=== PATIENT | female | born 1940 | race Caucasian/White ===

== ENCOUNTER → 2017-03-22 | Outpatient (CLI) | payer MEDICARE, OTHER ==
--- NOTE | 2017-03-22 12:49 | Diagnostic Imaging Report ---
PROCEDURE: MRI right joint lower extremity without contrast. TECHNIQUE: Multiplanar, multisequence non contrast-enhanced MRI of the right lower extremity was accomplished. INDICATION: Right ankle pain. FINDINGS: There is mild to moderate amount of fluid in the tendon sheath of the peroneus longus and peroneus brevis suggestive of tenosynovitis. The tendon itself demonstrates no evidence of tear. The flexor hallucis longus tendon sheaths demonstrates small amount of fluid which is only seen at the level of the ankle joint with an adjacent ankle effusion probably secondary to communication with the joint rather than tenosynovitis. There is an os navicularis seen with edema seen around the posterior tibial tendon within the tendon sheath just proximal to the location of the os navicularis. The os navicularis itself demonstrates mild marrow edema. There is also marrow edema in the distal aspect of the lateral malleolus and prominent marrow edema along the anterior subtalar joint with subchondral cyst formation. There is also similar subchondral edema along the posterior aspect of the ankle and the talar head and posterior aspect of the tibial plafond. There is near complete loss of articular cartilage seen at the mid subtalar joint level with fluid signal filling the space seen. There is also areas of subchondral cyst formation within the intertarsal joints likely degenerative. The extensor tendons demonstrate no definite abnormality. The posterior talofibular ligament appears thickened probably secondary to old injury. The anterior talofibular ligament is intact. The medial ligaments demonstrate mild thickening probably related to old injury. There is also bone fragment at the undersurface of the medial malleolus measuring 5 mm without significant marrow abnormality likely related to old fracture. The Achilles tendon is normal. The plantar fascia demonstrate no significant thickening or evidence of focal inflammatory process around it. There is diffuse mild areas of subcutaneous edema however around the ankle and hindfoot region. IMPRESSION: 1. There is evidence of tenosynovitis involving the peroneal tendons and the posterior tibial tendon proximal to os navicularis. 2. 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 The degenerative changes are worst at the mid subtalar joints, where there is near-complete loss of the articular cartilage seen. Dictated by: Dictated on workstation # [id number]
== END ==
LOC: RAD 07:59
PROVIDERS: ATTEND Podiatrist Foot & Ankle Surgery
DX: M76.71 Peroneal tendinitis, right leg (principal); M19.071 Primary osteoarthritis, right ankle and foot
CPT/HCPCS: 73721

== ENCOUNTER 2017-08-30 20:57 | Outpatient (CLI) | payer MEDICARE, OTHER | END 2017-08-31 05:20 | disposition home or self-care (01) | LOC: SLEEP 20:57 | PROVIDERS: ATTEND Nurse Practitioner | DX: G47.33 Obstructive sleep apnea (adult) (pediatric) (principal) | CPT/HCPCS: 95810 ==

== ENCOUNTER 2017-11-03 10:00 | Outpatient (CLI) | payer MEDICARE, OTHER | END 2017-11-03 10:38 | disposition home or self-care (01) | LOC: SLEEP 10:00 | PROVIDERS: ATTEND Nurse Practitioner | DX: G47.33 Obstructive sleep apnea (adult) (pediatric) (principal); G47.10 Hypersomnia, unspecified; R06.83 Snoring ==

== ENCOUNTER → 2019-02-22 | Outpatient (CLI) | payer MEDICARE, OTHER | LOC: CARD 09:18 | PROVIDERS: ATTEND Family Medicine | DX: R60.0 Localized edema (principal) | CPT/HCPCS: 93306 ==

== ENCOUNTER 2019-05-27 11:13 | Inpatient (IN) | payer MEDICARE, OTHER ==
[~2019-05-27] VITALS: Ht 157.5 cm; Wt 133.5 kg
[2019-05-27] MEDS ORDERED: LACTATED RINGERS 1,000 ML IV ONE ×2 (11:31→12:29)
[2019-05-27 11:35] LABS: BASOPHILS % (AUTO) 0 % (0-10); EOSINOPHILS % (AUTO) 0 % (0-10); HEMATOCRIT 36 % (35-52); HEMOGLOBIN 11.7 G/DL (11.5-16.0); LYMPHOCYTES # (AUTO) 2.4 X 10^3 (1.0-4.0); LYMPHOCYTES % (AUTO) 10 % (12-44); MEAN CORPUSCULAR HGB CONC 33 G/DL (32-36); MEAN CORPUSCULAR VOLUME 94 FL (80-99); MEAN PLATELET VOLUME 10.8 FL (7.4-10.4); MONOCYTES # (AUTO) 0.9 X 10^3 (0.0-1.0); MONOCYTES % (AUTO) 4 % (0-12); NEUTROPHILS # (AUTO) 19.3 X 10^3 (1.8-7.8); NEUTROPHILS % (AUTO) 85 % (42-75); PLATELET COUNT 298 10^3/uL (130-400); RED CELL DISTRIBUTION WIDTH 13.8 % (10.0-14.5); WHITE BLOOD COUNT 22.7 10^3/uL (4.3-11.0)
[2019-05-27 11:36] LABS: MEAN CORPUSCULAR HEMOGLOBIN 30 PG (25-34)
[2019-05-27] MEDS ORDERED: ONDANSETRON 4 MG/2 ML (SDV) Z0FRAN IVP ONE (11:45)
[2019-05-27 11:49] LABS: BAND NEUTROPHILS 0 %; EOSINOPHILS % (MANUAL) 0 %; LYMPHOCYTES % (MANUAL) 12 %; MONOCYTES % (MANUAL) 3 %; NEUTROPHILS % (MANUAL) 85 %
[2019-05-27 11:50] LABS: BASOPHILS % (MANUAL) 0 %; RBC MORPH NORMAL
[2019-05-27 11:52] LABS: INR 1.3 (0.8-1.4); PROTHROMBIN TIME PATIENT 16.3 SEC (12.2-14.7)
[2019-05-27 12:05] LABS: ALBUMIN 3.8 GM/DL (3.2-4.5); BILIRUBIN,TOTAL 0.9 MG/DL (0.1-1.0); CALCIUM 9.4 MG/DL (8.5-10.1); CREATININE SERUM 1.44 MG/DL (0.60-1.30); POTASSIUM 3.6 MMOL/L (3.6-5.0); TOTAL PROTEIN 7.2 GM/DL (6.4-8.2)
[2019-05-27] MEDS ORDERED: ONDA4TAB10 PO (12:10)
[2019-05-27] MEDS ORDERED: GABA-486 PO (12:10)
[2019-05-27] MEDS ORDERED: SIMV40TA4 PO (12:10)
[2019-05-27] MEDS ORDERED: HYDR-3812 PO (12:10)
[2019-05-27] MEDS ORDERED: PRD20T (12:10)
[2019-05-27] MEDS ORDERED: AMIT10TA6 PO (12:10)
[2019-05-27] MEDS ORDERED: FURO40TA4 PO (12:10)
[2019-05-27] MEDS ORDERED: OXYC10TA7 PO (12:10)
[2019-05-27] MEDS ORDERED: LEVO50TA PO (12:10)
[2019-05-27] MEDS ORDERED: LISI10TA2 PO (12:10)
[2019-05-27] MEDS ORDERED: POTA20TA8 PO (12:10)
[2019-05-27] MEDS ORDERED: fentaNYL INJECTION 100 MCG/2 ML AMP IVP ONE (12:30)
[2019-05-27] MEDS ORDERED: metroNIDAZOLE 500MG/100ML IVPB 100 ML IV ONE (12:45)
[2019-05-27] MEDS ORDERED: cefTRIAXone FOR IV USE 1,000 MG in WATER (STERILE) FOR INJECTION 10 ML IV ONE (12:45)
--- NOTE | 2019-05-27 12:47 | Diagnostic Imaging Report ---
PROCEDURE: CT abdomen and pelvis without contrast. TECHNIQUE: Multiple contiguous axial images were obtained through the abdomen and pelvis without the use of intravenous contrast. Auto Exposure Controls were utilized during the CT exam to meet ALARA standards for radiation dose reduction. INDICATION: Abdominal pain. COMPARISON: There are no prior studies available for comparison. FINDINGS: The images through the low pelvis do show generalized thickening of the wall of the sigmoid colon. There are several diverticula in this area and there may be slight distortion of the pericolic fat in this region as well. The combination of these findings does suggest that there is an element of mild acute diverticulitis present. There is also suggestion of mild generalized thickening of the wall of the ascending colon and cecum and there may be slight distortion of the pericolonic fat in this area as well. The possibility that there is an element of mild colitis involving these segments of the colon should be considered as well. Furthermore there are few fluid filled segments of small bowel present. This finding could be related to a mild ileus perhaps secondary to enteritis. There is no pelvic mass or free fluid collection noted. There do appear to be surgical sutures in the right lower quadrant. These are of uncertain etiology. Correlation with patient's history would be recommended. The appendix was not well visualized. The gallbladder is surgically absent as well. The uterus was not visualized, it most likely too is surgically absent. Correlation with the patient's surgical history would be recommended. The urinary bladder is difficult to assess due to streak artifact related to the total hip prosthesis on the right. The liver, spleen, pancreas, kidneys, adrenals, aorta and inferior vena cava show no sign of an acute abnormality. The stomach is not well distended and consequently difficult to assess. There is a 2.5 x 3.5 cm hiatal hernia. The lung bases are generally clear. The bone windows show no sign of an acute fracture or of a destructive lesion. There is a grade I spondylolisthesis of L4 with respect to L5 and there is narrowing of the disc space at this level. There is also trefoil stenosis at the L4-L5 level and at L3-L4. IMPRESSION: 1. The findings do suggest mild acute/subacute sigmoid diverticulitis. There also appears to be mild colitis involving the ascending colon and cecum. Enteritis is suspected as well. 2. There is no acute abnormality of the abdomen and pelvis noted otherwise. 3. There are surgical sutures in the right lower quadrant. Correlation with the patient's surgical history would be recommended. The gallbladder and uterus are also surgically absent and there has been a total hip prosthesis procedure on the right. 4. 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 5. These results were discussed with Madhuri Hollis APRN at the time of this dictation. Dictated by: Dictated on workstation # [id number]
[2019-05-27 13:13] LABS: BILIRUBIN,URINE NEGATIVE (NEGATIVE); CLARITY,URINE CLEAR; COLOR,URINE YELLOW; GLUCOSE, URINE (UA) NEGATIVE (NEGATIVE); KETONES,URINE 1+ (NEGATIVE); LEUKOCYTE ESTERASE ,URINE 1+ (NEGATIVE); NITRITE,URINE POSITIVE (NEGATIVE); PH,URINE 5 (5-9); PROTEIN,URINE 3+ (NEGATIVE); UROBILINOGEN,URINE 1 MG/DL (NORMAL)
[2019-05-27 13:21] LABS: BACTERIA,URINE LARGE /HPF
--- NOTE | 2019-05-27 13:45 | ED Abdominal Pain ---
General Chief Complaint: Abdominal/GI Problems Stated Complaint: ABD PAIN Nursing Triage Note: Pt to ED via EMS for severe abdominal pain. Pt reports this has been an ongoing problem since having hip surgery in March. Pt reports feeling constipated, but reports solid BM this morning. Pt reports taking hydrocodone and oxycodone. Pt also reports no food intake since Mon. Pt c/o nausea. Pt visibly distended in the abdomen and no bowel sounds heard. Sepsis Screen: No Definite Risk History of Present Illness Date Seen by Provider: May 27, 2019 Time Seen by Provider: 11:15 Initial Comments 78 year old female arrives via EMS for generalized abdominal pain since 05/23/19. She reports constipation, nausea and vomiting with the abdominal pain. No history of diverticulitis, Crohn's, ulcerative colitis or other chronic abdominal problems. History of appendectomy when she had her hysterectomy and cholecystectomy. She had a total hip replacement on April 09, [address] Gaytan at [place]. Since then she's intermittently been taking hydrocodone and oxycodone. Was not started on a stool softener. She took Dulcolax yesterday and had a BM this morning. She is weaning off her walker and doing PT for her hip. She is having problems with Sciatica for her back and right leg. She started Prednisone last week. She reports a normal Colonoscopy about [address] Arellano. Timing/Duration: 4-5 Days Severity/Quality: Moderate Location: Generalized Abdomen Radiation: No Radiation Associated Symptoms: Nausea/Vomiting Allergies and Home Medications Allergies Uncoded Allergies: SULFA (Allergy, Unknown, 05/27/19) Home Medications Amitriptyline HCl 10 Mg Tablet, 10 MG PO HS, (Reported) Aspirin 81 Mg Tablet., 81 MG PO BID, (Reported) Docusate Sodium 100 Mg Capsule, 100 MG PO DAILY PRN for CONSTIPATION-1ST LINE, (Reported) Furosemide 40 Mg Tablet, 40 MG PO DAILY, (Reported) Gabapentin 100 Mg Capsule, 100 MG PO TID, (Reported) Hydrocodone/Acetaminophen 1 Each Tablet, 1 TAB PO Q4H PRN for PAIN-MODERATE, (Reported) Levothyroxine Sodium 50 Mcg Tablet, 50 MCG PO DAILY, (Reported) Lisinopril 10 Mg Tablet, 10 MG PO DAILY, (Reported) Ondansetron HCl 4 Mg Tablet, 4 MG PO TID PRN for NAUSEA/VOMITING-1ST LINE, (Reported) Oxycodone HCl 10 Mg Tablet, 10 MG PO Q12H PRN for PAIN-SEVERE, (Reported) Potassium Chloride 20 Meq Tab.er.prt, 20 MEQ PO DAILY, (Reported) Simvastatin 40 Mg Tablet, 40 MG PO HS, (Reported) Patient Home Medication List Home Medication List Reviewed: Yes Review of Systems Review of Systems Constitutional: no symptoms reported, see HPI Gastrointestinal: See HPI, Abdominal Pain, Constipated, Nausea, Poor Appetite; Denies Rectal Bleeding; Vomiting All Other Systems Reviewed Negative Unless Noted: Yes Past [place]-Ngasxu-Bmcsha Hx Past Med/Social Hx: Reviewed Nursing Past Med/Soc Hx Patient Social History Alcohol Use: Denies Use Recreational Drug Use: No 2nd Hand Smoke Exposure: No Recent Foreign Travel: No Contact w/Someone Who Travel: No Recent Infectious Disease Expo: No Recent Hopitalizations: Yes (hip sx 04/15) Physical Abuse: No Sexual Abuse: No Past Medical History Surgeries: Yes Appendectomy, Hysterectomy, Orthopedic Respiratory: No Cardiac: Yes Hypertension Neurological: No Genitourinary: No Gastrointestinal: No Musculoskeletal: No Endocrine: No Cancer: No Psychosocial: No Integumentary: No Blood Disorders: No Physical Exam Vital Signs Vital Signs - First Documented 05/27/19 11:13 Temp 37.5 Pulse 75 Resp 15 B/P (MAP) 151/65 (93) Pulse Ox 92 O2 Delivery Room Air Capillary Refill : Less Than 3 Seconds Height/Weight/BMI Height: 5'2.00" Weight: 200lbs. 0.0oz. [id number]; 38.00 BMI Method: General Appearance: WD/WN, no apparent distress HEENT: PERRL/EOMI, normal ENT inspection, TMs normal, pharynx normal, other (oral mucosa pink and dry) Neck: non-tender, full range of motion, supple, normal inspection Respiratory: chest non-tender, lungs clear, normal breath sounds Cardiovascular: normal peripheral pulses, regular rate, rhythm, no murmur Gastrointestinal: distended; No guarding, No rebound; tenderness (generalized), other (no bowel sounds present in the RLQ or RUQ, hypoactive in LUQ and LLQ) Extremities: normal range of motion, non-tender, normal inspection, normal capi llary refill, pedal edema (1+), other (well-healed right total hip incision, no erythema, tenderness or warmth.) Neurologic/Psychiatric: no motor/sensory deficits, alert, normal mood/affect, oriented x 3 Skin: normal color, warm/dry Focused Exam Lactate Level 05/27/19 12:55: Lactic Acid Level 1.46 Lactic Acid Level Laboratory Tests Test 05/27/19 12:55 Lactic Acid Level 1.46 MMOL/L (0.50-2.00) Progress/Results/Core Measures Results/Orders Lab Results Laboratory Tests Test 05/27/19 11:30 05/27/19 12:50 05/27/19 12:55 Range/Units White Blood Count 22.7 H 4.3-11.0 10^3/uL Red Blood Count 3.84 L 4.35-5.85 10^6/uL Hemoglobin 11.7 11.5-16.0 G/DL Hematocrit 36 35-52 % Mean Corpuscular Volume 94 80-99 FL Mean Corpuscular Hemoglobin 30 25-34 PG Mean Corpuscular Hemoglobin Concent 33 32-36 G/DL Red Cell Distribution Width 13.8 10.0-14.5 % Platelet Count 298 130-400 10^3/uL Mean Platelet Volume 10.8 H 7.4-10.4 FL Neutrophils (%) (Auto) 85 H 42-75 % Lymphocytes (%) (Auto) 10 L 12-44 % Monocytes (%) (Auto) 4 0-12 % Eosinophils (%) (Auto) 0 0-10 % Basophils (%) (Auto) 0 0-10 % Neutrophils # (Auto) 19.3 H 1.8-7.8 X 10^3 Lymphocytes # (Auto) 2.4 1.0-4.0 X 10^3 Monocytes # (Auto) 0.9 0.0-1.0 X 10^3 Eosinophils # (Auto) 0.0 0.0-0.3 10^3/uL Basophils # (Auto) 0.0 0.0-0.1 10^3/uL Neutrophils % (Manual) 85 % Lymphocytes % (Manual) 12 % Monocytes % (Manual) 3 % Eosinophils % (Manual) 0 % Basophils % (Manual) 0 % Band Neutrophils 0 % Blood Morphology Comment NORMAL Erythrocyte Sedimentation Rate 32 H 0-30 MM/HR Prothrombin Time 16.3 H 12.2-14.7 SEC INR Comment 1.3 0.8-1.4 Activated Partial Thromboplast Time 27 24-35 SEC Sodium Level 138 135-145 MMOL/L Potassium Level 3.6 3.6-5.0 MMOL/L Chloride Level 103 98-107 MMOL/L Carbon Dioxide Level 23 21-32 MMOL/L Anion Gap 12 5-14 MMOL/L Blood Urea Nitrogen 32 H 7-18 MG/DL Creatinine 1.44 H 0.60-1.30 MG/DL Estimat Glomerular Filtration Rate 35 BUN/Creatinine Ratio 22 Glucose Level 153 H 70-105 MG/DL Calcium Level 9.4 8.5-10.1 MG/DL Corrected Calcium 9.6 8.5-10.1 MG/DL Total Bilirubin 0.9 0.1-1.0 MG/DL Aspartate Amino Transf (AST/SGOT) 13 5-34 U/L Alanine Aminotransferase (ALT/SGPT) 16 0-55 U/L Alkaline Phosphatase 131 40-136 U/L C-Reactive Protein High Sensitivity 11.76 H 0.00-0.50 MG/DL Total Protein 7.2 6.4-8.2 GM/DL Albumin 3.8 3.2-4.5 GM/DL Amylase Level 15 L 25-125 U/L Lipase 7 L 8-78 U/L Urine Color YELLOW Urine Clarity CLEAR Urine pH 5 5-9 Urine Specific [place] 1.020 1.016-1.022 Urine Protein 3+ H NEGATIVE Urine Glucose (UA) NEGATIVE NEGATIVE Urine Ketones 1+ H NEGATIVE Urine Nitrite POSITIVE H NEGATIVE Urine Bilirubin NEGATIVE NEGATIVE Urine Urobilinogen 1 NORMAL MG/DL Urine Leukocyte Esterase 1+ H NEGATIVE Urine RBC (Auto) NEGATIVE NEGATIVE Urine RBC NONE /HPF Urine WBC 2-5 /HPF Urine Squamous Epithelial Cells NONE /HPF Urine Crystals NONE /LPF Urine Bacteria LARGE H /HPF Urine Casts NONE /LPF Urine Mucus NEGATIVE /LPF Urine Culture Indicated YES Lactic Acid Level 1.46 0.50-2.00 MMOL/L My Orders Orders - FAN CEVALLOS Ct Abdomen/Pelvis Wo (05/27/19 11:29) Amylase (05/27/19 11:29) Cbc With Automated Diff (05/27/19 11:29) Comprehensive Metabolic Panel (05/27/19 11:29) Lipase (05/27/19 11:29) Protime With Inr (05/27/19 11:29) Partial Thromboplastin Time (05/27/19 11:29) Ua Culture If Indicated (05/27/19 11:29) Ed Iv/Invasive Line Start (05/27/19 11:31) Lactated Ringers (Lr 1000 Ml Iv Solution (05/27/19 11:31) Ondansetron Injection (Zofran Injectio (05/27/19 11:45) Manual Differential (05/27/19 11:30) Hs C Reactive Protein (05/27/19 11:48) Erythrocyte Sedimentation Rate (05/27/19 11:48) Catheter(Urinary) Insert & Ass 03,15 (05/27/19 12:28) Fentanyl Injection (Sublimaze Injection (05/27/19 12:30) Ed Iv/Invasive Line Start (05/27/19 12:29) Lactated Ringers (Lr 1000 Ml Iv Solution (05/27/19 12:29) Blood Culture (05/27/19 12:44) Lactic Acid Analyzer (05/27/19 12:44) Ceftriaxone For Iv Use (Rocephin For I (05/27/19 12:45) Metronidazole 500mg/100ml Ivpb (Flagyl 5 (05/27/19 12:45) Urine Culture (05/27/19 12:50) Medications Given in ED Current Medications Medications Dose Ordered Sig/Bk Route Start Time Stop Time Status Last Admin Dose Admin Ceftriaxone Sodium 1000 mg/ Sterile Water 10 ml @ 200 mls/hr ONCE ONCE IV 05/27/19 12:45 05/27/19 12:47 DC 05/27/19 13:42 200 MLS/HR Fentanyl Citrate 50 mcg ONCE ONCE IVP 05/27/19 12:30 05/27/19 12:31 DC 05/27/19 12:36 50 MCG Lactated Ringer's 1,000 ml @ 0 mls/hr Q0M ONCE IV 05/27/19 11:31 05/27/19 11:32 DC 05/27/19 11:38 1,000 MLS/HR Lactated Ringer's 1,000 ml @ 0 mls/hr Q0M ONCE IV 05/27/19 12:29 05/27/19 12:30 DC 05/27/19 12:35 200 MLS/HR Metronidazole 100 ml @ 100 mls/hr ONCE ONCE IV 05/27/19 12:45 05/27/19 13:44 DC 05/27/19 14:09 100 MLS/HR Ondansetron HCl 8 mg ONCE ONCE IVP 05/27/19 11:45 05/27/19 11:46 DC 05/27/19 11:38 8 MG Vital Signs/I&O 05/27/19 11:13 Temp 37.5 Pulse 75 Resp 15 B/P (MAP) 151/65 (93) Pulse Ox 92 O2 Delivery Room Air Blood Pressure Mean: 93 Progress Progress Note : Time: 11:15 Progress Note Patient seen and evaluated, will obtain labs, IV fluids, Zofran 8 mg IV for nausea, and maintain NPO. 1134 . Fentanyl 50 g IV for pain. 1210 CT results reviewed with radiologist. Results discussed with the patient and her daughter. Patient reports her pain has improved since the fentanyl, no further nausea and vomiting. 1230 will obtain blood cultures and lactic acid. Then start Flagyl 500 mg IV and ceftriaxone 1 g IV[address] Herman, agreed with recommendation for admission. [address] Santos, will consult patient. No further order, keep NPO. No NG at this time. 1400 Patient continuing to have no complaints. Awaiting bed placement. Diagnostic Imaging Diagonstic Imaging: CT Plain Films/CT/US/NM/MRI: abdomen, pelvis Comments NAME: ODALIS WATTS [employer] REC#: [id number] PT STATUS: REG ER : 1940 PHYSICIAN: FAN CEVALLOS ADMIT DATE: 05/27/19/ER Draft Date of Exam:05/27/19 CT ABDOMEN/PELVIS WO PROCEDURE: CT abdomen and pelvis without contrast. TECHNIQUE: Multiple contiguous axial images were obtained through the abdomen and pelvis without the use of intravenous contrast. Auto Exposure Controls were utilized during the CT exam to meet ALARA standards for radiation dose reduction. INDICATION: Abdominal pain. COMPARISON: There are no prior studies available for comparison. FINDINGS: The images through the low pelvis do show generalized thickening of the wall of the sigmoid colon. There are several diverticula in this area and there may be slight distortion of the pericolic fat in this region as well. The combination of these findings does suggest that there is an element of mild acute diverticulitis present. There is also suggestion of mild generalized thickening of the wall of the ascending colon and cecum and there may be slight distortion of the pericolonic fat in this area as well. The possibility that there is an element of mild colitis involving these segments of the colon should be considered as well. Furthermore there are few fluid filled segments of small bowel present. This finding could be related to a mild ileus perhaps secondary to enteritis. There is no pelvic mass or free fluid collection noted. There do appear to be surgical sutures in the right lower quadrant. These are of uncertain etiology. Correlation with patient's history would be recommended. The appendix was not well visualized. The gallbladder is surgically absent as well. The uterus was not visualized, it most likely too is surgically absent. Correlation with the patient's surgical history would be recommended. The urinary bladder is difficult to assess due to streak artifact related to the total hip prosthesis on the right. The liver, spleen, pancreas, kidneys, adrenals, aorta and inferior vena cava show no sign of an acute abnormality. The stomach is not well distended and consequently difficult to assess. There is a 2.5 x 3.5 cm hiatal hernia. The lung bases are generally clear. The bone windows show no sign of an acute fracture or of a destructive lesion. There is a grade I spondylolisthesis of L4 with respect to L5 and there is narrowing of the disc space at this level. There is also trefoil stenosis at the L4-L5 level and at L3-L4. IMPRESSION: 1. The findings do suggest mild acute/subacute sigmoid diverticulitis. There also appears to be mild colitis involving the ascending colon and cecum. Enteritis is suspected as well. 2. There is no acute abnormality of the abdomen and pelvis noted otherwise. 3. There are surgical sutures in the right lower quadrant. Correlation with the patient's surgical history would be recommended. The gallbladder and uterus are also surgically absent and there has been a total hip prosthesis procedure on the right. 4. 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 Dictated on workstation # [id number] Dict: 05/27/19 1221 Trans: 05/27/19 1247 [facility] [id number] Interpreted by: ANALI ENCARNACION MD Electronically signed by: Reviewed: Reviewed by Me, Discussed w/Radiologist Departure Impression Primary Impression: Constipation Qualified Codes: K59.09 - Other constipation Additional Impressions: Abdominal pain Qualified Codes: R10.84 - Generalized abdominal pain Diverticulitis of intestine Qualified Codes: K57.20 - Diverticulitis of large intestine with perforation and abscess without bleeding Urinary tract infection Qualified Codes: N30.01 - Acute cystitis with hematuria Vomiting Qualified Codes: R11.14 - Bilious vomiting Disposition: 09 ADMITTED INPATIENT Condition: Stable Admissions Decision to Admit Reason: Admit from ER (General) Decision to Admit/Date: May 27, 2019 Time/Decision to Admit Time: 13:15 Departure-Patient Inst. Referrals: MADYSON HERMAN MD (PCP/Family) Primary Care Physician Copy Copies To 1: MADYSON HERMAN MD, AMY ARNP May 27, 2019 13:45
--- NOTE | 2019-05-27 14:18 | NUR ---
Pt's temperature 101.2 at this time. Blankets removed from pt at this time. Madhuri Hollis notified.
[2019-05-27] MEDS ORDERED: ACETAMINOPHEN 325 MG TABLET PO ONE (14:30)
--- NOTE | 2019-05-27 14:55 | NUR ---
Chen removed per Dr. Gómez's instruction.
[2019-05-27 15:10] VITALS: BP 137/63
--- NOTE | 2019-05-27 15:10 | NUR ---
ODALIS WATTS admitted to room 406-1, with an admitting diagnosis of UTI, DIVERTICULITIS, N/V, ABDOMINAL PAIN, ILLEUS, on 05/27/19 from ED via [facility], accompanied by STAFF AND FAMILY.ODALIS WATTS introduced to surroundings, call light, bed controls, phone, TV, temperature control, lights, meal times, smoking policy, visitor policy, side rail policy, bathrooms and showers. Patient Rights given to patient in the handbook. ODALIS WATTS verbalizes understanding that [facility] is not responsible for the loss or damage to any personal effects or valuables that are kept in the patients posession during their hospitalization. ODALIS WATTS verbalizes understanding of Interdisciplinary Patient Education. Patient and/or family were informed about the Rapid Response Team and its purpose.
[2019-05-27] MEDS ORDERED: CATHETER FLUSH 10 ML SYR IV PRN (15:30)
[2019-05-27] MEDS: fentaNYL INJECTION 100 MCG/2 ML AMP IV PRN (15:40)
--- NOTE | 2019-05-27 15:44 | Physical Therapy Progress Note ---
Therapy Progress Note Patient adamantly declined PT on this date do to abdominal pain and fatigue. Family present. PT to attempt in a.m. 1 ref ([id number]) RYLAND APONTE PT May 27, 2019 15:44
[2019-05-27] MEDS: NS IV 1000 ML 1,000 ML IV SCH (15:46)
[2019-05-27] MEDS ORDERED: DOCU-143 PO (16:12)
[2019-05-27] MEDS ORDERED: ASPI-983 PO (16:12)
[2019-05-27] MEDS ORDERED: FLU QUADRIvalent (5+ YOA) 2019-2020 (AFLURIA) 0.5 ML IM ONE (18:45)
--- NOTE | 2019-05-27 18:45 | Consultation - Surgery ---
[facility]LLAN[facility] 05/27/19 1845: History of Present Illness History of Present Illness Patient Consulted On(fuad/time) 05/27/19 18:36 Date Seen by Provider: May 27, 2019 Time Seen by Provider: 17:20 History of Present Illness Consult requested by Dr. Gómez for diverticulitis. Patient is an 78 year old female that presented to ED with a 5 day history of generalized abdominal pain, constipation, and n/v. Pain is non-radiating, rated 10/10 at its worse, and not aggravated or alleviated by anything. CT scan of abdomen/pelvis showed diverticulitis and mild colitis of the ascending colon and cecum. Allergies and Home Medications Allergies Uncoded Allergies: SULFA (Allergy, Unknown, 05/27/19) Home Medications Amitriptyline HCl 10 Mg Tablet, 10 MG PO HS, (Reported) Aspirin 81 Mg Tablet.dr, 81 MG PO BID, (Reported) Docusate Sodium 100 Mg Capsule, 100 MG PO DAILY PRN for CONSTIPATION-1ST LINE, (Reported) Furosemide 40 Mg Tablet, 40 MG PO DAILY, (Reported) Gabapentin 100 Mg Capsule, 100 MG PO TID, (Reported) Hydrocodone/Acetaminophen 1 Each Tablet, 1 TAB PO Q4H PRN for PAIN-MODERATE, (Reported) Levothyroxine Sodium 50 Mcg Tablet, 50 MCG PO DAILY, (Reported) Lisinopril 10 Mg Tablet, 10 MG PO DAILY, (Reported) Ondansetron HCl 4 Mg Tablet, 4 MG PO TID PRN for NAUSEA/VOMITING-1ST LINE, (Reported) Oxycodone HCl 10 Mg Tablet, 10 MG PO Q12H PRN for PAIN-SEVERE, (Reported) Potassium Chloride 20 Meq Tab.er.prt, 20 MEQ PO DAILY, (Reported) Simvastatin 40 Mg Tablet, 40 MG PO HS, (Reported) Patient Home Medication List Home Medication List Reviewed: Yes Past Hlkplev-Mkvgtf-Lvdlmj Hx Patient Social History Alcohol Use: Denies Use Recreational Drug Use: No 2nd Hand Smoke Exposure: No Recent Foreign Travel: No Contact w/Someone Who Travel: No Recent Infectious Disease Expo: No Recent Hopitalizations: Yes (hip sx 04/15) Immunizations Up To Date Date of Pneumonia Vaccine: Aug 28, 2013 Surgeries History of Surgeries: Yes Surgeries: Appendectomy, Hysterectomy, Orthopedic Respiratory History of Respiratory Disorde: No Cardiovascular History of Cardiac Disorders: Yes Cardiac Disorders: Hypertension Neurological History of Neurological Disord: No Genitourinary History of Genitourinary Disor: No Gastrointestinal History of Gastrointestinal Di: No Musculoskeletal History of Musculoskeletal Dis: No Endocrine History of Endocrine Disorders: No Cancer History of Cancer: No Psychosocial History of Psychiatric Problem: No Integumentary History of Skin or Integumenta: No Blood Transfusions History of Blood Disorders: No Review of Systems-General Constitutional: no symptoms reported EENTM: no symptoms reported Respiratory: no symptoms reported Cardiovascular: no symptoms reported Gastrointestinal: see HPI, abdominal pain (Generalized, diffuse), constipation; No diarrhea, No hematemesis, No jaundice, No melena; nausea, vomiting Genitourinary: no symptoms reported Musculoskeletal: no symptoms reported Skin: no symptoms reported Psychiatric/Neurological: No Symptoms Reported Physical Exam-General Problems Physical Exam Vital Signs Vital Signs - First Documented 05/27/19 11:13 Temp 37.5 Pulse 75 Resp 15 B/P (MAP) 151/65 (93) Pulse Ox 92 O2 Delivery Room Air Capillary Refill : Less Than 3 Seconds General Appearance: no apparent distress HEENT: PERRL/EOMI, pharynx normal Neck: full range of motion, normal inspection Respiratory: no respiratory distress, no accessory muscle use Cardiovascular: No regular rate, rhythm; other (irregular heartbeat, skipped beats. ) Gastrointestinal: distended, tenderness (diffuse) Rectal: deferred Back: no CVA tenderness Extremities: normal inspection Neurologic/Psychiatric: no motor/sensory deficits, alert, normal mood/affect, oriented x 3 Skin: normal color, warm/dry Lymphatic: no adenopathy Data Review Labs Laboratory Tests 05/27/19 11:30: White Blood Count 22.7H, Red Blood Count 3.84L, Hemoglobin 11.7, Hematocrit 36, Mean Corpuscular Volume 94, Mean Corpuscular Hemoglobin 30, Mean Corpuscular Hemoglobin Concent 33, Red Cell Distribution Width 13.8, Platelet Count 298, Mean Platelet Volume 10.8H, Neutrophils (%) (Auto) 85H, Lymphocytes (%) (Auto) 10L, Monocytes (%) (Auto) 4, Eosinophils (%) (Auto) 0, Basophils (%) (Auto) 0, Neutrophils # (Auto) 19.3H, Lymphocytes # (Auto) 2.4, Monocytes # (Auto) 0.9, Eosinophils # (Auto) 0.0, Basophils # (Auto) 0.0, Neutrophils % (Manual) 85, Lymphocytes % (Manual) 12, Monocytes % (Manual) 3, Eosinophils % (Manual) 0, Basophils % (Manual) 0, Band Neutrophils 0, Blood Morphology Comment NORMAL, Erythrocyte Sedimentation Rate 32H, Prothrombin Time 16.3H, INR Comment 1.3, Activated Partial Thromboplast Time 27, Sodium Level 138, Potassium Level 3.6, Chloride Level 103, Carbon Dioxide Level 23, Anion Gap 12, Blood Urea Nitrogen 32H, Creatinine 1.44H, Estimat Glomerular Filtration Rate 35, BUN/Creatinine Ratio 22, Glucose Level 153H, Calcium Level 9.4, Corrected Calcium 9.6, Total Bilirubin 0.9, Aspartate Amino Transf (AST/SGOT) 13, Alanine Aminotransferase (ALT/SGPT) 16, Alkaline Phosphatase 131, C-Reactive Protein High Sensitivity 11.76H, Total Protein 7.2, Albumin 3.8, Amylase Level 15L, Lipase 7L 05/27/19 12:50: Urine Color YELLOW, Urine Clarity CLEAR, Urine pH 5, Urine Specific [place] 1.020, Urine Protein 3+H, Urine Glucose (UA) NEGATIVE, Urine Ketones 1+H, Urine Nitrite POSITIVEH, Urine Bilirubin NEGATIVE, Urine Urobilinogen 1, Urine Leukocyte Esterase 1+H, Urine RBC (Auto) NEGATIVE, Urine RBC NONE, Urine WBC 2- 5, Urine Squamous Epithelial Cells NONE, Urine Crystals NONE, Urine Bacteria LARGEH, Urine Casts NONE, Urine Mucus NEGATIVE, Urine Culture Indicated YES 05/27/19 12:55: Lactic Acid Level 1.46 Assessment/Plan Assessment/Plan Assessment/Plan Diverticulitis, sigmoid Colitis of ascending colon and cecum Generalized abdominal pain Constipation 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 She recently had right hip replaced by Dr. Gaytan and began to have worsening abdominal pain. Pain is diffuse. Nothing really makes it better, nothing really makes it worse. The pain does not radiate. She rates it moderate to severe. She was having constipation but did have a bm yesterday that did not have any blood. She has had some nausea/vomiting. She may have had some fever. She had ct scan re reviewed demonstrating colitis of the right colon and diverticulitis mild left side. Allergies and Home Medications Allergies Uncoded Allergies: SULFA (Allergy, Unknown, 05/27/19) Home Medications Amitriptyline HCl 10 Mg Tablet, 10 MG PO HS, (Reported) Aspirin 81 Mg Tablet.dr, 81 MG PO BID, (Reported) Docusate Sodium 100 Mg Capsule, 100 MG PO DAILY PRN for CONSTIPATION-1ST LINE, (Reported) Furosemide 40 Mg Tablet, 40 MG PO DAILY, (Reported) Gabapentin 100 Mg Capsule, 100 MG PO TID, (Reported) Hydrocodone/Acetaminophen 1 Each Tablet, 1 TAB PO Q4H PRN for PAIN-MODERATE, (Reported) Levothyroxine Sodium 50 Mcg Tablet, 50 MCG PO DAILY, (Reported) Lisinopril 10 Mg Tablet, 10 MG PO DAILY, (Reported) Ondansetron HCl 4 Mg Tablet, 4 MG PO TID PRN for NAUSEA/VOMITING-1ST LINE, (Reported) Oxycodone HCl 10 Mg Tablet, 10 MG PO Q12H PRN for PAIN-SEVERE, (Reported) Potassium Chloride 20 Meq Tab.er.prt, 20 MEQ PO DAILY, (Reported) Simvastatin 40 Mg Tablet, 40 MG PO HS, (Reported) Patient Home Medication List Home Medication List Reviewed: Yes Past Agekzpb-Elwnbe-Xdeuza Hx Patient Social History Alcohol Use: Denies Use Smoking Status: Never a Smoker Surgeries Surgeries: Appendectomy, Hysterectomy, Orthopedic Cardiovascular Cardiac Disorders: Hypertension Family Medical History Significant Family History: No Pertinent Family Hx Review of Systems-General Constitutional: see HPI, fever EENTM: no symptoms reported Respiratory: no symptoms reported Cardiovascular: no symptoms reported Gastrointestinal: see HPI, abdominal pain (Generalized, diffuse), constipation; No diarrhea, No hematemesis, No melena; nausea, vomiting Genitourinary: no symptoms reported Skin: no symptoms reported Psychiatric/Neurological: No Symptoms Reported Physical Exam-General Problems Physical Exam General Appearance: no apparent distress (laying in bed) HEENT: PERRL/EOMI Neck: full range of motion, normal inspection Respiratory: chest non-tender, no respiratory distress, no accessory muscle use Gastrointestinal: tenderness (diffuse, but more on b/l lower quadrants) Rectal: deferred Back: no CVA tenderness Extremities: normal inspection Neurologic/Psychiatric: no motor/sensory deficits, alert, normal mood/affect, oriented x 3 Skin: normal color, warm/dry Lymphatic: no adenopathy Assessment/Plan Assessment/Plan Assessment/Plan Diverticulitis, sigmoid Colitis of ascending colon and cecum Generalized abdominal pain Constipation s/p right hip replacement umbilical hernia UTI leukocytosis Patient with abdominal pain and ct findings suggestive of colitis and diverticulitis. Placed on antibiotics and currently NPO. Will try conservative measures. No surgical intervention at this time. Repeat labs in am along with physical exam. Will follow. Supervisory-Addendum Brief Verification & Attestation Participated in pt care: history, MDM, physical Personally performed: exam, history, MDM, supervision of care Care discussed with: Medical Student Procedures: n/a Results interpretation: Verified all documentation Verification and Attestation of Medical Student E/M Service A medical student performed and documented this service in my presence. I reviewed and verified all information documented by the medical student and made modifications to such information, when appropriate. I personally performed the physical exam and medical decision making. Najma Malcolm, May 27, 2019,19:35 [facility] May 27, 2019 18:45 NAJMA MALCOLM DO May 28, 2019 14:30
[2019-05-27 19:02] VITALS: BP 134/63
--- NOTE | 2019-05-27 19:52 | History & Physical ---
History of Present Illness History of Present Illness Reason for visit/HPI Patient is an 78-year-old female admitted for intractable abdominal pain. A CT was performed in the ER which showed diverticulitis and colitis. She was started on IV fluids and metronidazole. Rocephin was also started as a urinalysis also demonstrated a urinary tract infection. She was given fentanyl IV which also helped with the abdominal pain. Patient recently had a right hip replacement which she has been struggling with the pain with this as well. She has been taking hydrocodone for this pain. It has been prescribed by myself which likely contributed to her ileus. Last time she ate food was 05/22/19- last bowel movement 05/27/19- prior to this she had not had a bowel movement for 5 days. She become nauseous and vomiting bilious fluid after being admitted to [address] Santos was consulted and will follow along with the case. She'll be nothing by mouth and repeating labs in the morning. Date of Admission May 27, 2019 at 15:22 Date Seen by a Provider: May 27, 2019 Time Seen by a Provider: 19:52 I consulted on this patient on 05/27/19 19:46 Attending Physician Cody Herman MD Admitting Physician Cody Herman MD Consult Dr. Santos Allergies and Home Medications Allergies Uncoded Allergies: SULFA (Allergy, Unknown, 05/27/19) Home Medications Amitriptyline HCl 10 Mg Tablet, 10 MG PO HS, (Reported) Aspirin 81 Mg Tablet.dr, 81 MG PO BID, (Reported) Docusate Sodium 100 Mg Capsule, 100 MG PO DAILY PRN for CONSTIPATION-1ST LINE, (Reported) Furosemide 40 Mg Tablet, 40 MG PO DAILY, (Reported) Gabapentin 100 Mg Capsule, 100 MG PO TID, (Reported) Hydrocodone/Acetaminophen 1 Each Tablet, 1 TAB PO Q4H PRN for PAIN-MODERATE, (Reported) Levothyroxine Sodium 50 Mcg Tablet, 50 MCG PO DAILY, (Reported) Lisinopril 10 Mg Tablet, 10 MG PO DAILY, (Reported) Ondansetron HCl 4 Mg Tablet, 4 MG PO TID PRN for NAUSEA/VOMITING-1ST LINE, (Reported) Oxycodone HCl 10 Mg Tablet, 10 MG PO Q12H PRN for PAIN-SEVERE, (Reported) Potassium Chloride 20 Meq Tab.er.prt, 20 MEQ PO DAILY, (Reported) Simvastatin 40 Mg Tablet, 40 MG PO HS, (Reported) Patient Home Medication List Home Medication List Reviewed: Yes Past Uuymzqa-Wprhrj-Kxqhhx Hx Patient Social History Alcohol Use: Denies Use Recreational Drug Use: No 2nd Hand Smoke Exposure: No Recent Foreign Travel: No Contact w/other who traveled: No Recent Hopitalizations: Yes (hip sx 04/15) Recent Infectious Disease Expo: No Immunizations Up To Date Date of Pneumonia Vaccine: Aug 28, 2013 Surgeries Yes Appendectomy, Hysterectomy, Orthopedic Respiratory No Cardiovascular Yes Hypertension Neurological No Genitourinary No Gastrointestinal No Musculoskeletal No Endocrine History of Endocrine Disorders: No Cancer No Psychosocial History of Psychiatric Problem: No Integumentary History of Skin or Integumenta: No Blood Transfusions History of Blood Disorders: No Review of Systems All Other Systems Reviewed All Other Systems Reviewed: Yes Physical Exam Vital Signs Vital Signs - First Documented 05/27/19 11:13 Temp 37.5 Pulse 75 Resp 15 B/P (MAP) 151/65 (93) Pulse Ox 92 O2 Delivery Room Air Capillary Refill : Less Than 3 Seconds Height, Weight, BMI Height: 5'2.00" Weight: 200lbs. 0.0oz. [id number]; 38.69 BMI Method: General Appearance: Mild Distress, Obese HEENT: PERRL/EOMI Neck: Normal Inspection, Non Tender, Supple Respiratory: Chest Non Tender, Lungs Clear, Normal Breath Sounds, No Accessory Muscle Use Cardiovascular: Regular Rate, Rhythm Gastrointestinal: Soft, Distended, Guarding, Tenderness (lower abdomen) Rectal: Deferred Extremity: Non Tender, Pedal Edema Neurologic/Psychiatric: Alert, Oriented x3, Normal Mood/Affect Skin: Normal Color, Warm/Dry Lymphatic: No Adenopathy Assessment/Plan Assessment/Plan Admission Dx intractable abdominal pain diverticulitis urinary tract infection Admission Status: Inpatient Order (span 2 midnights) Reason for Inpatient Admission: 78 yo f admitted for diverticulitis and intractable abdominal pain- expect her stay to be over 2 midnights as she likely has ileus from opioid use in attempt to treat her right hip pain s/p replacement. She also has acute kidney injury and a urinary tract infection. With multiple comorbidities and medical issues she could decompensate fast and require aggressive care. Assessment and Plan 05/27/19 IVF, NPO- monitor respiratory status with the IVF. Rechecking labs in the AM continue metronidazole and rocephin- checking blood cultures and urine cultures. Dr. Santos consulted. Goal would be to avoid surgery and let her bowels recover with above supportive/interventional methods. DVT ppx: renal dose lovenox, scds Problems: (1) Acute on chronic kidney failure Qualifiers: (2) Right lower quadrant abdominal pain (3) UTI (urinary tract infection) Qualifiers: Qualified Codes: N30.00 - Acute cystitis without hematuria (4) Diverticulitis of intestine Qualifiers: Qualified Codes: K57.20 - Diverticulitis of large intestine with perforation and abscess without bleeding (5) Vomiting Qualifiers: Qualified Codes: R11.14 - Bilious vomiting (6) Hypothyroid (7) Hypertension Clinical Quality Measures DVT/VTE Risk/Contraindication: Risk Factor Score Per Nursin RFS Level Per Nursing on Admit: 3=High CODY HERMAN MD May 27, 2019 19:52
[2019-05-27] MEDS: ONDANSETRON 4 MG/2 ML (SDV) Z0FRAN IV PRN (20:14)
[2019-05-27] MEDS ORDERED: DOCUSATE SODIUM 100 MG (COLACE) CAP PO PRN (20:30)
[2019-05-27] MEDS: GABAPENTIN 100 MG (NEURONTIN) CAP PO SCH (21:00)
[2019-05-27] MEDS: ASPIRIN E.C. 81 MG (ECOTRIN) TAB PO SCH (21:00)
[2019-05-27] MEDS: SIMvastatin 40 MG (ZOCOR) TAB PO SCH (21:00)
[2019-05-27] MEDS: AMITRIPTYLINE 10 MG (ELAVIL) TAB PO SCH (21:00)
[2019-05-28] VITALS: BP 108/71
[2019-05-28] MEDS: ONDANSETRON 4 MG/2 ML (SDV) Z0FRAN IV PRN ×5 (00:41→21:08)
[2019-05-28] MEDS: metroNIDAZOLE 500MG/100ML IVPB 100 ML IV SCH ×4 (00:45→21:08)
[2019-05-28] MEDS ORDERED: meTOprolol 5 MG/5 ML (LOPRESSOR) VIAL ONE (00:52)
[2019-05-28] MEDS ORDERED: meTOprolol 5 MG/5 ML (LOPRESSOR) VIAL IV ONE (01:00)
[2019-05-28] MEDS: fentaNYL INJECTION 100 MCG/2 ML AMP IV PRN ×2 (01:22→11:29)
[2019-05-28] MEDS: ENOXAPARIN 40 MG/0.4 ML (LOVENOX) SYR SQ SCH ×2 (01:34→21:20)
--- NOTE | 2019-05-28 01:52 | NUR ---
0000 THIS NURSE LEATHER DRIER NOTIFIED THAT PT'S PULSE WAS 184 DURING ROUTINE VITAL SIGNS. RN PALPATED RADIAL PULSE WHICH WAS IRREGULAR AND RAPID. PT WAS ALSO HAVING INCREASED RR AT 24, BP WAS 103/74. FISH HEADER, CALEB, NOTIFIED. ALONG W/ DR HERMAN WHO ORDERED ICE TO JUGULAR VEINS, TELEMETRY AND EKG. EKG PREFORMED BY NURSING STAFF SHOWED SUPRAVENTRICULAR TACHYCARDIA. PULSE SLOWLY CAME DOWN TO AND WAS BETWEEN 104-112 AND PT C/O NAUSEA. TELEMETRY REPORTED FROM [facility] IN ICU WAS SINUS TACH. DR HERMAN NOTIFIED AND ORDERED 5 MG METOPROLOL IV ONE TIME AT 0050. THIS NURSE LEATHER DRIER RAN 5 MG/5ML THRU HER IV PIGGYBACK OVER 15 MINUTES. BY 0120 ICU GLASS LINED TANK REPAIRER REPORTED THAT PT WAS IN SINUS RHYTHM AND HAD CONVERTED, WITH OCCASIONAL IRREGULARITY. PT C/O BACK PAIN AND NECK PAIN WHERE THE ICE HAD BEEN PLACED. HOUSE SUP NOTIFIED AND SAID THAT HER PRN IV FENTANYNL WOULD HELP. THIS WAS ADMIN BY THIS NURSE LEATHER DRIER AT 0115. PT REPORTED SOON AFTER THAT HER PAIN WAS MUCH BETTER AND NO LONGER HAD NAUSEA. SHE REMAINS ON TELEMETRY AND HOOKED UP TO EKG IN ROOM. HER PULSE HAS BEEN IN THE 70'S. AT 0100 HER DAUGHTER WAS NOTIFIED OF CONDITION AT PT'S REQUEST. PT IS NOW ASLEEP, WILL CONTINUE TO MONITOR CLOSELY.
[2019-05-28] MEDS: NS IV 1000 ML 1,000 ML IV SCH ×4 (02:44→23:32)
[2019-05-28 04:00] VITALS: BP 143/79
[2019-05-28 06:17] LABS: BASOPHILS % (AUTO) 0 % (0-10); EOSINOPHILS % (AUTO) 0 % (0-10); HEMATOCRIT 33 % (35-52); HEMOGLOBIN 10.5 G/DL (11.5-16.0); LYMPHOCYTES # (AUTO) 1.3 X 10^3 (1.0-4.0); LYMPHOCYTES % (AUTO) 5 % (12-44); MEAN CORPUSCULAR HEMOGLOBIN 30 PG (25-34); MEAN CORPUSCULAR HGB CONC 32 G/DL (32-36); MEAN CORPUSCULAR VOLUME 95 FL (80-99); MEAN PLATELET VOLUME 11.6 FL (7.4-10.4); MONOCYTES # (AUTO) 1.8 X 10^3 (0.0-1.0); MONOCYTES % (AUTO) 6 % (0-12); NEUTROPHILS # (AUTO) 25.8 X 10^3 (1.8-7.8); NEUTROPHILS % (AUTO) 89 % (42-75); PLATELET COUNT 232 10^3/uL (130-400); RED CELL DISTRIBUTION WIDTH 13.8 % (10.0-14.5); WHITE BLOOD COUNT 28.9 10^3/uL (4.3-11.0)
[2019-05-28 06:42] LABS: BILIRUBIN,TOTAL 0.8 MG/DL (0.1-1.0); CALCIUM 8.2 MG/DL (8.5-10.1); CREATININE SERUM 1.4 MG/DL (0.60-1.30); POTASSIUM 4.4 MMOL/L (3.6-5.0); TOTAL PROTEIN 5.2 GM/DL (6.4-8.2)
[2019-05-28 08:00] VITALS: BP 174/72
--- NOTE | 2019-05-28 08:24 | Progress Note ---
Subjective Subjective Date Seen by Provider: May 28, 2019 Time Seen by Provider: 08:19 78 yo F admitted for diverticulitis- Pain improved from admission. Around midnight though she did have a run of SVT which was abated by cold/ice wash cloth to the neck and bearing down. Tele was started and she was in sinus tachycardia. Pulse return to her normal 80s and she was also given 5mg metoprolol IV as her blood pressure had been elevated. She has not taken her po medications for about 1 week and she declined them last night. Review of Systems General: No Chills, No Night Sweats HEENT: No Head Aches, No Visual Changes Pulmonary: Dyspnea; No Cough Cardiovascular: No: Chest Pain, Palpitations Gastrointestinal: Nausea, Vomiting, Abdominal Pain Genitourinary: No Dysuria Neurological: Weakness All Other Systems Reviewed All Other Systems Reviewed: Yes Objective Exam Vital Signs Vital Signs Date Time Temp Pulse Resp B/P (MAP) Pulse Ox O2 Delivery O2 Flow Rate FiO2 05/28/19 07:00 85 05/28/19 04:00 37.3 82 22 143/79 (100) 93 Room Air 05/28/19 01:00 105 05/28/19 00:47 101 05/28/19 00:00 37.4 183 28 108/71 (83) 97 Room Air 05/27/19 20:00 Room Air 05/27/19 19:02 37.0 79 18 134/63 (86) 95 Room Air 05/27/19 15:10 37.2 90 20 137/63 96 Room Air 05/27/19 15:10 Room Air 05/27/19 15:00 38.4 86 15 163/72 (93) 93 Room Air 05/27/19 11:13 37.5 75 15 151/65 (93) 92 Room Air I & O 05/28/19 07:00 Intake Total 2110 ml Output Total 300 ml Balance 1810 ml General Appearance: Mild Distress, Obese HEENT: PERRL/EOMI Neck: Normal Inspection, Non Tender, Supple Respiratory: Chest Non Tender, Lungs Clear, Normal Breath Sounds, No Accessory Muscle Use Cardiovascular: Regular Rate, Rhythm Gastrointestinal: Soft, Distended, Guarding, Tenderness (lower abdomen) Rectal: Deferred Extremity: Non Tender, Pedal Edema Neurologic/Psychiatric: Alert, Oriented x3, Normal Mood/Affect Skin: Normal Color, Warm/Dry Lymphatic: No Adenopathy Results Lab Laboratory Tests 05/27/19 11:30: White Blood Count 22.7H, Red Blood Count 3.84L, Hemoglobin 11.7, Hematocrit 36, Mean Corpuscular Volume 94, Mean Corpuscular Hemoglobin 30, Mean Corpuscular Hemoglobin Concent 33, Red Cell Distribution Width 13.8, Platelet Count 298, Mean Platelet Volume 10.8H, Neutrophils (%) (Auto) 85H, Lymphocytes (%) (Auto) 10L, Monocytes (%) (Auto) 4, Eosinophils (%) (Auto) 0, Basophils (%) (Auto) 0, Neutrophils # (Auto) 19.3H, Lymphocytes # (Auto) 2.4, Monocytes # (Auto) 0.9, Eosinophils # (Auto) 0.0, Basophils # (Auto) 0.0, Neutrophils % (Manual) 85, Lymphocytes % (Manual) 12, Monocytes % (Manual) 3, Eosinophils % (Manual) 0, Basophils % (Manual) 0, Band Neutrophils 0, Blood Morphology Comment NORMAL, Erythrocyte Sedimentation Rate 32H, Prothrombin Time 16.3H, INR Comment 1.3, Activated Partial Thromboplast Time 27, Sodium Level 138, Potassium Level 3.6, Chloride Level 103, Carbon Dioxide Level 23, Anion Gap 12, Blood Urea Nitrogen 32H, Creatinine 1.44H, Estimat Glomerular Filtration Rate 35, BUN/Creatinine Ratio 22, Glucose Level 153H, Calcium Level 9.4, Corrected Calcium 9.6, Total Bilirubin 0.9, Aspartate Amino Transf (AST/SGOT) 13, Alanine Aminotransferase (ALT/SGPT) 16, Alkaline Phosphatase 131, C-Reactive Protein High Sensitivity 11.76H, Total Protein 7.2, Albumin 3.8, Amylase Level 15L, Lipase 7L 05/27/19 12:50: Urine Color YELLOW, Urine Clarity CLEAR, Urine pH 5, Urine Specific [place] 1.020, Urine Protein 3+H, Urine Glucose (UA) NEGATIVE, Urine Ketones 1+H, Urine Nitrite POSITIVEH, Urine Bilirubin NEGATIVE, Urine Urobilinogen 1, Urine Leukocyte Esterase 1+H, Urine RBC (Auto) NEGATIVE, Urine RBC NONE, Urine WBC 2- 5, Urine Squamous Epithelial Cells NONE, Urine Crystals NONE, Urine Bacteria LARGEH, Urine Casts NONE, Urine Mucus NEGATIVE, Urine Culture Indicated YES 05/27/19 12:55: Lactic Acid Level 1.46 05/28/19 05:38: White Blood Count 28.9H, Red Blood Count 3.45L, Hemoglobin 10.5L, Hematocrit 33L , Mean Corpuscular Volume 95, Mean Corpuscular Hemoglobin 30, Mean Corpuscular Hemoglobin Concent 32, Red Cell Distribution Width 13.8, Platelet Count 232, Mean Platelet Volume 11.6H, Neutrophils (%) (Auto) 89H, Lymphocytes (%) (Auto) 5L, Monocytes (%) (Auto) 6, Eosinophils (%) (Auto) 0, Basophils (%) (Auto) 0, Neutrophils # (Auto) 25.8H, Lymphocytes # (Auto) 1.3, Monocytes # (Auto) 1.8H, Eosinophils # (Auto) 0.0, Basophils # (Auto) 0.0, Sodium Level 138, Potassium Level 4.4, Chloride Level 109H, Carbon Dioxide Level 19L, Anion Gap 10, Blood Urea Nitrogen 29H, Creatinine 1.40H, Estimat Glomerular Filtration Rate 36, BUN/Creatinine Ratio 21, Glucose Level 122H, Calcium Level 8.2L, Corrected Calcium 9.0, Total Bilirubin 0.8, Aspartate Amino Transf (AST/SGOT) 13, Alanine Aminotransferase (ALT/SGPT) 11, Alkaline Phosphatase 132, Total Protein 5.2L, Albumin 3.0L Microbiology 05/27/19 Urine Culture - Preliminary, Resulted Gram Negative Josh Assessment/Plan Assessment/Plan Admission Dx intractable abdominal pain diverticulitis urinary tract infection Assessment and Plan 05/27/19 IVF, NPO- monitor respiratory status with the IVF. Rechecking labs in the AM continue metronidazole and rocephin- checking blood cultures and urine cultures. 05/28/19- SVT overnight- resolved with noninvasive interventions. WBC still elevated. No fevers since yesterday. Cr still 1.4. Abdominal pain improved compared to admission. DVT ppx: renal dose lovenox, scds Problems: (1) Acute on chronic kidney failure Qualifiers: Assessment & Plan: fluids Avoid nephrotoxic agents. (2) Right lower quadrant abdominal pain Assessment & Plan: due to colitis, diverticulitis. (3) UTI (urinary tract infection) Qualifiers: Qualified Codes: N30.00 - Acute cystitis without hematuria (4) Diverticulitis of intestine Qualifiers: Qualified Codes: K57.20 - Diverticulitis of large intestine with perforation and abscess without bleeding (5) Vomiting Qualifiers: Qualified Codes: R11.14 - Bilious vomiting (6) Hypothyroid (7) Hypertension Admission Dx intractable abdominal pain diverticulitis urinary tract infection Clinical Quality Measures Admission Status Admission Dx intractable abdominal pain diverticulitis urinary tract infection DVT/VTE Risk/Contraindication: Risk Factor Score Per Nursin RFS Level Per Nursing on Admit: 3=High MADYSON HERMAN MD May 28, 2019 08:24
--- NOTE | 2019-05-28 08:38 | Consultation - Surgery ---
History of Present Illness History of Present Illness Patient Consulted On(fuad/time) 05/28/19 08:32 Date Seen by Provider: May 28, 2019 Time Seen by Provider: 07:15 Reason for Visit: Abdominal pain History of Present Illness Patient is doing better. Only experiences abdominal pain with palpation. Abdominal pain is now localized more on the right side of the abdomen abd is rated as an 8/10. Is able to ambulate to the bathroom. Appetite is okay. Last bowel movement was 05/27. Does complain of N/V. Denies chest pain this morning when she became tachycardic. Allergies and Home Medications Allergies Coded Allergies: Sulfa (Sulfonamide Antibiotics) (Unverified Allergy, Unknown, 05/31/19) Home Medications Amitriptyline HCl 10 Mg Tablet, 10 MG PO HS, (Reported) Aspirin 81 Mg Tablet.dr, 81 MG PO BID, (Reported) Docusate Sodium 100 Mg Capsule, 100 MG PO DAILY PRN for CONSTIPATION-1ST LINE, (Reported) Furosemide 40 Mg Tablet, 40 MG PO DAILY, (Reported) Gabapentin 100 Mg Capsule, 100 MG PO TID, (Reported) Hydrocodone/Acetaminophen 1 Each Tablet, 1 TAB PO Q4H PRN for PAIN-MODERATE, (Reported) Levothyroxine Sodium 50 Mcg Tablet, 50 MCG PO DAILY, (Reported) Lisinopril 10 Mg Tablet, 10 MG PO DAILY, (Reported) Ondansetron HCl 4 Mg Tablet, 4 MG PO TID PRN for NAUSEA/VOMITING-1ST LINE, (Reported) Oxycodone HCl 10 Mg Tablet, 10 MG PO Q12H PRN for PAIN-SEVERE, (Reported) Potassium Chloride 20 Meq Tab.er.prt, 20 MEQ PO DAILY, (Reported) Simvastatin 40 Mg Tablet, 40 MG PO HS, (Reported) Past Pwqwcvr-Krqksa-Hmwqwh Hx Patient Social History Alcohol Use: Denies Use Recreational Drug Use: No 2nd Hand Smoke Exposure: No Recent Foreign Travel: No Contact w/Someone Who Travel: No Recent Infectious Disease Expo: No Recent Hopitalizations: Yes (hip sx 04/15) Immunizations Up To Date Date of Pneumonia Vaccine: Aug 28, 2013 Surgeries History of Surgeries: Yes Surgeries: Appendectomy, Hysterectomy, Orthopedic Respiratory History of Respiratory Disorde: No Cardiovascular History of Cardiac Disorders: Yes Cardiac Disorders: Hypertension Neurological History of Neurological Disord: No Genitourinary History of Genitourinary Disor: No Gastrointestinal History of Gastrointestinal Di: No Musculoskeletal History of Musculoskeletal Dis: No Endocrine History of Endocrine Disorders: No Cancer History of Cancer: No Psychosocial History of Psychiatric Problem: No Integumentary History of Skin or Integumenta: No Blood Transfusions History of Blood Disorders: No Review of Systems-General Constitutional: No chills, No fever Respiratory: No cough, No short of breath Cardiovascular: No chest pain, No palpitations, No syncope Gastrointestinal: abdominal pain (RLQ, RUQ with palpation), nausea, vomiting Genitourinary: no symptoms reported Musculoskeletal: no symptoms reported Psychiatric/Neurological: No Symptoms Reported Physical Exam-General Problems Physical Exam Vital Signs Vital Signs - First Documented 05/27/19 11:13 Temp 37.5 Pulse 75 Resp 15 B/P (MAP) 151/65 (93) Pulse Ox 92 O2 Delivery Room Air Capillary Refill : Less Than 3 Seconds General Appearance: WD/WN, mild distress Respiratory: chest non-tender, lungs clear, normal breath sounds, no respiratory distress, no accessory muscle use Cardiovascular: regular rate, rhythm, no edema, no gallop, no JVD, no murmur Gastrointestinal: normal bowel sounds, no organomegaly, no pulsatile mass, distended, tenderness (RUQ, RLQ) Extremities: normal range of motion, normal inspection Skin: normal color, warm/dry Data Review Labs Laboratory Tests 05/27/19 11:30: White Blood Count 22.7H, Red Blood Count 3.84L, Hemoglobin 11.7, Hematocrit 36, Mean Corpuscular Volume 94, Mean Corpuscular Hemoglobin 30, Mean Corpuscular He moglobin Concent 33, Red Cell Distribution Width 13.8, Platelet Count 298, Mean Platelet Volume 10.8H, Neutrophils (%) (Auto) 85H, Lymphocytes (%) (Auto) 10L, Monocytes (%) (Auto) 4, Eosinophils (%) (Auto) 0, Basophils (%) (Auto) 0, Neutrophils # (Auto) 19.3H, Lymphocytes # (Auto) 2.4, Monocytes # (Auto) 0.9, Eosinophils # (Auto) 0.0, Basophils # (Auto) 0.0, Neutrophils % (Manual) 85, Lymphocytes % (Manual) 12, Monocytes % (Manual) 3, Eosinophils % (Manual) 0, Basophils % (Manual) 0, Band Neutrophils 0, Blood Morphology Comment NORMAL, Rajesh throcyte Sedimentation Rate 32H, Prothrombin Time 16.3H, INR Comment 1.3, Activated Partial Thromboplast Time 27, Sodium Level 138, Potassium Level 3.6, Chloride Level 103, Carbon Dioxide Level 23, Anion Gap 12, Blood Urea Nitrogen 32H, Creatinine 1.44H, Estimat Glomerular Filtration Rate 35, BUN/Creatinine Ra eddie 22, Glucose Level 153H, Calcium Level 9.4, Corrected Calcium 9.6, Total Bilirubin 0.9, Aspartate Amino Transf (AST/SGOT) 13, Alanine Aminotransferase (ALT/SGPT) 16, Alkaline Phosphatase 131, C-Reactive Protein High Sensitivity 11.76H, Total Protein 7.2, Albumin 3.8, Amylase Level 15L, Lipase 7L 05/27/19 12:50: Urine Color YELLOW, Urine Clarity CLEAR, Urine pH 5, Urine Specific [place] 1.020, Urine Protein 3+H, Urine Glucose (UA) NEGATIVE, Urine Ketones 1+H, Urine Nitrite POSITIVEH, Urine Bilirubin NEGATIVE, Urine Urobilinogen 1, Urine Leukocyte Esterase 1+H, Urine RBC (Auto) NEGATIVE, Urine RBC NONE, Urine WBC 2- 5, Urine Squamous Epithelial Cells NONE, Urine Crystals NONE, Urine Bacteria LARGEH, Urine Casts NONE, Urine Mucus NEGATIVE, Urine Culture Indicated YES 05/27/19 12:55: Lactic Acid Level 1.46 05/28/19 05:38: White Blood Count 28.9H, Red Blood Count 3.45L, Hemoglobin 10.5L, Hematocrit 33L , Mean Corpuscular Volume 95, Mean Corpuscular Hemoglobin 30, Mean Corpuscular Hemoglobin Concent 32, Red Cell Distribution Width 13.8, Platelet Count 232, Mean Platelet Volume 11.6H, Neutrophils (%) (Auto) 89H, Lymphocytes (%) (Auto) 5L, Monocytes (%) (Auto) 6, Eosinophils (%) (Auto) 0, Basophils (%) (Auto) 0, Neutrophils # (Auto) 25.8H, Lymphocytes # (Auto) 1.3, Monocytes # (Auto) 1.8H, Eosinophils # (Auto) 0.0, Basophils # (Auto) 0.0, Sodium Level 138, Potassium Level 4.4, Chloride Level 109H, Carbon Dioxide Level 19L, Anion Gap 10, Blood Urea Nitrogen 29H, Creatinine 1.40H, Estimat Glomerular Filtration Rate 36, BUN/Creatinine Ratio 21, Glucose Level 122H, Calcium Level 8.2L, Corrected Calcium 9.0, Total Bilirubin 0.8, Aspartate Amino Transf (AST/SGOT) 13, Alanine Aminotransferase (ALT/SGPT) 11, Alkaline Phosphatase 132, Total Protein 5.2L, Albumin 3.0L Microbiology 05/27/19 Urine Culture - Preliminary, Resulted Gram Negative Josh Assessment/Plan Assessment/Plan Assessment/Plan 05/27/19 IVF, NPO- monitor respiratory status with the IVF. Rechecking labs in the AM continue metronidazole and rocephin- checking blood cultures and urine cultures. 05/28/19- SVT overnight- resolved. WBC still elevated. No fevers since yesterday. Cr still 1.4. DVT ppx: renal dose lovenox, scds Clinical Quality Measures DVT/VTE Risk/Contraindication: Risk Factor Score Per Nursin RFS Level Per Nursing on Admit: 3=High MORENITA HERNANDEZ MED STUDEN May 28, 2019 08:38
[2019-05-28] MEDS: KCL 20 MEQ TAB (K-DUR) PO SCH (09:42)
[2019-05-28] MEDS: lisINopril 10 MG (PRINIVIL) TABLET PO SCH (09:42)
[2019-05-28] MEDS: ASPIRIN E.C. 81 MG (ECOTRIN) TAB PO SCH ×2 (09:43→20:04)
[2019-05-28] MEDS: GABAPENTIN 100 MG (NEURONTIN) CAP PO SCH ×3 (09:43→20:04)
[2019-05-28] MEDS: LEVOTHYROXINE 50 MCG (LEVOTHROID) TAB PO SCH (09:44)
--- NOTE | 2019-05-28 10:06 | Physical Therapy Evaluation ---
PT Evaluation-General Medical Diagnosis Admission Date May 27, 2019 at 15:22 Medical Diagnosis: diverticulitis/N/V/abdominal pain Onset Date: May 27, 2019 Therapy Diagnosis Therapy Diagnosis: debility/weakness Height/Weight Height (Feet): 5 Height (Inches): 2.00 Weight (Pounds): 200 Weight (Ounces): 0.0 Precautions Precautions/Isolations: Fall Prevention, Standard Precautions Weight Bear Status Right Lower Extremity: Right Full Weight Bearing Left Lower Extremity: Left Full Weight Bearing Referral Physician: Rico Reason for Referral: Evaluation/Treatment Medical History Pertinent Medical History: HTN Additional Medical History right THR 04/09/19 Current History EMS secondary to abdominal pain Reviewed History: Yes Social History Home: Single Level Current Living Status: Children Entry Into Home: Level Entry Prior/Core FIM Prior Level of Function Therapy Code Descriptions/Definitions Functional [place] Measure: 0=Not Assessed/NA 4=Minimal Assistance 1=Total Assistance 5=Supervision or Setup 2=Maximal Assistance 6=Modified [place] 3=Moderate Assistance 7=Complete [place] Therapy Quality Codes: 6 Independent with activity with or without an assistive device 5 Patient requires set up or clean up by helper. Patient completes activity by themselves 4 Supervision or touching assist (CGA). [place] provide cues , steadying assist 3 The helper provides less than half the effort to complete the activity 2 The helper provides more than half the effort to complete the activity 1 Dependent. The helper does all the effort to complete an activity 7 Patient refused to complete or attempt activity 9 The patient did not perform the activity before the current illness or injury 88 Not attempted due to Medical conditions or safety concerns Functional Abilities and Goals: Independent: Patient completed the activities by him/herself, with or without an assistive device, with no assistance from a helper. Needed Some Help: Patient needed partial assistance from another person to complete activities. Dependent: A helper completed the activities for the patient. Unknown: Not Applicable: Bed Mobility: 6 Transfers (B,C,W/C) (FIM): 6 Gait: 6 Indoor Mobility (Ambulation): Independent Prior Devices Use: Walker per daughter, patient is inactive at home PLOF PT Evaluation-Current Subjective Patient agrees to PT. Continues to c/o nausea Pain Numeric Pain Scale: 0-No Pain Location: No Pain Reported Objective Patient Orientation: Normal For Age Problem Solving: Fair Attachments: IV ROM/Strength ROM Lower Extremities bilateral LE WFL (right THR) Strength Lower Extremities 4/5 grossly bilateral LE Integumentary/Posture Integumentary refer to nursing notes Bowel Incontinence: No Bladder Incontinence: No Posture trunk flexed posture in stand with FWW use Neuromuscular (Tone, Coordination, Reflexes) grossly intact Sensory Vision: Functional Hearing: Functional Sensation Right Lower Extremit: Intact Sensation Left Lower Extremity: Intact Transfers Therapy Code Descriptions/Definitions Functional [place] Measure: 0=Not Assessed/NA 4=Minimal Assistance 1=Total Assistance 5=Supervision or Setup 2=Maximal Assistance 6=Modified [place] 3=Moderate Assistance 7=Complete [place] Transfers (B, C, W/C) (FIM): 5 Scootin Supine to/from Sit: 5 Sit to/from Stand: 5 Gait Mode of Locomotion: Walk Anticipated Mode of Locomotion: Walk Gait (FIM): 5 Distance (FIM): 3=150 ft Distance: 200' Gait Level of Assist: 5 Gait Assistive Device: FWW Comments/Gait Description patient initially leans forearms on FWW to ambulate, however, after education on importance of posture with ambulation, patient corrected Balance Sitting Static: Normal Sitting Dynamic: Normal Standing Static: Normal Standing Dynamic: Normal Assessment/Needs 78 y.o. female, will be seen short term by skilled PT to address functional strength and mobility to return to home with family and home health at maximum LOF. Per family, patient is inactive PLOF, however, able to perform gross motor skills modified independently. Rehab Potential: Fair PT Fpc Goals Refrigeration Technician Goals PT Fpc Goals Time Frame: Jun 08, 2019 Transfers (B,C,W/C) (FIM): 6 Gait (FIM): 6 Gait distance (FIM): 3=150 ft Distance: 250' Gait Level of Assist: 6 Gait Assistive Device: FWW Stairs (FIM): 2 # of Steps: 4 Stairs Level Of Assist: 5 PT Plan Problem List Problem List: Activity Tolerance, Functional Strength Treatment/Plan Treatment Plan: Continue Plan of Care Treatment Plan: Bed Mobility, Education, Functional Activity [place], Functional Strength, Gait, Safety, Therapeutic Exercise, Transfers Treatment Duration: Jun 08, 2019 Estimated Hrs Per Day: .25 hour per day Patient and/or Family Agrees t: Yes Time/GCodes Time In: 840 Time Out: 900 Total Billed Treatment Time: 20 Total Billed Treatment 1 visit EVMod 20 min RYLAND APONTE PT May 28, 2019 10:06
[2019-05-28 12:00] VITALS: BP 150/74
[2019-05-28] MEDS: cefTRIAXone 1,000 MG/SWFI 10 ML IV PUSH IV SCH ×2 (13:19)
--- NOTE | 2019-05-28 15:51 | Progress Note - Surgery ---
Subjective Date Seen by a Provider: May 28, 2019 Time Seen by a Provider: 15:48 Subjective/Events-last exam Patient abdomen feeling better today. Pain not at intense. Had a bm, no blood. NPO Had svt last night, which resolved. On Ceftriaxone/flagyl. Wbc increased. Focused Exam Lactate Level 05/27/19 12:55: Lactic Acid Level 1.46 Objective Exam Vital Signs Date Time Temp Pulse Resp B/P (MAP) Pulse Ox O2 Delivery O2 Flow Rate FiO2 05/28/19 12:13 85 05/28/19 12:00 36.9 74 24 150/74 (99) 96 Room Air 05/28/19 08:00 37.4 85 20 174/72 (106) 93 Room Air 05/28/19 08:00 Room Air 05/28/19 07:00 85 05/28/19 04:00 37.3 82 22 143/79 (100) 93 Room Air 05/28/19 01:00 105 05/28/19 00:47 101 05/28/19 00:00 37.4 183 28 108/71 (83) 97 Room Air 05/27/19 20:00 Room Air 05/27/19 19:02 37.0 79 18 134/63 (86) 95 Room Air I & O 05/28/19 07:00 Intake Total 2110 ml Output Total 300 ml Balance 1810 ml Capillary Refill : Less Than 3 Seconds General Appearance: No Apparent Distress HEENT: PERRL/EOMI Neck: Normal Inspection, Non Tender, Supple Respiratory: Chest Non Tender, Normal Breath Sounds, No Accessory Muscle Use Cardiovascular: Regular Rate, Rhythm Gastrointestinal: tenderness ( b/l lower quadrants, less tender today) Extremity: Non Tender, Pedal Edema Neurologic/Psychiatric: Alert, Oriented x3, Normal Mood/Affect Skin: Normal Color, Warm/Dry Lymphatic: No Adenopathy Results Lab Laboratory Tests 05/28/19 05:38: White Blood Count 28.9H, Red Blood Count 3.45L, Hemoglobin 10.5L, Hematocrit 33L , Mean Corpuscular Volume 95, Mean Corpuscular Hemoglobin 30, Mean Corpuscular Hemoglobin Concent 32, Red Cell Distribution Width 13.8, Platelet Count 232, Mean Platelet Volume 11.6H, Neutrophils (%) (Auto) 89H, Lymphocytes (%) (Auto) 5L, Monocytes (%) (Auto) 6, Eosinophils (%) (Auto) 0, Basophils (%) (Auto) 0, Neutrophils # (Auto) 25.8H, Lymphocytes # (Auto) 1.3, Monocytes # (Auto) 1.8H, Eosinophils # (Auto) 0.0, Basophils # (Auto) 0.0, Sodium Level 138, Potassium Level 4.4, Chloride Level 109H, Carbon Dioxide Level 19L, Anion Gap 10, Blood Urea Nitrogen 29H, Creatinine 1.40H, Estimat Glomerular Filtration Rate 36, BUN/Creatinine Ratio 21, Glucose Level 122H, Calcium Level 8.2L, Corrected Calcium 9.0, Total Bilirubin 0.8, Aspartate Amino Transf (AST/SGOT) 13, Alanine Aminotransferase (ALT/SGPT) 11, Alkaline Phosphatase 132, Total Protein 5.2L, Albumin 3.0L Microbiology 05/27/19 Blood Culture - Preliminary, Resulted No growth 05/27/19 Urine Culture - Preliminary, Resulted Gram Negative Josh Assessment/Plan Assessment/Plan Assessment/Plan Diverticulitis, sigmoid Colitis of ascending colon and cecum Generalized abdominal pain Constipation s/p right hip replacement umbilical hernia UTI leukocytosis Patient with abdominal pain and ct findings suggestive of colitis and diverticulitis. Placed on antibiotics and currently NPO. Will try conservative measures. WBC did increase but by physical exam less tender. Continue conservatively. No surgical intervention at this time. Will follow. Clinical Quality Measures DVT/VTE Risk/Contraindication: Risk Factor Score Per Nursin RFS Level Per Nursing on Admit: 3=High NAJMA MALCOLM DO May 28, 2019 15:51
[2019-05-28 16:14] VITALS: BP 150/72
[2019-05-28 19:50] VITALS: BP 169/76
[2019-05-28] MEDS: SIMvastatin 40 MG (ZOCOR) TAB PO SCH (20:04)
[2019-05-28] MEDS: AMITRIPTYLINE 10 MG (ELAVIL) TAB PO SCH (20:04)
--- NOTE | 2019-05-28 20:05 | NUR ---
this rn contacted dr. mari bahena r/t oral medications being ordered & pt being npo-this rn was informed to not give oral medications-dr. bahena will re-evaluate in the AM.
[2019-05-29 00:49] VITALS: BP 158/87
[2019-05-29 04:00] VITALS: BP 169/82
[2019-05-29] MEDS: ONDANSETRON 4 MG/2 ML (SDV) Z0FRAN IV PRN (06:13)
[2019-05-29] MEDS: metroNIDAZOLE 500MG/100ML IVPB 100 ML IV SCH ×3 (06:13→21:18)
[2019-05-29 08:00] VITALS: BP 172/85
[2019-05-29 08:15] LABS: BASOPHILS % (AUTO) 0 % (0-10); EOSINOPHILS % (AUTO) 0 % (0-10); HEMATOCRIT 30 % (35-52); HEMOGLOBIN 9.8 G/DL (11.5-16.0); LYMPHOCYTES # (AUTO) 1.1 X 10^3 (1.0-4.0); LYMPHOCYTES % (AUTO) 5 % (12-44); MEAN CORPUSCULAR HEMOGLOBIN 31 PG (25-34); MEAN CORPUSCULAR HGB CONC 33 G/DL (32-36); MEAN CORPUSCULAR VOLUME 94 FL (80-99); MEAN PLATELET VOLUME 11.4 FL (7.4-10.4); MONOCYTES # (AUTO) 1.4 X 10^3 (0.0-1.0); MONOCYTES % (AUTO) 6 % (0-12); NEUTROPHILS # (AUTO) 21.1 X 10^3 (1.8-7.8); NEUTROPHILS % (AUTO) 90 % (42-75); PLATELET COUNT 247 10^3/uL (130-400); RED CELL DISTRIBUTION WIDTH 14.1 % (10.0-14.5); WHITE BLOOD COUNT 23.6 10^3/uL (4.3-11.0)
[2019-05-29 08:33] LABS: ALBUMIN 2.9 GM/DL (3.2-4.5); CALCIUM 8.5 MG/DL (8.5-10.1); CREATININE SERUM 1.27 MG/DL (0.60-1.30); PHOSPHORUS 2.7 MG/DL (2.3-4.7); POTASSIUM 3.6 MMOL/L (3.6-5.0)
[2019-05-29] MEDS ORDERED: PROMETHAZINE INJ 25 MG/ML (PHENERGAN) AMP IVP PRN (08:45)
[2019-05-29] MEDS: NS IV 1000 ML 1,000 ML IV SCH ×2 (08:57→21:18)
[2019-05-29 09:28] LABS: BAND NEUTROPHILS 4 %; BASOPHILS % (MANUAL) 0 %; EOSINOPHILS % (MANUAL) 0 %; LYMPHOCYTES % (MANUAL) 4 %; MONOCYTES % (MANUAL) 2 %; NEUTROPHILS % (MANUAL) 90 %; RBC MORPH NORMAL; TOXIC GRANULATION/VACUOLAZATIO 1+
--- NOTE | 2019-05-29 10:23 | Physical Therapy Progress Note ---
Therapy Progress Note Patient clearly refuses therapy this morning, she says she has been vomiting this morning and would like for PT to try back this afternoon. NORIS CARUSO PT May 29, 2019 10:23
[2019-05-29] MEDS: fentaNYL INJECTION 100 MCG/2 ML AMP IV PRN (11:13)
--- NOTE | 2019-05-29 11:51 | NUR ---
RD ASSESSMENT PMHx: HTN PT INTERACTION: Pt was awake and pleasant during nutrition assessment. Pt states current appetite is very poor and has been for the past week. Pt states episodes of nausea and vomiting over this time frame as well. Pt states issues with constipation, stating last BM was "last Monday" (05/24). Note no BM has been recorded since admit. Pt states no recent wt changes. Note unable to determine recent wt hx, per chart review. ABNORMAL NUTRITION-RELATED LAB VALUES: Cl 109 (H); BUN 29 (H); cr 1.54 (H); glu 122 (H); Ca 8.2 (L); Hgb 10.5 (L); Hct 33 (L); alb 3.0 (L); Pro 5.2 (L) Est. kcal needs: 2663-6971 kcal (15-20 kcal/kg) Est. Pro needs: 77-96 g Pro (0.8-1.0 g Pro/kg) PES STATEMENT: Inadequate oral intake related to nausea | vomiting as evidenced by pt interview INTERVENTION: Advance diet to clear liquids, when medically able. Monitor diet tolerance. Pt may benefit from nutrition supplementation if poor po intake continues. MONITOR/EVALUATE: Diet Advancement Diet Tolerance PO Intake Weight Status Hydration Status Lab Values Phyllis Johnson, MS, RD [phone]
[2019-05-29 12:00] VITALS: BP 172/85
--- NOTE | 2019-05-29 13:08 | Progress Note ---
Subjective Subjective Date Seen by Provider: May 29, 2019 Time Seen by Provider: 13:05 78 yo F no overnight events. she did have nausea and vomiting this AM (dark green) and 8mg zofran did not help- Compazine helped her but also made her sleepy which she appreciated. Abdominal pain still present- not much better today. She would like a sleeping pill tonight. Review of Systems General: No Chills, No Night Sweats HEENT: No Head Aches, No Visual Changes Pulmonary: No Dyspnea, No Cough Cardiovascular: No: Chest Pain, Palpitations Gastrointestinal: Nausea, Vomiting, Abdominal Pain Genitourinary: No Dysuria Neurological: Weakness All Other Systems Reviewed All Other Systems Reviewed: Yes Objective Exam Vital Signs Vital Signs Date Time Temp Pulse Resp B/P (MAP) Pulse Ox O2 Delivery O2 Flow Rate FiO2 05/29/19 12:00 36.5 80 24 172/85 (114) 97 Room Air 05/29/19 08:00 97 Room Air 05/29/19 08:00 36.5 80 24 172/85 (114) 97 Room Air 05/29/19 07:00 83 05/29/19 04:00 36.8 84 18 169/82 (111) 98 Room Air 05/29/19 01:00 91 05/29/19 00:49 37.0 87 20 158/87 (110) 98 Room Air 05/28/19 21:00 37.0 05/28/19 20:00 Room Air 05/28/19 19:50 37.9 64 20 169/76 (107) 96 Room Air 05/28/19 19:00 90 05/28/19 16:14 37.4 96 22 150/72 (98) 95 Room Air I & O 05/29/19 07:00 Intake Total 1100 ml Output Total 850 ml Balance 250 ml General Appearance: No Apparent Distress HEENT: PERRL/EOMI Neck: Normal Inspection, Non Tender, Supple Respiratory: Chest Non Tender, Normal Breath Sounds, No Accessory Muscle Use Cardiovascular: Regular Rate, Rhythm Gastrointestinal: Soft, Distended, Guarding, Tenderness (lower abdomen) Rectal: Deferred Extremity: Non Tender, Pedal Edema Neurologic/Psychiatric: Alert, Oriented x3, Normal Mood/Affect Skin: Normal Color, Warm/Dry Lymphatic: No Adenopathy Results Lab Laboratory Tests 05/29/19 08:02: White Blood Count 23.6H, Red Blood Count 3.20L, Hemoglobin 9.8L, Hematocrit 30L, Mean Corpuscular Volume 94, Mean Corpuscular Hemoglobin 31, Mean Corpuscular Hemoglobin Concent 33, Red Cell Distribution Width 14.1, Platelet Count 247, Mean Platelet Volume 11.4H, Neutrophils (%) (Auto) 90H, Lymphocytes (%) (Auto) 5L, Monocytes (%) (Auto) 6, Eosinophils (%) (Auto) 0, Basophils (%) (Auto) 0, Neutrophils # (Auto) 21.1H, Lymphocytes # (Auto) 1.1, Monocytes # (Auto) 1.4H, Eosinophils # (Auto) 0.0, Basophils # (Auto) 0.0, Neutrophils % (Manual) 90, Lymphocytes % (Manual) 4, Monocytes % (Manual) 2, Eosinophils % (Manual) 0, Basophils % (Manual) 0, Band Neutrophils 4, Toxic Granulation 1+, Blood Morphology Comment NORMAL, Sodium Level 142, Potassium Level 3.6, Chloride Level 111H, Carbon Dioxide Level 18L, Anion Gap 13, Blood Urea Nitrogen 33H, Creatinine 1.27, Estimat Glomerular Filtration Rate 40, BUN/Creatinine Ratio 26, Glucose Level 117H, Calcium Level 8.5, Phosphorus Level 2.7, Albumin 2.9L Microbiology 05/27/19 Blood Culture - Preliminary, Resulted No growth 05/27/19 Urine Culture - Preliminary, Resulted Gram Negative Josh Assessment/Plan Assessment/Plan Admission Dx intractable abdominal pain diverticulitis urinary tract infection Assessment and Plan 05/27/19 IVF, NPO- monitor respiratory status with the IVF. Rechecking labs in the AM continue metronidazole and rocephin- checking blood cultures and urine cultures. 05/28/19- SVT overnight- resolved. WBC still elevated. No fevers since yesterday. Cr still 1.4. Abdominal pain improved compared to admission. 05/29/19- Cr improved to 1.27, WBC back down to 23K- will continue to trend. Temp yesterday evening was 37.9C- Still on metronidazole and ceftriaxone. Urine culture growing gram negative- awaiting antibiotic coverage. Blood cultures negative to date. -will try 5mg ambien to help her sleep tonight. -will add on metoclopramide daily to see if it will help with nausea and stimulate her GI tract to get back to functioning. DVT ppx: renal dose lovenox, scds Problems: (1) Acute on chronic kidney failure Qualifiers: Assessment & Plan: fluids Avoid nephrotoxic agents. (2) Right lower quadrant abdominal pain Assessment & Plan: due to colitis, diverticulitis. (3) UTI (urinary tract infection) Qualifiers: Qualified Codes: N30.00 - Acute cystitis without hematuria (4) Diverticulitis of intestine Qualifiers: Qualified Codes: K57.20 - Diverticulitis of large intestine with perforation and abscess without bleeding (5) Vomiting Qualifiers: Qualified Codes: R11.14 - Bilious vomiting (6) Hypothyroid (7) Hypertension Qualifiers: Qualified Codes: I10 - Essential (primary) hypertension Admission Dx intractable abdominal pain diverticulitis urinary tract infection Clinical Quality Measures Admission Status Admission Dx intractable abdominal pain diverticulitis urinary tract infection DVT/VTE Risk/Contraindication: Risk Factor Score Per Nursin RFS Level Per Nursing on Admit: 3=High MAYDSON HERMAN MD May 29, 2019 13:08
[2019-05-29] MEDS ORDERED: METOCLOPRAMIDE 5 MG (REGLAN) TAB PO SCH (13:30)
[2019-05-29] MEDS ORDERED: ZOLPIDEM 5 MG (AMBIEN) TAB PO PRN (13:30)
[2019-05-29] MEDS: cefTRIAXone 1,000 MG/SWFI 10 ML IV PUSH IV SCH ×2 (13:49)
--- NOTE | 2019-05-29 14:49 | Physical Therapy Daily Note ---
PT Daily Note-Current Subjective Patient in bed pre tx, agrees to PT with encouragement, states she has very little pain. Needs to use the restroom and does so without assist. Appearance Patient in bed post tx with nurse call, phone, tray, all needs met. Mental Status Patient Orientation: Person, Place, Situation Attachments: IV Transfers Therapy Quality Codes: 6 Independent with activity with or without an assistive device 5 Patient requires set up or clean up by helper. Patient completes activity by themselves 4 Supervision or touching assist (CGA). [place] provide cues , steadying assist 3 The helper provides less than half the effort to complete the activity 2 The helper provides more than half the effort to complete the activity 1 Dependent. The helper does all the effort to complete an activity 7 Patient refused to complete or attempt activity 9 The patient did not perform the activity before the current illness or injury 88 Not attempted due to Medical conditions or safety concerns Roll Left to Right (QC): 4 Sit to Lying (QC): 2 Sit to Stand (QC): 2 Chair/Wbu-bg-Dyere Xfer(QC): 4 Patient performs bed mobility with SBA but supine to sit and sit to supine with mod assist with both legs, CGA for transfers Weight Bearing Right Lower Extremity: Right Full Weight Bearing Left Lower Extremity: Left Full Weight Bearing Gait Training Distance: 60' Walk 10 feet (QC): 4 Walk 50 ft with 2 Turns(QC): 4 Gait Persons Needed: 1 Gait Assistive Device: FWW very slow ambulation, some SOB Treatments bed mobility and transfers, ambulation, toileting Assessment Current Status: Poor Progress some SOB, fatigue PT Retirement Goals Retirement Goals 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 Time Frame: Jun 08, 2019 Distance: 250' Gait Level of Assist: 6 Gait Assistive Device: FWW # of Steps: 4 Stairs Level Of Assist: 5 PT Plan Problem List Problem List: Activity Tolerance, Functional Strength, Safety, Balance, Gait, Transfer, Bed Mobility, ROM Treatment/Plan Treatment Plan: Continue Plan of Care Treatment Plan: Bed Mobility, Education, Functional Activity [place], Functional Strength, Gait, Safety, Therapeutic Exercise, Transfers Treatment Duration: Jun 08, 2019 Estimated Hrs Per Day: .25 hour per day Patient and/or Family Agrees t: Yes Safety Risks/Education Patient Education: Gait Training, Transfer Techniques, Correct Positioning, Safety Issues Teaching Recipient: Patient Teaching Methods: Demonstration, Discussion Response to Teaching: Reinforcement Needed Time/GCodes Time In: 1429 Time Out: 1443 Total Billed Treatment Time: 14 Total Billed Treatment 1 visit GT 14' NORIS CARUSO PT May 29, 2019 14:49
[2019-05-29] MEDS ORDERED: DIATRIZOATE MEGLUM/SODIUM 37% 120 ML (GASTROGRAFIN) PO ONE (15:30)
--- NOTE | 2019-05-29 15:40 | NUR ---
Pt is Faith. provided blessing.
[2019-05-29 16:00] VITALS: BP 151/83
--- NOTE | 2019-05-29 16:12 | Diagnostic Imaging Report ---
PROCEDURE: CT abdomen and pelvis without contrast. TECHNIQUE: Multiple contiguous axial images were obtained through the abdomen and pelvis without the use of intravenous contrast. Auto Exposure Controls were utilized during the CT exam to meet ALARA standards for radiation dose reduction. INDICATION: Abdominal pain. FINDINGS: In the interval since the previous exam of 05/27/2019 several dilated gas-filled segments of small bowel have developed in the mid abdomen. The axial images show swirling of the mesentery and vessels in the mid abdomen into the right lower quadrant. I do suspect that there is a partial bowel obstruction due to an internal hernia in the right lower quadrant. There is no mass or abscess identified. There is no new abnormality of the abdomen or pelvis noted otherwise. The lung bases are clear. IMPRESSION: In the interval since the prior exam a partial small bowel obstruction has developed due to an internal hernia in the right lower quadrant. There is no mass or abscess visualized however. These results were discussed with Dr. Tommy Santos at the time of this dictation.. CRITICAL FINDING Dictated by: Dictated on workstation # [id number]
--- NOTE | 2019-05-29 17:20 | Progress Note - Surgery ---
[facility] 05/29/19 1720: Subjective Date Seen by a Provider: May 29, 2019 Time Seen by a Provider: 07:05 Subjective/Events-last exam Patients pain slightly better but still there. Now having nausea and vomiting. White count down from 28 to 23. Has been trying to keep liquids down but they keep coming back up. Afebrile. Patient denies fevers, sweats, chills, shortness of breath, and chest pain. Review of Systems General: No Chills, No Fatigue Pulmonary: No Cough Cardiovascular: No: Chest Pain Gastrointestinal: Nausea, Vomiting, Abdominal Pain Focused Exam Lactate Level 05/27/19 12:55: Lactic Acid Level 1.46 Respiratory: Chest Non Tender, Lungs Clear, Normal Breath Sounds, No Accessory Muscle Use, No Respiratory Distress Cardiovascular: Regular Rate, Rhythm, No Edema, No Gallop, No JVD, No Murmur, Normal Peripheral Pulses Skin: normal color, warm/dry Objective Exam Vital Signs Date Time Temp Pulse Resp B/P (MAP) Pulse Ox O2 Delivery O2 Flow Rate FiO2 05/29/19 16:00 37.1 77 18 151/83 (105) 96 Room Air 05/29/19 13:00 80 05/29/19 12:00 36.5 80 24 172/85 (114) 97 Room Air 05/29/19 08:00 97 Room Air 05/29/19 08:00 36.5 80 24 172/85 (114) 97 Room Air 05/29/19 07:00 83 05/29/19 04:00 36.8 84 18 169/82 (111) 98 Room Air 05/29/19 01:00 91 05/29/19 00:49 37.0 87 20 158/87 (110) 98 Room Air 05/28/19 21:00 37.0 05/28/19 20:00 Room Air 05/28/19 19:50 37.9 64 20 169/76 (107) 96 Room Air 05/28/19 19:00 90 I & O 05/29/19 07:00 Intake Total 1100 ml Output Total 850 ml Balance 250 ml Capillary Refill : Less Than 3 SecondsLess Than 3 Seconds General Appearance: No Apparent Distress HEENT: PERRL/EOMI Neck: Normal Inspection, Non Tender, Supple Respiratory: Chest Non Tender, Normal Breath Sounds, No Accessory Muscle Use Cardiovascular: Regular Rate, Rhythm, No Edema, No Gallop, No JVD, No Murmur Gastrointestinal: soft, no organomegaly, no pulsatile mass, tenderness ( b/l lower quadrants, less tender today) Extremity: Non Tender, Pedal Edema Neurologic/Psychiatric: Alert, Oriented x3, Normal Mood/Affect Skin: Normal Color, Warm/Dry Lymphatic: No Adenopathy Results Lab Laboratory Tests 05/29/19 08:02: White Blood Count 23.6H, Red Blood Count 3.20L, Hemoglobin 9.8L, Hematocrit 30L, Mean Corpuscular Volume 94, Mean Corpuscular Hemoglobin 31, Mean Corpuscular Hemoglobin Concent 33, Red Cell Distribution Width 14.1, Platelet Count 247, Mean Platelet Volume 11.4H, Neutrophils (%) (Auto) 90H, Lymphocytes (%) (Auto) 5L, Monocytes (%) (Auto) 6, Eosinophils (%) (Auto) 0, Basophils (%) (Auto) 0, Neutrophils # (Auto) 21.1H, Lymphocytes # (Auto) 1.1, Monocytes # (Auto) 1.4H, Eosinophils # (Auto) 0.0, Basophils # (Auto) 0.0, Neutrophils % (Manual) 90, Lymphocytes % (Manual) 4, Monocytes % (Manual) 2, Eosinophils % (Manual) 0, Basophils % (Manual) 0, Band Neutrophils 4, Toxic Granulation 1+, Blood Morphology Comment NORMAL, Sodium Level 142, Potassium Level 3.6, Chloride Level 111H, Carbon Dioxide Level 18L, Anion Gap 13, Blood Urea Nitrogen 33H, Creatinine 1.27, Estimat Glomerular Filtration Rate 40, BUN/Creatinine Ratio 26, Glucose Level 117H, Calcium Level 8.5, Phosphorus Level 2.7, Albumin 2.9L Microbiology 05/27/19 Blood Culture - Preliminary, Resulted No growth 05/27/19 Urine Culture - Preliminary, Resulted Klebsiella pneumoniae Assessment/Plan Assessment/Plan Assessment/Plan 05/27/19 IVF, NPO- monitor respiratory status with the IVF. Rechecking labs in the AM continue metronidazole and rocephin- checking blood cultures and urine cultures. 05/28/19- SVT overnight- resolved. WBC still elevated. No fevers since yesterday. Cr still 1.4. Abdominal pain improved compared to admission. 05/29/19- Cr improved to 1.27, WBC back down to 23K- will continue to trend. Temp yesterday evening was 37.9C- Still on metronidazole and ceftriaxone. Urine culture growing gram negative- awaiting antibiotic coverage. Blood cultures negative to date. -will try 5mg ambien to help her sleep tonight. -will add on metoclopramide daily to see if it will help with nausea and stimulate her GI tract to get back to functioning. Get a CT scan of abdomen and pelvis with oral contrast. DVT ppx: renal dose lovenox, scds Clinical Quality Measures DVT/VTE Risk/Contraindication: Risk Factor Score Per Nursin RFS Level Per Nursing on Admit: 3=High YUNNAJMA Berkley DO 05/29/192052: Subjective Subjective/Events-last exam Nausea and some emesis. Abdominal pain lower abdomen, slightly better but still there. WBC down to 23 from 28. No flatus or bm. Ct scan abdomen/pelvis with oral contrast performed with possible internal hernia, do not agree with free air. Objective Exam General Appearance: No Apparent Distress (laying in bed) HEENT: PERRL/EOMI Neck: Normal Inspection, Non Tender Respiratory: Chest Non Tender, No Accessory Muscle Use, No Respiratory Distress Cardiovascular: Regular Rate, Rhythm Gastrointestinal: soft, tenderness ( b/l lower quadrants, but improved some from last couple days) Extremity: Non Tender Neurologic/Psychiatric: Alert, Oriented x3 Skin: Normal Color, Warm/Dry Lymphatic: No Adenopathy Assessment/Plan Assessment/Plan Assessment/Plan Diverticulitis, sigmoid Colitis of ascending colon and cecum Generalized abdominal pain now mainly lower abdomen b/l Constipation s/p right hip replacement umbilical hernia UTI leukocytosis repeated ct scan with oral contrast. ct suspicious for small bowel obstruction secondary to internal hernia she is less tender but still with out significant tenderness. ct scan also questions small amount of free air, which I reviewed with Dr. Corona and we don't feel that there is free air. Patient and daughter discussed that I don't feel that this is going to resolve on its own and will need surgical intervention. We discussed risks and benefits of diagnostic laparoscopy possible open all other indicated procedures. Patient NPO and If emesis will place NG tube and plan on surgery tomorrow which patient and daughter agree. Medically optimize. Supervisory-Addendum Brief Verification & Attestation Participated in pt care: history, MDM, physical Personally performed: exam, history, MDM, supervision of care Care discussed with: Medical Student Procedures: n/a Results interpretation: Verified all documentation Verification and Attestation of Medical Student E/M Service A medical student performed and documented this service in my presence. I reviewed and verified all information documented by the medical student and made modifications to such information, when appropriate. I personally performed the physical exam and medical decision making. Najma Santos, May 29, 2019,20:54 Verification and Attestation of Medical Student E/M Service A medical student performed and documented this service in my presence. I reviewed and verified all information documented by the medical student and made modifications to such information, when appropriate. I personally performed the physical exam and medical decision making. Najma Santos, May 29, 2019,20:53 MORENITA HERNANDEZ May 29, 2019 17:20 NAJMA SANTOS DO May 29, 2019 20:53
--- NOTE | 2019-05-29 17:41 | NUR ---
PT TO REMAIN NPO FOR SURGERY WITH DR. MALCOLM TOMORROW.
[2019-05-29 20:00] VITALS: BP 164/69
[2019-05-29] MEDS: ASPIRIN E.C. 81 MG (ECOTRIN) TAB PO SCH (20:43)
[2019-05-29] MEDS: AMITRIPTYLINE 10 MG (ELAVIL) TAB PO SCH (20:43)
[2019-05-29] MEDS: SIMvastatin 40 MG (ZOCOR) TAB PO SCH (20:44)
[2019-05-29] MEDS: GABAPENTIN 100 MG (NEURONTIN) CAP PO SCH (22:36)
[2019-05-30] VITALS (18 sets, daily range): BP systolic 70–195; BP diastolic 42–94
[2019-05-30] MEDS: NS IV 1000 ML 1,000 ML IV SCH ×3 (03:57→20:18)
[2019-05-30] MEDS: metroNIDAZOLE 500MG/100ML IVPB 100 ML IV SCH ×3 (06:28→22:59)
[2019-05-30 06:30] LABS: BASOPHILS % (AUTO) 0 % (0-10); EOSINOPHILS # (AUTO) 0.1 10^3/uL (0.0-0.3); EOSINOPHILS % (AUTO) 0 % (0-10); HEMATOCRIT 31 % (35-52); HEMOGLOBIN 9.8 G/DL (11.5-16.0); LYMPHOCYTES # (AUTO) 1.1 X 10^3 (1.0-4.0); LYMPHOCYTES % (AUTO) 5 % (12-44); MEAN CORPUSCULAR HEMOGLOBIN 30 PG (25-34); MEAN CORPUSCULAR HGB CONC 32 G/DL (32-36); MEAN CORPUSCULAR VOLUME 94 FL (80-99); MEAN PLATELET VOLUME 11.3 FL (7.4-10.4); MONOCYTES # (AUTO) 1.5 X 10^3 (0.0-1.0); MONOCYTES % (AUTO) 7 % (0-12); NEUTROPHILS # (AUTO) 18.1 X 10^3 (1.8-7.8); NEUTROPHILS % (AUTO) 87 % (42-75); PLATELET COUNT 260 10^3/uL (130-400); RED CELL DISTRIBUTION WIDTH 14.1 % (10.0-14.5); WHITE BLOOD COUNT 20.7 10^3/uL (4.3-11.0)
[2019-05-30 06:40] LABS: INR 1.3 (0.8-1.4); PROTHROMBIN TIME PATIENT 16.4 SEC (12.2-14.7)
[2019-05-30 06:46] LABS: CALCIUM 8.3 MG/DL (8.5-10.1); CREATININE SERUM 1.07 MG/DL (0.60-1.30); POTASSIUM 3.2 MMOL/L (3.6-5.0)
[2019-05-30] MEDS: lisINopril 10 MG (PRINIVIL) TABLET PO SCH (08:00)
--- NOTE | 2019-05-30 08:59 | Progress Note ---
Subjective Subjective Date Seen by Provider: May 30, 2019 Time Seen by Provider: 22:11 78 yo F patient reporting chest pain this AM- she feels like it is GERD. EKG shows sinus tachycardia. Checking troponin. Repeat CT from yesterday showed concern for partial small bowel obstruction due to internal hernia in RLQ- Dr. Santos planning on taking a look today. Review of Systems General: No Chills, No Fatigue HEENT: No Head Aches, No Visual Changes Pulmonary: No Cough Cardiovascular: No: Chest Pain Gastrointestinal: Nausea, Vomiting, Abdominal Pain Genitourinary: No Dysuria Neurological: Weakness All Other Systems Reviewed All Other Systems Reviewed: Yes Objective Exam Vital Signs Vital Signs Date Time Temp Pulse Resp B/P (MAP) Pulse Ox O2 Delivery O2 Flow Rate FiO2 05/30/19 08:00 37.1 88 24 195/82 (119) 96 Room Air 05/30/19 07:00 79 05/30/19 04:15 36.8 71 20 177/75 (109) 97 Room Air 05/30/19 01:44 73 05/30/19 00:02 37.6 56 20 164/72 (102) 98 Room Air 05/29/19 20:00 36.9 57 20 164/69 (100) 98 Room Air 05/29/19 20:00 97 Room Air 05/29/19 19:00 80 05/29/19 16:00 37.1 77 18 151/83 (105) 96 Room Air 05/29/19 13:00 80 05/29/19 12:00 36.5 80 24 172/85 (114) 97 Room Air I & O 05/30/19 07:00 Intake Total 200 ml Output Total 1050 ml Balance -850 ml General Appearance: No No Apparent Distress; Mild Distress (intubated) Neck: Normal Inspection Respiratory: Chest Non Tender, Normal Breath Sounds Cardiovascular: Irregularly Irregular, Tachycardia Gastrointestinal: Soft Rectal: Deferred Extremity: Non Tender Neurologic/Psychiatric: Other (intubated) Skin: Normal Color, Warm/Dry Lymphatic: No Adenopathy Results Lab Laboratory Tests 05/30/19 05:40: White Blood Count 20.7H, Red Blood Count 3.23L, Hemoglobin 9.8L, Hematocrit 31L, Mean Corpuscular Volume 94, Mean Corpuscular Hemoglobin 30, Mean Corpuscular Hemoglobin Concent 32, Red Cell Distribution Width 14.1, Platelet Count 260, Mean Platelet Volume 11.3H, Neutrophils (%) (Auto) 87H, Lymphocytes (%) (Auto) 5L, Monocytes (%) (Auto) 7, Eosinophils (%) (Auto) 0, Basophils (%) (Auto) 0, Neutrophils # (Auto) 18.1H, Lymphocytes # (Auto) 1.1, Monocytes # (Auto) 1.5H, Eosinophils # (Auto) 0.1, Basophils # (Auto) 0.0, Prothrombin Time 16.4H, INR Comment 1.3, Sodium Level 144, Potassium Level 3.2L, Chloride Level 116H, Carbon Dioxide Level 18L, Anion Gap 10, Blood Urea Nitrogen 33H, Creatinine 1.07, Estimat Glomerular Filtration Rate 49, BUN/Creatinine Ratio 31, Glucose Level 109H, Calcium Level 8.3L 05/30/19 08:50: Microbiology 05/27/19 Blood Culture - Preliminary, Resulted No growth 05/27/19 Urine Culture - Preliminary, Resulted Klebsiella pneumoniae Assessment/Plan Assessment/Plan Admission Dx intractable abdominal pain diverticulitis urinary tract infection Assessment and Plan 05/27/19 IVF, NPO- monitor respiratory status with the IVF. Rechecking labs in the AM continue metronidazole and rocephin- checking blood cultures and urine cultures. 05/28/19- SVT overnight- resolved. WBC still elevated. No fevers since yesterday. Cr still 1.4. Abdominal pain improved compared to admission. 05/29/19- Cr improved to 1.27, WBC back down to 23K- will continue to trend. Temp yesterday evening was 37.9C- Still on metronidazole and ceftriaxone. Urine culture growing gram negative- awaiting antibiotic coverage. Blood cultures negative to date. -will try 5mg ambien to help her sleep tonight. -will add on metoclopramide daily to see if it will help with nausea and stimulate her GI tract to get back to functioning. 05/30/19- ST with [facility]. Dr. Hills consulted- troponin initially elevated; normal on repeat- ex lap converted to open- appendix removed and colostomy placed for bowel resection due to diverticulitis perforation. DVT ppx: scds Problems: (1) Partial small bowel obstruction Assessment & Plan: RLQ with what looks to be an internal hernia on CT (2) Acute on chronic kidney failure Qualifiers: Assessment & Plan: fluids Avoid nephrotoxic agents. (3) Right lower quadrant abdominal pain Assessment & Plan: due to colitis, diverticulitis. (4) Diverticulitis of intestine Qualifiers: Qualified Codes: K57.20 - Diverticulitis of large intestine with perforation and abscess without bleeding (5) Vomiting Qualifiers: Qualified Codes: R11.14 - Bilious vomiting (6) Hypothyroid (7) Hypertension Qualifiers: Qualified Codes: I10 - Essential (primary) hypertension (8) UTI due to Klebsiella species Assessment & [facility] Dx intractable abdominal pain diverticulitis urinary tract infection Clinical Quality Measures Admission Status Admission Dx intractable abdominal pain diverticulitis urinary tract infection DVT/VTE Risk/Contraindication: Risk Factor Score Per Nursin RFS Level Per Nursing on Admit: 3=High MADYSON HERMAN MD May 30, 2019 08:59
[2019-05-30] MEDS ORDERED: NITROGLYCERIN 0.4 MG SL TABS BTL 25'S SL NR (09:00)
--- NOTE | 2019-05-30 10:00 | NUR ---
0800 BP elevated 195/82, order received from Dr. Santos at this time to give morning BP pill with small sip of water due to preop diet status (NPO with no ice chips) Lisinopril 10mg PO given at this time. 0815 Patient starts c/o of heavy, squeezing pain to mid chest and is diaphoretic, stat ekg ordered at this time results called to Dr. Gómez. Orders received from Dr. Gómez for a cardiology consult and stat troponin. Dr. Hills notified at 0844, saw patient shortly after, order for one time dose of nitroglycerin SL. Pain relieved by Nitroglycerin, Dr. Hills notified of this along with troponin results, order received to recheck troponin in 6 hours and to delay scheduled surgery until cardiac issues were resolved. Dr. Luis and Dr. Santos notified at this time.
--- NOTE | 2019-05-30 10:10 | NUR ---
ORDER RECEIVED FROM DR. MALCOLM CONCERNING AM POTASSIUM LEVEL TO ADMINISTER POTASSIUM PER PROTOCOL R/T MORNING LABS TO REPLACE BEFORE AFTERNOON SURGERY. SEE EMAR.
--- NOTE | 2019-05-30 10:11 | Physical Therapy Progress Note ---
Therapy Progress Note Patient adamantly declined PT all day. Per RN, patient has had CP and is to have procedure on this date. PT will attempt in a.m. 1 ref ([id number]) RYLAND APONTE PT May 30, 2019 10:11
--- NOTE | 2019-05-30 11:01 | NUR ---
Anointed to day by Fr Paul Barraza.
[2019-05-30] MEDS: POTASSIUM CL 10MEQ/50ML IVPB 50 ML IV SCH ×3 (11:38→22:34)
--- NOTE | 2019-05-30 12:03 | Consultation-Cardiology ---
HPI-Cardiology Cardiology Consultation Date of Consultation 05/30/19 Date of Admission Time Seen by Provider: 07:05 Indication: chest pain HPI 78 years old lady with history of hypertension, admitted with abdominal pain, nausea and vomiting, was scheduled for exploratory surgery today, has been having nausea and heartburn and started to have chest pain described it as dull achiness across the lower part of her chest in addition to upper abdominal cramps and pain. Had an EKG done which showed sinus rhythm with occasional PVCs and nonspecific T wave abnormality Home Medications & Allergies Allergies: Uncoded Allergies: SULFA (Allergy, Unknown, 05/27/19) Home Medication List Reviewed: Yes [id number] Hx Patient Social History Alcohol Use: Denies Use Recreational Drug Use: No Smoking Status: Never a Smoker 2nd Hand Smoke Exposure: No Recent Foreign Travel: No Recent Infectious Disease Expo: No Recent Hopitalizations: Yes (hip sx 04/15) Immunizations Up To Date Date of Pneumonia Vaccine: Aug 28, 2013 Past Medical History Discussed below Family Medical History Significant Family History: No Pertinent Family Hx Family Medical Hx Noncontributory Review of Systems-General Review of Systems Constitutional: see HPI, fever EENTM: no symptoms reported Respiratory: see HPI Cardiovascular: see HPI, chest pain Gastrointestinal: see HPI, abdominal pain (Generalized, diffuse), constipation; No diarrhea, No hematemesis, No melena; nausea, vomiting Genitourinary: no symptoms reported Musculoskeletal: no symptoms reported Skin: no symptoms reported Psychiatric/Neurological: No Symptoms Reported All Other Systems Reviewed Negative Unless Noted: Yes Reviewed Test Results Reviewed Test Results Lab Laboratory Tests Test 05/30/19 05:40 05/30/19 08:50 Range/Units White Blood Count 20.7 H 4.3-11.0 10^3/uL Red Blood Count 3.23 L 4.35-5.85 10^6/uL Hemoglobin 9.8 L 11.5-16.0 G/DL Hematocrit 31 L 35-52 % Mean Corpuscular Volume 94 80-99 FL Mean Corpuscular Hemoglobin 30 25-34 PG Mean Corpuscular Hemoglobin Concent 32 32-36 G/DL Red Cell Distribution Width 14.1 10.0-14.5 % Platelet Count 260 130-400 10^3/uL Mean Platelet Volume 11.3 H 7.4-10.4 FL Neutrophils (%) (Auto) 87 H 42-75 % Lymphocytes (%) (Auto) 5 L 12-44 % Monocytes (%) (Auto) 7 0-12 % Eosinophils (%) (Auto) 0 0-10 % Basophils (%) (Auto) 0 0-10 % Neutrophils # (Auto) 18.1 H 1.8-7.8 X 10^3 Lymphocytes # (Auto) 1.1 1.0-4.0 X 10^3 Monocytes # (Auto) 1.5 H 0.0-1.0 X 10^3 Eosinophils # (Auto) 0.1 0.0-0.3 10^3/uL Basophils # (Auto) 0.0 0.0-0.1 10^3/uL Prothrombin Time 16.4 H 12.2-14.7 SEC INR Comment 1.3 0.8-1.4 Sodium Level 144 135-145 MMOL/L Potassium Level 3.2 L 3.6-5.0 MMOL/L Chloride Level 116 H 98-107 MMOL/L Carbon Dioxide Level 18 L 21-32 MMOL/L Anion Gap 10 5-14 MMOL/L Blood Urea Nitrogen 33 H 7-18 MG/DL Creatinine 1.07 0.60-1.30 MG/DL Estimat Glomerular Filtration Rate 49 BUN/Creatinine Ratio 31 Glucose Level 109 H 70-105 MG/DL Calcium Level 8.3 L 8.5-10.1 MG/DL Troponin I 0.029 H <0.028 NG/ML Physical Exam Physical Exam Vital Signs Vital Signs - First Documented 05/27/19 11:13 Temp 37.5 Pulse 75 Resp 15 B/P (MAP) 151/65 (93) Pulse Ox 92 O2 Delivery Room Air Capillary Refill : Less Than 3 SecondsLess Than 3 Seconds Height, Weight, BMI Height: 5'2.00" Weight: 200lbs. 0.0oz. [id number]; 38.69 BMI Method: General Appearance: No Apparent Distress HEENT: PERRL/EOMI Neck: Normal Inspection, Non Tender Respiratory: Chest Non Tender, No Accessory Muscle Use, No Respiratory Distress Cardiovascular: Regular Rate, Rhythm Gastrointestinal: Soft, Distended, Guarding, Tenderness (lower abdomen) Rectal: Deferred Extremity: Non Tender Neurologic/Psychiatric: Alert, Oriented x3 Skin: Normal Color, Warm/Dry Lymphatic: No Adenopathy A/P-Cardiology Admission Diagnosis Chest pain Abdominal pain Diverticulitis Hypertension Assessment/Plan Chest pain nonspecific etiology, atypical in presentation, slight elevation in troponin, responded to nitroglycerin. Currently no active chest pain. We'll continue monitoring Abdominal pain, diverticulitis, having leukocytosis, managed by Dr. Santos Nausea and vomiting secondary to above Hypertension, continue to monitor blood pressure Preoperative cardiac evaluation for exploratory surgery. Patient is considered at high risk for perioperative cardiac vascular complication due to the active pain and slight elevation in troponin. Continue to monitor troponin. Clinical Quality Measures DVT/VTE Risk/Contraindication: Risk Factor Score Per Nursin RFS Level Per Nursing on Admit: 3=High HAL DOUGLAS MD May 30, 2019 12:03
--- NOTE | 2019-05-30 13:00 | NUR ---
THIS RN INFORMED BY DR. MALCOLM THAT HE SPOKE WITH DR. DOUGLAS CONCERNING DELAYING SURGERY, IT WAS DECIDED TO GO FORWARD WITH SURGERY AFTER THE REPEAT TROPONIN RESULTS WERE RESULTED IF NO CONCERN.
[2019-05-30] MEDS: cefTRIAXone 1,000 MG/SWFI 10 ML IV PUSH IV SCH ×2 (14:00)
[2019-05-30] MEDS: KCL 20 MEQ TAB (K-DUR) PO SCH ×2 (14:09→14:18)
[2019-05-30] MEDS: ASPIRIN E.C. 81 MG (ECOTRIN) TAB PO SCH ×2 (14:10→22:29)
[2019-05-30] MEDS: LEVOTHYROXINE 50 MCG (LEVOTHROID) TAB PO SCH ×2 (14:10→14:19)
[2019-05-30] MEDS: GABAPENTIN 100 MG (NEURONTIN) CAP PO SCH ×3 (14:11→22:29)
--- NOTE | 2019-05-30 15:20 | NUR ---
DR. MALCOLM NOTIFIED OF NORMAL TROPONIN RESULTS.
[2019-05-30] MEDS ORDERED: LIDOCAINE PF 2% 5 ML (XYLOCAINE) VIAL ONE (15:35)
[2019-05-30] MEDS ORDERED: DEXAMETHASONE 10 MG/ML (DECADRON) 1 ML VIAL ONE (15:35)
[2019-05-30] MEDS ORDERED: ETOMIDATE IV SOLN 20 MG/10 ML VIAL ONE (15:35)
[2019-05-30] MEDS ORDERED: fentaNYL INJECTION 100 MCG/2 ML AMP ONE ×2 (15:35→17:13)
[2019-05-30] MEDS ORDERED: ONDANSETRON 4 MG/2 ML (SDV) Z0FRAN ONE (15:35)
[2019-05-30] MEDS ORDERED: SEVOFLURANE (ULTANE) 15 ML INHAL SOLN ONE ×8 (15:35→19:04)
[2019-05-30] MEDS ORDERED: ROCURONIUM 10 MG/ML 5 ML SYRINGE IV ONE (15:35)
[2019-05-30] MEDS ORDERED: BUP/EPI 0.25% 1:200,000 (MARCAINE) 10 ML VIAL IJ ONE (15:50)
--- NOTE | 2019-05-30 15:58 | Progress Note - Surgery ---
Subjective Date Seen by a Provider: May 30, 2019 Time Seen by a Provider: 15:50 Subjective/Events-last exam Patient with worsening abdominal pain. Was having chest pain and had increase in troponin and consulted with cardiology. Repeated troponin level was normal. Her chest pain has resolved she states. Overall just does not feel well. Nausea no emesis. Objective Exam Vital Signs Date Time Temp Pulse Resp B/P (MAP) Pulse Ox O2 Delivery O2 Flow Rate FiO2 05/30/19 14:20 36.6 88 18 182/82 (115) 96 05/30/19 13:00 77 05/30/19 12:00 36.1 77 18 180/79 (112) 97 Room Air 05/30/19 09:30 37.2 86 18 168/88 (114) 97 Room Air 05/30/19 08:00 37.1 88 24 195/82 (119) 96 Room Air 05/30/19 07:00 79 05/30/19 04:15 36.8 71 20 177/75 (109) 97 Room Air 05/30/19 01:44 73 05/30/19 00:02 37.6 56 20 164/72 (102) 98 Room Air 05/29/19 20:00 36.9 57 20 164/69 (100) 98 Room Air 05/29/19 20:00 97 Room Air 05/29/19 19:00 80 05/29/19 16:00 37.1 77 18 151/83 (105) 96 Room Air I & O 05/30/19 07:00 Intake Total 200 ml Output Total 1050 ml Balance -850 ml Capillary Refill : Less Than 3 SecondsLess Than 3 Seconds General Appearance: No Apparent Distress HEENT: PERRL/EOMI Neck: Normal Inspection, Non Tender Respiratory: Chest Non Tender, No Accessory Muscle Use, No Respiratory Distress Cardiovascular: Regular Rate, Rhythm Gastrointestinal: soft, tenderness (more severe right lower quadrant with some guarding) Extremity: Non Tender Neurologic/Psychiatric: Alert, Oriented x3 Skin: Normal Color, Warm/Dry Lymphatic: No Adenopathy Results Lab Laboratory Tests 05/30/19 05:40: White Blood Count 20.7H, Red Blood Count 3.23L, Hemoglobin 9.8L, Hematocrit 31L, Mean Corpuscular Volume 94, Mean Corpuscular Hemoglobin 30, Mean Corpuscular Hemoglobin Concent 32, Red Cell Distribution Width 14.1, Platelet Count 260, Mean Platelet Volume 11.3H, Neutrophils (%) (Auto) 87H, Lymphocytes (%) (Auto) 5L, Monocytes (%) (Auto) 7, Eosinophils (%) (Auto) 0, Basophils (%) (Auto) 0, Neutrophils # (Auto) 18.1H, Lymphocytes # (Auto) 1.1, Monocytes # (Auto) 1.5H, Eosinophils # (Auto) 0.1, Basophils # (Auto) 0.0, Prothrombin Time 16.4H, INR Comment 1.3, Sodium Level 144, Potassium Level 3.2L, Chloride Level 116H, Carbon Dioxide Level 18L, Anion Gap 10, Blood Urea Nitrogen 33H, Creatinine 1.07, Estimat Glomerular Filtration Rate 49, BUN/Creatinine Ratio 31, Glucose Level 109H, Calcium Level 8.3L 05/30/19 08:50: Troponin I 0.029H 05/30/19 14:50: Troponin I < 0.028 Microbiology 05/27/19 Blood Culture - Preliminary, Resulted No growth 05/27/19 Urine Culture - Final, Complete Klebsiella pneumoniae Klebsiella pneumoniae#2 Assessment/Plan Assessment/Plan Assessment/Plan Diverticulitis, sigmoid Colitis of ascending colon and cecum Generalized abdominal pain now mainly lower abdomen b/l Constipation s/p right hip replacement umbilical hernia UTI leukocytosis sbo likely from internal hernia, with worsening pain, slight concern for ischemic bowel chest pain with elevated troponin, repeat normal discussed with Dr. Hills will plan to OR for diagnostic laparoscopy possible open all other indicated procedures. patient understands high risk for her and wishes to proceed To OR. Clinical Quality Measures DVT/VTE Risk/Contraindication: Risk Factor Score Per Nursin RFS Level Per Nursing on Admit: 3=High NAJMA MALCOLM DO May 30, 2019 15:57
--- NOTE | 2019-05-30 16:00 | NUR ---
NON-ADMINISTERED DOSE OF FLAGYL SENT WITH OR NURSES AT THIS TIME. UNABLE TO GIVE DUE TO ADMINISTRATION OF POTASSIUM REPLACEMENT. ROCEPHIN WAS ADMINISTERED.
[2019-05-30] MEDS: LACTATED RINGERS 1,000 ML IV PRN ×3 (16:18→18:36)
[2019-05-30] MEDS ORDERED: HEParin (CENTRAL IV FLUSH) 500 UNIT/5 ML SYR ONE (16:30)
[2019-05-30] MEDS ORDERED: HYDROmorphone 2 MG/ML VIAL (DILAUDID) ONE ×2 (17:05→18:30)
[2019-05-30] MEDS ORDERED: PROPOFOL DRIP (ICU) 100 ML IV ONE (18:24)
[2019-05-30] MEDS ORDERED: ONDANSETRON 4 MG/2 ML (SDV) Z0FRAN IVP PRN (19:30)
[2019-05-30] MEDS ORDERED: HYDROmorphone 2 MG/ML VIAL (DILAUDID) IV ONE (19:30)
[2019-05-30] MEDS: PROPOFOL DRIP (ICU) 100 ML IV SCH (19:45)
--- NOTE | 2019-05-30 19:51 | Progress Note-Post Operative ---
Post-Operative Progess Note Surgeon (s)/Automatic Driller And Reamer (s) Surgeon NAJMA MALCOLM DO Automatic Driller And Reamer: Dr. Luis Pre-Operative Diagnosis small bowel obstruction secondary to internal herniapossible ischemic bowel Post-Operative Diagnosis small bowel obstruction, perforated sigmoid diverticulitis, appendicitis Procedure & Operative Findings Date of Procedure 05/30/19 Procedure Performed/Findings right IJ u/s guided central line placement, diagnostic laparoscopy converted to open, manual decompression of small bowel, sigmoid resection with end colostomy, appendectomy. Anesthesia Type gen Estimated Blood Loss Estimated blood loss (mL): 200mL Specimens/Packing Specimens Removed sigmoid colon, appendix NAJMA MALCOLM DO May 30, 2019 19:51
[2019-05-30 20:33] LABS: ABG BASE EXCESS -11.7 MMOL/L (-2.5-2.5); ABG OXYGEN SATURATION 93 % (94-100); ABG PCO2 44 MMHG (35-45); ABG PO2 78 MMHG (79-93); ABG TCO2 16.9 MMOL/L (21.0-31.0)
[2019-05-30 20:36] LABS: ABG PH 7.16 (7.37-7.43); ALLENS TEST YES-POS
[2019-05-30 20:37] LABS: INSPIRED O2 50%; VENTILATOR YES
--- NOTE | 2019-05-30 20:45 | Diagnostic Imaging Report ---
EXAM: CHEST 1 VIEW, AP/PA ONLY INDICATION: Line placement. COMPARISON: None. FINDINGS: Normal heart size and central pulmonary vascularity. No focal pulmonary opacity, pleural effusion or pneumothorax. ETT tip approximately 1 cm from the melinda. Right IJ CVC tip mid SVC. NG tube tip and side-port in stomach. IMPRESSION: 1. No acute cardiopulmonary findings. 2. Right IJ CVC tip mid SVC. 3. ETT tip approximately 1 cm from the melinda. NG tube tip in the expected position. Dictated by: Dictated on workstation # [id number]
[2019-05-30] MEDS ORDERED: SODIUM BICARB 8.4% 50 MEQ/50 ML VIAL ONE ×2 (21:28→23:24)
[2019-05-30] MEDS ORDERED: ALBUMIN 5% 12.5 GM/250 ML 500 ML IV ONE ×2 (21:29→22:15)
[2019-05-30] MEDS ORDERED: NS (IVPB) 0 ML ONE (21:34)
[2019-05-30] MEDS ORDERED: AMIODARONE (OMNICELL DRIP KIT) 150 MG/3 ML IV ONE (21:34)
[2019-05-30] MEDS ORDERED: D5W 100 ML IVPB 100 ML IV ONE (21:35)
[2019-05-30] MEDS ORDERED: NORMAL SALINE 250 ML ONE (21:40)
[2019-05-30] MEDS ORDERED: AMIODARONE 450 MG/9 ML (CORDARONE) VIAL IV ONE (21:40)
[2019-05-30] MEDS ORDERED: D5W IV SOLUTION (EXCEL) 250 ML IV ONE (21:41)
[2019-05-30] MEDS ORDERED: MAGNESIUM 1 GM/100 ML IVPB 100 ML IV ONE (21:47)
[2019-05-30] MEDS: MAGNESIUM 1 GM/100 ML IVPB IV SCH ×3 (22:00→23:15)
[2019-05-30] MEDS: POTASSIUM CL 10 MEQ/50 ML IVPB (PRE-MIX) IV SCH ×5 (22:00→23:17)
[2019-05-30] MEDS ORDERED: NS (IVPB) 250 ML ONE (22:11)
[2019-05-30] MEDS ORDERED: NOREPINEPHRINE 4 MG/4 ML (LEVOPHED) AMP IV ONE (22:11)
[2019-05-30] MEDS ORDERED: SODIUM BICARB 8.4% 50 MEQ/50 ML (ABBOTT) SYR IV ONE ×2 (22:15→23:30)
[2019-05-30] MEDS: NOREPINEPHRINE 4 MG in NS (IVPB) 250 ML IV SCH (22:25)
[2019-05-30 22:26] LABS: ABG BASE EXCESS -9.5 MMOL/L (-2.5-2.5); ABG OXYGEN SATURATION 99 % (94-100); ABG PCO2 31 MMHG (35-45); ABG PO2 105 MMHG (79-93); ABG TCO2 16.5 MMOL/L (21.0-31.0)
[2019-05-30 22:28] LABS: ABG PH 7.32 (7.37-7.43)
[2019-05-30 22:29] LABS: ALLENS TEST ART LINE; INSPIRED O2 60%; PATIENT TEMP 36.2; VENTILATOR YES
[2019-05-30] MEDS: AMITRIPTYLINE 10 MG (ELAVIL) TAB PO SCH (22:29)
[2019-05-30] MEDS: SIMvastatin 40 MG (ZOCOR) TAB PO SCH (22:30)
[2019-05-30] MEDS ORDERED: MAGNESIUM 1 GM/100 ML IVPB 100 ML IV SCH (22:45)
[2019-05-30] MEDS ORDERED: AMIODARONE FOR BOLUS 150 MG in D5W 100 ML IVPB 100 ML IV ONE (22:45)
[2019-05-30] MEDS ORDERED: AMIODARONE 150 MG/D5W 100 ML BOLUS IV ONE ×2 (22:45)
[2019-05-30] MEDS ORDERED: POTASSIUM CL 10MEQ/50ML IVPB 50 ML IV SCH (22:45)
[2019-05-30 22:56] LABS: ALBUMIN 2.6 GM/DL (3.2-4.5); CALCIUM 7.4 MG/DL (8.5-10.1); CREATININE SERUM 1.13 MG/DL (0.60-1.30); POTASSIUM 4.5 MMOL/L (3.6-5.0)
[2019-05-30] MEDS: AMIODARONE 450 MG/250 ML D5W EXCEL IV SCH ×2 (23:45)
[2019-05-31] VITALS (30 sets, daily range): BP systolic 78–138; BP diastolic 43–70
[2019-05-31] MEDS: fentaNYL INJECTION 100 MCG/2 ML AMP IV PRN (00:08)
[2019-05-31] MEDS: POTASSIUM CL 10MEQ/50ML IVPB 50 ML IV SCH ×5 (00:36→09:29)
[2019-05-31] MEDS: KCL 20 MEQ TAB (K-DUR) PO SCH (00:37)
[2019-05-31] MEDS: MAGNESIUM 1 GM/100 ML IVPB 100 ML IV SCH (00:37)
[2019-05-31] MEDS: inSUlin ASPART (NovoLOG) 1 UNIT/0.01 ML (CHARGE PER UNIT) SC SCH ×4 (01:07→18:17)
--- NOTE | 2019-05-31 01:40 | OPERATIVE REPORT ---
DATE OF SERVICE: 05/30/2019 PREOPERATIVE DIAGNOSIS: Small-bowel obstruction secondary to internal hernia, possible ischemic bowel. POSTOPERATIVE DIAGNOSES: Small-bowel obstruction, perforated sigmoid diverticulitis, appendicitis. PROCEDURE: Right internal jugular ultrasound-guided central line placement. Diagnostic laparoscopy converted to open. Manual decompression of small bowel. Sigmoid resection with end-colostomy. Appendectomy. SURGEON: Najma Santos DO SERVER CASHIER: Dr. Luis, assisted in retraction, dissection and closure. ANESTHESIA: General. ESTIMATED BLOOD LOSS: 200 mL. COMPLICATIONS: None. INDICATIONS: The patient is an 78-year-old female who presented with abdominal pain and was found to have some thickening of the cecum and ascending colon along with some sigmoid diverticulitis. The patient was placed on antibiotics. She has slight rise in her white blood cell count, which then the following day began coming down. The patient was feeling better, but she began having change of worsening abdominal exam. She had a repeat CT scan, which showed questionable internal hernia. The patient this morning began having chest pain and has slight elevated troponin, so was awaiting cardiac evaluation. Her repeat troponin was normal. I discussed with Dr. Hills, who feel still pertinent for her to go to the operating room and the patient was discussed that she has higher risk and she does understand this. Consent was signed on the chart. DESCRIPTION OF PROCEDURE: The patient was taken to the operating suite. The right internal jugular vein was prepped and draped in sterile fashion. Ultrasound was used to isolate the right internal jugular vein. The local anesthetic was infiltrated and the right internal jugular vein was accessed under ultrasound guidance. Dark nonpulsatile blood was withdrawn. The guidewire was inserted through the needle and the needle was removed. A #11 blade scalpel was used to make a small skin incision. Dilator was then advanced over the guidewire and removed. The triple lumen catheter was then inserted over the guidewire and the wire was removed. The catheter was secured and all ports were accessed and flushed without difficulty. The area was washed and dried and sterile bandage was applied. The patient was reprepped and draped for abdomen. A 12-mm incision was made just above the umbilicus. Cautery was used to dissect down to the fascia, which was then scored and the abdomen was then entered. Balloon trocar was inserted and the scope was inserted. Multiple adhesions present down in the pelvis, making it difficult to visualize any pathology. The small bowel was extremely dilated as well. Therefore, it was decided to go ahead and convert to open procedure. A midline incision was made. The adhesions were taken down and the small bowel was began to be ran. Multiple adhesions were down the pelvis, which had to be mobilized, which the small bowel was then released where there were adhesions down to the pelvis that was causing obstruction. This was freed, the small bowel was then manually decompressed for suction the gastric contents and an NG tube was already placed. The small bowel was then ran again, no other pathology was noted. The cecum was brought up, large extremely dilated appendix. The base of the appendix had normal appearance. This was dissected around. An Endo-NARESH 2.5 stapler was then fired across the base of the appendix and LigaSure was used to dissect the mesoappendix away from the appendix. The distal portion had been sealed down to the sigmoid colon, which diverticulum was present and demonstrating perforation where small amount of stool and abscess was present. The sigmoid colon was thickened on towards the distal portion. Distal to this area of the perforation, the sigmoid colon was then dissected around and a contour stapler was fired across the colon. The cautery was used to mobilize the sigmoid colon along the white line of Toldt and the LigaSure was used to divide the mesentery. Proximal to the perforation and the thickening of the sigmoid colon, the colon was then dissected around and a contour stapler was then fired. The colon was then continued to be mobilized for end-colostomy. Copious amounts of irrigation was used to irrigate the abdomen. Hemostasis was achieved. At this point, an incision was made lateral to the umbilicus for colostomy formation. The skin was removed and some of the subcutaneous tissue was removed and the fascia was scored. The muscles were divided and end of the colon was brought up through this. Again, the abdomen was then irrigated with copious amounts of irrigation. The fascia was then closed using 4-0 PDS. The wound was then irrigated with copious amounts of irrigation and the skin was then closed with vijay. The colostomy was matured using 3-0 Vicryl. The abdomen was then washed and dried and sterile bandages were applied. Colostomy appliance was applied. The patient tolerated the procedure well. She was left on the ventilator and taken to the intensive care unit. Chest x-ray, pending. Job ID: [id number] DocumentID: [id number] Dictated Date: 05/30/2019 20:16:36 Developmental Services Worker Date: 05/31/2019 01:38:53 Dictated By: NAJMA SANTOS DO
[2019-05-31 01:47] LABS: ABG BASE EXCESS -9.1 MMOL/L (-2.5-2.5); ABG OXYGEN SATURATION 100 % (94-100); ABG PCO2 26 MMHG (35-45); ABG PH 7.39 (7.37-7.43); ABG PO2 233 MMHG (79-93); ABG TCO2 16.2 MMOL/L (21.0-31.0)
[2019-05-31] MEDS: NS IV 1000 ML 1,000 ML IV SCH ×2 (01:50→05:02)
[2019-05-31 01:53] LABS: ALLENS TEST ART LINE; INSPIRED O2 60%; VENTILATOR YES
[2019-05-31] MEDS ORDERED: ALBUMIN 5% 12.5 GM/250 ML 500 ML IV ONE ×2 (03:24→04:45)
[2019-05-31 03:52] LABS: BASOPHILS % (AUTO) 0 % (0-10); EOSINOPHILS % (AUTO) 0 % (0-10); HEMATOCRIT 29 % (35-52); HEMOGLOBIN 9.2 G/DL (11.5-16.0); LYMPHOCYTES # (AUTO) 0.7 X 10^3 (1.0-4.0); LYMPHOCYTES % (AUTO) 2 % (12-44); MEAN CORPUSCULAR HEMOGLOBIN 30 PG (25-34); MEAN CORPUSCULAR HGB CONC 32 G/DL (32-36); MEAN CORPUSCULAR VOLUME 94 FL (80-99); MEAN PLATELET VOLUME 10.5 FL (7.4-10.4); MONOCYTES # (AUTO) 2.2 X 10^3 (0.0-1.0); MONOCYTES % (AUTO) 8 % (0-12); NEUTROPHILS # (AUTO) 25.2 X 10^3 (1.8-7.8); NEUTROPHILS % (AUTO) 90 % (42-75); PLATELET COUNT 274 10^3/uL (130-400); RED CELL DISTRIBUTION WIDTH 14.4 % (10.0-14.5); WHITE BLOOD COUNT 28.1 10^3/uL (4.3-11.0)
[2019-05-31 03:56] LABS: ABG BASE EXCESS -9.5 MMOL/L (-2.5-2.5); ABG OXYGEN SATURATION 96 % (94-100); ABG PCO2 26 MMHG (35-45); ABG PH 7.37 (7.37-7.43); ABG PO2 74 MMHG (79-93); ABG TCO2 15.7 MMOL/L (21.0-31.0)
[2019-05-31 03:58] LABS: ALLENS TEST YES-POS
[2019-05-31 03:59] LABS: INSPIRED O2 30%; VENTILATOR YES
[2019-05-31] MEDS: PROPOFOL DRIP (ICU) 100 ML IV SCH ×5 (04:02→21:58)
[2019-05-31 04:07] LABS: INR 1.3 (0.8-1.4); PROTHROMBIN TIME PATIENT 16.5 SEC (12.2-14.7)
[2019-05-31 04:21] LABS: CALCIUM 7.7 MG/DL (8.5-10.1); CREATININE SERUM 1.42 MG/DL (0.60-1.30); MAGNESIUM 2.6 MG/DL (1.6-2.4); PHOSPHORUS 2.6 MG/DL (2.3-4.7); POTASSIUM 3.8 MMOL/L (3.6-5.0)
[2019-05-31] MEDS ORDERED: NS (IVPB) 250 ML ONE (04:59)
[2019-05-31] MEDS ORDERED: NOREPINEPHRINE 4 MG/4 ML (LEVOPHED) AMP IV ONE (04:59)
[2019-05-31] MEDS: NOREPINEPHRINE 4 MG in NS (IVPB) 250 ML IV SCH (05:03)
[2019-05-31] MEDS ORDERED: ANIDULAFUNGIN INJECTION 200 MG in NS (IVPB) 250 ML IV ONE (05:30)
[2019-05-31] MEDS ORDERED: POTASSIUM CL 10MEQ/50ML IVPB 50 ML IV SCH (05:30)
[2019-05-31] MEDS ORDERED: SODIUM BICARBONATE 8.4% VIAL 150 MEQ in WATER FOR INJECTION, STERILE 1,000 ML IV SCH (05:45)
[2019-05-31] MEDS ORDERED: LACTATED RINGERS 1,000 ML IV SCH (05:45)
[2019-05-31] MEDS ORDERED: D5W 1000 ML IV SOLUTION 1,000 ML ONE (05:46)
[2019-05-31] MEDS ORDERED: SODIUM BICARB 8.4% 50 MEQ/50 ML VIAL ONE ×2 (05:46→05:51)
[2019-05-31] MEDS: metroNIDAZOLE 500MG/100ML IVPB 100 ML IV SCH ×3 (06:06→23:18)
[2019-05-31] MEDS ORDERED: D5W 1000 ML IV SOLUTION 1,000 ML IV SCH (06:15)
--- NOTE | 2019-05-31 06:48 | Pulmonary Consultation ---
History of Present Illness History of Present Illness Date of Consultation 05/31/19 06:42 Time Seen by Provider: 06:42 Date of Admission Reason for Visit: chest pain History of Present Illness 78yo female presented to ED on 05/27 secondary to severe abdominal pain, nausea, vominting, and constipation. Abdominal pain onset was 05/23. No history of diverticulitis, Crohn's, ulcerative colitis or other chronic abdominal problems. Abdominal CT upon admission showed acute diverticulitis and colitis. Pt was started on Rocephin and Flagyl and admitted to 4th floor. Surgery was also consulted at that time. On admission pt had leukocytosis of 22 however LA has been normal. Repeat CT of abd/pelvis on 05/29 shows PSBO with hernia. Pt was also found to have elevated troponin and cardiology was consulted. Secondary to worsening abdominal pain and SBO pt was taken to surgery yesterday. She was found to have a sigmoid colon perforation. After surgery patient was left on v entilator and transferred to ICU. PT is currently intubated and sedated on vent. I am consulted for ICU management. Allergies and Home Medications Allergies Coded Allergies: Sulfa (Sulfonamide Antibiotics) (Unverified Allergy, Unknown, 05/31/19) Home Medications Amitriptyline HCl 10 Mg Tablet, 10 MG PO HS, (Reported) Aspirin 81 Mg Tablet.dr, 81 MG PO BID, (Reported) Docusate Sodium 100 Mg Capsule, 100 MG PO DAILY PRN for CONSTIPATION-1ST LINE, (Reported) Furosemide 40 Mg Tablet, 40 MG PO DAILY, (Reported) Gabapentin 100 Mg Capsule, 100 MG PO TID, (Reported) Hydrocodone/Acetaminophen 1 Each Tablet, 1 TAB PO Q4H PRN for PAIN-MODERATE, (Re ported) Levothyroxine Sodium 50 Mcg Tablet, 50 MCG PO DAILY, (Reported) Lisinopril 10 Mg Tablet, 10 MG PO DAILY, (Reported) Ondansetron HCl 4 Mg Tablet, 4 MG PO TID PRN for NAUSEA/VOMITING-1ST LINE, (Repo rted) Oxycodone HCl 10 Mg Tablet, 10 MG PO Q12H PRN for PAIN-SEVERE, (Reported) Potassium Chloride 20 Meq Tab.er.prt, 20 MEQ PO DAILY, (Reported) Simvastatin 40 Mg Tablet, 40 MG PO HS, (Reported) Past Jpojbmq-Amzoyc-Yjeokv Hx Past Med/Social Hx: Reviewed Nursing Past Med/Soc Hx Patient Social History Alcohol Use: Denies Use Recreational Drug Use: No Smoking Status: Never a Smoker 2nd Hand Smoke Exposure: No Recent Foreign Travel: No Contact w/Someone Who Travel: No Recent Infectious Disease Expo: No Recent Hopitalizations: Yes (hip sx 04/15) Physical Abuse: No Sexual Abuse: No Immunizations Up To Date Date of Pneumonia Vaccine: Aug 28, 2013 Past Medical History Surgeries: Yes Appendectomy, Hysterectomy, Orthopedic Respiratory: No Cardiac: Yes Hypertension Neurological: No Genitourinary: No Gastrointestinal: No Musculoskeletal: No Endocrine: No Cancer: No Psychosocial: No Integumentary: No Blood Disorders: No Family Medical History No Pertinent Family Hx Review of Systems Time Seen by Provider: 07:09 Sepsis Event Evaluation Height, Weight, BMI Height: 5'2.00" Weight: 200lbs. 0.0oz. 90.770467wf; 38.69 BMI Method: Exam Exam Vital Signs Date Time Temp Pulse Resp B/P (MAP) Pulse Ox O2 Delivery O2 Flow Rate FiO2 05/31/19 06:17 61 21 98 30 05/31/19 06:00 62 20 117/52 (73) 98 Mechanical Ventilator 30.00 05/31/19 05:00 64 20 104/49 (67) 98 Mechanical Ventilator 30.00 05/31/19 04:02 36.91551 68 19 110/49 98 Mechanical Ventilator 50.00 05/31/19 04:00 67 20 103/47 (65) 97 Mechanical Ventilator 30.00 05/31/19 03:23 Mechanical Ventilator 30.00 05/31/19 03:00 68 19 110/49 (69) 98 Mechanical Ventilator 35.00 05/31/19 02:22 Mechanical Ventilator 35.00 05/31/19 02:00 67 19 116/53 (74) 100 Mechanical Ventilator 60.00 05/31/19 01:59 66 20 99 45 05/31/19 01:00 64 20 105/50 (68) 100 Mechanical Ventilator 60.00 05/31/19 01:00 64 05/31/19 00:13 67 05/31/19 00:00 140 16 116/64 (81) 100 Mechanical Ventilator 60.00 05/30/19 23:00 118 19 122/72 (89) 100 Mechanical Ventilator 60.00 05/30/19 22:09 Mechanical Ventilator 60.00 05/30/19 22:00 135 20 70/46 (54) 94 Mechanical Ventilator 60.00 05/30/19 21:42 Mechanical Ventilator 60.00 05/30/19 21:42 135 24 92 50 05/30/19 21:29 165 05/30/19 21:27 85 05/30/19 21:00 105/54 (71) Mechanical Ventilator 50.00 05/30/19 20:09 36.3 92 18 93/42 (59) 92 Mechanical Ventilator 50.00 05/30/19 20:00 90/49 (63) Mechanical Ventilator 50.00 05/30/19 20:00 Mechanical Ventilator 50 05/30/19 19:45 36.5 10 100/49 (66) 92 Mechanical Ventilator 50 05/30/19 19:45 Mechanical Ventilator 05/30/19 19:45 36.56070 92 18 93/42 92 Mechanical Ventilator 50.00 05/30/19 19:40 10 100/49 (66) 94 Mechanical Ventilator 50 05/30/19 19:30 102/44 (63) Mechanical Ventilator 50.00 05/30/19 19:30 Mechanical Ventilator 05/30/19 19:30 10 104/50 (68) 94 Mechanical Ventilator 50 05/30/19 19:20 10 102/44 (63) 96 Mechanical Ventilator 50 05/30/19 19:18 92 10 93 50 05/30/19 19:17 36.3 10 115/56 (75) 98 Mechanical Ventilator 50 05/30/19 19:17 Mechanical Ventilator 05/30/19 16:00 36.8 05/30/19 14:20 36.6 88 18 182/82 (115) 96 05/30/19 13:00 77 05/30/19 12:00 36.1 77 18 180/79 (112) 97 Room Air 05/30/19 09:30 37.2 86 18 168/88 (114) 97 Room Air 05/30/19 08:00 37.1 88 24 195/82 (119) 96 Room Air 05/30/19 07:00 79 I & O 05/31/19 07:00 Intake Total 4260 ml Output Total 735 ml Balance 3525 ml Height & Weight Height: 5'2.00" Weight: 200lbs. 0.0oz. 90.919001ow; 38.69 BMI Method: General Appearance: No No Apparent Distress; Mild Distress (intubated), Other (pt is sedated on vent) HEENT: PERRL/EOMI Neck: Normal Inspection Respiratory: Normal Breath Sounds, Decreased Breath Sounds Cardiovascular: No Murmur, Normal Peripheral Pulses, Bradycardia Capillary Refill: Less Than 3 Seconds Gastrointestinal: soft Extremity: Non Tender Neurologic/Psychiatric: Other (intubated) Skin: Normal Color, Warm/Dry Lymphatic: No Adenopathy Results Lab Laboratory Tests 05/29/19 08:02 05/30/19 05:40 05/30/19 22:00 05/30/19 22:21 05/31/19 03:35 Assessment/Plan Assessment/Plan Acute respiratory failure -Continue ventilator care -Decrease VT from 500 to 450 and repeat ABG in 1hr -Not ready for extubation yet. New onset Afib RVR - now converted -Started on Amio last night Acute sigmoid perforation s/p surgical repair -Continue Rocephin and flagyl -Add Eraxis Hypotension with intravascular dehydration -Aggressive IVF -Currently on Levophed -Bolus 1 liter and titrate Levophed -Check Echocardiogram -Repeat munoz cultures Acute renal failure -Aggressive IVF Anion gapped metabolic acidosis probably from ketosis -Repeat UA -IVF - give liter bolus of LR -Continue Bicarb gtt and await repeat labs NSTEMI -Cardiology following Hypothyroid -Change Synthroid to IV with daily dosing for now. Anemia -Monitor Diverticulitis/colitis UTI with klebsiella TANJA MACHADO DO May 31, 2019 06:48
[2019-05-31 06:56] LABS: CLARITY,URINE CLEAR; COLOR,URINE YELLOW; GLUCOSE, URINE (UA) NEGATIVE (NEGATIVE); KETONES,URINE 2+ (NEGATIVE); LEUKOCYTE ESTERASE ,URINE 3+ (NEGATIVE); NITRITE,URINE POSITIVE (NEGATIVE); PH,URINE 5 (5-9); PROTEIN,URINE 3+ (NEGATIVE); UROBILINOGEN,URINE 1 MG/DL (NORMAL)
[2019-05-31 07:13] LABS: BACTERIA,URINE FEW /HPF; BILIRUBIN,URINE 1+ (NEGATIVE)
[2019-05-31] MEDS ORDERED: fentaNYL INJECTION 1,250 MCG in NS (IVPB) 250 ML IV SCH (07:30)
--- NOTE | 2019-05-31 07:30 | NUR ---
TIMELINE NOTE: 05/30/2019 1945: REPORT RECEIVED FROM RECOVERY NURSE AT THIS TIME. TEMP: 36.3, HR: 93 (SINUS RHYTHM), B/P: 84/44 PER LEFT RADIAL ARTERIAL LINE, RR 10, O2 SATURATION 93%. PT IS MECHANICALLY VENTILATED AT THIS TIME: A/C MODE, SIZE 7 TUBE, 24 CM AT THE LIP. LUNG SOUNDS DIMINISHED ON LEFT SIDE. RETAIL ASSISTANT STATED THAT TUBE PLACEMENT WAS 22 AT THE LIP DURING SURGERY. ETT PULLED BACK 2 CM PER R/T. LUNGS SOUNDS NOW AUSCULTATED EQUAL BILATERAL. STAT CHEST X-RAY OBTAINED AT THIS TIME. RESTRAINTS APPLIED. PROPOFOL STARTED ORDERED. SEE INTERVENTIONS FOR PHYSICAL ASSESSMENT. 2057: ORDER RECEIVED FROM E-ICU: ETT POSITION CONFIRMED. INCREASE VENT RATE TO 20. SODIUM BICARBONATE 100 MEQ IV ONCE NOW. ALBUMIN 5% 0.5 LITER RAPID IV BOLUS. AND TO REPEAT LABS AT 11 PM - ABG, LACTATE/;BMP/ALBUMIN/MAGNESIUM. 2129: PT'S HR 160'S-170'S, B/P 60/30, O2 SATURATION 78%. 100% BUTTON PRESSED ON VENTILATOR, R/T NOTIFIED AND E-ICU BUTTON PRESSED. E-ICU ON CAMERA AT THIS TIME TO ASSESS PT. 2133:ORDER RECEIVED FROM -E-ICU: AMIODARONE 150 MG IV ONCE, NOW. 2146: ORDER RECEIVED FROM E-ICU: MAGNESIUM SULFATE 4 GRAMS IV (FIRST 2 GRAMS OVER 30 MINUTES, THEN REMAINING 2 GRAMS OVER 2 HOURS, AND POTASSIUM CHLORIDE 60 MEQ IV OVER THREE HOURS VIA CENTRAL LINE. 2149: ORDER RECEIVED FROM E-ICU: HEMOGLOBIN ONCE, NOW. 2199: E-ICU NOTIFIED OF LOW URINE OUTPUT: 20 ML FOR SHIFT AND CONTINUED LOW B/P: 70'S-80'S SYSTOLIC. EKG OBTAINED: A-FIB NOTED; EKG FAXED TO E-ICU. PT'S TEMP IS 35 DEGREES CELSIUS; WARM BLANKETS AND HEATING BLANKET APPLIED AT THIS TIME. 2: ORDER RECEIVED FOR NOREPINEPHRINE INFUSION, CVP MONITORING, BMP AND TROPONIN ADD TO 11 AM LABS. 2307: ORDERS RECEIVED TO REPEAT SODIUM BICARBONATE 100 MEQ IV ONCE NOW. START AMIODARONE INFUSION, 1 MG/MON FOR SIX HOURS, THEN 0.5 MG/MIN. REPEAT ABG AND LACTATE AT 0130 AM. 2312: ORDERS RECEIVED TO STOP/DISCONTINUE REMAINING OF BOTH POTASSIUM CHLORIDE AND MAGNESIUM SULFATE INFUSION THAT ARE IN PROGRESS. 05/31/2019 0015: PT CONVERTED FROM A-FIB TO SR AT THIS TIME. HR 60'S. 0317: ORDER RECEIVED FROM E-ICU FOR ALBUMIN 5% 0.5 LITER BOLUS. 0511: ORDER RECEIVED TO DISCONTINUE CURRENT IV FLUIDS AND REPLACE WITH; SODIUM BICARBONATE 150 MEQ/LITER, DILUTED IN STERIL WATER AT 200 ML/HR, AND AFTER ONE HOUR DECREASE VENT RATE TO 18, REPEAT LABS AT 8 AM AND NOON- ABD, LACTATE AND POTASSIUM. 0600: DR. MACHADO UPDATED AT THIS TIME ON PT'S CURRENT CONDITION AND CONTINUED LOW URINE OUTPUT (45 ML FOR THE LAST 12 HOURS); SEE ORDER HISTORY FOR NEW ORDERS. FLUIDS CHANGED TO D5W WITH 150 MEQ OF SODIUM BICARB TO RUN AT 200 ML/HR AT THIS TIME. 0630: PT'S DAUGHTER NOTIFIED AT THIS TIME OF PT'S CURRENT STATUS AND LAST NIGHTS EVENTS. PT'S DAUGHTER TO COME IN AT THIS TIME.
[2019-05-31 07:32] LABS: ABG BASE EXCESS -6.5 MMOL/L (-2.5-2.5); ABG OXYGEN SATURATION 99 % (94-100); ABG PCO2 28 MMHG (35-45); ABG PH 7.41 (7.37-7.43); ABG PO2 102 MMHG (79-93); ABG TCO2 18.3 MMOL/L (21.0-31.0)
[2019-05-31 07:34] LABS: INSPIRED O2 30%; PATIENT TEMP 36.2; VENTILATOR YES
--- NOTE | 2019-05-31 07:39 | Cardiology Progress Note ---
Subjective Date Seen by Provider: May 31, 2019 Time Seen by Provider: 07:34 Subjective/Events-last exam Patient is sedated and intubated, had complex stay overnight transient hypotension and hypoxemia and atrial fibrillation with rapid ventricular response. She is stabilizing better now with heart rate back to sinus rhythm, blood pressure is better on pressors Review of Systems General: Other (Sedated and intubated) Focused Exam Lactate Level 05/30/19 22:21: Lactic Acid Level 1.30 05/31/19 01:30: Lactic Acid Level 1.37 Objective-Cardiology Exam Last Set of Vital Signs Vital Signs 05/31/19 05/31/19 05/31/19 04:02 06:00 06:17 Temp 36.64729 Pulse 61 Resp 21 B/P (MAP) 117/52 (73) Pulse Ox 98 O2 Delivery Mechanical Ventilator O2 Flow Rate 30.00 FiO2 30 Capillary Refill : Less Than 3 SecondsLess Than 3 Seconds I&O Intake and Output 05/31/19 00:00 Intake Total 4060 ml Output Total 1140 ml Balance 2920 ml Intake Oral 0 ml IV Total 4060 ml Output Urine Total 940 ml Estimated Blood Loss 200 ml General: Severe Distress, Other (Sedated and intubated) HEENT: Atraumatic, PERRLA Neck: Supple, No JVD Lungs: Normal Air Movement, Other (Bilateral rhonchi) Heart: Regular Rate, Normal S1, Normal S2 Abdomen: Other (Absent bowel sounds) Extremities: No Clubbing, No Cyanosis Skin: No Rashes, No Breakdown Neuro: Other (Sedated and intubated) Psych/Mental Status: Other (Sedated and intubated) Results Lab Laboratory Tests 05/30/19 22:00 05/30/19 22:21 05/31/19 03:35 A/P-Cardiology Admission Diagnosis Septic shock Type II IL Diverticulitis Hypertension Assessment/Plan Chest pain nonspecific etiology, atypical in presentation, improved, and initial repeat troponin was normal. Had elevation in troponin probably type II IL Type II myocardial infarction secondary to hypoxemia, hypotension and tachycardia Acute respiratory failure, hypoxemia, ventilatory dependent, managed by Dr. Moran Transient atrial fibrillation occurred on May 30, 2019, converted to sinus rhythm and maintained on amiodarone drip Diverticulitis, small bowel obstruction and appendicitis, had surgical appendectomy and decompression. Septic shock, receiving antibiotic, maintained on pressors, managed by Dr. Moran History of hypertension, continue to monitor blood pressure History of hyperlipidemia maintained on simvastatin Hypothyroidism contained on levothyroxin Elevated BNP and troponin, I will evaluate 12-lead EKG, evaluate echocardiogram. Clinical Quality Measures DVT/VTE Risk/Contraindication: Risk Factor Score Per Nursin RFS Level Per Nursing on Admit: 3=High HAL DOUGLAS MD May 31, 2019 07:39
[2019-05-31 07:52] LABS: BILIRUBIN,TOTAL 0.4 MG/DL (0.1-1.0); CALCIUM 7.7 MG/DL (8.5-10.1); CREATININE SERUM 1.56 MG/DL (0.60-1.30); POTASSIUM 3.9 MMOL/L (3.6-5.0); TOTAL PROTEIN 4.7 GM/DL (6.4-8.2)
[2019-05-31] MEDS: LEVOTHYROXINE 100 MCG INJ (SYNTHROID) VIAL IV SCH (08:01)
--- NOTE | 2019-05-31 08:11 | Physical Therapy Progress Note ---
Therapy Progress Note Patient is s/p bowel surgery secondary to perforation. Patient is currently sedated and on mechanical ventilator. PT will require new orders when patient is medically stable and able to actively participate with skilled therapy. RYLAND APONTE PT May 31, 2019 08:10
[2019-05-31] MEDS: AMIODARONE 450 MG/250 ML D5W EXCEL IV SCH ×2 (08:15)
--- NOTE | 2019-05-31 08:32 | Diagnostic Imaging Report ---
EXAMINATION: Portable semierect AP chest at 353h. INDICATION: Respiratory distress There is shallow inspiration when compared to the prior exam of 05/30/2019. Allowing for this technical factor the overall appearance of the chest has not changed significantly. The heart is stable in size. The lungs are generally clear. There is still no evidence for failure, pneumonia or for a significant pleural effusion. The mediastinum is not widened. The osseous structures are intact. The prior exam did note that the ET tube tip is approximately 1 cm from the melinda. On this study the tip of the ET tube lies approximately 2 cm above the melinda. It could be retracted another 1 cm. The NG line and the central venous catheter on the right are similar in appearance. IMPRESSION: 1. Allowing for the shallow degree of inspiration there has been no significant change since the prior exam. 2. The tip of the ET tube could be retracted 1 cm. Dictated by: Dictated on workstation # [id number]
[2019-05-31] MEDS ORDERED: NS IV 1000 ML 1,000 ML IV ONE (08:45)
--- NOTE | 2019-05-31 08:57 | Anesthesia-General Post-Op ---
General Patient Condition Mental Status/LOC: Unreactive (sedated on ventilator) Cardiovascular: Unsatisfactory (existing cardiac issues/changes. Pressors for BP support.) Nausea/Vomiting: Absent (SREE) Respiratory: Unsatisfactory (ventilator dependant) Pain: Controlled Complications: Absent Post Op Complications Complications None Follow Up Care/Instructions Patient Instructions None needed. Anesthesia/Patient Condition Patient Condition No apparent adverse anesthesia problems. LAVELLE LUZ CRNA May 31, 2019 08:57
[2019-05-31 09:05] LABS: ABG BASE EXCESS -4.8 MMOL/L (-2.5-2.5); ABG OXYGEN SATURATION 97 % (94-100); ABG PCO2 30 MMHG (35-45); ABG PH 7.42 (7.37-7.43); ABG PO2 74 MMHG (79-93)
[2019-05-31 09:06] LABS: ALLENS TEST POSITIVE
[2019-05-31 09:07] LABS: INSPIRED O2 20; PATIENT TEMP 36.2; VENTILATOR YES
[2019-05-31] MEDS ORDERED: DOPamine DRIP 250 ML IV ONE (10:30)
[2019-05-31] MEDS: DOPamine DRIP 250 ML IV SCH (10:57)
[2019-05-31] MEDS: SODIUM BICARBONATE 8.4% VIAL 150 MEQ in D5W 1000 ML IV SOLUTION 1,000 ML IV SCH ×2 (12:09→16:24)
--- NOTE | 2019-05-31 13:19 | NUR ---
Pt remains intubated at this time. Due to present condition, pt is not a candidate for enteral nutrition. If pt remains intubated and condition does not improve, pt may require TPN. RD will continue to follow plan of care and assess TF recommendations are needed. Phyllis Johnson MS, RD, LD [phone]
[2019-05-31] MEDS ORDERED: cefTRIAXone 1,000 MG/SWFI 10 ML IV PUSH IV SCH ×2 (14:00)
[2019-05-31 14:13] LABS: ABG BASE EXCESS -1.3 MMOL/L (-2.5-2.5); ABG OXYGEN SATURATION 87 % (94-100); ABG PCO2 38 MMHG (35-45); ABG PO2 48 MMHG (79-93); ABG TCO2 24.5 MMOL/L (21.0-31.0)
[2019-05-31 14:15] LABS: INSPIRED O2 50%; PATIENT TEMP 35.2; VENTILATOR YES
--- NOTE | 2019-05-31 17:31 | Progress Note ---
Subjective Subjective Date Seen by Provider: May 31, 2019 Time Seen by Provider: 08:45 78 yo F Intubated, sedated in ICU after having bowel resection due to perforated bowel. Overnight events- atrial fibrillation with RVR- converted with amiodarone. Levothyroxine switched to IV antifungal coveraged added to metronidazole, rocephin. Review of Systems ROS Unable to Obtain: intubated, sedated General: Other (Sedated and intubated) HEENT: No Head Aches, No Visual Changes Pulmonary: No Cough Cardiovascular: No: Chest Pain Gastrointestinal: No: Nausea, Vomiting, Abdominal Pain Genitourinary: No Dysuria Neurological: Weakness All Other Systems Reviewed All Other Systems Reviewed: Yes Objective Exam Vital Signs Vital Signs Date Time Temp Pulse Resp B/P (MAP) Pulse Ox O2 Delivery O2 Flow Rate FiO2 05/31/19 16:42 35.8 05/31/19 16:23 67 05/31/19 16:04 63 24 96 50 05/31/19 16:00 63 18 94/47 (63) 95 Mechanical Ventilator 30.00 05/31/19 15:00 62 23 99/47 (64) 91 Mechanical Ventilator 30.00 05/31/19 14:00 72 21 122/66 (84) 86 Mechanical Ventilator 30.00 05/31/19 13:00 70 27 116/51 (72) 92 Mechanical Ventilator 30.00 05/31/19 13:00 71 05/31/19 12:10 75 05/31/19 12:00 35.4 74 17 130/65 (86) Mechanical Ventilator 30.00 05/31/19 11:00 85 15 138/54 (82) 93 Mechanical Ventilator 30.00 05/31/19 10:57 86 05/31/19 10:14 52 28 94 30 05/31/19 10:00 54 24 96/50 (65) 91 Mechanical Ventilator 30.00 05/31/19 09:00 56 22 78/55 (63) 95 Mechanical Ventilator 30.00 05/31/19 08:00 Mechanical Ventilator 45 05/31/19 08:00 60 05/31/19 08:00 35.6 87 122/65 (84) Mechanical Ventilator 30.00 05/31/19 07:00 60 20 120/53 (75) 97 Mechanical Ventilator 30.00 05/31/19 07:00 60 05/31/19 06:17 61 21 98 30 05/31/19 06:00 62 20 117/52 (73) 98 Mechanical Ventilator 30.00 05/31/19 05:00 64 20 104/49 (67) 98 Mechanical Ventilator 30.00 05/31/19 04:02 [id number] 68 19 110/49 98 Mechanical Ventilator 50.00 05/31/19 04:00 67 20 103/47 (65) 97 Mechanical Ventilator 30.00 05/31/19 03:23 Mechanical Ventilator 30.00 05/31/19 03:00 68 19 110/49 (69) 98 Mechanical Ventilator 35.00 05/31/19 02:22 Mechanical Ventilator 35.00 05/31/19 02:00 67 19 116/53 (74) 100 Mechanical Ventilator 60.00 05/31/19 01:59 66 20 99 45 05/31/19 01:00 64 20 105/50 (68) 100 Mechanical Ventilator 60.00 05/31/19 01:00 64 05/31/19 00:13 67 05/31/19 00:00 140 16 116/64 (81) 100 Mechanical Ventilator 60.00 05/30/19 23:00 118 19 122/72 (89) 100 Mechanical Ventilator 60.00 05/30/19 22:09 Mechanical Ventilator 60.00 05/30/19 22:00 135 20 70/46 (54) 94 Mechanical Ventilator 60.00 05/30/19 21:42 Mechanical Ventilator 60.00 05/30/19 21:42 135 24 92 50 05/30/19 21:29 165 05/30/19 21:27 85 05/30/19 21:00 105/54 (71) Mechanical Ventilator 50.00 05/30/19 20:09 36.3 92 18 93/42 (59) 92 Mechanical Ventilator 50.00 05/30/19 20:00 90/49 (63) Mechanical Ventilator 50.00 05/30/19 20:00 Mechanical Ventilator 50 05/30/19 19:45 36.5 10 100/49 (66) 92 Mechanical Ventilator 50 05/30/19 19:45 Mechanical Ventilator 05/30/19 19:45 [id number] 92 18 93/42 92 Mechanical Ventilator 50.00 05/30/19 19:40 10 100/49 (66) 94 Mechanical Ventilator 50 05/30/19 19:30 102/44 (63) Mechanical Ventilator 50.00 05/30/19 19:30 Mechanical Ventilator 05/30/19 19:30 10 104/50 (68) 94 Mechanical Ventilator 50 05/30/19 19:20 10 102/44 (63) 96 Mechanical Ventilator 50 05/30/19 19:18 92 10 93 50 05/30/19 19:17 36.3 10 115/56 (75) 98 Mechanical Ventilator 50 05/30/19 19:17 Mechanical Ventilator I & O 05/31/19 07:00 Intake Total 4260 ml Output Total 535 ml Balance 3725 ml General Appearance: No No Apparent Distress; Mild Distress (intubated), Other (pt is sedated on vent) HEENT: No PERRL/EOMI Neck: Normal Inspection Respiratory: Normal Breath Sounds, Decreased Breath Sounds Cardiovascular: Regular Rate, Rhythm, No Murmur, Normal Peripheral Pulses Gastrointestinal: Soft Rectal: Deferred Extremity: Non Tender Neurologic/Psychiatric: Other (intubated) Skin: Normal Color, Warm/Dry Lymphatic: No Adenopathy Results Lab Laboratory Tests 05/30/19 20:30: Blood Gas Puncture Site LT ART, Blood Gas Patient Temperature 36.0, Arterial Blood pH 7.16*L, Arterial Blood Partial Pressure CO2 44, Arterial Blood Partial Pressure O2 78L, Arterial Blood HCO3 16*L, Arterial Blood Total CO2 16.9L, Arterial Blood Oxygen Saturation 93L, Arterial Blood Base Excess -11.7L, David Test YES-POS, Blood Gas Ventilator Setting YES, Blood Gas Inspired Oxygen 50% 05/30/19 22:00: Hemoglobin 9.2L 05/30/19 22:18: Blood Gas Puncture Site ART LINE, Blood Gas Patient Temperature 36.2, Arterial Blood pH 7.32*L, Arterial Blood Partial Pressure CO2 31L, Arterial Blood Partial Pressure O2 105H, Arterial Blood HCO3 16*L, Arterial Blood Total CO2 16.5L, Arterial Blood Oxygen Saturation 99, Arterial Blood Base Excess -9.5L, David Test ART LINE, Blood Gas Ventilator Setting YES, Blood Gas Inspired Oxygen 60% 05/30/19 22:21: Sodium Level 143, Potassium Level 4.5, Chloride Level 115H, Carbon Dioxide Level 14L, Anion Gap 14, Blood Urea Nitrogen 30H, Creatinine 1.13, Estimat Glomerular Filtration Rate 46, BUN/Creatinine Ratio 27, Glucose Level 219H, Lactic Acid Level 1.30, Calcium Level 7.4L, Magnesium Level 3.0H, Troponin I 1.437*H, B-Type Natriuretic Peptide 775.8H, Albumin 2.6L 05/31/19 01:03: Glucometer 213H 05/31/19 01:30: Blood Gas Puncture Site ART LINE, Blood Gas Patient Temperature 35.0, Arterial Blood pH 7.39, Arterial Blood Partial Pressure CO2 26L, Arterial Blood Partial Pressure O2 233H, Arterial Blood HCO3 15*L, Arterial Blood Total CO2 16.2L, Arterial Blood Oxygen Saturation 100, Arterial Blood Base Excess -9.1L, David Test ART LINE, Blood Gas Ventilator Setting YES, Blood Gas Inspired Oxygen 60%, Lactic Acid Level 1.37 05/31/19 03:35: White Blood Count 28.1H, Red Blood Count 3.06L, Hemoglobin 9.2L, Hematocrit 29L, Mean Corpuscular Volume 94, Mean Corpuscular Hemoglobin 30, Mean Corpuscular Hemoglobin Concent 32, Red Cell Distribution Width 14.4, Platelet Count 274, Mean Platelet Volume 10.5H, Neutrophils (%) (Auto) 90H, Lymphocytes (%) (Auto) 2L, Monocytes (%) (Auto) 8, Eosinophils (%) (Auto) 0, Basophils (%) (Auto) 0, Neutrophils # (Auto) 25.2H, Lymphocytes # (Auto) 0.7L, Monocytes # (Auto) 2.2H, Eosinophils # (Auto) 0.0, Basophils # (Auto) 0.0, Prothrombin Time 16.5H, INR Comment 1.3, Sodium Level 144, Potassium Level 3.8, Chloride Level 114H, Carbon Dioxide Level 14L, Anion Gap 16H, Blood Urea Nitrogen 32H, Creatinine 1.42H, Estimat Glomerular Filtration Rate 36, BUN/Creatinine Ratio 23, Glucose Level 192H, Calcium Level 7.7L, Phosphorus Level 2.6, Magnesium Level 2.6H 05/31/19 03:45: Blood Gas Puncture Site LTRADIAL, Blood Gas Patient Temperature 36.0, Arterial Blood pH 7.37, Arterial Blood Partial Pressure CO2 26L, Arterial Blood Partial Pressure O2 74L, Arterial Blood HCO3 15*L, Arterial Blood Total CO2 15.7L, Arterial Blood Oxygen Saturation 96, Arterial Blood Base Excess -9.5L, David Test YES-POS, Blood Gas Ventilator Setting YES, Blood Gas Inspired Oxygen 30% 05/31/19 06:45: Urine Color YELLOW, Urine Clarity CLEAR, Urine pH 5, Urine Specific [place] 1.020, Urine Protein 3+H, Urine Glucose (UA) NEGATIVE, Urine Ketones 2+H, Urine Nitrite POSITIVEH, Urine Bilirubin 1+H, Urine Urobilinogen 1, Urine Leukocyte Esterase 3+H, Urine RBC (Auto) 2+H, Urine RBC NONE, Urine WBC 10-25H, Urine Squamous Epithelial Cells 5-10, Urine Crystals NONE, Urine Bacteria FEWH, Urine Casts PRESENT, Urine Granular Casts 5-10H, Urine Mucus NEGATIVE, Urine Culture Indicated YES 05/31/19 07:15: Sodium Level 144, Potassium Level 3.9, Chloride Level 113H, Carbon Dioxide Level 17L, Anion Gap 14, Blood Urea Nitrogen 32H, Creatinine 1.56H, Estimat Glomerular Filtration Rate 32, BUN/Creatinine Ratio 21, Glucose Level 197H, Calcium Level 7.7L, Corrected Calcium 8.5, Total Bilirubin 0.4, Aspartate Amino Transf (AST/SGOT) 18, Alanine Aminotransferase (ALT/SGPT) 12, Alkaline Phosphatase 74, Troponin I 2.518*H, Total Protein 4.7L, Albumin 3.0L 05/31/19 07:20: Blood Gas Puncture Site L ART LINE, Blood Gas Patient Temperature 36.2, Arterial Blood pH 7.41, Arterial Blood Partial Pressure CO2 28L, Arterial Blood Partial Pressure O2 102H, Arterial Blood HCO3 17*L, Arterial Blood Total CO2 18.3L, Arterial Blood Oxygen Saturation 99, Arterial Blood Base Excess -6.5L, David Test N/A, Blood Gas Ventilator Setting YES, Blood Gas Inspired Oxygen 30% 05/31/19 08:50: Blood Gas Puncture Site LEFT RADIAL, Blood Gas Patient Temperature 36.2, Arterial Blood pH 7.42, Arterial Blood Partial Pressure CO2 30L, Arterial Blood Partial Pressure O2 74L, Arterial Blood HCO3 19L, Arterial Blood Total CO2 20.0L , Arterial Blood Oxygen Saturation 97, Arterial Blood Base Excess -4.8L, David Test POSITIVE, Blood Gas Ventilator Setting YES, Blood Gas Inspired Oxygen 20 05/31/19 08:53: Potassium Level 4.5, Lactic Acid Level 1.95 05/31/19 12:17: Potassium Level 4.0, Lactic Acid Level 1.10 05/31/19 12:20: Glucometer 272H 05/31/19 14:04: Blood Gas Puncture Site UNK, Blood Gas Patient Temperature 35.2, Arterial Blood pH 7.40, Arterial Blood Partial Pressure CO2 38, Arterial Blood Partial Pressure O2 48L, Arterial Blood HCO3 23, Arterial Blood Total CO2 24.5, Arterial Blood Oxygen Saturation 87L, Arterial Blood Base Excess -1.3, David Test UNK, Blood Gas Ventilator Setting YES, Blood Gas Inspired Oxygen 50% Microbiology 05/27/19 Blood Culture - Preliminary, Resulted No growth 05/30/19 Gram Stain, Resulted Pending 05/30/19 Sputum Culture - Preliminary, Resulted Usual upper respiratory pau 05/27/19 Urine Culture - Final, Complete Klebsiella pneumoniae Klebsiella pneumoniae#2 Assessment/Plan Assessment/Plan Admission Dx intractable abdominal pain diverticulitis urinary tract infection Assessment and Plan 05/27/19 IVF, NPO- monitor respiratory status with the IVF. Rechecking labs in the AM continue metronidazole and rocephin- checking blood cultures and urine cultures. 05/28/19- SVT overnight- resolved. WBC still elevated. No fevers since yesterday. Cr still 1.4. Abdominal pain improved compared to admission. 05/29/19- Cr improved to 1.27, WBC back down to 23K- will continue to trend. Temp yesterday evening was 37.9C- Still on metronidazole and ceftriaxone. Urine culture growing gram negative- awaiting antibiotic coverage. Blood cu ltures negative to date. -will try 5mg ambien to help her sleep tonight. -will add on metoclopramide daily to see if it will help with nausea and stimulate her GI tract to get back to functioning. 05/30/19- ST with PVC. Dr. Hills consulted- troponin initially elevated; normal on repeat- ex lap converted to open- appendix removed and colostomy placed for bowel resection due to diverticulitis perforation. 05/31/19- Dr Moran consulted for ICU/vent management- not improved enough to wean/extubate- Pulm to re-evaluate in AM. DVT ppx: scds Prognosis: guarded/poor Problems: (1) Partial small bowel obstruction (2) Acute on chronic kidney failure Qualifiers: Assessment & Plan: fluids Avoid nephrotoxic agents. (3) Right lower quadrant abdominal pain Assessment & Plan: due to colitis, diverticulitis. (4) Diverticulitis of intestine Qualifiers: Qualified Codes: K57.20 - Diverticulitis of large intestine with perforation and abscess without bleeding (5) Vomiting Qualifiers: Qualified Codes: R11.14 - Bilious vomiting (6) Hypothyroid (7) Hypertension Qualifiers: Qualified Codes: I10 - Essential (primary) hypertension (8) UTI due to Klebsiella species [facility] Dx intractable abdominal pain diverticulitis urinary tract infection Clinical Quality Measures Admission Status Admission Dx intractable abdominal pain diverticulitis urinary tract infection DVT/VTE Risk/Contraindication: Risk Factor Score Per Nursin RFS Level Per Nursing on Admit: 3=High MADYSON HERMAN MD May 31, 2019 17:31
--- NOTE | 2019-05-31 19:59 | Progress Note - Surgery ---
Subjective Date Seen by a Provider: May 31, 2019 Time Seen by a Provider: 09:00 Subjective/Events-last exam Patient remains on vent. Poor urine output. Sedated. Afib with RVR converted. Requiring pressors. No family at bedside at this time. Focused Exam Lactate Level 05/31/19 01:30: Lactic Acid Level 1.37 05/31/19 08:53: Lactic Acid Level 1.95 05/31/19 12:17: Lactic Acid Level 1.10 Objective Exam Vital Signs Date Time Temp Pulse Resp B/P (MAP) Pulse Ox O2 Delivery O2 Flow Rate FiO2 05/31/19 18:00 71 20 97/49 (65) 97 Mechanical Ventilator 30.00 05/31/19 17:00 76 20 109/55 (73) 96 Mechanical Ventilator 30.00 05/31/19 16:42 35.8 05/31/19 16:23 67 05/31/19 16:04 63 24 96 50 05/31/19 16:00 63 18 94/47 (63) 95 Mechanical Ventilator 30.00 05/31/19 15:00 62 23 99/47 (64) 91 Mechanical Ventilator 30.00 05/31/19 14:00 72 21 122/66 (84) 86 Mechanical Ventilator 30.00 05/31/19 13:00 70 27 116/51 (72) 92 Mechanical Ventilator 30.00 05/31/19 13:00 71 05/31/19 12:10 75 05/31/19 12:00 35.4 74 17 130/65 (86) Mechanical Ventilator 30.00 05/31/19 11:00 85 15 138/54 (82) 93 Mechanical Ventilator 30.00 05/31/19 10:57 86 05/31/19 10:14 52 28 94 30 05/31/19 10:00 54 24 96/50 (65) 91 Mechanical Ventilator 30.00 05/31/19 09:00 56 22 78/55 (63) 95 Mechanical Ventilator 30.00 05/31/19 08:00 Mechanical Ventilator 45 05/31/19 08:00 60 05/31/19 08:00 35.6 87 122/65 (84) Mechanical Ventilator 30.00 05/31/19 07:00 60 20 120/53 (75) 97 Mechanical Ventilator 30.00 05/31/19 07:00 60 05/31/19 06:17 61 21 98 30 10/4/19 06:00 62 20 117/52 (73) 98 Mechanical Ventilator 30.00 05/31/19 05:00 64 20 104/49 (67) 98 Mechanical Ventilator 30.00 05/31/19 04:02 36.07194 68 19 110/49 98 Mechanical Ventilator 50.00 05/31/19 04:00 67 20 103/47 (65) 97 Mechanical Ventilator 30.00 05/31/19 03:23 Mechanical Ventilator 30.00 05/31/19 03:00 68 19 110/49 (69) 98 Mechanical Ventilator 35.00 05/31/19 02:22 Mechanical Ventilator 35.00 05/31/19 02:00 67 19 116/53 (74) 100 Mechanical Ventilator 60.00 05/31/19 01:59 66 20 99 45 05/31/19 01:00 64 20 105/50 (68) 100 Mechanical Ventilator 60.00 05/31/19 01:00 64 05/31/19 00:13 67 05/31/19 00:00 140 16 116/64 (81) 100 Mechanical Ventilator 60.00 05/30/19 23:00 118 19 122/72 (89) 100 Mechanical Ventilator 60.00 05/30/19 22:09 Mechanical Ventilator 60.00 05/30/19 22:00 135 20 70/46 (54) 94 Mechanical Ventilator 60.00 05/30/19 21:42 Mechanical Ventilator 60.00 05/30/19 21:42 135 24 92 50 05/30/19 21:29 165 05/30/19 21:27 85 05/30/19 21:00 105/54 (71) Mechanical Ventilator 50.00 05/30/19 20:09 36.3 92 18 93/42 (59) 92 Mechanical Ventilator 50.00 05/30/19 20:00 90/49 (63) Mechanical Ventilator 50.00 05/30/19 20:00 Mechanical Ventilator 50 I & O 05/31/19 07:00 Intake Total 4260 ml Output Total 535 ml Balance 3725 ml Capillary Refill : Less Than 3 SecondsLess Than 3 Seconds General Appearance: No No Apparent Distress; Other (pt is sedated on vent) HEENT: No PERRL/EOMI Neck: Normal Inspection, Supple Respiratory: Normal Breath Sounds, Decreased Breath Sounds Cardiovascular: Regular Rate, Rhythm, Normal Peripheral Pulses Gastrointestinal: soft (incision c/d/i, colostomy slightly edematous, small amount of stool) Extremity: Non Tender Neurologic/Psychiatric: No Alert, No Oriented x3; Other (intubated) Skin: Normal Color, Warm/Dry Lymphatic: No Adenopathy Results Lab Laboratory Tests 05/30/19 20:30: Blood Gas Puncture Site LT ART, Blood Gas Patient Temperature 36.0, Arterial Blood pH 7.16*L, Arterial Blood Partial Pressure CO2 44, Arterial Blood Partial Pressure O2 78L, Arterial Blood HCO3 16*L, Arterial Blood Total CO2 16.9L, Arterial Blood Oxygen Saturation 93L, Arterial Blood Base Excess -11.7L, David Test YES-POS, Blood Gas Ventilator Setting YES, Blood Gas Inspired Oxygen 50% 05/30/19 22:00: Hemoglobin 9.2L 05/30/19 22:18: Blood Gas Puncture Site ART LINE, Blood Gas Patient Temperature 36.2, Arterial Blood pH 7.32*L, Arterial Blood Partial Pressure CO2 31L, Arterial Blood Partial Pressure O2 105H, Arterial Blood HCO3 16*L, Arterial Blood Total CO2 16.5L, Arterial Blood Oxygen Saturation 99, Arterial Blood Base Excess -9.5L, David Test ART LINE, Blood Gas Ventilator Setting YES, Blood Gas Inspired Oxygen 60% 05/30/19 22:21: Sodium Level 143, Potassium Level 4.5, Chloride Level 115H, Carbon Dioxide Level 14L, Anion Gap 14, Blood Urea Nitrogen 30H, Creatinine 1.13, Estimat Glomerular Filtration Rate 46, BUN/Creatinine Ratio 27, Glucose Level 219H, Lactic Acid Level 1.30, Calcium Level 7.4L, Magnesium Level 3.0H, Troponin I 1.437*H, B-Type Natriuretic Peptide 775.8H, Albumin 2.6L 05/31/19 01:03: Glucometer 213H 05/31/19 01:30: Blood Gas Puncture Site ART LINE, Blood Gas Patient Temperature 35.0, Arterial Blood pH 7.39, Arterial Blood Partial Pressure CO2 26L, Arterial Blood Partial Pressure O2 233H, Arterial Blood HCO3 15*L, Arterial Blood Total CO2 16.2L, Ar terial Blood Oxygen Saturation 100, Arterial Blood Base Excess -9.1L, David Test ART LINE, Blood Gas Ventilator Setting YES, Blood Gas Inspired Oxygen 60%, Lactic Acid Level 1.37 05/31/19 03:35: White Blood Count 28.1H, Red Blood Count 3.06L, Hemoglobin 9.2L, Hematocrit 29L, Mean Corpuscular Volume 94, Mean Corpuscular Hemoglobin 30, Mean Corpuscular Hemoglobin Concent 32, Red Cell Distribution Width 14.4, Platelet Count 274, Mean Platelet Volume 10.5H, Neutrophils (%) (Auto) 90H, Lymphocytes (%) (Auto) 2L, Monocytes (%) (Auto) 8, Eosinophils (%) (Auto) 0, Basophils (%) (Auto) 0, Ne utrophils # (Auto) 25.2H, Lymphocytes # (Auto) 0.7L, Monocytes # (Auto) 2.2H, Eosinophils # (Auto) 0.0, Basophils # (Auto) 0.0, Prothrombin Time 16.5H, INR Comment 1.3, Sodium Level 144, Potassium Level 3.8, Chloride Level 114H, Carbon Dioxide Level 14L, Anion Gap 16H, Blood Urea Nitrogen 32H, Creatinine 1.42H, Estimat Glomerular Filtration Rate 36, BUN/Creatinine Ratio 23, Glucose Level 192H, Calcium Level 7.7L, Phosphorus Level 2.6, Magnesium Level 2.6H 05/31/19 03:45: Blood Gas Puncture Site LTRADIAL, Blood Gas Patient Temperature 36.0, Arterial Blood pH 7.37, Arterial Blood Partial Pressure CO2 26L, Arterial Blood Partial Pressure O2 74L, Arterial Blood HCO3 15*L, Arterial Blood Total CO2 15.7L, Arterial Blood Oxygen Saturation 96, Arterial Blood Base Excess -9.5L, David Test YES-POS, Blood Gas Ventilator Setting YES, Blood Gas Inspired Oxygen 30% 05/31/19 06:45: Urine Color YELLOW, Urine Clarity CLEAR, Urine pH 5, Urine Specific [place] 1.020, Urine Protein 3+H, Urine Glucose (UA) NEGATIVE, Urine Ketones 2+H, Urine Nitrite POSITIVEH, Urine Bilirubin 1+H, Urine Urobilinogen 1, Urine Leukocyte Esterase 3+H, Urine RBC (Auto) 2+H, Urine RBC NONE, Urine WBC 10-25H, Urine Squamous Epithelial Cells 5-10, Urine Crystals NONE, Urine Bacteria FEWH, Urine Casts PRESENT, Urine Granular Casts 5-10H, Urine Mucus NEGATIVE, Urine Culture Indicated YES 05/31/19 07:15: Sodium Level 144, Potassium Level 3.9, Chloride Level 113H, Carbon Dioxide Level 17L, Anion Gap 14, Blood Urea Nitrogen 32H, Creatinine 1.56H, Estimat Glomerular Filtration Rate 32, BUN/Creatinine Ratio 21, Glucose Level 197H, Calcium Level 7.7L, Corrected Calcium 8.5, Total Bilirubin 0.4, Aspartate Amino Transf (AST/SGOT) 18, Alanine Aminotransferase (ALT/SGPT) 12, Alkaline Phosphatase 74, Troponin I 2.518*H, Total Protein 4.7L, Albumin 3.0L 05/31/19 07:20: Blood Gas Puncture Site L ART LINE, Blood Gas Patient Temperature 36.2, Arterial Blood pH 7.41, Arterial Blood Partial Pressure CO2 28L, Arterial Blood Partial Pressure O2 102H, Arterial Blood HCO3 17*L, Arterial Blood Total CO2 18.3L, Arterial Blood Oxygen Saturation 99, Arterial Blood Base Excess -6.5L, David Test N/A, Blood Gas Ventilator Setting YES, Blood Gas Inspired Oxygen 30% 05/31/19 08:50: Blood Gas Puncture Site LEFT RADIAL, Blood Gas Patient Temperature 36.2, Arterial Blood pH 7.42, Arterial Blood Partial Pressure CO2 30L, Arterial Blood Partial Pressure O2 74L, Arterial Blood HCO3 19L, Arterial Blood Total CO2 20.0L , Arterial Blood Oxygen Saturation 97, Arterial Blood Base Excess -4.8L, David Test POSITIVE, Blood Gas Ventilator Setting YES, Blood Gas Inspired Oxygen 20 05/31/19 08:53: Potassium Level 4.5, Lactic Acid Level 1.95 05/31/19 12:17: Potassium Level 4.0, Lactic Acid Level 1.10 05/31/19 12:20: Glucometer 272H 05/31/19 14:04: Blood Gas Puncture Site UNK, Blood Gas Patient Temperature 35.2, Arterial Blood pH 7.40, Arterial Blood Partial Pressure CO2 38, Arterial Blood Partial Pressure O2 48L, Arterial Blood HCO3 23, Arterial Blood Total CO2 24.5, Arterial Blood Oxygen Saturation 87L, Arterial Blood Base Excess -1.3, David Test UNK, Blood Gas Ventilator Setting YES, Blood Gas Inspired Oxygen 50% 05/31/19 18:12: Glucometer 240H Microbiology 05/27/19 Blood Culture - Preliminary, Resulted No growth 05/30/19 Gram Stain, Resulted Pending 05/30/19 Sputum Culture - Preliminary, Resulted Usual upper respiratory pau 05/27/19 Urine Culture - Final, Complete Klebsiella pneumoniae Klebsiella pneumoniae#2 Assessment/Plan Assessment/Plan Assessment/Plan s/p sigmoid resection end colostomy, appendectomy, manual decompression small bowel, central line placement perforated sigmoid colon, appendicitis, small bowel obstruction Nstemi Acute renal failure Acute respiratory failure UTI On vent Aggressive fluid resuscitation Chen for accurate I/O Continue ABX Echo ordered Guarded condition Clinical Quality Measures DVT/VTE Risk/Contraindication: Risk Factor Score Per Nursin RFS Level Per Nursing on Admit: 3=High NAJMA MALCOLM DO May 31, 2019 19:59
[2019-06-01] VITALS (31 sets, daily range): BP systolic 83–132; BP diastolic 46–80
[2019-06-01] MEDS: SODIUM BICARBONATE 8.4% VIAL 150 MEQ in D5W 1000 ML IV SOLUTION 1,000 ML IV SCH ×2 (00:34→06:17)
[2019-06-01] MEDS ORDERED: NS (IVPB) 100 ML ONE (01:28)
[2019-06-01] MEDS ORDERED: fentaNYL (OMNICELL DRIP KIT ONLY) 250 MCG/5 ML AMP ONE (01:28)
[2019-06-01] MEDS: inSUlin ASPART (NovoLOG) 1 UNIT/0.01 ML (CHARGE PER UNIT) SC SCH ×4 (01:40→18:25)
[2019-06-01] MEDS ORDERED: fentaNYL INJECTION 500 MCG in NS (IVPB) 90 ML IV SCH (03:00)
[2019-06-01] MEDS ORDERED: fentaNYL INJECTION 500 MCG in NS (IVPB) 100 ML IV SCH (03:15)
[2019-06-01] MEDS ORDERED: FENTANYL INJ SCH (03:15)
[2019-06-01] MEDS ORDERED: NORMAL SALINE INJ SCH (03:15)
[2019-06-01] MEDS: DOPamine DRIP 250 ML IV SCH (04:02)
[2019-06-01] MEDS: PROPOFOL DRIP (ICU) 100 ML IV SCH (04:02)
[2019-06-01 04:12] LABS: BASOPHILS % (AUTO) 0 % (0-10); EOSINOPHILS % (AUTO) 0 % (0-10); HEMATOCRIT 25 % (35-52); HEMOGLOBIN 7.9 G/DL (11.5-16.0); LYMPHOCYTES # (AUTO) 1.4 X 10^3 (1.0-4.0); LYMPHOCYTES % (AUTO) 7 % (12-44); MEAN CORPUSCULAR HEMOGLOBIN 30 PG (25-34); MEAN CORPUSCULAR HGB CONC 32 G/DL (32-36); MEAN CORPUSCULAR VOLUME 95 FL (80-99); MEAN PLATELET VOLUME 10.9 FL (7.4-10.4); MONOCYTES # (AUTO) 1.8 X 10^3 (0.0-1.0); MONOCYTES % (AUTO) 9 % (0-12); NEUTROPHILS # (AUTO) 16.2 X 10^3 (1.8-7.8); NEUTROPHILS % (AUTO) 84 % (42-75); PLATELET COUNT 159 10^3/uL (130-400); RED CELL DISTRIBUTION WIDTH 14.4 % (10.0-14.5); WHITE BLOOD COUNT 19.3 10^3/uL (4.3-11.0)
[2019-06-01 04:17] LABS: ABG BASE EXCESS 4.9 MMOL/L (-2.5-2.5); ABG OXYGEN SATURATION 98 % (94-100); ABG PCO2 38 MMHG (35-45); ABG PH 7.49 (7.37-7.43); ABG PO2 86 MMHG (79-93); ABG TCO2 29.7 MMOL/L (21.0-31.0); ALLENS TEST YES-POS; INSPIRED O2 35%; VENTILATOR YES
[2019-06-01 04:25] LABS: CALCIUM 7.1 MG/DL (8.5-10.1); CREATININE SERUM 1.79 MG/DL (0.60-1.30); MAGNESIUM 2.3 MG/DL (1.6-2.4); PHOSPHORUS 2.2 MG/DL (2.3-4.7); POTASSIUM 3.7 MMOL/L (3.6-5.0)
[2019-06-01] MEDS ORDERED: NS IV 1000 ML 1,000 ML ONE (04:56)
[2019-06-01] MEDS ORDERED: NS IV 1000 ML 1,000 ML IV ONE (05:15)
[2019-06-01] MEDS: MAGNESIUM 1 GM/100 ML IVPB 100 ML IV SCH (06:17)
[2019-06-01] MEDS: POTASSIUM CL 10MEQ/50ML IVPB 50 ML IV SCH (06:17)
[2019-06-01] MEDS: KCL 20 MEQ TAB (K-DUR) PO SCH (06:17)
--- NOTE | 2019-06-01 06:29 | Pulmonary Progress Note ---
Subjective Time Seen by a Provider: 07:27 Subjective/Events-last exam Pt is sedated on vent Sepsis Event Evaluation Height, Weight, BMI Height: 5'2.00" Weight: 200lbs. 0.0oz. 90.842602na; 38.69 BMI Method: Focused Exam Lactate Level 05/31/19 01:30: Lactic Acid Level 1.37 05/31/19 08:53: Lactic Acid Level 1.95 05/31/19 12:17: Lactic Acid Level 1.10 Exam Exam Vital Signs Date Time Temp Pulse Resp B/P (MAP) Pulse Ox O2 Delivery O2 Flow Rate FiO2 06/01/19 06:19 Mechanical Ventilator 30.00 06/01/19 06:16 53 20 100 35 06/01/19 06:00 56 20 106/57 (73) 100 Mechanical Ventilator 35.00 06/01/19 05:00 57 98/51 (67) 98 Mechanical Ventilator 35.00 06/01/19 04:02 36.25353 60 19 104/60 98 Mechanical Ventilator 50.00 06/01/19 04:02 36.26786 60 19 104/60 98 Mechanical Ventilator 50.00 06/01/19 04:00 64 114/66 (82) 97 Mechanical Ventilator 35.00 06/01/19 04:00 36.0 06/01/19 03:00 60 19 104/60 (75) 98 Mechanical Ventilator 35.00 06/01/19 02:50 61 20 98 35 06/01/19 02:00 64 19 108/62 (77) 98 Mechanical Ventilator 40.00 06/01/19 01:00 74 06/01/19 01:00 73 19 120/70 (87) 97 Mechanical Ventilator 40.00 06/01/19 00:00 75 19 113/59 (77) 97 Mechanical Ventilator 40.00 06/01/19 00:00 36.5 05/31/19 23:00 78 16 104/58 (73) 95 Mechanical Ventilator 40.00 05/31/19 22:20 Mechanical Ventilator 40.00 05/31/19 22:15 73 22 97 40 05/31/19 22:00 74 18 103/53 (70) 97 Mechanical Ventilator 45.00 05/31/19 21:58 36.56797 76 18 104/54 97 Mechanical Ventilator 50.00 05/31/19 21:00 76 18 104/54 (71) 97 Mechanical Ventilator 45.00 05/31/19 20:00 Mechanical Ventilator 45 05/31/19 19:56 36.8 69 22 97/50 (66) 97 Mechanical Ventilator 45.00 05/31/19 19:31 Mechanical Ventilator 45.00 05/31/19 19:25 68 24 98 45 05/31/19 19:00 68 20 95/49 (64) 98 Mechanical Ventilator 30.00 05/31/19 19:00 69 05/31/19 18:00 71 20 97/49 (65) 97 Mechanical Ventilator 30.00 05/31/19 17:00 76 20 109/55 (73) 96 Mechanical Ventilator 30.00 05/31/19 16:42 35.8 05/31/19 16:23 67 05/31/19 16:04 63 24 96 50 05/31/19 16:00 63 18 94/47 (63) 95 Mechanical Ventilator 30.00 05/31/19 15:00 62 23 99/47 (64) 91 Mechanical Ventilator 30.00 05/31/19 14:00 72 21 122/66 (84) 86 Mechanical Ventilator 30.00 05/31/19 13:00 70 27 116/51 (72) 92 Mechanical Ventilator 30.00 05/31/19 13:00 71 05/31/19 12:10 75 05/31/19 12:00 35.4 74 17 130/65 (86) Mechanical Ventilator 30.00 05/31/19 11:00 85 15 138/54 (82) 93 Mechanical Ventilator 30.00 05/31/19 10:57 86 05/31/19 10:14 52 28 94 30 05/31/19 10:00 54 24 96/50 (65) 91 Mechanical Ventilator 30.00 05/31/19 09:00 56 22 78/55 (63) 95 Mechanical Ventilator 30.00 05/31/19 08:00 Mechanical Ventilator 45 05/31/19 08:00 60 05/31/19 08:00 35.6 87 122/65 (84) Mechanical Ventilator 30.00 05/31/19 07:00 60 20 120/53 (75) 97 Mechanical Ventilator 30.00 05/31/19 07:00 60 I & O 06/01/19 07:00 Intake Total 6550 ml Output Total 470 ml Balance 6080 ml Height & Weight Height: 5'2.00" Weight: 200lbs. 0.0oz. 90.895535xn; 38.69 BMI Method: General Appearance: No No Apparent Distress; Other (pt is sedated on vent) HEENT: No PERRL/EOMI Neck: Normal Inspection, Supple Respiratory: Normal Breath Sounds, Decreased Breath Sounds Cardiovascular: Regular Rate, Rhythm, Normal Peripheral Pulses Capillary Refill: Less Than 3 Seconds Gastrointestinal: soft (incision c/d/i, colostomy slightly edematous, small amount of stool) Extremity: Non Tender Neurologic/Psychiatric: No Alert, No Oriented x3; Other (intubated) Skin: Normal Color, Warm/Dry Lymphatic: No Adenopathy Results Lab Laboratory Tests 05/30/19 22:00 05/30/19 22:21 05/31/19 03:35 05/31/19 07:15 05/31/19 08:53 05/31/19 12:17 06/01/19 03:30 Assessment/Plan Assessment/Plan Acute respiratory failure -Continue ventilator care -Wean Sedation and once pt is awake will start weaning vent New onset Afib RVR - now converted -Amio Cardiomyopathy EF 25% with hypotension -Currently on Dopamine Anemia with hypotension, Cardiomyopathy, and renal failure -Will give 1 unit of PRBC Acute sigmoid perforation s/p surgical repair -Continue Rocephin and flagyl - Eraxis Hypotension with intravascular dehydration -Aggressive IVF -Currently Dopamine -Repeat munoz cultures Acute renal failure -Aggressive IVF Anion gapped metabolic acidosis probably from ketosis -D/C bicarb gtt and change IVF to LR at 125 NSTEMI -Cardiology following Hypothyroid -Change Synthroid to IV with daily dosing for now. Anemia -Monitor Diverticulitis/colitis UTI with klebsiella TANJA MACHADO DO Jun 01, 2019 06:29
[2019-06-01] MEDS: metroNIDAZOLE 500MG/100ML IVPB 100 ML IV SCH ×2 (06:51→14:15)
--- NOTE | 2019-06-01 07:16 | Diagnostic Imaging Report ---
INDICATION: Dyspnea. COMPARISON: 05/31/2019. DISCUSSION: Single portable upright view of the chest was obtained. Endotracheal tube, enteric tube, and right IJ central venous catheter are stable. Mild cardiomegaly is stable. Infiltrate within the left lung base is new, atelectasis versus pneumonia. No pleural fluid or pneumothorax. No osseous abnormality. IMPRESSION: 1. Stable support lines. 2. New infiltrate within the left lung base. Dictated by: Dictated on workstation # [id number]
--- NOTE | 2019-06-01 08:02 | Cardiology Progress Note ---
Subjective Date Seen by Provider: Jun 01, 2019 Time Seen by Provider: 07:58 Subjective/Events-last exam Patient is sedated and intubated, borderline hypotensive Review of Systems General: Other (Unable to provide review of systems) Focused Exam Lactate Level 05/31/19 01:30: Lactic Acid Level 1.37 05/31/19 08:53: Lactic Acid Level 1.95 05/31/19 12:17: Lactic Acid Level 1.10 Objective-Cardiology Exam Last Set of Vital Signs Vital Signs 06/01/19 06/01/19 06:16 07:46 Temp 36.0 Pulse 62 Resp 18 B/P (MAP) 110/58 (75) Pulse Ox 90 O2 Delivery Mechanical Ventilator O2 Flow Rate 30.00 FiO2 35 Capillary Refill : Less Than 3 SecondsLess Than 3 Seconds I&O Intake and Output 06/01/19 00:00 Intake Total 5050 ml Output Total 395 ml Balance 4655 ml Intake Oral 0 ml IV Total 5050 ml Output Urine Total 395 ml General: Severe Distress, Other (Sedated and intubated) HEENT: Atraumatic, PERRLA Neck: Supple, No JVD Lungs: Normal Air Movement, Other (Bilateral rhonchi) Heart: Regular Rate, Normal S1, Normal S2 Abdomen: Other (Absent bowel sounds) Extremities: No Clubbing, No Cyanosis Skin: No Rashes, No Breakdown Neuro: Other (Sedated and intubated) Psych/Mental Status: Other (Sedated and intubated) Results Lab Laboratory Tests 05/31/19 08:53 05/31/19 12:17 06/01/19 03:30 A/P-Cardiology Admission Diagnosis Septic shock Type II DE Diverticulitis Hypertension Assessment/Plan Type II myocardial infarction probably secondary to hypoxemia, hypotension and tachycardia, continue to monitor Acute respiratory failure, hypoxemia, ventilatory dependent, managed by Dr. Moran Transient atrial fibrillation occurred on May 30, 2019, converted to sinus rhythm and maintained on amiodarone drip Diverticulitis, small bowel obstruction, perforation and appendicitis, had surgical appendectomy with colon resection and decompression. Hypotensive shock combination between septic and cardiogenic shock, on pressors and improving slowly. Severe cardiomyopathy with severe left ventricular systolic dysfunction, probably ischemic in nature, cannot tolerate beta blockers, DAVID inhibitor and/or ARB to the hypotension, echo showed ejection fraction 25-30 percent, moderate tricuspid regurgitation, PA 45 mmHg Acute renal failure, receiving IV fluid, continue to monitor renal function History of hypertension, continue to monitor blood pressure History of hyperlipidemia, has been on simvastatin as an outpatient Hypothyroidism contained on levothyroxin Clinical Quality Measures DVT/VTE Risk/Contraindication: Risk Factor Score Per Nursin RFS Level Per Nursing on Admit: 3=High HAL DOUGLAS MD Jun 01, 2019 08:02
--- NOTE | 2019-06-01 08:08 | Physical Therapy Progress Note ---
Therapy Progress Note Patient still on vent, will continue to monitor. NORIS CARUSO PT Jun 01, 2019 08:08
[2019-06-01] MEDS: ANIDULAFUNGIN INJECTION 100 MG in NS (IVPB) 100 ML IV SCH (08:23)
[2019-06-01] MEDS: D5 LR IV SOLUTION 1,000 ML IV SCH ×3 (08:24→17:00)
[2019-06-01] MEDS: LEVOTHYROXINE 100 MCG INJ (SYNTHROID) VIAL IV SCH (08:24)
[2019-06-01] MEDS ORDERED: SODIUM PHOSPHATE INJ 15 MM in D5W 100 ML IVPB 100 ML IV ONE (09:30)
--- NOTE | 2019-06-01 09:30 | NUR ---
PT SEDATION TURNED OFF AT 0830. PT FOLLOWING COMMANDS PRIOR TO. PT CONTINUES TO FOLLOW COMMANDS. VENT CHANGES MADE PER DR. MACHADO. ABG OBTAINED.
--- NOTE | 2019-06-01 10:05 | NUR ---
THIS RN INFORMED DR. MALCOLM AND DR. MAYORGA OF PATIENTS DECREASED OUTPUT. PT OUTPUT CONTINUES AT 75ML FOR 4 HOURS. NO NEW ORDERS AT THIS TIME.
[2019-06-01 10:08] LABS: ABG BASE EXCESS 5.4 MMOL/L (-2.5-2.5); ABG OXYGEN SATURATION 84 % (94-100); ABG PCO2 40 MMHG (35-45); ABG PH 7.48 (7.37-7.43); ABG PO2 52 MMHG (79-93); ABG TCO2 30.4 MMOL/L (21.0-31.0); ALLENS TEST YES-POS; INSPIRED O2 30%; VENTILATOR YES
[2019-06-01 10:09] LABS: PATIENT TEMP 36.6
--- NOTE | 2019-06-01 10:40 | NUR ---
PT EXTUBED. CONTINUES WITH NG TUBE PER DR. MALCOLM. PT TOLERATING VAPOTHERM. SPOKE WITH DAUGHTER, GEOVANNY BARAJAS REGARDING PT CONDITION. FAMILY WISHES TO MAKE PT DNR. CONTACTED DR. MACHADO TO INFORM.
[2019-06-01] MEDS ORDERED: fentaNYL PCA 1,000 MCG/NS 80 ML (TOTAL VOLUME 100 ML) INJ SCH ×2 (11:45)
[2019-06-01] MEDS ORDERED: fentaNYL INJECTION 1,250 MCG in NS (IVPB) 250 ML IV SCH (12:00)
[2019-06-01] MEDS ORDERED: NS (IVPB) 50 ML ONE (13:25)
[2019-06-01] MEDS ORDERED: NS 50 ML (IVPB) BAG IV ONE (13:30)
--- NOTE | 2019-06-01 14:06 | Progress Note - Surgery ---
MORENITA HERNANDEZ [facility] 06/01/19 1406: Subjective Date Seen by a Provider: Jun 01, 2019 Time Seen by a Provider: 09:15 Subjective/Events-last exam Patient is following simple commands. Still on vent. Urine output seems to be improving. Family was not at bedside at the time. WBC has improved to 19.3. EF was shown to be 25%. Focused Exam Lactate Level 05/31/19 01:30: Lactic Acid Level 1.37 05/31/19 08:53: Lactic Acid Level 1.95 05/31/19 12:17: Lactic Acid Level 1.10 Objective Exam Vital Signs Date Time Temp Pulse Resp B/P (MAP) Pulse Ox O2 Delivery O2 Flow Rate FiO2 06/01/19 13:50 36.4 71 15 130/68 95 Vapotherm 40 06/01/19 13:38 36.2 71 16 126/69 94 Vapotherm 40 06/01/19 13:00 70 15 119/59 (79) 96 Vapotherm 20.00 40.00 06/01/19 13:00 36.4 06/01/19 12:32 78 06/01/19 12:00 Vapotherm 40 06/01/19 12:00 73 15 101/60 (74) 96 Vapotherm 20.00 40.00 06/01/19 11:45 36.2 06/01/19 11:36 Vapotherm 20.00 40.00 06/01/19 11:00 80 12 95/56 (69) 96 Vapotherm 30.00 50.00 06/01/19 10:52 Vapotherm 30.00 50.00 06/01/19 10:00 82 36 111/67 (82) 97 Mechanical Ventilator 30.00 06/01/19 09:00 63 17 116/61 (79) 94 Mechanical Ventilator 30.00 06/01/19 08:00 64 12 106/60 (75) 94 Mechanical Ventilator 30.00 06/01/19 08:00 Mechanical Ventilator 45 06/01/19 07:46 36.0 62 18 110/58 (75) 90 Mechanical Ventilator 30.00 06/01/19 07:00 61 06/01/19 06:19 Mechanical Ventilator 30.00 06/01/19 06:16 53 20 100 35 06/01/19 06:00 56 20 106/57 (73) 100 Mechanical Ventilator 35.00 06/01/19 05:00 57 98/51 (67) 98 Mechanical Ventilator 35.00 06/01/19 04:02 36.02718 60 19 104/60 98 Mechanical Ventilator 50.00 06/01/19 04:02 36.51341 60 19 104/60 98 Mechanical Ventilator 50.00 06/01/19 04:00 64 114/66 (82) 97 Mechanical Ventilator 35.00 06/01/19 04:00 36.0 06/01/19 03:00 60 19 104/60 (75) 98 Mechanical Ventilator 35.00 06/01/19 02:50 61 20 98 35 06/01/19 02:00 64 19 108/62 (77) 98 Mechanical Ventilator 40.00 06/01/19 01:00 74 06/01/19 01:00 73 19 120/70 (87) 97 Mechanical Ventilator 40.00 06/01/19 00:00 75 19 113/59 (77) 97 Mechanical Ventilator 40.00 06/01/19 00:00 36.5 05/31/19 23:00 78 16 104/58 (73) 95 Mechanical Ventilator 40.00 05/31/19 22:20 Mechanical Ventilator 40.00 05/31/19 22:15 73 22 97 40 05/31/19 22:00 74 18 103/53 (70) 97 Mechanical Ventilator 45.00 05/31/19 21:58 36.78052 76 18 104/54 97 Mechanical Ventilator 50.00 05/31/19 21:00 76 18 104/54 (71) 97 Mechanical Ventilator 45.00 05/31/19 20:00 Mechanical Ventilator 45 05/31/19 19:56 36.8 69 22 97/50 (66) 97 Mechanical Ventilator 45.00 05/31/19 19:31 Mechanical Ventilator 45.00 05/31/19 19:25 68 24 98 45 05/31/19 19:00 68 20 95/49 (64) 98 Mechanical Ventilator 30.00 05/31/19 19:00 69 05/31/19 18:00 71 20 97/49 (65) 97 Mechanical Ventilator 30.00 05/31/19 17:00 76 20 109/55 (73) 96 Mechanical Ventilator 30.00 05/31/19 16:42 35.8 05/31/19 16:23 67 05/31/19 16:04 63 24 96 50 05/31/19 16:00 63 18 94/47 (63) 95 Mechanical Ventilator 30.00 05/31/19 15:00 62 23 99/47 (64) 91 Mechanical Ventilator 30.00 I & O 06/01/19 07:00 Intake Total 7300 ml Output Total 500 ml Balance 6800 ml Capillary Refill : Less Than 3 SecondsLess Than 3 Seconds General Appearance: Mild Distress (intubated), Other (pt is sedated on vent) HEENT: PERRL/EOMI Neck: Normal Inspection Respiratory: Decreased Breath Sounds Cardiovascular: No Murmur, Normal Peripheral Pulses, Bradycardia Gastrointestinal: soft Extremity: Non Tender Neurologic/Psychiatric: Other (intubated) Skin: Normal Color, Warm/Dry Lymphatic: No Adenopathy Results Lab Laboratory Tests 05/31/19 14:04: Blood Gas Puncture Site UNK, Blood Gas Patient Temperature 35.2, Arterial Blood pH 7.40, Arterial Blood Partial Pressure CO2 38, Arterial Blood Partial Pressure O2 48L, Arterial Blood HCO3 23, Arterial Blood Total CO2 24.5, Arterial Blood Oxygen Saturation 87L, Arterial Blood Base Excess -1.3, David Test UNK, Blood Gas Ventilator Setting YES, Blood Gas Inspired Oxygen 50% 05/31/19 18:12: Glucometer 240H 06/01/19 00:05: Glucometer 181H 06/01/19 03:30: White Blood Count 19.3H, Red Blood Count 2.60L, Hemoglobin 7.9L, Hematocrit 25L, Mean Corpuscular Volume 95, Mean Corpuscular Hemoglobin 30, Mean Corpuscular Hemoglobin Concent 32, Red Cell Distribution Width 14.4, Platelet Count 159, Mean Platelet Volume 10.9H, Neutrophils (%) (Auto) 84H, Lymphocytes (%) (Auto) 7L, Monocytes (%) (Auto) 9, Eosinophils (%) (Auto) 0, Basophils (%) (Auto) 0, Neutrophils # (Auto) 16.2H, Lymphocytes # (Auto) 1.4, Monocytes # (Auto) 1.8H, Eosinophils # (Auto) 0.0, Basophils # (Auto) 0.0, Sodium Level 144, Potassium Level 3.7, Chloride Level 106, Carbon Dioxide Level 28, Anion Gap 10, Blood Urea Nitrogen 31H, Creatinine 1.79H, Estimat Glomerular Filtration Rate 27, BUN/Creatinine Ratio 17, Glucose Level 196H, Calcium Level 7.1L, Phosphorus Level 2.2L, Magnesium Level 2.3 06/01/19 04:02: Blood Gas Puncture Site RIGHT RADIAL, Blood Gas Patient Temperature 36.0, Arterial Blood pH 7.49H, Arterial Blood Partial Pressure CO2 38, Arterial Blood Partial Pressure O2 86, Arterial Blood HCO3 29H, Arterial Blood Total CO2 29.7, Arterial Blood Oxygen Saturation 98, Arterial Blood Base Excess 4.9H, David Test YES-POS, Blood Gas Ventilator Setting YES, Blood Gas Inspired Oxygen 35% 06/01/19 05:34: Glucometer 197H 06/01/19 10:00: Blood Gas Puncture Site RT RAD, Blood Gas Patient Temperature 36.6, Arterial Blood pH 7.48H, Arterial Blood Partial Pressure CO2 40, Arterial Blood Partial Pressure O2 52L, Arterial Blood HCO3 29H, Arterial Blood Total CO2 30.4, Arter ial Blood Oxygen Saturation 84L, Arterial Blood Base Excess 5.4H, David Test YES-POS, Blood Gas Ventilator Setting YES, Blood Gas Inspired Oxygen 30% Microbiology 05/27/19 Blood Culture - Preliminary, Resulted No growth 05/30/19 Gram Stain - Final, Complete 05/30/19 Sputum Culture - Final, Complete Usual upper respiratory pau 05/31/19 Urine Culture - Final, Complete NO GROWTH Assessment/Plan Assessment/Plan Assessment/Plan s/p sigmoid resection end colostomy, appendectomy, manual decompression small bowel, central line placement perforated sigmoid colon, appendicitis, small bowel obstruction Nstemi Acute renal failure Acute respiratory failure UTI systolic Heart failure On vent Aggressive fluid resuscitation Chen for accurate I/O Continue ABX Echo ordered Guarded condition Clinical Quality Measures DVT/VTE Risk/Contraindication: Risk Factor Score Per Nursin RFS Level Per Nursing on Admit: 3=High NAJMA SANTOS DO 06/01/19 1419: Subjective Subjective/Events-last exam Patient remains on vent. Decreasing sedation to try and wean vent. Patient with low urine output. Still requiring pressors. WBC slightly decreased. No family at bedside. Objective Exam General Appearance: Other (pt on vent) HEENT: PERRL/EOMI Neck: Normal Inspection Respiratory: Other (intubated) Cardiovascular: Bradycardia Gastrointestinal: soft, other (colostomy edematous and some liquid output. incision c/d/i) Extremity: Non Tender Neurologic/Psychiatric: Other (intubated follow some simple commands) Skin: Normal Color, Warm/Dry Lymphatic: No Adenopathy Assessment/Plan Assessment/Plan Assessment/Plan s/p sigmoid resection end colostomy, appendectomy, manual decompression small bowel, central line placement perforated sigmoid colon, appendicitis, small bowel obstruction Nstemi Cardiomyopathy with EF of 25% Acute renal failure Acute respiratory failure UTI decreasing sedation and going to attempt to wean continue abx continue medical management Leave NG tube at this time still guarded prognosis Supervisory-Addendum Brief Verification & Attestation Participated in pt care: history, MDM, physical Personally performed: exam, history, MDM, supervision of care Care discussed with: Medical Student Procedures: n/a Results interpretation: Verified all documentation Verification and Attestation of Medical Student E/M Service A medical student performed and documented this service in my presence. I reviewed and verified all information documented by the medical student and made modifications to such information, when appropriate. I personally performed the physical exam and medical decision making. Najma Santos, Jun 01, 2019,14:19 MORENITA HERNANDEZ [facility] Jun 01, 2019 14:06 NAJMA SANTOS DO Jun 01, 2019 14:19
--- NOTE | 2019-06-01 14:07 | NUR ---
THIS RN INFORMED DR. MACHADO OF PATIENTS OUTPUT. PT OUTPUT CONTINUES TO BE LOW AT 18ML/HR. NO NEW ORDERS AT THIS TIME.
--- NOTE | 2019-06-01 16:30 | Progress Note - Hospitalist ---
Subjective HPI/CC On Admission Date Seen by Provider: Jun 01, 2019 Time Seen by Provider: 09:00 abdominal pain Subjective/Events-last exam She remains intubated. She is awake and following commands. She denies pain. Focused Exam Lactate Level 05/31/19 01:30: Lactic Acid Level 1.37 05/31/19 08:53: Lactic Acid Level 1.95 05/31/19 12:17: Lactic Acid Level 1.10 Objective Exam Vital Signs Vital Signs Date Time Temp Pulse Resp B/P (MAP) Pulse Ox O2 Delivery O2 Flow Rate FiO2 06/01/19 16:00 70 15 122/70 (87) 95 Vapotherm 20.00 40.00 06/01/19 15:40 36.3 40 Capillary Refill : Less Than 3 SecondsLess Than 3 Seconds General Appearance: Mild Distress, Other (uncomfortable) HEENT: Other (ET tube in place) Respiratory: Lungs Clear, Normal Breath Sounds, No Respiratory Distress Cardiovascular: Regular Rate, Rhythm, No Edema, No Murmur Gastrointestinal: Normal Bowel Sounds, Soft; No Distended, No Guarding Extremity: Normal Inspection, Non Tender Neurologic/Psychiatric: Alert Skin: Normal Color, Warm/Dry Results/Procedures Lab Laboratory Tests 06/01/19 03:30 Patient resulted labs reviewed. Assessment/Plan Assessment and Plan Assess & Plan/Chief Complaint Diverticulitis with perforation Multifactorial shock, septic and cardiogenic -Surgery following, appreciate assistance -Continue ceftriaxone, flagyl, and eraxis -Remains on Dopamine gtt AHRF -Remains intubated and sedated -Weaning sedation today -Working toward extubation AFib with RVR NSTEMI Acute on chronic HFrEF -Cardiology following -Likely type 2 NSTEMI -Continue Dopamine gtt MARIA ANTONIA -Cr slowly trending upward -Urine output decreased -Continue IV fluids -Continue to monitor -Avoid nephrotoxins Klebsiella UTI -Continue ceftriaxone Electrolyte disorders -Continue to monitor and replace as needed DVT Prophylaxis: SCDs Diagnosis/Problems Diagnosis/Problems (1) Diverticulitis of intestine with perforation Status: Acute (2) Shock Status: Acute (3) NSTEMI (non-ST elevation myocardial infarction) Status: Acute (4) HFrEF (heart failure with reduced ejection fraction) (5) Hypophosphatemia Status: Acute (6) Atrial fibrillation with RVR Status: Acute (7) Acute respiratory failure with hypoxia Status: Acute (8) UTI due to Klebsiella species Status: Acute (9) Acute on chronic kidney failure Status: Acute Qualifiers: Chronic kidney disease stage: stage 3 (moderate) Clinical Quality Measures DVT/VTE Risk/Contraindication: Risk Factor Score Per Nursin RFS Level Per Nursing on Admit: 3=High MARILUZ MAYORGA MD Jun 01, 2019 16:30
[2019-06-02] VITALS (24 sets, daily range): BP systolic 131–168; BP diastolic 72–113
[2019-06-02] MEDS: inSUlin ASPART (NovoLOG) 1 UNIT/0.01 ML (CHARGE PER UNIT) SC SCH ×4 (00:16→18:38)
[2019-06-02] MEDS: D5 LR IV SOLUTION 1,000 ML IV SCH ×2 (02:28→09:10)
[2019-06-02 03:44] LABS: BASOPHILS % (AUTO) 0 % (0-10); EOSINOPHILS # (AUTO) 0.1 10^3/uL (0.0-0.3); EOSINOPHILS % (AUTO) 0 % (0-10); HEMATOCRIT 28 % (35-52); LYMPHOCYTES # (AUTO) 1.8 X 10^3 (1.0-4.0); LYMPHOCYTES % (AUTO) 9 % (12-44); MEAN CORPUSCULAR HEMOGLOBIN 30 PG (25-34); MEAN CORPUSCULAR HGB CONC 32 G/DL (32-36); MEAN CORPUSCULAR VOLUME 93 FL (80-99); MEAN PLATELET VOLUME 10.5 FL (7.4-10.4); MONOCYTES # (AUTO) 1.3 X 10^3 (0.0-1.0); MONOCYTES % (AUTO) 6 % (0-12); NEUTROPHILS # (AUTO) 17.7 X 10^3 (1.8-7.8); NEUTROPHILS % (AUTO) 85 % (42-75); PLATELET COUNT 145 10^3/uL (130-400); WHITE BLOOD COUNT 20.9 10^3/uL (4.3-11.0)
[2019-06-02 04:01] LABS: CALCIUM 7.3 MG/DL (8.5-10.1); CREATININE SERUM 1.62 MG/DL (0.60-1.30); PHOSPHORUS 2.5 MG/DL (2.3-4.7); POTASSIUM 3.1 MMOL/L (3.6-5.0)
[2019-06-02] MEDS ORDERED: PIPERACILLIN/TAZOBACTAM (BULK) 4.5 GM in NS (IVPB) 100 ML IV SCH (05:00)
--- NOTE | 2019-06-02 05:15 | Pulmonary Progress Note ---
Subjective Time Seen by a Provider: 06:55 Subjective/Events-last exam Pt is doing better. Sepsis Event Evaluation Height, Weight, BMI Height: 5'2.00" Weight: 200lbs. 0.0oz. 90.489954pw; 38.69 BMI Method: Focused Exam Lactate Level 05/31/19 01:30: Lactic Acid Level 1.37 05/31/19 08:53: Lactic Acid Level 1.95 05/31/19 12:17: Lactic Acid Level 1.10 Exam Exam Vital Signs Date Time Temp Pulse Resp B/P (MAP) Pulse Ox O2 Delivery O2 Flow Rate FiO2 06/02/19 05:00 85 20 155/87 (109) 93 Nasal Cannula 2.00 06/02/19 04:00 80 23 142/73 (96) 93 Nasal Cannula 2.00 06/02/19 03:00 81 20 139/86 (103) 97 Nasal Cannula 2.00 06/02/19 02:00 86 17 135/89 (104) 97 Nasal Cannula 4.00 06/02/19 01:15 Nasal Cannula 4.00 06/02/19 01:12 96 Nasal Cannula 4.00 06/02/19 01:07 93 Vapotherm 15.00 35 06/02/19 01:00 83 06/02/19 01:00 83 18 137/72 (93) 93 Vapotherm 19.00 35.00 06/02/19 00:00 Vapotherm 19.00 40 06/02/19 00:00 86 17 135/81 (99) 93 Vapotherm 19.00 35.00 06/01/19 23:00 84 17 122/80 (94) 95 Vapotherm 19.00 35.00 06/01/19 22:00 77 16 112/66 (81) 92 Vapotherm 19.00 35.00 06/01/19 21:00 80 16 120/61 (80) 93 Vapotherm 19.00 35.00 06/01/19 20:57 94 Vapotherm 19.00 40 06/01/19 20:00 Vapotherm 19.00 40 06/01/19 20:00 81 16 101/65 (77) 94 Vapotherm 19.00 40.00 06/01/19 19:38 36.3 80 20 125/70 (88) 93 Vapotherm 19.00 40.00 06/01/19 19:00 78 16 130/65 (86) 94 Vapotherm 20.00 40.00 06/01/19 19:00 78 06/01/19 18:59 93 Vapotherm 20.00 40 06/01/19 18:00 72 16 131/65 (87) 93 Vapotherm 20.00 40.00 06/01/19 17:00 73 15 132/75 (94) 94 Vapotherm 20.00 40.00 06/01/19 16:00 70 15 122/70 (87) 95 Vapotherm 20.00 40.00 06/01/19 15:40 36.3 70 16 123/76 95 Vapotherm 40 06/01/19 15:00 73 16 120/67 (84) 95 Vapotherm 20.00 40.00 06/01/19 14:00 71 17 113/61 (78) 95 Vapotherm 20.00 40.00 06/01/19 14:00 36.3 73 18 113/61 96 Vapotherm 40 06/01/19 13:50 36.4 71 15 130/68 95 Vapotherm 40 06/01/19 13:38 36.2 71 16 126/69 94 Vapotherm 40 06/01/19 13:00 70 15 119/59 (79) 96 Vapotherm 20.00 40.00 06/01/19 13:00 36.4 06/01/19 12:32 78 06/01/19 12:00 Vapotherm 40 06/01/19 12:00 73 15 101/60 (74) 96 Vapotherm 20.00 40.00 06/01/19 11:45 36.2 06/01/19 11:36 Vapotherm 20.00 40.00 06/01/19 11:00 80 12 95/56 (69) 96 Vapotherm 30.00 50.00 06/01/19 10:52 Vapotherm 30.00 50.00 06/01/19 10:00 82 36 111/67 (82) 97 Mechanical Ventilator 30.00 06/01/19 09:00 63 17 116/61 (79) 94 Mechanical Ventilator 30.00 06/01/19 08:00 64 12 106/60 (75) 94 Mechanical Ventilator 30.00 06/01/19 08:00 Mechanical Ventilator 45 06/01/19 07:46 36.0 62 18 110/58 (75) 90 Mechanical Ventilator 30.00 06/01/19 07:00 61 06/01/19 06:19 Mechanical Ventilator 30.00 06/01/19 06:16 53 20 100 35 06/01/19 06:00 56 20 106/57 (73) 100 Mechanical Ventilator 35.00 I & O 06/02/19 07:00 Intake Total 1745 ml Output Total 400 ml Balance 1345 ml Height & Weight Height: 5'2.00" Weight: 200lbs. 0.0oz. 90.774461in; 38.69 BMI Method: General Appearance: Mild Distress, Other (uncomfortable) HEENT: Other (ET tube in place) Neck: Normal Inspection Respiratory: Lungs Clear, Normal Breath Sounds, No Respiratory Distress Cardiovascular: Regular Rate, Rhythm, No Edema, No Murmur Capillary Refill: Less Than 3 Seconds Gastrointestinal: soft, other (colostomy edematous and some liquid output. incision c/d/i) Extremity: Normal Inspection, Non Tender Neurologic/Psychiatric: Alert Skin: Normal Color, Warm/Dry Lymphatic: No Adenopathy Results Lab Laboratory Tests 05/31/19 07:15 05/31/19 08:53 05/31/19 12:17 06/01/19 03:30 06/02/19 03:40 Assessment/Plan Assessment/Plan Acute respiratory failure -s/p vent PNA LLL -Rocephin and Flagyl auto d/c'd and WBC is up to 20 -Will start Zosyn x 7days for pneumonia -Repan culture New onset Afib RVR - now converted -Amio Cardiomyopathy EF 25% with hypotension -Currently on Dopamine Anemia with hypotension, Cardiomyopathy, and renal failure Acute sigmoid perforation s/p surgical repair - Eraxis Hypotension with intravascular dehydration -Aggressive IVF -Currently Dopamine -Repeat munoz cultures Acute renal failure -Aggressive IVF NSTEMI -Cardiology following Hypothyroid -Change Synthroid to IV with daily dosing for now. Anemia -Monitor Diverticulitis/colitis UTI with klebsiella TANJA MACHADO DO Jun 02, 2019 05:15
[2019-06-02] MEDS: MAGNESIUM 1 GM/100 ML IVPB 100 ML IV SCH (05:43)
[2019-06-02] MEDS: POTASSIUM CL 10MEQ/50ML IVPB 50 ML IV SCH ×5 (05:43→10:51)
[2019-06-02] MEDS: KCL 20 MEQ TAB (K-DUR) PO SCH (05:44)
--- NOTE | 2019-06-02 07:34 | Cardiology Progress Note ---
Subjective Date Seen by Provider: Jun 02, 2019 Time Seen by Provider: 07:31 Subjective/Events-last exam Patient is laying down in bed, lethargic. Complaining of generalized fatigue and loss of energy. Extubated Review of Systems General: No Chills, No Night Sweats; Fatigue, Malaise; No Appetite, No Other HEENT: No Head Aches, No Visual Changes, No Eye Pain, No Ear Pain, No Dysphasia, No Sinus Congestion, No Post Nasal Drip, No Sore Throat, No Other Pulmonary: Dyspnea; No Cough, No Pleuritic Chest Pain, No Other Cardiovascular: Edema; No: Chest Pain, Palpitations, Orthopnea, Paroxysmal Noc. Dyspnea, Lt Headedness, Other Focused Exam Lactate Level 05/31/19 08:53: Lactic Acid Level 1.95 05/31/19 12:17: Lactic Acid Level 1.10 06/02/19 06:45: Lactic Acid Level 2.22*H Lactic Acid Level Laboratory Tests Test 06/02/19 06:45 Lactic Acid Level 2.22 MMOL/L (0.50-2.00) *H Objective-Cardiology Exam Last Set of Vital Signs Vital Signs 06/01/19 06/02/19 06/02/19 06/02/19 19:38 01:07 06:00 06:26 Temp 36.3 Pulse 87 Resp 22 B/P (MAP) 145/98 (114) Pulse Ox 92 O2 Delivery Nasal Cannula O2 Flow Rate 2.00 FiO2 35 Capillary Refill : Less Than 3 SecondsLess Than 3 Seconds I&O Intake and Output 06/01/19 23:59 Intake Total 4195 ml Output Total 700 ml Balance 3495 ml Intake Oral 0 ml IV Total 4195 ml Output Urine Total 550 ml Gastric Drainage Total 150 ml General: Alert, Cooperative, Moderate Distress HEENT: Atraumatic, PERRLA Neck: Supple, No JVD Lungs: Normal Air Movement, Other (Bilateral rhonchi) Heart: Regular Rate, Normal S1, Normal S2 Abdomen: Other (Diminished bowel sounds) Extremities: No Clubbing, No Cyanosis Skin: No Rashes, No Breakdown Neuro: Normal Speech, Sensation Intact Results Lab Laboratory Tests 06/02/19 03:40 A/P-Cardiology Admission Diagnosis Septic shock Type II SC Diverticulitis Hypertension Assessment/Plan Type II myocardial infarction probably secondary to hypoxemia, hypotension and tachycardia, continue to monitor at this time, no changes Status post acute respiratory failure, extubated on June 01, 2019, recovering slowly Pneumonia, started on Zosyn today, increased leukocytosis. Managed by primary care team Transient atrial fibrillation occurred on May 30, 2019, converted to sinus rhythm on amiodarone drip. Still have NG tube. Diverticulitis, small bowel obstruction, perforation and appendicitis, had surgical appendectomy with colon resection and decompression. Hypotensive shock combination between septic and cardiogenic shock, better at this time, borderline hypertensive. Continue to monitor Severe cardiomyopathy with severe left ventricular systolic dysfunction, probably ischemic in nature, cannot tolerate beta blockers, DAVID inhibitor and/or ARB to the hypotension, echo showed ejection fraction 25-30 percent, moderate tricuspid regurgitation, PA 45 mmHg Acute renal failure, receiving IV fluid, continue to monitor renal function History of hypertension, I will start low-dose beta blockers and evaluate tolerance and response History of hyperlipidemia, has been on simvastatin as an outpatient Hypothyroidism contained on levothyroxin Clinical Quality Measures DVT/VTE Risk/Contraindication: Risk Factor Score Per Nursin RFS Level Per Nursing on Admit: 3=High HAL DOUGLAS MD Jun 02, 2019 07:34
[2019-06-02 07:39] LABS: BILIRUBIN,URINE NEGATIVE (NEGATIVE); CLARITY,URINE CLEAR; COLOR,URINE YELLOW; GLUCOSE, URINE (UA) NEGATIVE (NEGATIVE); KETONES,URINE NEGATIVE (NEGATIVE); LEUKOCYTE ESTERASE ,URINE 2+ (NEGATIVE); NITRITE,URINE NEGATIVE (NEGATIVE); PH,URINE 5 (5-9); PROTEIN,URINE 3+ (NEGATIVE); UROBILINOGEN,URINE NORMAL (NORMAL)
[2019-06-02] MEDS ORDERED: PIPERACILLIN/TAZO 4.5 GM/NS 100 ML IV NR ×2 (07:40)
[2019-06-02 07:51] LABS: BACTERIA,URINE MODERATE /HPF
[2019-06-02] MEDS: ANIDULAFUNGIN INJECTION 100 MG in NS (IVPB) 100 ML IV SCH (08:06)
[2019-06-02] MEDS: LEVOTHYROXINE 100 MCG INJ (SYNTHROID) VIAL IV SCH (08:17)
[2019-06-02] MEDS ORDERED: NS IV 1000 ML 1,000 ML IV ONE (08:30)
[2019-06-02] MEDS: PANTOPRAZOLE 40 MG (PROTONIX) VIAL IV SCH (09:01)
[2019-06-02] MEDS: DOPamine DRIP 250 ML IV SCH (09:10)
--- NOTE | 2019-06-02 10:57 | Diagnostic Imaging Report ---
EXAMINATION: Portable semierect AP chest at 4:05 AM INDICATION: Dyspnea The cardiomegaly noted on the prior exam of 06/01/2019 is again evident and no different. There is still atelectasis/infiltrate in both lung bases although the density in the left infrahilar region seen on the prior study has diminished. The upper lungs remain clear. The mediastinum is not widened. The osseous structures are intact. In the interval since the previous exam, the patient has been extubated. The central venous catheter on the right and the NG line are still present. IMPRESSION: 1. The appearance of the chest has improved somewhat as the left infrahilar region is better aerated. There is still atelectasis/infiltrate involving both lung bases. 2. The patient has been extubated. Dictated by: Dictated on workstation # [id number]
[2019-06-02] MEDS ORDERED: fentaNYL INJECTION 1,000 MCG in NS (IVPB) 80 ML IV SCH (11:00)
--- NOTE | 2019-06-02 11:17 | Progress Note - Surgery ---
Subjective Date Seen by a Provider: Jun 02, 2019 Time Seen by a Provider: 11:12 Subjective/Events-last exam Patient extubated. No significant colostomy output. 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 Urine output low, but improving slightly. Lactic slightly increased. LLL pneumonia. WBC slightly up. Focused Exam Lactate Level 05/31/19 12:17: Lactic Acid Level 1.10 06/02/19 06:45: Lactic Acid Level 2.22*H 06/02/19 09:25: Lactic Acid Level 2.29*H Lactic Acid Level Laboratory Tests Test 06/02/19 09:25 Lactic Acid Level 2.29 MMOL/L (0.50-2.00) *H Objective Exam Vital Signs Date Time Temp Pulse Resp B/P (MAP) Pulse Ox O2 Delivery O2 Flow Rate FiO2 06/02/19 11:00 89 38 149/89 (109) 93 Nasal Cannula 2.00 06/02/19 10:00 81 147/100 (116) 95 Nasal Cannula 2.00 06/02/19 09:00 86 25 158/84 (108) 93 Nasal Cannula 2.00 06/02/19 08:00 91 29 93 Nasal Cannula 2.00 06/02/19 07:00 85 06/02/19 07:00 83 156/89 (111) 92 Nasal Cannula 2.00 06/02/19 06:26 92 Nasal Cannula 2.00 06/02/19 06:00 87 22 145/98 (114) 93 Nasal Cannula 2.00 06/02/19 05:00 85 20 155/87 (109) 93 Nasal Cannula 2.00 06/02/19 04:00 80 23 142/73 (96) 93 Nasal Cannula 2.00 06/02/19 03:00 81 20 139/86 (103) 97 Nasal Cannula 2.00 06/02/19 02:00 86 17 135/89 (104) 97 Nasal Cannula 4.00 06/02/19 01:15 Nasal Cannula 4.00 06/02/19 01:12 96 Nasal Cannula 4.00 06/02/19 01:07 93 Vapotherm 15.00 35 06/02/19 01:00 83 06/02/19 01:00 83 18 137/72 (93) 93 Vapotherm 19.00 35.00 06/02/19 00:00 Vapotherm 19.00 40 06/02/19 00:00 86 17 135/81 (99) 93 Vapotherm 19.00 35.00 06/01/19 23:00 84 17 122/80 (94) 95 Vapotherm 19.00 35.00 06/01/19 22:00 77 16 112/66 (81) 92 Vapotherm 19.00 35.00 06/01/19 21:00 80 16 120/61 (80) 93 Vapotherm 19.00 35.00 06/01/19 20:57 94 Vapotherm 19.00 40 06/01/19 20:00 Vapotherm 19.00 40 06/01/19 20:00 81 16 101/65 (77) 94 Vapotherm 19.00 40.00 06/01/19 19:38 36.3 80 20 125/70 (88) 93 Vapotherm 19.00 40.00 06/01/19 19:00 78 16 130/65 (86) 94 Vapotherm 20.00 40.00 06/01/19 19:00 78 06/01/19 18:59 93 Vapotherm 20.00 40 06/01/19 18:00 72 16 131/65 (87) 93 Vapotherm 20.00 40.00 06/01/19 17:00 73 15 132/75 (94) 94 Vapotherm 20.00 40.00 06/01/19 16:00 70 15 122/70 (87) 95 Vapotherm 20.00 40.00 06/01/19 15:40 36.3 70 16 123/76 95 Vapotherm 40 06/01/19 15:00 73 16 120/67 (84) 95 Vapotherm 20.00 40.00 06/01/19 14:00 71 17 113/61 (78) 95 Vapotherm 20.00 40.00 06/01/19 14:00 36.3 73 18 113/61 96 Vapotherm 40 06/01/19 13:50 36.4 71 15 130/68 95 Vapotherm 40 06/01/19 13:38 36.2 71 16 126/69 94 Vapotherm 40 06/01/19 13:00 70 15 119/59 (79) 96 Vapotherm 20.00 40.00 06/01/19 13:00 36.4 06/01/19 12:32 78 06/01/19 12:00 Vapotherm 40 06/01/19 12:00 73 15 101/60 (74) 96 Vapotherm 20.00 40.00 06/01/19 11:45 36.2 06/01/19 11:36 Vapotherm 20.00 40.00 I & O 06/02/19 07:00 Intake Total 2745 ml Output Total 700 ml Balance 2045 ml Capillary Refill : Less Than 3 SecondsLess Than 3 Seconds General Appearance: No Apparent Distress, Other (uncomfortable) HEENT: PERRL/EOMI, Other (ET tube in place) Neck: Normal Inspection Respiratory: Chest Non Tender, No Accessory Muscle Use, No Respiratory Distress Cardiovascular: Regular Rate, Rhythm, No Edema, No Murmur Gastrointestinal: soft, other (colostomy edematous and some liquid output. incision c/d/i, incsional tenderness) Extremity: Normal Inspection, Non Tender, Swelling Neurologic/Psychiatric: Alert; No Oriented x3 Skin: Normal Color, Warm/Dry Lymphatic: No Adenopathy Results Lab Laboratory Tests 06/01/19 18:20: Triglycerides Level 104 06/02/19 03:40: White Blood Count 20.9H, Red Blood Count 3.03L, Hemoglobin 9.0L, Hematocrit 28L, Mean Corpuscular Volume 93, Mean Corpuscular Hemoglobin 30, Mean Corpuscular Hemoglobin Concent 32, Red Cell Distribution Width 16.0H, Platelet Count 145, Mean Platelet Volume 10.5H, Neutrophils (%) (Auto) 85H, Lymphocytes (%) (Auto) 9L, Monocytes (%) (Auto) 6, Eosinophils (%) (Auto) 0, Basophils (%) (Auto) 0, Neutrophils # (Auto) 17.7H, Lymphocytes # (Auto) 1.8, Monocytes # (Auto) 1.3H, Eosinophils # (Auto) 0.1, Basophils # (Auto) 0.0, Sodium Level 146H, Potassium Level 3.1L, Chloride Level 103, Carbon Dioxide Level 31, Anion Gap 12, Blood Urea Nitrogen 32H, Creatinine 1.62H, Estimat Glomerular Filtration Rate 31, BUN/Creatinine Ratio 20, Glucose Level 147H, Calcium Level 7.3L, Phosphorus Level 2.5, Magnesium Level 2.0, B-Type Natriuretic Peptide 1421.4H 06/02/19 06:45: Lactic Acid Level 2.22*H 06/02/19 07:25: Urine Color YELLOW, Urine Clarity CLEAR, Urine pH 5, Urine Specific [place] 1.020, Urine Protein 3+H, Urine Glucose (UA) NEGATIVE, Urine Ketones NEGATIVE, Urine Nitrite NEGATIVE, Urine Bilirubin NEGATIVE, Urine Urobilinogen NORMAL, Urine Leukocyte Esterase 2+H, Urine RBC (Auto) 3+H, Urine RBC NONE, Urine WBC 10-25H, Urine Squamous Epithelial Cells NONE, Urine Crystals NONE, Urine Bacteria MODERATEH, Urine Casts NONE, Urine Mucus SMALLH, Urine Culture Indicated YES 06/02/19 09:25: Lactic Acid Level 2.29*H Microbiology 05/31/19 Blood Culture - Preliminary, Resulted No growth 05/30/19 Gram Stain - Final, Complete 05/30/19 Sputum Culture - Final, Complete Usual upper respiratory pau 05/31/19 Urine Culture - Final, Complete NO GROWTH Assessment/Plan Assessment/Plan Assessment/Plan s/p sigmoid resection end colostomy, appendectomy, manual decompression small bowel, central line placement perforated sigmoid colon, appendicitis, small bowel obstruction Nstemi Cardiomyopathy with EF of 25% Acute renal failure Acute respiratory failure UTI LLL pneumonia extubated continue abx continue medical management Leave NG tube at this time still guarded prognosis villalba for accurate i/0- slightly improving today elevated lactic -fluid Clinical Quality Measures DVT/VTE Risk/Contraindication: Risk Factor Score Per Nursin RFS Level Per Nursing on Admit: 3=High NAJMA MALCOLM DO Jun 02, 2019 11:17
[2019-06-02] MEDS: meTOprolol 5 MG/5 ML (LOPRESSOR) VIAL IV SCH ×2 (11:26→18:00)
[2019-06-02] MEDS: ONDANSETRON 4 MG/2 ML (SDV) Z0FRAN IV PRN (11:29)
--- NOTE | 2019-06-02 12:03 | Progress Note - Surgery ---
Subjective Date Seen by a Provider: Jun 02, 2019 Time Seen by a Provider: 11:12 Subjective/Events-last exam Patient was extubated, Laying in bed WBC increased from 19.3 to 20.9. Lactic acid 2.22. Focused Exam Lactate Level 05/31/19 12:17: Lactic Acid Level 1.10 06/02/19 06:45: Lactic Acid Level 2.22*H 06/02/19 09:25: Lactic Acid Level 2.29*H Lactic Acid Level Laboratory Tests Test 06/02/19 09:25 Lactic Acid Level 2.29 MMOL/L (0.50-2.00) *H Objective Exam Vital Signs Date Time Temp Pulse Resp B/P (MAP) Pulse Ox O2 Delivery O2 Flow Rate FiO2 06/02/19 11:27 36.4 89 28 158/89 (112) 93 06/02/19 11:00 89 38 149/89 (109) 93 Nasal Cannula 2.00 06/02/19 10:00 81 147/100 (116) 95 Nasal Cannula 2.00 06/02/19 09:00 86 25 158/84 (108) 93 Nasal Cannula 2.00 06/02/19 08:00 91 29 93 Nasal Cannula 2.00 06/02/19 07:00 85 06/02/19 07:00 83 156/89 (111) 92 Nasal Cannula 2.00 06/02/19 06:26 92 Nasal Cannula 2.00 06/02/19 06:00 87 22 145/98 (114) 93 Nasal Cannula 2.00 06/02/19 05:00 85 20 155/87 (109) 93 Nasal Cannula 2.00 06/02/19 04:00 80 23 142/73 (96) 93 Nasal Cannula 2.00 06/02/19 03:00 81 20 139/86 (103) 97 Nasal Cannula 2.00 06/02/19 02:00 86 17 135/89 (104) 97 Nasal Cannula 4.00 06/02/19 01:15 Nasal Cannula 4.00 06/02/19 01:12 96 Nasal Cannula 4.00 06/02/19 01:07 93 Vapotherm 15.00 35 06/02/19 01:00 83 06/02/19 01:00 83 18 137/72 (93) 93 Vapotherm 19.00 35.00 06/02/19 00:00 Vapotherm 19.00 40 06/02/19 00:00 86 17 135/81 (99) 93 Vapotherm 19.00 35.00 06/01/19 23:00 84 17 122/80 (94) 95 Vapotherm 19.00 35.00 06/01/19 22:00 77 16 112/66 (81) 92 Vapotherm 19.00 35.00 06/01/19 21:00 80 16 120/61 (80) 93 Vapotherm 19.00 35.00 06/01/19 20:57 94 Vapotherm 19.00 40 06/01/19 20:00 Vapotherm 19.00 40 06/01/19 20:00 81 16 101/65 (77) 94 Vapotherm 19.00 40.00 06/01/19 19:38 36.3 80 20 125/70 (88) 93 Vapotherm 19.00 40.00 06/01/19 19:00 78 16 130/65 (86) 94 Vapotherm 20.00 40.00 06/01/19 19:00 78 06/01/19 18:59 93 Vapotherm 20.00 40 06/01/19 18:00 72 16 131/65 (87) 93 Vapotherm 20.00 40.00 06/01/19 17:00 73 15 132/75 (94) 94 Vapotherm 20.00 40.00 06/01/19 16:00 70 15 122/70 (87) 95 Vapotherm 20.00 40.00 06/01/19 15:40 36.3 70 16 123/76 95 Vapotherm 40 06/01/19 15:00 73 16 120/67 (84) 95 Vapotherm 20.00 40.00 06/01/19 14:00 71 17 113/61 (78) 95 Vapotherm 20.00 40.00 06/01/19 14:00 36.3 73 18 113/61 96 Vapotherm 40 06/01/19 13:50 36.4 71 15 130/68 95 Vapotherm 40 06/01/19 13:38 36.2 71 16 126/69 94 Vapotherm 40 06/01/19 13:00 70 15 119/59 (79) 96 Vapotherm 20.00 40.00 06/01/19 13:00 36.4 06/01/19 12:32 78 06/01/19 12:00 Vapotherm 40 06/01/19 12:00 73 15 101/60 (74) 96 Vapotherm 20.00 40.00 I & O 06/02/19 07:00 Intake Total 2745 ml Output Total 700 ml Balance 2045 ml Capillary Refill : Less Than 3 SecondsLess Than 3 Seconds General Appearance: No Apparent Distress, Other (uncomfortable) HEENT: PERRL/EOMI, Other (ET tube in place) Neck: Normal Inspection Respiratory: Chest Non Tender, No Accessory Muscle Use, No Respiratory Distress Cardiovascular: Regular Rate, Rhythm, No Edema, No Murmur Gastrointestinal: soft, other (colostomy edematous and some liquid output. incision c/d/i, incsional tenderness) Extremity: Normal Inspection, Non Tender, Swelling Neurologic/Psychiatric: Alert; No Oriented x3 Skin: Normal Color, Warm/Dry Lymphatic: No Adenopathy Results Lab Laboratory Tests 06/01/19 18:20: Triglycerides Level 104 06/02/19 03:40: White Blood Count 20.9H, Red Blood Count 3.03L, Hemoglobin 9.0L, Hematocrit 28L, Mean Corpuscular Volume 93, Mean Corpuscular Hemoglobin 30, Mean Corpuscular Hemoglobin Concent 32, Red Cell Distribution Width 16.0H, Platelet Count 145, Mean Platelet Volume 10.5H, Neutrophils (%) (Auto) 85H, Lymphocytes (%) (Auto) 9L, Monocytes (%) (Auto) 6, Eosinophils (%) (Auto) 0, Basophils (%) (Auto) 0, Neutrophils # (Auto) 17.7H, Lymphocytes # (Auto) 1.8, Monocytes # (Auto) 1.3H, Eosinophils # (Auto) 0.1, Basophils # (Auto) 0.0, Sodium Level 146H, Potassium Level 3.1L, Chloride Level 103, Carbon Dioxide Level 31, Anion Gap 12, Blood Urea Nitrogen 32H, Creatinine 1.62H, Estimat Glomerular Filtration Rate 31, BUN/Creatinine Ratio 20, Glucose Level 147H, Calcium Level 7.3L, Phosphorus Level 2.5, Magnesium Level 2.0, B-Type Natriuretic Peptide 1421.4H 06/02/19 06:45: Lactic Acid Level 2.22*H 06/02/19 07:25: Urine Color YELLOW, Urine Clarity CLEAR, Urine pH 5, Urine Specific [place] 1.020, Urine Protein 3+H, Urine Glucose (UA) NEGATIVE, Urine Ketones NEGATIVE, Urine Nitrite NEGATIVE, Urine Bilirubin NEGATIVE, Urine Urobilinogen NORMAL, Urine Leukocyte Esterase 2+H, Urine RBC (Auto) 3+H, Urine RBC NONE, Urine WBC 10-25H, Urine Squamous Epithelial Cells NONE, Urine Crystals NONE, Urine Bacteria MODERATEH, Urine Casts NONE, Urine Mucus SMALLH, Urine Culture Indicated YES 06/02/19 09:25: Lactic Acid Level 2.29*H 06/02/19 11:37: Glucometer 173H Microbiology 05/31/19 Blood Culture - Preliminary, Resulted No growth 05/30/19 Gram Stain - Final, Complete 05/30/19 Sputum Culture - Final, Complete Usual upper respiratory pau 05/31/19 Urine Culture - Final, Complete NO GROWTH Assessment/Plan Assessment/Plan Assessment/Plan s/p sigmoid resection end colostomy, appendectomy, manual decompression small bowel, central line placement perforated sigmoid colon, appendicitis, small bowel obstruction Nstemi Cardiomyopathy with EF of 25% Acute renal failure Acute respiratory failure UTI LLL pneumonia extubated continue abx continue medical management Leave NG tube at this time still guarded prognosis villalba for accurate i/0- slightly improving today elevated lactic -fluid Clinical Quality Measures DVT/VTE Risk/Contraindication: Risk Factor Score Per Nursin RFS Level Per Nursing on Admit: 3=High MORENITA HERNANDEZ MED STUDEN Jun 02, 2019 12:03
--- NOTE | 2019-06-02 12:08 | Progress Note - Hospitalist ---
Subjective HPI/CC On Admission Date Seen by Provider: Jun 02, 2019 Time Seen by Provider: 09:10 abdominal pain Subjective/Events-last exam She reports being in generalized pain. She denies chest pain and dyspnea. She reports nausea, but no vomiting. She has no other complaints or concerns at this time. Family is present and all questions were answered. Focused Exam Lactate Level 05/31/19 12:17: Lactic Acid Level 1.10 06/02/19 06:45: Lactic Acid Level 2.22*H 06/02/19 09:25: Lactic Acid Level 2.29*H Lactic Acid Level Laboratory Tests Test 06/02/19 09:25 Lactic Acid Level 2.29 MMOL/L (0.50-2.00) *H Objective Exam Vital Signs Vital Signs Date Time Temp Pulse Resp B/P (MAP) Pulse Ox O2 Delivery O2 Flow Rate FiO2 06/02/19 11:27 36.4 89 28 158/89 (112) 93 06/02/19 11:00 Nasal Cannula 2.00 06/02/19 01:07 35 Capillary Refill : Less Than 3 SecondsLess Than 3 Seconds General Appearance: Mild Distress, Obese HEENT: PERRL/EOMI, Pharynx Normal Neck: Normal Inspection, Supple Respiratory: Lungs Clear, Normal Breath Sounds, No Respiratory Distress Cardiovascular: Regular Rate, Rhythm, Systolic Murmur Gastrointestinal: Normal Bowel Sounds, Soft; No Distended, No Guarding; Tenderness Extremity: Normal Inspection, Non Tender, Pedal Edema Neurologic/Psychiatric: Alert; No Disoriented Skin: Normal Color, Warm/Dry Results/Procedures Lab Laboratory Tests 06/02/19 03:40 Patient resulted labs reviewed. Assessment/Plan Assessment and Plan Assess & Plan/Chief Complaint Diverticulitis with perforation Multifactorial shock, resolved -Surgery following, appreciate assistance -Off pressors -Transition from Ceftriaxone and Flagyl to Zosyn for antipseudomonal coverage -Continue Eraxis for antifungal coverage AHRF -Extubated yesterday -Saturating well on nasal cannula AFib with RVR NSTEMI Acute on chronic HFrEF -Cardiology following -Likely type 2 NSTEMI -Continue amiodarone MARIA ANTONIA ATN Lactic acidosis -Cr stable today -Urine output remains low -Continue IV fluids -Continue to monitor -Avoid nephrotoxins Hypernatremia -Transition to 1/2 NS Hypokalemia -Monitor and replace as needed Klebsiella UTI, resolved DVT Prophylaxis: SCDs Diagnosis/Problems Diagnosis/Problems (1) Diverticulitis of intestine with perforation Status: Acute (2) Shock Status: Resolved Resolution Date/Time: 06/02/19 @ 12:08 (3) NSTEMI (non-ST elevation myocardial infarction) Status: Acute (4) HFrEF (heart failure with reduced ejection fraction) (5) Hypophosphatemia Status: Resolved Resolution Date/Time: 06/02/19 @ 12:09 (6) Atrial fibrillation with RVR Status: Acute (7) Acute respiratory failure with hypoxia Status: Acute (8) UTI due to Klebsiella species Status: Resolved Resolution Date/Time: 06/02/19 @ 12:09 (9) Acute on chronic kidney failure Status: Acute Qualifiers: Chronic kidney disease stage: stage 3 (moderate) (10) Hypokalemia Status: Acute (11) Hypernatremia Status: Acute (12) Lactic acidosis Status: Acute (13) ATN (acute tubular necrosis) Clinical Quality Measures DVT/VTE Risk/Contraindication: Risk Factor Score Per Nursin RFS Level Per Nursing on Admit: 3=High MARILUZ MAYORGA MD Jun 02, 2019 12:08
--- NOTE | 2019-06-02 12:13 | NUR ---
PT FENTANYL DRIP D/C'D. THIS RN WASTED 175CC OF FENTANYL WITH IVAN JONES.
[2019-06-02] MEDS: PIPERACILLIN/TAZOBACTAM (BULK) 4.5 GM in NS (IVPB) 100 ML IV SCH ×2 (14:11→21:01)
[2019-06-02] MEDS ORDERED: NS IV 1000 ML 1,000 ML IV SCH (14:15)
[2019-06-02 15:27] LABS: CALCIUM 6.9 MG/DL (8.5-10.1); CREATININE SERUM 1.45 MG/DL (0.60-1.30); MAGNESIUM 1.9 MG/DL (1.6-2.4); PHOSPHORUS 2.3 MG/DL (2.3-4.7); POTASSIUM 3.8 MMOL/L (3.6-5.0)
[2019-06-02] MEDS ORDERED: 1/2 NS IV SOLUTION 1,000 ML IV SCH (16:45)
--- NOTE | 2019-06-02 18:54 | NUR ---
THIS RN CONTACTED DR. MALCOLM REGARDING PT PAIN. PT EDEMA IN HANDS HAVE INCREASED AND IS NOT ABLE TO PUSH THE ASSISTANT MEDIA PLANNER BUTTON. DR. MALCOLM GAVE ORDER FOR DILAUDID 0.5-1MG IV Q4HR PRN FOR PAIN AND TO D/C ASSISTANT MEDIA PLANNER PUMP. EMAR UPDATED. DR. MALCOLM STATED TO CONSULT DR. MACHADO ON GIVING LASIX DUE TO THE INCREASED SWELLING AND WEEPING. DR. MACHADO STATED TO STOP FLUIDS, FLUSH HOLT AND CHECK BLADDER SCAN AND UPDATE HIM WITH RESULTS.
[2019-06-02] MEDS: HYDROmorphone 2 MG/ML VIAL (DILAUDID) IV PRN (19:25)
[2019-06-03] VITALS (25 sets, daily range): BP systolic 116–165; BP diastolic 78–105
[2019-06-03] MEDS: inSUlin ASPART (NovoLOG) 1 UNIT/0.01 ML (CHARGE PER UNIT) SC SCH ×5 (00:14→23:40)
[2019-06-03] MEDS: meTOprolol 5 MG/5 ML (LOPRESSOR) VIAL IV SCH ×5 (00:16→23:41)
[2019-06-03] MEDS: HYDROmorphone 2 MG/ML VIAL (DILAUDID) IV PRN ×4 (00:17→19:30)
[2019-06-03 03:51] LABS: BASOPHILS % (AUTO) 0 % (0-10); EOSINOPHILS % (AUTO) 0 % (0-10); HEMATOCRIT 29 % (35-52); HEMOGLOBIN 9.1 G/DL (11.5-16.0); LYMPHOCYTES % (AUTO) 10 % (12-44); MEAN CORPUSCULAR HEMOGLOBIN 30 PG (25-34); MEAN CORPUSCULAR HGB CONC 32 G/DL (32-36); MEAN CORPUSCULAR VOLUME 95 FL (80-99); MEAN PLATELET VOLUME 11.4 FL (7.4-10.4); MONOCYTES # (AUTO) 1.1 X 10^3 (0.0-1.0); MONOCYTES % (AUTO) 6 % (0-12); NEUTROPHILS # (AUTO) 15.7 X 10^3 (1.8-7.8); NEUTROPHILS % (AUTO) 84 % (42-75); PLATELET COUNT 142 10^3/uL (130-400); RED CELL DISTRIBUTION WIDTH 16.1 % (10.0-14.5); WHITE BLOOD COUNT 18.8 10^3/uL (4.3-11.0)
[2019-06-03 04:12] LABS: CALCIUM 7.4 MG/DL (8.5-10.1); CREATININE SERUM 1.59 MG/DL (0.60-1.30); MAGNESIUM 2.1 MG/DL (1.6-2.4); PHOSPHORUS 3.3 MG/DL (2.3-4.7)
[2019-06-03] MEDS: MAGNESIUM 1 GM/100 ML IVPB 100 ML IV SCH (04:15)
[2019-06-03] MEDS: POTASSIUM CL 10MEQ/50ML IVPB 50 ML IV SCH (04:15)
[2019-06-03] MEDS: KCL 20 MEQ TAB (K-DUR) PO SCH (04:15)
[2019-06-03] MEDS ORDERED: hydrALAZINE (APESOLINE) 20 MG/ML VIAL IV PRN (05:00)
[2019-06-03] MEDS ORDERED: LACTATED RINGERS 1,000 ML IV SCH ×2 (05:00→19:30)
[2019-06-03] MEDS: PIPERACILLIN/TAZOBACTAM (BULK) 4.5 GM in NS (IVPB) 100 ML IV SCH ×3 (05:19→21:38)
[2019-06-03] MEDS: D5 1/2 NS 1000 ML IV SOLUTION 1,000 ML IV SCH ×3 (05:19→21:38)
--- NOTE | 2019-06-03 07:03 | Pulmonary Progress Note ---
Subjective Time Seen by a Provider: 07:05 Subjective/Events-last exam Pt has had decreased UO. Only requiring 2 liters of oxygen. BP has improved. Sepsis Event Evaluation Height, Weight, BMI Height: 5'2.00" Weight: 200lbs. 0.0oz. [id number]; 38.69 BMI Method: Focused Exam Lactate Level 05/31/19 12:17: Lactic Acid Level 1.10 06/02/19 06:45: Lactic Acid Level 2.22*H 06/02/19 09:25: Lactic Acid Level 2.29*H Exam Exam Vital Signs Date Time Temp Pulse Resp B/P (MAP) Pulse Ox O2 Delivery O2 Flow Rate FiO2 06/03/19 06:00 66 15 121/87 (98) 94 Nasal Cannula 2.00 06/03/19 05:00 75 20 127/85 (99) 94 Nasal Cannula 2.00 06/03/19 04:11 36.8 Nasal Cannula 2.00 06/03/19 04:00 72 18 133/90 (104) 93 Nasal Cannula 2.00 06/03/19 04:00 94 Nasal Cannula 2.00 06/03/19 03:00 77 20 124/81 (95) 93 Nasal Cannula 2.00 06/03/19 02:00 71 16 122/79 (93) 92 Nasal Cannula 2.00 06/03/19 01:02 73 06/03/19 01:00 71 21 138/85 (102) 93 Nasal Cannula 2.00 06/03/19 00:25 93 Nasal Cannula 2.00 06/03/19 00:10 36.2 Nasal Cannula 2.00 06/03/19 00:00 84 25 151/101 (118) 91 Nasal Cannula 2.00 06/02/19 23:00 80 23 144/92 (109) 94 Nasal Cannula 2.00 06/02/19 22:00 81 23 151/90 (110) 93 Nasal Cannula 2.00 06/02/19 21:00 79 25 140/103 (115) 93 Nasal Cannula 2.00 06/02/19 20:00 81 27 131/78 (95) 92 Nasal Cannula 2.00 06/02/19 19:46 36.0 06/02/19 19:45 92 Nasal Cannula 2.00 06/02/19 19:40 Nasal Cannula 2.00 06/02/19 19:01 84 06/02/19 19:00 84 10 152/92 (112) 92 Nasal Cannula 2.00 06/02/19 18:00 89 30 156/88 (110) 92 Nasal Cannula 2.00 06/02/19 17:00 89 29 168/113 (131) 92 Nasal Cannula 2.00 06/02/19 16:00 92 35 157/89 (111) 92 Nasal Cannula 2.00 06/02/19 15:44 35.9 06/02/19 15:00 85 29 156/93 (114) 91 Nasal Cannula 2.00 06/02/19 14:00 84 152/94 (113) 93 Nasal Cannula 2.00 06/02/19 13:00 86 29 166/91 (116) 93 Nasal Cannula 2.00 06/02/19 12:25 78 06/02/19 12:00 96 Room Air 2.00 06/02/19 12:00 77 31 156/79 (104) 93 Nasal Cannula 2.00 06/02/19 11:27 36.4 89 28 158/89 (112) 93 06/02/19 11:00 89 38 149/89 (109) 93 Nasal Cannula 2.00 06/02/19 10:00 81 147/100 (116) 95 Nasal Cannula 2.00 06/02/19 09:00 86 25 158/84 (108) 93 Nasal Cannula 2.00 06/02/19 08:00 91 29 93 Nasal Cannula 2.00 06/02/19 08:00 96 Room Air 2.00 06/02/19 07:00 85 06/02/19 07:00 83 156/89 (111) 92 Nasal Cannula 2.00 I & O 06/03/19 07:00 Intake Total 5850 ml Output Total 759 ml Balance 5091 ml Height & Weight Height: 5'2.00" Weight: 200lbs. 0.0oz. [id number]; 38.69 BMI Method: General Appearance: Mild Distress, Other (uncomfortable) HEENT: Other (ET tube in place) Neck: Normal Inspection Respiratory: Lungs Clear, Normal Breath Sounds, No Respiratory Distress Cardiovascular: Regular Rate, Rhythm, No Edema, No Murmur Capillary Refill: Less Than 3 Seconds Gastrointestinal: soft, other (colostomy edematous and some liquid output. incision c/d/i) Extremity: Normal Inspection, Non Tender Neurologic/Psychiatric: Alert Skin: Normal Color, Warm/Dry Lymphatic: No Adenopathy Results Lab Laboratory Tests 06/02/19 03:40 06/02/19 14:55 06/03/19 03:23 Assessment/Plan Assessment/Plan Acute respiratory failure -s/p vent PNA LLL -Rocephin and Flagyl auto d/c'd and WBC is up to 20 -Continue Zosyn x 7days started 04/02 for pneumonia -Repan culture pending New onset Afib RVR - now converted -Amio Cardiomyopathy EF 25% with hypotension - Dopamine is now off -PT is doing well pulmonary hill. Acute renal failure with decreased UO -Continue IVF and monitor UO -Hold off on lasix for now. PT is only requiring 2 liters of oxygen -Avoid nephrotoxic meds Hypoalbuminemia secondary to protein shelli malnutrition -Diet per surgery Acute sigmoid perforation s/p surgical repair - Eraxis NSTEMI -Cardiology following Hypothyroid -Change Synthroid to IV with daily dosing for now. Anemia -Monitor Diverticulitis/colitis UTI with klebsiella TANJA MACHADO DO Jun 03, 2019 07:03
--- NOTE | 2019-06-03 07:36 | Diagnostic Imaging Report ---
INDICATION: Dyspnea. COMPARISON: 06/02/2019 FINDINGS: Single frontal radiographic view of the chest was obtained and demonstrates stable cardiac silhouette and pulmonary vasculature. Gastric tube and right internal jugular central venous catheter again identified and appear to be in stable position. Lungs continue to show probable small bibasilar effusions with associated bibasilar patchy airspace disease. Overall, aeration is also stable. No pneumothorax is seen on either side. IMPRESSION: 1. Stable exam of the chest showing mild cardiomegaly with probable small bibasilar effusions and associated bibasilar atelectasis. 2. Lines and tubes as above. Dictated by: Dictated on workstation # [id number]
--- NOTE | 2019-06-03 08:01 | Cardiology Progress Note ---
Subjective Date Seen by Provider: Jun 03, 2019 Time Seen by Provider: 07:59 Subjective/Events-last exam Patient is laying down in bed, on oxygen mask, short of breath, lethargic. Had poor urine output overnight, given 1 L of fluid Review of Systems General: No Chills, No Night Sweats; Fatigue, Malaise; No Appetite, No Other HEENT: No Head Aches, No Visual Changes, No Eye Pain, No Ear Pain, No Dysphasia, No Sinus Congestion, No Post Nasal Drip, No Sore Throat, No Other Pulmonary: Dyspnea; No Cough, No Pleuritic Chest Pain, No Other Cardiovascular: Edema; No: Chest Pain, Palpitations, Orthopnea, Paroxysmal Noc. Dyspnea, Lt Headedness, Other Focused Exam Lactate Level 05/31/19 12:17: Lactic Acid Level 1.10 06/02/19 06:45: Lactic Acid Level 2.22*H 06/02/19 09:25: Lactic Acid Level 2.29*H Objective-Cardiology Exam Last Set of Vital Signs Vital Signs 06/02/19 06/03/19 06/03/19 01:07 04:11 06:00 Temp 36.8 Pulse 66 Resp 15 B/P (MAP) 121/87 (98) Pulse Ox 94 O2 Delivery Nasal Cannula O2 Flow Rate 2.00 FiO2 35 Capillary Refill : Less Than 3 SecondsLess Than 3 Seconds I&O Intake and Output 06/03/19 00:00 Intake Total 5670 ml Output Total 725 ml Balance 4945 ml Intake Oral 0 ml IV Total 5670 ml Output Urine Total 475 ml Gastric Drainage Total 250 ml General: Alert, Cooperative, Moderate Distress HEENT: Atraumatic, PERRLA Neck: Supple, No JVD Lungs: Normal Air Movement, Other (Bilateral rhonchi) Heart: Regular Rate, Normal S1, Normal S2 Abdomen: Other (Diminished bowel sounds) Extremities: No Clubbing, No Cyanosis Skin: No Rashes, No Breakdown Neuro: Normal Speech, Sensation Intact Results Lab Laboratory Tests 06/02/19 14:55 06/03/19 03:23 A/P-Cardiology Admission Diagnosis Septic shock Type II DC Diverticulitis Hypertension Assessment/Plan Type II myocardial infarction probably secondary to hypoxemia, hypotension and tachycardia, conservative management. Continue to monitor Oliguria, acute renal failure on chronic renal insufficiency, received a liter of fluid challenge. Still low urine output, had peripheral edema. Continue to monitor Status post acute respiratory failure, extubated on June 01, 2019, currently on a mask, still having shortness of breath Pneumonia, receiving antibiotic and managed by primary care team Transient atrial fibrillation occurred on May 30, 2019, converted to sinus rhythm on amiodarone drip. Still have NG tube. Diverticulitis, small bowel obstruction, perforation and appendicitis, had surgical appendectomy with colon resection and decompression. Hypotensive shock combination between septic and cardiogenic shock, better at this time, borderline hypertensive. Continue to monitor Severe cardiomyopathy with severe left ventricular systolic dysfunction, probably ischemic in nature, cannot tolerate beta blockers, DAVID inhibitor and/or ARB to the hypotension, echo showed ejection fraction 25-30 percent, moderate tricuspid regurgitation, PA 45 mmHg History of hypertension, continue to monitor blood pressure. History of hyperlipidemia, has been on simvastatin as an outpatient Hypothyroidism contained on levothyroxin Clinical Quality Measures DVT/VTE Risk/Contraindication: Risk Factor Score Per Nursin RFS Level Per Nursing on Admit: 3=High HAL DOUGLAS MD Jun 03, 2019 08:01
--- NOTE | 2019-06-03 08:25 | Physical Therapy Progress Note ---
Therapy Progress Note Due to transfer to ICU, PT will require new orders to continue with therapy. RN notified. RYLAND APONTE PT Jun 03, 2019 08:25
--- NOTE | 2019-06-03 08:37 | Progress Note ---
Subjective Subjective Date Seen by Provider: Jun 03, 2019 Time Seen by Provider: 08:35 78 yo F over the weekend- she was extubated, received 1 unit pRBC. Urine output has not been good. Creatinine has worsened a little bit. Pt is conversing- Understandably, She reports she is not feeling very well but currently not having as much nausea. NG tube still in place. Review of Systems ROS Unable to Obtain: intubated, sedated General: No Chills, No Night Sweats; Fatigue, Malaise; No Appetite, No Other HEENT: No Head Aches, No Visual Changes, No Eye Pain, No Ear Pain, No Dysphasia, No Sinus Congestion, No Post Nasal Drip, No Sore Throat, No Other Pulmonary: Dyspnea; No Cough, No Pleuritic Chest Pain, No Other Cardiovascular: Edema; No: Chest Pain, Palpitations, Orthopnea, Paroxysmal Noc. Dyspnea, Lt Headedness, Other Gastrointestinal: No: Nausea, Vomiting, Abdominal Pain Genitourinary: No Dysuria Neurological: Weakness All Other Systems Reviewed All Other Systems Reviewed: Yes Objective Exam Vital Signs Vital Signs Date Time Temp Pulse Resp B/P (MAP) Pulse Ox O2 Delivery O2 Flow Rate FiO2 06/03/19 07:00 70 06/03/19 06:00 66 15 121/87 (98) 94 Nasal Cannula 2.00 06/03/19 05:00 75 20 127/85 (99) 94 Nasal Cannula 2.00 06/03/19 04:11 36.8 Nasal Cannula 2.00 06/03/19 04:00 72 18 133/90 (104) 93 Nasal Cannula 2.00 06/03/19 04:00 94 Nasal Cannula 2.00 06/03/19 03:00 77 20 124/81 (95) 93 Nasal Cannula 2.00 06/03/19 02:00 71 16 122/79 (93) 92 Nasal Cannula 2.00 06/03/19 01:02 73 06/03/19 01:00 71 21 138/85 (102) 93 Nasal Cannula 2.00 06/03/19 00:25 93 Nasal Cannula 2.00 06/03/19 00:10 36.2 Nasal Cannula 2.00 06/03/19 00:00 84 25 151/101 (118) 91 Nasal Cannula 2.00 06/02/19 23:00 80 23 144/92 (109) 94 Nasal Cannula 2.00 06/02/19 22:00 81 23 151/90 (110) 93 Nasal Cannula 2.00 06/02/19 21:00 79 25 140/103 (115) 93 Nasal Cannula 2.00 06/02/19 20:00 81 27 131/78 (95) 92 Nasal Cannula 2.00 06/02/19 19:46 36.0 06/02/19 19:45 92 Nasal Cannula 2.00 06/02/19 19:40 Nasal Cannula 2.00 06/02/19 19:01 84 06/02/19 19:00 84 10 152/92 (112) 92 Nasal Cannula 2.00 06/02/19 18:00 89 30 156/88 (110) 92 Nasal Cannula 2.00 06/02/19 17:00 89 29 168/113 (131) 92 Nasal Cannula 2.00 06/02/19 16:00 92 35 157/89 (111) 92 Nasal Cannula 2.00 06/02/19 15:44 35.9 06/02/19 15:00 85 29 156/93 (114) 91 Nasal Cannula 2.00 06/02/19 14:00 84 152/94 (113) 93 Nasal Cannula 2.00 06/02/19 13:00 86 29 166/91 (116) 93 Nasal Cannula 2.00 06/02/19 12:25 78 06/02/19 12:00 96 Room Air 2.00 06/02/19 12:00 77 31 156/79 (104) 93 Nasal Cannula 2.00 06/02/19 11:27 36.4 89 28 158/89 (112) 93 06/02/19 11:00 89 38 149/89 (109) 93 Nasal Cannula 2.00 06/02/19 10:00 81 147/100 (116) 95 Nasal Cannula 2.00 06/02/19 09:00 86 25 158/84 (108) 93 Nasal Cannula 2.00 I & O 06/03/19 07:00 Intake Total 6850 ml Output Total 759 ml Balance 6091 ml General Appearance: Mild Distress, Other (uncomfortable) HEENT: PERRL/EOMI, Other (ET tube in place) Neck: Normal Inspection Respiratory: Lungs Clear, Normal Breath Sounds, No Respiratory Distress Cardiovascular: Regular Rate, Rhythm, No Murmur Gastrointestinal: Normal Bowel Sounds, Soft; No Distended, No Guarding; Tenderness Rectal: Deferred Extremity: Normal Inspection, Non Tender Neurologic/Psychiatric: Alert Skin: Normal Color, Warm/Dry Lymphatic: No Adenopathy Results Lab Laboratory Tests 06/02/19 09:25: Lactic Acid Level 2.29*H 06/02/19 11:37: Glucometer 173H 06/02/19 14:55: Sodium Level 149H, Potassium Level 3.8, Chloride Level 108H, Carbon Dioxide Level 27, Anion Gap 14, Blood Urea Nitrogen 30H, Creatinine 1.45H, Estimat Glomerular Filtration Rate 35, BUN/Creatinine Ratio 21, Glucose Level 143H, Calcium Level 6.9L, Phosphorus Level 2.3, Magnesium Level 1.9 06/03/19 00:13: Glucometer 140H 06/03/19 03:23: White Blood Count 18.8H, Red Blood Count 3.03L, Hemoglobin 9.1L, Hematocrit 29L, Mean Corpuscular Volume 95, Mean Corpuscular Hemoglobin 30, Mean Corpuscular Hemoglobin Concent 32, Red Cell Distribution Width 16.1H, Platelet Count 142, Mean Platelet Volume 11.4H, Neutrophils (%) (Auto) 84H, Lymphocytes (%) (Auto) 10L, Monocytes (%) (Auto) 6, Eosinophils (%) (Auto) 0, Basophils (%) (Auto) 0, Neutrophils # (Auto) 15.7H, Lymphocytes # (Auto) 2.0, Monocytes # (Auto) 1.1H, Eosinophils # (Auto) 0.0, Basophils # (Auto) 0.0, Sodium Level 146H, Potassium Level 4.0, Chloride Level 107, Carbon Dioxide Level 29, Anion Gap 10, Blood Urea Nitrogen 34H, Creatinine 1.59H, Estimat Glomerular Filtration Rate 31, BUN/Creatinine Ratio 21, Glucose Level 137H, Calcium Level 7.4L, Phosphorus Level 3.3, Magnesium Level 2.1 Microbiology 05/31/19 Blood Culture - Preliminary, Resulted No growth 05/30/19 Gram Stain - Final, Complete 05/30/19 Sputum Culture - Final, Complete Usual upper respiratory pau 05/31/19 Urine Culture - Final, Complete NO GROWTH Assessment/Plan Assessment/Plan Admission Dx intractable abdominal pain diverticulitis urinary tract infection Assessment and Plan 05/27/19 IVF, NPO- monitor respiratory status with the IVF. Rechecking labs in the AM continue metronidazole and rocephin- checking blood cultures and urine cultures. 05/28/19- SVT overnight- resolved. WBC still elevated. No fevers since yesterday. Cr still 1.4. Abdominal pain improved compared to admission. 05/29/19- Cr improved to 1.27, WBC back down to 23K- will continue to trend. Temp yesterday evening was 37.9C- Still on metronidazole and ceftriaxone. Urine culture growing gram negative- awaiting antibiotic coverage. Blood cultures negative to date. -will try 5mg ambien to help her sleep tonight. -will add on metoclopramide daily to see if it will help with nausea and stimulate her GI tract to get back to functioning. 05/30/19- ST with PVC. Dr. Hills consulted- troponin initially elevated; normal on repeat- ex lap converted to open- appendix removed and colostomy placed for bowel resection due to diverticulitis perforation and small bowel obstruction. 05/31/19- Dr Moran consulted for ICU/vent management- not improved enough to wean/extubate- Pulm to re-evaluate in AM. 06/01-02/13- extubated, antibiotic coverage changed to zosyn. Doing well on radha al canula oxygen. transfused 1 unit pRBC 06/03/19- improvement over the weekend. Continue zosyn. Continue ivf. Monitoring labs. Recheck labs in AM. Continue respiratory support as needed- levothyroxine being replaced IV. DVT ppx: scds Prognosis: guarded Problems: (1) Diverticulitis of intestine with perforation (2) Shock (3) NSTEMI (non-ST elevation myocardial infarction) (4) HFrEF (heart failure with reduced ejection fraction) (5) Hypophosphatemia (6) Atrial fibrillation with RVR (7) Acute respiratory failure with hypoxia (8) UTI due to Klebsiella species (9) Acute on chronic kidney failure Qualifiers: Qualified Codes: N17.0 - Acute kidney failure with tubular necrosis; N18.3 - Chronic kidney disease, stage 3 (moderate) (10) Hypokalemia (11) Hypernatremia (12) Lactic acidosis (13) ATN (acute tubular necrosis) (14) Hypothyroid Admission Dx intractable abdominal pain diverticulitis urinary tract infection Clinical Quality Measures Admission Status Admission Dx intractable abdominal pain diverticulitis urinary tract infection DVT/VTE Risk/Contraindication: Risk Factor Score Per Nursin RFS Level Per Nursing on Admit: 3=High MADYSON HERMAN MD Jun 03, 2019 08:37
[2019-06-03] MEDS: ANIDULAFUNGIN INJECTION 100 MG in NS (IVPB) 100 ML IV SCH (09:06)
[2019-06-03] MEDS: LEVOTHYROXINE 100 MCG INJ (SYNTHROID) VIAL IV SCH (09:06)
[2019-06-03] MEDS: PANTOPRAZOLE 40 MG (PROTONIX) VIAL IV SCH (09:06)
--- NOTE | 2019-06-03 10:35 | NUR ---
ATTEMPTED TO MOVE PATIENT FROM BED TO CHAIR WITH RN X2 AND RT. PT DID NOT TOLERATE WELL. WAS UNABLE TO ASSIST STAFF IN ANY WAY TO STAND OR MOVE. PT HAD DESATURATIONS DOWN TO 85% WITH OXYGEN APPLIED. MIDLINE ABD INCISION WEEPING LARGE AMOUNTS OF SEROSANGUINEOUS FLUID DURING ATTEMPTED TRANSFER. ABD X2 APPLIED WITH TAPE AND CHUX PAD APPLIED UNDER ABDOMINAL FOLD. PT WAS ABLE TO BE REPOSITIONED IN BED. OXYMASK APPLIED AT 8 LPM AND SATS RETURNED QUICKLY TO 93%. PT IS RESTING WITH EYES CLOSED AT THIS TIME.
--- NOTE | 2019-06-03 10:40 | Physical Therapy Evaluation ---
PT Evaluation-General Medical Diagnosis Admission Date May 27, 2019 at 15:22 Medical Diagnosis: bowel perforation Onset Date: May 30, 2019 Therapy Diagnosis Therapy Diagnosis: generalized weakness/debility Height/Weight Height (Feet): 5 Height (Inches): 2.00 Weight (Pounds): 200 Weight (Ounces): 0.0 Precautions Precautions/Isolations: Fall Prevention, Standard Precautions Weight Bear Status Right Lower Extremity: Right Full Weight Bearing Left Lower Extremity: Left Full Weight Bearing Referral Physician: Tom Reason for Referral: Evaluation/Treatment Medical History Pertinent Medical History: HTN Current History s/p bowel perforation with repair Reviewed History: Yes Social History Home: Single Level Current Living Status: Children Entry Into Home: Level Entry Prior Prior Level of Function Therapy Quality Codes: 6 Independent with activity with or without an assistive device 5 Patient requires set up or clean up by helper. Patient completes activity by themselves 4 Supervision or touching assist (CGA). [place] provide cues , steadying assist 3 The helper provides less than half the effort to complete the activity 2 The helper provides more than half the effort to complete the activity 1 Dependent. The helper does all the effort to complete an activity 7 Patient refused to complete or attempt activity 9 The patient did not perform the activity before the current illness or injury 88 Not attempted due to Medical conditions or safety concerns Bed Mobility: 6 Transfers (B,C,W/C): 6 Gait: 6 Indoor Mobility (Ambulation): Independent Prior Devices Use: Walker PT Evaluation-Current Subjective Patient agrees to PT. Objective Patient Orientation: Normal For Age Problem Solving: Poor Attachments: NG Tube, Oxygen, Chen Catheter, IV ROM/Strength ROM Lower Extremities bilateral LE limited due to edema Strength Lower Extremities 2-/5 grossly bilateral LE Integumentary/Posture Integumentary refer to nursing notes Bowel Incontinence: No Bladder Incontinence: Chen Cath Posture WFL Neuromuscular (Tone, Coordination, Reflexes) severely diminished with all Sensory Vision: Functional Hearing: Functional Sensation Right Lower Extremit: Intact Sensation Left Lower Extremity: Intact Transfers Roll Left to Right (QC): 1 Sit to Lying (QC): 1 Lying to Sitting/Side of Bed(Q: 1 Sit to Stand (QC): 1 Chair/Paw-xr-Xydla Xfer(QC): 1 dependent assist x 3 with all mobility with patient unable to assist with any mobility. Patient unable to tolerate up in chair on this date. Gait Does the Patient Walk?: Yes Anticipated Mode of Locomotion: Walk Balance Sitting Static: Poor Sitting Dynamic: Poor Standing Static: Poor Standing Dynamic: Poor Assessment/Needs 78 y.o. female will benefit from skilled PT to address functional strength and mobility to improve current LOF. Patient is severely weakness and unable to tolerate extensive therapy and will require time to recovery with gross motor skills. Rehab Potential: Guarded PT Shelter Goals Concert Pianist Goals PT Shelter Goals Time Frame: Jun 22, 2019 Sit to Lying (QC): 4 Lying-Sitting on Side/Bed(QC): 4 Sit to Stand (QC): 4 Roll Left to Right (QC): 4 Chair/[id number]-Gvfhf Xfer(QC): 4 Does the Patient Walk: Yes Distance: 150' Walk 10 feet (QC): 4 Walk 10ft-Uneven Surface(QC): 4 Walk 50ft with 2 Turns (QC): 4 Walk 150 ft (QC): 4 Gait Assistive Device: FWW # of Steps: 4 Stairs Level Of Assist: 5 PT Plan Problem List Problem List: Activity Tolerance, Functional Strength, Safety, Balance, Gait, Transfer, Bed Mobility, ROM Treatment/Plan Treatment Plan: Continue Plan of Care Treatment Plan: Bed Mobility, Education, Functional Activity [place], Functional Strength, Gait, Safety, Therapeutic Exercise, Transfers Treatment Duration: Jun 22, 2019 Frequency: 6 times per week Estimated Hrs Per Day: .25 hour per day Patient and/or Family Agrees t: Yes Discharge Recommendations Therapy Discharge Recommendati: Other, See Comments (jail facility) Time/GCodes Time In: 948 Time Out: 1003 Total Billed Treatment Time: 11 Total Billed Treatment 1 visit [facility] 11 min RYLAND APONTE PT Jun 03, 2019 10:40
[2019-06-03] MEDS ORDERED: LACTATED RINGERS 1,000 ML IV ONE (12:45)
[2019-06-03] MEDS ORDERED: NS IV 1000 ML 1,000 ML ONE (13:45)
--- NOTE | 2019-06-03 13:51 | Diagnostic Imaging Report ---
PROCEDURE: US Renal Bilateral. TECHNIQUE: Multiple real-time grayscale images were obtained over the kidneys in various projections bilaterally. INDICATION: Acute renal failure. FINDINGS: Right kidney measures 8.1 x 4.7 x 5.3 cm and the left kidney measures 8.6 x 5.7 x 5.2 cm. Cortical thickness and echogenicity appears normal. No definite calculi are seen. There is no hydronephrosis. The bladder appears to be decompressed by Chen catheter. IMPRESSION: Unremarkable renal ultrasound. Dictated by: Dictated on workstation # [id number]
--- NOTE | 2019-06-03 15:35 | NUR ---
1 L NS pulled for pressure bag for IAP monitoring.
--- NOTE | 2019-06-03 20:56 | Progress Note - Surgery ---
MORENITA HERNANDEZ [facility] 06/03/192055: Subjective Date Seen by a Provider: Jun 03, 2019 Time Seen by a Provider: 07:50 Subjective/Events-last exam Patient greeted me as I walked through the door but was confused with a "Dr. [place]". Patient complained of headache. Earlier had told nurses she had abdomen pain and was being treated for abdominal pain. Colostomy showed sedimentation, blood, and possible output. Complains of Nausea..WBC at 18.8. Hgb at 9.1 Review of Systems HEENT: Head Aches Cardiovascular: No: Chest Pain Gastrointestinal: Nausea; No: Vomiting, Abdominal Pain Neurological: Confusion Focused Exam Lactate Level 06/02/19 06:45: Lactic Acid Level 2.22*H 06/02/19 09:25: Lactic Acid Level 2.29*H Objective Exam Vital Signs Date Time Temp Pulse Resp B/P (MAP) Pulse Ox O2 Delivery O2 Flow Rate FiO2 06/03/19 19:50 95 Nasal Cannula 2.00 06/03/19 19:35 36.5 Nasal Cannula 2.00 06/03/19 18:00 64 15 128/78 (95) 96 OxyMask 3.00 06/03/19 17:00 77 30 165/95 (118) 93 OxyMask 3.00 06/03/19 16:00 77 15 128/93 (105) 94 OxyMask 3.00 06/03/19 16:00 95 Nasal Cannula 3.00 06/03/19 15:00 66 17 154/90 (111) 93 OxyMask 3.00 06/03/19 14:00 68 18 140/95 (110) 95 OxyMask 3.00 06/03/19 13:00 64 16 119/79 (92) 94 OxyMask 3.00 06/03/19 13:00 64 06/03/19 12:17 92 Nasal Cannula 3.00 06/03/19 12:12 Nasal Cannula 3.00 06/03/19 12:00 74 17 145/88 (107) 94 OxyMask 3.00 06/03/19 11:38 OxyMask 3.00 06/03/19 11:00 75 16 116/89 (98) 93 OxyMask 4.00 06/03/19 10:30 OxyMask 4.00 06/03/19 10:00 87 151/93 (112) 92 Nasal Cannula 2.00 06/03/19 09:00 75 16 123/79 (94) 94 Nasal Cannula 2.00 06/03/19 08:00 73 16 151/105 (120) 94 Nasal Cannula 2.00 06/03/19 07:45 96 OxyMask 3.00 06/03/19 07:45 71 116/89 (98) 06/03/19 07:00 36.6 06/03/19 07:00 70 06/03/19 07:00 68 33 128/90 (103) 95 Nasal Cannula 2.00 06/03/19 06:00 66 15 121/87 (98) 94 Nasal Cannula 2.00 06/03/19 05:00 75 20 127/85 (99) 94 Nasal Cannula 2.00 06/03/19 04:11 36.8 Nasal Cannula 2.00 06/03/19 04:00 72 18 133/90 (104) 93 Nasal Cannula 2.00 06/03/19 04:00 94 Nasal Cannula 2.00 06/03/19 03:00 77 20 124/81 (95) 93 Nasal Cannula 2.00 06/03/19 02:00 71 16 122/79 (93) 92 Nasal Cannula 2.00 06/03/19 01:02 73 06/03/19 01:00 71 21 138/85 (102) 93 Nasal Cannula 2.00 06/03/19 00:25 93 Nasal Cannula 2.00 06/03/19 00:10 36.2 Nasal Cannula 2.00 06/03/19 00:00 84 25 151/101 (118) 91 Nasal Cannula 2.00 06/02/19 23:00 80 23 144/92 (109) 94 Nasal Cannula 2.00 06/02/19 22:00 81 23 151/90 (110) 93 Nasal Cannula 2.00 06/02/19 21:00 79 25 140/103 (115) 93 Nasal Cannula 2.00 I & O 06/03/19 07:00 Intake Total 6850 ml Output Total 759 ml Balance 6091 ml Capillary Refill : Less Than 3 SecondsLess Than 3 Seconds General Appearance: Mild Distress, Other (uncomfortable) HEENT: PERRL/EOMI, Other (ET tube in place) Neck: Normal Inspection Respiratory: Lungs Clear, Normal Breath Sounds, No Respiratory Distress Cardiovascular: Regular Rate, Rhythm, No Murmur Gastrointestinal: soft, other (colostomy edematous, sedimentation, blood and possible output. ) Extremity: Normal Inspection, Non Tender, Swelling Neurologic/Psychiatric: Alert, Other (Confusion) Skin: Normal Color, Warm/Dry Lymphatic: No Adenopathy Results Lab Laboratory Tests 06/03/19 00:13: Glucometer 140H 06/03/19 03:23: White Blood Count 18.8H, Red Blood Count 3.03L, Hemoglobin 9.1L, Hematocrit 29L, Mean Corpuscular Volume 95, Mean Corpuscular Hemoglobin 30, Mean Corpuscular Hemoglobin Concent 32, Red Cell Distribution Width 16.1H, Platelet Count 142, Mean Platelet Volume 11.4H, Neutrophils (%) (Auto) 84H, Lymphocytes (%) (Auto) 10L, Monocytes (%) (Auto) 6, Eosinophils (%) (Auto) 0, Basophils (%) (Auto) 0, Neutrophils # (Auto) 15.7H, Lymphocytes # (Auto) 2.0, Monocytes # (Auto) 1.1H, Eosinophils # (Auto) 0.0, Basophils # (Auto) 0.0, Sodium Level 146H, Potassium Level 4.0, Chloride Level 107, Carbon Dioxide Level 29, Anion Gap 10, Blood Urea Nitrogen 34H, Creatinine 1.59H, Estimat Glomerular Filtration Rate 31, BUN/Creatinine Ratio 21, Glucose Level 137H, Calcium Level 7.4L, Phosphorus Level 3.3, Magnesium Level 2.1 06/03/19 11:43: Lab Scanned Report Transfusion Reaction Form 06/03/19 19:05: Glucometer 153H Microbiology 06/02/19 Blood Culture - Preliminary, Resulted No growth 05/30/19 Gram Stain - Final, Complete 05/30/19 Sputum Culture - Final, Complete Usual upper respiratory pau 06/02/19 Urine Culture - Final, Complete NO GROWTH Assessment/Plan Assessment/Plan Assessment/Plan 05/27/19 IVF, NPO- monitor respiratory status with the IVF. Rechecking labs in the AM continue metronidazole and rocephin- checking blood cultures and urine cultures. 05/28/19- SVT overnight- resolved. WBC still elevated. No fevers since yesterday. Cr still 1.4. Abdominal pain improved compared to admission. 05/29/19- Cr improved to 1.27, WBC back down to 23K- will continue to trend. Temp yesterday evening was 37.9C- Still on metronidazole and ceftriaxone. Urine culture growing gram negative- awaiting antibiotic coverage. Blood cultures negative to date. -will try 5mg ambien to help her sleep tonight. -will add on metoclopramide daily to see if it will help with nausea and stimulate her GI tract to get back to functioning. 05/30/19- ST with PVC. Dr. Hills consulted- troponin initially elevated; normal on repeat- ex lap converted to open- appendix removed and colostomy placed for bowel resection due to diverticulitis perforation and small bowel obstruction. 05/31/19- Dr Moran consulted for ICU/vent management- not improved enough to wean/extubate- Pulm to re-evaluate in AM. 06/01-02/13- extubated, antibiotic coverage changed to zosyn. Doing well on nasal canula oxygen. transfused 1 unit pRBC 06/03/19- improvement over the weekend. Continue zosyn. Continue ivf. Monitoring labs. Recheck labs in AM. Continue respiratory support as needed- levothyroxine being replaced IV. DVT ppx: scds Prognosis: guarded Clinical Quality Measures DVT/VTE Risk/Contraindication: Risk Factor Score Per Nursin RFS Level Per Nursing on Admit: 3=High NAJMA MALCOLM DO 06/03/192117: Subjective Subjective/Events-last exam Patient alert laying in bed. States she is hurting, but feeling better a little. Urine output still low. Renal u/s unremarkable. No family at bedside. NG tube in place . Objective Exam General Appearance: Other (uncomfortable) HEENT: PERRL/EOMI Neck: Normal Inspection Respiratory: Chest Non Tender, No Accessory Muscle Use, No Respiratory Distress Cardiovascular: Regular Rate, Rhythm Gastrointestinal: soft (incisional tenderness, c/d/i), other (colostomy edematous very small amount stool at opening of ostomy and serous output) Extremity: Swelling Neurologic/Psychiatric: Alert Skin: Normal Color, Warm/Dry Lymphatic: No Adenopathy Assessment/Plan Assessment/Plan Assessment/Plan s/p exploratory lap, sigmoid resection and end colostomy appendectomy low urine output resp failure-extubated renal failure- renal u/s unremarkable villalba for accurate i/o lll pneumonia continue on abx guarded prognosis will consider removing ng tube in am Supervisory-Addendum Brief Verification & Attestation Participated in pt care: history, MDM, physical Personally performed: exam, history, MDM, supervision of care Care discussed with: Medical Student Procedures: n/a Results interpretation: Verified all documentation Verification and Attestation of Medical Student E/M Service A medical student performed and documented this service in my presence. I reviewed and verified all information documented by the medical student and made modifications to such information, when appropriate. I personally performed the physical exam and medical decision making. Najma Malcolm, Jun 03, 2019,21:18 [facility] Jun 03, 2019 20:56 NAJMA MALCOLM DO Jun 03, 2019 21:18
[2019-06-03] MEDS: fentaNYL INJECTION 100 MCG/2 ML AMP IV PRN (23:03)
[2019-06-04] VITALS (24 sets, daily range): BP systolic 117–159; BP diastolic 72–97
[2019-06-04 03:35] LABS: BASOPHILS % (AUTO) 0 % (0-10); EOSINOPHILS # (AUTO) 0.1 10^3/uL (0.0-0.3); EOSINOPHILS % (AUTO) 1 % (0-10); HEMATOCRIT 28 % (35-52); HEMOGLOBIN 8.6 G/DL (11.5-16.0); LYMPHOCYTES % (AUTO) 11 % (12-44); MEAN CORPUSCULAR HEMOGLOBIN 30 PG (25-34); MEAN CORPUSCULAR HGB CONC 31 G/DL (32-36); MEAN CORPUSCULAR VOLUME 97 FL (80-99); MEAN PLATELET VOLUME 11.1 FL (7.4-10.4); MONOCYTES # (AUTO) 1.5 X 10^3 (0.0-1.0); MONOCYTES % (AUTO) 8 % (0-12); NEUTROPHILS % (AUTO) 80 % (42-75); PLATELET COUNT 140 10^3/uL (130-400); RED CELL DISTRIBUTION WIDTH 15.9 % (10.0-14.5); WHITE BLOOD COUNT 17.6 10^3/uL (4.3-11.0)
[2019-06-04 04:02] LABS: CALCIUM 7.5 MG/DL (8.5-10.1); CREATININE SERUM 1.61 MG/DL (0.60-1.30); MAGNESIUM 1.9 MG/DL (1.6-2.4); PHOSPHORUS 3.1 MG/DL (2.3-4.7); POTASSIUM 3.6 MMOL/L (3.6-5.0)
[2019-06-04] MEDS: POTASSIUM CL 10MEQ/50ML IVPB 50 ML IV SCH ×7 (04:37→09:49)
[2019-06-04] MEDS: MAGNESIUM 1 GM/100 ML IVPB 100 ML IV SCH (04:38)
[2019-06-04] MEDS: KCL 20 MEQ TAB (K-DUR) PO SCH (04:38)
[2019-06-04] MEDS: inSUlin ASPART (NovoLOG) 1 UNIT/0.01 ML (CHARGE PER UNIT) SC SCH ×3 (04:39→17:44)
[2019-06-04] MEDS: PIPERACILLIN/TAZOBACTAM (BULK) 4.5 GM in NS (IVPB) 100 ML IV SCH ×3 (05:03→21:16)
[2019-06-04] MEDS: D5 1/2 NS 1000 ML IV SOLUTION 1,000 ML IV SCH (05:03)
[2019-06-04] MEDS: meTOprolol 5 MG/5 ML (LOPRESSOR) VIAL IV SCH ×3 (05:03→17:49)
--- NOTE | 2019-06-04 05:19 | Pulmonary Progress Note ---
Subjective Time Seen by a Provider: 06:53 Subjective/Events-last exam UO has improved. She appears very weak. Sepsis Event Evaluation Height, Weight, BMI Height: 5'2.00" Weight: 200lbs. 0.0oz. [id number]; 38.69 BMI Method: Focused Exam Lactate Level 06/02/19 06:45: Lactic Acid Level 2.22*H 06/02/19 09:25: Lactic Acid Level 2.29*H Exam Exam Vital Signs Date Time Temp Pulse Resp B/P (MAP) Pulse Ox O2 Delivery O2 Flow Rate FiO2 06/04/19 04:00 36.9 Nasal Cannula 3.00 06/04/19 04:00 94 Nasal Cannula 3.00 06/04/19 04:00 65 13 117/80 (92) 91 Nasal Cannula 3.00 06/04/19 03:00 68 13 146/90 (108) 94 Nasal Cannula 3.00 06/04/19 02:00 64 14 134/89 (104) 90 Nasal Cannula 3.00 06/04/19 01:03 68 06/04/19 01:00 66 13 147/88 (107) 93 Nasal Cannula 3.00 06/04/19 00:00 65 10 123/72 (89) 92 Nasal Cannula 3.00 06/03/19 23:35 93 Nasal Cannula 3.00 06/03/19 23:04 Nasal Cannula 3.00 06/03/19 23:00 70 25 157/87 (110) 90 Nasal Cannula 2.00 06/03/19 22:00 67 15 138/84 (102) 91 Nasal Cannula 2.00 06/03/19 21:00 67 15 137/82 (100) 93 Nasal Cannula 2.00 06/03/19 20:00 70 27 123/80 (94) 93 Nasal Cannula 2.00 06/03/19 19:50 95 Nasal Cannula 2.00 06/03/19 19:41 75 06/03/19 19:35 36.5 Nasal Cannula 2.00 06/03/19 19:00 68 28 142/86 (104) 92 OxyMask 3.00 06/03/19 18:00 64 15 128/78 (95) 96 OxyMask 3.00 06/03/19 17:00 77 30 165/95 (118) 93 OxyMask 3.00 06/03/19 16:00 77 15 128/93 (105) 94 OxyMask 3.00 06/03/19 16:00 95 Nasal Cannula 3.00 06/03/19 15:00 66 17 154/90 (111) 93 OxyMask 3.00 06/03/19 14:00 68 18 140/95 (110) 95 OxyMask 3.00 06/03/19 13:00 64 16 119/79 (92) 94 OxyMask 3.00 06/03/19 13:00 64 06/03/19 12:17 92 Nasal Cannula 3.00 06/03/19 12:12 Nasal Cannula 3.00 06/03/19 12:00 74 17 145/88 (107) 94 OxyMask 3.00 06/03/19 11:38 OxyMask 3.00 06/03/19 11:00 Nasal Cannula 2.00 06/03/19 11:00 75 16 116/89 (98) 93 OxyMask 4.00 06/03/19 10:30 OxyMask 4.00 06/03/19 10:00 87 151/93 (112) 92 Nasal Cannula 2.00 06/03/19 09:00 75 16 123/79 (94) 94 Nasal Cannula 2.00 06/03/19 08:00 73 16 151/105 (120) 94 Nasal Cannula 2.00 06/03/19 07:45 96 OxyMask 3.00 06/03/19 07:45 71 116/89 (98) 06/03/19 07:00 36.6 06/03/19 07:00 70 06/03/19 07:00 68 33 128/90 (103) 95 Nasal Cannula 2.00 06/03/19 06:00 66 15 121/87 (98) 94 Nasal Cannula 2.00 I & O 06/04/19 07:00 Intake Total 4550 ml Output Total 408 ml Balance 4142 ml Height & Weight Height: 5'2.00" Weight: 200lbs. 0.0oz. 90.062479yj; 38.69 BMI Method: General Appearance: Mild Distress, Other (uncomfortable) HEENT: PERRL/EOMI Neck: Normal Inspection Respiratory: Chest Non Tender, No Accessory Muscle Use, No Respiratory Distress Cardiovascular: Regular Rate, Rhythm Capillary Refill: Less Than 3 Seconds Gastrointestinal: soft (incisional tenderness, c/d/i), other (colostomy edematous very small amount stool at opening of ostomy and serous output) Extremity: Swelling Neurologic/Psychiatric: Alert Skin: Normal Color, Warm/Dry Lymphatic: No Adenopathy Results Lab Laboratory Tests 06/02/19 14:55 06/03/19 03:23 06/04/19 03:10 Assessment/Plan Assessment/Plan PNA LLL -Rocephin and Flagyl auto d/c'd and WBC is up to 20 -Continue Zosyn x 7days started 04/02 for pneumonia -Repan culture pending New onset Afib RVR - now converted -Amio Cardiomyopathy EF 25% with hypotension - Dopamine is now off -PT is doing well pulmonary hill. Acute renal failure with decreased UO - monitor closely -Check bladder pressure -Decrease IVF and monitor UO -Will give 2mg of Bumex x 1 and albumin secondary to anasarca, worsening CXR, and decreased UO. -Avoid nephrotoxic meds -Since hypernatremia resolved will change IVF to D5LR at 100cc/hr Hypoalbuminemia secondary to protein shelli malnutrition -Diet per surgery -Consider TPN if NPO status is going to continue. Acute sigmoid perforation s/p surgical repair - Eraxis NSTEMI -Cardiology following Hypothyroid - Synthroid IV while pt is NPO Anemia -Monitor Diverticulitis/colitis UTI with klebsiella TANJA MACHADO DO Jun 04, 2019 05:19
[2019-06-04] MEDS ORDERED: ALBUMIN 25% 25 GM/100 ML 100 ML IV ONE ×2 (05:30→05:34)
[2019-06-04] MEDS ORDERED: BUMETANIDE 1 MG/4 ML (BUMEX) VIAL IV ONE (05:30)
[2019-06-04] MEDS ORDERED: BUMETANIDE 1 MG/4 ML (BUMEX) VIAL ONE (05:34)
[2019-06-04] MEDS ORDERED: D5 LR IV SOLUTION 1,000 ML IV ONE (05:34)
[2019-06-04] MEDS: D5 LR IV SOLUTION 1,000 ML IV SCH ×2 (05:37→15:41)
--- NOTE | 2019-06-04 07:02 | Cardiology Progress Note ---
Subjective Date Seen by Provider: Jun 04, 2019 Time Seen by Provider: 07:00 Subjective/Events-last exam Patient is laying down in bed, feeling better, no new complaint, tired and has NG tube Review of Systems General: No Chills, No Night Sweats, No Fatigue, No Malaise, No Appetite, No Other HEENT: No Head Aches, No Visual Changes, No Eye Pain, No Ear Pain, No Dysphas ia, No Sinus Congestion, No Post Nasal Drip, No Sore Throat, No Other Pulmonary: Dyspnea; No Cough, No Pleuritic Chest Pain, No Other Cardiovascular: No: Chest Pain, Palpitations, Orthopnea, Paroxysmal Noc. Dyspnea, Edema, Lt Headedness, Other Focused Exam Lactate Level 06/02/19 06:45: Lactic Acid Level 2.22*H 06/02/19 09:25: Lactic Acid Level 2.29*H Objective-Cardiology Exam Last Set of Vital Signs Vital Signs 06/02/19 06/04/19 06/04/19 01:07 05:00 06:00 Pulse 68 Resp 13 B/P (MAP) 137/82 (100) Pulse Ox 95 O2 Delivery Nasal Cannula O2 Flow Rate 3.00 FiO2 35 Capillary Refill : Less Than 3 SecondsLess Than 3 Seconds I&O Intake and Output 06/04/19 00:00 Intake Total 5580 ml Output Total 506 ml Balance 5074 ml Intake Oral 0 ml IV Total 5490 ml Other 90 ml Output Urine Total 506 ml General: Alert, Cooperative, Moderate Distress HEENT: Atraumatic, PERRLA Neck: Supple, No JVD Lungs: Normal Air Movement, Other (Bilateral rhonchi) Heart: Regular Rate, Normal S1, Normal S2 Abdomen: Other (Diminished bowel sounds) Extremities: No Clubbing, No Cyanosis Skin: No Rashes, No Breakdown Neuro: Normal Speech, Sensation Intact Results Lab Laboratory Tests 06/04/19 03:10 A/P-Cardiology Admission Diagnosis Septic shock Type II OH Diverticulitis Hypertension Assessment/Plan Type II myocardial infarction probably secondary to hypoxemia, hypotension and tachycardia, conservative management. Continue to monitor Pneumonia, receiving antibiotics, managed by primary care team Oliguria, acute renal failure on chronic renal insufficiency, received IV fluid. Tinea to monitor renal function Status post acute respiratory failure, extubated on June 01, 2019, currently on a mask, still having shortness of breath Transient atrial fibrillation occurred on May 30, 2019, converted to sinus rhythm on amiodarone drip. Still have NG tube. Diverticulitis, small bowel obstruction, perforation and appendicitis, had surgical appendectomy with colon resection and decompression. Hypotensive shock combination between septic and cardiogenic shock, better at this time, borderline hypertensive. Continue to monitor Severe cardiomyopathy with severe left ventricular systolic dysfunction, probably ischemic in nature, cannot tolerate beta blockers, DAVID inhibitor and/or ARB to the hypotension, echo showed ejection fraction 25-30 percent, moderate t ricuspid regurgitation, PA 45 mmHg, will need cardiac catheterization once clinically stable History of hypertension, continue to monitor blood pressure. History of hyperlipidemia, has been on simvastatin as an outpatient Hypothyroidism contained on levothyroxin Clinical Quality Measures DVT/VTE Risk/Contraindication: Risk Factor Score Per Nursin RFS Level Per Nursing on Admit: 3=High HAL DOUGLAS MD Jun 04, 2019 07:02
--- NOTE | 2019-06-04 09:13 | Diagnostic Imaging Report ---
Portable erect AP chest at 3:43. Indication: Respiratory distress When compared with the prior exam of 06/03/2019 there does not appear to have been any significant change. The cardiomegaly and bibasilar atelectasis/infiltrate and effusions seen previously are again evident. The density in the left lung base may be slightly greater. The upper lungs remain clear. The mediastinum is not widened. The osseous structures are intact. The supportive tubes and lines seem unchanged in position. Impression: The density in the left lung base may be slightly greater than on the prior study but overall there has been no significant change. A followup examination would be recommended for continued evaluation. Dictated by: Dictated on workstation # [id number]
[2019-06-04] MEDS: PANTOPRAZOLE 40 MG (PROTONIX) VIAL IV SCH (09:15)
[2019-06-04] MEDS: ANIDULAFUNGIN INJECTION 100 MG in NS (IVPB) 100 ML IV SCH (09:15)
[2019-06-04] MEDS: LEVOTHYROXINE 100 MCG INJ (SYNTHROID) VIAL IV SCH (09:15)
[2019-06-04] MEDS: HYDROmorphone 2 MG/ML VIAL (DILAUDID) IV PRN ×3 (09:16→22:45)
--- NOTE | 2019-06-04 10:36 | Physical Therapy Progress Note ---
Therapy Progress Note Patient has declined PT x 2 attempts and states she wants to be left alone today. RN notified. PT will attempt in a.m. 2 ref ([phone]) RYLAND APONTE PT Jun 04, 2019 10:36
[2019-06-04] MEDS: fentaNYL INJECTION 100 MCG/2 ML AMP IV PRN ×2 (11:33→21:16)
--- NOTE | 2019-06-04 12:27 | NUR ---
Message left with Dr. Gómez's office for consideration of referral for LTAC vs. SWB if/when patient becomes appropriate for those services. Will follow up with him tomorrow.
--- NOTE | 2019-06-04 13:05 | Progress Note ---
Subjective Subjective Date Seen by Provider: Jun 04, 2019 Time Seen by Provider: 13:03 78 yo F wbc improving. Renal ultrasound normal. Creatinine about the same from yesterday. Review of Systems ROS Unable to Obtain: intubated, sedated General: No Chills, No Night Sweats, No Fatigue, No Malaise, No Appetite, No Other HEENT: No Head Aches, No Visual Changes, No Eye Pain, No Ear Pain, No Dysphasia, No Sinus Congestion, No Post Nasal Drip, No Sore Throat, No Other Pulmonary: Dyspnea; No Cough, No Pleuritic Chest Pain, No Other Cardiovascular: No: Chest Pain, Palpitations, Orthopnea, Paroxysmal Noc. Dyspnea, Edema, Lt Headedness, Other Gastrointestinal: Nausea; No: Vomiting, Abdominal Pain Genitourinary: No Dysuria Neurological: Confusion All Other Systems Reviewed All Other Systems Reviewed: Yes Objective Exam Vital Signs Vital Signs Date Time Temp Pulse Resp B/P (MAP) Pulse Ox O2 Delivery O2 Flow Rate FiO2 06/04/19 12:00 94 Nasal Cannula 3.00 06/04/19 11:30 36.3 06/04/19 11:00 74 19 146/82 (103) 94 Nasal Cannula 3.00 06/04/19 10:00 70 14 146/83 (104) 96 Nasal Cannula 3.00 06/04/19 09:00 65 14 157/86 (109) 95 Nasal Cannula 3.00 06/04/19 08:00 94 Nasal Cannula 3.00 06/04/19 08:00 69 10 152/90 (110) 96 Nasal Cannula 3.00 06/04/19 08:00 36.0 06/04/19 07:00 71 06/04/19 07:00 71 17 142/89 (106) 96 Nasal Cannula 3.00 06/04/19 06:00 13 137/82 (100) 95 Nasal Cannula 3.00 06/04/19 05:00 68 15 126/87 (100) 94 Nasal Cannula 3.00 06/04/19 04:00 36.9 Nasal Cannula 3.00 06/04/19 04:00 94 Nasal Cannula 3.00 06/04/19 04:00 65 13 117/80 (92) 91 Nasal Cannula 3.00 06/04/19 03:00 68 13 146/90 (108) 94 Nasal Cannula 3.00 06/04/19 02:00 64 14 134/89 (104) 90 Nasal Cannula 3.00 06/04/19 01:03 68 06/04/19 01:00 66 13 147/88 (107) 93 Nasal Cannula 3.00 06/04/19 00:00 65 10 123/72 (89) 92 Nasal Cannula 3.00 06/03/19 23:35 93 Nasal Cannula 3.00 06/03/19 23:04 Nasal Cannula 3.00 06/03/19 23:00 70 25 157/87 (110) 90 Nasal Cannula 2.00 06/03/19 22:00 67 15 138/84 (102) 91 Nasal Cannula 2.00 06/03/19 21:00 67 15 137/82 (100) 93 Nasal Cannula 2.00 06/03/19 20:00 70 27 123/80 (94) 93 Nasal Cannula 2.00 06/03/19 19:50 95 Nasal Cannula 2.00 06/03/19 19:41 75 06/03/19 19:35 36.5 Nasal Cannula 2.00 06/03/19 19:00 68 28 142/86 (104) 92 OxyMask 3.00 06/03/19 18:00 64 15 128/78 (95) 96 OxyMask 3.00 06/03/19 17:00 77 30 165/95 (118) 93 OxyMask 3.00 06/03/19 16:00 77 15 128/93 (105) 94 OxyMask 3.00 06/03/19 16:00 95 Nasal Cannula 3.00 06/03/19 15:00 66 17 154/90 (111) 93 OxyMask 3.00 06/03/19 14:00 68 18 140/95 (110) 95 OxyMask 3.00 I & O 06/04/19 07:00 Intake Total 4730 ml Output Total 613 ml Balance 4117 ml General Appearance: Mild Distress, Other (uncomfortable) HEENT: Other (ET tube in place) Neck: Normal Inspection Respiratory: Lungs Clear, Normal Breath Sounds, No Respiratory Distress Cardiovascular: Regular Rate, Rhythm, No Edema, No Murmur Gastrointestinal: Normal Bowel Sounds, Soft; No Distended, No Guarding; Tenderness Rectal: Deferred Extremity: Normal Inspection, Non Tender Neurologic/Psychiatric: Alert Skin: Normal Color, Warm/Dry Lymphatic: No Adenopathy Results Lab Laboratory Tests 06/03/19 19:05: Glucometer 153H 06/04/19 03:10: White Blood Count 17.6H, Red Blood Count 2.85L, Hemoglobin 8.6L, Hematocrit 28L, Mean Corpuscular Volume 97, Mean Corpuscular Hemoglobin 30, Mean Corpuscular Hemoglobin Concent 31L, Red Cell Distribution Width 15.9H, Platelet Count 140, Mean Platelet Volume 11.1H, Neutrophils (%) (Auto) 80H, Lymphocytes (%) (Auto) 11L, Monocytes (%) (Auto) 8, Eosinophils (%) (Auto) 1, Basophils (%) (Auto) 0, Neutrophils # (Auto) 14.0H, Lymphocytes # (Auto) 2.0, Monocytes # (Auto) 1.5H, Eosinophils # (Auto) 0.1, Basophils # (Auto) 0.0, Sodium Level 143, Potassium Level 3.6, Chloride Level 106, Carbon Dioxide Level 27, Anion Gap 10, Blood Urea Nitrogen 34H, Creatinine 1.61H, Estimat Glomerular Filtration Rate 31, BUN/Creatinine Ratio 21, Glucose Level 164H, Calcium Level 7.5L, Phosphorus Level 3.1, Magnesium Level 1.9 06/04/19 11:15: Glucometer 154H Microbiology 06/02/19 Blood Culture - Preliminary, Resulted No growth 05/30/19 Gram Stain - Final, Complete 05/30/19 Sputum Culture - Final, Complete Usual upper respiratory pau 06/02/19 Urine Culture - Final, Complete NO GROWTH Assessment/Plan Assessment/Plan Admission Dx intractable abdominal pain diverticulitis urinary tract infection Assessment and Plan 05/27/19 IVF, NPO- monitor respiratory status with the IVF. Rechecking labs in the AM continue metronidazole and rocephin- checking blood cultures and urine cultures. 05/28/19- SVT overnight- resolved. WBC still elevated. No fevers since yesterday. Cr still 1.4. Abdominal pain improved compared to admission. 05/29/19- Cr improved to 1.27, WBC back down to 23K- will continue to trend. Temp yesterday evening was 37.9C- Still on metronidazole and ceftriaxone. Urine culture growing gram negative- awaiting antibiotic coverage. Blood cultures negative to date. -will try 5mg ambien to help her sleep tonight. -will add on metoclopramide daily to see if it will help with nausea and stim ulate her GI tract to get back to functioning. 05/30/19- ST with PVC. Dr. Hills consulted- troponin initially elevated; roger l on repeat- ex lap converted to open- appendix removed and colostomy placed for bowel resection due to diverticulitis perforation and small bowel obstruction. 05/31/19- Dr Moran consulted for ICU/vent management- not improved enough to wean/extubate- Pulm to re-evaluate in AM. 06/01-02/13- extubated, antibiotic coverage changed to zosyn. Doing well on nasal canula oxygen. transfused 1 unit pRBC 06/03/19- improvement over the weekend. Continue zosyn. Continue ivf. Monitoring labs. Recheck labs in AM. Continue respiratory support as needed- levothyroxine being replaced IV. 06/04/19- pt is reporting she is hungry- kidney function improving with improved UOP. WBC continue to trend down. DVT ppx: scds Prognosis: improved. Problems: (1) Diverticulitis of intestine with perforation (2) Shock (3) NSTEMI (non-ST elevation myocardial infarction) (4) HFrEF (heart failure with reduced ejection fraction) (5) Hypophosphatemia (6) Atrial fibrillation with RVR (7) Acute respiratory failure with hypoxia (8) UTI due to Klebsiella species (9) Acute on chronic kidney failure Qualifiers: Qualified Codes: N17.0 - Acute kidney failure with tubular necrosis; N18.3 - Chronic kidney disease, stage 3 (moderate) (10) Hypokalemia (11) Hypernatremia (12) Lactic acidosis (13) ATN (acute tubular necrosis) (14) Hypothyroid Admission Dx intractable abdominal pain diverticulitis urinary tract infection Clinical Quality Measures Admission Status Admission Dx intractable abdominal pain diverticulitis urinary tract infection DVT/VTE Risk/Contraindication: Risk Factor Score Per Nursin RFS Level Per Nursing on Admit: 3=High MADYSON HERMAN MD Jun 04, 2019 13:05
--- NOTE | 2019-06-04 19:54 | Progress Note - Surgery ---
[facility] HERNANDE[facility] [birth year]: Subjective Date Seen by a Provider: Jun 04, 2019 Time Seen by a Provider: 07:30 Subjective/Events-last exam Patient appears uncomfortable but has increase in energy. Patient does not feel well, Reports of pain in the belly. Rates it as an 8/10. Colostomy has stool output. Incision has no erythema. Urine output has improved to 0.37 ml/kg/hr. WBC is 17.6. Review of Systems General: No Chills, No Other (Fever) Pulmonary: No Dyspnea; Cough Cardiovascular: No: Chest Pain, Palpitations Gastrointestinal: Abdominal Pain; No: Nausea, Vomiting Focused Exam Lactate Level 06/02/19 06:45: Lactic Acid Level 2.22*H 06/02/19 09:25: Lactic Acid Level 2.29*H Objective Exam Vital Signs Date Time Temp Pulse Resp B/P (MAP) Pulse Ox O2 Delivery O2 Flow Rate FiO2 06/04/19 19:29 36.3 68 18 158/94 (115) 95 Nasal Cannula 3.00 06/04/19 18:00 61 17 140/83 (102) 95 Nasal Cannula 3.00 06/04/19 17:00 65 13 143/88 (106) 93 Nasal Cannula 3.00 06/04/19 16:00 94 Nasal Cannula 3.00 06/04/19 16:00 71 15 145/82 (103) 92 Nasal Cannula 3.00 06/04/19 15:40 37.0 06/04/19 15:00 69 16 146/82 (103) 96 Nasal Cannula 3.00 06/04/19 14:00 69 19 141/78 (99) 100 Nasal Cannula 3.00 06/04/19 13:00 62 22 120/75 (90) 90 Nasal Cannula 3.00 06/04/19 13:00 62 06/04/19 12:00 94 Nasal Cannula 3.00 06/04/19 12:00 59 12 130/77 (94) 92 Nasal Cannula 3.00 06/04/19 11:30 36.3 06/04/19 11:00 74 19 146/82 (103) 94 Nasal Cannula 3.00 06/04/19 10:00 70 14 146/83 (104) 96 Nasal Cannula 3.00 06/04/19 09:00 65 14 157/86 (109) 95 Nasal Cannula 3.00 06/04/19 08:00 94 Nasal Cannula 3.00 06/04/19 08:00 69 10 152/90 (110) 96 Nasal Cannula 3.00 06/04/19 08:00 36.0 06/04/19 07:00 71 06/04/19 07:00 71 17 142/89 (106) 96 Nasal Cannula 3.00 06/04/19 06:00 13 137/82 (100) 95 Nasal Cannula 3.00 06/04/19 05:00 68 15 126/87 (100) 94 Nasal Cannula 3.00 06/04/19 04:00 36.9 Nasal Cannula 3.00 06/04/19 04:00 94 Nasal Cannula 3.00 06/04/19 04:00 65 13 117/80 (92) 91 Nasal Cannula 3.00 06/04/19 03:00 68 13 146/90 (108) 94 Nasal Cannula 3.00 06/04/19 02:00 64 14 134/89 (104) 90 Nasal Cannula 3.00 06/04/19 01:03 68 06/04/19 01:00 66 13 147/88 (107) 93 Nasal Cannula 3.00 06/04/19 00:00 65 10 123/72 (89) 92 Nasal Cannula 3.00 06/03/19 23:35 93 Nasal Cannula 3.00 06/03/19 23:04 Nasal Cannula 3.00 06/03/19 23:00 70 25 157/87 (110) 90 Nasal Cannula 2.00 06/03/19 22:00 67 15 138/84 (102) 91 Nasal Cannula 2.00 06/03/19 21:00 67 15 137/82 (100) 93 Nasal Cannula 2.00 06/03/19 20:00 70 27 123/80 (94) 93 Nasal Cannula 2.00 06/03/19 19:50 95 Nasal Cannula 2.00 I & O 06/04/19 07:00 Intake Total 4730 ml Output Total 613 ml Balance 4117 ml Capillary Refill : Less Than 3 SecondsLess Than 3 Seconds General Appearance: Mild Distress, Other (uncomfortable) HEENT: Other (ET tube in place) Respiratory: Chest Non Tender, Lungs Clear, Normal Breath Sounds, No Respiratory Distress, Other (Requires Oxygen) Cardiovascular: Regular Rate, Rhythm, No Murmur, Other (Edema) Gastrointestinal: soft, other (Colostomy has some output. Incision line has serosanguinous liquid. ) Extremity: Normal Inspection, Non Tender Neurologic/Psychiatric: Alert, Other (Decrease in energy. Noticeable fatigue/weakness. ) Lymphatic: No Adenopathy Results Lab Laboratory Tests 06/04/19 03:10: White Blood Count 17.6H, Red Blood Count 2.85L, Hemoglobin 8.6L, Hematocrit 28L, Mean Corpuscular Volume 97, Mean Corpuscular Hemoglobin 30, Mean Corpuscular Hemoglobin Concent 31L, Red Cell Distribution Width 15.9H, Platelet Count 140, Mean Platelet Volume 11.1H, Neutrophils (%) (Auto) 80H, Lymphocytes (%) (Auto) 11L, Monocytes (%) (Auto) 8, Eosinophils (%) (Auto) 1, Basophils (%) (Auto) 0, Neutrophils # (Auto) 14.0H, Lymphocytes # (Auto) 2.0, Monocytes # (Auto) 1.5H, Eosinophils # (Auto) 0.1, Basophils # (Auto) 0.0, Sodium Level 143, Potassium Level 3.6, Chloride Level 106, Carbon Dioxide Level 27, Anion Gap 10, Blood Urea Nitrogen 34H, Creatinine 1.61H, Estimat Glomerular Filtration Rate 31, BUN/Creatinine Ratio 21, Glucose Level 164H, Calcium Level 7.5L, Phosphorus Level 3.1, Magnesium Level 1.9 06/04/19 11:15: Glucometer 154H 06/04/19 17:41: Glucometer 168H Microbiology 06/02/19 Blood Culture - Preliminary, Resulted No growth 05/30/19 Gram Stain - Final, Complete 05/30/19 Sputum Culture - Final, Complete Usual upper respiratory pau 06/02/19 Urine Culture - Final, Complete NO GROWTH Assessment/Plan Assessment/Plan Assessment/Plan s/p exploratory lap, sigmoid resection and end colostomy appendectomy Improved urine output resp failure-extubated villalba for accurate i/o possible pneumonia continue on abx guarded prognosis Clinical Quality Measures DVT/VTE Risk/Contraindication: Risk Factor Score Per Nursin RFS Level Per Nursing on Admit: 3=High NAJMA SANTOS DO 06/04/19 2205: Subjective Subjective/Events-last exam Patient with slight colostomy output. Urine output improving. WBC slightly down. Patient with pain about 8/10. Very edematous. No family at bedside. Objective Exam General Appearance: No Apparent Distress, Other HEENT: PERRL/EOMI Neck: Non Tender Respiratory: Chest Non Tender, No Accessory Muscle Use, No Respiratory Distress Cardiovascular: Regular Rate, Rhythm, Other (Edematous) Gastrointestinal: tenderness (incisinoal, minimal serous fluid from incision), other (Colostomy has some output. ) Extremity: Normal Inspection (except edema) Neurologic/Psychiatric: Alert Skin: Warm/Dry Lymphatic: No Adenopathy Assessment/Plan Assessment/Plan Assessment/Plan s/p ex lap sigmoid resection and end colostomy appendectomy acute renal failure- urine improving resp failure exstubated lll pneumonia on zosyn anemia- follow since stool output will dc ng tube and start on clears villalba for accurate i/o wbc imrproving slowly continue to monitor Supervisory-Addendum Brief Verification & Attestation Participated in pt care: history, MDM, physical Personally performed: exam, history, MDM, supervision of care Care discussed with: Medical Student Procedures: n/a Results interpretation: Verified all documentation Verification and Attestation of Medical Student E/M Service A medical student performed and documented this service in my presence. I reviewed and verified all information documented by the medical student and made modifications to such information, when appropriate. I personally performed the physical exam and medical decision making. Najma Santos, Jun 04, 2019,22:09 [facility] Jun 04, 2019 19:54 NAJMA SANTOS DO Jun 04, 2019 22:05
[2019-06-05] VITALS (24 sets, daily range): BP systolic 95–164; BP diastolic 72–119
[2019-06-05] MEDS: inSUlin ASPART (NovoLOG) 1 UNIT/0.01 ML (CHARGE PER UNIT) SC SCH ×5 (00:15→21:10)
[2019-06-05] MEDS: meTOprolol 5 MG/5 ML (LOPRESSOR) VIAL IV SCH ×5 (00:40→23:25)
[2019-06-05] MEDS: fentaNYL INJECTION 100 MCG/2 ML AMP IV PRN ×5 (01:07→20:11)
[2019-06-05] MEDS: D5 LR IV SOLUTION 1,000 ML IV SCH ×2 (01:39→13:40)
[2019-06-05] MEDS: MAGNESIUM 1 GM/100 ML IVPB 100 ML IV SCH (02:08)
[2019-06-05] MEDS: POTASSIUM CL 10MEQ/50ML IVPB 50 ML IV SCH (02:08)
[2019-06-05] MEDS: KCL 20 MEQ TAB (K-DUR) PO SCH (02:08)
[2019-06-05 03:12] LABS: BASOPHILS % (AUTO) 0 % (0-10); EOSINOPHILS # (AUTO) 0.1 10^3/uL (0.0-0.3); EOSINOPHILS % (AUTO) 1 % (0-10); HEMATOCRIT 27 % (35-52); HEMOGLOBIN 8.4 G/DL (11.5-16.0); LYMPHOCYTES # (AUTO) 1.9 X 10^3 (1.0-4.0); LYMPHOCYTES % (AUTO) 12 % (12-44); MEAN CORPUSCULAR HEMOGLOBIN 30 PG (25-34); MEAN CORPUSCULAR HGB CONC 31 G/DL (32-36); MEAN CORPUSCULAR VOLUME 98 FL (80-99); MONOCYTES # (AUTO) 1.3 X 10^3 (0.0-1.0); MONOCYTES % (AUTO) 8 % (0-12); NEUTROPHILS # (AUTO) 12.8 X 10^3 (1.8-7.8); NEUTROPHILS % (AUTO) 80 % (42-75); PLATELET COUNT 111 10^3/uL (130-400); RED CELL DISTRIBUTION WIDTH 15.3 % (10.0-14.5); WHITE BLOOD COUNT 16.1 10^3/uL (4.3-11.0)
[2019-06-05 03:31] LABS: CALCIUM 7.4 MG/DL (8.5-10.1); CREATININE SERUM 1.53 MG/DL (0.60-1.30); MAGNESIUM 1.9 MG/DL (1.6-2.4); PHOSPHORUS 2.8 MG/DL (2.3-4.7); POTASSIUM 3.8 MMOL/L (3.6-5.0)
[2019-06-05] MEDS: HYDROmorphone 2 MG/ML VIAL (DILAUDID) IV PRN ×2 (04:27→11:18)
--- NOTE | 2019-06-05 05:02 | Pulmonary Progress Note ---
Subjective Time Seen by a Provider: 06:28 Subjective/Events-last exam Pt appears slightly better. Sepsis Event Evaluation Height, Weight, BMI Height: 5'2.00" Weight: 200lbs. 0.0oz. 90.983107by; 38.69 BMI Method: Focused Exam Lactate Level 06/02/19 06:45: Lactic Acid Level 2.22*H 06/02/19 09:25: Lactic Acid Level 2.29*H Exam Exam Vital Signs Date Time Temp Pulse Resp B/P (MAP) Pulse Ox O2 Delivery O2 Flow Rate FiO2 06/05/19 04:00 59 16 161/93 (115) 100 Nasal Cannula 3.00 06/05/19 04:00 94 Nasal Cannula 3.00 06/05/19 03:00 64 12 156/87 (110) 98 Nasal Cannula 3.00 06/05/19 02:00 60 13 135/79 (97) 91 Nasal Cannula 3.00 06/05/19 01:00 60 06/05/19 01:00 60 16 135/83 (100) 99 Nasal Cannula 3.00 06/05/19 00:00 64 16 149/89 (109) 96 Nasal Cannula 3.00 06/05/19 00:00 93 Nasal Cannula 3.00 06/04/19 23:54 Nasal Cannula 2.00 06/04/19 23:00 61 13 146/91 (109) 96 Nasal Cannula 3.00 06/04/19 22:00 67 20 159/91 (113) 94 Nasal Cannula 3.00 06/04/19 21:00 64 17 156/97 (116) 96 Nasal Cannula 3.00 06/04/19 20:00 67 14 137/75 (95) 96 Nasal Cannula 3.00 06/04/19 20:00 93 Nasal Cannula 3.00 06/04/19 19:52 37.0 06/04/19 19:29 36.3 68 18 158/94 (115) 95 Nasal Cannula 3.00 06/04/19 19:00 67 06/04/19 18:00 61 17 140/83 (102) 95 Nasal Cannula 3.00 06/04/19 17:00 65 13 143/88 (106) 93 Nasal Cannula 3.00 06/04/19 16:00 94 Nasal Cannula 3.00 06/04/19 16:00 71 15 145/82 (103) 92 Nasal Cannula 3.00 06/04/19 15:40 37.0 06/04/19 15:00 69 16 146/82 (103) 96 Nasal Cannula 3.00 06/04/19 14:00 69 19 141/78 (99) 100 Nasal Cannula 3.00 06/04/19 13:00 62 22 120/75 (90) 90 Nasal Cannula 3.00 06/04/19 13:00 62 06/04/19 12:00 94 Nasal Cannula 3.00 06/04/19 12:00 59 12 130/77 (94) 92 Nasal Cannula 3.00 06/04/19 11:30 36.3 06/04/19 11:00 74 19 146/82 (103) 94 Nasal Cannula 3.00 06/04/19 10:00 70 14 146/83 (104) 96 Nasal Cannula 3.00 06/04/19 09:00 65 14 157/86 (109) 95 Nasal Cannula 3.00 06/04/19 08:00 94 Nasal Cannula 3.00 06/04/19 08:00 69 10 152/90 (110) 96 Nasal Cannula 3.00 06/04/19 08:00 36.0 06/04/19 07:00 71 06/04/19 07:00 71 17 142/89 (106) 96 Nasal Cannula 3.00 06/04/19 06:00 13 137/82 (100) 95 Nasal Cannula 3.00 06/04/19 05:00 68 15 126/87 (100) 94 Nasal Cannula 3.00 I & O 06/05/19 07:00 Intake Total 2650 ml Output Total 1075 ml Balance 1575 ml Height & Weight Height: 5'2.00" Weight: 200lbs. 0.0oz. 90.196360mx; 38.69 BMI Method: General Appearance: Mild Distress, Other HEENT: PERRL/EOMI Neck: Non Tender Respiratory: Chest Non Tender, No Accessory Muscle Use, No Respiratory Distress Cardiovascular: Regular Rate, Rhythm, Other (Edematous) Capillary Refill: Less Than 3 Seconds Gastrointestinal: tenderness (incisinoal, minimal serous fluid from incision), other (Colostomy has some output. ) Extremity: Normal Inspection (except edema), Pedal Edema Neurologic/Psychiatric: Alert Skin: Warm/Dry Lymphatic: No Adenopathy Results Lab Laboratory Tests 06/04/19 03:10 10/9/19 03:09 Assessment/Plan Assessment/Plan PNA LLL -Rocephin and Flagyl auto d/c'd and WBC is up to 20 -Continue Zosyn x 7days started 04/02 for pneumonia -Repan culture pending New onset Afib RVR - now converted -Amio Cardiomyopathy EF 25% with hypotension -PT is doing well pulmonary hill. Acute renal failure with decreased UO - monitor closely -Decrease IVF and monitor UO -Will give 0.5mg of Bumex BID Hypoalbuminemia secondary to protein shelli malnutrition -Diet per surgery -Consider TPN if NPO status is going to continue. Acute sigmoid perforation s/p surgical repair - Eraxis NSTEMI -Cardiology following Hypothyroid - Synthroid IV while pt is NPO Anemia -Monitor Diverticulitis/colitis UTI with klebsiella TANJA MACHADO DO Jun 05, 2019 05:02
[2019-06-05 05:17] LABS: ALBUMIN 2.5 GM/DL (3.2-4.5); BILIRUBIN,TOTAL 0.9 MG/DL (0.1-1.0); TOTAL PROTEIN 4.4 GM/DL (6.4-8.2)
[2019-06-05] MEDS: PIPERACILLIN/TAZOBACTAM (BULK) 4.5 GM in NS (IVPB) 100 ML IV SCH ×3 (05:45→21:11)
[2019-06-05] MEDS: BUMETANIDE 1 MG/4 ML (BUMEX) VIAL IV SCH ×2 (08:13→20:11)
[2019-06-05] MEDS ORDERED: TPN IV SCH (08:15)
[2019-06-05] MEDS: LEVOTHYROXINE 100 MCG INJ (SYNTHROID) VIAL IV SCH (08:15)
--- NOTE | 2019-06-05 08:35 | ST Dysphagia Evaluation ---
Speech Evaluation-General Medical Diagnosis bowel perforation Onset Date: May 30, 2019 Therapy Diagnosis Therapy Diagnosis: Oropharyngeal Dysphagia Precautions Precautions: Aspiration Precautions/Isolations: Aspiration, Standard Precautions Referral Referring Physician: Dr. Moran Reason for Referral: Evaluation/Treatment Medical History Pertinent Medical History: HTN HTN Current History Bowel perforation Reviewed History: Yes Social History Home: Single Level Current Living Status: Children Speech PLF/Current-Dysphagia Prior Level of Function Patient lived with her children where her needs were met with assistance as needed. Subjective Patient had just received her pain meds, however she was able to participate fully with the Bedside Dysphagia Evaluation. Cognitive Status Patient Orientation: Person, Place, Situation Oral Motor Skills Dentition: Natural Ability to Follow Directions: Good Patient was on clear liquids pending the Bedside Dysphagia Evaluation Oral Expression Ability: No Impairment Voice Voice Phonatory-Based Quality: Breathy Voice Pitch: Normal Voice Loudness: Mildly Soft/Quiet Face Facial Symmetry: Symmetrical Oral-Facial Assessment Oral-Facial Dentition: Normal Smile: Normal Puff Cheeks: Reduced Strength Lingual Protrusion: Normal Lingual ROM: Normal Lingual Strength: Normal Pharynx Velopharyngeal Move.: Normal Can Clear Throat Volitionally: Yes Dysphagia Evaluation Consistencies Presented: Regular, Thin Liquid, Mechanical Soft, Pureed Oral phase is within normal range of function. Pharyngeal phase is within normal range of function. Dietary Recommendations: Regular Liquid Recommendations: Thin Swallowing Precautions: Alternate Liquids/Solids, Decreased Rate of Oral Intake, Liquids from Straw, Small Bites and Sips, Sitting Upright 90 Degrees, Sitting 90 Degrees 30 Post Intake Dysphagia Evaluation Summary Patient was admitted to the ICU s/p bowel obstruction. Patient was extubated yesterday and allowed clear liquids pending the BDE. BDE was completed this morning with 1/2 tsp of thin liquids x2 without difficulty. Patient was presented small sips via straw, given verbal cues, without difficulty. Patient was given 1/2 tsp bites of puree, mechanical soft and regular without difficulty. Patient exhibits good oral clearing with each swallow. Patient will be on regular with thin liquids. This was written on the white board in patient's room as well as nursing notification. Barriers to Learning Patient has had a complex medical status with intubation. Speech-Plan Patient/Family Goals Patient/Family Goals: Patient plans on returning to her children's home upon discharge. Treatment Plan Speech Therapy Treatment Plan: Discontinue ST Patient does not require continued services of ST at this time. Treatment Duration: Jun 05, 2019 Frequency: 1 time per week Estimated Hrs Per Day: .25 hour per day Rehab Potential: Guarded Barriers to Learning: Patient has had a complex medical status with intubation. Pt/Family Agrees to Plan: Yes Safety Risks/Education Teaching Recipient: Patient Teaching Methods: Demonstration, Discussion Response to Teaching: Verbalize Understanding, Return Demonstration Education Topics Provided: Safety of oral intake and diet level Time Speech Therapy Time In: 08:00 Speech Therapy Time Out: 08:15 Total Billed Time: 15 Billed Treatment Time GinnyLEONIE BETHANIA ST Jun 05, 2019 08:35
[2019-06-05] MEDS: PANTOPRAZOLE 40 MG (PROTONIX) VIAL IV SCH (08:57)
--- NOTE | 2019-06-05 09:09 | Diagnostic Imaging Report ---
PROCEDURE: CT abdomen and pelvis without contrast. TECHNIQUE: Multiple contiguous axial images were obtained through the abdomen and pelvis without the use of intravenous contrast. Auto Exposure Controls were utilized during the CT exam to meet ALARA standards for radiation dose reduction. INDICATION: Abdominal pain with nausea and vomiting and diverticulitis. Correlation is made with prior CT from 05/29/2019. Imaging through the lung bases demonstrates development of small bilateral pleural effusions with some associated bibasilar infiltrates or atelectasis. The liver is unremarkable. The gallbladder is surgically absent. No biliary duct dilatation is seen. Pancreas and spleen are unremarkable. No adrenal mass is detected. Kidneys are without evidence of calculi or hydronephrosis. Aorta is non-aneurysmal. Postsurgical changes of the abdomen are noted. There is now an ostomy in the left lower quadrant. Visualized abdominal bowel loops are decompressed. There is no evidence of obstruction. No free fluid or loculated fluid collection is identified apart from minimal free fluid in the pelvis with mild presacral soft tissue thickening. The bladder is decompressed. There is a small amount of free air in the midline lower pelvis likely from recent surgery. Large amount of artifact in the pelvis is noted from patient's right hip prosthesis. Diffuse edema in the subcutaneous tissues noted consistent with anasarca. IMPRESSION: 1. Postsurgical changes to the abdomen, as described. There is no evidence of bowel obstruction or abscess formation. 2. Development of small bilateral pleural effusions with bibasilar infiltrates or atelectasis. 3. Anasarca. Dictated by: Dictated on workstation # [id number]
--- NOTE | 2019-06-05 09:17 | Cardiology Progress Note ---
Subjective Date Seen by Provider: Jun 05, 2019 Time Seen by Provider: 09:16 Subjective/Events-last exam patient is laying down in bed, still having generalized weakness, abdominal pain, feeling slightly better. Review of Systems General: No Chills, No Night Sweats; Fatigue, Malaise; No Appetite, No Other HEENT: No Head Aches, No Visual Changes, No Eye Pain, No Ear Pain, No Dysphasia, No Sinus Congestion, No Post Nasal Drip, No Sore Throat, No Other Pulmonary: No Dyspnea, No Cough, No Pleuritic Chest Pain, No Other Cardiovascular: No: Chest Pain, Palpitations, Orthopnea, Paroxysmal Noc. Dyspnea, Edema, Lt Headedness, Other Focused Exam Lactate Level 06/02/19 09:25: Lactic Acid Level 2.29*H Objective-Cardiology Exam Last Set of Vital Signs Vital Signs 06/02/19 06/04/19 06/05/19 01:07 19:52 06:00 Temp 37.0 Pulse 56 Resp 17 B/P (MAP) 129/72 (91) Pulse Ox 96 O2 Delivery Nasal Cannula O2 Flow Rate 3.00 FiO2 35 Capillary Refill : Less Than 3 SecondsLess Than 3 Seconds I&O Intake and Output 06/05/19 00:00 Intake Total 3030 ml Output Total 1466 ml Balance 1564 ml Intake Oral 270 ml IV Total 2700 ml Other 60 ml Output Urine Total 1376 ml Stool Total 90 ml General: Alert, Oriented X3, Cooperative, Mild Distress HEENT: Atraumatic, PERRLA Neck: Supple, No JVD Lungs: Normal Air Movement, Other (Bilateral rhonchi) Heart: Regular Rate, Normal S1, Normal S2 Abdomen: Other (Diminished bowel sounds) Extremities: No Clubbing, No Cyanosis Skin: No Rashes, No Breakdown Neuro: Normal Speech, Sensation Intact Results Lab Laboratory Tests 06/05/19 03:09 A/P-Cardiology Admission Diagnosis Septic shock Type II ME Diverticulitis Hypertension Assessment/Plan Type II myocardial infarction probably secondary to hypoxemia, hypotension and tachycardia, conservative management. Continue to monitor Pneumonia, receiving antibiotics, managed by primary care team Status post acute respiratory failure, extubated on June 01, 2019, breathing better at this time, improving. Managed by primary care team Transient atrial fibrillation occurred on May 30, 2019, converted to sinus rhythm on amiodarone drip. Still have NG tube. Diverticulitis, small bowel obstruction, perforation and appendicitis, had surgical appendectomy with colon resection and decompression. Hypotensive shock combination between septic and cardiogenic shock, better at this time, borderline hypertensive. Continue to monitor Severe cardiomyopathy with severe left ventricular systolic dysfunction, probably ischemic in nature, cannot tolerate beta blockers, DAVID inhibitor and/or ARB to the hypotension, echo showed ejection fraction 25-30 percent, moderate tricuspid regurgitation, PA 45 mmHg, will need cardiac catheterization once clinically stable History of hypertension, continue to monitor blood pressure. History of hyperlipidemia, has been on simvastatin as an outpatient Hypothyroidism contained on levothyroxin Clinical Quality Measures DVT/VTE Risk/Contraindication: Risk Factor Score Per Nursin RFS Level Per Nursing on Admit: 3=High HAL DOUGLAS MD Jun 05, 2019 09:17
--- NOTE | 2019-06-05 09:20 | Diagnostic Imaging Report ---
INDICATION: Dyspnea. TIME OF EXAM: 4:13 AM Correlation is made with prior chest from one day earlier. FINDINGS: Right-sided line has tip overlying the SVC. The heart size is stable. Left basilar infiltrate or atelectasis persists and is similar to perhaps minimally improved when compared with yesterday. Upper lung stokes are clear. No effusion or pneumothorax is seen. IMPRESSION: Stable chest since exam one day earlier. Dictated by: Dictated on workstation # [id number]
--- NOTE | 2019-06-05 11:01 | NUR ---
Dr. Gómez ordered LTAC referral. F/U with Dr. Santos and Dr. Moran who are in agreement. All voice that patient is making improvements but that her recovery will be a slow process. She will need Physical therapy, Occupational therapy, wound care from recent abdominal surgery, monitoring of small to moderate plural effusions, wound is also leaking large amounts of serosanguineous from confirmed anasarca, Nutritional monitoring as well. She is currently on a clear liquid diet. Talked with Loretta about the referral et she is in agreement. Have left a message with her daughter Josefina Pickett to also discuss this referral. Jack Bryan notified et has referral packet. Anticipate discharge to LTAC tomorrow 06/06 if accepted.
--- NOTE | 2019-06-05 13:12 | Progress Note ---
Subjective Subjective Date Seen by Provider: Jun 05, 2019 Time Seen by Provider: 13:12 78 yo F reports she is doing better- glad to get to drink fluids again. Pain in her abdomen has increased a little bit since she has drank some fluids. Review of Systems General: Fatigue, Malaise HEENT: No Head Aches, No Visual Changes, No Dysphasia Pulmonary: Dyspnea Cardiovascular: Edema; No: Chest Pain, Palpitations Gastrointestinal: Nausea (improved), Abdominal Pain; No: Vomiting Genitourinary: No Dysuria Neurological: Weakness; No: Change in speech, Confusion All Other Systems Reviewed All Other Systems Reviewed: Yes Objective Exam Vital Signs Vital Signs Date Time Temp Pulse Resp B/P (MAP) Pulse Ox O2 Delivery O2 Flow Rate FiO2 06/05/19 12:00 133 18 112/93 (99) 95 Vapotherm 35.00 40.00 06/05/19 12:00 36.0 06/05/19 11:00 133 39 139/112 (121) 90 Nasal Cannula 3.00 06/05/19 10:00 179 24 108/80 (89) 97 Nasal Cannula 3.00 06/05/19 09:00 186 21 95/79 (84) 96 Nasal Cannula 3.00 06/05/19 08:15 94 Nasal Cannula 3.00 06/05/19 08:00 121 17 108/75 (86) 99 Nasal Cannula 3.00 06/05/19 08:00 36.4 06/05/19 07:00 118 15 104/85 (91) 100 Nasal Cannula 3.00 06/05/19 06:00 56 17 129/72 (91) 96 Nasal Cannula 3.00 06/05/19 05:00 62 20 137/102 (114) 94 Nasal Cannula 3.00 06/05/19 04:00 59 16 161/93 (115) 100 Nasal Cannula 3.00 06/05/19 04:00 94 Nasal Cannula 3.00 06/05/19 03:00 64 12 156/87 (110) 98 Nasal Cannula 3.00 06/05/19 02:00 60 13 135/79 (97) 91 Nasal Cannula 3.00 06/05/19 01:00 60 06/05/19 01:00 60 16 135/83 (100) 99 Nasal Cannula 3.00 06/05/19 00:00 64 16 149/89 (109) 96 Nasal Cannula 3.00 06/05/19 00:00 93 Nasal Cannula 3.00 06/04/19 23:54 Nasal Cannula 2.00 06/04/19 23:00 61 13 146/91 (109) 96 Nasal Cannula 3.00 06/04/19 22:00 67 20 159/91 (113) 94 Nasal Cannula 3.00 06/04/19 21:00 64 17 156/97 (116) 96 Nasal Cannula 3.00 06/04/19 20:00 67 14 137/75 (95) 96 Nasal Cannula 3.00 06/04/19 20:00 93 Nasal Cannula 3.00 06/04/19 19:52 37.0 06/04/19 19:29 36.3 68 18 158/94 (115) 95 Nasal Cannula 3.00 06/04/19 19:00 67 06/04/19 18:00 61 17 140/83 (102) 95 Nasal Cannula 3.00 06/04/19 17:00 65 13 143/88 (106) 93 Nasal Cannula 3.00 06/04/19 16:00 94 Nasal Cannula 3.00 06/04/19 16:00 71 15 145/82 (103) 92 Nasal Cannula 3.00 06/04/19 15:40 37.0 06/04/19 15:00 69 16 146/82 (103) 96 Nasal Cannula 3.00 06/04/19 14:00 69 19 141/78 (99) 100 Nasal Cannula 3.00 I & O 06/05/19 07:00 Intake Total 2750 ml Output Total 1345 ml Balance 1405 ml General Appearance: Mild Distress, Other (tired) HEENT: PERRL/EOMI, Other (ET tube in place) Neck: Normal Inspection Respiratory: Lungs Clear, Normal Breath Sounds, No Respiratory Distress Cardiovascular: Regular Rate, Rhythm, No Murmur Gastrointestinal: Normal Bowel Sounds, Soft; No Distended, No Guarding; Tenderness Rectal: Deferred Extremity: Normal Inspection, Non Tender, Pedal Edema Neurologic/Psychiatric: Alert Skin: Normal Color, Warm/Dry Lymphatic: No Adenopathy Results Lab Laboratory Tests 06/04/19 17:41: Glucometer 168H 06/05/19 03:09: White Blood Count 16.1H, Red Blood Count 2.77L, Hemoglobin 8.4L, Hematocrit 27L, Mean Corpuscular Volume 98, Mean Corpuscular Hemoglobin 30, Mean Corpuscular Hemoglobin Concent 31L, Red Cell Distribution Width 15.3H, Platelet Count 111L, Mean Platelet Volume 12.0H, Neutrophils (%) (Auto) 80H, Lymphocytes (%) (Auto) 12, Monocytes (%) (Auto) 8, Eosinophils (%) (Auto) 1, Basophils (%) (Auto) 0, Neutrophils # (Auto) 12.8H, Lymphocytes # (Auto) 1.9, Monocytes # (Auto) 1.3H, Eosinophils # (Auto) 0.1, Basophils # (Auto) 0.0, Sodium Level 142, Potassium Level 3.8, Chloride Level 106, Carbon Dioxide Level 27, Anion Gap 9, Blood Urea Nitrogen 32H, Creatinine 1.53H, Estimat Glomerular Filtration Rate 33, BUN/Creatinine Ratio 21, Glucose Level 146H, Calcium Level 7.4L, Corrected Calcium 8.6, Phosphorus Level 2.8, Magnesium Level 1.9, Total Bilirubin 0.9, As partate Amino Transf (AST/SGOT) 23, Alanine Aminotransferase (ALT/SGPT) 23, Alkaline Phosphatase 245H, Total Protein 4.4L, Albumin 2.5L 06/05/19 03:15: Thyroid Stimulating Hormone (TSH) 5.63H 06/05/19 04:51: Triglycerides Level 166H 06/05/19 06:20: 06/05/19 11:12: Glucometer 142H Microbiology 06/02/19 Blood Culture - Preliminary, Resulted No growth 05/30/19 Gram Stain - Final, Complete 05/30/19 Sputum Culture - Final, Complete Usual upper respiratory pau 06/02/19 Urine Culture - Final, Complete NO GROWTH Assessment/Plan Assessment/Plan Admission Dx intractable abdominal pain diverticulitis urinary tract infection Assessment and Plan 05/27/19 IVF, NPO- monitor respiratory status with the IVF. Rechecking labs in the AM continue metronidazole and rocephin- checking blood cultures and urine cultures. 05/28/19- SVT overnight- resolved. WBC still elevated. No fevers since yesterday. Cr still 1.4. Abdominal pain improved compared to admission. 05/29/19- Cr improved to 1.27, WBC back down to 23K- will continue to trend. Temp yesterday evening was 37.9C- Still on metronidazole and ceftriaxone. Urine culture growing gram negative- awaiting antibiotic coverage. Blood cult ures negative to date. -will try 5mg ambien to help her sleep tonight. -will add on metoclopramide daily to see if it will help with nausea and stimulate her GI tract to get back to functioning. 05/30/19- ST with PVC. Dr. Hills consulted- troponin initially elevated; normal on repeat- ex lap converted to open- appendix removed and colostomy placed for bowel resection due to diverticulitis perforation and small bowel obstruction. 05/31/19- Dr Moran consulted for ICU/vent management- not improved enough to wean/extubate- Pulm to re-evaluate in AM. 06/01-02/13- extubated, antibiotic coverage changed to zosyn. Doing well on nasal canula oxygen. transfused 1 unit pRBC 06/03/19- improvement over the weekend. Continue zosyn. Continue ivf. Monit oring labs. Recheck labs in AM. Continue respiratory support as needed- levothyroxine being replaced IV. 06/04/19- pt is reporting she is hungry- kidney function improving with improved UOP. WBC continue to trend down. 06/05/19- working on LTAC placement- pt passed speech/swallow test- she will be on regular diet. DVT ppx: scds Prognosis: improved. Problems: (1) Diverticulitis of intestine with perforation (2) Shock (3) NSTEMI (non-ST elevation myocardial infarction) (4) HFrEF (heart failure with reduced ejection fraction) (5) Atrial fibrillation with RVR (6) Acute respiratory failure with hypoxia (7) UTI due to Klebsiella species (8) Acute on chronic kidney failure Qualifiers: Qualified Codes: N17.0 - Acute kidney failure with tubular necrosis; N18.3 - Chronic kidney disease, stage 3 (moderate) (9) Hypokalemia (10) Hypernatremia (11) Lactic acidosis (12) ATN (acute tubular necrosis) (13) Hypothyroid Admission Dx intractable abdominal pain diverticulitis urinary tract infection Clinical Quality Measures Admission Status Admission Dx intractable abdominal pain diverticulitis urinary tract infection DVT/VTE Risk/Contraindication: Risk Factor Score Per Nursin RFS Level Per Nursing on Admit: 3=High MADYSON HERMAN MD Jun 05, 2019 13:12
--- NOTE | 2019-06-05 14:20 | NUR ---
DR MALCOLM CALLED NEW ORDERS RECEIVED. SEE ORDER HX.
[2019-06-05] MEDS: HYDROcodone/APAP 5 MG/325 MG (LORTAB) TAB PO PRN ×2 (14:28→23:23)
--- NOTE | 2019-06-05 14:41 | Occupational Therapy Eval ---
OT Evaluation-General/PLF Medical Diagnosis Admission Date May 27, 2019 at 15:22 Medical Diagnosis: bowel perforation Onset Date: May 30, 2019 Therapy Diagnosis Therapy Diagnosis: impaired ADLs and mobility Height/Weight Height (Feet): 5 Height (Inches): 2.00 Weight (Pounds): 200 Weight (Ounces): 0.0 Precautions Precautions/Isolations: Aspiration, Standard Precautions Safety Interventions: None Referral Physician: Tom Referral Reason: Activity Tolerance, Self Care, Evaluation/Treatment Medical History Pertinent Medical History: HTN Current History Per H&P: "Patient is an 78-year-old female admitted for intractable abdominal pain. A CT was performed in the ER which showed diverticulitis and colitis. She was started on IV fluids and metronidazole. Rocephin was also started as a urinalysis also demonstrated a urinary tract infection. She was given fentanyl IV which also helped with the abdominal pain. Patient recently had a right hip replacement which she has been struggling with the pain with this as well. She has been taking hydrocodone for this pain. It has been prescribed by myself which likely contributed to her ileus. Last time she ate food was 05/22/19- last bowel movement 05/27/19- prior to this she had not had a bowel movement for 5 days. She become nauseous and vomiting bilious fluid after being admitted to [address] Santos was consulted and will follow along with the case. She'll be nothing by mouth and repeating labs in the morning." Reviewed History: Yes Social History Home: Single Level Current Living Status: Children Entry Into Home: Level Entry ADL-Prior Level of Function SCALE: Activities may be completed with or without assistive devices. 5-Nlsbyyhide-bbzdqtg completes the activity by him/herself with no assistance from a helper. 5-Set-up or Clean-up Assistance-helper sets up or cleans up; patient completes activity. [place] assists only prior to or following the activity. 4-Supervision or Touching Assistance-helper provides verbal cues and/or t ouching/steadying and/or contact guard assistance as patient completes activity. Assistance may be provided throughout the activity or intermittently. 3-Partial/Moderate Assistance-helper does LESS THAN HALF the effort. Rutledge lifts, holds or supports trunk or limbs, but provides less than half the effort. 2-Substantial/Maximal Assistance-helper does MORE THAN HALF the effort. [place]ledge lifts or holds trunk or limbs and provides more than half the effort. 4-Aojkzmwke-zrrckx does ALL the effort. Patient does none of the effort to complete the activity. Or, the assistance of 2 or more helpers is required for the patient to complete the activity. If activity was not attempted, code reason: 7-Patient Refused. 9-Not Applicable-not attempted and the patient did not perform the activity before the current illness, exacerbation or injury. 10-Not Attempted due to Environmental Limitations-(lack of equipment, weather restraints, etc.). 88-Not Attempted due to Medical Conditions or Safety Concerns. ADL PLOF Comments Pt reported she lives at home with her daughter, used a walker for functional mobility. Pt reports she was able to complete bathing, dressing, and cooking without assistance from others. Pt has a sock aid to help marbella socks, a shower bench to sit on while showering and a paperhanger contractor to pick objects off of the floor. Self Care: Independent Functional Cognition: Independent DME/Equipment: Bath Bench Drive Self: Yes OT Current Status Subjective Nursing stated pt was able to be seen for OT eval. pt laying in bed at start of session, agreeable to OT eval on this date. Mental Status/Objective Patient Orientation: Person, Place, Time, Situation Current Glasses/Contacts: Yes Hearing Aids: No Dentures/Partials: No Upper Extremity ROM Pt unable to bring right hand to mouth to brush teeth, she was able to reach left UE up enough to get toothbrush into mouth and complete oral hygiene, noted decreased functional endurance and fatigue. Upper Extremity Coordination BUE within functional limits Upper Extremity Sensation Pt did not report any changes in sensation this session, noted edema present BUE. Upper Extremity Strength 2/5 BUE Edema: edema present BUE ADL-Treatment Oral Hygiene (QC): 2 (OT placed tooth paste on toothbrush for pt and placed in pt's hand, pt able to bring left hand to mouth to complete task but did not perform thoroughly.) Shower/Bathe Self (QC): 1 (OT placed washcloth in pt's hand, pt unable to lift washcloth to wash body.) Other Treatments Pt laying in bed at start of session, provided information for OT eval. Pt completed oral hygiene at bed level and attempted to complete showering using warm washcloth. SOB noted with task and decreased functional endurance. OT encouraged pt to trial sitting EOB, pt pleasantly declined stating she did not think she would be able to. Post OT session, pt laying in bed, call light in reach and all needs met. Education OT Patient Education: Correct positioning, Energy conservation, Modified ADL techniques, Progress toward Goal/Update tx plan, Purpose of tx/functional activities Teaching Recipient: Patient Teaching Methods: Discussion Response to Teaching: Verbalize Understanding OT Short Term Goals Short Term Goals Time Frame: Jun 19, 2019 Bathing(FIM): 2 Upper Body Dressing(FIM): 3 Lower Body Dressing(FIM): 2 Transfers (B,C,W/C) (FIM): 2 1=Demonstrate adherence to instructed precautions during ADL tasks. 2=Patient will verbalize/demonstrate understanding of assistive devices/modifications for ADL. 3=Patient will improve strength/tolerance for activity to enable patient to perform ADL's. OT Mcfp Goals Bundle Clerk Goals Time Frame: Jul 03, 2019 Oral Hygiene (QC): 6 Shower/Bathe Self (QC): 4 Upper Body Dressing (QC): 5 Lower Body Dressing (QC): 5 On/Off Footwear (QC): 5 Toileting Hygiene (QC): 6 Toilet/Commode Transfer (QC): 4 Additional Goals: 1-Demonstrate ADL Tasks, 2-Verbalize Understanding, 3- ImproveStrength/[place] 1=Demonstrate adherence to instructed precautions during ADL tasks. 2=Patient will verbalize/demonstrate understanding of assistive devices/modifications for ADL. 3=Patient will improve strength/tolerance for activity to enable patient to perform ADL's. OT Education/Plan Problem List/Assessment Assessment: Decreased Activ Tolerance, Decreased UE Strength, Dependent Tr ansfers, Impaired Bed Mobility, Impaired Funct Balance, Impaired I ADL's, Impaired Self-Care Skills, Restricted Funct UE ROM Pt would benefit from skilled OT services in order to increase independence in ADLs and functional mobility. Discharge Recommendations Plan/Recommendations: Continue POC Therapy Discharge Recommendati: Post Acute OT Treatment Plan/Plan of Care Treatment,Training & Education: Yes Patient would benefit from OT for education, treatment and training to promote independence in ADL's, mobility, safety and/or upper extremity function for ADL's. Plan of Care: ADL Retraining, Caregiver Training, Functional Mobility, UE Funct Exercise/Act Treatment Duration: Jul 03, 2019 Frequency: 5 times per week Estimated Hrs Per Day: .25 hour per day Agreement: Yes Rehab Potential: Guarded Time/GCodes Start Time: 14:10 Stop Time: 14:18 Total Time Billed (hr/min): 8 Billed Treatment Time 1, EVM x8min KENISHA RAYMUNDO OT Jun 05, 2019 14:41
--- NOTE | 2019-06-05 14:51 | Progress Note - Surgery ---
MORENITA HERNANDEZ [facility] 06/05/19 1451: Subjective Date Seen by a Provider: Jun 05, 2019 Time Seen by a Provider: 07:20 Subjective/Events-last exam Patient is doing better. Continues to have increase in energy. Still has pain in abdomen. Rates it as an 8/10. Incision has no erythema and is healing appropriately. Colostomy has some stool output. Patient denies shortness of breath, chest pain, n/v, fevers or chills. WBC is 16.1. Hgb at 8.4. Urine output yesterday had increased to 0.40 ml/kg/hr. Review of Systems General: No Chills, No Other (fevers) Pulmonary: No Dyspnea, No Cough Cardiovascular: No: Chest Pain Gastrointestinal: Abdominal Pain; No: Nausea, Vomiting Objective Exam Vital Signs Date Time Temp Pulse Resp B/P (MAP) Pulse Ox O2 Delivery O2 Flow Rate FiO2 06/05/19 12:35 94 Nasal Cannula 3.00 06/05/19 12:00 133 18 112/93 (99) 95 Vapotherm 35.00 40.00 06/05/19 12:00 36.0 06/05/19 11:00 133 39 139/112 (121) 90 Nasal Cannula 3.00 06/05/19 10:00 179 24 108/80 (89) 97 Nasal Cannula 3.00 06/05/19 09:00 186 21 95/79 (84) 96 Nasal Cannula 3.00 06/05/19 08:15 94 Nasal Cannula 3.00 06/05/19 08:00 121 17 108/75 (86) 99 Nasal Cannula 3.00 06/05/19 08:00 36.4 06/05/19 07:00 118 15 104/85 (91) 100 Nasal Cannula 3.00 06/05/19 06:53 69 06/05/19 06:00 56 17 129/72 (91) 96 Nasal Cannula 3.00 06/05/19 05:00 62 20 137/102 (114) 94 Nasal Cannula 3.00 06/05/19 04:00 59 16 161/93 (115) 100 Nasal Cannula 3.00 06/05/19 04:00 94 Nasal Cannula 3.00 06/05/19 03:00 64 12 156/87 (110) 98 Nasal Cannula 3.00 06/05/19 02:00 60 13 135/79 (97) 91 Nasal Cannula 3.00 06/05/19 01:00 60 06/05/19 01:00 60 16 135/83 (100) 99 Nasal Cannula 3.00 06/05/19 00:00 64 16 149/89 (109) 96 Nasal Cannula 3.00 06/05/19 00:00 93 Nasal Cannula 3.00 06/04/19 23:54 Nasal Cannula 2.00 06/04/19 23:00 61 13 146/91 (109) 96 Nasal Cannula 3.00 06/04/19 22:00 67 20 159/91 (113) 94 Nasal Cannula 3.00 06/04/19 21:00 64 17 156/97 (116) 96 Nasal Cannula 3.00 06/04/19 20:00 67 14 137/75 (95) 96 Nasal Cannula 3.00 06/04/19 20:00 93 Nasal Cannula 3.00 06/04/19 19:52 37.0 06/04/19 19:29 36.3 68 18 158/94 (115) 95 Nasal Cannula 3.00 06/04/19 19:00 67 06/04/19 18:00 61 17 140/83 (102) 95 Nasal Cannula 3.00 06/04/19 17:00 65 13 143/88 (106) 93 Nasal Cannula 3.00 06/04/19 16:00 94 Nasal Cannula 3.00 06/04/19 16:00 71 15 145/82 (103) 92 Nasal Cannula 3.00 06/04/19 15:40 37.0 06/04/19 15:00 69 16 146/82 (103) 96 Nasal Cannula 3.00 I & O 06/05/19 07:00 Intake Total 2750 ml Output Total 1345 ml Balance 1405 ml Capillary Refill : Less Than 3 SecondsLess Than 3 Seconds General Appearance: Mild Distress, Other (uncomfortable) HEENT: Other (ET tube in place) Neck: Normal Inspection Respiratory: Lungs Clear, Normal Breath Sounds, No Respiratory Distress Cardiovascular: Regular Rate, Rhythm, No Murmur, Other (Generalized Edema) Gastrointestinal: tenderness (incisinoal, serous fluid from incision), other (Colostomy has some output. ) Extremity: Normal Inspection, Non Tender Neurologic/Psychiatric: Alert Skin: Normal Color, Warm/Dry Lymphatic: No Adenopathy Results Lab Laboratory Tests 06/04/19 17:41: Glucometer 168H 06/05/19 03:09: White Blood Count 16.1H, Red Blood Count 2.77L, Hemoglobin 8.4L, Hematocrit 27L, Mean Corpuscular Volume 98, Mean Corpuscular Hemoglobin 30, Mean Corpuscular Hemoglobin Concent 31L, Red Cell Distribution Width 15.3H, Platelet Count 111L, Mean Platelet Volume 12.0H, Neutrophils (%) (Auto) 80H, Lymphocytes (%) (Auto) 12, Monocytes (%) (Auto) 8, Eosinophils (%) (Auto) 1, Basophils (%) (Auto) 0, Neutrophils # (Auto) 12.8H, Lymphocytes # (Auto) 1.9, Monocytes # (Auto) 1.3H, Eosinophils # (Auto) 0.1, Basophils # (Auto) 0.0, Sodium Level 142, Potassium Level 3.8, Chloride Level 106, Carbon Dioxide Level 27, Anion Gap 9, Blood Urea Nitrogen 32H, Creatinine 1.53H, Estimat Glomerular Filtration Rate 33, BUN/Creatinine Ratio 21, Glucose Level 146H, Calcium Level 7.4L, Corrected Calcium 8.6, Phosphorus Level 2.8, Magnesium Level 1.9, Total Bilirubin 0.9, Asp artate Amino Transf (AST/SGOT) 23, Alanine Aminotransferase (ALT/SGPT) 23, Alkaline Phosphatase 245H, Total Protein 4.4L, Albumin 2.5L 06/05/19 03:15: Thyroid Stimulating Hormone (TSH) 5.63H 06/05/19 04:51: Triglycerides Level 166H 06/05/19 06:20: 06/05/19 11:12: Glucometer 142H Microbiology 06/02/19 Blood Culture - Preliminary, Resulted No growth 05/30/19 Gram Stain - Final, Complete 05/30/19 Sputum Culture - Final, Complete Usual upper respiratory pau 06/02/19 Urine Culture - Final, Complete NO GROWTH Assessment/Plan Assessment/Plan Assessment/Plan Acute Renal failure Heart Failure Colostomy Monitor I&Os pain Control Avoid Nephrotoxic Insults Clinical Quality Measures DVT/VTE Risk/Contraindication: Risk Factor Score Per Nursin RFS Level Per Nursing on Admit: 3=High NAJMA SANTOS DO 06/05/19 2912: Subjective Subjective/Events-last exam Feeling a little better. Having pain in the abdomen. Small amount of stool output. wanting food. Some serous fluid from incision and her whole body swollen she says. No other complaints at this time. Objective Exam General Appearance: No Apparent Distress; No Mild Distress; Other (uncomfortable) HEENT: PERRL/EOMI, Normal ENT Inspection Neck: Normal Inspection Respiratory: Chest Non Tender, No Accessory Muscle Use, No Respiratory Distress Cardiovascular: Regular Rate, Rhythm, Other Gastrointestinal: soft, tenderness (incisinoal, serous fluid from incision, colostomy with small amount of stool) Extremity: Pedal Edema, Swelling Neurologic/Psychiatric: Alert Skin: Normal Color, Warm/Dry Lymphatic: No Adenopathy Assessment/Plan Assessment/Plan Assessment/Plan s/p sigmoid resection end colostomy appendectomy- peroforated sigmoid diverticulum and inflamed appendix acute renal failure NSTEMI/cardiomyopathy ef 25%a LLL pneumonia pleural effusionns patient to have swollow done today if okay start clears and if tolerates can advance to dysphagia 2 diet still with pain and serous fluid and elevated wbc will get ct abd/pelvis to evaluate for any acute pathology consider LTAC to due to deconditioning and overall status, may be very beneficial for patient continue abx Supervisory-Addendum Brief Verification & Attestation Participated in pt care: history, MDM, physical Personally performed: exam, history, MDM, supervision of care Care discussed with: Medical Student Procedures: n/a Results interpretation: Verified all documentation Verification and Attestation of Medical Student E/M Service A medical student performed and documented this service in my presence. I reviewed and verified all information documented by the medical student and made modifications to such information, when appropriate. I personally performed the physical exam and medical decision making. Najma Santos, Jun 05, 2019,22:43 MORENITA HERNANDEZ STUDEN Jun 05, 2019 14:51 NAJMA SANTOS DO Jun 05, 2019 22:43
--- NOTE | 2019-06-05 14:53 | Physical Therapy Daily Note ---
PT Daily Note-Current Subjective Pt laying Supine in bed upon arrival. Pt's daughter is present. Pt is just finishing OT eval. upon arrival but agrees to PT. Pain Numeric Pain Scale: 10-Worst Possible Pain Location: Right Location Body Site: Arm Pain Description: Ache, Tightness Comment: Pt is having increased fluid rention. Mental Status Patient Orientation: Person, Place, Time, Situation Attachments: Oxygen Transfers SCALE: Activities may be completed with or without assistive devices. 4-Xhrjgottbm-smrdhjf completes the activity by him/herself with no assistance from a helper. 5-Set-up or Clean-up Assistance-helper sets up or cleans up; patient completes activity. Troy assists only prior to or following the activity. 4-Supervision or Touching Assistance-helper provides verbal cues and/or touching/steadying and/or contact guard assistance as patient completes activity. Assistance may be provided throughout the activity or intermittently. 3-Partial/Moderate Assistance-helper does LESS THAN HALF the effort. Troy lifts, holds or supports trunk or limbs, but provides less than half the effort. 2-Substantial/Maximal Assistance-helper does MORE THAN HALF the effort. Troy lifts or holds trunk or limbs and provides more than half the effort. 3-Fonjfmcfe-vzmkaw does ALL the effort. Patient does none of the effort to complete the activity. Or, the assistance of 2 or more helpers is required for the patient to complete the activity. If activity was not attempted, code reason: 7-Patient Refused. 9-Not Applicable-not attempted and the patient did not perform the activity before the current illness, exacerbation or injury. 10-Not Attempted due to Environmental Limitations-(lack of equipment, weather restraints, etc.). 88-Not Attempted due to Medical Conditions or Safety Concerns. Weight Bearing Right Lower Extremity: Right Full Weight Bearing Left Lower Extremity: Left Full Weight Bearing Treatments Pt reports uncomfortable with raising HOB. Pt reports increased discomfort with sitting up so completes Supine EX in bed. Several RB as needed. Pt resting at end of tx with all needs [employer] arriving, call light in hand. Assessment Current Status: Poor Progress Pt fatigues easily and demonstrates difficulty with movement. Pt may D/C to LTAC tomorrow (06/06), pending eval. PT Surg Physician Asst Goals Surg Physician Asst Goals PT Surg Physician Asst Goals Time Frame: Jun 22, 2019 Sit to Lying (QC): 4 Lying-Sitting on Side/Bed(QC): 4 Sit to Stand (QC): 4 Roll Left to Right (QC): 4 Chair/Pbi-hg-Gwmuo Xfer(QC): 4 Does the Patient Walk: Yes Distance: 150' Walk 10 feet (QC): 4 Walk 10ft-Uneven Surface(QC): 4 Walk 50ft with 2 Turns (QC): 4 Walk 150 ft (QC): 4 Gait Assistive Device: FWW # of Steps: 4 Stairs Level Of Assist: 5 PT Plan Problem List Problem List: Activity Tolerance, Functional Strength, Safety, Balance, Gait, Transfer Treatment/Plan Treatment Plan: Continue Plan of Care Treatment Plan: Bed Mobility, Education, Functional Activity Chuyita, Functional Strength, Gait, Safety, Therapeutic Exercise, Transfers Treatment Duration: Jun 22, 2019 Frequency: 6 times per week Estimated Hrs Per Day: .25 hour per day Patient and/or Family Agrees t: Yes Safety Risks/Education Patient Education: Correct Positioning, Safety Issues Teaching Recipient: Patient Teaching Methods: Discussion Response to Teaching: Verbalize Understanding Time/GCodes Time In: 1418 Time Out: 1426 Total Billed Treatment Time: 8 Total Billed Treatment 1, TISH (8m) CHANDANA VILLALTA ADULT PROTECTIVE CASEWORKER Jun 05, 2019 14:53
[2019-06-05] MEDS ORDERED: SODIUM ACETATE IV SCH ×11 (17:00)
[2019-06-05] MEDS ORDERED: [UNRECOGNIZED DRUG - OTHER] IV SCH ×11 (17:00)
[2019-06-05] MEDS ORDERED: SODIUM CHLORIDE IV SCH ×11 (17:00)
[2019-06-05] MEDS ORDERED: D5 LR IV SOLUTION 1,000 ML IV SCH (17:00)
[2019-06-06] VITALS (11 sets, daily range): BP systolic 133–174; BP diastolic 76–129
[2019-06-06] MEDS: fentaNYL INJECTION 100 MCG/2 ML AMP IV PRN (02:52)
[2019-06-06 03:17] LABS: BASOPHILS % (AUTO) 0 % (0-10); EOSINOPHILS # (AUTO) 0.2 10^3/uL (0.0-0.3); EOSINOPHILS % (AUTO) 1 % (0-10); HEMATOCRIT 29 % (35-52); HEMOGLOBIN 9.2 G/DL (11.5-16.0); LYMPHOCYTES # (AUTO) 2.4 X 10^3 (1.0-4.0); LYMPHOCYTES % (AUTO) 10 % (12-44); MEAN CORPUSCULAR HEMOGLOBIN 30 PG (25-34); MEAN CORPUSCULAR HGB CONC 31 G/DL (32-36); MEAN CORPUSCULAR VOLUME 95 FL (80-99); MEAN PLATELET VOLUME 12.3 FL (7.4-10.4); MONOCYTES # (AUTO) 2.1 X 10^3 (0.0-1.0); MONOCYTES % (AUTO) 9 % (0-12); NEUTROPHILS # (AUTO) 19.6 X 10^3 (1.8-7.8); NEUTROPHILS % (AUTO) 81 % (42-75); PLATELET COUNT 149 10^3/uL (130-400); RED CELL DISTRIBUTION WIDTH 15.3 % (10.0-14.5); WHITE BLOOD COUNT 24.2 10^3/uL (4.3-11.0)
[2019-06-06 03:42] LABS: ANISOCYTOSIS SLIGHT; BAND NEUTROPHILS 3 %; BASOPHILS % (MANUAL) 0 %; EOSINOPHILS % (MANUAL) 0 %; LYMPHOCYTES % (MANUAL) 7 %; MONOCYTES % (MANUAL) 6 %; NEUTROPHILS % (MANUAL) 84 %; NUCLEATED RED BLOOD CELLS 3; POIKILOCYTOSIS SLIGHT; POLYCHROMASIA SLIGHT; TOXIC GRANULATION/VACUOLAZATIO 1+
[2019-06-06 04:02] LABS: CALCIUM 7.6 MG/DL (8.5-10.1); CREATININE SERUM 1.51 MG/DL (0.60-1.30); MAGNESIUM 1.8 MG/DL (1.6-2.4); PHOSPHORUS 2.7 MG/DL (2.3-4.7); POTASSIUM 3.8 MMOL/L (3.6-5.0)
[2019-06-06] MEDS: HYDROmorphone 2 MG/ML VIAL (DILAUDID) IV PRN (04:07)
[2019-06-06] MEDS: ONDANSETRON 4 MG/2 ML (SDV) Z0FRAN IV PRN (04:07)
[2019-06-06] MEDS: MAGNESIUM 1 GM/100 ML IVPB 100 ML IV SCH (04:14)
[2019-06-06] MEDS: POTASSIUM CL 10MEQ/50ML IVPB 50 ML IV SCH ×3 (04:14→09:15)
[2019-06-06] MEDS: inSUlin ASPART (NovoLOG) 1 UNIT/0.01 ML (CHARGE PER UNIT) SC SCH (04:15)
[2019-06-06] MEDS: KCL 20 MEQ TAB (K-DUR) PO SCH (04:15)
[2019-06-06] MEDS: PIPERACILLIN/TAZOBACTAM (BULK) 4.5 GM in NS (IVPB) 100 ML IV SCH (05:14)
[2019-06-06] MEDS: meTOprolol 5 MG/5 ML (LOPRESSOR) VIAL IV SCH (05:14)
[2019-06-06] MEDS: HYDROcodone/APAP 5 MG/325 MG (LORTAB) TAB PO PRN ×2 (05:14→09:54)
--- NOTE | 2019-06-06 06:22 | Pulmonary Progress Note ---
Subjective Time Seen by a Provider: 06:22 Subjective/Events-last exam Pt is going to transfer to [facility] today. Sepsis Event Evaluation Height, Weight, BMI Height: 5'2.00" Weight: 200lbs. 0.0oz. 90.425212zc; 38.69 BMI Method: Exam Exam Vital Signs Date Time Temp Pulse Resp B/P (MAP) Pulse Ox O2 Delivery O2 Flow Rate FiO2 06/06/19 06:00 67 21 133/82 (99) 95 Nasal Cannula 2.00 06/06/19 05:00 77 21 174/93 (120) 95 Nasal Cannula 2.00 06/06/19 04:00 36.5 Nasal Cannula 2.00 06/06/19 04:00 81 27 169/129 (142) 95 Nasal Cannula 2.00 06/06/19 03:30 95 Nasal Cannula 2.00 06/06/19 03:00 82 26 155/78 (103) 93 Nasal Cannula 2.00 06/06/19 02:00 80 26 146/76 (99) 95 Nasal Cannula 2.00 06/06/19 01:00 64 06/06/19 01:00 64 18 171/95 (120) 94 Nasal Cannula 2.00 06/06/19 00:00 64 22 169/91 (117) 94 Nasal Cannula 2.00 06/05/19 23:25 94 Nasal Cannula 2.00 06/05/19 23:25 37.2 Nasal Cannula 2.00 06/05/19 23:22 68 21 96 Nasal Cannula 2.00 06/05/19 23:00 69 15 155/119 (131) 97 Nasal Cannula 2.00 06/05/19 22:05 70 32 96 Nasal Cannula 2.00 06/05/19 22:00 79 27 164/85 (111) 94 Nasal Cannula 2.00 06/05/19 21:00 70 25 146/81 (102) 97 Nasal Cannula 2.00 06/05/19 20:00 36.5 06/05/19 20:00 98 Nasal Cannula 2.00 06/05/19 20:00 68 23 147/80 (102) 98 Nasal Cannula 2.00 06/05/19 19:45 Nasal Cannula 2.00 06/05/19 19:00 61 06/05/19 19:00 61 21 136/79 (98) 99 Nasal Cannula 2.00 06/05/19 18:00 71 21 138/114 (122) 98 Vapotherm 35.00 40.00 06/05/19 17:00 72 16 137/95 (109) 98 Vapotherm 35.00 40.00 06/05/19 16:35 94 Nasal Cannula 3.00 06/05/19 16:00 67 40 144/81 (102) 95 Vapotherm 35.00 40.00 06/05/19 15:00 70 18 141/76 (97) 86 Vapotherm 35.00 40.00 06/05/19 14:00 71 18 143/74 (97) 99 Vapotherm 35.00 40.00 06/05/19 13:00 65 22 154/85 (108) 98 Vapotherm 35.00 40.00 06/05/19 12:59 66 06/05/19 12:35 94 Nasal Cannula 3.00 06/05/19 12:00 133 18 112/93 (99) 95 Vapotherm 35.00 40.00 06/05/19 12:00 36.0 06/05/19 11:00 133 39 139/112 (121) 90 Nasal Cannula 3.00 06/05/19 10:00 179 24 108/80 (89) 97 Nasal Cannula 3.00 06/05/19 09:00 186 21 95/79 (84) 96 Nasal Cannula 3.00 06/05/19 08:15 94 Nasal Cannula 3.00 06/05/19 08:00 121 17 108/75 (86) 99 Nasal Cannula 3.00 06/05/19 08:00 36.4 06/05/19 07:00 118 15 104/85 (91) 100 Nasal Cannula 3.00 06/05/19 06:53 69 I & O0 06/06/19 07:00 Intake Total 735 ml Output Total 1780 ml Balance -1045 ml Height & Weight Height: 5'2.00" Weight: 200lbs. 0.0oz. 90.536748yl; 38.69 BMI Method: General Appearance: No Apparent Distress; No Mild Distress; Other (unc omfortable) HEENT: PERRL/EOMI, Normal ENT Inspection Neck: Normal Inspection Respiratory: Chest Non Tender, No Accessory Muscle Use, No Respiratory Distress Cardiovascular: Regular Rate, Rhythm, Other Capillary Refill: Less Than 3 Seconds Gastrointestinal: soft, tenderness (incisinoal, serous fluid from incision, colostomy with small amount of stool) Extremity: Pedal Edema, Swelling Neurologic/Psychiatric: Alert Skin: Normal Color, Warm/Dry Lymphatic: No Adenopathy Results Lab Laboratory Tests 06/05/19 03:09 06/06/19 03:00 Assessment/Plan Assessment/Plan PNA LLL -Rocephin and Flagyl auto d/c'd and WBC is up to 20 -Continue Zosyn x 7days -Repan culture pending -Pt is on 2 liter NC New onset Afib RVR - now converted -Amio Cardiomyopathy EF 25% with hypotension -PT is doing well pulmonary hill. Acute renal failure - monitor closely -0.5mg of Bumex BID Hypoalbuminemia secondary to protein shelli malnutrition -Cotinue TPN -Prealbumin is 9.7 Acute sigmoid perforation s/p surgical repair - Eraxis NSTEMI -Cardiology following Hypothyroid - Synthroid IV while pt is NPO Anemia -Monitor Diverticulitis/colitis UTI with klebsiella Probable discharge to [facility]. TANJA MACHADO DO Jun 06, 2019 06:22
--- NOTE | 2019-06-06 07:11 | Cardiology Progress Note ---
Subjective Date Seen by Provider: Jun 06, 2019 Time Seen by Provider: 07:10 Subjective/Events-last exam Patient is laying down in bed, having shortness of breath and anasarca Review of Systems General: No Chills, No Night Sweats, No Fatigue, No Malaise, No Appetite, No Other HEENT: No Head Aches, No Visual Changes, No Eye Pain, No Ear Pain, No Dysphasia, No Sinus Congestion, No Post Nasal Drip, No Sore Throat, No Other Pulmonary: Dyspnea; No Cough, No Pleuritic Chest Pain, No Other Cardiovascular: Edema; No: Chest Pain, Palpitations, Orthopnea, Paroxysmal Noc. Dyspnea, Lt Headedness, Other Objective-Cardiology Exam Last Set of Vital Signs Vital Signs 06/02/19 06/06/19 01:07 06:00 Pulse 67 Resp 21 B/P (MAP) 133/82 (99) Pulse Ox 95 O2 Delivery Nasal Cannula O2 Flow Rate 2.00 FiO2 35 Capillary Refill : Less Than 3 SecondsLess Than 3 Seconds I&O Intake and Output 06/06/19 00:00 Intake Total 1540 ml Output Total 1460 ml Balance 80 ml Intake Oral 540 ml IV Total 1000 ml Output Urine Total 1320 ml Stool Total 140 ml General: Alert, Oriented X3, Cooperative, Mild Distress HEENT: Atraumatic, PERRLA Neck: Supple, No JVD Lungs: Normal Air Movement, Other (Bilateral rhonchi) Heart: Regular Rate, Normal S1, Normal S2 Abdomen: Other (Diminished bowel sounds) Extremities: No Clubbing, No Cyanosis, Other (Upper and lower extremities edema) Skin: No Rashes, No Breakdown Neuro: Normal Speech, Sensation Intact Results Lab Laboratory Tests 06/06/19 03:00 A/P-Cardiology Admission Diagnosis Septic shock Type II PR Diverticulitis Hypertension Assessment/Plan Type II myocardial infarction probably secondary to hypoxemia, hypotension and tachycardia, conservative management. Continue to monitor Pneumonia, receiving antibiotics, managed by primary care team Status post acute respiratory failure, extubated on June 01, 2019, breathing better at this time, improving. Managed by primary care team Transient atrial fibrillation occurred on May 30, 2019, converted to sinus rhythm on amiodarone drip. Still have NG tube. Anasarca, received large amount of fluid. Started on low-dose diuretics, continue to monitor Diverticulitis, small bowel obstruction, perforation and appendicitis, had surgical appendectomy with colon resection and decompression. Hypotensive shock combination between septic and cardiogenic shock, better at this time, borderline hypertensive. Continue to monitor Severe cardiomyopathy with severe left ventricular systolic dysfunction, probably ischemic in nature, cannot tolerate beta blockers, DAVID inhibitor and/or ARB to the hypotension, echo showed ejection fraction 25-30 percent, moderate tricuspid regurgitation, PA 45 mmHg, will need cardiac catheterization once clinically stable History of hypertension, continue to monitor blood pressure. History of hyperlipidemia, has been on simvastatin as an outpatient Hypothyroidism contained on levothyroxin Clinical Quality Measures DVT/VTE Risk/Contraindication: Risk Factor Score Per Nursin RFS Level Per Nursing on Admit: 3=High HAL DOUGLAS MD Jun 06, 2019 07:11
--- NOTE | 2019-06-06 08:20 | Diagnostic Imaging Report ---
INDICATION: Dyspnea. Comparison is made with prior examination from 06/05/2019. FINDINGS: There is cardiomegaly. Lungs clear. There is no pleural effusion or pneumothorax. Mediastinum is unremarkable. Right internal jugular central venous catheter has its tip in the superior vena cava. IMPRESSION: No acute cardiopulmonary abnormality. Cardiomegaly Dictated by: Dictated on workstation # [id number]
[2019-06-06] MEDS: PANTOPRAZOLE 40 MG (PROTONIX) VIAL IV SCH (08:39)
[2019-06-06] MEDS: BUMETANIDE 1 MG/4 ML (BUMEX) VIAL IV SCH (08:40)
[2019-06-06] MEDS: LEVOTHYROXINE 100 MCG INJ (SYNTHROID) VIAL IV SCH (08:42)
[2019-06-06] MEDS ORDERED: BUMETANIDE 2.5 MG/10 ML (BUMEX) VIAL IV SCH (09:00)
--- NOTE | 2019-06-06 09:30 | Discharge Summary ---
Discharge Summary Hospital Course Was the Problem List Reviewed?: Yes Problems/Dx: (1) Diverticulitis of intestine with perforation Status: Acute (2) Shock Status: Resolved (3) NSTEMI (non-ST elevation myocardial infarction) Status: Acute (4) HFrEF (heart failure with reduced ejection fraction) Status: Acute Qualifiers: Qualified Codes: I50.23 - Acute on chronic systolic (congestive) heart failure (5) Atrial fibrillation with RVR Status: Acute (6) Acute respiratory failure with hypoxia Status: Acute Assessment & Plan: on 2L nasal canula (7) UTI due to Klebsiella species Status: Resolved (8) Acute on chronic kidney failure Status: Acute Qualifiers: Qualified Codes: N17.0 - Acute kidney failure with tubular necrosis; N18.3 - Chronic kidney disease, stage 3 (moderate) (9) Hypokalemia Status: Acute (10) Hypernatremia Status: Acute (11) Lactic acidosis Status: Acute (12) ATN (acute tubular necrosis) Status: Acute (13) Hypothyroid Status: Chronic Hospital Course Date of Admission: May 27, 2019 at 15:22 Admission Diagnosis : Family Physician/Provider: Cody Herman MD Date of Discharge: 06/06/19 Discharge Diagnosis: [ ] Hospital Course: HPI : Patient is an 78-year-old female admitted for intractable abdominal pain. A CT was performed in the ER which showed diverticulitis and colitis. She was started on IV fluids and metronidazole. Rocephin was also started as a urinalysis also demonstrated a urinary tract infection. She was given fentanyl IV which also helped with the abdominal pain. Patient recently had a right hip replacement which she has been struggling with the pain with this as well. She has been taking hydrocodone for this pain. It has been prescribed by myself which likely contributed to her ileus. Last time she ate food was 05/22/19- last bowel movement 05/27/19- prior to this she had not had a bowel movement for 5 days. She become nauseous and vomiting bilious fluid after being admitted to [address] Santos was consulted and will follow along with the case. She'll be nothing by mouth and repeating labs in the morning. 05/27/19 IVF, NPO- monitor respiratory status with the IVF. Rechecking labs in the AM continue metronidazole and rocephin- checking blood cultures and urine cultures. 05/28/19- SVT overnight- resolved. WBC still elevated. No fevers since yesterday. Cr still 1.4. Abdominal pain improved compared to admission. 05/29/19- Cr improved to 1.27, WBC back down to 23K- will continue to trend. Temp yesterday evening was 37.9C- Still on metronidazole and ceftriaxone. Urine culture growing gram negative- awaiting antibiotic coverage. Blood cultures negative to date. -will try 5mg ambien to help her sleep tonight. -will add on metoclopramide daily to see if it will help with nausea and stimulate her GI tract to get back to functioning. 05/30/19- ST with PVC. Dr. Hills consulted- troponin initially elevated; normal on repeat- ex lap converted to open- appendix removed and colostomy placed for bowel resection due to diverticulitis perforation and small bowel obstruction. 05/31/19- Dr Moran consulted for ICU/vent management- not improved enough to w giuseppe/extubate- Pulm to re-evaluate in AM. 06/01-02/13- extubated, antibiotic coverage changed to zosyn. Doing well on nasal canula oxygen. transfused 1 unit pRBC 06/03/19- improvement over the weekend. Continue zosyn. Continue ivf. Monitoring labs. Recheck labs in AM. Continue respiratory support as needed- levothyroxine being replaced IV. 06/04/19- pt is reporting she is hungry- kidney function improving with improved UOP. WBC continue to trend down. 06/05/19- working on LTAC placement- pt passed speech/swallow test- she will be on regular diet. 06/06/19- WBC up today to 26K- manual diff 86%neutrophils- afebrile. She reports she feeling her best and has continued to improve. She will discharged to [facility] today. Repeat CBC, BMP in AM. Labs and Pending Lab Test: Laboratory Tests 06/05/19 11:12: Glucometer 142H 06/05/19 17:27: Glucometer 171H 06/05/19 21:10: Glucometer 171H 06/06/19 03:00: White Blood Count 24.2H, Red Blood Count 3.07L, Hemoglobin 9.2L, Hematocrit 29L, Mean Corpuscular Volume 95, Mean Corpuscular Hemoglobin 30, Mean Corpuscular Hemoglobin Concent 31L, Red Cell Distribution Width 15.3H, Platelet Count 149, Mean Platelet Volume 12.3H, Neutrophils (%) (Auto) 81H, Lymphocytes (%) (Auto) 10L, Monocytes (%) (Auto) 9, Eosinophils (%) (Auto) 1, Basophils (%) (Auto) 0, Neutrophils # (Auto) 19.6H, Lymphocytes # (Auto) 2.4, Monocytes # (Auto) 2.1H, Eosinophils # (Auto) 0.2, Basophils # (Auto) 0.0, Neutrophils % (Manual) 84, Lymphocytes % (Manual) 7, Monocytes % (Manual) 6, Eosinophils % (Manual) 0, Basophils % (Manual) 0, Band Neutrophils 3, Nucleated Red Blood Cells 3, Toxic Granulation 1+, Polychromasia SLIGHT, Poikilocytosis SLIGHT, Anisocytosis SLIGHT, Macrocytosis SLIGHT, Sodium Level 142, Potassium Level 3.8, Chloride Level 105, Carbon Dioxide Level 26, Anion Gap 11, Blood Urea Nitrogen 32H, Creatinine 1.51H, Estimat Glomerular Filtration Rate 33, BUN/Creatinine Ratio 21, Glucose Level 148H, Calcium Level 7.6L, Phosphorus Level 2.7, Magnesium Level 1.8 Microbiology 06/02/19 Blood Culture - Preliminary, Resulted No growth 05/30/19 Gram Stain - Final, Complete 05/30/19 Sputum Culture - Final, Complete Usual upper respiratory pau 06/02/19 Urine Culture - Final, Complete NO GROWTH Home Meds Active Reported Colace (Docusate Sodium) 100 Mg Capsule 100 Mg PO DAILY PRN Aspirin EC (Aspirin) 81 Mg Tablet.dr 81 Mg PO BID Simvastatin 40 Mg Tablet 40 Mg PO HS Klor-Con M20 (Potassium Chloride) 20 Meq Tab.er.prt 20 Meq PO DAILY Furosemide 40 Mg Tablet 40 Mg PO DAILY Synthroid (Levothyroxine Sodium) 50 Mcg Tablet 50 Mcg PO DAILY Lisinopril 10 Mg Tablet 10 Mg PO DAILY Ondansetron HCl 4 Mg Tablet 4 Mg PO TID PRN Amitriptyline HCl 10 Mg Tablet 10 Mg PO HS Gabapentin 100 Mg Capsule 100 Mg PO TID Hydrocodone-Acetamin 5-325 mg (Hydrocodone/Acetaminophen) 1 Each Tablet 1 Tab PO Q4H PRN Oxycodone HCl 10 Mg Tablet 10 Mg PO Q12H PRN Assessment/Pt Instructions Transferring to [facility] She will need: Physical Therapy Occupational Therapy wound care for recent abdominal surgery- monitor serosanguineous drainage. monitoring respiratory status- requiring but doing well on 2L oxgyen nasal cannula. - pleural effusions nutritional monitoring- currently has TPN but diet is being advanced so she should be able to get off the TPN in near future. -check CBC and BMP 06/07/19 -she will complete one more day of zosyn (stop date 06/07/19) Discharge Planning: >30 minutes discharge planning Discharge Instructions Discharge Diet: Cardiac Diet Activity as Tolerated: Yes Orders & Referrals Physical Therapy Occupational Therapy wound care for recent abdominal surgery- monitor serosanguineous drainage. monitoring respiratory status- requiring but doing well on 2L oxgyen nasal cannula. - pleural effusions nutritional monitoring Discharge Physical Examination Vital Signs Vital Signs Date Time Temp Pulse Resp B/P (MAP) Pulse Ox O2 Delivery O2 Flow Rate FiO2 06/06/19 08:00 69 20 159/104 (122) 96 Nasal Cannula 2.00 06/06/19 04:00 36.5 06/02/19 01:07 35 General Appearance: No Apparent Distress HEENT: PERRL/EOMI Respiratory: Chest Non Tender, Lungs Clear, Normal Breath Sounds, Decreased Breath Sounds (bases) Cardiovascular: Regular Rate, Rhythm Gastrointestinal: Normal Bowel Sounds, Soft, Tenderness, Other (colostomy) Skin: Other (edema) Neurologic/Psychiatric: Alert, Oriented x3, Normal Mood/Affect Allergies: Coded Allergies: Sulfa (Sulfonamide Antibiotics) (Unverified Allergy, Unknown, 05/31/19) Discharge Summary Date of Admission May 27, 2019 at 15:22 Date of Discharge June 06, 2019 Consults/Procedures Consulations Dr. Moran Puldidi Santos Surgery Dr. Hills Card Discharge Diagnosis see below (1) Diverticulitis of intestine with perforation Status: Acute (2) Shock Status: Resolved (3) NSTEMI (non-ST elevation myocardial infarction) Status: Acute (4) HFrEF (heart failure with reduced ejection fraction) Status: Acute Qualifiers: Qualified Codes: I50.23 - Acute on chronic systolic (congestive) heart failure (5) Atrial fibrillation with RVR Status: Acute (6) Acute respiratory failure with hypoxia Status: Acute (7) UTI due to Klebsiella species Status: Resolved (8) Acute on chronic kidney failure Status: Acute Qualifiers: Qualified Codes: N17.0 - Acute kidney failure with tubular necrosis; N18.3 - Chronic kidney disease, stage 3 (moderate) (9) Hypokalemia Status: Acute (10) Hypernatremia Status: Acute (11) Lactic acidosis Status: Acute (12) ATN (acute tubular necrosis) Status: Acute (13) Hypothyroid Status: Chronic Clinical Quality Measures DVT/VTE Risk/Contraindication: Risk Factor Score Per Nursin RFS Level Per Nursing on Admit: 3=High CODY HERMAN MD Jun 06, 2019 09:13
[2019-06-06] MEDS ORDERED: HYDR20VI7 IV (09:45)
[2019-06-06] MEDS ORDERED: ACHD5005 PO (09:45)
[2019-06-06] MEDS ORDERED: tpn IV (09:45)
[2019-06-06] MEDS ORDERED: BMT.25V4 IV (09:45)
[2019-06-06] MEDS ORDERED: PIPE4.5V IV (09:45)
[2019-06-06] MEDS ORDERED: FNT.05A2 IV (09:45)
[2019-06-06] MEDS ORDERED: INSU100V16 SC (09:45)
[2019-06-06] MEDS ORDERED: HYDR2AMP3 IV (09:45)
--- NOTE | 2019-06-06 10:35 | NUR ---
CM DISCHARGE PLANNING: Patient is discharging to [facility] today. Partnered with [facility] Pharmacist, Dangelo RN, et [facility] staff to obtain needed finalized discharge orders. These were faxed to [facility]. Ambulance transport form filled out and given to the transport team. Loretta is alert et orientated et is aware that she is discharging this morning. Message left for her daughter Josefina Pickett to notify her of transport time. Son was at bedside but has left. All voice readiness to get to LTAC. No further needs noted at this time.
--- NOTE | 2019-06-07 04:54 | Progress Note - Surgery ---
Subjective Date Seen by a Provider: Jun 06, 2019 Time Seen by a Provider: 07:15 Subjective/Events-last exam Patient states that she is feeling much better. She has no pain. But does complain of swelling, fatigue, and weakness. Does not have shortness of breath, chest pain, n/v. She does understand that she will be transferred to [facility] in [place]. Colostomy is functioning. WBC at 24.2, Urine output at 0.43 ml/kg/hr. Creatinine at 1.51 Review of Systems General: No Chills; Fatigue; No Other (fever) Pulmonary: No Dyspnea, No Cough Cardiovascular: Edema; No: Chest Pain Gastrointestinal: No: Nausea, Vomiting, Abdominal Pain Objective Exam Vital Signs Date Time Temp Pulse Resp B/P (MAP) Pulse Ox O2 Delivery O2 Flow Rate FiO2 06/06/19 10:46 36.6 73 18 169/86 96 Nasal Cannula 2.00 06/06/19 09:00 73 18 169/86 (113) 96 Nasal Cannula 2.00 06/06/19 08:15 95 Nasal Cannula 2.00 06/06/19 08:00 69 20 159/104 (122) 96 Nasal Cannula 2.00 06/06/19 08:00 36.6 06/06/19 07:00 73 06/06/19 07:00 71 30 145/88 (107) 96 Nasal Cannula 2.00 06/06/19 06:00 67 21 133/82 (99) 95 Nasal Cannula 2.00 06/06/19 05:00 77 21 174/93 (120) 95 Nasal Cannula 2.00 I & O 06/07/19 07:00 Intake Total 120 ml Output Total 390 ml Balance -270 ml Capillary Refill : Less Than 3 SecondsLess Than 3 Seconds General Appearance: No Apparent Distress HEENT: PERRL/EOMI Neck: Normal Inspection Respiratory: Chest Non Tender, Lungs Clear, Normal Breath Sounds Cardiovascular: Regular Rate, Rhythm, No Murmur Gastrointestinal: soft, tenderness (incisinoal, serous fluid from incision, colostomy with small amount of stool) Extremity: Normal Inspection, Non Tender, Swelling (OF all extremities) Neurologic/Psychiatric: Alert, Oriented x3, Normal Mood/Affect Lymphatic: No Adenopathy Results Lab Microbiology 06/02/19 Blood Culture - Preliminary, Resulted No growth 05/30/19 Gram Stain - Final, Complete 05/30/19 Sputum Culture - Final, Complete Usual upper respiratory pau 06/02/19 Urine Culture - Final, Complete NO GROWTH Assessment/Plan Assessment/Plan Assessment/Plan Will be transferred to [facility] in [place] s/p sigmoid resection end colostomy appendectomy- peroforated sigmoid diverticulum and inflamed appendix acute renal failure NSTEMI/cardiomyopathy ef 25%a LLL pneumonia pleural effusionns patient to have swollow done today if okay start clears and if tolerates can advance to dysphagia 2 diet still with pain and serous fluid and elevated wbc will get ct abd/pelvis to evaluate for any acute pathology consider LTAC to due to deconditioning and overall status, may be very beneficial for patient continue abx Clinical Quality Measures DVT/VTE Risk/Contraindication: Risk Factor Score Per Nursin RFS Level Per Nursing on Admit: 3=High MORENITA HERNANDEZ MED STUDEN Jun 07, 2019 04:54
== END 2019-06-06 10:37 | DRG 329 ==
LOC: EDUNIT# 11:13 → ER 11:14 → 4TH 14:10 → UNDOADMIN 14:10 → 4TH 15:22 → ICU 05-30 18:24 → UNDODISIN 06-06 10:37
PROVIDERS: ADMIT Family Medicine; ATTEND Family Medicine
PROC: 0DBN0ZZ Excision of Sigmoid Colon, Open Approach (ICD-10-PCS; 2019-05-30)
PROC: 0D1N0Z4 Bypass Sigmoid Colon to Cutaneous, Open Approach (ICD-10-PCS; 2019-05-30)
PROC: 0DTJ0ZZ Resection of Appendix, Open Approach (ICD-10-PCS; 2019-05-30)
PROC: 5A1945Z Respiratory Ventilation, 24-96 Consecutive Hours (ICD-10-PCS; 2019-05-30)
PROC: 0DN80ZZ Release Small Intestine, Open Approach (ICD-10-PCS; principal; 2019-05-30 16:17)
DX: K57.20 Diverticulitis of large intestine with perforation and abscess without bleeding (principal); K56.50 Intestinal adhesions [bands], unspecified as to partial versus complete obstruction; K37 Unspecified appendicitis; A41.9 Sepsis, unspecified organism; R65.21 Severe sepsis with septic shock; R57.0 Cardiogenic shock; I21.A1 Myocardial infarction type 2; J96.01 Acute respiratory failure with hypoxia; Z66 Do not resuscitate; J18.1 Lobar pneumonia, unspecified organism; K56.7 Ileus, unspecified; T40.2X5A Adverse effect of other opioids, initial encounter; N30.01 Acute cystitis with hematuria; N17.0 Acute kidney failure with tubular necrosis; I50.23 Acute on chronic systolic (congestive) heart failure; E87.2 Acidosis; I13.0 Hypertensive heart and chronic kidney disease with heart failure and stage 1 through stage 4 chronic kidney disease, or unspecified chronic kidney disease; E46 Unspecified protein-calorie malnutrition; I25.5 Ischemic cardiomyopathy; N18.3 Chronic kidney disease, stage 3 (moderate); K52.9 Noninfective gastroenteritis and colitis, unspecified; K59.09 Other constipation; K42.9 Umbilical hernia without obstruction or gangrene; E03.9 Hypothyroidism, unspecified; M79.604 Pain in right leg; I48.91 Unspecified atrial fibrillation; E86.0 Dehydration; D64.9 Anemia, unspecified; B96.1 Klebsiella pneumoniae [K. pneumoniae] as the cause of diseases classified elsewhere; Z23 Encounter for immunization
CPT/HCPCS: 36415; 51702; 71045; 74176; 76770; 80048; 80053; 80069; 81000; 82040; 82150; 82805; 82962; 83605; 83690; 83735; 83880; 84100; 84132; 84134; 84443; 84478; 84484; 85007; 85018; 85025; 85027; 85610; 85652; 85730; 86141; 86850; 86900; 86901; 86920; 87040; 87070; 87077; 87081; 87088; 87186; 87205; 93005; 93306; 94002; 94003; 94799; 96361; 96365; 96367; 96375

== ENCOUNTER 2019-06-27 09:15 | Inpatient (IN) | payer MEDICARE, OTHER ==
[~2019-06-27] VITALS: Ht 157.5 cm; Wt 96.4 kg
[~2019-06-27 09:15] MED LIST: ACHD5005 PO; AMIT10TA6 PO; ASPI-983 PO; BMT.25V4 IV; DOCU-143 PO; FNT.05A2 IV; FURO40TA4 PO; GABA-486 PO; HYDR-3812 PO; HYDR20VI7 IV; HYDR2AMP3 IV; INSU100V16 SC; LEVO50TA PO; LISI10TA2 PO; ONDA4TAB10 PO; OXYC10TA7 PO; PIPE4.5V IV; POTA20TA8 PO; PRD20T; SIMV40TA4 PO; tpn IV
--- NOTE | 2019-06-27 12:45 | NUR ---
Pt admitted to room 231, with an admitting diagnosis of Disuse Myopathy from [facility], via w/c, accompanied by transportation department supervisor. ODALIS WATTS introduced to surroundings, call light, bed controls, phone, TV, temperature control, lights, meal times, smoking policy, visitor policy, side rail policy, bathrooms and showers. Patient Rights given to patient in the handbook. ODALIS WATTS verbalizes understanding that [facility] is not responsible for the loss or damage to any personal effects or valuables that are kept in the patients posession during their hospitalization. The following Patient Care Plans were discussed with the pt Impaired Mobility, Self Care Deficit, Potential for fall/injury, Discharge Planning. ODALIS WATTS verbalizes understanding of Interdisciplinary Patient Education. Patient and/or family were informed about the Rapid Response Team and its purpose. Patient received Patient Rights Booklet, which includes Privacy Act Statement and Data Collection Information Summary.
[2019-06-27 13:10] VITALS: BP 148/80
--- NOTE | 2019-06-27 13:31 | Consultation - Surgery ---
ALEX RUSH,MED STUDENT 06/27/19 1331: History of Present Illness History of Present Illness Patient Consulted On(fuad/time) 06/27/19 13:22 Date Seen by Provider: Jun 27, 2019 Time Seen by Provider: 13:00 History of Present Illness This patient is a 78yo female in inpatient rehabilitation after exploratory laparotomy on 05/30/19. During the procedure a bowel perforation of diverticula and appendicitis were discovered. After stabilizing the patient, she was transferred to [facility] in [place], [place] due to insurance. She is now back in [facility] and reports an abscess at inferior margin of suture line. Colostomy bag is functioning properly and it contains fecal contents at the time of this visit. Allergies and Home Medications Allergies Coded Allergies: Sulfa (Sulfonamide Antibiotics) (Unverified Allergy, Unknown, 05/31/19) Home Medications Amitriptyline HCl 10 Mg Tablet, 10 MG PO HS, (Reported) Aspirin 81 Mg Tablet.dr, 81 MG PO BID, (Reported) Docusate Sodium 100 Mg Capsule, 100 MG PO DAILY PRN for CONSTIPATION-1ST LINE, (Reported) Furosemide 40 Mg Tablet, 40 MG PO DAILY, (Reported) Gabapentin 100 Mg Capsule, 100 MG PO TID, (Reported) Hydrocodone/Acetaminophen 1 Each Tablet, 1 TAB PO Q4H PRN for PAIN-MODERATE, (Reported) Levothyroxine Sodium 50 Mcg Tablet, 50 MCG PO DAILY, (Reported) Lisinopril 10 Mg Tablet, 10 MG PO DAILY, (Reported) Ondansetron HCl 4 Mg Tab, 4 MG PO TID PRN for NAUSEA/VOMITING-1ST LINE, (Reported) Oxycodone HCl 10 Mg Tablet, 10 MG PO Q12H PRN for PAIN-SEVERE, (Reported) Potassium Chloride 20 Meq Tab.er.prt, 20 MEQ PO DAILY, (Reported) Simvastatin 40 Mg Tablet, 40 MG PO HS, (Reported) Past Hfnrcgm-Oubrwe-Avoudz Hx Patient Social History Alcohol Use: Denies Use 2nd Hand Smoke Exposure: No Recent Hopitalizations: Yes (hip sx 04/15) Immunizations Up To Date Date of Pneumonia Vaccine: Aug 28, 2013 Surgeries History of Surgeries: Yes Surgeries: Appendectomy, Hysterectomy, Orthopedic Respiratory History of Respiratory Disorde: No Cardiovascular History of Cardiac Disorders: Yes Cardiac Disorders: Hypertension Neurological History of Neurological Disord: No Genitourinary History of Genitourinary Disor: No Gastrointestinal History of Gastrointestinal Di: No Musculoskeletal History of Musculoskeletal Dis: No Endocrine History of Endocrine Disorders: No Cancer History of Cancer: No Psychosocial History of Psychiatric Problem: No Integumentary History of Skin or Integumenta: No Blood Transfusions History of Blood Disorders: No Family Medical History Significant Family History: No Pertinent Family Hx, Cancer (Breast), Diabetes, Hypertension Review of Systems-General Constitutional: No chills, No dizziness, No fever EENTM: No hearing loss, No vision loss Respiratory: No short of breath, No wheezing Cardiovascular: No chest pain; edema; No palpitations, No syncope Gastrointestinal: No abdominal pain Genitourinary: No decreased output, No hesitancy Physical Exam-General Problems Physical Exam Vital Signs Capillary Refill : General Appearance: WD/WN, no apparent distress HEENT: No scleral icterus (R), No scleral icterus (L) Respiratory: no respiratory distress, no accessory muscle use Cardiovascular: regular rate, rhythm Peripheral Pulses: 2+ Dorsalis Pedis (R), 2+ Left Dors-Pedis (L), 2+ Radial Pulses (R), 2+ Radial Pulses (L) Gastrointestinal: non tender, soft; No distended, No guarding, No tenderness Extremities: pedal edema Neurologic/Psychiatric: alert, normal mood/affect, oriented x 3 Skin: warm/dry Assessment/Plan Assessment/Plan Assessment/Plan Colostomy bag Abscess in suture line Monitor ostomy bag for normal output. Abscess appears to be draining on its own, continue to monitor and change dressing. No surgical intervention is indicated at this time. NAJMA MALCOLM DO 07/01/19 2017: History of Present Illness History of Present Illness History of Present Illness Patient returns from [facility] for rehab. Patient has midline opening lower part of incision. She states she is doing well. Pain controlled. Colostomy functioning. Continues to improve she states. Denies n/v fever sweats chills shortness of breath or chest pain. Allergies and Home Medications Allergies Coded Allergies: Sulfa (Sulfonamide Antibiotics) (Unverified Allergy, Unknown, 05/31/19) Home Medications Amitriptyline HCl 10 Mg Tablet, 10 MG PO HS, (Reported) Aspirin 81 Mg Tablet.dr, 81 MG PO BID, (Reported) Docusate Sodium 100 Mg Capsule, 100 MG PO DAILY PRN for CONSTIPATION-1ST LINE, (Reported) Furosemide 40 Mg Tablet, 40 MG PO DAILY, (Reported) Gabapentin 100 Mg Capsule, 100 MG PO TID, (Reported) Hydrocodone/Acetaminophen 1 Each Tablet, 1 TAB PO Q4H PRN for PAIN-MODERATE, (Reported) Levothyroxine Sodium 50 Mcg Tablet, 50 MCG PO DAILY, (Reported) Lisinopril 10 Mg Tablet, 10 MG PO DAILY, (Reported) Ondansetron HCl 4 Mg Tab, 4 MG PO TID PRN for NAUSEA/VOMITING-1ST LINE, (Reported) Oxycodone HCl 10 Mg Tablet, 10 MG PO Q12H PRN for PAIN-SEVERE, (Reported) Potassium Chloride 20 Meq Tab.er.prt, 20 MEQ PO DAILY, (Reported) Simvastatin 40 Mg Tablet, 40 MG PO HS, (Reported) Patient Home Medication List Home Medication List Reviewed: Yes Past Lfkygmn-Rjmihf-Pdqakl Hx Patient Social History Alcohol Use: Denies Use Surgeries Surgeries: Appendectomy, Bowel Surgery, Hysterectomy, Orthopedic Cardiovascular Cardiac Disorders: Hypertension Family Medical History Significant Family History: Cancer (Breast), Diabetes, Hypertension Review of Systems-General Constitutional: no symptoms reported EENTM: no symptoms reported Respiratory: no symptoms reported Cardiovascular: edema Gastrointestinal: see HPI Musculoskeletal: no symptoms reported Skin: no symptoms reported Psychiatric/Neurological: No Symptoms Reported Physical Exam-General Problems Physical Exam General Appearance: WD/WN, no apparent distress HEENT: PERRL/EOMI Neck: non-tender, supple Respiratory: chest non-tender, no respiratory distress, no accessory muscle use Cardiovascular: regular rate, rhythm Gastrointestinal: non tender, soft, other (small opening lower midline incsision, colostomy functioning) Back: no CVA tenderness Extremities: non-tender, pedal edema Neurologic/Psychiatric: alert, normal mood/affect, oriented x 3 Skin: warm/dry Lymphatic: no adenopathy Assessment/Plan Assessment/Plan Assessment/Plan s/p appendectomy solano procedure continue rehab wound care to midline irrigate and pack daily and prn medical/rehab management will follow prn Supervisory-Addendum Brief Verification & Attestation Participated in pt care: history, MDM, physical Personally performed: exam, history, MDM, supervision of care Care discussed with: Medical Student Procedures: n/a Results interpretation: Verified all documentation Verification and Attestation of Medical Student E/M Service A medical student performed and documented this service in my presence. I reviewed and verified all information documented by the medical student and made modifications to such information, when appropriate. I personally performed the physical exam and medical decision making. Najma Malcolm, Jun 27, 2019,20:18 ALEX RUSH,MED STUDENT Jun 27, 2019 13:31 NAJMA CHAPARRO DO Jul 01, 2019 20:17 POS
[2019-06-27] MEDS: HYDROcodone/APAP 5 MG/325 MG (LORTAB) TAB PO PRN ×2 (14:00→22:35)
[2019-06-27] MEDS ORDERED: ACET325T38 PO (14:03)
[2019-06-27] MEDS ORDERED: MELA3TAB PO (14:03)
[2019-06-27] MEDS ORDERED: ENOX40DI13 SQ (14:03)
[2019-06-27] MEDS ORDERED: GABA-488 PO (14:03)
[2019-06-27] MEDS ORDERED: PANT40TA2 PO (14:03)
--- NOTE | 2019-06-27 14:04 | NUR ---
UPDATED MED REC WITH MEDICATION LIST FROM [facility]. I WILL UPDATE THE MED REC BACK TO THE LIST THE PATIENT REPORTED UPON ADMISSION HERE EARLIER THIS MONTH AT A LATER DATE FOR PROPER DISCHARGE TO HOME ORDERS. Addendum: 06/27/19 at 1628 by BIBI STEELE [facility] UPDATED MED REC AT THIS TIME TO THE LIST OF MEDICATIONS REPORTED UPON ADMISSION ON 05-27-19 PRIOR TO PATIENT BEING TRANSFERRED TO [facility].
--- NOTE | 2019-06-27 14:35 | Occupational Therapy Eval ---
OT Evaluation-General/PLF Medical Diagnosis Admission Date Jun 27, 2019 at 12:45 Medical Diagnosis: diverticulitis secondary to appendicitis; deconditioning Onset Date: Jun 27, 2019 Therapy Diagnosis Therapy Diagnosis: decreased functional mobility and ADL function Height/Weight Height (Feet): 5 Height (Inches): 2.00 Weight (Pounds): 200 Weight (Ounces): 0.0 Precautions Precautions/Isolations: Standard Precautions Safety Interventions: None Weight Bear Status Weight Bearing Restriction: Weight Bearing/Tolerated Referral Physician: Sally Bello DO Referral Reason: Activity Tolerance, Self Care, Evaluation/Treatment, Strengthening/ROM Medical History Pertinent Medical History: Diverticulitis, HTN Additional Medical History R hip replacement, L TKA, obesity, HTN, diverticulitis, appendicitis Current History Diverticulitis; small bowel obstruction secondary to appendicitis; anasarca Reviewed History: Yes Social History Home: Single Level Current Living Status: mother in law house next to daughter's home Entry Into Home: Level Entry Steps Into Home: 0 Steps Inside Home: 3 (3 steps down into kitchen ) ADL-Prior Level of Function SCALE: Activities may be completed with or without assistive devices. 7-Lrhsjrvibs-hnqpjbq completes the activity by him/herself with no assistance from a helper. 5-Set-up or Clean-up Assistance-helper sets up or cleans up; patient completes activity. [place] assists only prior to or following the activity. 4-Supervision or Touching Assistance-helper provides verbal cues and/or touching/steadying and/or contact guard assistance as patient completes activity. Assistance may be provided throughout the activity or intermittently. 3-Partial/Moderate Assistance-helper does LESS THAN HALF the effort. [place] lifts, holds or supports trunk or limbs, but provides less than half the effort. 2-Substantial/Maximal Assistance-helper does MORE THAN HALF the effort. [place] lifts or holds trunk or limbs and provides more than half the effort. 5-Wxadfnhtb-kxeikg does ALL the effort. Patient does none of the effort to complete the activity. Or, the assistance of 2 or more helpers is required for the patient to complete the activity. If activity was not attempted, code reason: 7-Patient Refused. 9-Not Applicable-not attempted and the patient did not perform the activity before the current illness, exacerbation or injury. 10-Not Attempted due to Environmental Limitations-(lack of equipment, weather restraints, etc.). 88-Not Attempted due to Medical Conditions or Safety Concerns. ADL PLOF Comments Pt states IND with use of FWW with I/ADLs. 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 Pt states 5/10 pain "everywhere" due to movement, pt seen rubbing bilateral knees. Pt agreeable to OT/ PT cotreatment, pt states she is very weak. Mental Status/Objective Patient Orientation: Person, Place, Situation, Normal For Age Attachments: Colostomy/Ileostomy Current Glasses/Contacts: Yes Hearing Aids: No Dentures/Partials: No Hand Dominance: Right Upper Extremity ROM PROM WFL AROM ~90* Upper Extremity Coordination WFL BUE Upper Extremity Sensation No c/o paresthesia Upper Extremity Strength Impaired 3+/5 BUE Edema: bilateral LE ADL-Treatment Eating (QC): 6 (Pt drinks from cup/ straw) Oral Hygiene (QC): 5 (s/u for oral hygiene in chair) Shower/Bathe Self (QC): 2 (Pt completes sponge bath EOB, pt demonstrates fair dynamic sitting balance. Pt requires assist with below knee, chelsie/ bottom, and back. Pt requires cues for thoroughness under arms; pt states weakness in arms, able to reach underneath ) Upper Body Dressing (QC): 3 (Min A EOB) Lower Body Dressing (QC): 1 (TD with LB dressing, pt sit to stand with max-mod A (bed raised for ease), breif placed under pt's bottom. Nursing present during bottom hygiene for skin check- pt has wounds on R bottom and one ~1 in. in between legs on L medial thigh) On/Off Footwear (QC): 1 (TD, unable to reach top of socks) Toileting Hygiene (QC): 1 (Unable to reach bottom during stance.) Toilet Transfer (QC): 2 (Max-mod A with multiple trials ) Other Treatments OT evaluation from [id number] (10 min): Pt requires max Ax2 to sit to stand from w/c. Requires max cueing for safety and transfer technique. Pt able to side step with cues to transfer w/c to EOB, bed mob with max A. OT/ PT cotreat from 4910-1837 (80 min) due to pt's debility, weakness, and s afety. OT focused on functional mobility, UE strength and ROM, and ADL abilities; PT focused on LB strength, transfer techniques and gait/ balance: Pt educated on ARU expectations and OT role. Pt completes sit to stand from EOB with max Ax2 to begin. Takes multiple steps, requiring rest break after 1 min. Pt transferred to gym by w/c due to decreased UE strength and ability to propel w/c with cues for positioning. Pt completes LB/ UB exercises in gym, focusing on strength and ROM. Pt unable to sit to stand upon multiple trials, transferred to room, EOB with mod A and FWW. Pt completes sponge bath EOB, PT focusing on sitting balance and LB movement as OT completes energy conservation techniques and bathing. Pt sit to stand 2x during shower, both with mod A with bed raised. Pt transfers to bedside commode, sit to stand from commode with multiple cues for hand placement, safety, and foot placement. Pt sit to stand with mod A. Pt takes ~10 steps to situate in front of recliner chair, requires max A for positioning hips in supportive position in back of chair. Pt left with call light in reach, all needs met, all questions addressed. Education OT Patient Education: Correct positioning, Energy conservation, Exercise program, Modified ADL techniques, Progress toward Goal/Update tx plan, Purpose of tx/functional activities, Rehab process, Safety issues, Transfer techniques, W/C management Teaching Recipient: Patient Teaching Methods: Demonstration, Discussion Response to Teaching: Verbalize Understanding, Return Demonstration, Reinforcement Needed OT Short Term Goals Short Term Goals Upper Body Dressing(FIM): 4 Lower Body Dressing(FIM): 3 Toileting(FIM): 2 Transfers (B,C,W/C) (FIM): 3 Additional Short Term Goals: 1-Demonstrate ADL Tasks, 2-Verbalize Understanding, 3-ImproveStrength/[place] 1=Demonstrate adherence to instructed precautions during ADL tasks. 2=Patient will verbalize/demonstrate understanding of assistive devices/modifications for ADL. 3=Patient will improve strength/tolerance for activity to enable patient to perform ADL's. OT Improvement Lead Goals Fpc Goals Time Frame: Jul 11, 2019 Eating (QC): 6 Oral Hygiene (QC): 6 Shower/Bathe Self (QC): 5 Upper Body Dressing (QC): 6 Lower Body Dressing (QC): 4 On/Off Footwear (QC): 6 Toileting Hygiene (QC): 4 Toilet/Commode Transfer (QC): 6 Additional Goals: 1-Demonstrate ADL Tasks, 2-Verbalize Understanding, 3- ImproveStrength/[place] 1=Demonstrate adherence to instructed precautions during ADL tasks. 2=Patient will verbalize/demonstrate understanding of assistive devices/modifications for ADL. 3=Patient will improve strength/tolerance for activity to enable patient to perform ADL's. OT Education/Plan Problem List/Assessment Assessment: Decreased Activ Tolerance, Decreased UE Strength, Dependent Transfers, Edema, Impaired Bed Mobility, Impaired Funct Balance, Impaired I ADL's, Impaired Self-Care Skills, Restricted Funct UE ROM Discharge Recommendations Plan/Recommendations: Continue POC Therapy Discharge Recommendati: Scheduled Assistance, Post Acute OT Patient/Family Goals - Walk with FWW - Increase strength - Become more IND Treatment Plan/Plan of Care Treatment,Training & Education: Yes Patient would benefit from OT for education, treatment and training to promote independence in ADL's, mobility, safety and/or upper extremity function for ADL's. Plan of Care: ADL Retraining, Caregiver Training, Concurrent Therapy, Functional Mobility, Group Exercise/Act as Ind, UE Funct Exercise/Act, W/C Management Training Treatment Duration: Jul 11, 2019 Frequency: At least 5 of 7 days/Wk (IRF) Estimated Hrs Per Day: 1.5 hours per day Agreement: Yes Rehab Potential: Fair Time/GCodes Start Time: 12:55 (2nd start time 1315) Stop Time: 14:35 Total Time Billed (hr/min): 90 Billed Treatment Time OT evaluation [id number]; OT/ PT co treat [id number] 1, EVM (10), EX (20), ADL4 (60)= 90 CHRYSTAL HOPE OTR Jun 27, 2019 14:35 POS
--- NOTE | 2019-06-27 14:38 | Physical Therapy Evaluation ---
PT Evaluation-General Medical Diagnosis Admission Date Jun 27, 2019 at 12:45 Medical Diagnosis: SBO Onset Date: Jun 27, 2019 Therapy Diagnosis Therapy Diagnosis: generalized weakness, abn gait, decreased activity hamida Height/Weight Height (Feet): 5 Height (Inches): 2.00 Weight (Pounds): 200 Weight (Ounces): 0.0 Precautions Precautions/Isolations: Fall Prevention, Standard Precautions Weight Bear Status Right Lower Extremity: Right Full Weight Bearing Left Lower Extremity: Left Full Weight Bearing Referral Physician: Ace Reason for Referral: Evaluation/Treatment Medical History Pertinent Medical History: HTN Additional Medical History right THR and left TKR Current History Transfer from [facility] Reviewed History: Yes Social History Home: Single Level (Pt lives in xxzuxf-[id number] appartment with daughter.) Current Living Status: Children Entry Into Home: Ramp PT Steps Into Home: 0 PT Steps Inside Home: 3 Prior Prior Level of Function SCALE: Activities may be completed with or without assistive devices. 8-Dtuhusxsos-fywvord completes the activity by him/herself with no assistance from a helper. 5-Set-up or Clean-up Assistance-helper sets up or cleans up; patient completes activity. [place] assists only prior to or following the activity. 4-Supervision or Touching Assistance-helper provides verbal cues and/or touching/steadying and/or contact guard assistance as patient completes activity. Assistance may be provided throughout the activity or intermittently. 3-Partial/Moderate Assistance-helper does LESS THAN HALF the effort. [place] lifts, holds or supports trunk or limbs, but provides less than half the effort. 2-Substantial/Maximal Assistance-helper does MORE THAN HALF the effort. [place] lifts or holds trunk or limbs and provides more than half the effort. 1-Gwxhifjfx-ttcwdz does ALL the effort. Patient does none of the effort to complete the activity. Or, the assistance of 2 or more helpers is required for the patient to complete the activity. If activity was not attempted, code reason: 7-Patient Refused. 9-Not Applicable-not attempted and the patient did not perform the activity before the current illness, exacerbation or injury. 10-Not Attempted due to Environmental Limitations-(lack of equipment, weather restraints, etc.). 88-Not Attempted due to Medical Conditions or Safety Concerns. Bed Mobility: 6 Transfers (B,C,W/C): 6 Gait: 6 Stairs: 6 (with FWW ) Indoor Mobility (Ambulation): Independent Stairs: Independent Prior Devices Use: Walker Pt reports she has used FWW since she had a R VERONICA on 04/09/19. PT Evaluation-Current Subjective Pt in bed with OT in the room pre-tx. Pt agrees to PT this afternoon. This will be a co-treatment with OT secondary to pt's decreased activity hamida, quick fatigue, poor dynamic balance, and mod-sev generalized weakness. Post-tx, pt in recliner with feet up with call light, room phone, and tray in reach with all needs met at this time. Dr Bello in room at this time. Pain Numeric Pain Scale: 5-Moderate Pain Comment: Pt won't describe pain states it hurts all over. RN notified blanquita stoner Pt/Family Goals to get home, and to get back to walking on her own with a walker again. Objective Patient Orientation: Person, Place, Eyes Open Attachments: Colostomy/Ileostomy, IV ROM/Strength Strength Lower Extremities R LE hip flexion <3/5, Knee flexion 4-/5, Knee extension 4-/5, dorsiflexion 4-/5 L LE hip flexion 3/5, Knee flexion/extension/DF all globally 4/5 Integumentary/Posture Integumentary see nursing note. Bowel Incontinence: Yes Bladder Incontinence: Yes Posture pt leans forward and stays flexed at the hips. Sensory Vision: Wears Glasses (reading glasses) Hearing: Functional Hand Dominance: Right Sensation Right Lower Extremit: Intact Sensation Left Lower Extremity: Intact Transfers Roll Left to Right (QC): 2 (maxA) Sit to Lying (QC): 1 (dep) Lying to Sitting/Side of Bed(Q: 2 (MaxA) Sit to Stand (QC): 1 (MaxAx2) Chair/Ywi-vz-Qgzrz Xfer(QC): 1 (depX2) Car Transfer (QC): 88 Pt had some sit to stands that she could complete with Mildred. Pt has difficulty with lower surfaces. Pt attempts all stands pulling up from walker and staying hunched over. requires max cueing to use hand ux visual designer and stand up tall. Pt was able to stand and take multiple steps to get from bed to commode to chair min-modA Gait Does the Patient Walk?: Yes Walk 10 feet (QC): 3 (Mildred) Walk 50 ft with 2 Turns(QC): 88 Walk 150 ft (QC): 88 Walking 10ft/uneven surface-QC: 88 Distance: 20' Gait Assistive Device: FWW Comments/Gait Description Pt used short shuffled steps with a step through gait pattern with a shorter swing through on the R LE. Pt relies heavily on the B/L UE's for gait. pt ambulates with the R LE turned out with no heel first contact. Wheelchair Training Does the Pt Use a Wheelchair?: Yes Distance: 50' Wheel 50 ft with 2 turns (QC): 3 (modA) Wheel 150 ft (QC): 9 Type of Wheelchair: Manual pt is very slow propelling the WC assist was given as pt was not able to move enough distance to progress with self propel. Stairs 1 Step (curb) (QC): 88 4 Steps (QC): 88 12 Steps (QC): 88 Balance Sitting Static: Fair Sitting Dynamic: Poor Standing Static: Fair Standing Dynamic: Poor Picking up an Object (QC): 88 Treatment pt will be co-tx due to pt's decreased activity hamida, quick fatigue, poor dynamic balance, and mod-sev generalized weakness, and need for x2 assist for some transfers and mobility. PT addressed functional LE strengthening (1set of 10 reps seated HS's, LAQ's, marching, 8 sit<->stands), Transfer training, bed mobility training, balance training in sitting and standing, skilled ambulation training, toileting, and education this date. OT addressed UE functioning and ADL activity with PT assessing the patients balance and LE involvement at these times. Assessment/Needs Pt LE fatigue very fast which limit pt's ambulation and transfer participation. Pt has leaned over on her FWW to walk since March and does not want to change how she walks at this time. Pt has mod-sev weakness in the R LE that impairs her ability to position the R foot ideally for standing. Rehab Potential: Fair PT Electric Blanket Packer Goals Nursing Home Goals PT Electric Blanket Packer Goals Time Frame: Jul 19, 2019 Sit to Lying (QC): 5 Lying-Sitting on Side/Bed(QC): 5 Sit to Stand (QC): 5 Roll Left to Right (QC): 5 Chair/Mur-oo-Ovkws Xfer(QC): 5 Car Transfer (QC): 5 Does the Patient Walk: Yes Distance: 150' Walk 10 feet (QC): 4 (CGA) Walk 10ft-Uneven Surface(QC): 4 (CGA) Walk 50ft with 2 Turns (QC): 4 (CGA) Gait Assistive Device: FWW Does the Pt use WC or Scooter?: No 1 Step (curb) (QC): 3 (Mildred) PT Plan Problem List Problem List: Activity Tolerance, Functional Strength, Safety, Balance, Gait, Transfer, Bed Mobility Treatment/Plan Treatment Plan: Continue Plan of Care Treatment Plan: Bed Mobility, Education, Functional Activity Chuyita, Functional Strength, Group Therapy, Gait, Safety, Therapeutic Exercise, Transfers Treatment Duration: Jul 19, 2019 Frequency: At least 5 of 7 days/Wk (IRF) Estimated Hrs Per Day: 1.5 hours per day Patient and/or Family Agrees t: Yes Safety Risks/Education Patient Education: Gait Training, Transfer Techniques, Correct Positioning, Safety Issues Teaching Recipient: Patient Teaching Methods: Demonstration, Discussion Response to Teaching: Return Demonstration, Reinforcement Needed Time/GCodes Time In: 1305 Time Out: 1435 Total Billed Treatment Time: 90 Total Billed Treatment 1 visit EVM 10' ([id number]) Co-tx [id number] FA x 3 45' GT 15' EX 20' RYLAND APONTE PT Jun 27, 2019 14:38 POS
--- NOTE | 2019-06-27 14:47 | ST Cognitive Linguistic Eval ---
Speech Evaluation-General Medical Diagnosis Diverticulitis secondary to appendicitis, Deconditioning Onset Date: Jun 27, 2019 Therapy Diagnosis Therapy Diagnosis: Cognitive-communication Precautions Precautions/Isolations: Fall Prevention, Standard Precautions Referral Referring Physician: Dr. Bello Reason for Referral: Evaluation/Treatment Medical History Pertinent Medical History: HTN Reviewed History: Yes Social History Current Living Status: Mother in law house next to daughter Speech PLF-Current Status Prior Level of Function Patient lived home alone next to her daughter. She was independent for most of her daily needs. Subjective Patient was pleasant and compliant with cognitive assessment. Language Eval: Auditory Comprehends Simple Yes/No Ques: Functional Indent/Objects Multiple Chaney: Functional Ident/Pics in Multiple Chaney: Functional Follows 1-Step Commands: Functional Follows Complex Directions: Functional Follows General Conversations: Functional Language Eval: Verbal Language Completes Spontaneous Greeting: Functional Produces Auto, Serial Info: Functional Imitates Simple Words/Phrases: Functional Word Finding: Functional Requests Basic Needs: Functional States Basic Personal Info: Functional Expresses Complex Ideas: Functional Objective Cognitive Domain Attention: WNL Memory: WNL Problem Solving: Functional Executive Functions: WNL Visuospatial Skills: WNL Composite Severity Rating: WNL Clock Drawing Severity Rating: WNL Objective Formal/Standardized Tests [facility] Status ([facility]) Results 29/30, within normal range of function Oral Motor/Speech Production Within Functional Limits Impression Patient is a pleasant 78 year old woman who was admitted to the ARU for strengthening prior to returning home. Patient was administered the SLUMS with a score of 29/30. Patient's score is within the normal range of function and does not require further services for cognition. Speech Patient Assess Expression of Ideas/Wants: Expression (4) Understanding Verbal Content: Understands (4) Brief Interview-Mental Status: Yes Repetition of Three Words: Three (3) Temporal Orientation: Year: Correct (3) Temporal Orientation: Month: Accurate within 5 days(2) Temporal Orientation: Day: Correct (1) Recall : Wear to say "Sock": Yes, no cue required (2) Recall : Color: Yes, no cue required (2) Recall : Bed: Yes, no cue required (2) Memory/Recall Ability: Current season, That he or she is in a hsp/hsp unit Speech-Plan Patient/Family Goals Patient/Family Goals: Patient plans on returning to her home post rehab. Treatment Plan Speech Therapy Treatment Plan: Discontinue ST Patient does not require skilled ST at this time. Treatment Duration: Jun 27, 2019 Frequency: 1 time per week Estimated Hrs Per Day: .25 hour per day Rehab Potential: Good Barriers to Learning: None identified Pt/Family Agrees to Plan: Yes Safety Risks/Education Teaching Recipient: Patient Teaching Methods: Discussion Response to Teaching: Verbalize Understanding Education Topics Provided: Safety within her room Time Speech Therapy Time In: 14:30 Speech Therapy Time Out: 14:45 Total Billed Time: 15 Billed Treatment Time 1, MARILYN Jj Jun 27, 2019 14:47 POS
--- NOTE | 2019-06-27 15:09 | PM&R Post Admission Assessment ---
PM&R HP Date of Visit: Jun 27, 2019 Time of Visit: 14:15 History of Present Illness Chief complaint: Debility following critical illness. HPI: This is an 78[address] Cody Padilla who underwent a colon resection due to a bowel obstruction at [facility] by Dr. Santos, was treated for sepsis maintained on Clinimix and Zosyn with NPO status and sent to [facility] due to severe anasarca. She did diurese off 40lbs of weight of water weight and she was eating well, needed a lot more therapy to strengthen, but she was motivated to get better to go back home with her daughter. Her prior level of functioning was with the use of a walker and just overall weakness requiring intensive therapies after discharge from [facility] in order to be able to go home after the stay in inpatient rehab. She does have a decubitis ulcer of the left upper thigh area, that will be addressed and Dr. Santos will evaulute. Past Onyvbzx-Flxwcb-Yrmbwi Hx Past Med/Social Hx: Reviewed Nursing Past Med/Soc Hx, Reviewed and Corrections made Patient Social History Marrital Status: single Employed/Student: retired Alcohol Use: Denies Use Smoking Status: Never a Smoker 2nd Hand Smoke Exposure: No Recent Hopitalizations: Yes (hip sx 04/15) Immunizations Up To Date Date of Pneumonia Vaccine: Aug 28, 2013 Past Medical History Surgeries: Appendectomy, Hysterectomy, Orthopedic Colon resection with colostomy due to obstruction Dr Santos Cardiac: High Cholesterol, Hypertension Neurological: Neuropathy Gastrointestinal: Gastroesophageal Reflux, Diverticulosis Musculoskeletal: Chronic Back Pain Endocrine: Hypothyroidsim History of Blood Disorders: No Family History No Pertinent Family Hx, Cancer (Breast), Diabetes, Hypertension Self Care: Independent Functional Cognition: Independent 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 Pt requires assist with below knee, chelsie/ bottom, and back. Pt requires cues for thoroughness under arms; pt states weakness in arms, able to reach underneath ) Upper Body Dressin (Min A EOB) Lower Body Dressin (TD with LB dressing, pt sit to stand with max-mod A (bed raised for ease), breif placed under pt's bottom. Nursing present during bottom hygiene for skin check- pt has wounds on R bottom and one ~1 in. in between legs on L medial thigh) On/Off Footwear: 1 (TD, unable to reach top of socks) Toileting Hygiene: 1 (Unable to reach bottom during stance.) Toilet Transfer: 2 (Max-mod A with multiple trials ) PM&R Allergy/Meds/Data Review Allergies Coded Allergies: Sulfa (Sulfonamide Antibiotics) (Unverified Allergy, Unknown, 05/31/19) Home Medications Reported Medications Oxycodone HCl (Oxycodone HCl) 10 Mg Tablet, 10 MG PO Q12H PRN for PAIN-SEVERE, TAB 06/27/19 Furosemide (Furosemide) 40 Mg Tablet, 40 MG PO DAILY, TAB 06/27/19 Aspirin (Aspirin EC) 81 Mg Tablet.dr, 81 MG PO BID, TAB 06/27/19 Amitriptyline HCl (Amitriptyline HCl) 10 Mg Tablet, 10 MG PO HS, TAB 06/27/19 Ondansetron HCl (Zofran) 4 Mg Tab, 4 MG PO TID PRN for NAUSEA/VOMITING-1ST LINE, TAB 06/27/19 Gabapentin (Gabapentin) 100 Mg Capsule, 100 MG PO TID, CAP 06/27/19 Docusate Sodium (Colace) 100 Mg Capsule, 100 MG PO DAILY PRN for CONSTIPATION- 1ST LINE, CAP 05/27/19 Simvastatin (Simvastatin) 40 Mg Tablet, 40 MG PO HS, TAB 05/27/19 Potassium Chloride (Klor-Con M20) 20 Meq Tab.er.prt, 20 MEQ PO DAILY, TAB 05/27/19 Levothyroxine Sodium (Synthroid) 50 Mcg Tablet, 50 MCG PO DAILY, TAB 05/27/19 Lisinopril (Lisinopril) 10 Mg Tablet, 10 MG PO DAILY, TAB 05/27/19 Hydrocodone/Acetaminophen (Hydrocodone-Acetamin 5-325 mg) 1 Each Tablet, 1 TAB PO Q4H PRN for PAIN-MODERATE, TAB 05/27/19 Discontinued Reported Medications Ondansetron HCl (Ondansetron HCl) 4 Mg Tablet, 4 MG PO TID PRN for NAUSEA/VOMITING-1ST LINE, TAB 05/27/19 Gabapentin (Gabapentin) 100 Mg Capsule, 100 MG PO TID, CAP 05/27/19 Discontinued Scripts [tpn] 1 EA No Conflict Check, 1 EA IV DAILY for 30 Days Prov:CODY HERMAN MD 06/06/19 Piperacillin Sodium/Tazobactam (Zosyn 4.5 Gram Vial) 4.5 Gm Vial, 4.5 GM IV Q8H for 2 Days, VIAL Prov:CODY HERMAN MD 06/06/19 Insulin Aspart (Novolog) 100 Unit/1 Ml Susp, 0 UNIT SC ACHS for 30 Days, ML Prov:CODY HERMAN MD 06/06/19 Bumetanide (Bumetanide) 1 Mg/4 Ml Inj, 0.5 MG IV BID for 30 Days, VIAL Prov:CODY HERMAN MD 06/06/19 Hydromorphone HCl/Pf (Hydromorphone HCl 2 mg/ml Amp) 2 Mg/1 Ml Ampul, 0.5-1 MG IV Q4HR PRN for PAIN-SEVERE for 30 Days, ML Prov:CODY HERMAN MD 06/06/19 Hydrocodone Bit/Acetaminophen (Hydrocodone/Acetaminophen 5/325mg Tablet) 1 Tab Tab, 1 TAB PO Q4H PRN for PAIN-MODERATE for 30 Days, TAB Prov:CODY HERMAN MD 06/06/19 Fentanyl Citrate (Fentanyl 0.05 mg/ml Ampul) 100 Mcg/2 Ml Soln, 50 MCG IV Q4H PRN for PAIN-SEVERE for 30 Days, EA Prov:CODY HERMAN MD 06/06/19 Hydralazine HCl (Hydralazine HCl) 20 Mg/1 Ml Vial, 10 MG IV Q6HR PRN for bp for 30 Days, VIAL Prov:CODY HERMAN MD 06/06/19 Current Medications Current Medications Reviewed Physical Exam AFVSS, pleasant, O x 3, sitting in chair, cooperative, frail, weak, pale RRR, no murmur CTAB no rales noted No abdominal pain on palpation 2+ edema lower legs No neuro deficits, weakened all extremities PM&R Medical Assessment & Plan REHAB/MEDICAL ASSESSMENT AND PLAN: REHAB IMPAIRMENT GROUP: 1 person assist 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 The comorbidities that impact the patients function and/or functional outcome by: new colostomy, new decubitus ulcer, anasarca REHAB PLAN: The patient is being admitted to our comprehensive inpatient rehabilitation facility and can tolerate the intensity of service consisting of at least: 180 minutes of therapy a day, 5 out of 7 days a week Rehab treatment will consist of: PT will focus to improve ambulation and OT will focus on improving ADL independence The patient/family has a good understanding of our discharge process and will benefit from an interdisciplinary inpatient rehabilitation program. The patient has potential to make improvement and is in need of at least two of the following multidisciplinary therapies including but not limited to physical, occupational, speech, and prosthetics and orthotics. Additionally the patient will need services from respiratory, nutritional services, wound care, psychology, etc. (Customize this to each patient). Given the patients complex condition and risk of further medical complications, rehabilitation services cannot be safely or effectively provided at a lower level of care such as a longterm facility. BARRIERS TO DISCHARGE: Able to ambulate independently and complete ADL's along with transfers and self care for colostomy ESTIMATED LOS: 14 days DISPOSITION: Home with daughter RELEVANT CHANGES SINCE PREADMISSION SCREENING: I have compared the patients medical and functional status at the time of the preadmission screening and there are: no changes PROGNOSIS: Good REHABILITATION GOALS: 1. Ambulate without falls 2. Complete ADL's independently All the above goals were reviewed with the patient and he/she is in agreement. By signing this document, I acknowledge that I have personally performed a full physical examination on this patient within 24 hours of admission to this inpatient rehabilitation facility and have determined the patient to be able to tolerate the above course of treatment at an intensive level for a reasonable period of time. I will be completing a detailed individualized Plan of Care for this patient by day #4 of the patients stay based upon the Preadmission Screen, the Post-Admission Evaluation, and the therapy evaluations. Admission Dx/Comorbidities: (1) Myopathy ICD Codes: G72.9 - Myopathy, unspecified (2) HFrEF (heart failure with reduced ejection fraction) Status: Acute ICD Codes: I50.20 - Unspecified systolic (congestive) heart failure (3) Hypothyroid Status: Chronic ICD Codes: E03.9 - Hypothyroidism, unspecified (4) Acute on chronic kidney failure Status: Acute ICD Codes: N17.9 - Acute kidney failure, unspecified; N18.9 - Chronic kidney disease, unspecified (5) Diverticulitis of intestine with perforation Status: Acute ICD Codes: K57.80 - Diverticulitis of intestine, part unspecified, with perf oration and abscess without bleeding (6) Acute respiratory failure with hypoxia Status: Acute ICD Codes: J96.01 - Acute respiratory failure with hypoxia (7) Atrial fibrillation with RVR Status: Acute ICD Codes: I48.91 - Unspecified atrial fibrillation (8) Partial small bowel obstruction ICD Codes: K56.600 - Partial intestinal obstruction, unspecified as to cause (9) Hypertension ICD Codes: I10 - Essential (primary) hypertension MATT NEWELL DO Jun 27, 2019 15:09 POS
[2019-06-27] MEDS ORDERED: MELATONIN 3 MG TABLET PO PRN (16:00)
[2019-06-27] MEDS ORDERED: ACETAMINOPHEN 325 MG TABLET PO PRN (16:00)
[2019-06-27] MEDS ORDERED: NON-FORMULARY MEDICATION 1 EA EA (Hydrocodone/Acetaminophen (Hydrocodone-Acetamin 5-325 mg PO PRN (16:00)
[2019-06-27] MEDS ORDERED: DOCUSATE SODIUM 100 MG (COLACE) CAP PO PRN (16:00)
[2019-06-27] MEDS ORDERED: diphenhydrAMINE 25 MG TAB (BENADRYL) PO PRN (16:00)
[2019-06-27] MEDS ORDERED: FURO40TA4 PO (16:25)
[2019-06-27] MEDS ORDERED: GABA-486 PO (16:25)
[2019-06-27] MEDS ORDERED: ASPI-983 PO (16:25)
[2019-06-27] MEDS ORDERED: OXYC10TA7 PO (16:25)
[2019-06-27] MEDS ORDERED: AMIT10TA6 PO (16:25)
[2019-06-27] MEDS ORDERED: ONDN4T PO (16:25)
[2019-06-27] MEDS: ONDANSETRON 4 MG (ZOFRAN) ORAL DISSOLVE TAB PO PRN (16:58)
[2019-06-27] MEDS: ENOXAPARIN 40 MG/0.4 ML (LOVENOX) SYR SC SCH (16:59)
[2019-06-27] MEDS ORDERED: NON-FORMULARY MEDICATION 1 EA EA (Enoxaparin Sodium (Lovenox) 40 MG) SQ SCH (17:00)
[2019-06-27 18:02] VITALS: BP 135/71
[2019-06-27] MEDS: SENNA W/DOCUSATE (SENOKOT S) TABLET PO SCH (20:10)
[2019-06-27] MEDS: MELATONIN 3 MG TABLET PO SCH (20:11)
[2019-06-27] MEDS: SIMvastatin 40 MG (ZOCOR) TAB PO SCH (20:11)
[2019-06-27] MEDS: GABAPENTIN 300 MG (NEURONTIN) CAP PO SCH (20:11)
--- NOTE | 2019-06-27 20:36 | NUR ---
Pt states that she does not want CPR done, requests to be a DNR. Notifed Dr. Bello & rec'd order.
[2019-06-27] MEDS ORDERED: NON-FORMULARY MEDICATION 1 EA EA (Melatonin 6 MG) PO SCH (21:00)
[2019-06-28 05:08] VITALS: BP 150/72
[2019-06-28 05:52] LABS: HEMOGLOBIN 7.3 G/DL (11.5-16.0); MEAN PLATELET VOLUME 10.4 FL (7.4-10.4); RED CELL DISTRIBUTION WIDTH 14.9 % (10.0-14.5); WHITE BLOOD COUNT 10.9 10^3/uL (4.3-11.0)
[2019-06-28] MEDS: LEVOTHYROXINE 50 MCG (LEVOTHROID) TAB PO SCH (06:06)
[2019-06-28] MEDS: PANTOPRAZOLE 40 MG (PROTONIX) TAB PO SCH (06:06)
[2019-06-28 06:14] LABS: ALBUMIN 3.1 GM/DL (3.2-4.5); BILIRUBIN,TOTAL 0.4 MG/DL (0.1-1.0); CALCIUM 8.9 MG/DL (8.5-10.1); CREATININE SERUM 1.46 MG/DL (0.60-1.30); POTASSIUM 4.5 MMOL/L (3.6-5.0); TOTAL PROTEIN 5.6 GM/DL (6.4-8.2)
[2019-06-28] MEDS: GABAPENTIN 300 MG (NEURONTIN) CAP PO SCH ×3 (07:48→20:05)
[2019-06-28] MEDS: SENNA W/DOCUSATE (SENOKOT S) TABLET PO SCH ×2 (07:48→20:05)
[2019-06-28] MEDS: DOCUSATE SODIUM 100 MG (COLACE) CAP PO SCH (07:48)
--- NOTE | 2019-06-28 08:13 | Physical Therapy Daily Note ---
PT Daily Note-Current Subjective Pt agreeable to PT session. Pain Numeric Pain Scale: 0-No Pain Appearance Pt in bed awake and alert upon arrival. Requesting and assisted to BSC. At end of session, pt sitting up in w/c, call light, phone and bedside table within reach and nurse present Mental Status Patient Orientation: Person, Place, Time, Eyes Open, Situation Attachments: Saline Lock, SCD's, Colostomy/Ileostomy Transfers SCALE: Activities may be completed with or without assistive devices. 9-Yrvqquogyz-pinuund completes the activity by him/herself with no assistance from a helper. 5-Set-up or Clean-up Assistance-helper sets up or cleans up; patient completes activity. [place] assists only prior to or following the activity. 4-Supervision or Touching Assistance-helper provides verbal cues and/or touching/steadying and/or contact guard assistance as patient completes activity. Assistance may be provided throughout the activity or intermittently. 3-Partial/Moderate Assistance-helper does LESS THAN HALF the effort. [place] lifts, holds or supports trunk or limbs, but provides less than half the effort. 2-Substantial/Maximal Assistance-helper does MORE THAN HALF the effort. [place] lifts or holds trunk or limbs and provides more than half the effort. 2-Xyhikkbae-qyaogx does ALL the effort. Patient does none of the effort to complete the activity. Or, the assistance of 2 or more helpers is required for the patient to complete the activity. If activity was not attempted, code reason: 7-Patient Refused. 9-Not Applicable-not attempted and the patient did not perform the activity before the current illness, exacerbation or injury. 10-Not Attempted due to Environmental Limitations-(lack of equipment, weather restraints, etc.). 88-Not Attempted due to Medical Conditions or Safety Concerns. Transfers (B, C, W/C): 3 Sit to Stand (QC): 3 Chair/Nnx-ts-Dwacu Xfer(QC): 4 min to mod A required with sit to stand transfers, skilled inst required for technique. CGA sit to stand with bed elevated. CGA provided with pivot chair to BSC and BSC to w/c transfers Weight Bearing Right Lower Extremity: Right Full Weight Bearing Left Lower Extremity: Left Full Weight Bearing Gait Training Does the Patient Walk?: Yes Distance: 18, 14, 30 Walk 10 feet (QC): 4 Gait Persons Needed: 1 Gait Assistive Device: FWW Gait with walker 18' and 14 ft CGA, Gait in // bars x30' CGA, very slow, cautious and guarded, slight fwd flexed posture with skilled inst for erect posture for balance and decreased reliance on walker. Pt report of dizziness during gait with walker. Exercises Seated Therapy Exercises: Ankle pumps (13), Long arc quads pt with increasing c/o nausea, dizziness and abdominal pain NuStep Minutes: 4 (stopped on NuStep due to increased c/o of nausea and dizziness) NuStep Workload: 3 (seat 10, arms 10) Treatments education, safety, transfers, dressing, toileting, gait, strength, balance, activity tolerance, functional mobility Assessment Current Status: Good Progress increased dizziness, abdominal pain 4/6 and nausea by end of tx session, nsg aware and present administering medication. Nurse states pt's Hbg is at 7.3 PT Short Term Goals Short Term Goals Wheelchair Distance: 50' PT [place] Polisher Goals [place] Polisher Goals PT [place] Polisher Goals Time Frame: Jul 19, 2019 Sit to Lying (QC): 5 Lying-Sitting on Side/Bed(QC): 5 Sit to Stand (QC): 5 Roll Left to Right (QC): 5 Chair/Mle-pp-Dojij Xfer(QC): 5 Car Transfer (QC): 5 Does the Patient Walk: Yes Distance: 150' Walk 10 feet (QC): 4 (CGA) Walk 10ft-Uneven Surface(QC): 4 (CGA) Walk 50ft with 2 Turns (QC): 4 (CGA) Gait Assistive Device: FWW Does the Pt use WC or Scooter?: No 1 Step (curb) (QC): 3 (Mildred) PT Plan Treatment/Plan Treatment Plan: Continue Plan of Care Treatment Plan: Bed Mobility, Education, Functional Activity Chuyita, Functional Strength, Group Therapy, Gait, Safety, Therapeutic Exercise, Transfers Treatment Duration: Jul 19, 2019 Frequency: At least 5 of 7 days/Wk (IRF) Estimated Hrs Per Day: 1.5 hours per day Patient and/or Family Agrees t: Yes Safety Risks/Education Patient Education: Gait Training, Transfer Techniques, Safety Issues Teaching Recipient: Patient Teaching Methods: Demonstration, Discussion Response to Teaching: Verbalize Understanding, Return Demonstration Time/GCodes Time In: 800 Time Out: 900 Total Billed Treatment Time: 60 Total Billed Treatment 1 visit, GT x20 min, FA x30 min, EX x10 min VERA PORTILLO PTA Jun 28, 2019 08:13 POS
[2019-06-28] MEDS: ONDANSETRON 4 MG (ZOFRAN) ORAL DISSOLVE TAB PO PRN (08:51)
--- NOTE | 2019-06-28 08:57 | NUR ---
DR NEWELL HER TO SEE PATIENT. NEW ORDERS. KAYLEN GIVEN FOR C/O NAUSEA. CONT TO MONITOR. Addendum: 06/28/19 at 1020 by CHANDANA ARANA RN Berkley/Clarice THOMASON, HGB 7.3, NEW ORDERS TO CONT KATELIN REGIMEN
[2019-06-28] MEDS ORDERED: FUROSEMIDE 40 MG (LASIX) TAB ONE (09:19)
[2019-06-28] MEDS: FUROSEMIDE 40 MG (LASIX) TAB PO SCH (09:23)
[2019-06-28] MEDS: KCL 20 MEQ TAB (K-DUR) PO SCH (09:23)
--- NOTE | 2019-06-28 09:30 | NUR ---
PATIENT DENIES NAUSEA. ZOFRAN EFFECTVIE. CONT TO MONIT.
[2019-06-28] MEDS: lisINopril 10 MG (PRINIVIL) TABLET PO SCH (10:20)
--- NOTE | 2019-06-28 10:49 | PM&R Progress Note ---
Subjective HPI/CC On Admission Date Seen by Provider: Jun 28, 2019 Time Seen by Provider: 08:45 Subjective/Events-last exam Had some nausea after therapy Set a slower pace of therapy 11/03 due to severely weakened state Hemoglobin 7.3 asymptomatic but will check iron level and may need IV iron infusions Lasix restarted Wide Vic wraps will be used to wrap legs to minimize the volume overload into the tissues Colostomy working adequately Appreciate general surgery for decubitus ulcer management and colostomy ev aluation 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 with odd bundle worker of Systems General: Fatigue Gastrointestinal: Nausea, Vomiting Objective Exam Vital Signs Vital Signs Date Time Temp Pulse Resp B/P (MAP) Pulse Ox O2 Delivery O2 Flow Rate FiO2 06/28/19 09:32 94 Room Air 06/28/19 05:08 36.4 70 18 150/72 (98) Capillary Refill : Less Than 3 Seconds General Appearance: No Apparent Distress, WD/WN, Chronically ill HEENT: PERRL/EOMI, Normal ENT Inspection, Pharynx Normal Neck: Full Range of Motion, Normal Inspection Respiratory: Lungs Clear, Normal Breath Sounds Cardiovascular: Regular Rate, Rhythm Extremity: Normal Capillary Refill, Normal Inspection, Normal Range of Motion (severely weakened), Non Tender, No Calf Tenderness, Pedal Edema Neurologic/Psychiatric: Alert, Oriented x3, No Motor/Sensory Deficits, Normal Mood/Affect, urologic nurse II-XII Norm as Tested Results/Procedures Lab Laboratory Tests 06/28/19 05:10 Patient resulted labs reviewed. FIM Transfers Therapy Code Descriptions/Definitions Functional Ax[place] Measure: 0=Not Assessed/NA 4=Minimal Assistance 1=Total Assistance 5=Supervision or Setup 2=Maximal Assistance 6=Modified Axis 3=Moderate Assistance 7=Complete IndependenceSCALE: Activities may be completed with or without assistive devices. 6-Yajqweeflh-mabmoga completes the activity by him/herself with no assistance from a helper. 5-Set-up or Clean-up Assistance-helper sets up or cleans up; patient completes activity. [place] assists only prior to or following the activity. 4-Supervision or Touching Assistance-helper provides verbal cues and/or touching/steadying and/or contact guard assistance as patient completes activity. Assistance may be provided throughout the activity or intermittently. 3-Partial/Moderate Assistance-helper does LESS THAN HALF the effort. [place] lifts, holds or supports trunk or limbs, but provides less than half the effort. 2-Substantial/Maximal Assistance-helper does MORE THAN HALF the effort. [place] lifts or holds trunk or limbs and provides more than half the effort. 7-Rsvswuggx-mhsbme does ALL the effort. Patient does none of the effort to complete the activity. Or, the assistance of 2 or more helpers is required for the patient to complete the activity. If activity was not attempted, code reason: 7-Patient Refused. 9-Not Applicable-not attempted and the patient did not perform the activity before the current illness, exacerbation or injury. 10-Not Attempted due to Environmental Limitations-(lack of equipment, weather restraints, etc.). 88-Not Attempted due to Medical Conditions or Safety Concerns. Roll Left to Right (QC): 2 (maxA) Sit to Lying (QC): 1 (dep) Sit to Stand (QC): 1 (MaxAx2) Chair/Cpz-yv-Fyhbp Xfer(QC): 1 (depX2) Car Transfer (QC): 88 Gait Training Does the Patient Walk?: Yes Walk 10 feet (QC): 3 (Mildred) Walk 50 ft with 2 Turns(QC): 88 Walk 150 ft (QC): 88 Walking 10ft/uneven surface-QC: 88 Gait Assistive Device: FWW Wheelchair Training Does the Pt Use a Wheelchair?: Yes Distance: 50' Wheel 50 ft with 2 turns (QC): 3 (modA) Wheel 150 ft (QC): 9 Type of Wheelchair: Manual Stair Training 1 Step (curb) (QC): 88 4 Steps (QC): 88 12 Steps (QC): 88 Balance Picking up an Object (QC): 88 ADL-Treatment Eating (QC): 6 (Pt drinks from cup/ straw) Oral Hygiene (QC): 5 (s/u for oral hygiene in chair) Shower/Bathe Self (QC): 2 (Pt completes sponge bath EOB, pt demonstrates fair dynamic sitting balance. Pt requires assist with below knee, chelsie/ bottom, and back. Pt requires cues for thoroughness under arms; pt states weakness in arms, able to reach underneath ) Upper Body Dressing (QC): 3 (Min A EOB) Lower Body Dressing (QC): 1 (TD with LB dressing, pt sit to stand with max-mod A (bed raised for ease), breif placed under pt's bottom. Nursing present during bottom hygiene for skin check- pt has wounds on R bottom and one ~1 in. in between legs on L medial thigh) On/Off Footwear (QC): 1 (TD, unable to reach top of socks) Toileting Hygiene (QC): 1 (Unable to reach bottom during stance.) Toilet Transfer (QC): 2 (Max-mod A with multiple trials ) Assessment/Plan Assessment and Plan Assess & Plan/Chief Complaint Assessment: Myopathy with debility Status post anasarca 40 pounds of diuresis at [place] New colostomy status Hypertension Volume overload with edema Severe anemia checking iron level may need iron infusions Plan: Checked meds and labs Inpatient rehabilitation protocol but is slower pace of 11/03 Monitor nausea Supportive care (1) Myopathy (2) HFrEF (heart failure with reduced ejection fraction) Status: Acute (3) Hypothyroid Status: Chronic (4) Acute on chronic kidney failure Status: Acute (5) Diverticulitis of intestine with perforation Status: Acute (6) Acute respiratory failure with hypoxia Status: Acute (7) Atrial fibrillation with RVR Status: Acute (8) Partial small bowel obstruction (9) Hypertension MATT NEWELL DO Jun 28, 2019 10:49 POS
--- NOTE | 2019-06-28 10:50 | Individualized Plan of Care ---
Individualized Plan of Care Rehab Nursing IPOC Order Admission Date Jun 27, 2019 at 12:45 Current Orders Orders Admission Order(Inpt,Obs,Sdc) (06/27/19 11:23) Vital Signs: Per Unit Policy ( 08,16,00 (06/27/19 11:23) Sterilizer Operator-Inpt Rehab Con (06/27/19 11:23) Rehab Nursing Orders-Ipoc (06/27/19 11:23) Physical Therapy Rehab Orders (06/27/19 11:23) Occupational Therapy Rehab Ord (06/27/19 11:23) Speech Therapy Rehab Orders (06/27/19 11:23) Precautions (Aru) (06/27/19 11:23) Weekly Weight WEEK (06/27/19 11:23) Rehab-Intensity Of Therapy (06/27/19 11:23) Initiate Admission Nursing Pro .admission (06/27/19 11:23) Initiate Admission Nursing Pro .admission (06/27/19 11:23) Consult General Surgery (06/27/19 12:41) Admission Arrival Bed Request (06/27/19 12:45) Hydrocodone/Apap 5/325 Tablet (Lortab 5 (06/27/19 13:45) General/Regular (06/27/19 Lunch) Consult Family Medicine (06/27/19 14:34) Cbc No Diff (06/28/19 06:00) Comprehensive Metabolic Panel (06/28/19 06:00) Prealbumin (06/28/19 06:00) Vic Bandage (06/27/19 14:37) Nursing Communication (Order) (06/27/19 14:37) Patient Visit (06/27/19 ) Speech Sound Lang Comp (06/27/19 ) Patient Visit (06/27/19 ) Pt Eval Moderate Complexity (06/27/19 ) Functional Activities, Ea 15 (06/27/19 ) Gait Training, Ea 15 Min (06/27/19 ) Exercise Therap, Ea 15 Min (06/27/19 ) Acetaminophen Tablet/Caplet (Tylenol T (06/27/19 16:00) Docusate Sodium Capsule (Colace Capsule) (06/28/19 09:00) Gabapentin Capsule/Tablet (Neurontin Cap (06/27/19 21:00) Levothyroxine Tablet (Synthroid Tablet) (06/28/19 06:30) Lisinopril Tablet (Zestril Tablet) (06/28/19 09:00) Pantoprazole Tablet (Protonix Tablet) (06/28/19 07:00) Potassium Chloride (Tablet) (K Dur Table (06/28/19 08:00) Simvastatin Tablet (Zocor Tablet) (06/27/19 21:00) (Nf) Enoxaparin Sodium (Lovenox) (06/27/19 17:00) (Nf) Hydrocodone/Acetaminophen (Hydrocod (06/27/19 16:00) (Nf) Melatonin (06/27/19 21:00) Melatonin Tablet (Melatonin Tablet) (06/27/19 21:00) Enoxaparin Injection (Lovenox Injection) (06/27/19 17:00) Calcium Carbonate Chew Tablet (Antacid C (06/27/19 16:00) Diphenhydramine Tablet (Benadryl Tablet) (06/27/19 16:00) Ondansetron Oral Dissolve Tab (Zofran (06/27/19 16:00) Melatonin Tablet (Melatonin Tablet) (06/27/19 16:00) Senna S Tablet (Senokot S Tablet) (06/27/19 21:00) Docusate Sodium Capsule (Colace Capsule) (06/27/19 16:00) Staple/Suture Removal (06/27/19 20:20) Code/Resuscitation (06/27/19 20:35) Ambulate 08,12,20 (06/27/19 20:48) Sequential Compression Device Q4H (06/27/19 20:48) Dvt/Vte Risk - Notifiy Physici Q4H (06/27/19 20:48) Iron Test (Fe) (06/28/19 08:20) Furosemide Tablet (Lasix Tablet) (06/28/19 09:00) Furosemide Tablet (Lasix Tablet) (06/28/19 09:19) Patient Visit (06/28/19 ) Gait Training, Ea 15 Min (06/28/19 ) Functional Activities, Ea 15 (06/28/19 ) Exercise Therap, Ea 15 Min (06/28/19 ) Rehab Nursing Orders: Ongoing Assess. of Cognitive Status, Ongoing Assess. of Function Status, Bladder Management, Bladder Scan, Bladder Training, Bowel Management, Bowel Training, Disease Management & Educaiton, DVT Prophylaxis, Fall Prevention, Fluid/Electrolyte/Nutrition Mgmt, Infection Prevention, Medication Management & Education, Management of Risks & Complications, Management of Skin Intergrity, Nutrition Management, Pain Management, Patient/Family Support, Safety Management Intensity of Therapy to be met Patient to be seen: 15 hrs over 7 cons. days PT IPOC Problem List: Activity Tolerance, Functional Strength, Safety, Balance, Gait, Transfer, Bed Mobility Treatment Plan: Continue Plan of Care Bed Mobility, Education, Functional Activity Chuyita, Functional Strength, Group Therapy, Gait, Safety, Therapeutic Exercise, Transfers Treatment Duration: Jul 19, 2019 Frequency: At least 5 of 7 days/Wk (IRF) Estimated Hrs Per Day: 1.5 hours per day OT IPOC Problems: Decreased Activ Tolerance, Decreased UE Strength, Dependent Transfers, Edema, Impaired Bed Mobility, Impaired Funct Balance, Impaired I ADL's, Impaired Self-Care Skills, Restricted Funct UE ROM OT Treatment, Training and Edu: Yes Plan of Care: ADL Retraining, Caregiver Training, Concurrent Therapy, Functional Mobility, Group Exercise/Act as Ind, UE Funct Exercise/Act, W/C Management Training Treatment Duration: Jul 11, 2019 Frequency: At least 5 of 7 days/Wk (IRF) Estimated Hrs Per Day: 1.[address] IPOC Speech Therapy Treatment Plan: Discontinue ST Treatment Duration: Jun 27, 2019 Frequency: 1 time per week Estimated Hrs Per Day: .25 hour per day Sterilizer Operator/Case Mgmt Sterilizer Operator/Case Managemen: Discharge Planning Dietitian/Mortgage Lender Dietitian/Mortgage Lender to monitor nutritional status and make changes and/or recommendations as needed and work with speech pathology on dietary upgrades as the occur. Physician IPOC Medical Issues being managed closely and that require the 24 hour availability of a physician: Recent critical illness with anasarca with continued hypervolemia with new colostomy status and new decubitus ulcer will require close monitoring due to advanced age Medical Issues: Bowel/Bladder Function, DVT Prophylaxis, Falls Precautions, Fluid/Electrolyte/Nutrition Balance, Pain Management Brief Synthesis of Preadmission Screen, Post-Admission Evaluation, and Therapy Evaluations: Physical therapy will work on ambulation and transfers due to severely weakened state Occupational therapy will help regain independent ADLs Medical Prognosis: Good Anticipated Length of Stay: 14 days MATT NEWELL DO Jun 28, 2019 10:49 POS
--- NOTE | 2019-06-28 12:07 | Occupational Ther Daily Note ---
OT Current Status-Daily Note Subjective Pt seen asleep in bed, awakes upon entry. Pt states no pain nor nausea. Pt agreeable to OT tx session. Mental Status/Objective Patient Orientation: Normal For Age ADL-Treatment Therapy Code Descriptions/Definitions Functional [place] Measure: 0=Not Assessed/NA 4=Minimal Assistance 1=Total Assistance 5=Supervision or Setup 2=Maximal Assistance 6=Modified [place] 3=Moderate Assistance 7=Complete IndependenceSCALE: Activities may be completed with or without assistive devices. 9-Qxwylazpzt-wcquqcq completes the activity by him/herself with no assistance from a helper. 5-Set-up or Clean-up Assistance-helper sets up or cleans up; patient completes activity. [place] assists only prior to or following the activity. 4-Supervision or Touching Assistance-helper provides verbal cues and/or touching/steadying and/or contact guard assistance as patient completes activity. Assistance may be provided throughout the activity or intermittently. 3-Partial/Moderate Assistance-helper does LESS THAN HALF the effort. [place] lifts, holds or supports trunk or limbs, but provides less than half the effort. 2-Substantial/Maximal Assistance-helper does MORE THAN HALF the effort. [place] lifts or holds trunk or limbs and provides more than half the effort. 4-Ushfribck-qwacsn does ALL the effort. Patient does none of the effort to complete the activity. Or, the assistance of 2 or more helpers is required for the patient to complete the activity. If activity was not attempted, code reason: 7-Patient Refused. 9-Not Applicable-not attempted and the patient did not perform the activity before the current illness, exacerbation or injury. 10-Not Attempted due to Environmental Limitations-(lack of equipment, weather restraints, etc.). 88-Not Attempted due to Medical Conditions or Safety Concerns. Eating (QC): 6 Oral Hygiene (QC): 6 (completes in w/c in front of sink) Toileting Hygiene (QC): 4 (CGA in stance) Toilet Transfer (QC): 4 (CGA from EOB to bedside commode, use of FWW) Other Treatment Pt completes bed mob with increased time and few cues for positioning. Pt expresses bathroom need, able to complete with CGA. Sit to stand CGA, commode replaced by w/c, sits. Pt able to propell w/c to bathroom to complete hygiene acts. Pt pushed in w/c to therapy gym, completes 10 minutes of arm bike exercise at min resistance (20 watt), no SOB noted. Pt attempts sit to stand to complete standing tolerance activities, not able to post-exercises due to fatigue in UE. Pt states she would like to work on UE strength. Pt educated on muscles that assist with sit to stand to aide in strengthening program. Pt complete UE exercises with 1# weight to include elbow flexion/ extension with gravity eliminated, back flies, wrist flexion/ extension, and bicep curls (each exercise 1 set of 20 reps). Pt completes TouchBistrody game, requires increased time for word finding. Pt sits in w/c, positioned in front of table in [facility] with other pts to increase socialization during lunch. Pt left with all needs met. Education OT Patient Education: Correct positioning, Energy conservation, Exercise program, Home exercise program, Modified ADL techniques, Purpose of tx/functional activities, Rehab process, Safety issues, Transfer techniques Teaching Recipient: Patient Teaching Methods: Demonstration, Discussion Response to Teaching: Verbalize Understanding, Return Demonstration, Reinforcement Needed OT Short Term Goals Short Term Goals Upper Body Dressing(FIM): 4 Lower Body Dressing(FIM): 3 Toileting(FIM): 2 (met) Transfers (B,C,W/C) (FIM): 3 (met) Additional Short Term Goals: 1-Demonstrate ADL Tasks, 2-Verbalize Understanding, 3-ImproveStrength/Chuyita 1=Demonstrate adherence to instructed precautions during ADL tasks. 2=Patient will verbalize/demonstrate understanding of assistive devices/modifications for ADL. 3=Patient will improve strength/tolerance for activity to enable patient to perf orm ADL's. OT Detention Goals Pantry Steward/Stewardess Goals Time Frame: Jul 11, 2019 Eating (QC): 6 Oral Hygiene (QC): 6 Shower/Bathe Self (QC): 5 Upper Body Dressing (QC): 6 Lower Body Dressing (QC): 4 On/Off Footwear (QC): 6 Toileting Hygiene (QC): 4 Toilet/Commode Transfer (QC): 6 Additional Goals: 1-Demonstrate ADL Tasks, 2-Verbalize Understanding, 3- ImproveStrength/[place] 1=Demonstrate adherence to instructed precautions during ADL tasks. 2=Patient will verbalize/demonstrate understanding of assistive devices/modifications for ADL. 3=Patient will improve strength/tolerance for activity to enable patient to perform ADL's. OT Education/Plan Problem List/Assessment Assessment: Decreased Activ Tolerance, Decreased UE Strength, Impaired Funct Balance, Impaired I ADL's, Impaired Self-Care Skills Discharge Recommendations Plan/Recommendations: Continue POC Treatment Plan/Plan of Care Treatment,Training & Education: Yes Patient would benefit from OT for education, treatment and training to promote independence in ADL's, mobility, safety and/or upper extremity function for ADL's. Plan of Care: ADL Retraining, Caregiver Training, Concurrent Therapy, Function al Mobility, Group Exercise/Act as Ind, UE Funct Exercise/Act, W/C Management Training Treatment Duration: Jul 11, 2019 Frequency: At least 5 of 7 days/Wk (IRF) Estimated Hrs Per Day: 1.5 hours per day Agreement: Yes Rehab Potential: Fair Time/GCodes Start Time: 11:00 Stop Time: 12:00 Total Time Billed (hr/min): 60 Billed Treatment Time 1, ADL x2 (30), EX x2 (30)= 60 CHRYSTAL HOPE OTR Jun 28, 2019 12:07 POS
--- NOTE | 2019-06-28 13:56 | NUR ---
Initial visit: Introduced self while pt was in therapy. She is Orthodox and shared the medical history that led her to need physical therapy. She said that Fr. Miller from [facility] anointed her prior to her stomach surgery. She welcomed torpedo man support and expressed that her personal mayur is a source of comfort and strength.
--- NOTE | 2019-06-28 15:10 | NUR ---
RD ASSESSMENT PMHx: HTN; hypothyroidism; duodenal perforation PT INTERACTION: Pt was awake and pleasant during nutrition assessment. Pt states current appetite is not good, and has been this way for the past month. Pt states following a regular diet at home, and currently has no issues with chewing/swallowing food at this time. Pt states no recent issues with n/v at this time. Pt states some recent issues with constipation. Note pt has colostomy. Pt states some recent wt changes, but did not elaborate as to amount or timeframe. Note unable to determine recent wt hx, per chart review. ABNORMAL NUTRITION-RELATED LAB VALUES: BUN 39 (H); cr 1.46 (H); Alkphos 147 (H); Pro 5.6 (L); alb 3.1 (L) Est. kcal needs: 5453-5803 kcal (15-20 kcal/kg) Est. Pro needs: 94-113 g Pro (1.0-1.2 g Pro/kg) PES STATEMENT: Inadequate oral intake (NI-2.1) related to loss of appetite as evidenced by pt interview INTERVENTION: Continue with current diet order of Regular diet. Encouraged pt to eat when able. Pt may benefit from nutrition supplementation if poor PO intake continues. MONITOR/EVALUATE: PO Intake; Plan of Care; Hydration Status; Weight Status; Lab Values Phyllis Johnson, MS, RD, LD Ext. 133
--- NOTE | 2019-06-28 15:11 | Therapy Group Daily Note ---
Therapy Daily Group Note Patient Education Topic Home Safety, Other List Below (handwashing) Exercises LE Seated Exercise, UE Exercise Session Ratio (pt:therapist): 7:2 Goal of Session: Home Safety Strategies, UE/LE Strengthing Goal Met for this Session: Yes Pt Benefit of Group: Contributions to Others, F/U Use of Strategies @Home, Increased Functional Safety, Increased Functional Strength, Improved Cognition, Recognition of Peers, Socialization Other/Notes Pt transported via w/c to [facility] for OT/PT group. Group consisted of introductions (name, place born, favorite fall food), socialization, UE/LE seated exercises, educational topics of hand washing and home safety. Pt able to introduce self appropriately and actively listened to peers. Pt was able to complete exercises and tolerated well. Pt acknowledge understanding of educational topics by giving own personal strategies and stories pertaining to topic. After therapy, pt lying in bed with call light/phone in reach. All needs met in room. Start Time: 13:00 Stop Time: 14:10 Total Billed Treatment Time: 70 Total Billed Treatment 1-GRP SPENCER PALUMBO Jun 28, 2019 15:11 POS
--- NOTE | 2019-06-28 15:54 | NUR ---
Met with patient to complete initial assessment. 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 Patient has had prolonged hospitalization, beginning on 05/27/19. Prior to hospitalization the patient resided in a gig[place]zj[place]rq[place]woi apartment inside her daughter's home. The patient reported she has 3 steps into the kitchen. Entry into the apartment is ramped. She reported she has been using her FWW for functional mobility since having right VERONICA in March 2019. Patient reported her bathroom is handicapped accessible with grab bars and shower bench. Patient reported primary contacts as her daughter, Josefina Caputo, and her son-in-law, Pasha Caputo; they can be reached at . Patient identified Dr. Cody Gómez as her PCP. She reported using and a mail order pharmacy out of [place] for prescriptions, but can use [place] if needed. Patient confirmed primary insurance as Medicare with as secondary insurance. The purpose of the weekly team conference was discussed with the patient and she verbalized understanding. Discharge goal is to return to her apartment.
[2019-06-28] MEDS: ENOXAPARIN 40 MG/0.4 ML (LOVENOX) SYR SC SCH (17:13)
[2019-06-28 18:53] VITALS: BP 112/50
[2019-06-28] MEDS: SIMvastatin 40 MG (ZOCOR) TAB PO SCH (20:05)
[2019-06-28] MEDS: MELATONIN 3 MG TABLET PO SCH (20:06)
[2019-06-28] MEDS: HYDROcodone/APAP 5 MG/325 MG (LORTAB) TAB PO PRN (20:10)
[2019-06-29 05:51] VITALS: BP 100/66
[2019-06-29] MEDS: PANTOPRAZOLE 40 MG (PROTONIX) TAB PO SCH (05:51)
[2019-06-29] MEDS: LEVOTHYROXINE 50 MCG (LEVOTHROID) TAB PO SCH (05:51)
[2019-06-29] MEDS: ONDANSETRON 4 MG (ZOFRAN) ORAL DISSOLVE TAB PO PRN (08:51)
--- NOTE | 2019-06-29 09:45 | NUR ---
AM meds held at this time per pt request r/t nausea. Zofran given and will cont to monitor. Up in w/c after using commode. Call light in reach. Watching tv. Requires 1 staff assist for transfers and chelsie-care. Drsg C/D/I. colostomy intact.
[2019-06-29] MEDS ORDERED: IRON SUCROSE 200 MG/10 ML (VENOFER) VIAL IV ONE (11:29)
[2019-06-29] MEDS: KCL 20 MEQ TAB (K-DUR) PO SCH (11:38)
[2019-06-29] MEDS: SENNA W/DOCUSATE (SENOKOT S) TABLET PO SCH ×2 (11:38→21:40)
[2019-06-29] MEDS: FUROSEMIDE 40 MG (LASIX) TAB PO SCH (11:38)
[2019-06-29] MEDS: GABAPENTIN 300 MG (NEURONTIN) CAP PO SCH ×3 (11:39→21:40)
[2019-06-29] MEDS: DOCUSATE SODIUM 100 MG (COLACE) CAP PO SCH (11:39)
[2019-06-29] MEDS: lisINopril 10 MG (PRINIVIL) TABLET PO SCH (11:39)
--- NOTE | 2019-06-29 11:50 | PM&R Progress Note ---
Subjective HPI/CC On Admission Date Seen by Provider: Jun 29, 2019 Time Seen by Provider: 11:45 Subjective/Events-last exam Had some nausea after therapy again today so we will start giving a little bit of a snack before pain pills given Set a slower pace of therapy yesterday at 15/7 due to severely weakened state Iron infusions will be started since iron level is very low and her hemoglobin is low at 7.3 Lasix restarted and that is helping her edema Wide Vic wraps will be used to wrap legs to minimize the volume overload into the tissues Colostomy working adequately Appreciate general surgery for decubitus ulcer management and colostomy evaluation 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 with welder fitter of Systems General: Fatigue Cardiovascular: Edema Objective Exam Vital Signs Vital Signs Date Time Temp Pulse Resp B/P (MAP) Pulse Ox O2 Delivery O2 Flow Rate FiO2 06/29/19 09:00 94 Room Air 06/29/19 05:51 37.0 66 16 100/66 (77) Capillary Refill : Less Than 3 Seconds General Appearance: No Apparent Distress, WD/WN, Chronically ill HEENT: PERRL/EOMI, Normal ENT Inspection, Pharynx Normal Neck: Full Range of Motion, Normal Inspection Respiratory: Lungs Clear, Normal Breath Sounds Cardiovascular: Regular Rate, Rhythm Extremity: Normal Capillary Refill, Normal Inspection, Normal Range of Motion (severely weakened), Non Tender, No Calf Tenderness, Pedal Edema Neurologic/Psychiatric: Alert, Oriented x3, No Motor/Sensory Deficits, Normal Mood/Affect, snath handle assembler II-XII Norm as Tested Results/Procedures Lab Patient resulted labs reviewed. FIM Transfers Therapy Code Descriptions/Definitions Functional [place] Measure: 0=Not Assessed/NA 4=Minimal Assistance 1=Total Assistance 5=Supervision or Setup 2=Maximal Assistance 6=Modified [place] 3=Moderate Assistance 7=Complete IndependenceSCALE: Activities may be completed with or without assistive devices. 8-Fjydozmlaa-srzazna completes the activity by him/herself with no assistance from a helper. 5-Set-up or Clean-up Assistance-helper sets up or cleans up; patient completes activity. [place] assists only prior to or following the activity. 4-Supervision or Touching Assistance-helper provides verbal cues and/or touching/steadying and/or contact guard assistance as patient completes activity. Assistance may be provided throughout the activity or intermittently. 3-Partial/Moderate Assistance-helper does LESS THAN HALF the effort. [place] lifts, holds or supports trunk or limbs, but provides less than half the effort. 2-Substantial/Maximal Assistance-helper does MORE THAN HALF the effort. [place] lifts or holds trunk or limbs and provides more than half the effort. 4-Zqhjdaeqq-ixvgls does ALL the effort. Patient does none of the effort to complete the activity. Or, the assistance of 2 or more helpers is required for the patient to complete the activity. If activity was not attempted, code reason: 7-Patient Refused. 9-Not Applicable-not attempted and the patient did not perform the activity before the current illness, exacerbation or injury. 10-Not Attempted due to Environmental Limitations-(lack of equipment, weather restraints, etc.). 88-Not Attempted due to Medical Conditions or Safety Concerns. Transfers (B, C, W/C) (FIM): 3 Roll Left to Right (QC): 2 (maxA) Sit to Lying (QC): 1 (dep) Sit to Stand (QC): 3 Chair/Qcm-sw-Rcufm Xfer(QC): 4 Car Transfer (QC): 88 Gait Training Does the Patient Walk?: Yes Distance: 18, 14, 30 Walk 10 feet (QC): 4 Walk 50 ft with 2 Turns(QC): 88 Walk 150 ft (QC): 88 Walking 10ft/uneven surface-QC: 88 Gait Persons Needed: 1 Gait Assistive Device: FWW Wheelchair Training Does the Pt Use a Wheelchair?: Yes Distance: 50' Wheel 50 ft with 2 turns (QC): 3 (modA) Wheel 150 ft (QC): 9 Type of Wheelchair: Manual Stair Training 1 Step (curb) (QC): 88 4 Steps (QC): 88 12 Steps (QC): 88 Balance Picking up an Object (QC): 88 ADL-Treatment Eating (QC): 6 Oral Hygiene (QC): 6 (completes in w/c in front of sink) Shower/Bathe Self (QC): 2 (Pt completes sponge bath EOB, pt demonstrates fair dynamic sitting balance. Pt requires assist with below knee, chelsie/ bottom, and back. Pt requires cues for thoroughness under arms; pt states weakness in arms, able to reach underneath ) Upper Body Dressing (QC): 3 (Min A EOB) Lower Body Dressing (QC): 1 (TD with LB dressing, pt sit to stand with max-mod A (bed raised for ease), breif placed under pt's bottom. Nursing present during bottom hygiene for skin check- pt has wounds on R bottom and one ~1 in. in between legs on L medial thigh) On/Off Footwear (QC): 1 (TD, unable to reach top of socks) Toileting Hygiene (QC): 4 (CGA in stance) Toilet Transfer (QC): 4 (CGA from EOB to bedside commode, use of FWW) Assessment/Plan Assessment and Plan Assess & Plan/Chief Complaint Assessment: Myopathy with debility Status post anasarca 40 pounds of diuresis at [place] New colostomy status Hypertension Volume overload with edema Severe anemia with iron deficiency ordered iron infusions Nausea with pain medication will start giving snack before meds given Plan: Checked meds and labs Inpatient rehabilitation protocol but is slower pace of 15/7 Monitor nausea Supportive care Food before pain pill IV iron infusions ordered (1) Myopathy (2) HFrEF (heart failure with reduced ejection fraction) Status: Acute (3) Hypothyroid Status: Chronic (4) Acute on chronic kidney failure Status: Acute (5) Diverticulitis of intestine with perforation Status: Acute (6) Acute respiratory failure with hypoxia Status: Acute (7) Atrial fibrillation with RVR Status: Acute (8) Partial small bowel obstruction (9) Hypertension MATT NEWELL DO Jun 29, 2019 11:50 POS
--- NOTE | 2019-06-29 12:39 | Physical Therapy Daily Note ---
PT Daily Note-Current Subjective Pt c/o "I am nauseated" upon my arrival. Pt agreeable to treatment. Pt denied pain. Mental Status Patient Orientation: Person, Place, Situation Transfers SCALE: Activities may be completed with or without assistive devices. 1-Xlceqmtnxm-hjylpwp completes the activity by him/herself with no assistance from a helper. 5-Set-up or Clean-up Assistance-helper sets up or cleans up; patient completes activity. [place] assists only prior to or following the activity. 4-Supervision or Touching Assistance-helper provides verbal cues and/or touching/steadying and/or contact guard assistance as patient completes activity. Assistance may be provided throughout the activity or intermittently. 3-Partial/Moderate Assistance-helper does LESS THAN HALF the effort. [place] lifts, holds or supports trunk or limbs, but provides less than half the effort. 2-Substantial/Maximal Assistance-helper does MORE THAN HALF the effort. [place] lifts or holds trunk or limbs and provides more than half the effort. 3-Vgjsoiqcv-pplahq does ALL the effort. Patient does none of the effort to complete the activity. Or, the assistance of 2 or more helpers is required for the patient to complete the activity. If activity was not attempted, code reason: 7-Patient Refused. 9-Not Applicable-not attempted and the patient did not perform the activity before the current illness, exacerbation or injury. 10-Not Attempted due to Environmental Limitations-(lack of equipment, weather restraints, etc.). 88-Not Attempted due to Medical Conditions or Safety Concerns. Weight Bearing Right Lower Extremity: Right Full Weight Bearing Left Lower Extremity: Left Full Weight Bearing Exercises Seated Therapy Exercises: Ankle pumps, Long arc quads, Hip abd/add Seated Reps: 20 Treatments Pt taken to gym to //bars for gait training. Sit-stand transfers required mod A of 2. Pt amb //bars CGA 2 x 30ft. Pt fatigued each bout. Pt back to room in w/c with call light and all needs met. Assessment Current Status: Good Progress Pt dependent with transfers. Pt does well with ambulation in //bars but fatigues easily. Pt would benefit from continued strengthening, endurance training and balance training. PT Short Term Goals Short Term Goals Time Frame: Jun 29, 2019 Wheelchair Distance: 50' PT Senior Care Goals Senior Care Goals PT Senior Care Goals Time Frame: Jul 19, 2019 Sit to Lying (QC): 5 Lying-Sitting on Side/Bed(QC): 5 Sit to Stand (QC): 5 Roll Left to Right (QC): 5 Chair/Tmb-yb-Kbwoc Xfer(QC): 5 Car Transfer (QC): 5 Does the Patient Walk: Yes Distance: 150' Walk 10 feet (QC): 4 (CGA) Walk 10ft-Uneven Surface(QC): 4 (CGA) Walk 50ft with 2 Turns (QC): 4 (CGA) Gait Assistive Device: FWW Does the Pt use WC or Scooter?: No 1 Step (curb) (QC): 3 ([place]) PT Plan Treatment/Plan Treatment Plan: Continue Plan of Care Treatment Plan: Bed Mobility, Education, Functional Activity [place], Functional Strength, Group Therapy, Gait, Safety, Therapeutic Exercise, Transfers Treatment Duration: Jul 19, 2019 Frequency: At least 5 of 7 days/Wk (IRF) Estimated Hrs Per Day: 1.5 hours per day Patient and/or Family Agrees t: Yes Time/GCodes Time In: 1025 Time Out: 1100 Total Billed Treatment Time: 35 Total Billed Treatment 1, ther ex 20', ther ex 15' PARADISE PIÑA CPTA Jun 29, 2019 12:39 POS
[2019-06-29 17:25] VITALS: BP 117/61
[2019-06-29] MEDS: ENOXAPARIN 40 MG/0.4 ML (LOVENOX) SYR SC SCH (17:36)
[2019-06-29] MEDS: HYDROcodone/APAP 5 MG/325 MG (LORTAB) TAB PO PRN (21:40)
[2019-06-29] MEDS: SIMvastatin 40 MG (ZOCOR) TAB PO SCH (21:40)
[2019-06-29] MEDS: MELATONIN 3 MG TABLET PO SCH (21:40)
--- NOTE | 2019-06-29 22:56 | NUR ---
INFORMED DR. NEWELL THAT PATIENT HAD LORTAB 5MG OVER AN HOUR AGO AND IS STILL COMPLAINING OF LOWER BACK AND LEG PAIN. RECEIVED ORDER TO GIVE AN ADDITIONAL LORTAB 5MG AT THIS TIME. WILL GIVE WITH CRACKERS.
[2019-06-29] MEDS ORDERED: HYDROcodone/APAP 5 MG/325 MG (LORTAB) TAB PO ONE (23:00)
[2019-06-30 05:12] VITALS: BP 146/73
[2019-06-30] MEDS: PANTOPRAZOLE 40 MG (PROTONIX) TAB PO SCH (06:20)
[2019-06-30] MEDS: LEVOTHYROXINE 50 MCG (LEVOTHROID) TAB PO SCH (06:20)
[2019-06-30] MEDS: HYDROcodone/APAP 5 MG/325 MG (LORTAB) TAB PO PRN ×2 (06:20→20:17)
[2019-06-30] MEDS: lisINopril 10 MG (PRINIVIL) TABLET PO SCH (09:33)
[2019-06-30] MEDS: FUROSEMIDE 40 MG (LASIX) TAB PO SCH (09:33)
[2019-06-30] MEDS: GABAPENTIN 300 MG (NEURONTIN) CAP PO SCH ×3 (09:33→20:17)
[2019-06-30] MEDS: SENNA W/DOCUSATE (SENOKOT S) TABLET PO SCH ×2 (09:34→20:17)
[2019-06-30] MEDS: DOCUSATE SODIUM 100 MG (COLACE) CAP PO SCH (09:34)
[2019-06-30] MEDS: KCL 20 MEQ TAB (K-DUR) PO SCH (09:37)
--- NOTE | 2019-06-30 14:04 | PM&R Progress Note ---
Subjective HPI/CC On Admission Date Seen by Provider: Jun 30, 2019 Time Seen by Provider: 13:30 Subjective/Events-last exam No nausea reported today Set a slower pace of therapy Monday at 15/7 due to severely weakened state Iron infusions tolerated since iron level is very low and her hemoglobin is low at 7.3 Lasix restarted and that is helping her edema Wide Vic wraps will be used to wrap legs to minimize the volume overload into the tissues Colostomy working adequately Right leg pain is chronic Appreciate general surgery for decubitus ulcer management and colostomy evaluation 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 with visual arts teacher of Systems General: Fatigue Musculoskeletal: leg pain Objective Exam Vital Signs Vital Signs Date Time Temp Pulse Resp B/P (MAP) Pulse Ox O2 Delivery O2 Flow Rate FiO2 06/30/19 09:00 95 Room Air 06/30/19 05:12 36.4 74 20 146/73 (97) Capillary Refill : Less Than 3 Seconds General Appearance: No Apparent Distress, WD/WN, Chronically ill HEENT: PERRL/EOMI, Normal ENT Inspection, Pharynx Normal Neck: Full Range of Motion, Normal Inspection Respiratory: Lungs Clear, Normal Breath Sounds Cardiovascular: Regular Rate, Rhythm Extremity: Normal Capillary Refill, Normal Inspection, Normal Range of Motion (severely weakened), Non Tender, No Calf Tenderness, Pedal Edema Neurologic/Psychiatric: Alert, Oriented x3, No Motor/Sensory Deficits, Normal Mood/Affect, infectious waste technician II-XII Norm as Tested Results/Procedures Lab Patient resulted labs reviewed. FIM Transfers Therapy Code Descriptions/Definitions Functional [place] Measure: 0=Not Assessed/NA 4=Minimal Assistance 1=Total Assistance 5=Supervision or Setup 2=Maximal Assistance 6=Modified [place] 3=Moderate Assistance 7=Complete IndependenceSCALE: Activities may be completed with or without assistive devices. 9-Mysoxdmvpi-puouynn completes the activity by him/herself with no assistance from a helper. 5-Set-up or Clean-up Assistance-helper sets up or cleans up; patient completes activity. [place] assists only prior to or following the activity. 4-Supervision or Touching Assistance-helper provides verbal cues and/or touching/steadying and/or contact guard assistance as patient completes activity. Assistance may be provided throughout the activity or intermittently. 3-Partial/Moderate Assistance-helper does LESS THAN HALF the effort. [place] lifts, holds or supports trunk or limbs, but provides less than half the effort. 2-Substantial/Maximal Assistance-helper does MORE THAN HALF the effort. [place] lifts or holds trunk or limbs and provides more than half the effort. 1-Xbgrddhfe-saaqin does ALL the effort. Patient does none of the effort to complete the activity. Or, the assistance of 2 or more helpers is required for the patient to complete the activity. If activity was not attempted, code reason: 7-Patient Refused. 9-Not Applicable-not attempted and the patient did not perform the activity before the current illness, exacerbation or injury. 10-Not Attempted due to Environmental Limitations-(lack of equipment, weather restraints, etc.). 88-Not Attempted due to Medical Conditions or Safety Concerns. Transfers (B, C, W/C) (FIM): 3 Roll Left to Right (QC): 2 (maxA) Sit to Lying (QC): 1 (dep) Sit to Stand (QC): 3 Chair/[place] Xfer(QC): 4 Car Transfer (QC): 88 Gait Training Does the Patient Walk?: Yes Distance: 18, 14, 30 Walk 10 feet (QC): 4 Walk 50 ft with 2 Turns(QC): 88 Walk 150 ft (QC): 88 Walking 10ft/uneven surface-QC: 88 Gait Persons Needed: 1 Gait Assistive Device: FWW Wheelchair Training Does the Pt Use a Wheelchair?: Yes Distance: 50' Wheel 50 ft with 2 turns (QC): 3 (modA) Wheel 150 ft (QC): 9 Type of Wheelchair: Manual Stair Training 1 Step (curb) (QC): 88 4 Steps (QC): 88 12 Steps (QC): 88 Balance Picking up an Object (QC): 88 ADL-Treatment Eating (QC): 6 Oral Hygiene (QC): 6 (completes in w/c in front of sink) Shower/Bathe Self (QC): 2 (Pt completes sponge bath EOB, pt demonstrates fair dynamic sitting balance. Pt requires assist with below knee, chelsie/ bottom, and back. Pt requires cues for thoroughness under arms; pt states weakness in arms, able to reach underneath ) Upper Body Dressing (QC): 3 (Min A EOB) Lower Body Dressing (QC): 1 (TD with LB dressing, pt sit to stand with max-mod A (bed raised for ease), breif placed under pt's bottom. Nursing present during bottom hygiene for skin check- pt has wounds on R bottom and one ~1 in. in between legs on L medial thigh) On/Off Footwear (QC): 1 (TD, unable to reach top of socks) Toileting Hygiene (QC): 4 (CGA in stance) Toilet Transfer (QC): 4 (CGA from EOB to bedside commode, use of FWW) Assessment/Plan Assessment and Plan Assess & Plan/Chief Complaint Assessment: Myopathy with debility Status post anasarca 40 pounds of diuresis at [place] New colostomy status Hypertension Volume overload with edema Severe anemia with iron deficiency ordered iron infusions Nausea with pain medication will start giving snack before meds given Plan: Checked meds and labs Inpatient rehabilitation protocol but is slower pace of 11/03 Monitor nausea Supportive care Food before pain pill IV iron infusions ordered (1) Myopathy (2) HFrEF (heart failure with reduced ejection fraction) Status: Acute (3) Hypothyroid Status: Chronic (4) Acute on chronic kidney failure Status: Acute (5) Diverticulitis of intestine with perforation Status: Acute (6) Acute respiratory failure with hypoxia Status: Acute (7) Atrial fibrillation with RVR Status: Acute (8) Partial small bowel obstruction (9) Hypertension MATT NEWELL DO Jun 30, 2019 14:04 POS
--- NOTE | 2019-06-30 15:02 | NUR ---
Colostomy and flange changed today. Pt tolerated well/skin near stoma is reddened. Skin prep done before flange before placement. Pt tolerated well. Incisional wound dressing changed. Insicional wound measured around 5.5 cm deep. Iodoform placed inside wound. Incision very wet with clear/non odorous/but moderate amount. Gauze placed over Iodiform/then [place] dressing placed and dated. Will need to speak with Dr Bello about possible referral for Wound care from Dr Stratton. Also need to speak to [facility] about need for stoma powder underneath of flange but above skin prep. Pt would benefit from frequent monitoring of wetness/drainage in abdominal fold below incision/stoma.
--- NOTE | 2019-06-30 15:29 | Progress Note - Surgery ---
Subjective Time Seen by a Provider: 14:02 Subjective/Events-last exam Pt seen and examined, state she is doing fine. Denies abdominal pain or trouble breathing, states ostomy is working fine. Review of Systems General: No Chills, No Night Sweats Pulmonary: No Dyspnea, No Cough Cardiovascular: No: Chest Pain, Palpitations Gastrointestinal: No: Nausea, Vomiting Objective Exam Vital Signs Date Time Temp Pulse Resp B/P (MAP) Pulse Ox O2 Delivery O2 Flow Rate FiO2 06/30/19 09:00 95 Room Air 06/30/19 05:12 36.4 74 20 146/73 (97) 96 Room Air 06/29/19 21:00 95 Room Air 06/29/19 17:25 37.2 78 18 117/61 (79) 99 Room Air I & O 06/30/19 07:00 Intake Total 840 ml Balance 840 ml Capillary Refill : Less Than 3 Seconds General Appearance: No Apparent Distress, WD/WN HEENT: PERRL/EOMI, Moist Mucous Membranes Respiratory: Lungs Clear, Normal Breath Sounds Cardiovascular: Regular Rate, Rhythm, No Murmur Peripheral Pulses: 2+ Dorsalis Pedis (R), 2+ Left Dors-Pedis (L), 2+ Radial Pulses (R), 2+ Radial Pulses (L) Gastrointestinal: non tender, soft; No distended, No guarding, No tenderness; other (ostomy is pink and functioning, she has small opening at base of previous incision with good granulation tissue) Extremity: Normal Range of Motion (severely weakened), No Calf Tenderness, Pedal Edema Neurologic/Psychiatric: Alert, Oriented x3, Normal Mood/Affect Assessment/Plan Assessment/Plan Assessment/Plan Colostomy Midline surgical wound Colostomy appears to have goo output; had actually gotten under device and was cleaned and replaced to avoid fecal contamination in midline wound. Midline wound has good granulation, continue to pack with iodophor dressing. Maximum medical care. Clinical Quality Measures DVT/VTE Risk/Contraindication: Risk Factor Score Per Nursin RFS Level Per Nursing on Admit: 4+=Very High FARIDA BECK DO Jun 30, 2019 15:29 POS
[2019-06-30] MEDS: ENOXAPARIN 40 MG/0.4 ML (LOVENOX) SYR SC SCH (16:46)
[2019-06-30 17:06] VITALS: BP 147/77
[2019-06-30] MEDS: SIMvastatin 40 MG (ZOCOR) TAB PO SCH (20:17)
[2019-06-30] MEDS: MELATONIN 3 MG TABLET PO SCH (20:17)
[2019-06-30 21:09] VITALS: BP 117/51
[2019-07-01] MEDS: HYDROcodone/APAP 5 MG/325 MG (LORTAB) TAB PO PRN ×4 (02:08→23:32)
--- NOTE | 2019-07-01 02:08 | NUR ---
PATIENT UP MIN ASSIST FROM BED TO STANDING. AMBULATED TO AND FROM BR W/FWW, GAIT BELT FOR SAFETY AND SBA. BSC PLACED OVER TOILET. PATIENT MANEUVERED GOWN AND PERFORMED HYGIENE INDEPENDENTLY. REQ STAFF MOD ASSISTANCE TO LIFT LEGS ONTO BED. PATIENT TOLERATED WELL. SCDS ON. POSITION CHANGE, ICE PACK AND LORTAB GIVEN FOR C/O 7/10 PAIN IN RIGHT HIP. PATIENT WEIGHT SHIFTED Q2 WHILE IN BED. DENIES ANY FURTHER NEEDS OR C/O AT THIS TIME. CONT TO MONITOR.
[2019-07-01 06:15] LABS: BASOPHILS # (AUTO) 0.1 10^3/uL (0.0-0.1); BASOPHILS % (AUTO) 1 % (0-10); EOSINOPHILS # (AUTO) 0.3 10^3/uL (0.0-0.3); EOSINOPHILS % (AUTO) 2 % (0-10); HEMATOCRIT 24 % (35-52); HEMOGLOBIN 7.6 G/DL (11.5-16.0); LYMPHOCYTES # (AUTO) 3.7 X 10^3 (1.0-4.0); LYMPHOCYTES % (AUTO) 33 % (12-44); MEAN CORPUSCULAR HEMOGLOBIN 29 PG (25-34); MEAN CORPUSCULAR HGB CONC 31 G/DL (32-36); MEAN CORPUSCULAR VOLUME 94 FL (80-99); MEAN PLATELET VOLUME 10.8 FL (7.4-10.4); MONOCYTES # (AUTO) 1.1 X 10^3 (0.0-1.0); MONOCYTES % (AUTO) 10 % (0-12); NEUTROPHILS # (AUTO) 6.2 X 10^3 (1.8-7.8); NEUTROPHILS % (AUTO) 55 % (42-75); PLATELET COUNT 336 10^3/uL (130-400); WHITE BLOOD COUNT 11.3 10^3/uL (4.3-11.0)
[2019-07-01 06:31] LABS: ALBUMIN 3.2 GM/DL (3.2-4.5); BILIRUBIN,TOTAL 0.3 MG/DL (0.1-1.0); CALCIUM 9.5 MG/DL (8.5-10.1); CREATININE SERUM 1.6 MG/DL (0.60-1.30); POTASSIUM 4.1 MMOL/L (3.6-5.0); TOTAL PROTEIN 5.7 GM/DL (6.4-8.2)
[2019-07-01] MEDS: PANTOPRAZOLE 40 MG (PROTONIX) TAB PO SCH (06:36)
[2019-07-01] MEDS: LEVOTHYROXINE 50 MCG (LEVOTHROID) TAB PO SCH (06:36)
[2019-07-01 06:45] VITALS: BP 128/80
[2019-07-01] MEDS: GABAPENTIN 300 MG (NEURONTIN) CAP PO SCH ×3 (08:12→20:28)
[2019-07-01] MEDS: IRON SUCROSE 200 MG/10 ML (VENOFER) VIAL IV SCH (08:12)
[2019-07-01] MEDS: DOCUSATE SODIUM 100 MG (COLACE) CAP PO SCH (08:12)
[2019-07-01] MEDS: SENNA W/DOCUSATE (SENOKOT S) TABLET PO SCH ×2 (08:12→20:28)
[2019-07-01] MEDS: KCL 20 MEQ TAB (K-DUR) PO SCH (08:12)
[2019-07-01] MEDS: FUROSEMIDE 40 MG (LASIX) TAB PO SCH (08:12)
[2019-07-01] MEDS: lisINopril 10 MG (PRINIVIL) TABLET PO SCH (08:12)
[2019-07-01] MEDS: ONDANSETRON 4 MG (ZOFRAN) ORAL DISSOLVE TAB PO PRN (08:30)
--- NOTE | 2019-07-01 09:02 | PM&R Progress Note ---
Subjective HPI/CC On Admission Date Seen by Provider: Jul 01, 2019 Time Seen by Provider: 08:30 Subjective/Events-last exam Pre-Albumin very poor at 13.5 Creatinine at 1.6 up from 1.4 Hgb 7.6 on IV iron infusion Dressing will be changed twice daily per Dr. Santos recommendation Right leg pain Dr. Gaytan had originally seen her so will reach out to Dr. Cody Gómez to evaluate what can be done there since he has her records Colostomy placement will be provided by the nursing with more education for the pt to have more confidence in taking care of that. 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 with furnace worker of Systems General: Fatigue Musculoskeletal: leg pain Objective Exam Vital Signs Vital Signs Date Time Temp Pulse Resp B/P (MAP) Pulse Ox O2 Delivery O2 Flow Rate FiO2 07/01/19 16:09 36.8 72 16 125/69 (87) 97 Room Air Capillary Refill : Less Than 3 Seconds General Appearance: No Apparent Distress, WD/WN, Chronically ill HEENT: PERRL/EOMI, Normal ENT Inspection, Pharynx Normal Neck: Full Range of Motion, Normal Inspection, Non Tender, Supple Respiratory: Lungs Clear, Normal Breath Sounds, No Accessory Muscle Use, No Respiratory Distress Cardiovascular: Regular Rate, Rhythm Gastrointestinal: Normal Bowel Sounds, No Organomegaly, No Pulsatile Mass, Non Tender, Soft Back: Normal Inspection, No CVA Tenderness, No Vertebral Tenderness Extremity: Normal Capillary Refill, Normal Inspection, Normal Range of Motion (severely weakened), Non Tender, No Calf Tenderness, Pedal Edema Neurologic/Psychiatric: Alert, Oriented x3, No Motor/Sensory Deficits, Normal Mood/Affect, instantizer operator II-XII Norm as Tested Results/Procedures Lab Laboratory Tests 07/01/19 05:38 Patient resulted labs reviewed. FIM Transfers Therapy Code Descriptions/Definitions Functional [place] Measure: 0=Not Assessed/NA 4=Minimal Assistance 1=Total Assistance 5=Supervision or Setup 2=Maximal Assistance 6=Modified [place] 3=Moderate Assistance 7=Complete IndependenceSCALE: Activities may be completed with or without assistive devices. 5-Rikkebvlvw-homhxcf completes the activity by him/herself with no assistance from a helper. 5-Set-up or Clean-up Assistance-helper sets up or cleans up; patient completes activity. [place] assists only prior to or following the activity. 4-Supervision or Touching Assistance-helper provides verbal cues and/or touching/steadying and/or contact guard assistance as patient completes activity. Assistance may be provided throughout the activity or intermittently. 3-Partial/Moderate Assistance-helper does LESS THAN HALF the effort. [place] lifts, holds or supports trunk or limbs, but provides less than half the effort. 2-Substantial/Maximal Assistance-helper does MORE THAN HALF the effort. [place] lifts or holds trunk or limbs and provides more than half the effort. 9-Tjdpeemxi-tkzsym does ALL the effort. Patient does none of the effort to complete the activity. Or, the assistance of 2 or more helpers is required for the patient to complete the activity. If activity was not attempted, code reason: 7-Patient Refused. 9-Not Applicable-not attempted and the patient did not perform the activity before the current illness, exacerbation or injury. 10-Not Attempted due to Environmental Limitations-(lack of equipment, weather restraints, etc.). 88-Not Attempted due to Medical Conditions or Safety Concerns. Transfers (B, C, W/C) (FIM): 3 Roll Left to Right (QC): 2 (maxA) Sit to Lying (QC): 1 (dep) Sit to Stand (QC): 3 Chair/Vpo-jf-Cvrfe Xfer(QC): 4 Car Transfer (QC): 88 Gait Training Does the Patient Walk?: Yes Distance: 18, 14, 30 Walk 10 feet (QC): 4 Walk 50 ft with 2 Turns(QC): 88 Walk 150 ft (QC): 88 Walking 10ft/uneven surface-QC: 88 Gait Persons Needed: 1 Gait Assistive Device: FWW Wheelchair Training Does the Pt Use a Wheelchair?: Yes Distance: 50' Wheel 50 ft with 2 turns (QC): 3 (modA) Wheel 150 ft (QC): 9 Type of Wheelchair: Manual Stair Training 1 Step (curb) (QC): 88 4 Steps (QC): 88 12 Steps (QC): 88 Balance Picking up an Object (QC): 88 ADL-Treatment Eating (QC): 6 Oral Hygiene (QC): 6 (completes in w/c in front of sink) Shower/Bathe Self (QC): 2 (Pt completes sponge bath EOB, pt demonstrates fair dynamic sitting balance. Pt requires assist with below knee, chelsie/ bottom, and back. Pt requires cues for thoroughness under arms; pt states weakness in arms, able to reach underneath ) Upper Body Dressing (QC): 3 (Min A EOB) Lower Body Dressing (QC): 1 (TD with LB dressing, pt sit to stand with max-mod A (bed raised for ease), breif placed under pt's bottom. Nursing present during bottom hygiene for skin check- pt has wounds on R bottom and one ~1 in. in between legs on L medial thigh) On/Off Footwear (QC): 1 (TD, unable to reach top of socks) Toileting Hygiene (QC): 4 (CGA in stance) Toilet Transfer (QC): 4 (CGA from EOB to bedside commode, use of FWW) Assessment/Plan Assessment and Plan Assess & Plan/Chief Complaint Assessment: Myopathy with debility Status post anasarca 40 pounds of diuresis at [place] New colostomy status Hypertension Volume overload with edema Severe anemia with iron deficiency ordered iron infusions Nausea with pain medication will start giving snack before meds given Sciatica right sided? Plan: Checked meds and labs Inpatient rehabilitation protocol but is slower pace of 11/03 Monitor nausea Supportive care Food before pain pill IV iron infusions ordered PCP to evaluate the right sided sciatica (1) Myopathy (2) HFrEF (heart failure with reduced ejection fraction) Status: Acute (3) Hypothyroid Status: Chronic (4) Acute on chronic kidney failure Status: Acute (5) Diverticulitis of intestine with perforation Status: Acute (6) Acute respiratory failure with hypoxia Status: Acute (7) Atrial fibrillation with RVR Status: Acute (8) Partial small bowel obstruction (9) Hypertension MATT NEWELL DO Jul 01, 2019 09:01 POS
--- NOTE | 2019-07-01 10:27 | Occupational Ther Daily Note ---
OT Current Status-Daily Note Subjective Pt seen in recliner chair, no c/o pain. Pt states she is weak. Pt agreeable to OT tx session. Mental Status/Objective Patient Orientation: Normal For Age ADL-Treatment Therapy Code Descriptions/Definitions Functional [place] Measure: 0=Not Assessed/NA 4=Minimal Assistance 1=Total Assistance 5=Supervision or Setup 2=Maximal Assistance 6=Modified [place] 3=Moderate Assistance 7=Complete IndependenceSCALE: Activities may be completed with or without assistive devices. 8-Rcjqxcajxf-plktjoo completes the activity by him/herself with no assistance from a helper. 5-Set-up or Clean-up Assistance-helper sets up or cleans up; patient completes activity. [place] assists only prior to or following the activity. 4-Supervision or Touching Assistance-helper provides verbal cues and/or touching/steadying and/or contact guard assistance as patient completes activity. Assistance may be provided throughout the activity or intermittently. 3-Partial/Moderate Assistance-helper does LESS THAN HALF the effort. [place] lifts, holds or supports trunk or limbs, but provides less than half the effort. 2-Substantial/Maximal Assistance-helper does MORE THAN HALF the effort. [place] lifts or holds trunk or limbs and provides more than half the effort. 9-Lgrehyjtn-dqmkjb does ALL the effort. Patient does none of the effort to complete the activity. Or, the assistance of 2 or more helpers is required for the patient to complete the activity. If activity was not attempted, code reason: 7-Patient Refused. 9-Not Applicable-not attempted and the patient did not perform the activity before the current illness, exacerbation or injury. 10-Not Attempted due to Environmental Limitations-(lack of equipment, weather restraints, etc.). 88-Not Attempted due to Medical Conditions or Safety Concerns. Eating (QC): 6 Shower/Bathe Self (QC): 3 (Pt CGA in stance. Pt completes all areas excluding below knees, back, and bottom. Pt requires assist x2 for stance post-washing.) Upper Body Dressing (QC): 5 (s/u) Lower Body Dressing (QC): 3 (Pt utilizes government contracts manager to thread pants over BLE with cues. Pt requires assist x2 for stance for pant pull-ups. Pt completes front LB pull up with one hand on FWW, assist with CGA x1 person.) Toileting Hygiene (QC): 3 (Pt able to complete chelsie hygiene; requires assist in stance. Pt stands with assist x2.) Toilet Transfer (QC): 1 (Assist x2 for sit to stand. Multiple cues for hand / foot placement. ) Other Treatment Pt completes ADLs in room, sponge bath in chair. Pt states weakness. Pt educated on exercises to complete in bed as pt states she barely left bed prior date. Pt educated of importance of continued movement and strengthening. Pt return-demo nstrates HEP with mod cues for placement. Pt competes 10 reps per 5 exercises. Pt left in recliner chair, call light in reach, all needs met. Education OT Patient Education: Correct positioning, Exercise program, Home exercise program, Modified ADL techniques, Safety issues, Use of adapted equipment Teaching Recipient: Patient Teaching Methods: Demonstration, Handout, Discussion Response to Teaching: Verbalize Understanding, Return Demonstration, Reinforcement Needed OT Short Term Goals Short Term Goals Upper Body Dressing(FIM): 4 (met) Lower Body Dressing(FIM): 3 (met) Toileting(FIM): 2 (met) Transfers (B,C,W/C) (FIM): 3 (met) Additional Short Term Goals: 1-Demonstrate ADL Tasks, 2-Verbalize Understanding, 3-ImproveStrength/[place] 1=Demonstrate adherence to instructed precautions during ADL tasks. 2=Patient will verbalize/demonstrate understanding of assistive devices/modifications for ADL. 3=Patient will improve strength/tolerance for activity to enable patient to perform ADL's. OT Mcfp Goals Cylinder Block Mechanic Goals Time Frame: Jul 11, 2019 Eating (QC): 6 Oral Hygiene (QC): 6 Shower/Bathe Self (QC): 5 Upper Body Dressing (QC): 6 Lower Body Dressing (QC): 4 On/Off Footwear (QC): 6 Toileting Hygiene (QC): 4 Toilet/Commode Transfer (QC): 6 Additional Goals: 1-Demonstrate ADL Tasks, 2-Verbalize Understanding, 3- ImproveStrength/[place] 1=Demonstrate adherence to instructed precautions during ADL tasks. 2=Patient will verbalize/demonstrate understanding of assistive devices/modifications for ADL. 3=Patient will improve strength/tolerance for activity to enable patient to perform ADL's. OT Education/Plan Problem List/Assessment Assessment: Decreased Activ Tolerance, Decreased UE Strength, Dependent Transfers, Edema, Impaired Funct Balance, Impaired I ADL's, Impaired Self-Care Skills Discharge Recommendations Plan/Recommendations: Continue POC Treatment Plan/Plan of Care Treatment,Training & Education: Yes Patient would benefit from OT for education, treatment and training to promote independence in ADL's, mobility, safety and/or upper extremity function for ADL's. Plan of Care: ADL Retraining, Caregiver Training, Concurrent Therapy, Functional Mobility, Group Exercise/Act as Ind, UE Funct Exercise/Act, W/C Management Training Treatment Duration: Jul 11, 2019 Frequency: At least 5 of 7 days/Wk (IRF) Estimated Hrs Per Day: 1.5 hours per day Agreement: Yes Rehab Potential: Fair Time/GCodes Start Time: 09:15 Stop Time: 10:15 Total Time Billed (hr/min): 60 Billed Treatment Time 1, ADL x3 (45), EX (15)= 60 CHRYSTAL HOPE OTR Jul 01, 2019 10:27 POS
--- NOTE | 2019-07-01 11:58 | Physical Therapy Daily Note ---
PT Daily Note-Current Subjective Pt. states she feels she has made progress but sit to stand and sit to supine is still a challenge. Pt. happy to discover that she can sit to stand with firm cushion under her, and states her family would like to get her a lift recline chair for home. Pain Numeric Pain Scale: 3 Location: Right Location Body Site: Thigh (and leg) Comment: pt. feels she has sciatica R affected Mental Status Patient Orientation: Normal For Age Transfers SCALE: Activities may be completed with or without assistive devices. 6-Vnfzxqwycx-bosionn completes the activity by him/herself with no assistance from a helper. 5-Set-up or Clean-up Assistance-helper sets up or cleans up; patient completes activity. [place] assists only prior to or following the activity. 4-Supervision or Touching Assistance-helper provides verbal cues and/or touching/steadying and/or contact guard assistance as patient completes activity. Assistance may be provided throughout the activity or intermittently. 3-Partial/Moderate Assistance-helper does LESS THAN HALF the effort. [place] lifts, holds or supports trunk or limbs, but provides less than half the effort. 2-Substantial/Maximal Assistance-helper does MORE THAN HALF the effort. [place] lifts or holds trunk or limbs and provides more than half the effort. 1-Xqflgqkme-emujbe does ALL the effort. Patient does none of the effort to complete the activity. Or, the assistance of 2 or more helpers is required for the patient to complete the activity. If activity was not attempted, code reason: 7-Patient Refused. 9-Not Applicable-not attempted and the patient did not perform the activity before the current illness, exacerbation or injury. 10-Not Attempted due to Environmental Limitations-(lack of equipment, weather restraints, etc.). 88-Not Attempted due to Medical Conditions or Safety Concerns. Transfers (B, C, W/C): 4 Sit to Stand (QC): 4 experimented with cushion and height of seat surface as well as technique and wt shift. Initially pt required min to mod assist sit to stand and after instruction and increased height increase pt. TRFd sit to stand x 5 SBA Weight Bearing Right Lower Extremity: Right Full Weight Bearing Left Lower Extremity: Left Full Weight Bearing Gait Training Does the Patient Walk?: Yes Gait: 4 Walk 10 feet (QC): 4 Walk 50 ft with 2 Turns(QC): 4 Gait Persons Needed: 1 Gait Assistive Device: FWW flexed posture, min assist, c/o fatigue with gait after about 70 ft Exercises Seated Therapy Exercises: Ankle pumps, Sit to stand, Long arc quads, Hip flexion, Hip abd/add Seated Reps: 15 Assessment Current Status: Good Progress PT Short Term Goals Short Term Goals Time Frame: Jun 29, 2019 Wheelchair Distance: 50' PT Press Helper Goals Press Helper Goals PT Senior Living Goals Time Frame: Jul 19, 2019 Sit to Lying (QC): 5 Lying-Sitting on Side/Bed(QC): 5 Sit to Stand (QC): 5 Roll Left to Right (QC): 5 Chair/Qie-zm-Vcxed Xfer(QC): 5 Car Transfer (QC): 5 Does the Patient Walk: Yes Distance: 150' Walk 10 feet (QC): 4 (CGA) Walk 10ft-Uneven Surface(QC): 4 (CGA) Walk 50ft with 2 Turns (QC): 4 (CGA) Gait Assistive Device: FWW Does the Pt use WC or Scooter?: No 1 Step (curb) (QC): 3 ([place]) PT Plan Treatment/Plan Treatment Plan: Continue Plan of Care Treatment Plan: Bed Mobility, Education, Functional Activity [place], Functional Strength, Group Therapy, Gait, Safety, Therapeutic Exercise, Transfers Treatment Duration: Jul 19, 2019 Frequency: At least 5 of 7 days/Wk (IRF) Estimated Hrs Per Day: 1.5 hours per day Patient and/or Family Agrees t: Yes Safety Risks/Education Patient Education: Gait Training, Transfer Techniques, Correct Positioning, Disease Process, Safety Issues Teaching Recipient: Patient Teaching Methods: Demonstration, Discussion Response to Teaching: Verbalize Understanding, Return Demonstration, Reinforcement Needed Time/GCodes Time In: 1115 Time Out: 1200 Total Billed Treatment Time: 45 Total Billed Treatment 1,GT15m,FA20m,EX10m DAR CHANEY PIPE BLANKS CUT OFF SAW OPERATOR Jul 01, 2019 11:58 POS
--- NOTE | 2019-07-01 14:51 | Therapy Group Daily Note ---
Therapy Daily Group Note Patient Education Topic Other List Below (pain magment strategies, TRF skills) Exercises LE Seated Exercise Session Ratio (pt:therapist): 4:1 Goal of Session: Home Safety Strategies, Safety with Transfers, Other (list) (understanding pain and the brain, TRF and bedmob skills) Goal Met for this Session: Yes Pt Benefit of Group: F/U Use of Strategies @Home, Increased Functional Safety, Other (bed mopb and TRF skills and educ regarding pain and the brain) Other/Notes Pt. participated in group PT OT session this date. Pt. came and went via ambulation with CGA . Pt. was pleasant and social, sharing her name and her favorite place she has traveled. Education focused on bed mobility , sup to side to sit TRFs, sit to stand TRFs, car TRFs and tub bench TRFs all demonstrated with equipment and explanation. Pts. participated, shared their experiences and asked pertinent questions. Pts participated in group exercises sharing the seated exercises they could recall and demonstrating them for others . Sit to stand was broken down and practiced by each participant. Pain management strategies were discussed as well as information derived from "explain pain" topics. Pt. to room after group, in bed with baker at hand, needs met Start Time: 13:00 Stop Time: 14:15 Total Billed Treatment Time: 75 Total Billed Treatment 1,GRP DAR CHANEY SOLUTION ENGINEER Jul 01, 2019 14:51 POS
--- NOTE | 2019-07-01 15:00 | NUR ---
Spoke with Dr. Gómez's office regarding history and treatment of right leg pain. Patient stated that she had been told that she may have sciatica in that leg. Dr. Gómez's office confirms that patient was diagnosed with Sciatica and that oral steroids had helped in the past.
[2019-07-01 16:09] VITALS: BP 125/69
--- NOTE | 2019-07-01 17:50 | Progress Note - Surgery ---
[facility] 07/01/19 1749: Subjective Date Seen by a Provider: Jul 01, 2019 Time Seen by a Provider: 08:30 Subjective/Events-last exam Pt was alert and oriented and in no acute distress Pt denied pain or abdominal tenderness Wound showed minimal discharge and packing was draining fluids. Pts Hgb has improved from 7.3 to 7.6 Review of Systems General: No Chills Pulmonary: No Dyspnea, No Pleuritic Chest Pain Cardiovascular: No: Chest Pain Gastrointestinal: No: Nausea, Vomiting, Abdominal Pain Objective Exam Vital Signs Date Time Temp Pulse Resp B/P (MAP) Pulse Ox O2 Delivery O2 Flow Rate FiO2 07/01/19 16:09 36.8 72 16 125/69 (87) 97 Room Air 07/01/19 09:00 95 Room Air 07/01/19 06:45 36.2 73 20 128/80 (96) 95 Room Air 06/30/19 21:09 37.4 85 20 117/51 (73) 95 Room Air 06/30/19 19:00 Room Air I & O 07/01/19 07:00 Intake Total 1280 ml Output Total 78 ml Balance 1202 ml Capillary Refill : Less Than 3 Seconds General Appearance: No Apparent Distress, WD/WN, Chronically ill HEENT: PERRL/EOMI, Normal ENT Inspection, Pharynx Normal Neck: Full Range of Motion, Normal Inspection Respiratory: Lungs Clear, Normal Breath Sounds Cardiovascular: Regular Rate, Rhythm Peripheral Pulses: 2+ Dorsalis Pedis (R), 2+ Left Dors-Pedis (L), 2+ Radial Pulses (R), 2+ Radial Pulses (L) Gastrointestinal: non tender, soft; No distended, No guarding, No tenderness; other (ostomy is pink and functioning, she has small opening at base of previous incision with good granulation tissue. Removed current wound packing and replacing with new dressing ) Extremity: Normal Capillary Refill, Normal Inspection, Normal Range of Motion (severely weakened), Non Tender, No Calf Tenderness, Pedal Edema Neurologic/Psychiatric: Alert, Oriented x3, No Motor/Sensory Deficits, Normal Mood/Affect, rn cardiac cath II-XII Norm as Tested Results Lab Laboratory Tests 07/01/19 05:38: White Blood Count 11.3H, Red Blood Count 2.60L, Hemoglobin 7.6L, Hematocrit 24L, Mean Corpuscular Volume 94, Mean Corpuscular Hemoglobin 29, Mean Corpuscular Hemoglobin Concent 31L, Red Cell Distribution Width 15.0H, Platelet Count 336, Mean Platelet Volume 10.8H, Neutrophils (%) (Auto) 55, Lymphocytes (%) (Auto) 33, Monocytes (%) (Auto) 10, Eosinophils (%) (Auto) 2, Basophils (%) (Auto) 1, Neutrophils # (Auto) 6.2, Lymphocytes # (Auto) 3.7, Monocytes # (Auto) 1.1H, Eosinophils # (Auto) 0.3, Basophils # (Auto) 0.1, Sodium Level 141, Potassium Level 4.1, Chloride Level 106, Carbon Dioxide Level 24, Anion Gap 11, Blood Urea Nitrogen 41H, Creatinine 1.60H, Estimat Glomerular Filtration Rate 31, BUN/Creatinine Ratio 26, Glucose Level 97, Calcium Level 9.5, Corrected Calcium 10.1, Total Bilirubin 0.3, Aspartate Amino Transf (AST/SGOT) 13, Alanine Aminotransferase (ALT/SGPT) 15, Alkaline Phosphatase 118, Total Protein 5.7L, Albumin 3.2 Assessment/Plan Assessment/Plan Assessment/Plan Colostomy Midline surgical wound - Colostomy is having good output continue to monitor - Continue to monitor HgB and continue Iron infusion - Continue PT regimen - Continue wound management with irrigation and dressing replacement Clinical Quality Measures DVT/VTE Risk/Contraindication: Risk Factor Score Per Nursin RFS Level Per Nursing on Admit: 4+=Very High MALCOLMTOMMY NUNES Berkley DO 07/01/192028: Subjective Subjective/Events-last exam Patient states she's doing well. No complaints. She states she's participating with rehab activities. Colostomy is functioning. No other complaints. Wound at midline she states is okay, and tolerating wound care. Objective Exam General Appearance: No Apparent Distress, WD/WN HEENT: PERRL/EOMI, Normal ENT Inspection Neck: Normal Inspection Respiratory: Chest Non Tender, No Accessory Muscle Use, No Respiratory Distress Cardiovascular: Regular Rate, Rhythm Gastrointestinal: non tender, soft, other (ostomy is pink and functioning, she has small opening at base of previous incision with good granulation tissue. R emoved current wound packing and replacing with new dressing ) Extremity: Pedal Edema Neurologic/Psychiatric: Alert, Oriented x3 Skin: Normal Color, Warm/Dry Lymphatic: No Adenopathy Assessment/Plan Assessment/Plan Assessment/Plan s/p appendectomy and zachery open wound lower incision continue wound care would change bid and prn colostomy functioning no other concerns will follow prn Supervisory-Addendum Brief Verification & Attestation Participated in pt care: history, MDM, physical Personally performed: exam, history, MDM, supervision of care Care discussed with: Medical Student Procedures: n/a Results interpretation: Verified all documentation Verification and Attestation of Medical Student E/M Service A medical student performed and documented this service in my presence. I reviewed and verified all information documented by the medical student and made modifications to such information, when appropriate. I personally performed the physical exam and medical decision making. Tommy Malcolm, Jul 01, 2019,20:30 [facility] Jul 01, 2019 17:49 TOMMY CHAPARRO DO Jul 01, 2019 20:29 POS
[2019-07-01] MEDS: ENOXAPARIN 40 MG/0.4 ML (LOVENOX) SYR SC SCH (18:08)
[2019-07-01] MEDS: SIMvastatin 40 MG (ZOCOR) TAB PO SCH (20:28)
[2019-07-01] MEDS: MELATONIN 3 MG TABLET PO SCH (20:29)
--- NOTE | 2019-07-01 21:47 | NUR ---
Pt c/o's of pain behind right knee. Area behind knee does not appear reddened or warm to touch. Homans sign is neg. Vic wraps removed from bilat lower legs per pt request. Warm blankets wrapped around leg and Kpad ordered. Dr. Bello notified but no new orders received. Cont to monitor.
[2019-07-02] MEDS: HYDROcodone/APAP 5 MG/325 MG (LORTAB) TAB PO PRN ×3 (04:26→21:30)
[2019-07-02 05:06] VITALS: BP 140/83
[2019-07-02] MEDS: PANTOPRAZOLE 40 MG (PROTONIX) TAB PO SCH (06:06)
[2019-07-02] MEDS: LEVOTHYROXINE 50 MCG (LEVOTHROID) TAB PO SCH (06:07)
--- NOTE | 2019-07-02 07:31 | Progress Note - Surgery ---
[facility] 07/02/19 0730: Subjective Date Seen by a Provider: Jul 02, 2019 Time Seen by a Provider: 07:10 Subjective/Events-last exam Patient was alert and oriented with no acute distress pt is eating and drinking without issue Ambulating and participating in PT Denies abdominal pain, but states she has right thigh pain that has been getting worse. She states when she rubs it, it goes away. Pt is on DVT prophylaxis and she also states that this pain is nothing new except for it progression in pain. 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 The nurse had no concerns with the wound and there was no abnormal discharge or smell coming from the wound. Objective Exam Vital Signs Date Time Temp Pulse Resp B/P (MAP) Pulse Ox O2 Delivery O2 Flow Rate FiO2 07/02/19 05:06 36.2 72 18 140/83 (102) 96 Room Air 07/01/19 20:40 Room Air 07/01/19 16:09 36.8 72 16 125/69 (87) 97 Room Air 07/01/19 09:00 95 Room Air l I & O 07/02/19 07:00 Intake Total 1060 ml Balance 1060 ml Capillary Refill : Less Than 3 Seconds General Appearance: No Apparent Distress, WD/WN, Chronically ill HEENT: PERRL/EOMI, Pharynx Normal Neck: Full Range of Motion, Normal Inspection, Non Tender, Supple Respiratory: Lungs Clear, Normal Breath Sounds, No Accessory Muscle Use, No Respiratory Distress Cardiovascular: Regular Rate, Rhythm Peripheral Pulses: 2+ Dorsalis Pedis (R), 2+ Left Dors-Pedis (L), 2+ Radial Pulses (R), 2+ Radial Pulses (L) Gastrointestinal: non tender, soft, other (Ostomy was pink and a new ostomy bag was placed recently. No discharge visable. Pt showed no abdominal pain and bowel sounds were present. ) Extremity: Normal Capillary Refill, Normal Inspection, Normal Range of Motion (severely weakened), Non Tender, No Calf Tenderness, Pedal Edema Neurologic/Psychiatric: Alert, Oriented x3, Normal Mood/Affect Skin: Normal Color, Warm/Dry Lymphatic: No Adenopathy Assessment/Plan Assessment/Plan Assessment/Plan s/p appendectomy and zachery open wound lower incision - Continue Ambulation and PT as tolerated - Continue ostomy moderating and bag changes as needed - Continue wound care with changes BID with saline rinse - Continue monitoring HgB - Continue to monitor right thigh pain and consider possible U/S. Clinical Quality Measures DVT/VTE Risk/Contraindication: Risk Factor Score Per Nursin RFS Level Per Nursing on Admit: 4+=Very High NAJMA SANTOS DO 07/02/192049: Subjective Subjective/Events-last exam Patient with no new complaints. Stooling through colostomy, but maybe a little thicker than normal. She is having some right sided hip/thigh pain. No other complaints. Continuing wound care and PT. Objective Exam General Appearance: No Apparent Distress HEENT: PERRL/EOMI Neck: Full Range of Motion, Normal Inspection Respiratory: Chest Non Tender, No Accessory Muscle Use, No Respiratory Distress Cardiovascular: Regular Rate, Rhythm Gastrointestinal: non tender, soft, other (Ostomy was pink and a new ostomy bag was placed recently. No discharge visable. Pt showed no abdominal pain and bowel sounds were present. ) Extremity: Non Tender, Pedal Edema Neurologic/Psychiatric: Alert, Oriented x3, Normal Mood/Affect Skin: Normal Color, Warm/Dry Lymphatic: No Adenopathy Assessment/Plan Assessment/Plan Assessment/Plan s/p appendectomy and harrman open wound lower incision stools slightly thicker and is concerned about that will add miralax continue with therapy continue wound care will follow prn Supervisory-Addendum Brief Verification & Attestation Participated in pt care: history, MDM, physical Personally performed: exam, history, MDM, supervision of care Care discussed with: Medical Student Procedures: n/a Results interpretation: Verified all documentation Verification and Attestation of Medical Student E/M Service A medical student performed and documented this service in my presence. I reviewed and verified all information documented by the medical student and made modifications to such information, when appropriate. I personally performed the physical exam and medical decision making. Najma Santos, Jul 02, 2019,20:50 [facility] Jul 02, 2019 07:30 NAJMA CHAPARRO DO Jul 02, 2019 20:50 POS
[2019-07-02] MEDS: GABAPENTIN 300 MG (NEURONTIN) CAP PO SCH ×3 (09:01→21:30)
[2019-07-02] MEDS: DOCUSATE SODIUM 100 MG (COLACE) CAP PO SCH (09:01)
[2019-07-02] MEDS: FUROSEMIDE 40 MG (LASIX) TAB PO SCH (09:01)
[2019-07-02] MEDS: KCL 20 MEQ TAB (K-DUR) PO SCH (09:01)
[2019-07-02] MEDS: SENNA W/DOCUSATE (SENOKOT S) TABLET PO SCH ×2 (09:01→21:30)
[2019-07-02] MEDS: lisINopril 10 MG (PRINIVIL) TABLET PO SCH (09:01)
--- NOTE | 2019-07-02 10:30 | NUR ---
Dr. Gómez's office notified that patient is continuing to experience pain from her Sciatica. No new orders received at this time.
--- NOTE | 2019-07-02 10:56 | Physical Therapy Daily Note ---
PT Daily Note-Current Subjective Pt laying Supine in bed upon arrival. Pt agrees to PT. Pain Numeric Pain Scale: 5-Moderate Pain Location Body Site: Hip Pain Description: Ache Comment: Pt reports Sciatic pain on R side. Mental Status Patient Orientation: Person, Place, Situation Transfers SCALE: Activities may be completed with or without assistive devices. 4-Iwwoootaib-tyhmsvz completes the activity by him/herself with no assistance from a helper. 5-Set-up or Clean-up Assistance-helper sets up or cleans up; patient completes activity. [place] assists only prior to or following the activity. 4-Supervision or Touching Assistance-helper provides verbal cues and/or touching/steadying and/or contact guard assistance as patient completes activity. Assistance may be provided throughout the activity or intermittently. 3-Partial/Moderate Assistance-helper does LESS THAN HALF the effort. [place] lifts, holds or supports trunk or limbs, but provides less than half the effort. 2-Substantial/Maximal Assistance-helper does MORE THAN HALF the effort. [place] lifts or holds trunk or limbs and provides more than half the effort. 5-Jgfqgrdrr-rktapa does ALL the effort. Patient does none of the effort to complete the activity. Or, the assistance of 2 or more helpers is required for the patient to complete the activity. If activity was not attempted, code reason: 7-Patient Refused. 9-Not Applicable-not attempted and the patient did not perform the activity before the current illness, exacerbation or injury. 10-Not Attempted due to Environmental Limitations-(lack of equipment, weather restraints, etc.). 88-Not Attempted due to Medical Conditions or Safety Concerns. Roll Left to Right (QC): 4 Sit to Lying (QC): 4 Sit to Stand (QC): 4 Weight Bearing Right Lower Extremity: Right Full Weight Bearing Left Lower Extremity: Left Full Weight Bearing Gait Training Does the Patient Walk?: Yes Gait: 4 Distance: 150' Walk 10 feet (QC): 4 Walk 50 ft with 2 Turns(QC): 4 Walk 150 ft (QC): 4 Gait Persons Needed: 1 Gait Assistive Device: FWW Exercises Supine Ex: Ankle pumps, Glut sets, Heel Slides, Straight leg raise, Hip abd/add Supine Reps: 15 Seated Therapy Exercises: Ankle pumps, Long arc quads, Hip flexion, Kicking activity, Hamstring Curls Seated Reps: 15 Treatments Pt transfers from bed to standing. Pt ambulates in hallway. Pt completes Supine & Seated Ex before ambulating back to room. Pt uses restroom then returns to recliner to rest. Pt has all needs met, call light in hand. Assessment Current Status: Fair Progress Pt fatigues easily and needs frequent RB. Pt needs encouragement to participate in PT, reports nausea & fatigue. PT Short Term Goals Short Term Goals Time Frame: Jun 29, 2019 Wheelchair Distance: 50' PT Jail Goals Supervisor Of Operations Goals PT Supervisor Of Operations Goals Time Frame: Jul 19, 2019 Sit to Lying (QC): 5 Lying-Sitting on Side/Bed(QC): 5 Sit to Stand (QC): 5 Roll Left to Right (QC): 5 Chair/Xnk-rg-Eiwsb Xfer(QC): 5 Car Transfer (QC): 5 Does the Patient Walk: Yes Distance: 150' Walk 10 feet (QC): 4 (CGA) Walk 10ft-Uneven Surface(QC): 4 (CGA) Walk 50ft with 2 Turns (QC): 4 (CGA) Gait Assistive Device: FWW Does the Pt use WC or Scooter?: No 1 Step (curb) (QC): 3 (Mildred) PT Plan Problem List Problem List: Activity Tolerance, Functional Strength, Safety, Balance, Gait, Transfer Treatment/Plan Treatment Plan: Continue Plan of Care Treatment Plan: Bed Mobility, Education, Functional Activity [place], Functional Strength, Group Therapy, Gait, Safety, Therapeutic Exercise, Transfers Treatment Duration: Jul 19, 2019 Frequency: At least 5 of 7 days/Wk (IRF) Estimated Hrs Per Day: 1.5 hours per day Patient and/or Family Agrees t: Yes Safety Risks/Education Patient Education: Gait Training, Transfer Techniques, Correct Positioning, Safety Issues Teaching Recipient: Patient Teaching Methods: Discussion Response to Teaching: Verbalize Understanding Time/GCodes Time In: 800 Time Out: 900 Total Billed Treatment Time: 60 Total Billed Treatment 1, GT (15m), FA (15m) & EX x2 (30m) CHANDANA VILLALTA ELECTRONIC CONSOLE DISPLAY OPERATOR Jul 02, 2019 10:56 POS
--- NOTE | 2019-07-02 11:12 | NUR ---
Met with patient to discuss discharge planning. Patient states she "is not ready to go home yet." Patient reports she is experiencing sciatica pain radiating to the RLE. Patient states she does not experience the pain during the day, but at night it is severe and is interfering with her sleep. Patient reports she has tried heat with no relief, and she reports she required 3 doses of pain medication last night. Patient reports Dr. Cody Gómez is supposed to come by and discuss the sciatica pain with her. Discussed Dr. Gómez consult with RN. RN has left a message at Dr. Gómez's office regarding consult. RN reports patient has tried heat therapy and various stretches with PT/OT to try to alleviate pain. Will continue to monitor. Continue with plan of care.
--- NOTE | 2019-07-02 11:34 | Occupational Ther Daily Note ---
OT Current Status-Daily Note Subjective Pt sitting in chair, agrees to therapy. ADL-Treatment Pt would like a sponge bath this morning. Doff shirt without assist. Pt doffed lower body clothing with assist using adaptive equipment. Upper body bathing completed with SBA. Pt able to wash bilateral upper legs and chelsie area. Assist for buttocks and bilateral lower legs/feet. Don pullover shirt with set up. Pt attempted to thread LE into Depends and pants using cardiothoracic surgeon, but required assist. Sit to stand with min assist. Pt able to pull Depends up over hips, but requires assist with pants. Don bilateral socks with set up and verbal cues using sock aid. Increased time for bathing and dressing tasks. Pt performed gait to restroom with FWW, slow pace. Stood at sink to brush teeth and comb hair with SBA. Fatigues with activity, requires occasional rest breaks throughout ADL tasks. Therapy Code Descriptions/Definitions Functional [place] Measure: 0=Not Assessed/NA 4=Minimal Assistance 1=Total Assistance 5=Supervision or Setup 2=Maximal Assistance 6=Modified [place] 3=Moderate Assistance 7=Complete IndependenceSCALE: Activities may be completed with or without assistive devices. 5-Zdlxlzmhac-kktbvzx completes the activity by him/herself with no assistance from a helper. 5-Set-up or Clean-up Assistance-helper sets up or cleans up; patient completes activity. [place] assists only prior to or following the activity. 4-Supervision or Touching Assistance-helper provides verbal cues and/or touching/steadying and/or contact guard assistance as patient completes activity. Assistance may be provided throughout the activity or intermittently. 3-Partial/Moderate Assistance-helper does LESS THAN HALF the effort. [place] lifts, holds or supports trunk or limbs, but provides less than half the effort. 2-Substantial/Maximal Assistance-helper does MORE THAN HALF the effort. [place] lifts or holds trunk or limbs and provides more than half the effort. 2-Pkoqdiuno-istgji does ALL the effort. Patient does none of the effort to complete the activity. Or, the assistance of 2 or more helpers is required for the patient to complete the activity. If activity was not attempted, code reason: 7-Patient Refused. 9-Not Applicable-not attempted and the patient did not perform the activity before the current illness, exacerbation or injury. 10-Not Attempted due to Environmental Limitations-(lack of equipment, weather restraints, etc.). 88-Not Attempted due to Medical Conditions or Safety Concerns. Oral Hygiene (QC): 4 Shower/Bathe Self (QC): 3 Upper Body Dressing (QC): 5 Lower Body Dressing (QC): 2 Other Treatment Pt to gym via w/c. Pt complete resistance peg activity with bilateral UE with 1# weights in place to increase strength, activity tolerance, and coordination/manipulation skills. Arm bike x7 minutes to increase overall strength and activity tolerance needed for functional task completion. Pt completed task with minimal resistance and slow pace. Occasional rest breaks taken during activity. Pt performed bilateral UE exercises to increase strength for ADLs and transfers. Pt completed four exercises x10 reps with mild resistance (yellow) theraband. Rest breaks taken between exercises. Cues for proper technique. Pt sitting in chair with needs met after session. Education OT Patient Education: Modified ADL techniques Teaching Recipient: Patient Teaching Methods: Discussion Response to Teaching: Verbalize Understanding OT Short Term Goals Short Term Goals Upper Body Dressing(FIM): 4 (met) Lower Body Dressing(FIM): 3 (met) Toileting(FIM): 2 (met) Transfers (B,C,W/C) (FIM): 3 (met) Additional Short Term Goals: 1-Demonstrate ADL Tasks, 2-Verbalize Understanding, 3-ImproveStrength/[place] 1=Demonstrate adherence to instructed precautions during ADL tasks. 2=Patient will verbalize/demonstrate understanding of assistive devices/modifications for ADL. 3=Patient will improve strength/tolerance for activity to enable patient to perform ADL's. OT Fpc Goals Fpc Goals Time Frame: Jul 11, 2019 Eating (QC): 6 Oral Hygiene (QC): 6 Shower/Bathe Self (QC): 5 Upper Body Dressing (QC): 6 Lower Body Dressing (QC): 4 On/Off Footwear (QC): 6 Toileting Hygiene (QC): 4 Toilet/Commode Transfer (QC): 6 Additional Goals: 1-Demonstrate ADL Tasks, 2-Verbalize Understanding, 3- ImproveStrength/[place] 1=Demonstrate adherence to instructed precautions during ADL tasks. 2=Patient will verbalize/demonstrate understanding of assistive devices/modifications for ADL. 3=Patient will improve strength/tolerance for activity to enable patient to perform ADL's. OT Education/Plan Discharge Recommendations Plan/Recommendations: Continue POC Treatment Plan/Plan of Care Patient would benefit from OT for education, treatment and training to promote independence in ADL's, mobility, safety and/or upper extremity function for ADL's. Plan of Care: ADL Retraining, Caregiver Training, Concurrent Therapy, Functional Mobility, Group Exercise/Act as Ind, UE Funct Exercise/Act, W/C Management Training Treatment Duration: Jul 11, 2019 Frequency: At least 5 of 7 days/Wk (IRF) Estimated Hrs Per Day: 1.5 hours per day Agreement: Yes Rehab Potential: Fair Time/GCodes Start Time: 09:15 Stop Time: 10:45 Total Time Billed (hr/min): 90 Billed Treatment Time 1 visit, ADLx3(50minutes), EXx3(40minutes) DEEPAK COLLINS OT Jul 02, 2019 11:34 POS
--- NOTE | 2019-07-02 12:00 | NUR ---
provided prayer and Communion.
--- NOTE | 2019-07-02 12:02 | PM&R Progress Note ---
Subjective HPI/CC On Admission Date Seen by Provider: Jul 02, 2019 Time Seen by Provider: 07:30 Subjective/Events-last exam Severe right-sided sciatic is an issue. Dr. Gómez will evaluate and see if we can help her in any way we can because that could affect her recovery. Dr. Santos will be addressing the thicker stool, that is causing some impaction in the colostomy bag. K-pad will be maintained for right sided-sciatica pain. Pt is on chronic pain medication regularly. 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 with fireproof door maker of Systems Musculoskeletal: leg pain Objective Exam Vital Signs Vital Signs Date Time Temp Pulse Resp B/P (MAP) Pulse Ox O2 Delivery O2 Flow Rate FiO2 07/02/19 18:20 37.2 78 20 132/79 (96) 99 Room Air Capillary Refill : Less Than 3 Seconds General Appearance: No Apparent Distress, WD/WN, Chronically ill HEENT: PERRL/EOMI, Pharynx Normal Neck: Full Range of Motion, Normal Inspection, Non Tender, Supple Respiratory: Lungs Clear, Normal Breath Sounds, No Accessory Muscle Use, No Respiratory Distress Cardiovascular: Regular Rate, Rhythm Gastrointestinal: Normal Bowel Sounds, No Organomegaly, No Pulsatile Mass, Non Tender, Soft Back: Normal Inspection, No CVA Tenderness, No Vertebral Tenderness Extremity: Normal Capillary Refill, Normal Inspection, Normal Range of Motion (severely weakened), Non Tender, No Calf Tenderness, Pedal Edema Neurologic/Psychiatric: Alert, Oriented x3, Normal Mood/Affect Skin: Normal Color, Warm/Dry Lymphatic: No Adenopathy Results/Procedures Lab Patient resulted labs reviewed. FIM Transfers Therapy Code Descriptions/Definitions Functional [place] Measure: 0=Not Assessed/NA 4=Minimal Assistance 1=Total Assistance 5=Supervision or Setup 2=Maximal Assistance 6=Modified [place] 3=Moderate Assistance 7=Complete IndependenceSCALE: Activities may be completed with or without assistive devices. 2-Yssjajuomb-lqqxarl completes the activity by him/herself with no assistance from a helper. 5-Set-up or Clean-up Assistance-helper sets up or cleans up; patient completes activity. [place] assists only prior to or following the activity. 4-Supervision or Touching Assistance-helper provides verbal cues and/or touching/steadying and/or contact guard assistance as patient completes activity. Assistance may be provided throughout the activity or intermittently. 3-Partial/Moderate Assistance-helper does LESS THAN HALF the effort. [place] lifts, holds or supports trunk or limbs, but provides less than half the effort. 2-Substantial/Maximal Assistance-helper does MORE THAN HALF the effort. [place] lifts or holds trunk or limbs and provides more than half the effort. 2-Vuowsohmk-ninskg does ALL the effort. Patient does none of the effort to complete the activity. Or, the assistance of 2 or more helpers is required for the patient to complete the activity. If activity was not attempted, code reason: 7-Patient Refused. 9-Not Applicable-not attempted and the patient did not perform the activity before the current illness, exacerbation or injury. 10-Not Attempted due to Environmental Limitations-(lack of equipment, weather restraints, etc.). 88-Not Attempted due to Medical Conditions or Safety Concerns. Transfers (B, C, W/C) (FIM): 4 Roll Left to Right (QC): 2 (maxA) Sit to Lying (QC): 1 (dep) Sit to Stand (QC): 4 Chair/Nnn-rp-Ajjpl Xfer(QC): 4 Car Transfer (QC): 88 Gait Training Does the Patient Walk?: Yes Gait (FIM): 4 Distance: 18, 14, 30 Walk 10 feet (QC): 4 Walk 50 ft with 2 Turns(QC): 4 Walk 150 ft (QC): 88 Walking 10ft/uneven surface-QC: 88 Gait Persons Needed: 1 Gait Assistive Device: FWW Wheelchair Training Does the Pt Use a Wheelchair?: Yes Distance: 50' Wheel 50 ft with 2 turns (QC): 3 (modA) Wheel 150 ft (QC): 9 Type of Wheelchair: Manual Stair Training 1 Step (curb) (QC): 88 4 Steps (QC): 88 12 Steps (QC): 88 Balance Picking up an Object (QC): 88 ADL-Treatment Eating (QC): 6 Oral Hygiene (QC): 4 Shower/Bathe Self (QC): 3 Upper Body Dressing (QC): 5 Lower Body Dressing (QC): 2 On/Off Footwear (QC): 1 (TD, unable to reach top of socks) Toileting Hygiene (QC): 3 (Pt able to complete chelsie hygiene; requires assist in stance. Pt stands with assist x2.) Toilet Transfer (QC): 1 (Assist x2 for sit to stand. Multiple cues for hand / f oot placement. ) Assessment/Plan Assessment and Plan Assess & Plan/Chief Complaint Assessment: Myopathy with debility Status post anasarca 40 pounds of diuresis at [place] New colostomy status Hypertension Volume overload with edema Severe anemia with iron deficiency ordered iron infusions Nausea with pain medication will start giving snack before meds given Sciatica right sided? Plan: Checked meds and labs Inpatient rehabilitation protocol but is slower pace of 11/03 Monitor nausea Supportive care Food before pain pill IV iron infusions ordered PCP to evaluate the right sided sciatica (1) Myopathy (2) HFrEF (heart failure with reduced ejection fraction) Status: Acute (3) Hypothyroid Status: Chronic (4) Acute on chronic kidney failure Status: Acute (5) Diverticulitis of intestine with perforation Status: Acute (6) Acute respiratory failure with hypoxia Status: Acute (7) Atrial fibrillation with RVR Status: Acute (8) Partial small bowel obstruction (9) Hypertension MATT NEWELL DO Jul 02, 2019 12:02 POS
[2019-07-02] MEDS: ONDANSETRON 4 MG (ZOFRAN) ORAL DISSOLVE TAB PO PRN (13:22)
--- NOTE | 2019-07-02 14:04 | Physical Therapy Daily Note ---
PT Daily Note-Current Subjective Pt sitting in recliner upon arrival. Pt agrees to PT but reports nausea and fatigue again this afternoon. Pain Numeric Pain Scale: 5-Moderate Pain Location: Right Location Body Site: Hip Pain Description: Ache Mental Status Patient Orientation: Person, Place, Situation Transfers SCALE: Activities may be completed with or without assistive devices. 4-Oggicmjamn-gcjfihv completes the activity by him/herself with no assistance from a helper. 5-Set-up or Clean-up Assistance-helper sets up or cleans up; patient completes activity. [place] assists only prior to or following the activity. 4-Supervision or Touching Assistance-helper provides verbal cues and/or touching/steadying and/or contact guard assistance as patient completes activity. Assistance may be provided throughout the activity or intermittently. 3-Partial/Moderate Assistance-helper does LESS THAN HALF the effort. [place] lifts, holds or supports trunk or limbs, but provides less than half the effort. 2-Substantial/Maximal Assistance-helper does MORE THAN HALF the effort. [place] lifts or holds trunk or limbs and provides more than half the effort. 1-Kchwqfqph-kdqyhx does ALL the effort. Patient does none of the effort to complete the activity. Or, the assistance of 2 or more helpers is required for the patient to complete the activity. If activity was not attempted, code reason: 7-Patient Refused. 9-Not Applicable-not attempted and the patient did not perform the activity before the current illness, exacerbation or injury. 10-Not Attempted due to Environmental Limitations-(lack of equipment, weather restraints, etc.). 88-Not Attempted due to Medical Conditions or Safety Concerns. Weight Bearing Right Lower Extremity: Right Full Weight Bearing Left Lower Extremity: Left Full Weight Bearing Exercises Supine Ex: Ankle pumps, Glut sets, Heel Slides, Straight leg raise, Hip abd/add Supine Reps: 15 Seated Therapy Exercises: Ankle pumps, Long arc quads, Hip flexion, Kicking activity Seated Reps: 15 Treatments Pt completes Supine & Seated Ex at recliner. Pt uses restroom then rests at end of Rx with all needs met, call light in hand. Assessment Current Status: Fair Progress Pt reports nausea & fatigue again in afternoon, Nurse gave medication. Pt needs encouragement to participate. PT Short Term Goals Short Term Goals Time Frame: Jun 29, 2019 Wheelchair Distance: 50' PT Sighter Goals Skilled Nursing Goals PT Skilled Nursing Goals Time Frame: Jul 19, 2019 Sit to Lying (QC): 5 Lying-Sitting on Side/Bed(QC): 5 Sit to Stand (QC): 5 Roll Left to Right (QC): 5 Chair/Kex-mc-Ezfyv Xfer(QC): 5 Car Transfer (QC): 5 Does the Patient Walk: Yes Distance: 150' Walk 10 feet (QC): 4 (CGA) Walk 10ft-Uneven Surface(QC): 4 (CGA) Walk 50ft with 2 Turns (QC): 4 (CGA) Gait Assistive Device: FWW Does the Pt use WC or Scooter?: No 1 Step (curb) (QC): 3 (Mildred) PT Plan Problem List Problem List: Activity Tolerance, Functional Strength, Safety, Balance, Gait, Transfer Treatment/Plan Treatment Plan: Continue Plan of Care Treatment Plan: Bed Mobility, Education, Functional Activity Chuyita, Functional Strength, Group Therapy, Gait, Safety, Therapeutic Exercise, Transfers Treatment Duration: Jul 19, 2019 Frequency: At least 5 of 7 days/Wk (IRF) Estimated Hrs Per Day: 1.5 hours per day Patient and/or Family Agrees t: Yes Safety Risks/Education Patient Education: Gait Training, Transfer Techniques, Issued Written HEP, Safety Issues Teaching Recipient: Patient Teaching Methods: Discussion Response to Teaching: Verbalize Understanding Time/GCodes Time In: 1300 Time Out: 1330 Total Billed Treatment 1, FA (10m) & EX (20m) CHANDANA VILLALTA WATCH GUARD GATE Jul 02, 2019 14:04 POS
--- NOTE | 2019-07-02 17:53 | NUR ---
Patient's colostomy seal broke twice today. Wound Care nurse was consulted and assisted in re-application both times. Will monitor closely.
[2019-07-02] MEDS: ENOXAPARIN 40 MG/0.4 ML (LOVENOX) SYR SC SCH (17:59)
[2019-07-02 18:20] VITALS: BP 132/79
[2019-07-02] MEDS ORDERED: POLYETHYLENE GLYCOL 17 GM (MIRALAX) PACK PO PRN (21:00)
[2019-07-02] MEDS: MELATONIN 3 MG TABLET PO SCH (21:30)
[2019-07-02] MEDS: SIMvastatin 40 MG (ZOCOR) TAB PO SCH (21:31)
[2019-07-03] MEDS: PANTOPRAZOLE 40 MG (PROTONIX) TAB PO SCH (05:24)
[2019-07-03] MEDS: LEVOTHYROXINE 50 MCG (LEVOTHROID) TAB PO SCH (05:24)
[2019-07-03 06:00] VITALS: BP 100/62
--- NOTE | 2019-07-03 07:41 | Progress Note - Surgery ---
[facility] 07/03/19 0741: Subjective Date Seen by a Provider: Jul 03, 2019 Time Seen by a Provider: 07:25 Subjective/Events-last exam Pt is alert and oriented and in no acute distress Pt has no pain today Pt has been urinating and having discharge through colostomy bag without issue Spoke to the nurse and she stated output from colostomy bag has been better and not as thick. Also stated abdominal wound packing has not been a concern with no abnormalities in discharge or smell. Wound dressing showed minor breakthrough discharge, skin is intact and no erythema to the surrounding areas. Patient does not have any concerns at this moments Objective Exam Vital Signs Date Time Temp Pulse Resp B/P (MAP) Pulse Ox O2 Delivery O2 Flow Rate FiO2 07/03/19 06:00 36.7 65 18 100/62 (75) 94 Room Air 07/02/19 20:30 Room Air 07/02/19 18:20 37.2 78 20 132/79 (96) 99 Room Air 07/02/19 09:45 95 Room Air I & O 07/03/19 07:00 Intake Total 700 ml Balance 700 ml Capillary Refill : Less Than 3 Seconds General Appearance: No Apparent Distress, WD/WN HEENT: PERRL/EOMI Neck: Full Range of Motion, Normal Inspection Respiratory: Chest Non Tender, Lungs Clear, No Accessory Muscle Use, No Respiratory Distress Cardiovascular: Regular Rate, Rhythm Peripheral Pulses: 2+ Dorsalis Pedis (R), 2+ Left Dors-Pedis (L), 2+ Radial Pulses (R), 2+ Radial Pulses (L) Gastrointestinal: non tender, soft, other (Ostomy was pink and a new ostomy bag was placed recently. No discharge visable. Pt had no abdominal tenderness. ) Extremity: Non Tender, Pedal Edema Neurologic/Psychiatric: Alert, Oriented x3, Normal Mood/Affect Skin: Normal Color, Warm/Dry Lymphatic: No Adenopathy Assessment/Plan Assessment/Plan Assessment/Plan s/p appendectomy and harrman open wound lower incision - stools have thinned out, will continue on miralax as needed. - continue with therapy - Monitor colostomy bag to make sure the bag is fully extended and not folded beneath tight clothing. - Continue with wound care Clinical Quality Measures DVT/VTE Risk/Contraindication: Risk Factor Score Per Nursin RFS Level Per Nursing on Admit: 4+=Very High NAJMA MALCOLM DO 07/03/19 8574: Subjective Subjective/Events-last exam stooling through colostomy improved. no new complaints. continuing wound care without any concerns. denies n/v fever sweats chills shortness of breath or chest pain at this time. Objective Exam General Appearance: No Apparent Distress, WD/WN HEENT: PERRL/EOMI Neck: Full Range of Motion, Normal Inspection Respiratory: Chest Non Tender, No Accessory Muscle Use, No Respiratory Distress Cardiovascular: Regular Rate, Rhythm Gastrointestinal: non tender, soft, other (colostomy was pink and a new ostomy bag was placed recently. Midline wound clean no purulent draiage no surroundning erythema. Pt had no abdominal tenderness. ) Extremity: Non Tender, Pedal Edema Neurologic/Psychiatric: Alert, Oriented x3, Normal Mood/Affect Skin: Normal Color, Warm/Dry Lymphatic: No Adenopathy Assessment/Plan Assessment/Plan Assessment/Plan s/p appendectomy and Barker procdure open wound lower incision doing well, no changes to current plan call if needed. will follow prn Supervisory-Addendum Brief Verification & Attestation Participated in pt care: history Personally performed: exam, history, MDM, supervision of care Care discussed with: Medical Student Procedures: n/a Results interpretation: Verified all documentation Verification and Attestation of Medical Student E/M Service A medical student performed and documented this service in my presence. I reviewed and verified all information documented by the medical student and made modifications to such information, when appropriate. I personally performed the physical exam and medical decision making. Najma Malcolm, Jul 03, 2019,21:54 [facility] Jul 03, 2019 07:41 NAJMA CHAPARRO DO Jul 03, 2019 21:54 POS
[2019-07-03] MEDS: ONDANSETRON 4 MG (ZOFRAN) ORAL DISSOLVE TAB PO PRN (08:18)
--- NOTE | 2019-07-03 08:52 | PM&R Progress Note ---
Subjective HPI/CC On Admission Date Seen by Provider: Jul 03, 2019 Time Seen by Provider: 08:45 Subjective/Events-last exam Dr. Santos will be consulted for nausea Dr. Gómez will be conferred with regarding the sciatica and steroid were started Colostomy education by ostomy nurse is going very slowly Very difficult to see whether she will be motivatedenough to change her colostomy bag and care for herself at home with family 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 with surgical scrub technologist of Systems General: Fatigue Pulmonary: Dyspnea Musculoskeletal: back pain, leg pain Objective Exam Vital Signs Vital Signs Date Time Temp Pulse Resp B/P (MAP) Pulse Ox O2 Delivery O2 Flow Rate FiO2 07/04/19 05:08 36.5 72 16 102/67 (79) 96 Room Air Capillary Refill : Less Than 3 Seconds General Appearance: No Apparent Distress, WD/WN, Chronically ill, Obese HEENT: PERRL/EOMI, Normal ENT Inspection, Pharynx Normal Neck: Full Range of Motion, Normal Inspection, Non Tender, Supple Respiratory: Chest Non Tender, Lungs Clear, No Accessory Muscle Use, No Respiratory Distress Cardiovascular: Regular Rate, Rhythm, No Gallop, No JVD, No Murmur, Normal Peripheral Pulses Gastrointestinal: Normal Bowel Sounds, No Organomegaly, No Pulsatile Mass, Non Tender, Soft Back: Normal Inspection, No CVA Tenderness, No Vertebral Tenderness Extremity: Normal Capillary Refill, Normal Inspection, Normal Range of Motion, Non Tender, No Calf Tenderness, Pedal Edema Neurologic/Psychiatric: Alert, Oriented x3, Normal Mood/Affect, Motor Weakness (generalized legs) Skin: Normal Color, Warm/Dry Lymphatic: No Adenopathy Results/Procedures Lab Patient resulted labs reviewed. FIM Transfers Therapy Code Descriptions/Definitions Functional [place] Measure: 0=Not Assessed/NA 4=Minimal Assistance 1=Total Assistance 5=Supervision or Setup 2=Maximal Assistance 6=Modified [place] 3=Moderate Assistance 7=Complete IndependenceSCALE: Activities may be completed with or without assistive devices. 7-Tnkxnbaayu-enaxbro completes the activity by him/herself with no assistance from a helper. 5-Set-up or Clean-up Assistance-helper sets up or cleans up; patient completes activity. [place] assists only prior to or following the activity. 4-Supervision or Touching Assistance-helper provides verbal cues and/or touc toña/steadying and/or contact guard assistance as patient completes activity. Assistance may be provided throughout the activity or intermittently. 3-Partial/Moderate Assistance-helper does LESS THAN HALF the effort. [place] lifts, holds or supports trunk or limbs, but provides less than half the effort. 2-Substantial/Maximal Assistance-helper does MORE THAN HALF the effort. [place] lifts or holds trunk or limbs and provides more than half the effort. 5-Felqfpdtk-adyewu does ALL the effort. Patient does none of the effort to complete the activity. Or, the assistance of 2 or more helpers is required for the patient to complete the activity. If activity was not attempted, code reason: 7-Patient Refused. 9-Not Applicable-not attempted and the patient did not perform the activity before the current illness, exacerbation or injury. 10-Not Attempted due to Environmental Limitations-(lack of equipment, weather restraints, etc.). 88-Not Attempted due to Medical Conditions or Safety Concerns. Transfers (B, C, W/C) (FIM): 4 Roll Left to Right (QC): 4 Sit to Lying (QC): 4 Sit to Stand (QC): 4 Chair/Rzc-pq-Jchrp Xfer(QC): 4 Car Transfer (QC): 88 Gait Training Does the Patient Walk?: Yes Gait (FIM): 4 Distance: 150' Walk 10 feet (QC): 4 Walk 50 ft with 2 Turns(QC): 4 Walk 150 ft (QC): 4 Walking 10ft/uneven surface-QC: 88 Gait Persons Needed: 1 Gait Assistive Device: FWW Wheelchair Training Does the Pt Use a Wheelchair?: Yes Distance: 50' Wheel 50 ft with 2 turns (QC): 3 (modA) Wheel 150 ft (QC): 9 Type of Wheelchair: Manual Stair Training 1 Step (curb) (QC): 88 4 Steps (QC): 88 12 Steps (QC): 88 Balance Picking up an Object (QC): 88 ADL-Treatment Eating (QC): 6 Oral Hygiene (QC): 4 Shower/Bathe Self (QC): 3 Upper Body Dressing (QC): 5 Lower Body Dressing (QC): 2 On/Off Footwear (QC): 1 (TD, unable to reach top of socks) Toileting Hygiene (QC): 3 (Pt able to complete chelsie hygiene; requires assist in stance. Pt stands with assist x2.) Toilet Transfer (QC): 1 (Assist x2 for sit to stand. Multiple cues for hand / foot placement. ) Assessment/Plan Assessment and Plan Assess & Plan/Chief Complaint Assessment: Myopathy with debility Status post anasarca 40 pounds of diuresis at [facility] New colostomy status Hypertension Volume overload with edema Severe anemia with iron deficiency ordered iron infusions Nausea with pain medication will start giving snack before meds given Sciatica right sided? today improved and placed on steroids per PCP Plan: Checked meds and labs Inpatient rehabilitation protocol but is slower pace of 11/03 Monitor nausea Supportive care Food before pain pill IV iron infusions ordered PCP to evaluate the right sided sciatica (1) Myopathy (2) HFrEF (heart failure with reduced ejection fraction) Status: Acute Qualifiers: Heart failure chronicity: chronic Qualified Codes: I50.22 - Chronic systolic (congestive) heart failure (3) Hypothyroid Status: Chronic (4) Acute on chronic kidney failure Status: Acute (5) Diverticulitis of intestine with perforation Status: Acute (6) Acute respiratory failure with hypoxia Status: Acute (7) Atrial fibrillation with RVR Status: Acute (8) Partial small bowel obstruction (9) Hypertension Qualifiers: Hypertension type: essential hypertension Qualified Codes: I10 - Essential (primary) hypertension MATT NEWELL DO Jul 03, 2019 08:51 POS
--- NOTE | 2019-07-03 08:57 | Physical Therapy Daily Note ---
PT Daily Note-Current Subjective Pt. agrees to Rx, states she is amazed at how much progress she has made but still has so far to go. C/o nausea this morning , nurse alerted and meds given. pt states within a few minutes that meds were very affective Pain Location: No Pain Reported Mental Status Patient Orientation: Normal For Age Transfers SCALE: Activities may be completed with or without assistive devices. 3-Nkvrrzrnpg-ldegyde completes the activity by him/herself with no assistance from a helper. 5-Set-up or Clean-up Assistance-helper sets up or cleans up; patient completes activity. [place] assists only prior to or following the activity. 4-Supervision or Touching Assistance-helper provides verbal cues and/or touching/steadying and/or contact guard assistance as patient completes activity. Assistance may be provided throughout the activity or intermittently. 3-Partial/Moderate Assistance-helper does LESS THAN HALF the effort. [place] lifts, holds or supports trunk or limbs, but provides less than half the effort. 2-Substantial/Maximal Assistance-helper does MORE THAN HALF the effort. [place] lifts or holds trunk or limbs and provides more than half the effort. 6-Hrsdjucuh-llkfec does ALL the effort. Patient does none of the effort to complete the activity. Or, the assistance of 2 or more helpers is required for the patient to complete the activity. If activity was not attempted, code reason: 7-Patient Refused. 9-Not Applicable-not attempted and the patient did not perform the activity before the current illness, exacerbation or injury. 10-Not Attempted due to Environmental Limitations-(lack of equipment, weather restraints, etc.). 88-Not Attempted due to Medical Conditions or Safety Concerns. Transfers (B, C, W/C): 3 Roll Left to Right (QC): 4 Sit to Lying (QC): 3 Sit to Stand (QC): 4 Chair/Mqm-uk-Mytkj Xfer(QC): 4 Weight Bearing Right Lower Extremity: Right Full Weight Bearing Left Lower Extremity: Left Full Weight Bearing Gait Training Does the Patient Walk?: Yes Gait: 4 Walk 10 feet (QC): 4 Walk 50 ft with 2 Turns(QC): 4 Walk 150 ft (QC): 4 Gait Persons Needed: 1 Gait Assistive Device: FWW flexed at trunk, slow, Exercises Supine Ex: Bridging, Ankle pumps, Quad Set, Rolling, Glut sets, Heel Slides, Short Arc Quads, Scooting, Hip abd/add Supine Reps: 15 (x3) Seated Therapy Exercises: Ankle pumps, Sit to stand, Long arc quads Seated Reps: 10 requires assist for right add and rolling as well as heels slides Assessment Current Status: Good Progress slow progress PT Short Term Goals Short Term Goals Time Frame: Jun 29, 2019 Wheelchair Distance: 50' PT [facility] Goals Technical Rep Goals PT Technical Rep Goals Time Frame: Jul 19, 2019 Sit to Lying (QC): 5 Lying-Sitting on Side/Bed(QC): 5 Sit to Stand (QC): 5 Roll Left to Right (QC): 5 Chair/Lcp-jn-Zhumw Xfer(QC): 5 Car Transfer (QC): 5 Does the Patient Walk: Yes Distance: 150' Walk 10 feet (QC): 4 (CGA) Walk 10ft-Uneven Surface(QC): 4 (CGA) Walk 50ft with 2 Turns (QC): 4 (CGA) Gait Assistive Device: FWW Does the Pt use WC or Scooter?: No 1 Step (curb) (QC): 3 (Mildred) PT Plan Treatment/Plan Treatment Plan: Continue Plan of Care Treatment Plan: Bed Mobility, Education, Functional Activity Chuyita, Functional Strength, Group Therapy, Gait, Safety, Therapeutic Exercise, Transfers Treatment Duration: Jul 19, 2019 Frequency: At least 5 of 7 days/Wk (IRF) Estimated Hrs Per Day: 1.5 hours per day Patient and/or Family Agrees t: Yes Safety Risks/Education Patient Education: Gait Training, Transfer Techniques, Correct Positioning, Disease Process, Safety Issues Teaching Recipient: Patient Teaching Methods: Demonstration, Discussion Response to Teaching: Verbalize Understanding, Return Demonstration, Reinforcement Needed Time/GCodes Time In: 800 Time Out: 900 Total Billed Treatment Time: 60 Total Billed Treatment 1,EX20m,GT15m,FA25m ADR CHANEY LATHING SUPERVISOR Jul 03, 2019 08:57 POS
[2019-07-03] MEDS: lisINopril 10 MG (PRINIVIL) TABLET PO SCH (08:58)
[2019-07-03] MEDS: SENNA W/DOCUSATE (SENOKOT S) TABLET PO SCH ×2 (08:58→20:21)
[2019-07-03] MEDS: DOCUSATE SODIUM 100 MG (COLACE) CAP PO SCH (08:58)
[2019-07-03] MEDS: KCL 20 MEQ TAB (K-DUR) PO SCH (08:58)
[2019-07-03] MEDS: GABAPENTIN 300 MG (NEURONTIN) CAP PO SCH ×3 (08:58→20:22)
[2019-07-03] MEDS: HYDROcodone/APAP 5 MG/325 MG (LORTAB) TAB PO PRN ×2 (08:59→19:04)
[2019-07-03] MEDS: FUROSEMIDE 40 MG (LASIX) TAB PO SCH (08:59)
[2019-07-03] MEDS: IRON SUCROSE 200 MG/10 ML (VENOFER) VIAL IV SCH (08:59)
--- NOTE | 2019-07-03 10:23 | Occupational Ther Daily Note ---
OT Current Status-Daily Note Subjective Pt sitting in chair, agrees to therapy. ADL-Treatment Pt declined bathing today, but agrees to dressing. Pt donned pullover shirt with set up. Used ranch hand livestock to thread bilateral LE into pants. Pt stood with min assist for pant hike. Assist to don slip on shoes. Gait to restroom with FWW. Pt brushed teeth, washed face, and combed hair with set up. Therapy Code Descriptions/Definitions Functional [place] Measure: 0=Not Assessed/NA 4=Minimal Assistance 1=Total Assistance 5=Supervision or Setup 2=Maximal Assistance 6=Modified [place] 3=Moderate Assistance 7=Complete IndependenceSCALE: Activities may be completed with or without assistive devices. 4-Jnwxwgpazu-pfnljdp completes the activity by him/herself with no assistance from a helper. 5-Set-up or Clean-up Assistance-helper sets up or cleans up; patient completes activity. [place] assists only prior to or following the activity. 4-Supervision or Touching Assistance-helper provides verbal cues and/or touching/steadying and/or contact guard assistance as patient completes activity. Assistance may be provided throughout the activity or intermittently. 3-Partial/Moderate Assistance-helper does LESS THAN HALF the effort. [place] lif ts, holds or supports trunk or limbs, but provides less than half the effort. 2-Substantial/Maximal Assistance-helper does MORE THAN HALF the effort. [place] lifts or holds trunk or limbs and provides more than half the effort. 8-Fuxtbuuyw-qzfjpm does ALL the effort. Patient does none of the effort to complete the activity. Or, the assistance of 2 or more helpers is required for the patient to complete the activity. If activity was not attempted, code reason: 7-Patient Refused. 9-Not Applicable-not attempted and the patient did not perform the activity before the current illness, exacerbation or injury. 10-Not Attempted due to Environmental Limitations-(lack of equipment, weather restraints, etc.). 88-Not Attempted due to Medical Conditions or Safety Concerns. Oral Hygiene (QC): 5 Upper Body Dressing (QC): 5 Lower Body Dressing (QC): 3 Other Treatment Pt performed gait to therapy gym. Arm bike x10 minutes to increase overall strength and activity tolerance needed for functional task completion. Pt performed task with minimal resistance and slow pace. One rest break taken during activity. Pt performed bilateral UE exercises x10 reps with minimal resistance theraband to increase strength for ADLs and transfers. Pt performed three exercises with rest breaks in between. Pt returned to room, sitting in chair with needs met after session. OT Short Term Goals Short Term Goals Upper Body Dressing(FIM): 4 (met) Lower Body Dressing(FIM): 3 (met) Toileting(FIM): 2 (met) Transfers (B,C,W/C) (FIM): 3 (met) Additional Short Term Goals: 1-Demonstrate ADL Tasks, 2-Verbalize Understanding, 3-ImproveStrength/Chuyita 1=Demonstrate adherence to instructed precautions during ADL tasks. 2=Patient will verbalize/demonstrate understanding of assistive devices/modifications for ADL. 3=Patient will improve strength/tolerance for activity to enable patient to perform ADL's. OT Longterm Goals Longterm Goals Time Frame: Jul 11, 2019 Eating (QC): 6 Oral Hygiene (QC): 6 Shower/Bathe Self (QC): 5 Upper Body Dressing (QC): 6 Lower Body Dressing (QC): 4 On/Off Footwear (QC): 6 Toileting Hygiene (QC): 4 Toilet/Commode Transfer (QC): 6 Additional Goals: 1-Demonstrate ADL Tasks, 2-Verbalize Understanding, 3-Improve Strength/Chuy[place] 1=Demonstrate adherence to instructed precautions during ADL tasks. 2=Patient will verbalize/demonstrate understanding of assistive devices/modifications for ADL. 3=Patient will improve strength/tolerance for activity to enable patient to pe rform ADL's. OT Education/Plan Discharge Recommendations Plan/Recommendations: Continue POC Treatment Plan/Plan of Care Patient would benefit from OT for education, treatment and training to promote independence in ADL's, mobility, safety and/or upper extremity function for ADL's. Plan of Care: ADL Retraining, Caregiver Training, Concurrent Therapy, Functional Mobility, Group Exercise/Act as Ind, UE Funct Exercise/Act, W/C Management Training Treatment Duration: Jul 11, 2019 Frequency: At least 5 of 7 days/Wk (IRF) Estimated Hrs Per Day: 1.5 hours per day Agreement: Yes Rehab Potential: Fair Time/GCodes Start Time: 09:00 Stop Time: 10:00 Total Time Billed (hr/min): 60 Billed Treatment Time 1 visit, ADLx2(30minutes), EXx2(30minutes) DEEPAK COLLINS OT Jul 03, 2019 10:23 POS
--- NOTE | 2019-07-03 11:12 | NUR ---
Spoke with pt in length about ostomy and how to get supplies. Gave pt paper work to request ostomy supplies via [employer] program. Assisted pt with filling out sample request. Reviewed with pt what ostomy is, how to care for it, what chelsie stoma skin should look like, different formulation, and how to request help. Spoke with pt about getting involved with dressing changes.
--- NOTE | 2019-07-03 11:46 | Progress Note ---
Subjective Subjective Date Seen by Provider: Jul 03, 2019 Time Seen by Provider: 11:41 78 year old female admitted to inpatient rehab 06/27/19 from [facility]. 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 She also had a right hip replaced previously but has not completed rehab for it secondary to the above and right sided sciatica pain. Pt reports her right side sciatica is better with the PT/OT but is worse when she initially gets up from sitting or standing for a period of time. -She also notes that the sciatica is not that bad during the day but it does wake her up at night and/or make it difficult to sleep. Review of Systems General: Fatigue Pulmonary: No Dyspnea, No Pleuritic Chest Pain Cardiovascular: No: Chest Pain Gastrointestinal: No: Nausea, Vomiting, Abdominal Pain Musculoskeletal: leg pain Neurological: Weakness Objective Exam Vital Signs Vital Signs Date Time Temp Pulse Resp B/P (MAP) Pulse Ox O2 Delivery O2 Flow Rate FiO2 07/03/19 06:00 36.7 65 18 100/62 (75) 94 Room Air 07/02/19 20:30 Room Air 07/02/19 18:20 37.2 78 20 132/79 (96) 99 Room Air I & O 07/03/19 07:00 Intake Total 700 ml Balance 700 ml General Appearance: No Apparent Distress, WD/WN HEENT: PERRL/EOMI Neck: Full Range of Motion, Normal Inspection Respiratory: Chest Non Tender, Lungs Clear, No Accessory Muscle Use, No Respiratory Distress Cardiovascular: Regular Rate, Rhythm Gastrointestinal: Normal Bowel Sounds, No Pulsatile Mass, Non Tender, Soft Back: Normal Inspection, No CVA Tenderness, No Vertebral Tenderness Extremity: Non Tender, Pedal Edema Neurologic/Psychiatric: Alert, Oriented x3, Normal Mood/Affect Skin: Normal Color, Warm/Dry Lymphatic: No Adenopathy Assessment/Plan Assessment/Plan Assessment and Plan 07/03/19 -acute on chronic kidney disease- holding lisinopril for 2 days- stopped furosemide. Starting bumex 1mg 05/04/19- (may change it to every other day). -Right sciatica- we will do prednisone 50mg x1, 40mg, 30, 20, 10, 5mg taper as a similar schedule gave her good relief for about a month. will follow along with her stay. Appreciate the consult. Problems: (1) Myopathy Assessment & Plan: inpatient rehab (2) HFrEF (heart failure with reduced ejection fraction) Qualifiers: Qualified Codes: I50.22 - Chronic systolic (congestive) heart failure (3) Hypothyroid Assessment & Plan: continue levothyroxine (4) Acute on chronic kidney failure (5) Diverticulitis of intestine with perforation Assessment & Plan: s/p surgery 05/30/19 (6) Hypertension Qualifiers: Qualified Codes: I10 - Essential (primary) hypertension (7) Anemia of chronic disease (8) Iron deficiency anemia Assessment & Plan: iron infusions (9) Right sided sciatica Clinical Quality Measures DVT/VTE Risk/Contraindication: Risk Factor Score Per Nursin RFS Level Per Nursing on Admit: 4+=Very High MADYSON HERMAN MD Jul 03, 2019 11:46 POS
--- NOTE | 2019-07-03 12:00 | NUR ---
provided prayer and Communion.
[2019-07-03] MEDS ORDERED: predniSONE 20 MG TAB PO NR (12:15)
--- NOTE | 2019-07-03 15:13 | Occupational Ther Daily Note ---
OT Current Status-Daily Note Subjective Pt sitting in chair, agrees to therapy ADL-Treatment Therapy Code Descriptions/Definitions Functional [place] Measure: 0=Not Assessed/NA 4=Minimal Assistance 1=Total Assistance 5=Supervision or Setup 2=Maximal Assistance 6=Modified [place] 3=Moderate Assistance 7=Complete IndependenceSCALE: Activities may be completed with or without assistive devices. 0-Wxjlvljznm-vmnjljg completes the activity by him/herself with no assistance from a helper. 5-Set-up or Clean-up Assistance-helper sets up or cleans up; patient completes activity. [place] assists only prior to or following the activity. 4-Supervision or Touching Assistance-helper provides verbal cues and/or touching/steadying and/or contact guard assistance as patient completes activity. Assistance may be provided throughout the activity or intermittently. 3-Partial/Moderate Assistance-helper does LESS THAN HALF the effort. [place] lifts, holds or supports trunk or limbs, but provides less than half the effort. 2-Substantial/Maximal Assistance-helper does MORE THAN HALF the effort. [place] lifts or holds trunk or limbs and provides more than half the effort. 6-Txhjuvrlr-ftazby does ALL the effort. Patient does none of the effort to co mplete the activity. Or, the assistance of 2 or more helpers is required for the patient to complete the activity. If activity was not attempted, code reason: 7-Patient Refused. 9-Not Applicable-not attempted and the patient did not perform the activity before the current illness, exacerbation or injury. 10-Not Attempted due to Environmental Limitations-(lack of equipment, weather restraints, etc.). 88-Not Attempted due to Medical Conditions or Safety Concerns. Other Treatment Pt sit to stand with minimal assistance. Gait to therapy gym with FWW, no LOB noted. Pt completed graded clothespins task with bilateral UE to increase pocket grinder operator/pinch strength for functional tasks. Pt has mild difficulty with highest resistance clothespins, but is able to complete activity without assist. Pt completed fine motor task with nuts and bolts using bilateral UE with 1# weights in place to increase strength, activity tolerance, and coordination/manipulation skills. Pt returned to room, sitting in chair with needs met after session. OT Short Term Goals Short Term Goals Upper Body Dressing(FIM): 4 (met) Lower Body Dressing(FIM): 3 (met) Toileting(FIM): 2 (met) Transfers (B,C,W/C) (FIM): 3 (met) Additional Short Term Goals: 1-Demonstrate ADL Tasks, 2-Verbalize Understanding, 3-ImproveStrength/[place] 1=Demonstrate adherence to instructed precautions during ADL tasks. 2=Patient will verbalize/demonstrate understanding of assistive devices/modifications for ADL. 3=Patient will improve strength/tolerance for activity to enable patient to perform ADL's. OT Hvac Service Manager Goals Alf Goals Time Frame: Jul 11, 2019 Eating (QC): 6 Oral Hygiene (QC): 6 Shower/Bathe Self (QC): 5 Upper Body Dressing (QC): 6 Lower Body Dressing (QC): 4 On/Off Footwear (QC): 6 Toileting Hygiene (QC): 4 Toilet/Commode Transfer (QC): 6 Additional Goals: 1-Demonstrate ADL Tasks, 2-Verbalize Understanding, 3-ImproveStrength/[place] 1=Demonstrate adherence to instructed precautions during ADL tasks. 2=Patient will verbalize/demonstrate understanding of assistive devices/modifications for ADL. 3=Patient will improve strength/tolerance for activity to enable patient to perform ADL's. OT Education/Plan Discharge Recommendations Plan/Recommendations: Continue POC Treatment Plan/Plan of Care Patient would benefit from OT for education, treatment and training to promote independence in ADL's, mobility, safety and/or upper extremity function for ADL's. Plan of Care: ADL Retraining, Caregiver Training, Concurrent Therapy, Functional Mobility, Group Exercise/Act as Ind, UE Funct Exercise/Act, W/C Manag ement Training Treatment Duration: Jul 11, 2019 Frequency: At least 5 of 7 days/Wk (IRF) Estimated Hrs Per Day: 1.5 hours per day Agreement: Yes Rehab Potential: Fair Time/GCodes Start Time: 14:15 Stop Time: 14:45 Total Time Billed (hr/min): 30 Billed Treatment Time 1 visit, EXx2(30minutes) DEEPAK COLLINS OT Jul 03, 2019 15:13 POS
--- NOTE | 2019-07-03 15:18 | Physical Therapy Daily Note ---
PT Daily Note-Current Subjective Patient agrees to PT at this time. Patient reports she is very tired but not having any pain. Pain Numeric Pain Scale: 0-No Pain Location: No Pain Reported Mental Status Patient Orientation: Normal For Age Transfers SCALE: Activities may be completed with or without assistive devices. 9-Xxmmbbnweg-enfyoxn completes the activity by him/herself with no assistance from a helper. 5-Set-up or Clean-up Assistance-helper sets up or cleans up; patient completes activity. [place] assists only prior to or following the activity. 4-Supervision or Touching Assistance-helper provides verbal cues and/or touching/steadying and/or contact guard assistance as patient completes activity. Assistance may be provided throughout the activity or intermittently. 3-Partial/Moderate Assistance-helper does LESS THAN HALF the effort. [place] lifts, holds or supports trunk or limbs, but provides less than half the effort. 2-Substantial/Maximal Assistance-helper does MORE THAN HALF the effort. [place] lifts or holds trunk or limbs and provides more than half the effort. 4-Cbxlaiqyv-uuujup does ALL the effort. Patient does none of the effort to complete the activity. Or, the assistance of 2 or more helpers is required for the patient to complete the activity. If activity was not attempted, code reason: 7-Patient Refused. 9-Not Applicable-not attempted and the patient did not perform the activity before the current illness, exacerbation or injury. 10-Not Attempted due to Environmental Limitations-(lack of equipment, weather restraints, etc.). 88-Not Attempted due to Medical Conditions or Safety Concerns. Sit to Stand (QC): 4 pt. utilizes use of lift recline chair, otherwise sit to stand requires min to mod assist or higher seated surface Weight Bearing Right Lower Extremity: Right Full Weight Bearing Left Lower Extremity: Left Full Weight Bearing Gait Training Does the Patient Walk?: Yes Gait: 4 Distance: 75' Walk 10 feet (QC): 4 Walk 50 ft with 2 Turns(QC): 4 Gait Assistive Device: FWW slow pace, bent over walker Exercises Seated Therapy Exercises: Ankle pumps, Sit to stand, Long arc quads, Hip flexion, Hip abd/add, Glut set Seated Reps: 10 Assessment Patient tolerated seated exercises well. Patient required assistance to perform hip flexion and hip abduction exercises d/t lack of strength. Patient stood from lift chair with minimal assistance and ambulated 75' with FWW and returned to recliner. Patient reminded to reach back for chair with hands before sitting. Patient practiced use of recliner chair to reposition self up in chair. Patient reclined in chair with legs elevated at conclusion of treatment. PT Short Term Goals Short Term Goals Time Frame: Jun 29, 2019 Wheelchair Distance: 50' PT Group Home Goals Group Home Goals PT Mold Capper Goals Time Frame: Jul 19, 2019 Sit to Lying (QC): 5 Lying-Sitting on Side/Bed(QC): 5 Sit to Stand (QC): 5 Roll Left to Right (QC): 5 Chair/Tae-ng-Pdseb Xfer(QC): 5 Car Transfer (QC): 5 Does the Patient Walk: Yes Distance: 150' Walk 10 feet (QC): 4 (CGA) Walk 10ft-Uneven Surface(QC): 4 (CGA) Walk 50ft with 2 Turns (QC): 4 (CGA) Gait Assistive Device: FWW Does the Pt use WC or Scooter?: No 1 Step (curb) (QC): 3 (Mildred) PT Plan Treatment/Plan Treatment Plan: Continue Plan of Care Treatment Plan: Bed Mobility, Education, Functional Activity [place], Functional Strength, Group Therapy, Gait, Safety, Therapeutic Exercise, Transfers Treatment Duration: Jul 19, 2019 Frequency: At least 5 of 7 days/Wk (IRF) Estimated Hrs Per Day: 1.5 hours per day Patient and/or Family Agrees t: Yes Safety Risks/Education Patient Education: Gait Training, Transfer Techniques, Correct Positioning Teaching Recipient: Patient Teaching Methods: Demonstration, Discussion Response to Teaching: Verbalize Understanding, Return Demonstration Time/GCodes Time In: 1450 Time Out: 1320 Total Billed Treatment Time: 30 Total Billed Treatment 1 visit EX 15min GT 15min DAR CHANEY OCCUPATIONAL PHYSICIAN Jul 03, 2019 15:18 POS
--- NOTE | 2019-07-03 15:56 | NUR ---
Weekly Team Conference Discussed weekly team conference with patient. Recommendation is to reevaluate patient next Monday. Patient is agreeable to this plan. Patient reports she is not able to get into or out of bed, and needs to continue to work on getting stronger. Discharge goal continues to be to return home with her daughter. Continue to monitor progress.
[2019-07-03 17:34] VITALS: BP 146/75
[2019-07-03] MEDS: ENOXAPARIN 40 MG/0.4 ML (LOVENOX) SYR SC SCH (17:57)
[2019-07-03] MEDS: SIMvastatin 40 MG (ZOCOR) TAB PO SCH (20:21)
[2019-07-03] MEDS: MELATONIN 3 MG TABLET PO SCH (20:22)
[2019-07-04 05:08] VITALS: BP 102/67
[2019-07-04] MEDS: PANTOPRAZOLE 40 MG (PROTONIX) TAB PO SCH (05:56)
[2019-07-04] MEDS: LEVOTHYROXINE 50 MCG (LEVOTHROID) TAB PO SCH (05:56)
--- NOTE | 2019-07-04 07:02 | Progress Note - Surgery ---
Subjective Date Seen by a Provider: Jul 04, 2019 Time Seen by a Provider: 06:45 Subjective/Events-last exam Pt is alert and oriented and in a pleasant mood with no acute distress. Pt denies pain Eating and drinking without issue Colostomy has great output with good consistency and urinating without issue Wound dressing is clean with no breakthrough and no erythema of surrounding skin. Pt is sleeping through the night Denied the following N/V, F/C, SOB, Chest pain, and abdominal pain Review of Systems General: No Chills Pulmonary: No Dyspnea, No Cough, No Pleuritic Chest Pain Cardiovascular: No: Chest Pain, Palpitations Gastrointestinal: No: Nausea, Vomiting, Abdominal Pain Focused Exam Respiratory: Chest Non Tender, Lungs Clear, Normal Breath Sounds, No Accessory Muscle Use, No Respiratory Distress Cardiovascular: Regular Rate, Rhythm, Normal Peripheral Pulses Peripheral Pulses: 2+ Dorsalis Pedis (R), 2+ Left Dors-Pedis (L), 2+ Radial Pulses (R), 2+ Radial Pulses (L) Skin: normal color, warm/dry Objective Exam Vital Signs Date Time Temp Pulse Resp B/P (MAP) Pulse Ox O2 Delivery O2 Flow Rate FiO2 07/04/19 05:08 36.5 72 16 102/67 (79) 96 Room Air 07/03/19 20:30 Room Air 07/03/19 17:34 37.0 69 20 146/75 (98) 98 Room Air 07/03/19 08:20 Room Air I & O 07/04/19 07:00 Intake Total 1120 ml Balance 1120 ml Capillary Refill : Less Than 3 Seconds General Appearance: No Apparent Distress, WD/WN HEENT: PERRL/EOMI Neck: Full Range of Motion, Normal Inspection Respiratory: Chest Non Tender, No Accessory Muscle Use, No Respiratory Distress Cardiovascular: Regular Rate, Rhythm Peripheral Pulses: 2+ Dorsalis Pedis (R), 2+ Left Dors-Pedis (L), 2+ Radial Pulses (R), 2+ Radial Pulses (L) Gastrointestinal: normal bowel sounds, non tender, soft, no organomegaly; No distended, No guarding, No rebound; other (colostomy was pink and a new ostomy bag was placed recently. Midline wound clean no purulent draiage no surroundning erythema. Pt had no abdominal tenderness. ) Extremity: Non Tender, Pedal Edema Neurologic/Psychiatric: Alert, Oriented x3, Normal Mood/Affect Skin: Normal Color, Warm/Dry Lymphatic: No Adenopathy Assessment/Plan Assessment/Plan Assessment/Plan s/p appendectomy and Barker procdure open wound lower incision - doing well no changes will continue to follow PRN - Continue wound management Clinical Quality Measures DVT/VTE Risk/Contraindication: Risk Factor Score Per Nursin RFS Level Per Nursing on Admit: 4+=Very High FLOWER AGUILAR MED STUD Jul 04, 2019 07:02 POS
[2019-07-04] MEDS: DOCUSATE SODIUM 100 MG (COLACE) CAP PO SCH (08:52)
[2019-07-04] MEDS: SENNA W/DOCUSATE (SENOKOT S) TABLET PO SCH ×2 (08:52→20:13)
[2019-07-04] MEDS: GABAPENTIN 300 MG (NEURONTIN) CAP PO SCH ×3 (08:52→20:13)
[2019-07-04] MEDS: KCL 20 MEQ TAB (K-DUR) PO SCH (08:52)
[2019-07-04] MEDS: HYDROcodone/APAP 5 MG/325 MG (LORTAB) TAB PO PRN ×3 (08:53→20:15)
--- NOTE | 2019-07-04 08:58 | Physical Therapy Daily Note ---
PT Daily Note-Current Subjective pt in recliner pre-tx agrees to PT. Pt reports no pain at this time. Appearance pt in recliner post-tx with call light, room phone, tray table in reach with all needs met at this time. Mental Status Patient Orientation: Person, Place, Time, Situation Transfers SCALE: Activities may be completed with or without assistive devices. 3-Kufjmksssn-prxqtzn completes the activity by him/herself with no assistance from a helper. 5-Set-up or Clean-up Assistance-helper sets up or cleans up; patient completes activity. [place] assists only prior to or following the activity. 4-Supervision or Touching Assistance-helper provides verbal cues and/or touching/steadying and/or contact guard assistance as patient completes activity. Assistance may be provided throughout the activity or intermittently. 3-Partial/Moderate Assistance-helper does LESS THAN HALF the effort. [place] lifts, holds or supports trunk or limbs, but provides less than half the effort. 2-Substantial/Maximal Assistance-helper does MORE THAN HALF the effort. [place] lifts or holds trunk or limbs and provides more than half the effort. 4-Eqqtmzvmj-uhwvqo does ALL the effort. Patient does none of the effort to complete the activity. Or, the assistance of 2 or more helpers is required for the patient to complete the activity. If activity was not attempted, code reason: 7-Patient Refused. 9-Not Applicable-not attempted and the patient did not perform the activity before the current illness, exacerbation or injury. 10-Not Attempted due to Environmental Limitations-(lack of equipment, weather restraints, etc.). 88-Not Attempted due to Medical Conditions or Safety Concerns. Sit to Stand (QC): 3 (Mildred to CGA) pt has difficulty with low surfaces. Pt re-educated on proper positioning for sit to stand with improved reps following. Weight Bearing Right Lower Extremity: Right Full Weight Bearing Left Lower Extremity: Left Full Weight Bearing Gait Training Distance: 150'x2 Walk 10 feet (QC): 4 (SBA) Walk 50 ft with 2 Turns(QC): 4 (SBA) Walk 150 ft (QC): 4 (SBA) Gait Assistive Device: FWW pt demonstrates increased L lateral sway during ambulation. ambulates with normal step through pattern. Exercises Standing: Heel/toe raises, 3 way Ex=Flex, Abd, Ext, Mini squats (on Nustep) Standing Reps: 20 (2set 10 reps) NuStep Minutes: 12 NuStep Workload: 4 Treatments Pt performed functional LE strengthening/endurance training, transfer training, skilled ambulation training, and education this date. Assessment Current Status: Good Progress pt required 3 sit breaks during standing exercises this date. Pt reports Nustep fatigued R UE so she gave it intermittent rest breaks this session. Pt improving ambulation and sit to stand positioning. PT Short Term Goals Short Term Goals Time Frame: Jun 29, 2019 Wheelchair Distance: 50' PT Custodial Goals Account Executive Agribusiness Goals PT Custodial Goals Time Frame: Jul 19, 2019 Sit to Lying (QC): 5 Lying-Sitting on Side/Bed(QC): 5 Sit to Stand (QC): 5 Roll Left to Right (QC): 5 Chair/Dwp-ac-Bxusz Xfer(QC): 5 Car Transfer (QC): 5 Does the Patient Walk: Yes Distance: 150' Walk 10 feet (QC): 4 (CGA) Walk 10ft-Uneven Surface(QC): 4 (CGA) Walk 50ft with 2 Turns (QC): 4 (CGA) Gait Assistive Device: FWW Does the Pt use WC or Scooter?: No 1 Step (curb) (QC): 3 (Mildred) PT Plan Problem List Problem List: Activity Tolerance, Functional Strength, Safety, Balance, Gait, Transfer, Bed Mobility, ROM Treatment/Plan Treatment Plan: Continue Plan of Care Treatment Plan: Bed Mobility, Education, Functional Activity [place], Functional Strength, Group Therapy, Gait, Safety, Therapeutic Exercise, Transfers Treatment Duration: Jul 19, 2019 Frequency: At least 5 of 7 days/Wk (IRF) Estimated Hrs Per Day: 1.5 hours per day Patient and/or Family Agrees t: Yes Safety Risks/Education Patient Education: Gait Training, Transfer Techniques, Correct Positioning, Safety Issues Teaching Recipient: Patient Teaching Methods: Demonstration, Discussion Response to Teaching: Return Demonstration, Reinforcement Needed Time/GCodes Time In: 800 Time Out: 900 Total Billed Treatment Time: 60 Total Billed Treatment 1 visit EX 15' GT 15' FA 30' NORIS CARUSO PT Jul 04, 2019 08:58 POS
[2019-07-04] MEDS ORDERED: BUMETANIDE 1 MG (BUMEX) TAB PO SCH (09:00)
--- NOTE | 2019-07-04 10:07 | PM&R Progress Note ---
Subjective HPI/CC On Admission Date Seen by Provider: Jul 04, 2019 Time Seen by Provider: 08:30 Subjective/Events-last exam Steroids are really helping her sciatica. BM with colostomy functioning well. Colostomy bag is doing better at staying on and not becoming loose. Acute on-chronic pain is an issue. 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 with wire puller of Systems Musculoskeletal: back pain, leg pain Objective Exam Vital Signs Vital Signs Date Time Temp Pulse Resp B/P (MAP) Pulse Ox O2 Delivery O2 Flow Rate FiO2 07/04/19 16:31 36.0 84 16 96/46 (63) 100 Room Air Capillary Refill : Less Than 3 Seconds General Appearance: No Apparent Distress, WD/WN, Chronically ill, Obese HEENT: PERRL/EOMI, Normal ENT Inspection, Pharynx Normal Neck: Full Range of Motion, Normal Inspection, Non Tender, Supple Respiratory: Chest Non Tender, Lungs Clear, No Accessory Muscle Use, No Respiratory Distress Cardiovascular: Regular Rate, Rhythm, No Gallop, No JVD, No Murmur, Normal Peripheral Pulses Gastrointestinal: Normal Bowel Sounds, No Organomegaly, No Pulsatile Mass, Non Tender, Soft Back: Normal Inspection, No CVA Tenderness, No Vertebral Tenderness Extremity: Normal Capillary Refill, Normal Inspection, Normal Range of Motion, Non Tender, No Calf Tenderness, Pedal Edema Neurologic/Psychiatric: Alert, Oriented x3, Normal Mood/Affect, Motor Weakness (generalized legs) Skin: Normal Color, Warm/Dry Lymphatic: No Adenopathy Results/Procedures Lab Laboratory Tests 07/04/19 10:47 Patient resulted labs reviewed. FIM Transfers Therapy Code Descriptions/Definitions Functional [place] Measure: 0=Not Assessed/NA 4=Minimal Assistance 1=Total Assistance 5=Supervision or Setup 2=Maximal Assistance 6=Modified [place] 3=Moderate Assistance 7=Complete IndependenceSCALE: Activities may be completed with or without assistive devices. 4-Bjwvjqhfdo-ajlaqfl completes the activity by him/herself with no assistance from a helper. 5-Set-up or Clean-up Assistance-helper sets up or cleans up; patient completes activity. [place] assists only prior to or following the activity. 4-Supervision or Touching Assistance-helper provides verbal cues and/or touching/steadying and/or contact guard assistance as patient completes activity. Assistance may be provided throughout the activity or intermittently. 3-Partial/Moderate Assistance-helper does LESS THAN HALF the effort. [place] lifts, holds or supports trunk or limbs, but provides less than half the effort. 2-Substantial/Maximal Assistance-helper does MORE THAN HALF the effort. [place] lifts or holds trunk or limbs and provides more than half the effort. 8-Icypyfubz-hwtgez does ALL the effort. Patient does none of the effort to complete the activity. Or, the assistance of 2 or more helpers is required for the patient to complete the activity. If activity was not attempted, code reason: 7-Patient Refused. 9-Not Applicable-not attempted and the patient did not perform the activity before the current illness, exacerbation or injury. 10-Not Attempted due to Environmental Limitations-(lack of equipment, weather restraints, etc.). 88-Not Attempted due to Medical Conditions or Safety Concerns. Transfers (B, C, W/C) (FIM): 3 Roll Left to Right (QC): 4 Sit to Lying (QC): 3 Sit to Stand (QC): 3 (Mildred to CGA) Chair/Koa-em-Otyso Xfer(QC): 4 Car Transfer (QC): 88 Gait Training Does the Patient Walk?: Yes Gait (FIM): 4 Distance: 150'x2 Walk 10 feet (QC): 4 (SBA) Walk 50 ft with 2 Turns(QC): 4 (SBA) Walk 150 ft (QC): 4 (SBA) Walking 10ft/uneven surface-QC: 88 Gait Persons Needed: 1 Gait Assistive Device: FWW Wheelchair Training Does the Pt Use a Wheelchair?: Yes Distance: 50' Wheel 50 ft with 2 turns (QC): 3 (modA) Wheel 150 ft (QC): 9 Type of Wheelchair: Manual Stair Training 1 Step (curb) (QC): 88 4 Steps (QC): 88 12 Steps (QC): 88 Balance Picking up an Object (QC): 88 ADL-Treatment Eating (QC): 6 Oral Hygiene (QC): 5 Shower/Bathe Self (QC): 3 Upper Body Dressing (QC): 5 Lower Body Dressing (QC): 3 On/Off Footwear (QC): 1 (TD, unable to reach top of socks) Toileting Hygiene (QC): 3 (Pt able to complete chelsie hygiene; requires assist in stance. Pt stands with assist x2.) Toilet Transfer (QC): 1 (Assist x2 for sit to stand. Multiple cues for hand / foot placement. ) Assessment/Plan Assessment and Plan Assess & Plan/Chief Complaint Assessment: Myopathy with debility Status post anasarca 40 pounds of diuresis at [place] New colostomy status Hypertension Volume overload with edema Severe anemia with iron deficiency ordered iron infusions Nausea with pain medication will start giving snack before meds given Sciatica right sided? today improved and placed on steroids per PCP Plan: Checked meds and labs Inpatient rehabilitation protocol but is slower pace of 11/03 Monitor nausea Supportive care Food before pain pill IV iron infusions ordered PCP to manage the right sided sciatica (1) Myopathy Assessment & Plan: inpatient rehab (2) HFrEF (heart failure with reduced ejection fraction) Status: Acute Qualifiers: Heart failure chronicity: chronic Qualified Codes: I50.22 - Chronic systolic (congestive) heart failure (3) Hypothyroid Status: Chronic Assessment & Plan: continue levothyroxine (4) Acute on chronic kidney failure Status: Acute (5) Diverticulitis of intestine with perforation Status: Acute Assessment & Plan: s/p surgery 05/30/19 (6) Hypertension Qualifiers: Hypertension type: essential hypertension Qualified Codes: I10 - Essential (primary) hypertension (7) Anemia of chronic disease (8) Iron deficiency anemia Assessment & Plan: iron infusions (9) Right sided sciatica MATT NEWELL DO Jul 04, 2019 10:07 POS
[2019-07-04] MEDS: ONDANSETRON 4 MG (ZOFRAN) ORAL DISSOLVE TAB PO PRN ×2 (10:44→20:13)
[2019-07-04 11:10] LABS: ALBUMIN 3.7 GM/DL (3.2-4.5); CALCIUM 9.7 MG/DL (8.5-10.1); CREATININE SERUM 2.3 MG/DL (0.60-1.30); PHOSPHORUS 3.5 MG/DL (2.3-4.7); POTASSIUM 4.6 MMOL/L (3.6-5.0)
[2019-07-04] MEDS ORDERED: predniSONE 20 MG TAB PO NR (12:15)
[2019-07-04] MEDS ORDERED: LACTATED RINGERS 1,000 ML IV SCH (12:15)
--- NOTE | 2019-07-04 12:45 | Occupational Ther Daily Note ---
OT Current Status-Daily Note Subjective Pt seen in recliner chair, no pain stated. Pt agreeable to OT tx session. Mental Status/Objective Patient Orientation: Normal For Age ADL-Treatment Therapy Code Descriptions/Definitions Functional [place] Measure: 0=Not Assessed/NA 4=Minimal Assistance 1=Total Assistance 5=Supervision or Setup 2=Maximal Assistance 6=Modified [place] 3=Moderate Assistance 7=Complete IndependenceSCALE: Activities may be completed with or without assistive devices. 7-Klwcigigfy-szpfwib completes the activity by him/herself with no assistance from a helper. 5-Set-up or Clean-up Assistance-helper sets up or cleans up; patient completes activity. [place] assists only prior to or following the activity. 4-Supervision or Touching Assistance-helper provides verbal cues and/or touching/steadying and/or contact guard assistance as patient completes activity. Assistance may be provided throughout the activity or intermittently. 3-Partial/Moderate Assistance-helper does LESS THAN HALF the effort. [place] lifts, holds or supports trunk or limbs, but provides less than half the effort. 2-Substantial/Maximal Assistance-helper does MORE THAN HALF the effort. [place] lifts or holds trunk or limbs and provides more than half the effort. 4-Oltdvdwvy-rzqosz does ALL the effort. Patient does none of the effort to c omplete the activity. Or, the assistance of 2 or more helpers is required for the patient to complete the activity. If activity was not attempted, code reason: 7-Patient Refused. 9-Not Applicable-not attempted and the patient did not perform the activity before the current illness, exacerbation or injury. 10-Not Attempted due to Environmental Limitations-(lack of equipment, weather restraints, etc.). 88-Not Attempted due to Medical Conditions or Safety Concerns. Oral Hygiene (QC): 4 (completes with FWW, SBA) Shower/Bathe Self (QC): 4 (s/u for showering items. Pt required LHS for reac toña back and feet with success. SBA in stance.) Upper Body Dressing (QC): 6 Lower Body Dressing (QC): 4 (SBA in stance. Requires min cues for proper laboratory equipment installer use during LB dressing.) Toileting Hygiene (QC): 6 Toilet Transfer (QC): 4 (SBA to commode , use of FWW) QC on/ off footwear: 4 use of dressing stick to doff with cues; use of sock aide with cues. Other Treatment Pt sit to stand with use of electric recliner with CGA, walks to bathroom with SBA; pt completes ADLs in bathroom. Pt c/o itchy back and bottom. Pt given lotio n to utilize on bottom/ back, pt has indentions on posterior thighs where pt's legs were pressing into recliner chair. Pt educated on importance of repositioning throughout day and moving as much as possible, pt agrees. Pt returns to room, sits EOB to complete UE exercises (3 sets of 10 exercises with focus on back, biceps, and triceps). Pt states she would like to continue working on bed mobility and sit to stands and dressing tasks to decrease fatigue and increase success at home. Pt states she has 3 stairs in [place] apartment which she turns walker sideways to complete. Pt cooks own meals in microwave, has to transfer plate ~10 steps to dining room table. Pt states she was not utilizing walker for this task prior to hospitalization but utilizing BU E on plate. Pt states she has not had pain "Through this whole process," but takes pain meds to decrease muscle tension. Pt states she is now "worn out." Pt returns to recliner chair with CGA and cues for pushing up from EOB rather than utilizing FWW to pull up, positioned with legs elevated and call light in reach. All needs met. Education OT Patient Education: Correct positioning, Energy conservation, Exercise program, Home exercise program, Modified ADL techniques, Progress toward Goal/Update tx plan, Purpose of tx/functional activities, Safety issues Teaching Recipient: Patient Teaching Methods: Demonstration, Discussion Response to Teaching: Verbalize Understanding, Return Demonstration OT Short Term Goals Short Term Goals Upper Body Dressing(FIM): 4 (met) Lower Body Dressing(FIM): 3 (met) Toileting(FIM): 2 (met) Transfers (B,C,W/C) (FIM): 3 (met) Additional Short Term Goals: 1-Demonstrate ADL Tasks, 2-Verbalize Understanding, 3-ImproveStrength/[place] 1=Demonstrate adherence to instructed precautions during ADL tasks. 2=Patient will verbalize/demonstrate understanding of assistive devices/modifications for ADL. 3=Patient will improve strength/tolerance for activity to enable patient to perform ADL's. OT Falafel Cart Cook Goals Chcf Goals Time Frame: Jul 11, 2019 Eating (QC): 6 Oral Hygiene (QC): 6 Shower/Bathe Self (QC): 5 Upper Body Dressing (QC): 6 (met) Lower Body Dressing (QC): 4 (met) On/Off Footwear (QC): 6 Toileting Hygiene (QC): 4 (met) Toilet/Commode Transfer (QC): 6 Additional Goals: 1-Demonstrate ADL Tasks, 2-Verbalize Understanding, 3- ImproveStrength/[place] 1=Demonstrate adherence to instructed precautions during ADL tasks. 2=Patient will verbalize/demonstrate understanding of assistive devices/modifications for ADL. 3=Patient will improve strength/tolerance for activity to enable patient to perform ADL's. OT Education/Plan Problem List/Assessment Assessment: Decreased Activ Tolerance, Decreased Safety Aware, Decreased UE Strength, Impaired Bed Mobility, Impaired I ADL's, Impaired Self-Care Skills Discharge Recommendations Plan/Recommendations: Continue POC Equpiment Recommendations-D/C: Overage Shortage And Damage Clerk, Bedside Commode, Dressing Stick, Other, See Comments ([place] florian) Treatment Plan/Plan of Care Treatment,Training & Education: Yes Patient would benefit from OT for education, treatment and training to promote independence in ADL's, mobility, safety and/or upper extremity function for ADL's. Plan of Care: ADL Retraining, Caregiver Training, Concurrent Therapy, Functional Mobility, Group Exercise/Act as Ind, UE Funct Exercise/Act, W/C Management Training Treatment Duration: Jul 11, 2019 Frequency: At least 5 of 7 days/Wk (IRF) Estimated Hrs Per Day: 1.5 hours per day Agreement: Yes Rehab Potential: Fair Time/GCodes Start Time: 11:00 Stop Time: 12:00 Total Time Billed (hr/min): 60 Billed Treatment Time 1, ADL 3(45), EX (15)= 60 CHRYSTAL HOPE OTR Jul 04, 2019 12:45 POS
--- NOTE | 2019-07-04 13:31 | Occupational Ther Daily Note ---
OT Current Status-Daily Note Subjective Pt seen in recliner chair, agreeable to OT tx session, no pain noted. ADL-Treatment Therapy Code Descriptions/Definitions Functional [place] Measure: 0=Not Assessed/NA 4=Minimal Assistance 1=Total Assistance 5=Supervision or Setup 2=Maximal Assistance 6=Modified [place] 3=Moderate Assistance 7=Complete IndependenceSCALE: Activities may be completed with or without assistive devices. 7-Qqsnsqkoni-subzgjz completes the activity by him/herself with no assistance from a helper. 5-Set-up or Clean-up Assistance-helper sets up or cleans up; patient completes activity. [place] assists only prior to or following the activity. 4-Supervision or Touching Assistance-helper provides verbal cues and/or touching/steadying and/or contact guard assistance as patient completes activity. Assistance may be provided throughout the activity or intermittently. 3-Partial/Moderate Assistance-helper does LESS THAN HALF the effort. [place] lifts, holds or supports trunk or limbs, but provides less than half the effort. 2-Substantial/Maximal Assistance-helper does MORE THAN HALF the effort. [place] lifts or holds trunk or limbs and provides more than half the effort. 3-Zvpulsoyq-jpykdi does ALL the effort. Patient does none of the effort to complete the activity. Or, the assistance of 2 or more helpers is required for the patient to complete the activity. If activity was not attempted, code reason: 7-Patient Refused. 9-Not Applicable-not attempted and the patient did not perform the activity before the current illness, exacerbation or injury. 10-Not Attempted due to Environmental Limitations-(lack of equipment, weather restraints, etc.). 88-Not Attempted due to Medical Conditions or Safety Concerns. Eating (QC): 6 Other Treatment Pt completes shower cap in chair, sit to stand with SBA (unable to sit to stand without assist with chair in neutral, able to complete as chair is raised) and utilizes FWW to sink to complete hair brushing with SBA. Pt ambulates with FWW to therapy gym, completes UE/ core exercises EOM with fair+ balance and good fun ctional endurance. Pt educated on importance of UE exercises, completes 5 exercises, 10 reps of 3 sets. Pt requires rest break in between 3 continuous exercises. Pt returns to recliner chair with call light in reach, all needs met, nurse present. Education OT Patient Education: Exercise program, Home exercise program, Modified ADL techniques, Transfer techniques Teaching Recipient: Patient Teaching Methods: Demonstration, Discussion Response to Teaching: Verbalize Understanding, Return Demonstration OT Short Term Goals Short Term Goals Upper Body Dressing(FIM): 4 (met) Lower Body Dressing(FIM): 3 (met) Toileting(FIM): 2 (met) Transfers (B,C,W/C) (FIM): 3 (met) Additional Short Term Goals: 1-Demonstrate ADL Tasks, 2-Verbalize Understanding, 3-ImproveStrength/[place] 1=Demonstrate adherence to instructed precautions during ADL tasks. 2=Patient will verbalize/demonstrate understanding of assistive devices/leonard fications for ADL. 3=Patient will improve strength/tolerance for activity to enable patient to perform ADL's. OT Jail Goals Prior Authorization Technician Goals Time Frame: Jul 11, 2019 Eating (QC): 6 Oral Hygiene (QC): 6 Shower/Bathe Self (QC): 5 Upper Body Dressing (QC): 6 (met) Lower Body Dressing (QC): 4 (met) On/Off Footwear (QC): 6 Toileting Hygiene (QC): 4 (met) Toilet/Commode Transfer (QC): 6 Additional Goals: 1-Demonstrate ADL Tasks, 2-Verbalize Understanding, 3- ImproveStrength/[place] 1=Demonstrate adherence to instructed precautions during ADL tasks. 2=Patient will verbalize/demonstrate understanding of assistive devices/modifications for ADL. 3=Patient will improve strength/tolerance for activity to enable patient to perform ADL's. OT Education/Plan Problem List/Assessment Assessment: Decreased Activ Tolerance, Decreased UE Strength, Impaired I ADL's, Impaired Self-Care Skills Discharge Recommendations Plan/Recommendations: Continue POC Therapy Discharge Recommendati: Intermittent Supervision Treatment Plan/Plan of Care Treatment,Training & Education: Yes Patient would benefit from OT for education, treatment and training to promote independence in ADL's, mobility, safety and/or upper extremity function for ADL's. Plan of Care: ADL Retraining, Caregiver Training, Concurrent Therapy, Functional Mobility, Group Exercise/Act as Ind, UE Funct Exercise/Act, W/C Management Training Treatment Duration: Jul 11, 2019 Frequency: At least 5 of 7 days/Wk (IRF) Estimated Hrs Per Day: 1.5 hours per day Agreement: Yes Rehab Potential: Fair Time/GCodes Start Time: 12:55 Stop Time: 13:25 Total Time Billed (hr/min): 30 Billed Treatment Time 1, EX 2 (30) CHRYSTAL HOPE OTR Jul 04, 2019 13:31 POS
--- NOTE | 2019-07-04 15:01 | Physical Therapy Daily Note ---
PT Daily Note-Current Subjective pt in recliner pre-tx and agrees to PT this afternoon. Pt reports no real pain, just sore and tired. Appearance pt in recliner post-tx with feet elevated. Pt's granddaughter present post-tx. pt with call light, room phone, tray table in reach with all needs met at this time. Mental Status Patient Orientation: Person, Place, Time Attachments: IV Transfers SCALE: Activities may be completed with or without assistive devices. 9-Rlngyhhqrx-ewkoaab completes the activity by him/herself with no assistance from a helper. 5-Set-up or Clean-up Assistance-helper sets up or cleans up; patient completes activity. [place] assists only prior to or following the activity. 4-Supervision or Touching Assistance-helper provides verbal cues and/or touching/steadying and/or contact guard assistance as patient completes activity. Assistance may be provided throughout the activity or intermittently. 3-Partial/Moderate Assistance-helper does LESS THAN HALF the effort. [place] lifts, holds or supports trunk or limbs, but provides less than half the effort. 2-Substantial/Maximal Assistance-helper does MORE THAN HALF the effort. [place] lifts or holds trunk or limbs and provides more than half the effort. 1-Kqgpbrxjf-phceml does ALL the effort. Patient does none of the effort to complete the activity. Or, the assistance of 2 or more helpers is required for the patient to complete the activity. If activity was not attempted, code reason: 7-Patient Refused. 9-Not Applicable-not attempted and the patient did not perform the activity before the current illness, exacerbation or injury. 10-Not Attempted due to Environmental Limitations-(lack of equipment, weather restraints, etc.). 88-Not Attempted due to Medical Conditions or Safety Concerns. Sit to Stand (QC): 3 (Mildred to CGA) Weight Bearing Right Lower Extremity: Right Full Weight Bearing Left Lower Extremity: Left Full Weight Bearing Gait Training Does the Patient Walk?: Yes Distance: 100'X2 Walk 10 feet (QC): 4 (SBA) Walk 50 ft with 2 Turns(QC): 4 (SBA) Gait Assistive Device: FWW Pt walks upright with proper step through pattern. Exercises Standing: Sit to Stand Standing Reps: 20 (4 sets of 5reps) Treatments transfer training, skilled ambulation training, education. Assessment Current Status: Good Progress Pt has difficulty with sit to stand from recliner in her room requiring Mildred for the initial sit to stand and from initial sit to stand of the final set of 5. Pt was CGA with all sit to stands from mat table in PT gym and hamida decreased height in the table with each set down to the lowest height. Pt was able to complete sit to stands from her recliner for the final set with the chair raised 1/4 of its max height with a pillow in the seat. PT Short Term Goals Short Term Goals Time Frame: Jun 29, 2019 Wheelchair Distance: 50' PT Custodial Goals Mud Analysis Well Logging Operator Goals PT Mud Analysis Well Logging Operator Goals Time Frame: Jul 19, 2019 Sit to Lying (QC): 5 Lying-Sitting on Side/Bed(QC): 5 Sit to Stand (QC): 5 Roll Left to Right (QC): 5 Chair/Nlt-fj-Zfvus Xfer(QC): 5 Car Transfer (QC): 5 Does the Patient Walk: Yes Distance: 150' Walk 10 feet (QC): 4 (CGA) Walk 10ft-Uneven Surface(QC): 4 (CGA) Walk 50ft with 2 Turns (QC): 4 (CGA) Gait Assistive Device: FWW Does the Pt use WC or Scooter?: No 1 Step (curb) (QC): 3 (Mildred) PT Plan Problem List Problem List: Activity Tolerance, Functional Strength, Safety, Balance, Gait, Transfer, Bed Mobility, ROM Treatment/Plan Treatment Plan: Continue Plan of Care Treatment Plan: Bed Mobility, Education, Functional Activity [place], Functional Strength, Group Therapy, Gait, Safety, Therapeutic Exercise, Transfers Treatment Duration: Jul 19, 2019 Frequency: At least 5 of 7 days/Wk (IRF) Estimated Hrs Per Day: 1.5 hours per day Patient and/or Family Agrees t: Yes Safety Risks/Education Patient Education: Gait Training, Transfer Techniques, Correct Positioning, Safety Issues Teaching Recipient: Patient Teaching Methods: Demonstration, Discussion Response to Teaching: Return Demonstration, Reinforcement Needed Time/GCodes Time In: 1420 Time Out: 1450 Total Billed Treatment Time: 30 Total Billed Treatment 1 visit FA 30' STEPHANIENORIS RODRIGUEZ PT Jul 04, 2019 15:01 POS
[2019-07-04] MEDS: ENOXAPARIN 30 MG/0.3 ML (LOVENOX) SYR SC SCH (16:00)
[2019-07-04 16:31] VITALS: BP 96/46
[2019-07-04] MEDS: SIMvastatin 40 MG (ZOCOR) TAB PO SCH (20:13)
[2019-07-04] MEDS: MELATONIN 3 MG TABLET PO SCH (20:14)
[2019-07-05] MEDS: LEVOTHYROXINE 50 MCG (LEVOTHROID) TAB PO SCH (05:53)
[2019-07-05] MEDS: PANTOPRAZOLE 40 MG (PROTONIX) TAB PO SCH (05:54)
[2019-07-05 06:25] VITALS: BP 131/77
[2019-07-05 06:51] LABS: ALBUMIN 3.6 GM/DL (3.2-4.5); CALCIUM 9.4 MG/DL (8.5-10.1); CREATININE SERUM 1.99 MG/DL (0.60-1.30); PHOSPHORUS 4.5 MG/DL (2.3-4.7); POTASSIUM 5.1 MMOL/L (3.6-5.0)
[2019-07-05] MEDS: ONDANSETRON 4 MG (ZOFRAN) ORAL DISSOLVE TAB PO PRN (08:06)
--- NOTE | 2019-07-05 09:05 | PM&R Progress Note ---
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 with musical performer of Systems General: Fatigue Musculoskeletal: back pain Objective Exam Vital Signs Vital Signs Date Time Temp Pulse Resp B/P (MAP) Pulse Ox O2 Delivery O2 Flow Rate FiO2 07/05/19 08:05 Room Air 07/05/19 06:25 36.4 61 16 131/77 (95) 99 Capillary Refill : Less Than 3 Seconds General Appearance: No Apparent Distress, WD/WN, Chronically ill, Obese HEENT: PERRL/EOMI, Normal ENT Inspection, Pharynx Normal Neck: Full Range of Motion, Normal Inspection, Non Tender, Supple Respiratory: Chest Non Tender, Lungs Clear, No Accessory Muscle Use, No Respiratory Distress Cardiovascular: Regular Rate, Rhythm, No Gallop, No JVD, No Murmur, Normal Peripheral Pulses Gastrointestinal: Normal Bowel Sounds, No Organomegaly, No Pulsatile Mass, Non Tender, Soft Back: Normal Inspection, No CVA Tenderness, No Vertebral Tenderness Extremity: Normal Capillary Refill, Normal Inspection, Normal Range of Motion, Non Tender, No Calf Tenderness, Pedal Edema Neurologic/Psychiatric: Alert, Oriented x3, Normal Mood/Affect, Motor Weakness (generalized legs) Skin: Normal Color, Warm/Dry Lymphatic: No Adenopathy Results/Procedures Lab Laboratory Tests 07/05/19 06:08 Patient resulted labs reviewed. FIM Transfers Therapy Code Descriptions/Definitions Functional [place] Measure: 0=Not Assessed/NA 4=Minimal Assistance 1=Total Assistance 5=Supervision or Setup 2=Maximal Assistance 6=Modified [place] 3=Moderate Assistance 7=Complete IndependenceSCALE: Activities may be completed with or without assistive devices. 5-Qybchqzoxx-gtdqsfv completes the activity by him/herself with no assistance from a helper. 5-Set-up or Clean-up Assistance-helper sets up or cleans up; patient completes activity. [place] assists only prior to or following the activity. 4-Supervision or Touching Assistance-helper provides verbal cues and/or touching/steadying and/or contact guard assistance as patient completes activity. Assistance may be provided throughout the activity or intermittently. 3-Partial/Moderate Assistance-helper does LESS THAN HALF the effort. [place] l ifts, holds or supports trunk or limbs, but provides less than half the effort. 2-Substantial/Maximal Assistance-helper does MORE THAN HALF the effort. [place] lifts or holds trunk or limbs and provides more than half the effort. 0-Pwrawydhh-kwzqoo does ALL the effort. Patient does none of the effort to complete the activity. Or, the assistance of 2 or more helpers is required for the patient to complete the activity. If activity was not attempted, code reason: 7-Patient Refused. 9-Not Applicable-not attempted and the patient did not perform the activity before the current illness, exacerbation or injury. 10-Not Attempted due to Environmental Limitations-(lack of equipment, weather restraints, etc.). 88-Not Attempted due to Medical Conditions or Safety Concerns. Transfers (B, C, W/C) (FIM): 3 Roll Left to Right (QC): 4 Sit to Lying (QC): 3 Sit to Stand (QC): 3 (Mildred to CGA) Chair/Oov-xj-Vdcsw Xfer(QC): 4 Car Transfer (QC): 88 Gait Training Does the Patient Walk?: Yes Gait (FIM): 4 Distance: 100'X2 Walk 10 feet (QC): 4 (SBA) Walk 50 ft with 2 Turns(QC): 4 (SBA) Walk 150 ft (QC): 4 (SBA) Walking 10ft/uneven surface-QC: 88 Gait Persons Needed: 1 Gait Assistive Device: FWW Wheelchair Training Does the Pt Use a Wheelchair?: Yes Distance: 50' Wheel 50 ft with 2 turns (QC): 3 (modA) Wheel 150 ft (QC): 9 Type of Wheelchair: Manual Stair Training 1 Step (curb) (QC): 88 4 Steps (QC): 88 12 Steps (QC): 88 Balance Picking up an Object (QC): 88 ADL-Treatment Eating (QC): 6 Oral Hygiene (QC): 4 (completes with FWW, SBA) Shower/Bathe Self (QC): 4 (s/u for showering items. Pt required LHS for reaching back and feet with success. SBA in stance.) Upper Body Dressing (QC): 6 Lower Body Dressing (QC): 4 (SBA in stance. Requires min cues for proper ortho nurse use during LB dressing.) On/Off Footwear (QC): 1 (TD, unable to reach top of socks) Toileting Hygiene (QC): 6 Toilet Transfer (QC): 4 (SBA to commode , use of FWW) Assessment/Plan Assessment and Plan Assess & Plan/Chief Complaint Assessment: Myopathy with debility Status post anasarca 40 pounds of diuresis at [place] New colostomy status Hypertension Volume overload with edema Severe anemia with iron deficiency ordered iron infusions Nausea with pain medication will start giving snack before meds given Sciatica right sided? today improved and placed on steroids per PCP Plan: Checked meds and labs Inpatient rehabilitation protocol but is slower pace of 11/03 Monitor nausea Supportive care Food before pain pill IV iron infusions ordered PCP to manage the right sided sciatica (1) Myopathy Assessment & Plan: inpatient rehab (2) HFrEF (heart failure with reduced ejection fraction) Status: Acute Qualifiers: Heart failure chronicity: chronic Qualified Codes: I50.22 - Chronic systolic (congestive) heart failure (3) Hypothyroid Status: Chronic Assessment & Plan: continue levothyroxine (4) Acute on chronic kidney failure Status: Acute (5) Diverticulitis of intestine with perforation Status: Acute Assessment & Plan: s/p surgery 05/30/19 (6) Hypertension Qualifiers: Hypertension type: essential hypertension Qualified Codes: I10 - Essential (primary) hypertension (7) Anemia of chronic disease (8) Iron deficiency anemia Assessment & Plan: iron infusions (9) Right sided sciatica MATT NEWELL DO Jul 05, 2019 09:05 POS
[2019-07-05] MEDS: DOCUSATE SODIUM 100 MG (COLACE) CAP PO SCH (09:14)
[2019-07-05] MEDS: IRON SUCROSE 200 MG/10 ML (VENOFER) VIAL IV SCH (09:14)
[2019-07-05] MEDS: GABAPENTIN 300 MG (NEURONTIN) CAP PO SCH ×3 (09:14→20:32)
[2019-07-05] MEDS: SENNA W/DOCUSATE (SENOKOT S) TABLET PO SCH ×2 (09:14→20:32)
--- NOTE | 2019-07-05 10:10 | Occupational Ther Daily Note ---
OT Current Status-Daily Note Subjective Pt in bed, agrees to treatment. Pt reports nausea, RN present and provided medication. ADL-Treatment Pt declined bathing or changing clothes today. Supine to sit with min assist. Sit to stand with CGA with bed raised. Gait to restroom with FWW. Transfer to [facility] over toilet with SBA. Pt able to complete toileting hygiene and clothing management with supervision. Sit to stand from raised toilet with SBA using grab bar. Pt stood at sink to complete grooming tasks. Pt washed hands and face, combed hair, and completed oral care with SBA. Seated rest break taken after grooming. Increased time for ADLs. Therapy Code Descriptions/Definitions Functional [place] Measure: 0=Not Assessed/NA 4=Minimal Assistance 1=Total Assistance 5=Supervision or Setup 2=Maximal Assistance 6=Modified [place] 3=Moderate Assistance 7=Complete IndependenceSCALE: Activities may be completed with or without assistive devices. 2-Kdcjcsbzqo-oiefgld completes the activity by him/herself with no assistance from a helper. 5-Set-up or Clean-up Assistance-helper sets up or cleans up; patient completes activity. [place] assists only prior to or following the activity. 4-Supervision or Touching Assistance-helper provides verbal cues and/or touching/steadying and/or contact guard assistance as patient completes activity. Assistance may be provided throughout the activity or intermittently. 3-Partial/Moderate Assistance-helper does LESS THAN HALF the effort. [place] lif ts, holds or supports trunk or limbs, but provides less than half the effort. 2-Substantial/Maximal Assistance-helper does MORE THAN HALF the effort. [place] lifts or holds trunk or limbs and provides more than half the effort. 4-Agscszdse-enyzkn does ALL the effort. Patient does none of the effort to complete the activity. Or, the assistance of 2 or more helpers is required for the patient to complete the activity. If activity was not attempted, code reason: 7-Patient Refused. 9-Not Applicable-not attempted and the patient did not perform the activity before the current illness, exacerbation or injury. 10-Not Attempted due to Environmental Limitations-(lack of equipment, weather restraints, etc.). 88-Not Attempted due to Medical Conditions or Safety Concerns. Oral Hygiene (QC): 4 Toileting Hygiene (QC): 4 Toilet Transfer (QC): 4 Other Treatment Gait to therapy gym with FWW, slow pace. Rest break taken upon arrival to gym. Arm bike [id number] to increase overall strength and activity tolerance needed for functional task completion. Pt performed task with minimal resistance and slow pace. No rest breaks needed. Pt completed putty activity with bilateral hands to increase strength and coordination/manipulation skills. Pt able to remove small beads from medium resistance putty with increased time. Pt returned to room, sitting in chair with needs met after session. OT Short Term Goals Short Term Goals Upper Body Dressing(FIM): 4 (met) Lower Body Dressing(FIM): 3 (met) Toileting(FIM): 2 (met) Transfers (B,C,W/C) (FIM): 3 (met) Additional Short Term Goals: 1-Demonstrate ADL Tasks, 2-Verbalize Understanding, 3-ImproveStrength/[place] 1=Demonstrate adherence to instructed precautions during ADL tasks. 2=Patient will verbalize/demonstrate understanding of assistive devices/modifications for ADL. 3=Patient will improve strength/tolerance for activity to enable patient to perform ADL's. OT Alf Goals Alf Goals Time Frame: Jul 11, 2019 Eating (QC): 6 Oral Hygiene (QC): 6 Shower/Bathe Self (QC): 5 Upper Body Dressing (QC): 6 (met) Lower Body Dressing (QC): 4 (met) On/Off Footwear (QC): 6 Toileting Hygiene (QC): 4 (met) Toilet/Commode Transfer (QC): 6 Additional Goals: 1-Demonstrate ADL Tasks, 2-Verbalize Understanding, 3- ImproveStrength/[place] 1=Demonstrate adherence to instructed precautions during ADL tasks. 2=Patient will verbalize/demonstrate understanding of assistive devices/modifications for ADL. 3=Patient will improve strength/tolerance for activity to enable patient to perform ADL's. OT Education/Plan Discharge Recommendations Plan/Recommendations: Continue POC Treatment Plan/Plan of Care Patient would benefit from OT for education, treatment and training to promote independence in ADL's, mobility, safety and/or upper extremity function for ADL's. Plan of Care: ADL Retraining, Caregiver Training, Concurrent Therapy, Functional Mobility, Group Exercise/Act as Ind, UE Funct Exercise/Act, W/C Management Training Treatment Duration: Jul 11, 2019 Frequency: At least 5 of 7 days/Wk (IRF) Estimated Hrs Per Day: 1.5 hours per day Agreement: Yes Rehab Potential: Fair Time/GCodes Start Time: 08:00 Stop Time: 09:00 Total Time Billed (hr/min): 60 Billed Treatment Time 1 visit, ADLx2(30minutes), EXx2(30minutes) DEEPAK COLLINS OT Jul 05, 2019 10:10 POS
--- NOTE | 2019-07-05 10:52 | Physical Therapy Daily Note ---
PT Daily Note-Current Subjective pt in recliner pre-tx agrees to PT this morning. pt c/o being tired and sore but no pain at this time. Appearance pt in recliner post-tx with call light, room phone, tray table in reach and all needs met at this time. Mental Status Patient Orientation: Person, Place, Time, Situation Attachments: IV Transfers SCALE: Activities may be completed with or without assistive devices. 0-Owgrccxjgy-bzkchap completes the activity by him/herself with no assistance from a helper. 5-Set-up or Clean-up Assistance-helper sets up or cleans up; patient completes activity. [place] assists only prior to or following the activity. 4-Supervision or Touching Assistance-helper provides verbal cues and/or touching/steadying and/or contact guard assistance as patient completes activity. Assistance may be provided throughout the activity or intermittently. 3-Partial/Moderate Assistance-helper does LESS THAN HALF the effort. [place] lifts, holds or supports trunk or limbs, but provides less than half the effort. 2-Substantial/Maximal Assistance-helper does MORE THAN HALF the effort. [place] lifts or holds trunk or limbs and provides more than half the effort. 9-Yydbwhdro-cwbgng does ALL the effort. Patient does none of the effort to complete the activity. Or, the assistance of 2 or more helpers is required for the patient to complete the activity. If activity was not attempted, code reason: 7-Patient Refused. 9-Not Applicable-not attempted and the patient did not perform the activity before the current illness, exacerbation or injury. 10-Not Attempted due to Environmental Limitations-(lack of equipment, weather restraints, etc.). 88-Not Attempted due to Medical Conditions or Safety Concerns. Sit to Stand (QC): 4 (CGA) Weight Bearing Right Lower Extremity: Right Full Weight Bearing Left Lower Extremity: Left Full Weight Bearing Gait Training Distance: 200', 100' Walk 10 feet (QC): 4 (SBA) Walk 50 ft with 2 Turns(QC): 4 (SBA) Walk 150 ft (QC): 4 (SBA) Gait Assistive Device: FWW Pt ambulates with FWW out in front of her leaning and bearing increased weight through B/L UE, very slow ambulation Wheelchair Training Does the Pt Use a Wheelchair?: No Exercises Seated Therapy Exercises: Sit to stand Seated Reps: 20 (4sets 5 reps) NuStep Minutes: 15 NuStep Workload: 5 Treatments pt performed transfer training, skilled ambulation training, functional LE endurance training, and education this date. Assessment Current Status: Good Progress pt with improved sit to stands today. Pt had to rock 3 times to stand from chair for the first time but was able to stand CGA. Pt reports she is tired and worn out following structured therapy. PT Short Term Goals Short Term Goals Time Frame: Jun 29, 2019 Wheelchair Distance: 50' PT Family Service Worker Goals Long-Term Goals PT Long-Term Goals Time Frame: Jul 19, 2019 Sit to Lying (QC): 5 Lying-Sitting on Side/Bed(QC): 5 Sit to Stand (QC): 5 Roll Left to Right (QC): 5 Chair/Imd-ry-Bteid Xfer(QC): 5 Car Transfer (QC): 5 Does the Patient Walk: Yes Distance: 150' Walk 10 feet (QC): 4 (CGA) Walk 10ft-Uneven Surface(QC): 4 (CGA) Walk 50ft with 2 Turns (QC): 4 (CGA) Gait Assistive Device: FWW Does the Pt use WC or Scooter?: No 1 Step (curb) (QC): 3 (Mildred) PT Plan Problem List Problem List: Activity Tolerance, Functional Strength, Safety, Balance, Gait, Transfer, Bed Mobility Treatment/Plan Treatment Plan: Continue Plan of Care Treatment Plan: Bed Mobility, Education, Functional Activity [place], Functional Strength, Group Therapy, Gait, Safety, Therapeutic Exercise, Transfers Treatment Duration: Jul 19, 2019 Frequency: At least 5 of 7 days/Wk (IRF) Estimated Hrs Per Day: 1.5 hours per day Patient and/or Family Agrees t: Yes Safety Risks/Education Patient Education: Gait Training, Transfer Techniques, Correct Positioning, W/C Management, Safety Issues Teaching Recipient: Patient Teaching Methods: Demonstration, Discussion Response to Teaching: Verbalize Understanding, Return Demonstration, Reinforcement Needed Time/GCodes Time In: 1000 Time Out: 1100 Total Billed Treatment Time: 60 Total Billed Treatment 1 visit GT 20' FA 40' NORIS CARUSO PT Jul 05, 2019 10:52 POS
[2019-07-05] MEDS: HYDROcodone/APAP 5 MG/325 MG (LORTAB) TAB PO PRN ×2 (10:53→15:21)
[2019-07-05] MEDS ORDERED: predniSONE 20 MG TAB PO NR (12:15)
[2019-07-05] MEDS ORDERED: predniSONE 10 MG TAB PO SCH (12:15)
--- NOTE | 2019-07-05 13:17 | NUR ---
provided prayer and Communion.
--- NOTE | 2019-07-05 14:40 | Therapy Group Daily Note ---
Therapy Daily Group Note Patient Education Topic Home Safety (winter safety environment/health) Exercises LE Seated Exercise, UE Exercise Session Ratio (pt:therapist): 3:1 Goal of Session: Home Safety Strategies, UE/LE Strengthing Goal Met for this Session: Yes Pt Benefit of Group: Contributions to Others, F/U Use of Strategies @Home, Increased Functional Strength, Improved Cognition, Recognition of Peers, Socialization Other/Notes Pt ambulated using FWW to [facility] for OT/PT group. Group consisted of introductions (name, place, favorite chili ingredient), socialization, pt led UE/LE seated exercises, winter safety in environment and health. Pt introduced self appropriately and actively listened to peers. Pt demonstrated understanding of educational topics by giving personal stories and own strategies used. Pt then was able to lead one exercise and complete other exercises without difficulty. After therapy, pt sitting in recliner with call light/phone in reach. All needs met in room. Start Time: 13:00 Stop Time: 14:10 Total Billed Treatment Time: 70 Total Billed Treatment 1-GRP SPENCER PALUMBO Jul 05, 2019 14:40 POS
--- NOTE | 2019-07-05 14:48 | NUR ---
RD ASSESSMENT PMHx: HTN; hypercholesterolemia PT INTERACTION: Pt was awake and pleasant during nutrition follow-up. Pt states she is eating better since last assessment. Note avg PO intake 64% x3d. Pt states some issues with nausea: "I always feel nauseated after breakfast." Pt is unsure if this is caused by her meal or by medications. Pt states no problems with colostomy output since last assessment. ABNORMAL NUTRITION-RELATED LAB VALUES: K 5.1 (H); BUN 59 (H); cr 1.99 (H); glu 109 (H) Est. kcal needs: 9922-5181 kcal (15-20 kcal/kg) Est. Pro needs: 74-93 g Pro (0.8-1.0 g Pro/kg) PES STATEMENT: Inadequate oral intake (NI-2.1) related to loss of appetite as evidenced by 63% meals x4d | pt interview INTERVENTION: Continue with current diet order of [place] diet. Continue with current supplementation order of Ensure Plus with meals TID. Provides 350 kcal and 13 g Pro per serving. MONITOR/EVALUATE: PO Intake; Plan of Care; Hydration Status; Weight Status; Lab Values Phyllis Johnson, MS, RD, LD Ext. [phone]
[2019-07-05 16:00] VITALS: BP 118/71
[2019-07-05] MEDS: ENOXAPARIN 30 MG/0.3 ML (LOVENOX) SYR SC SCH (17:55)
[2019-07-05] MEDS: SIMvastatin 40 MG (ZOCOR) TAB PO SCH (20:32)
[2019-07-05] MEDS: MELATONIN 3 MG TABLET PO SCH (20:32)
[2019-07-06] MEDS: HYDROcodone/APAP 5 MG/325 MG (LORTAB) TAB PO PRN ×3 (00:50→20:31)
[2019-07-06 05:30] VITALS: BP 135/81
[2019-07-06] MEDS: LEVOTHYROXINE 50 MCG (LEVOTHROID) TAB PO SCH (05:59)
[2019-07-06] MEDS: PANTOPRAZOLE 40 MG (PROTONIX) TAB PO SCH (06:00)
[2019-07-06] MEDS: DOCUSATE SODIUM 100 MG (COLACE) CAP PO SCH (09:03)
[2019-07-06] MEDS: SENNA W/DOCUSATE (SENOKOT S) TABLET PO SCH ×2 (09:03→20:30)
[2019-07-06] MEDS: GABAPENTIN 300 MG (NEURONTIN) CAP PO SCH ×3 (09:03→20:31)
[2019-07-06] MEDS: lisINopril 10 MG (PRINIVIL) TABLET PO SCH (09:10)
--- NOTE | 2019-07-06 09:48 | PM&R Progress Note ---
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 of Systems General: Fatigue Musculoskeletal: back pain Objective Exam Vital Signs Vital Signs Date Time Temp Pulse Resp B/P (MAP) Pulse Ox O2 Delivery O2 Flow Rate FiO2 07/07/19 17:34 36.9 77 16 124/68 (86) 97 Room Air Capillary Refill : Less Than 3 Seconds General Appearance: No Apparent Distress, WD/WN, Chronically ill, Obese HEENT: PERRL/EOMI, Normal ENT Inspection, Pharynx Normal Neck: Full Range of Motion, Normal Inspection, Non Tender, Supple Respiratory: Chest Non Tender, Lungs Clear, No Accessory Muscle Use, No Respiratory Distress Cardiovascular: Regular Rate, Rhythm, No Gallop, No JVD, No Murmur, Normal Peripheral Pulses Gastrointestinal: Normal Bowel Sounds, No Organomegaly, No Pulsatile Mass, Non Tender, Soft Back: Normal Inspection, No CVA Tenderness, No Vertebral Tenderness Extremity: Normal Capillary Refill, Normal Inspection, Normal Range of Motion, Non Tender, No Calf Tenderness, Pedal Edema Neurologic/Psychiatric: Alert, Oriented x3, Normal Mood/Affect, Motor Weakness (generalized legs) Skin: Normal Color, Warm/Dry Lymphatic: No Adenopathy Results/Procedures Lab Patient resulted labs reviewed. FIM Transfers Therapy Code Descriptions/Definitions Functional [place] Measure: 0=Not Assessed/NA 4=Minimal Assistance 1=Total Assistance 5=Supervision or Setup 2=Maximal Assistance 6=Modified [place] 3=Moderate Assistance 7=Complete IndependenceSCALE: Activities may be completed with or without assistive devices. 3-Tidlmhgtxm-xyrqleq completes the activity by him/herself with no assistance from a helper. 5-Set-up or Clean-up Assistance-helper sets up or cleans up; patient completes activity. [place] assists only prior to or following the activity. 4-Supervision or Touching Assistance-helper provides verbal cues and/or touching/steadying and/or contact guard assistance as patient completes activity. Assistance may be provided throughout the activity or intermittently. 3-Partial/Moderate Assistance-helper does LESS THAN HALF the effort. [place] lifts, holds or supports trunk or limbs, but provides less than half the effort. 2-Substantial/Maximal Assistance-helper does MORE THAN HALF the effort. [place] lifts or holds trunk or limbs and provides more than half the effort. 4-Quvwodbct-nopzoj does ALL the effort. Patient does none of the effort to complete the activity. Or, the assistance of 2 or more helpers is required for the patient to complete the activity. If activity was not attempted, code reason: 7-Patient Refused. 9-Not Applicable-not attempted and the patient did not perform the activity before the current illness, exacerbation or injury. 10-Not Attempted due to Environmental Limitations-(lack of equipment, weather restraints, etc.). 88-Not Attempted due to Medical Conditions or Safety Concerns. Transfers (B, C, W/C) (FIM): 3 Roll Left to Right (QC): 4 Sit to Lying (QC): 3 Sit to Stand (QC): 4 (CGA) Chair/Gtx-ph-Bjajp Xfer(QC): 4 Car Transfer (QC): 88 Gait Training Does the Patient Walk?: Yes Gait (FIM): 4 Distance: 200', 100' Walk 10 feet (QC): 4 (SBA) Walk 50 ft with 2 Turns(QC): 4 (SBA) Walk 150 ft (QC): 4 (SBA) Walking 10ft/uneven surface-QC: 88 Gait Persons Needed: 1 Gait Assistive Device: FWW Wheelchair Training Does the Pt Use a Wheelchair?: No Distance: 50' Wheel 50 ft with 2 turns (QC): 3 (modA) Wheel 150 ft (QC): 9 Type of Wheelchair: Manual Stair Training 1 Step (curb) (QC): 88 4 Steps (QC): 88 12 Steps (QC): 88 Balance Picking up an Object (QC): 88 ADL-Treatment Eating (QC): 6 Oral Hygiene (QC): 4 Shower/Bathe Self (QC): 4 (s/u for showering items. Pt required LHS for reachin g back and feet with success. SBA in stance.) Upper Body Dressing (QC): 6 Lower Body Dressing (QC): 4 (SBA in stance. Requires min cues for proper newswriter use during LB dressing.) On/Off Footwear (QC): 1 (TD, unable to reach top of socks) Toileting Hygiene (QC): 4 Toilet Transfer (QC): 4 Assessment/Plan Assessment and Plan Assess & Plan/Chief Complaint Assessment: Myopathy with debility Status post anasarca 40 pounds of diuresis at [place] New colostomy status Hypertension Volume overload with edema Severe anemia with iron deficiency ordered iron infusions Nausea with pain medication will start giving snack before meds given Sciatica right sided? today improved and placed on steroids per PCP Plan: Checked meds and labs Inpatient rehabilitation protocol but is slower pace of 11/03 Monitor nausea Supportive care Food before pain pill IV iron infusions ordered PCP to manage the right sided sciatica Continue DAVID wraps of legs (1) Myopathy Assessment & Plan: inpatient rehab (2) HFrEF (heart failure with reduced ejection fraction) Status: Acute Qualifiers: Heart failure chronicity: chronic Qualified Codes: I50.22 - Chronic systolic (congestive) heart failure (3) Hypothyroid Status: Chronic Assessment & Plan: continue levothyroxine (4) Acute on chronic kidney failure Status: Acute (5) Diverticulitis of intestine with perforation Status: Acute Assessment & Plan: s/p surgery 05/30/19 (6) Hypertension Qualifiers: Hypertension type: essential hypertension Qualified Codes: I10 - Essential (primary) hypertension (7) Anemia of chronic disease (8) Iron deficiency anemia Assessment & Plan: iron infusions (9) Right sided sciatica MATT NEWELL DO Jul 06, 2019 09:48 POS
--- NOTE | 2019-07-06 09:59 | Physical Therapy Daily Note ---
PT Daily Note-Current Subjective Pt. agrees to Rx, likes to visit. Feels she has made improvement Pain Location: No Pain Reported Mental Status Patient Orientation: Normal For Age Transfers SCALE: Activities may be completed with or without assistive devices. 3-Eyqjkwtpbl-qdwcuqg completes the activity by him/herself with no assistance from a helper. 5-Set-up or Clean-up Assistance-helper sets up or cleans up; patient completes activity. [place] assists only prior to or following the activity. 4-Supervision or Touching Assistance-helper provides verbal cues and/or touching/steadying and/or contact guard assistance as patient completes activity. Assistance may be provided throughout the activity or intermittently. 3-Partial/Moderate Assistance-helper does LESS THAN HALF the effort. [place] lifts, holds or supports trunk or limbs, but provides less than half the effort. 2-Substantial/Maximal Assistance-helper does MORE THAN HALF the effort. [place] lifts or holds trunk or limbs and provides more than half the effort. 1-Zlpzyrkjd-yuttdz does ALL the effort. Patient does none of the effort to complete the activity. Or, the assistance of 2 or more helpers is required for the patient to complete the activity. If activity was not attempted, code reason: 7-Patient Refused. 9-Not Applicable-not attempted and the patient did not perform the activity before the current illness, exacerbation or injury. 10-Not Attempted due to Environmental Limitations-(lack of equipment, weather restraints, etc.). 88-Not Attempted due to Medical Conditions or Safety Concerns. Transfers (B, C, W/C): 4 Roll Left to Right (QC): 5 Sit to Lying (QC): 4 Sit to Stand (QC): 5 Weight Bearing Right Lower Extremity: Right Full Weight Bearing Left Lower Extremity: Left Full Weight Bearing Gait Training Does the Patient Walk?: Yes Gait: 5 Walk 10 feet (QC): 5 Walk 50 ft with 2 Turns(QC): 5 Walk 150 ft (QC): 5 Gait Persons Needed: 1 Gait Assistive Device: FWW Exercises Supine Ex: Ankle pumps, Quad Set, Glut sets, Heel Slides, Hip abd/add Supine Reps: 12 Assessment Current Status: Good Progress PT Short Term Goals Short Term Goals Time Frame: Jun 29, 2019 Wheelchair Distance: 50' PT Usp Goals Usp Goals PT Usp Goals Time Frame: Jul 19, 2019 Sit to Lying (QC): 5 Lying-Sitting on Side/Bed(QC): 5 Sit to Stand (QC): 5 Roll Left to Right (QC): 5 Chair/Kzg-xl-Qakle Xfer(QC): 5 Car Transfer (QC): 5 Does the Patient Walk: Yes Distance: 150' Walk 10 feet (QC): 4 (CGA) Walk 10ft-Uneven Surface(QC): 4 (CGA) Walk 50ft with 2 Turns (QC): 4 (CGA) Gait Assistive Device: FWW Does the Pt use WC or Scooter?: No 1 Step (curb) (QC): 3 (Mildred) PT Plan Treatment/Plan Treatment Plan: Continue Plan of Care Treatment Plan: Bed Mobility, Education, Functional Activity [place], Functional Strength, Group Therapy, Gait, Safety, Therapeutic Exercise, Transfers Treatment Duration: Jul 19, 2019 Frequency: At least 5 of 7 days/Wk (IRF) Estimated Hrs Per Day: 1.5 hours per day Patient and/or Family Agrees t: Yes Safety Risks/Education Patient Education: Gait Training, Transfer Techniques, Correct Positioning, Disease Process, Safety Issues Teaching Recipient: Patient Teaching Methods: Demonstration, Discussion Response to Teaching: Verbalize Understanding, Return Demonstration, Reinforcement Needed Time/GCodes Time In: 930 Time Out: 950 Total Billed Treatment Time: 20 Total Billed Treatment 1,FA20m DAR CHANEY RETAIL FIELD REPRESENTATIVE Jul 06, 2019 09:59 POS
[2019-07-06] MEDS ORDERED: predniSONE 20 MG TAB PO NR (12:15)
[2019-07-06] MEDS ORDERED: predniSONE 1 MG TAB PO ONE (12:15)
[2019-07-06] MEDS: ENOXAPARIN 30 MG/0.3 ML (LOVENOX) SYR SC SCH (16:28)
[2019-07-06 16:50] VITALS: BP 133/59
[2019-07-06] MEDS: MELATONIN 3 MG TABLET PO SCH (20:31)
[2019-07-06] MEDS: SIMvastatin 40 MG (ZOCOR) TAB PO SCH (20:31)
[2019-07-07] MEDS: HYDROcodone/APAP 5 MG/325 MG (LORTAB) TAB PO PRN ×3 (03:08→22:31)
[2019-07-07 05:09] VITALS: BP 155/82
[2019-07-07] MEDS: LEVOTHYROXINE 50 MCG (LEVOTHROID) TAB PO SCH (06:07)
[2019-07-07] MEDS: PANTOPRAZOLE 40 MG (PROTONIX) TAB PO SCH (06:07)
[2019-07-07] MEDS: DOCUSATE SODIUM 100 MG (COLACE) CAP PO SCH (09:46)
[2019-07-07] MEDS: GABAPENTIN 300 MG (NEURONTIN) CAP PO SCH ×3 (09:46→19:50)
[2019-07-07] MEDS: POLYETHYLENE GLYCOL 17 GM (MIRALAX) PACK PO PRN (09:46)
[2019-07-07] MEDS: IRON SUCROSE 200 MG/10 ML (VENOFER) VIAL IV SCH (09:47)
[2019-07-07] MEDS: SENNA W/DOCUSATE (SENOKOT S) TABLET PO SCH ×2 (09:47→19:50)
[2019-07-07] MEDS: lisINopril 10 MG (PRINIVIL) TABLET PO SCH (09:47)
[2019-07-07] MEDS ORDERED: predniSONE 10 MG TAB PO NR (12:15)
[2019-07-07] MEDS: ONDANSETRON 4 MG (ZOFRAN) ORAL DISSOLVE TAB PO PRN (16:03)
--- NOTE | 2019-07-07 16:37 | NUR ---
Patient has experienced two episodes of colostomy leaking under wafer, having to change appliance twice. PRN Miralax given in the morning to help thin stools, in hopes of avoiding leak again. Patient tolerated changes well.
[2019-07-07 17:34] VITALS: BP 124/68
[2019-07-07] MEDS: ENOXAPARIN 30 MG/0.3 ML (LOVENOX) SYR SC SCH (17:49)
--- NOTE | 2019-07-07 18:03 | PM&R Progress Note ---
Subjective HPI/CC On Admission Date Seen by Provider: Jul 07, 2019 Time Seen by Provider: 17:45 Subjective/Events-last exam Nausea is managed fairly well now Wound is changed twice a day and packed Dr Santos managing the colostomy and it works pretty well but Miralax was changed Labs reviewed and will get another set in the morning Pain is pretty well controlled Prednisone has helped the sciatica but at night is when it is really bad 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 with book editor of Systems General: Fatigue Musculoskeletal: back pain, leg pain Objective Exam Vital Signs Vital Signs Date Time Temp Pulse Resp B/P (MAP) Pulse Ox O2 Delivery O2 Flow Rate FiO2 07/07/19 17:34 36.9 77 16 124/68 (86) 97 Room Air Capillary Refill : Less Than 3 Seconds General Appearance: No Apparent Distress, WD/WN, Chronically ill, Obese HEENT: PERRL/EOMI, Normal ENT Inspection, Pharynx Normal Neck: Full Range of Motion, Normal Inspection, Non Tender, Supple Respiratory: Chest Non Tender, Lungs Clear, No Accessory Muscle Use, No Respiratory Distress Cardiovascular: Regular Rate, Rhythm, No Gallop, No JVD, No Murmur, Normal Peripheral Pulses Gastrointestinal: Normal Bowel Sounds, No Organomegaly, No Pulsatile Mass, Non Tender, Soft Back: Normal Inspection, No CVA Tenderness, No Vertebral Tenderness Extremity: Normal Capillary Refill, Normal Inspection, Normal Range of Motion, Non Tender, No Calf Tenderness, Pedal Edema Neurologic/Psychiatric: Alert, Oriented x3, Normal Mood/Affect, Motor Weakness (generalized legs) Skin: Normal Color, Warm/Dry Lymphatic: No Adenopathy Results/Procedures Lab Patient resulted labs reviewed. FIM Transfers Therapy Code Descriptions/Definitions Functional [place] Measure: 0=Not Assessed/NA 4=Minimal Assistance 1=Total Assistance 5=Supervision or Setup 2=Maximal Assistance 6=Modified [place] 3=Moderate Assistance 7=Complete IndependenceSCALE: Activities may be completed with or without assistive devices. 2-Pynhbiosrr-mabrecz completes the activity by him/herself with no assistance from a helper. 5-Set-up or Clean-up Assistance-helper sets up or cleans up; patient completes activity. [place] assists only prior to or following the activity. 4-Supervision or Touching Assistance-helper provides verbal cues and/or touching/steadying and/or contact guard assistance as patient completes activity. Assistance may be provided throughout the activity or intermittently. 3-Partial/Moderate Assistance-helper does LESS THAN HALF the effort. [place] lifts, holds or supports trunk or limbs, but provides less than half the effort. 2-Substantial/Maximal Assistance-helper does MORE THAN HALF the effort. [place] lifts or holds trunk or limbs and provides more than half the effort. 3-Moiwemrxu-tyeree does ALL the effort. Patient does none of the effort to complete the activity. Or, the assistance of 2 or more helpers is required for the patient to complete the activity. If activity was not attempted, code reason: 7-Patient Refused. 9-Not Applicable-not attempted and the patient did not perform the activity be fore the current illness, exacerbation or injury. 10-Not Attempted due to Environmental Limitations-(lack of equipment, weather restraints, etc.). 88-Not Attempted due to Medical Conditions or Safety Concerns. Transfers (B, C, W/C) (FIM): 4 Roll Left to Right (QC): 5 Sit to Lying (QC): 4 Sit to Stand (QC): 5 Chair/Zok-jj-Zqdbx Xfer(QC): 4 Car Transfer (QC): 88 Gait Training Does the Patient Walk?: Yes Gait (FIM): 5 Distance: 200', 100' Walk 10 feet (QC): 5 Walk 50 ft with 2 Turns(QC): 5 Walk 150 ft (QC): 5 Walking 10ft/uneven surface-QC: 88 Gait Persons Needed: 1 Gait Assistive Device: FWW Wheelchair Training Does the Pt Use a Wheelchair?: No Distance: 50' Wheel 50 ft with 2 turns (QC): 3 (modA) Wheel 150 ft (QC): 9 Type of Wheelchair: Manual Stair Training 1 Step (curb) (QC): 88 4 Steps (QC): 88 12 Steps (QC): 88 Balance Picking up an Object (QC): 88 ADL-Treatment Eating (QC): 6 Oral Hygiene (QC): 4 Shower/Bathe Self (QC): 4 (s/u for showering items. Pt required LHS for reaching back and feet with success. SBA in stance.) Upper Body Dressing (QC): 6 Lower Body Dressing (QC): 4 (SBA in stance. Requires min cues for proper tablet making machine operator helper use during LB dressing.) On/Off Footwear (QC): 1 (TD, unable to reach top of socks) Toileting Hygiene (QC): 4 Toilet Transfer (QC): 4 Assessment/Plan Assessment and Plan Assess & Plan/Chief Complaint Assessment: Myopathy with debility Status post anasarca 40 pounds of diuresis at [place] New colostomy status Hypertension Volume overload with edema Severe anemia with iron deficiency ordered iron infusions Nausea with pain medication will start giving snack before meds given Sciatica right sided? today improved and placed on steroids per PCP Plan: Checked meds and labs Inpatient rehabilitation protocol but is slower pace of 11/03 Monitor nausea Supportive care Food before pain pill IV iron infusions ordered PCP to manage the right sided sciatica but seems to be getting worse at night (1) Myopathy Assessment & Plan: inpatient rehab (2) HFrEF (heart failure with reduced ejection fraction) Status: Acute Qualifiers: Heart failure chronicity: chronic Qualified Codes: I50.22 - Chronic systolic (congestive) heart failure (3) Hypothyroid Status: Chronic Assessment & Plan: continue levothyroxine (4) Acute on chronic kidney failure Status: Acute (5) Diverticulitis of intestine with perforation Status: Acute Assessment & Plan: s/p surgery 05/30/19 (6) Hypertension Qualifiers: Hypertension type: essential hypertension Qualified Codes: I10 - Essential (primary) hypertension (7) Anemia of chronic disease (8) Iron deficiency anemia Assessment & Plan: iron infusions (9) Right sided sciatica MATT NEWELL DO Jul 07, 2019 18:03 POS
[2019-07-07] MEDS: SIMvastatin 40 MG (ZOCOR) TAB PO SCH (19:50)
[2019-07-07] MEDS: MELATONIN 3 MG TABLET PO SCH (19:51)
--- NOTE | 2019-07-07 23:15 | Progress Note ---
Subjective Subjective Date Seen by Provider: Jul 05, 2019 Time Seen by Provider: 18:00 LATE ENTRY FOR 07/05/19 -Patient eating supper- denies any issues- but would like to stay until inpatient rehab until 07/17/19; as she thinks she is progressing slow but making progress and the extra week would let her return home safely with home health. Pt reports her sciatica pain is significantly improved with the steroids. Slept well the last 2 nights. Review of Systems General: Fatigue Pulmonary: No Dyspnea Cardiovascular: No: Chest Pain, Palpitations Gastrointestinal: No: Nausea, Vomiting, Abdominal Pain Musculoskeletal: back pain, leg pain Neurological: Weakness Objective Exam Vital Signs temp 36.5C pulse 72 RR16 BP: 102/67 oxygen saturation 96% RA General Appearance: No Apparent Distress, WD/WN, Chronically ill, Obese HEENT: PERRL/EOMI, Normal ENT Inspection, Pharynx Normal Neck: Full Range of Motion, Normal Inspection, Non Tender, Supple Respiratory: Chest Non Tender, Lungs Clear, No Accessory Muscle Use, No Respiratory Distress Cardiovascular: Regular Rate, Rhythm, No Gallop, No JVD, No Murmur, Normal Peripheral Pulses Gastrointestinal: Normal Bowel Sounds, No Pulsatile Mass, Non Tender, Soft Back: Normal Inspection, No CVA Tenderness, No Vertebral Tenderness Extremity: Normal Capillary Refill, Normal Inspection, Normal Range of Motion, Non Tender, No Calf Tenderness, Pedal Edema Neurologic/Psychiatric: Alert, Oriented x3, Normal Mood/Affect, Motor Weakness (generalized legs) Skin: Normal Color, Warm/Dry Lymphatic: No Adenopathy Assessment/Plan Assessment/Plan Assessment and Plan 07/03/19 -acute on chronic kidney disease- holding lisinopril for 2 days- stopped furosemide. Starting bumex 1mg 05/04/19- (may change it to every other day). -Right sciatica- we will do prednisone 50mg x1, 40mg, 30, 20, 10, 5mg taper as a similar schedule gave her good relief for about a month. 07/05/19- creatinine noted to be even more elevated from her baseline- diuresis stopped, nephrotoxic agents held. K held. IVF LR started with resulting improvement in her Cr. Will continue to work on improving kidney function. Lovenox renally dosed. Blood pressure noted to be low contributing to her kidney issues. Holding DAVID I. -follow with labs on Monday07/08/19 Dispo: slowly improving- I agree with patient for her to stay until 07/17/19 to increase her odds of returning safely home. Likely d/c with HH when she is ready. Problems: (1) Myopathy Assessment & Plan: inpatient rehab (2) HFrEF (heart failure with reduced ejection fraction) Qualifiers: Qualified Codes: I50.22 - Chronic systolic (congestive) heart failure (3) Hypothyroid Assessment & Plan: continue levothyroxine (4) Acute on chronic kidney failure (5) Diverticulitis of intestine with perforation Assessment & Plan: s/p surgery 05/30/19 (6) Hypertension Qualifiers: Qualified Codes: I10 - Essential (primary) hypertension (7) Anemia of chronic disease (8) Iron deficiency anemia Assessment & Plan: iron infusions (9) Right sided sciatica Clinical Quality Measures DVT/VTE Risk/Contraindication: Risk Factor Score Per Nursin RFS Level Per Nursing on Admit: 4+=Very High MADYSON HERMAN MD Jul 07, 2019 23:15 POS
[2019-07-08] MEDS: HYDROcodone/APAP 5 MG/325 MG (LORTAB) TAB PO PRN ×4 (02:31→20:50)
[2019-07-08 05:04] VITALS: BP 168/73
[2019-07-08 05:12] LABS: BASOPHILS # (AUTO) 0.1 10^3/uL (0.0-0.1); BASOPHILS % (AUTO) 1 % (0-10); EOSINOPHILS # (AUTO) 0.1 10^3/uL (0.0-0.3); EOSINOPHILS % (AUTO) 1 % (0-10); HEMATOCRIT 26 % (35-52); HEMOGLOBIN 7.9 G/DL (11.5-16.0); LYMPHOCYTES # (AUTO) 3.7 X 10^3 (1.0-4.0); LYMPHOCYTES % (AUTO) 31 % (12-44); MEAN CORPUSCULAR HEMOGLOBIN 29 PG (25-34); MEAN CORPUSCULAR HGB CONC 31 G/DL (32-36); MEAN CORPUSCULAR VOLUME 95 FL (80-99); MEAN PLATELET VOLUME 10.6 FL (7.4-10.4); MONOCYTES # (AUTO) 1.2 X 10^3 (0.0-1.0); MONOCYTES % (AUTO) 10 % (0-12); NEUTROPHILS # (AUTO) 6.8 X 10^3 (1.8-7.8); NEUTROPHILS % (AUTO) 57 % (42-75); PLATELET COUNT 308 10^3/uL (130-400); RED CELL DISTRIBUTION WIDTH 16.6 % (10.0-14.5)
[2019-07-08] MEDS: PANTOPRAZOLE 40 MG (PROTONIX) TAB PO SCH (05:16)
[2019-07-08] MEDS: LEVOTHYROXINE 50 MCG (LEVOTHROID) TAB PO SCH (05:16)
[2019-07-08 05:42] LABS: ALBUMIN 3.4 GM/DL (3.2-4.5); BILIRUBIN,TOTAL 0.2 MG/DL (0.1-1.0); CALCIUM 9.2 MG/DL (8.5-10.1); CREATININE SERUM 1.47 MG/DL (0.60-1.30); POTASSIUM 4.4 MMOL/L (3.6-5.0); TOTAL PROTEIN 5.9 GM/DL (6.4-8.2)
[2019-07-08] MEDS: DOCUSATE SODIUM 100 MG (COLACE) CAP PO SCH (08:18)
[2019-07-08] MEDS: SENNA W/DOCUSATE (SENOKOT S) TABLET PO SCH ×2 (08:19→20:49)
[2019-07-08] MEDS: GABAPENTIN 300 MG (NEURONTIN) CAP PO SCH ×3 (08:19→20:50)
[2019-07-08] MEDS: lisINopril 10 MG (PRINIVIL) TABLET PO SCH (08:19)
--- NOTE | 2019-07-08 08:52 | Progress Note - Surgery ---
[facility] 07/08/19 0852: Subjective Date Seen by a Provider: Jul 08, 2019 Time Seen by a Provider: 08:25 Subjective/Events-last exam Pt is alert and oriented and in no acute distress. No family at bedside Pt has colostomy that is pink and has been draining. Abdominal dressings shows minor breakthrough and no erythema of surrounding skin. Pt has no pain, she has been urinating without issue. Pt has low HgB, has Iron infusions Pt states she is doing well and has no complaints Pt denied SOB, Chest pain, N/V and F/C Review of Systems General: No Chills, No Night Sweats Pulmonary: No Dyspnea, No Cough Cardiovascular: No: Chest Pain, Palpitations Gastrointestinal: No: Nausea, Vomiting, Abdominal Pain Objective Exam Vital Signs Date Time Temp Pulse Resp B/P (MAP) Pulse Ox O2 Delivery O2 Flow Rate FiO2 07/08/19 05:04 36.2 79 18 168/73 (104) 95 Room Air 07/07/19 20:34 Room Air 07/07/19 17:34 36.9 77 16 124/68 (86) 97 Room Air 07/07/19 09:00 Room Air I & O 07/08/19 07:00 Intake Total 830 ml Balance 830 ml Capillary Refill : Less Than 3 Seconds General Appearance: No Apparent Distress, WD/WN, Chronically ill, Obese HEENT: PERRL/EOMI, Normal ENT Inspection, Pharynx Normal Neck: Full Range of Motion, Normal Inspection, Non Tender, Supple Respiratory: Chest Non Tender, Lungs Clear, No Accessory Muscle Use, No Respiratory Distress Cardiovascular: Regular Rate, Rhythm, No Murmur, Normal Peripheral Pulses Peripheral Pulses: 2+ Dorsalis Pedis (R), 2+ Left Dors-Pedis (L), 2+ Radial Pulses (R), 2+ Radial Pulses (L) Gastrointestinal: normal bowel sounds, non tender, soft, no organomegaly; No distended, No guarding, No rebound; other (colostomy was pink and a new ostomy bag was placed recently. Midline wound clean no purulent draiage no surroundning erythema. Pt had no abdominal tenderness. ) Extremity: Normal Capillary Refill, Normal Inspection, Normal Range of Motion, Non Tender, No Calf Tenderness, Pedal Edema Neurologic/Psychiatric: Alert, Oriented x3, Normal Mood/Affect, Motor Weakness (generalized legs) Skin: Normal Color, Warm/Dry Lymphatic: No Adenopathy Results Lab Laboratory Tests 07/08/19 04:55: White Blood Count 12.0H, Red Blood Count 2.71L, Hemoglobin 7.9L, Hematocrit 26L, Mean Corpuscular Volume 95, Mean Corpuscular Hemoglobin 29, Mean Corpuscular Hemoglobin Concent 31L, Red Cell Distribution Width 16.6H, Platelet Count 308, Mean Platelet Volume 10.6H, Neutrophils (%) (Auto) 57, Lymphocytes (%) (Auto) 31, Monocytes (%) (Auto) 10, Eosinophils (%) (Auto) 1, Basophils (%) (Auto) 1, Neutrophils # (Auto) 6.8, Lymphocytes # (Auto) 3.7, Monocytes # (Auto) 1.2H, Eosinophils # (Auto) 0.1, Basophils # (Auto) 0.1, Sodium Level 141, Potassium Level 4.4, Chloride Level 108H, Carbon Dioxide Level 22, Anion Gap 11, Blood Urea Nitrogen 47H, Creatinine 1.47H, Estimat Glomerular Filtration Rate 34, BUN/Creatinine Ratio 32, Glucose Level 95, Calcium Level 9.2, Corrected Calcium 9.7, Total Bilirubin 0.2, Aspartate Amino Transf (AST/SGOT) 14, Alanine Aminotransferase (ALT/SGPT) 19, Alkaline Phosphatase 118, Total Protein 5.9L, Albumin 3.4 Assessment/Plan Assessment/Plan Assessment/Plan s/p appendectomy and harrman open wound lower incision - stools have thinned out, will continue on miralax as needed. - continue with therapy - Monitor colostomy bag to make sure the bag is fully extended and not folded beneath tight clothing. - Continue with wound care - will continue to monitor patient as needed contacted if needed sooner. Pt is doing very well. Clinical Quality Measures DVT/VTE Risk/Contraindication: Risk Factor Score Per Nursin RFS Level Per Nursing on Admit: 4+=Very High NAJMA MALCOLM DO 07/08/192118: Subjective Subjective/Events-last exam Patient states doing well. NO new complaints. Continues to have wound care done. Has colostomy output. denies n/v fever sweats chills shortness fo breath or chest pain. Objective Exam General Appearance: No Apparent Distress HEENT: PERRL/EOMI Neck: Normal Inspection, Non Tender Respiratory: Chest Non Tender, No Accessory Muscle Use, No Respiratory Distress Cardiovascular: Regular Rate, Rhythm Gastrointestinal: non tender, soft, other (colostomy was pink Midline wound clean no purulent draiage no surroundning erythema. Pt had no abdominal tenderness. ) Extremity: Normal Capillary Refill Neurologic/Psychiatric: Alert, Oriented x3, Normal Mood/Affect Skin: Normal Color, Warm/Dry Lymphatic: No Adenopathy Assessment/Plan Assessment/Plan Assessment/Plan s/p open appendectomy and Barker procedure wound lower portion midline incision continue wound care continue medical management no surgical intervention will sign off call if questions or needed Supervisory-Addendum Brief Verification & Attestation Participated in pt care: history, MDM, physical Personally performed: exam, history, MDM, supervision of care Care discussed with: Medical Student Procedures: n/a Results interpretation: Verified all documentation Verification and Attestation of Medical Student E/M Service A medical student performed and documented this service in my presence. I reviewed and verified all information documented by the medical student and made modifications to such information, when appropriate. I personally performed the physical exam and medical decision making. Najma Malcolm, Jul 08, 2019,21:19 [facility] Jul 08, 2019 08:52 NAJMA CHAPARRO DO Jul 08, 2019 21:19 POS
--- NOTE | 2019-07-08 09:36 | Progress Note ---
[facility] 07/08/19 0936: Progress Note CC: R Hip replacement, Sciatica, Perforated bowel/resection/colostomy Barriers: Pt reports having sciatica pain at night in her right leg She states she is able to get out of bed and walk using a walker without difficulty She is unable to get into bed due to weakness in her legs and not being able to lift them into bed She states her son in law is getting her a lift chair to help her be able sleep at night She also reports getting a bed appliance that helps her to be able to get into the bed as well She states she lives with her daughter in an in-law apartment that has 3 steps down to her kitchen She has not tried to use the steps in therapy yet and would like be able to try them before going home She reports being able to get on and off the toilet by herself She reports that the pain and weakness have not gotten better since she has been in therapy She also reports having some trouble with her colostomy bag leaking which has caused her more issues recently SALLY NEWELL DO 07/08/192026: Supervisory-Addendum Brief Verification & Attestation Participated in pt care: history, MDM, physical Personally performed: exam, history, MDM, supervision of care Care discussed with: Medical Student Procedures: n/a Results interpretation: Verified all documentation Verification and Attestation of Medical Student E/M Service A medical student performed and documented this service in my presence. I reviewed and verified all information documented by the medical student and made modifications to such information, when appropriate. I personally performed the physical exam and medical decision making. Sally Newell, Jul 08, 2019,20:27 [facility] Jul 08, 2019 09:36 SALLY AMARO DO Jul 08, 2019 20:27 POS
--- NOTE | 2019-07-08 10:30 | Occupational Ther Daily Note ---
OT Current Status-Daily Note Subjective Pt seen in bed, no pain, agreeable to OT tx session, states desire for shower. Nursing notified, nursing advises to bath with dressing on abdomen, nursing changes post-shower. Mental Status/Objective Patient Orientation: Normal For Age ADL-Treatment Therapy Code Descriptions/Definitions Functional [place] Measure: 0=Not Assessed/NA 4=Minimal Assistance 1=Total Assistance 5=Supervision or Setup 2=Maximal Assistance 6=Modified [place] 3=Moderate Assistance 7=Complete IndependenceSCALE: Activities may be completed with or without assistive devices. 5-Ekzbcexlvp-hopjlod completes the activity by him/herself with no assistance from a helper. 5-Set-up or Clean-up Assistance-helper sets up or cleans up; patient completes activity. [place] assists only prior to or following the activity. 4-Supervision or Touching Assistance-helper provides verbal cues and/or touching/steadying and/or contact guard assistance as patient completes activity. Assistance may be provided throughout the activity or intermittently. 3-Partial/Moderate Assistance-helper does LESS THAN HALF the effort. [place] lifts, holds or supports trunk or limbs, but provides less than half the effort. 2-Substantial/Maximal Assistance-helper does MORE THAN HALF the effort. [place] lifts or holds trunk or limbs and provides more than half the effort. 7-Oscvijtid-yoaqqz does ALL the effort. Patient does none of the effort to complete the activity. Or, the assistance of 2 or more helpers is required for the patient to complete the activity. If activity was not attempted, code reason: 7-Patient Refused. 9-Not Applicable-not attempted and the patient did not perform the activity before the current illness, exacerbation or injury. 10-Not Attempted due to Environmental Limitations-(lack of equipment, weather restraints, etc.). 88-Not Attempted due to Medical Conditions or Safety Concerns. Eating (QC): 6 Oral Hygiene (QC): 4 (SUP in stance using FWW during oral hygiene at sink.) Shower/Bathe Self (QC): 4 (SUP during showeringSBA during stance for bottom/ chelsie washing. Pt able to reach all areas.) Upper Body Dressing (QC): 6 Lower Body Dressing (QC): 4 (SBA in stance to pull up pants.) Toileting Hygiene (QC): 6 Toilet Transfer (QC): 4 (SUP) On/ off footwear: QC 6 with use of sock aide. Other Treatment Pt completes ADLs in room. Pt walks with FWW to therapy gym, completes 10 minutes with moderate resistance on arm bike. pt does not demonstrate SOB or c/o fatigue. Pt ambulates back to room, brushes teeth in stance and returns to recliner chair. Pt left in recliner, all needs met, call light in reach. Education OT Patient Education: Correct positioning, Exercise program, Modified ADL techniques, Purpose of tx/functional activities, Safety issues, Transfer techniques, Use of adapted equipment Teaching Recipient: Patient Teaching Methods: Demonstration, Discussion Response to Teaching: Verbalize Understanding, Return Demonstration OT Short Term Goals Short Term Goals Upper Body Dressing(FIM): 4 (met) Lower Body Dressing(FIM): 3 (met) Toileting(FIM): 2 (met) Transfers (B,C,W/C) (FIM): 3 (met) Additional Short Term Goals: 1-Demonstrate ADL Tasks, 2-Verbalize Understanding, 3-ImproveStrength/[place]uyita 1=Demonstrate adherence to instructed precautions during ADL tasks. 2=Patient will verbalize/demonstrate understanding of assistive devices/modifications for ADL. 3=Patient will improve strength/tolerance for activity to enable patient to perform ADL's. OT [facility] Goals Service Team Leader Goals Time Frame: Jul 11, 2019 Eating (QC): 6 (met) Oral Hygiene (QC): 6 Shower/Bathe Self (QC): 5 Upper Body Dressing (QC): 6 (met) Lower Body Dressing (QC): 4 (met) On/Off Footwear (QC): 6 (met) Toileting Hygiene (QC): 4 (met) Toilet/Commode Transfer (QC): 6 Additional Goals: 1-Demonstrate ADL Tasks, 2-Verbalize Understanding, 3- ImproveStrength/Chuyita 1=Demonstrate adherence to instructed precautions during ADL tasks. 2=Patient will verbalize/demonstrate understanding of assistive rohini chanelle/modifications for ADL. 3=Patient will improve strength/tolerance for activity to enable patient to perform ADL's. OT Education/Plan Problem List/Assessment Assessment: Decreased Activ Tolerance, Decreased UE Strength, Impaired Funct Balance, Impaired I ADL's, Impaired Self-Care Skills Discharge Recommendations Plan/Recommendations: Continue POC Therapy Discharge Recommendati: Intermittent Supervision Treatment Plan/Plan of Care Treatment,Training & Education: Yes Patient would benefit from OT for education, treatment and training to promote independence in ADL's, mobility, safety and/or upper extremity function for ADL's. Plan of Care: ADL Retraining, Caregiver Training, Concurrent Therapy, Functional Mobility, Group Exercise/Act as Ind, UE Funct Exercise/Act, W/C Management Training Treatment Duration: Jul 11, 2019 Frequency: At least 5 of 7 days/Wk (IRF) Estimated Hrs Per Day: 1.5 hours per day Agreement: Yes Rehab Potential: Fair Time/GCodes Start Time: 09:00 Stop Time: 10:00 Total Time Billed (hr/min): 60 Billed Treatment Time 1, ADL 3(45), EX (15)= 60 CHRYSTAL HOPE OTR Jul 08, 2019 10:30 POS
[2019-07-08] MEDS ORDERED: predniSONE 5 MG TAB PO NR (12:15)
--- NOTE | 2019-07-08 14:32 | Physical Therapy Daily Note ---
PT Daily Note-Current Subjective Pt. agrees to Rx. Comments that she wonders why she is so weak randy in hip flexors. Pt. was educated regarding myopathies after critical illness etc. Pt. wants to learn exercises she can do indep in bed and chair to help her weaknesses Pain Location: No Pain Reported Mental Status Patient Orientation: Normal For Age Transfers SCALE: Activities may be completed with or without assistive devices. 8-Ghrhdhybhs-elwhpvv completes the activity by him/herself with no assistance from a helper. 5-Set-up or Clean-up Assistance-helper sets up or cleans up; patient completes activity. [place] assists only prior to or following the activity. 4-Supervision or Touching Assistance-helper provides verbal cues and/or touching/steadying and/or contact guard assistance as patient completes activity. Assistance may be provided throughout the activity or intermittently. 3-Partial/Moderate Assistance-helper does LESS THAN HALF the effort. [place] lifts, holds or supports trunk or limbs, but provides less than half the effort. 2-Substantial/Maximal Assistance-helper does MORE THAN HALF the effort. [place] lifts or holds trunk or limbs and provides more than half the effort. 0-Yypetunlp-intrzi does ALL the effort. Patient does none of the effort to complete the activity. Or, the assistance of 2 or more helpers is required for the patient to complete the activity. If activity was not attempted, code reason: 7-Patient Refused. 9-Not Applicable-not attempted and the patient did not perform the activity before the current illness, exacerbation or injury. 10-Not Attempted due to Environmental Limitations-(lack of equipment, weather restraints, etc.). 88-Not Attempted due to Medical Conditions or Safety Concerns. Transfers (B, C, W/C): 3 Roll Left to Right (QC): 4 Sit to Lying (QC): 3 Sit to Stand (QC): 4 pt. requires min to mod assist LEs in to and out of bed Weight Bearing Right Lower Extremity: Right Full Weight Bearing Left Lower Extremity: Left Full Weight Bearing Gait Training Does the Patient Walk?: Yes Gait: 5 Walk 10 feet (QC): 5 Walk 50 ft with 2 Turns(QC): 5 Walk 150 ft (QC): 5 Walking 10ft/uneven surface-QC: 88 Gait Persons Needed: 1 Gait Assistive Device: FWW slow, no LOB, moderate wt bearing on FWW, fatigue after approx 140 ft Stair Training Stair Training: Handrails/: 2 handrails #of Steps: 2 4 Steps (QC): 88 12 Steps (QC): 88 Stairs: Pattern: Step to Level of Assist: 4 pt. unable to lift LE high enough to clear step , has to circumduct foot and leg over small pink step inside parallel bars to initiate step training Balance Picking up an Object (QC): 88 Exercises Supine Ex: Bridging, Ankle pumps, Quad Set, Rolling, Glut sets, Heel Slides, Short Arc Quads, Scooting, Straight leg raise (ssist), Hip abd/add (assist) Supine Reps: 20 Seated Therapy Exercises: Ankle pumps, Sit to stand, Long arc quads, Hip flexion Seated Reps: 15 Standing: Heel/toe raises, Marching, Sit to Stand Standing Reps: 10 Treatments focused on hip flexion strengthening in sup sit and standing Assessment Current Status: Good Progress PT Short Term Goals Short Term Goals Time Frame: Jun 29, 2019 Wheelchair Distance: 50' PT [facility] Goals Capacitor Inspector Goals PT Capacitor Inspector Goals Time Frame: Jul 19, 2019 Sit to Lying (QC): 5 Lying-Sitting on Side/Bed(QC): 5 Sit to Stand (QC): 5 Roll Left to Right (QC): 5 Chair/Ibo-fj-Vvkii Xfer(QC): 5 Car Transfer (QC): 5 Does the Patient Walk: Yes Distance: 150' Walk 10 feet (QC): 4 (CGA) Walk 10ft-Uneven Surface(QC): 4 (CGA) Walk 50ft with 2 Turns (QC): 4 (CGA) Gait Assistive Device: FWW Does the Pt use WC or Scooter?: No 1 Step (curb) (QC): 3 (Mildred) PT Plan Treatment/Plan Treatment Plan: Continue Plan of Care Treatment Plan: Bed Mobility, Education, Functional Activity Chuyita, Functional Strength, Group Therapy, Gait, Safety, Therapeutic Exercise, Transfers Treatment Duration: Jul 19, 2019 Frequency: At least 5 of 7 days/Wk (IRF) Estimated Hrs Per Day: 1.5 hours per day Patient and/or Family Agrees t: Yes Safety Risks/Education Patient Education: Gait Training, Transfer Techniques, Steps, Correct Positioning, Disease Process, Safety Issues Teaching Recipient: Patient Teaching Methods: Demonstration, Discussion Response to Teaching: Verbalize Understanding, Return Demonstration, Reinforcement Needed Time/GCodes Time In: 1100 Time Out: 1200 Total Billed Treatment Time: 60 Total Billed Treatment 1,EX30m,GT15m,FA15m DAR CHANEY FRENCH CORD BINDER Jul 08, 2019 14:32 POS
--- NOTE | 2019-07-08 14:46 | NUR ---
provided prayer and Communion.
--- NOTE | 2019-07-08 14:46 | Therapy Group Daily Note ---
Therapy Daily Group Note Patient Education Topic Other List Below (memory, handwashing) Exercises LE Seated Exercise, UE Exercise Session Ratio (pt:therapist): 4:1 Goal of Session: Memory Strategies, UE/LE Strengthing, Other (list) (handwashing) Goal Met for this Session: Yes Pt Benefit of Group: Contributions to Others, F/U Use of Strategies @Home, Increased Functional Strength, Improved Cognition, Recognition of Peers, Socialization Other/Notes Pt ambulated with FWW to [facility] for OT/PT group. Group consisted of introductions (name, building born in, makes you proud), socialization, B UE/LE seated exercises, education for handwashing and memory. Pt introduced self appropriately and actively listened to peers. Pt demonstrated ability to complete exercises without out difficulty. Pt acknowledged understanding of educational topics by giving personal strategies and ideas. Pt was able to match images during a memory activity and assisted peers when needed. After therapy, pt sitting in recliner with call light/phone in reach. All needs met in room. Pt requested nrsg to come to room to check on colostomy, reported to nrsg. Start Time: 13:00 Stop Time: 14:15 Total Billed Treatment Time: 75 Total Billed Treatment 1-GRP SPENECR PALUMBO Jul 08, 2019 14:46 POS
[2019-07-08 16:01] VITALS: BP 108/66
--- NOTE | 2019-07-08 16:38 | NUR ---
Message left with Dr Gómez in regards to increased sciatic nerve pain. Waiting for return call
[2019-07-08] MEDS: ENOXAPARIN 40 MG/0.4 ML (LOVENOX) SYR SC SCH (17:24)
--- NOTE | 2019-07-08 20:29 | PM&R Progress Note ---
Subjective HPI/CC On Admission Date Seen by Provider: Jul 08, 2019 Time Seen by Provider: 08:15 Subjective/Events-last exam Sciatic issue will be addressed by the PCP Lift chair will be obtained for home use White count is 12 due to the steroids Hgb 7.9 Creatinine 1.47 Overall feels like she is doing well No SOB 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 with transition coach of Systems General: Fatigue Musculoskeletal: back pain Objective Exam Vital Signs Vital Signs Date Time Temp Pulse Resp B/P (MAP) Pulse Ox O2 Delivery O2 Flow Rate FiO2 07/08/19 16:01 37.0 71 16 108/66 (80) 98 Room Air Capillary Refill : Less Than 3 Seconds General Appearance: No Apparent Distress, WD/WN, Chronically ill, Obese HEENT: PERRL/EOMI, Normal ENT Inspection, Pharynx Normal Neck: Full Range of Motion, Normal Inspection, Non Tender, Supple Respiratory: Chest Non Tender, Lungs Clear, No Accessory Muscle Use, No Respiratory Distress Cardiovascular: Regular Rate, Rhythm, No Murmur, Normal Peripheral Pulses Gastrointestinal: Normal Bowel Sounds, No Pulsatile Mass, Non Tender, Soft Back: Normal Inspection, No CVA Tenderness, No Vertebral Tenderness Extremity: Normal Capillary Refill, Normal Inspection, Normal Range of Motion, Non Tender, No Calf Tenderness, Pedal Edema Neurologic/Psychiatric: Alert, Oriented x3, Normal Mood/Affect, Motor Weakness (generalized legs) Skin: Normal Color, Warm/Dry Lymphatic: No Adenopathy Results/Procedures Lab Laboratory Tests 07/08/19 04:55 Patient resulted labs reviewed. FIM Transfers Therapy Code Descriptions/Definitions Functional [place] Measure: 0=Not Assessed/NA 4=Minimal Assistance 1=Total Assistance 5=Supervision or Setup 2=Maximal Assistance 6=Modified [place] 3=Moderate Assistance 7=Complete IndependenceSCALE: Activities may be completed with or without assistive devices. 0-Rsmbcywipy-gnzyoin completes the activity by him/herself with no assistance from a helper. 5-Set-up or Clean-up Assistance-helper sets up or cleans up; patient completes activity. [place] assists only prior to or following the activity. 4-Supervision or Touching Assistance-helper provides verbal cues and/or touching/steadying and/or contact guard assistance as patient completes activity. Assistance may be provided throughout the activity or intermittently. 3-Partial/Moderate Assistance-helper does LESS THAN HALF the effort. [place] lifts, holds or supports trunk or limbs, but provides less than half the effort. 2-Substantial/Maximal Assistance-helper does MORE THAN HALF the effort. [place] lifts or holds trunk or limbs and provides more than half the effort. 6-Vcpsnsszl-vxcdib does ALL the effort. Patient does none of the effort to complete the activity. Or, the assistance of 2 or more helpers is required for the patient to complete the activity. If activity was not attempted, code reason: 7-Patient Refused. 9-Not Applicable-not attempted and the patient did not perform the activity before the current illness, exacerbation or injury. 10-Not Attempted due to Environmental Limitations-(lack of equipment, weather restraints, etc.). 88-Not Attempted due to Medical Conditions or Safety Concerns. Transfers (B, C, W/C) (FIM): 3 Roll Left to Right (QC): 4 Sit to Lying (QC): 3 Sit to Stand (QC): 4 Chair/Rzv-re-Lwowz Xfer(QC): 4 Car Transfer (QC): 88 Gait Training Does the Patient Walk?: Yes Gait (FIM): 5 Distance: 200', 100' Walk 10 feet (QC): 5 Walk 50 ft with 2 Turns(QC): 5 Walk 150 ft (QC): 5 Walking 10ft/uneven surface-QC: 88 Gait Persons Needed: 1 Gait Assistive Device: FWW Wheelchair Training Does the Pt Use a Wheelchair?: No Distance: 50' Wheel 50 ft with 2 turns (QC): 3 (modA) Wheel 150 ft (QC): 9 Type of Wheelchair: Manual Stair Training Stair Training: Handrails/: 2 handrails #of Steps: 2 1 Step (curb) (QC): 88 4 Steps (QC): 88 12 Steps (QC): 88 Stairs: Pattern: Step to Level of Assist: 4 Balance Picking up an Object (QC): 88 ADL-Treatment Eating (QC): 6 Oral Hygiene (QC): 4 (SUP in stance using FWW during oral hygiene at sink.) Shower/Bathe Self (QC): 4 (SUP during showeringSBA during stance for bottom/ chelsie washing. Pt able to reach all areas.) Upper Body Dressing (QC): 6 Lower Body Dressing (QC): 4 (SBA in stance to pull up pants.) On/Off Footwear (QC): 1 (TD, unable to reach top of socks) Toileting Hygiene (QC): 6 Toilet Transfer (QC): 4 (SUP) Assessment/Plan Assessment and Plan Assess & Plan/Chief Complaint Assessment: Myopathy with debility Status post anasarca 40 pounds of diuresis at [place] New colostomy status Hypertension Volume overload with edema Severe anemia with iron deficiency ordered iron infusions Nausea with pain medication will start giving snack before meds given Sciatica right sided Plan: Checked meds and labs Inpatient rehabilitation protocol but is slower pace of 11/03 Monitor nausea Supportive care Food before pain pill IV iron infusions ordered PCP to manage the right sided sciatica but seems to be getting worse at night (1) Myopathy Assessment & Plan: inpatient rehab (2) HFrEF (heart failure with reduced ejection fraction) Status: Acute Qualifiers: Heart failure chronicity: chronic Qualified Codes: I50.22 - Chronic systolic (congestive) heart failure (3) Hypothyroid Status: Chronic Assessment & Plan: continue levothyroxine (4) Acute on chronic kidney failure Status: Acute (5) Diverticulitis of intestine with perforation Status: Acute Assessment & Plan: s/p surgery 05/30/19 (6) Hypertension Qualifiers: Hypertension type: essential hypertension Qualified Codes: I10 - Essential (primary) hypertension (7) Anemia of chronic disease (8) Iron deficiency anemia Assessment & Plan: iron infusions (9) Right sided sciatica MATT NEWELL DO Jul 08, 2019 20:28 POS
[2019-07-08] MEDS: SIMvastatin 40 MG (ZOCOR) TAB PO SCH (20:50)
[2019-07-08] MEDS: MELATONIN 3 MG TABLET PO SCH (20:50)
[2019-07-09] MEDS: HYDROcodone/APAP 5 MG/325 MG (LORTAB) TAB PO PRN ×3 (04:38→20:08)
[2019-07-09 05:55] VITALS: BP 177/83
[2019-07-09] MEDS: LEVOTHYROXINE 50 MCG (LEVOTHROID) TAB PO SCH (06:16)
[2019-07-09] MEDS: PANTOPRAZOLE 40 MG (PROTONIX) TAB PO SCH (06:16)
[2019-07-09] MEDS: ONDANSETRON 4 MG (ZOFRAN) ORAL DISSOLVE TAB PO PRN (08:05)
--- NOTE | 2019-07-09 08:14 | Physical Therapy Daily Note ---
PT Daily Note-Current Subjective Pt agreeable to PT session, states she is feeling a little nauseated this morning, nsg is aware and present when pt reported. Pt voicing concern that she needs more emphasis on PT instead of OT. Discussed importance and benefits of having OT also. Discussed talking to OT, PT and Dr about her concerns. States she feels she needs most to all concentration on legs. Discussed pt learning to change her colostomy herself, pt stating "it's not time for that yet". Encouraged pt that it could help to be learning now, early on, so that she is very comfortable with it by the time she discharges home. Pain Numeric Pain Scale: 4 Comment: BLE's Appearance Upon arrival, pt supine in bed with HOB elevated, awake and alert with nurse present. Pt's colostomy opened and leaking from stoma, nursing arrived and colostomy parts and bandaging had to be changed. Pt sitting EOB with nursing at end of session. Mental Status Patient Orientation: Person, Place, Time, Eyes Open, Situation Attachments: Saline Lock, Colostomy/Ileostomy Transfers SCALE: Activities may be completed with or without assistive devices. 1-Kyswfanhnq-dhlossx completes the activity by him/herself with no assistance from a helper. 5-Set-up or Clean-up Assistance-helper sets up or cleans up; patient completes activity. [place] assists only prior to or following the activity. 4-Supervision or Touching Assistance-helper provides verbal cues and/or touching/steadying and/or contact guard assistance as patient completes activity. Assistance may be provided throughout the activity or intermittently. 3-Partial/Moderate Assistance-helper does LESS THAN HALF the effort. [place] lifts, holds or supports trunk or limbs, but provides less than half the effort. 2-Substantial/Maximal Assistance-helper does MORE THAN HALF the effort. [place] lifts or holds trunk or limbs and provides more than half the effort. 8-Jatpkjqpo-ofsgub does ALL the effort. Patient does none of the effort to complete the activity. Or, the assistance of 2 or more helpers is required for the patient to complete the activity. If activity was not attempted, code reason: 7-Patient Refused. 9-Not Applicable-not attempted and the patient did not perform the activity before the current illness, exacerbation or injury. 10-Not Attempted due to Environmental Limitations-(lack of equipment, weather restraints, etc.). 88-Not Attempted due to Medical Conditions or Safety Concerns. Roll Left to Right (QC): 5 (use of bedrails) Sit to Lying (QC): 4 (supine to sit, HOB elevated, use of bedrail) Sit to Stand (QC): 4 (CGA, bed height slightly elevated) Weight Bearing Right Lower Extremity: Right Full Weight Bearing Left Lower Extremity: Left Full Weight Bearing Exercises Supine Ex: Ankle pumps (20), Quad Set (skilled verb inst and tactile cueing RLE to improve quad contraction), Glut sets (20), Heel Slides (2x10, AROM LLE, AAROM RLE), Straight leg raise (BLE's requiring AAROM to clear bed, 2x10), Hip abd/add (2x10, RLE AROM, LLE requiring AAROM only for ADD) Supine Reps: 20 ((+) hip IR/ER) Seated Therapy Exercises: Sit to stand Treatments education, safety, bed mobility, transfers, ex, strength, activity tolerance, functional mobility Assessment Current Status: Fair Progress morning session time decreased due to colostomy issues PT Short Term Goals Short Term Goals Time Frame: Jun 29, 2019 Wheelchair Distance: 50' PT Dental Equipment Technician Goals Intermediate Goals PT Intermediate Goals Time Frame: Jul 19, 2019 Sit to Lying (QC): 5 Lying-Sitting on Side/Bed(QC): 5 Sit to Stand (QC): 5 Roll Left to Right (QC): 5 Chair/Myo-zs-Xntki Xfer(QC): 5 Car Transfer (QC): 5 Does the Patient Walk: Yes Distance: 150' Walk 10 feet (QC): 4 (CGA) Walk 10ft-Uneven Surface(QC): 4 (CGA) Walk 50ft with 2 Turns (QC): 4 (CGA) Gait Assistive Device: FWW Does the Pt use WC or Scooter?: No 1 Step (curb) (QC): 3 (Mildred) PT Plan Treatment/Plan Treatment Plan: Continue Plan of Care Treatment Plan: Bed Mobility, Education, Functional Activity Chuyita, Functional Strength, Group Therapy, Gait, Safety, Therapeutic Exercise, Transfers Treatment Duration: Jul 19, 2019 Frequency: At least 5 of 7 days/Wk (IRF) Estimated Hrs Per Day: 1.5 hours per day Patient and/or Family Agrees t: Yes Safety Risks/Education Patient Education: Transfer Techniques, Correct Positioning, Safety Issues Teaching Recipient: Patient Teaching Methods: Discussion Response to Teaching: Verbalize Understanding Time/GCodes Time In: 800 Time Out: 845 Total Billed Treatment Time: 45 Total Billed Treatment 1 visit, FA x25 min, EX x20 min VERA PORTILLO PTA Jul 09, 2019 08:14 POS
--- NOTE | 2019-07-09 08:29 | PM&R Progress Note ---
Subjective HPI/CC On Admission Date Seen by Provider: Jul 09, 2019 Time Seen by Provider: 08:30 Subjective/Events-last exam Less packing is required in the wound. Sciatic seems to be manageable. Unsure how she can really do stairs since that was not successful yesterday. Very difficult overall and she is on the verge of needing 24/7 nursing care at a facility rather than going home so will discuss that at the team meeting tomorrow. 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 with automatic operator of Systems General: Fatigue Musculoskeletal: back pain Objective Exam Vital Signs Vital Signs Date Time Temp Pulse Resp B/P (MAP) Pulse Ox O2 Delivery O2 Flow Rate FiO2 07/09/19 16:22 36.6 67 16 118/66 (83) 96 Room Air Capillary Refill : Less Than 3 Seconds General Appearance: No Apparent Distress, WD/WN, Chronically ill, Obese HEENT: PERRL/EOMI, Normal ENT Inspection, Pharynx Normal Neck: Full Range of Motion, Normal Inspection, Non Tender, Supple Respiratory: Chest Non Tender, Lungs Clear, Normal Breath Sounds, No Accessory Muscle Use, No Respiratory Distress Cardiovascular: Regular Rate, Rhythm Gastrointestinal: Normal Bowel Sounds, No Pulsatile Mass, Non Tender, Soft Back: Normal Inspection, No CVA Tenderness, No Vertebral Tenderness Extremity: Normal Capillary Refill Neurologic/Psychiatric: Alert, Oriented x3, No Motor/Sensory Deficits, Normal Mood/Affect, Motor Weakness Skin: Normal Color, Warm/Dry Lymphatic: No Adenopathy Results/Procedures Lab Patient resulted labs reviewed. FIM Transfers Therapy Code Descriptions/Definitions Functional [place] Measure: 0=Not Assessed/NA 4=Minimal Assistance 1=Total Assistance 5=Supervision or Setup 2=Maximal Assistance 6=Modified [place] 3=Moderate Assistance 7=Complete IndependenceSCALE: Activities may be completed with or without assistive devices. 3-Qembahfefg-gamepao completes the activity by him/herself with no assistance from a helper. 5-Set-up or Clean-up Assistance-helper sets up or cleans up; patient completes activity. [place] assists only prior to or following the activity. 4-Supervision or Touching Assistance-helper provides verbal cues and/or touching/steadying and/or contact guard assistance as patient completes activity. Assistance may be provided throughout the activity or intermittently. 3-Partial/Moderate Assistance-helper does LESS THAN HALF the effort. [place] lifts, holds or supports trunk or limbs, but provides less than half the effort. 2-Substantial/Maximal Assistance-helper does MORE THAN HALF the effort. [place] lifts or holds trunk or limbs and provides more than half the effort. 5-Xkbamlepa-elwryc does ALL the effort. Patient does none of the effort to complete the activity. Or, the assistance of 2 or more helpers is required for the patient to complete the activity. If activity was not attempted, code reason: 7-Patient Refused. 9-Not Applicable-not attempted and the patient did not perform the activity before the current illness, exacerbation or injury. 10-Not Attempted due to Environmental Limitations-(lack of equipment, weather restraints, etc.). 88-Not Attempted due to Medical Conditions or Safety Concerns. Transfers (B, C, W/C) (FIM): 3 Roll Left to Right (QC): 4 Sit to Lying (QC): 3 Sit to Stand (QC): 4 Chair/Zjk-hn-Ssjso Xfer(QC): 4 Car Transfer (QC): 88 Gait Training Does the Patient Walk?: Yes Gait (FIM): 5 Distance: 200', 100' Walk 10 feet (QC): 5 Walk 50 ft with 2 Turns(QC): 5 Walk 150 ft (QC): 5 Walking 10ft/uneven surface-QC: 88 Gait Persons Needed: 1 Gait Assistive Device: FWW Wheelchair Training Does the Pt Use a Wheelchair?: No Distance: 50' Wheel 50 ft with 2 turns (QC): 3 (modA) Wheel 150 ft (QC): 9 Type of Wheelchair: Manual Stair Training Stair Training: Handrails/: 2 handrails #of Steps: 2 1 Step (curb) (QC): 88 4 Steps (QC): 88 12 Steps (QC): 88 Stairs: Pattern: Step to Level of Assist: 4 Balance Picking up an Object (QC): 88 ADL-Treatment Eating (QC): 6 Oral Hygiene (QC): 4 (SUP in stance using FWW during oral hygiene at sink.) Shower/Bathe Self (QC): 4 (SUP during showeringSBA during stance for bottom/ chelsie washing. Pt able to reach all areas.) Upper Body Dressing (QC): 6 Lower Body Dressing (QC): 4 (SBA in stance to pull up pants.) On/Off Footwear (QC): 1 (TD, unable to reach top of socks) Toileting Hygiene (QC): 6 Toilet Transfer (QC): 4 (SUP) Assessment/Plan Assessment and Plan Assess & Plan/Chief Complaint Assessment: Myopathy with debility Status post anasarca 40 pounds of diuresis at [place] New colostomy status Hypertension Volume overload with edema Severe anemia with iron deficiency ordered iron infusions Nausea with pain medication will start giving snack before meds given Sciatica right sided Plan: Checked meds and labs Inpatient rehabilitation protocol but is slower pace of 11/03 Monitor nausea Supportive care Food before pain pill IV iron infusions ordered PCP to manage the right sided sciatica but seems to be getting worse at night Discuss dispo tomorrow in team meeting (1) Myopathy Assessment & Plan: inpatient rehab (2) HFrEF (heart failure with reduced ejection fraction) Status: Acute Qualifiers: Heart failure chronicity: chronic Qualified Codes: I50.22 - Chronic systolic (congestive) heart failure (3) Hypothyroid Status: Chronic Assessment & Plan: continue levothyroxine (4) Acute on chronic kidney failure Status: Acute (5) Diverticulitis of intestine with perforation Status: Acute Assessment & Plan: s/p surgery 05/30/19 (6) Hypertension Qualifiers: Hypertension type: essential hypertension Qualified Codes: I10 - Essential (primary) hypertension (7) Anemia of chronic disease (8) Iron deficiency anemia Assessment & Plan: iron infusions (9) Right sided sciatica MATT NEWELL DO Jul 09, 2019 08:29 POS
--- NOTE | 2019-07-09 10:18 | NUR ---
provided prayer and Communion.
[2019-07-09] MEDS: lisINopril 10 MG (PRINIVIL) TABLET PO SCH (10:27)
[2019-07-09] MEDS: DOCUSATE SODIUM 100 MG (COLACE) CAP PO SCH (10:27)
[2019-07-09] MEDS: KCL 20 MEQ TAB (K-DUR) PO SCH (10:27)
--- NOTE | 2019-07-09 10:27 | Progress Note ---
[facility] 1027: Progress Note CC: Leg weakness, Sciatica, Pt reports still having trouble with her colostomy bag She was disappointed that yesterday during therapy she was unable to complete the stairs She states she just has no strength to lift up her foot high enough to use the steps She states that the steps at her house are not as tall as the stairs here She is able to walk using the walker without assistance She is unable to get her legs into bed due to the flexion weakness I did perform some OMT to her lower extremity in an effort to relieve some of her sciatica pain and assess her strength/ ROM MATT NEWELL DO 07/09/192028: Supervisory-Addendum Brief Verification & Attestation Participated in pt care: history, MDM, physical Personally performed: exam, history, MDM, supervision of care Care discussed with: Medical Student Procedures: n/a Results interpretation: Verified all documentation Verification and Attestation of Medical Student E/M Service A medical student performed and documented this service in my presence. I revi ewed and verified all information documented by the medical student and made modifications to such information, when appropriate. I personally performed the physical exam and medical decision making. Matt Newell, Jul 09, 2019,20:29 PEÑA BAILEY Jul 09, 2019 10:27 MATT AMARO DO Jul 09, 2019 20:29 POS
[2019-07-09] MEDS: GABAPENTIN 300 MG (NEURONTIN) CAP PO SCH ×3 (10:28→20:07)
[2019-07-09] MEDS: SENNA W/DOCUSATE (SENOKOT S) TABLET PO SCH ×2 (10:28→20:07)
--- NOTE | 2019-07-09 11:10 | Occupational Ther Daily Note ---
OT Current Status-Daily Note Subjective Pt sitting in chair, reports 4/10 pain in bilateral LE. Pt states she feels her lower body is weak and needs more focus. Educated pt on role of OT, plan of care, and focus on attaining functional goals. Pt states understanding and is agreeable to treatment. ADL-Treatment In-depth discussion regarding home safety and DME needs. Pt states she will be getting a lift chair before discharge. Pt states she is interested in a toilet riser and and bed rail. Discussed different options and where to obtain equipment. Pt reports having a FWW, hip kit, and shower bench already. Pt performed sit to stand x5 from chair with SBA to min assist as pt fatigues. Skilled cues for hand placement and technique. Pt requests to practice getting in/out of bed. Pt transferred to EOB with SBA using FWW. Pt performed sit <-> supine x3 trials. Pt has difficulty lifting bilateral LE onto bed, requires assist to complete. Pt able to perform supine to sit with SBA using bed rails. Gait to therapy gym with FWW, slow pace. Pt performed sit to stand x5 from EOB with SBA to increase LE strength needed for transfers. Pt fatigues with activity and requires rest breaks throughout session. Pt performed UE task with resistance pegs with 1# weights in place on bilateral UE while standing to increase strength, balance, and activity tolerance. Pt required two seated rest breaks secondary to fatigue. Was able to stand for [id number] each trial. Pt returned to room, transferred to bedside commode over toilet with SBA. Pt able to complete toileting hygiene and clothing management with SBA. Pt stood at sink to wash hands without assist. Combed hair independently while standing. Pt reports fatigue and requests to sit in recliner chair after session. All needs met. Therapy Code Descriptions/Definitions Functional [place] Measure: 0=Not Assessed/NA 4=Minimal Assistance 1=Total Assistance 5=Supervision or Setup 2=Maximal Assistance 6=Modified [place] 3=Moderate Assistance 7=Complete IndependenceSCALE: Activities may be completed with or without assistive devices. 5-Dlujlgjjtm-zxuzcyl completes the activity by him/herself with no assistance from a helper. 5-Set-up or Clean-up Assistance-helper sets up or cleans up; patient completes activity. [place] assists only prior to or following the activity. 4-Supervision or Touching Assistance-helper provides verbal cues and/or touching/steadying and/or contact guard assistance as patient completes activity. Assistance may be provided throughout the activity or intermittently. 3-Partial/Moderate Assistance-helper does LESS THAN HALF the effort. [place] li fts, holds or supports trunk or limbs, but provides less than half the effort. 2-Substantial/Maximal Assistance-helper does MORE THAN HALF the effort. [place] lifts or holds trunk or limbs and provides more than half the effort. 0-Jqkmubdxv-zxzsie does ALL the effort. Patient does none of the effort to complete the activity. Or, the assistance of 2 or more helpers is required for the patient to complete the activity. If activity was not attempted, code reason: 7-Patient Refused. 9-Not Applicable-not attempted and the patient did not perform the activity before the current illness, exacerbation or injury. 10-Not Attempted due to Environmental Limitations-(lack of equipment, weather restraints, etc.). 88-Not Attempted due to Medical Conditions or Safety Concerns. Toilet Transfer (QC): 5 Education OT Patient Education: Rehab process Teaching Recipient: Patient Teaching Methods: Discussion Response to Teaching: Verbalize Understanding OT Short Term Goals Short Term Goals Upper Body Dressing(FIM): 4 (met) Lower Body Dressing(FIM): 3 (met) Toileting(FIM): 2 (met) Transfers (B,C,W/C) (FIM): 3 (met) Additional Short Term Goals: 1-Demonstrate ADL Tasks, 2-Verbalize Understanding, 3-ImproveStrength/[place] 1=Demonstrate adherence to instructed precautions during ADL tasks. 2=Patient will verbalize/demonstrate understanding of assistive devices/modifications for ADL. 3=Patient will improve strength/tolerance for activity to enable patient to perform ADL's. OT Fci Goals Fci Goals Time Frame: Jul 11, 2019 Eating (QC): 6 (met) Oral Hygiene (QC): 6 Shower/Bathe Self (QC): 5 Upper Body Dressing (QC): 6 (met) Lower Body Dressing (QC): 4 (met) On/Off Footwear (QC): 6 (met) Toileting Hygiene (QC): 4 (met) Toilet/Commode Transfer (QC): 6 Additional Goals: 1-Demonstrate ADL Tasks, 2-Verbalize Understanding, 3- ImproveStrength/[place] 1=Demonstrate adherence to instructed precautions during ADL tasks. 2=Patient will verbalize/demonstrate understanding of assistive devices/modifications for ADL. 3=Patient will improve strength/tolerance for activity to enable patient to perform ADL's. OT Education/Plan Discharge Recommendations Plan/Recommendations: Continue POC Treatment Plan/Plan of Care Patient would benefit from OT for education, treatment and training to promote independence in ADL's, mobility, safety and/or upper extremity function for ADL 's. Plan of Care: ADL Retraining, Caregiver Training, Concurrent Therapy, Functional Mobility, Group Exercise/Act as Ind, UE Funct Exercise/Act, W/C Management Training Treatment Duration: Jul 11, 2019 Frequency: At least 5 of 7 days/Wk (IRF) Estimated Hrs Per Day: 1.5 hours per day Agreement: Yes Rehab Potential: Fair Time/GCodes Start Time: 09:15 Stop Time: 10:45 Total Time Billed (hr/min): 90 Billed Treatment Time 1 visit, ADL(15minutes), EX(15minutes), FAx4(60minutes) DEEPAK COLLINS OT Jul 09, 2019 11:10 POS
[2019-07-09] MEDS ORDERED: IRON SUCROSE 200 MG/10 ML (VENOFER) VIAL IV ONE (11:41)
[2019-07-09] MEDS: IRON SUCROSE 200 MG/10 ML (VENOFER) VIAL IV SCH (11:47)
--- NOTE | 2019-07-09 12:55 | Progress Note ---
Subjective Subjective Date Seen by Provider: Jul 09, 2019 Time Seen by Provider: 12:50 Patient is doing alright overall- would like to continue inpatient to gain her strength with rehab. Sciatica is worsening as the dose of prednisone has decreased. Review of Systems General: Fatigue Pulmonary: No Dyspnea, No Cough Cardiovascular: No: Chest Pain, Palpitations Gastrointestinal: No: Nausea, Vomiting, Abdominal Pain Musculoskeletal: back pain Neurological: Weakness Objective Exam Vital Signs Vital Signs Date Time Temp Pulse Resp B/P (MAP) Pulse Ox O2 Delivery O2 Flow Rate FiO2 07/09/19 05:55 36.8 77 18 177/83 (114) 99 Room Air 07/08/19 21:00 Room Air 07/08/19 16:01 37.0 71 16 108/66 (80) 98 Room Air I & O 07/09/19 07:00 Intake Total 1060 ml Balance 1060 ml General Appearance: No Apparent Distress HEENT: PERRL/EOMI Neck: Normal Inspection, Non Tender Respiratory: Chest Non Tender, No Accessory Muscle Use, No Respiratory Distress Cardiovascular: Regular Rate, Rhythm Gastrointestinal: Normal Bowel Sounds, No Pulsatile Mass, Non Tender, Soft Back: Normal Inspection, No CVA Tenderness, No Vertebral Tenderness Extremity: Normal Capillary Refill Neurologic/Psychiatric: Alert, Oriented x3, Normal Mood/Affect Skin: Normal Color, Warm/Dry Lymphatic: No Adenopathy Assessment/Plan Assessment/Plan Assessment and Plan 07/03/19 -acute on chronic kidney disease- holding lisinopril for 2 days- stopped furosemide. Starting bumex 1mg 05/04/19- (may change it to every other day). -Right sciatica- we will do prednisone 50mg x1, 40mg, 30, 20, 10, 5mg taper as a similar schedule gave her good relief for about a month. 07/05/19- creatinine noted to be even more elevated from her baseline- diuresis stopped, nephrotoxic agents held. K held. IVF LR started with resulting improvement in her Cr. Will continue to work on improving kidney function. Lovenox renally dosed. Blood pressure noted to be low contributing to her kidney issues. Holding DAVID I. -follow with labs on Monday07/08/19 07/09/19- Kidney function/Cr at baseline- will add bumex 1mg daily prn for weight gain >3 pounds in 1 day or 3 pounds in 5 days. K restarted. Monitor lytes. monitor blood pressure. May resume lisinopril. sciatica pain was controlled with prednisone but the taper has ended; will try lidocaine patches daily and find the right spot- starting over [id number] area of right buttocks. She is still requiring inpatient rehab and wound care/colostomy care. Dispo: slowly improving- I agree with patient for her to stay until 07/17/19 to increase her odds of returning safely home. Likely d/c with HH when she is ready. Problems: (1) Myopathy Assessment & Plan: inpatient rehab (2) HFrEF (heart failure with reduced ejection fraction) Qualifiers: Qualified Codes: I50.22 - Chronic systolic (congestive) heart failure (3) Hypothyroid Assessment & Plan: continue levothyroxine (4) Acute on chronic kidney failure (5) Diverticulitis of intestine with perforation Assessment & Plan: s/p surgery 05/30/19 (6) Hypertension Qualifiers: Qualified Codes: I10 - Essential (primary) hypertension (7) Anemia of chronic disease (8) Iron deficiency anemia Assessment & Plan: iron infusions (9) Right sided sciatica Clinical Quality Measures DVT/VTE Risk/Contraindication: Risk Factor Score Per Nursin RFS Level Per Nursing on Admit: 4+=Very High MADYSON HERMAN MD Jul 09, 2019 12:55 POS
--- NOTE | 2019-07-09 14:55 | Physical Therapy Daily Note ---
PT Daily Note-Current Subjective Patient agrees to PT. Patient is willing to work and strengthen LEs. Reports no pain. Pain Numeric Pain Scale: 0-No Pain Location: No Pain Reported Mental Status Patient Orientation: Normal For Age Transfers SCALE: Activities may be completed with or without assistive devices. 5-Fvldkcniky-gshzkbd completes the activity by him/herself with no assistance from a helper. 5-Set-up or Clean-up Assistance-helper sets up or cleans up; patient completes activity. [place] assists only prior to or following the activity. 4-Supervision or Touching Assistance-helper provides verbal cues and/or touching/steadying and/or contact guard assistance as patient completes activity. Assistance may be provided throughout the activity or intermittently. 3-Partial/Moderate Assistance-helper does LESS THAN HALF the effort. [place] lifts, holds or supports trunk or limbs, but provides less than half the effort. 2-Substantial/Maximal Assistance-helper does MORE THAN HALF the effort. [place] lifts or holds trunk or limbs and provides more than half the effort. 7-Qzajhnfvt-uwzpsj does ALL the effort. Patient does none of the effort to complete the activity. Or, the assistance of 2 or more helpers is required for the patient to complete the activity. If activity was not attempted, code reason: 7-Patient Refused. 9-Not Applicable-not attempted and the patient did not perform the activity before the current illness, exacerbation or injury. 10-Not Attempted due to Environmental Limitations-(lack of equipment, weather restraints, etc.). 88-Not Attempted due to Medical Conditions or Safety Concerns. Sit to Stand (QC): 4 Weight Bearing Right Lower Extremity: Right Full Weight Bearing Left Lower Extremity: Left Full Weight Bearing Gait Training Does the Patient Walk?: Yes Gait: 5 Distance: 200' Walk 10 feet (QC): 5 Walk 50 ft with 2 Turns(QC): 5 Walk 150 ft (QC): 5 Gait Assistive Device: FWW Exercises Seated Therapy Exercises: Ankle pumps, Long arc quads, Hip flexion, Hip abd/add Seated Reps: 10 NuStep Minutes: 12 NuStep Workload: 4 Assessment Patient performed seated exercises while in recliner and tolerated exercises well, noting less strength in RLE most noticeable with hip abd/add. Nursing packed wound during tx. Patient stood from chair with recliner elevated to ease standing and minimal assistance. Required multiple attempts at standing before finding the appropriate chair height that provided enough leverage for patient. Ambulated 125' to therapy gym with FWW. Patient completed 12 minutes on the NuStep at workload 4 to strengthen BLEs and work on mobility. Patient then ambulated 200' with FWW, requiring one short rest break. Patient positioned in recliner with legs elevated at conclusion of treatment. PT Short Term Goals Short Term Goals Time Frame: Jun 29, 2019 Wheelchair Distance: 50' PT Horologist Goals Horologist Goals PT Horologist Goals Time Frame: Jul 19, 2019 Sit to Lying (QC): 5 Lying-Sitting on Side/Bed(QC): 5 Sit to Stand (QC): 5 Roll Left to Right (QC): 5 Chair/Qnb-cb-Pbqwi Xfer(QC): 5 Car Transfer (QC): 5 Does the Patient Walk: Yes Distance: 150' Walk 10 feet (QC): 4 (CGA) Walk 10ft-Uneven Surface(QC): 4 (CGA) Walk 50ft with 2 Turns (QC): 4 (CGA) Gait Assistive Device: FWW Does the Pt use WC or Scooter?: No 1 Step (curb) (QC): 3 (Mildred) PT Plan Treatment/Plan Treatment Plan: Continue Plan of Care Treatment Plan: Bed Mobility, Education, Functional Activity [place], Functional Strength, Group Therapy, Gait, Safety, Therapeutic Exercise, Transfers Treatment Duration: Jul 19, 2019 Frequency: At least 5 of 7 days/Wk (IRF) Estimated Hrs Per Day: 1.5 hours per day Patient and/or Family Agrees t: Yes Time/GCodes Time In: 1355 Time Out: 1440 Total Billed Treatment Time: 45 Total Billed Treatment 1 visit EX x2 30min FA 15min RYLAND APONTE PT Jul 09, 2019 14:55 POS
[2019-07-09 16:22] VITALS: BP 118/66
[2019-07-09] MEDS: ENOXAPARIN 40 MG/0.4 ML (LOVENOX) SYR SC SCH (18:30)
[2019-07-09] MEDS: MELATONIN 3 MG TABLET PO SCH (20:07)
[2019-07-09] MEDS: SIMvastatin 40 MG (ZOCOR) TAB PO SCH (20:08)
[2019-07-10] MEDS: HYDROcodone/APAP 5 MG/325 MG (LORTAB) TAB PO PRN ×3 (00:08→19:05)
[2019-07-10 05:09] VITALS: BP 123/70
[2019-07-10] MEDS: LEVOTHYROXINE 50 MCG (LEVOTHROID) TAB PO SCH (06:42)
[2019-07-10] MEDS: PANTOPRAZOLE 40 MG (PROTONIX) TAB PO SCH (06:42)
[2019-07-10] MEDS: ONDANSETRON 4 MG (ZOFRAN) ORAL DISSOLVE TAB PO PRN (08:53)
[2019-07-10] MEDS ORDERED: BUMETANIDE 1 MG (BUMEX) TAB PO PRN (09:00)
[2019-07-10] MEDS: DOCUSATE SODIUM 100 MG (COLACE) CAP PO SCH (09:41)
[2019-07-10] MEDS: GABAPENTIN 300 MG (NEURONTIN) CAP PO SCH ×3 (09:41→20:01)
[2019-07-10] MEDS: LIDOCAINE 4% (SALONPAS) PATCH TOP SCH (09:41)
[2019-07-10] MEDS: POLYETHYLENE GLYCOL 17 GM (MIRALAX) PACK PO PRN (09:41)
[2019-07-10] MEDS: SENNA W/DOCUSATE (SENOKOT S) TABLET PO SCH ×2 (09:41→20:02)
[2019-07-10] MEDS: lisINopril 10 MG (PRINIVIL) TABLET PO SCH (09:41)
--- NOTE | 2019-07-10 10:01 | NUR ---
provided prayer and Communion.
--- NOTE | 2019-07-10 10:11 | NUR ---
Notified by staff that patient is interested in purchasing a lift chair for use at home. Provided information to patient regarding lift chairs and possible reimbursement from Medicare if medical criteria is met. Faxed required paperwork to Dr. Cody Gómez requesting he review and complete if appropriate.
--- NOTE | 2019-07-10 10:24 | Progress Note ---
[facility] 07/10/19 1024: Progress Note CC: Right hip fracture, Sciatica, Leg weakness She reports not sleeping very well last night due to increased pain in her right leg She was started on a Lidocaine patch that will hopefully help with the pain at night She denies having any pain during the day She states that she is still able to walk well unassisted using the walker She is unable to lift/flex her legs up in order to be able to use the stairs or get her feet into bed She does think she is getting a little stronger each day She state she would be very excited to be able to lift her feet high enough to use the stairs again SALLY NEWELL DO 07/10/19 2011: Supervisory-Addendum Brief Verification & Attestation Participated in pt care: history, MDM, physical Personally performed: exam, history, MDM, supervision of care Care discussed with: Medical Student Procedures: n/a Results interpretation: Verified all documentation Verification and Attestation of Medical Student E/M Service A medical student performed and documented this service in my presence. I reviewed and verified all information documented by the medical student and made modifications to such information, when appropriate. I personally performed the physical exam and medical decision making. Sally Newell, Jul 10, 2019,20:11 PEÑA BAILEY Jul 10, 2019 10:24 SALLY AMARO DO Jul 10, 2019 20:11 POS
--- NOTE | 2019-07-10 11:26 | Occupational Ther Daily Note ---
OT Current Status-Daily Note Subjective Pt in bed, agrees to treatment. Pt reports 3/10 pain in right LE. ADL-Treatment Pt supine to sit with SBA and increased time. Sit to stand with supervision. Gait to restroom with FWW. Transfer to [facility] over toilet using grab bar for safety. Pt able to complete toileting hygiene and clothing management. Stood at sink to wash hands. Pt's colostomy was leaking and RN states she needs to change it. Pt transferred to bed with FWW. Sit to supine with assist for LE. RN assumed care to change colostomy. Upon return to room pt requested to change clothes. Declined bathing at this time. Doff shirt without assist. Pt doffed pants with SBA. Don pullover shirt with set up. Pt used seismic prospecting supervisor to thread bilateral LE into pant legs. Stood with supervision for balance during pant hike. Grooming tasks completed standing at sink. Pt brushed teeth, combed hair, and washed face with modified independence. Pt fatigues with activity and requires occasional rest breaks during ADL tasks. Therapy Code Descriptions/Definitions Functional [place] Measure: 0=Not Assessed/NA 4=Minimal Assistance 1=Total Assistance 5=Supervision or Setup 2=Maximal Assistance 6=Modified [place] 3=Moderate Assistance 7=Complete IndependenceSCALE: Activities may be completed with or without assistive devices. 6-Uvfsichzil-ftuctyp completes the activity by him/herself with no assistance from a helper. 5-Set-up or Clean-up Assistance-helper sets up or cleans up; patient completes activity. [place] assists only prior to or following the activity. 4-Supervision or Touching Assistance-helper provides verbal cues and/or touching/steadying and/or contact guard assistance as patient completes activity. Assistance may be provided throughout the activity or intermittently. 3-Partial/Moderate Assistance-helper does LESS THAN HALF the effort. [place] lifts, holds or supports trunk or limbs, but provides less than half the effort. 2-Substantial/Maximal Assistance-helper does MORE THAN HALF the effort. [place] lifts or holds trunk or limbs and provides more than half the effort. 1-Rfipsxggd-cgdrlk does ALL the effort. Patient does none of the effort to complete the activity. Or, the assistance of 2 or more helpers is required for the patient to complete the activity. If activity was not attempted, code reason: 7-Patient Refused. 9-Not Applicable-not attempted and the patient did not perform the activity before the current illness, exacerbation or injury. 10-Not Attempted due to Environmental Limitations-(lack of equipment, weather restraints, etc.). 88-Not Attempted due to Medical Conditions or Safety Concerns. Oral Hygiene (QC): 6 Upper Body Dressing (QC): 5 Lower Body Dressing (QC): 4 Toileting Hygiene (QC): 5 Toilet Transfer (QC): 5 Other Treatment Gait to therapy gym with FWW, slow pace. Rest break after ambulation. Pt completed standing arm arc activity with bilateral UE to increase activity tolerance, balance and strength. Pt stood [id number] for 2 minutes each, rest break in between. Pt completed graded clothespin task while standing to increase boiling tub operator/pinch strength, activity tolerance and balance. Pt has difficulty with highest resistance clothespins, but is able to complete with increased time. Pt returned to room, sitting in chair with needs met after session. OT Short Term Goals Short Term Goals Upper Body Dressing(FIM): 4 (met) Lower Body Dressing(FIM): 3 (met) Toileting(FIM): 2 (met) Transfers (B,C,W/C) (FIM): 3 (met) Additional Short Term Goals: 1-Demonstrate ADL Tasks, 2-Verbalize Understanding, 3-ImproveStrength/Chuyita 1=Demonstrate adherence to instructed precautions during ADL tasks. 2=Patient will verbalize/demonstrate understanding of assistive devices/modifications for ADL. 3=Patient will improve strength/tolerance for activity to enable patient to perform ADL's. OT Reimbursement Representative Goals Residential Goals Time Frame: Jul 11, 2019 Eating (QC): 6 (met) Oral Hygiene (QC): 6 Shower/Bathe Self (QC): 5 Upper Body Dressing (QC): 6 (met) Lower Body Dressing (QC): 4 (met) On/Off Footwear (QC): 6 (met) Toileting Hygiene (QC): 4 (met) Toilet/Commode Transfer (QC): 6 Additional Goals: 1-Demonstrate ADL Tasks, 2-Verbalize Understanding, 3- ImproveStrength/[place]uy[place] 1=Demonstrate adherence to instructed precautions during ADL tasks. 2=Patient will verbalize/demonstrate understanding of assistive devices/modifications for ADL. 3=Patient will improve strength/tolerance for activity to enable patient to perform ADL's. OT Education/Plan Discharge Recommendations Plan/Recommendations: Continue POC Treatment Plan/Plan of Care Patient would benefit from OT for education, treatment and training to promote independence in ADL's, mobility, safety and/or upper extremity function for ADL's. Plan of Care: ADL Retraining, Caregiver Training, Concurrent Therapy, Functional Mobility, Group Exercise/Act as Ind, UE Funct Exercise/Act, W/C Management Training Treatment Duration: Jul 11, 2019 Frequency: At least 5 of 7 days/Wk (IRF) Estimated Hrs Per Day: 1.5 hours per day Agreement: Yes Rehab Potential: Fair Time/GCodes Start Time: 08:00 ([id number]) Stop Time: 09:30 ([id number]) Total Time Billed (hr/min): 65 Billed Treatment Time 1 visit, ADLx3(45minutes), FA(20minutes) DEEPAK COLLINS OT Jul 10, 2019 11:26 POS
--- NOTE | 2019-07-10 12:01 | PM&R Progress Note ---
Subjective HPI/CC On Admission Date Seen by Provider: Jul 10, 2019 Time Seen by Provider: 08:15 Subjective/Events-last exam Lidocaine patch was ordered by PCP for sciatica Nausea after eating but Zofran helps Colostomy is difficult for the pt to manage Family training for colostomy care will need to be done before DC Miralax on a more daily administration will be addressed by Dr. Santos DC plan for 07/19/19 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 with mucker [place] of Systems General: Fatigue Gastrointestinal: Constipation Objective Exam Vital Signs Vital Signs Date Time Temp Pulse Resp B/P (MAP) Pulse Ox O2 Delivery O2 Flow Rate FiO2 07/10/19 17:37 37.0 72 18 145/72 (96) 99 Room Air Capillary Refill : Less Than 3 Seconds General Appearance: No Apparent Distress, WD/WN, Chronically ill, Obese HEENT: PERRL/EOMI, Normal ENT Inspection, Pharynx Normal Neck: Full Range of Motion, Normal Inspection, Non Tender, Supple Respiratory: Chest Non Tender, Lungs Clear, Normal Breath Sounds, No Accessory Muscle Use, No Respiratory Distress Cardiovascular: Regular Rate, Rhythm Gastrointestinal: Normal Bowel Sounds, No Pulsatile Mass, Non Tender, Soft Back: Normal Inspection, No CVA Tenderness, No Vertebral Tenderness Extremity: Normal Capillary Refill Neurologic/Psychiatric: Alert, Oriented x3, No Motor/Sensory Deficits, Normal Mood/Affect, Motor Weakness Skin: Normal Color, Warm/Dry Lymphatic: No Adenopathy Results/Procedures Lab Patient resulted labs reviewed. FIM Transfers Therapy Code Descriptions/Definitions Functional [place] Measure: 0=Not Assessed/NA 4=Minimal Assistance 1=Total Assistance 5=Supervision or Setup 2=Maximal Assistance 6=Modified [place] 3=Moderate Assistance 7=Complete IndependenceSCALE: Activities may be completed with or without assistive devices. 1-Guzzcmmslr-gvfputq completes the activity by him/herself with no assistance from a helper. 5-Set-up or Clean-up Assistance-helper sets up or cleans up; patient completes activity. [place] assists only prior to or following the activity. 4-Supervision or Touching Assistance-helper provides verbal cues and/or touching/steadying and/or contact guard assistance as patient completes activity. Assistance may be provided throughout the activity or intermittently. 3-Partial/Moderate Assistance-helper does LESS THAN HALF the effort. [place] lifts, holds or supports trunk or limbs, but provides less than half the effort. 2-Substantial/Maximal Assistance-helper does MORE THAN HALF the effort. [place] lifts or holds trunk or limbs and provides more than half the effort. 2-Diqzqcfwf-tptffz does ALL the effort. Patient does none of the effort to complete the activity. Or, the assistance of 2 or more helpers is required for the patient to complete the activity. If activity was not attempted, code reason: 7-Patient Refused. 9-Not Applicable-not attempted and the patient did not perform the activity before the current illness, exacerbation or injury. 10-Not Attempted due to Environmental Limitations-(lack of equipment, weather restraints, etc.). 88-Not Attempted due to Medical Conditions or Safety Concerns. Transfers (B, C, W/C) (FIM): 3 Roll Left to Right (QC): 5 (use of bedrails) Sit to Lying (QC): 4 (supine to sit, HOB elevated, use of bedrail) Sit to Stand (QC): 4 Chair/Jig-dk-Enrgi Xfer(QC): 4 Car Transfer (QC): 88 Gait Training Does the Patient Walk?: Yes Gait (FIM): 5 Distance: 200' Walk 10 feet (QC): 5 Walk 50 ft with 2 Turns(QC): 5 Walk 150 ft (QC): 5 Walking 10ft/uneven surface-QC: 88 Gait Persons Needed: 1 Gait Assistive Device: FWW Wheelchair Training Does the Pt Use a Wheelchair?: No Distance: 50' Wheel 50 ft with 2 turns (QC): 3 (modA) Wheel 150 ft (QC): 9 Type of Wheelchair: Manual Stair Training Stair Training: Handrails/: 2 handrails #of Steps: 2 1 Step (curb) (QC): 88 4 Steps (QC): 88 12 Steps (QC): 88 Stairs: Pattern: Step to Level of Assist: 4 Balance Picking up an Object (QC): 88 ADL-Treatment Eating (QC): 6 Oral Hygiene (QC): 6 Shower/Bathe Self (QC): 4 (SUP during showeringSBA during stance for bottom/ chelsie washing. Pt able to reach all areas.) Upper Body Dressing (QC): 5 Lower Body Dressing (QC): 4 On/Off Footwear (QC): 1 (TD, unable to reach top of socks) Toileting Hygiene (QC): 5 Toilet Transfer (QC): 5 Assessment/Plan Assessment and Plan Assess & Plan/Chief Complaint Assessment: Myopathy with debility Status post anasarca 40 pounds of diuresis at [place] New colostomy status Hypertension Volume overload with edema Severe anemia with iron deficiency ordered iron infusions Nausea with pain medication will start giving snack before meds given Sciatica right sided Plan: Checked meds and labs Inpatient rehabilitation protocol but is slower pace of 15/7 Monitor nausea Supportive care Food before pain pill IV iron infusions ordered PCP to manage the right sided sciatica but seems to be getting worse at night so hopefully the Lidocaine patch will help DC next week (1) Myopathy Assessment & Plan: inpatient rehab (2) HFrEF (heart failure with reduced ejection fraction) Status: Acute Qualifiers: Heart failure chronicity: chronic Qualified Codes: I50.22 - Chronic systolic (congestive) heart failure (3) Hypothyroid Status: Chronic Assessment & Plan: continue levothyroxine (4) Acute on chronic kidney failure Status: Acute (5) Diverticulitis of intestine with perforation Status: Acute Assessment & Plan: s/p surgery 05/30/19 (6) Hypertension Qualifiers: Hypertension type: essential hypertension Qualified Codes: I10 - Essential (primary) hypertension (7) Anemia of chronic disease (8) Iron deficiency anemia Assessment & Plan: iron infusions (9) Right sided sciatica MATT NEWELL DO Jul 10, 2019 12:01 POS
--- NOTE | 2019-07-10 12:30 | Physical Therapy Daily Note ---
PT Daily Note-Current Subjective Patient is ready to work LEs during PT and states that walking feels the best to her. Patient states she has no pain. Pain Numeric Pain Scale: 0-No Pain Location: No Pain Reported Mental Status Patient Orientation: Person, Place, Time, Situation Transfers SCALE: Activities may be completed with or without assistive devices. 0-Kzfyfllyfc-znjezyp completes the activity by him/herself with no assistance from a helper. 5-Set-up or Clean-up Assistance-helper sets up or cleans up; patient completes activity. [place] assists only prior to or following the activity. 4-Supervision or Touching Assistance-helper provides verbal cues and/or touching/steadying and/or contact guard assistance as patient completes activity. Assistance may be provided throughout the activity or intermittently. 3-Partial/Moderate Assistance-helper does LESS THAN HALF the effort. [place] lifts, holds or supports trunk or limbs, but provides less than half the effort. 2-Substantial/Maximal Assistance-helper does MORE THAN HALF the effort. [place] lifts or holds trunk or limbs and provides more than half the effort. 5-Pxgsvlcfa-qypxbr does ALL the effort. Patient does none of the effort to complete the activity. Or, the assistance of 2 or more helpers is required for the patient to complete the activity. If activity was not attempted, code reason: 7-Patient Refused. 9-Not Applicable-not attempted and the patient did not perform the activity before the current illness, exacerbation or injury. 10-Not Attempted due to Environmental Limitations-(lack of equipment, weather restraints, etc.). 88-Not Attempted due to Medical Conditions or Safety Concerns. Transfers (B, C, W/C): 3 Sit to Lying (QC): 3 Sit to Stand (QC): 4 CGA standing from elevated height; mod assist with transfer sit to supine or supine to sit with LE movement and sitting up upper body Weight Bearing Right Lower Extremity: Right Full Weight Bearing Left Lower Extremity: Left Full Weight Bearing Gait Training Does the Patient Walk?: Yes Gait: 5 Distance: 150'; 100' Walk 10 feet (QC): 5 Walk 50 ft with 2 Turns(QC): 5 Walk 150 ft (QC): 5 Gait Assistive Device: FWW Exercises Supine Ex: Ankle pumps, Quad Set, Glut sets, Heel Slides, Short Arc Quads, Hip abd/add Supine Reps: 10 Seated Therapy Exercises: Long arc quads, Hip flexion, Hip abd/add Seated Reps: [address] Ex=Flex, Abd, Ext, Marching Standing Reps: 10 NuStep Minutes: 15 NuStep Workload: 4 Assessment Patient able to stand from chair without CGA as long as chair height is elevated. Patient ambulated 100' then 150' with FWW without assistance. Patient tolerated supine and seated exercises well, requiring assistance with RLE hip abd/add and heel slides. Patient able to perform SAQ without assistance. NuStep for 15 minutes to improve LE strengthening and mobility, which patient is most concerned about. Patient performed multiple STS from various mat and chair heights throughout session without difficulty. Performed standing marches and 3 way hip movements in // bars without difficulty or fatigue. Patient seated in chair at conclusion of treatment and expressed desire to attempt a step at next treatment session. PT Short Term Goals Short Term Goals Time Frame: Jun 29, 2019 Wheelchair Distance: 50' PT College Athlete Goals Correction Goals PT Correction Goals Time Frame: Jul 19, 2019 Sit to Lying (QC): 5 Lying-Sitting on Side/Bed(QC): 5 Sit to Stand (QC): 5 Roll Left to Right (QC): 5 Chair/Piz-rz-Zwqif Xfer(QC): 5 Car Transfer (QC): 5 Does the Patient Walk: Yes Distance: 150' Walk 10 feet (QC): 4 (CGA) Walk 10ft-Uneven Surface(QC): 4 (CGA) Walk 50ft with 2 Turns (QC): 4 (CGA) Gait Assistive Device: FWW Does the Pt use WC or Scooter?: No 1 Step (curb) (QC): 3 ([place]) PT Plan Treatment/Plan Treatment Plan: Continue Plan of Care Treatment Plan: Bed Mobility, Education, Functional Activity Chuyita, Functional Strength, Group Therapy, Gait, Safety, Therapeutic Exercise, Transfers Treatment Duration: Jul 19, 2019 Frequency: At least 5 of 7 days/Wk (IRF) Estimated Hrs Per Day: 1.5 hours per day Patient and/or Family Agrees t: Yes Safety Risks/Education Patient Education: Gait Training, Transfer Techniques Teaching Recipient: Patient Teaching Methods: Demonstration, Discussion Response to Teaching: Verbalize Understanding, Return Demonstration Time/GCodes Time In: 1030 Time Out: 1200 Total Billed Treatment Time: 90 Total Billed Treatment 1 visit GT x2 25min FA x2 30min EX x2 35min DAR CHANEY FINGERPRINT TECHNICIAN Jul 10, 2019 12:30 POS
--- NOTE | 2019-07-10 13:57 | Occupational Ther Daily Note ---
OT Current Status-Daily Note Subjective Pt sitting in chair, agrees to therapy. ADL-Treatment Therapy Code Descriptions/Definitions Functional [place] Measure: 0=Not Assessed/NA 4=Minimal Assistance 1=Total Assistance 5=Supervision or Setup 2=Maximal Assistance 6=Modified [place] 3=Moderate Assistance 7=Complete IndependenceSCALE: Activities may be completed with or without assistive devices. 9-Jwnztxeife-iifxseb completes the activity by him/herself with no assistance from a helper. 5-Set-up or Clean-up Assistance-helper sets up or cleans up; patient completes activity. [place] assists only prior to or following the activity. 4-Supervision or Touching Assistance-helper provides verbal cues and/or touching/steadying and/or contact guard assistance as patient completes activity. Assistance may be provided throughout the activity or intermittently. 3-Partial/Moderate Assistance-helper does LESS THAN HALF the effort. [place] lifts, holds or supports trunk or limbs, but provides less than half the effort. 2-Substantial/Maximal Assistance-helper does MORE THAN HALF the effort. [place] lifts or holds trunk or limbs and provides more than half the effort. 0-Lqcyxukaf-rwrejb does ALL the effort. Patient does none of the effort to c omplete the activity. Or, the assistance of 2 or more helpers is required for the patient to complete the activity. If activity was not attempted, code reason: 7-Patient Refused. 9-Not Applicable-not attempted and the patient did not perform the activity before the current illness, exacerbation or injury. 10-Not Attempted due to Environmental Limitations-(lack of equipment, weather restraints, etc.). 88-Not Attempted due to Medical Conditions or Safety Concerns. Other Treatment Pt sit to stand from lift chair with min assist. Gait to therapy gym with FWW, no LOB noted. Arm bike [id number] to increase overall strength and activity tolerance needed for functional task completion. Pt completed task with minimal resistance and slow pace. No rest breaks needed. Pt completed putty activity with bilateral hands to increase dress fitter/pinch strength and manipulation skills. Pt able to remove small beads from moderate resistance therapy putty with increased time. Pt returned to room, sitting in chair with needs met after session. OT Short Term Goals Short Term Goals Upper Body Dressing(FIM): 4 (met) Lower Body Dressing(FIM): 3 (met) Toileting(FIM): 2 (met) Transfers (B,C,W/C) (FIM): 3 (met) Additional Short Term Goals: 1-Demonstrate ADL Tasks, 2-Verbalize Understanding, 3-ImproveStrength/[place]uy[place] 1=Demonstrate adherence to instructed precautions during ADL tasks. 2=Patient will verbalize/demonstrate understanding of assistive devices/modifications for ADL. 3=Patient will improve strength/tolerance for activity to enable patient to perform ADL's. OT Tree Surgeon Helper Goals Tree Surgeon Helper Goals Time Frame: Jul 11, 2019 Eating (QC): 6 (met) Oral Hygiene (QC): 6 Shower/Bathe Self (QC): 5 Upper Body Dressing (QC): 6 (met) Lower Body Dressing (QC): 4 (met) On/Off Footwear (QC): 6 (met) Toileting Hygiene (QC): 4 (met) Toilet/Commode Transfer (QC): 6 Additional Goals: 1-Demonstrate ADL Tasks, 2-Verbalize Understanding, 3- ImproveStrength/[place] 1=Demonstrate adherence to instructed precautions during ADL tasks. 2=Patient will verbalize/demonstrate understanding of assistive devices/modifications for ADL. 3=Patient will improve strength/tolerance for activity to enable patient to perform ADL's. OT Education/Plan Discharge Recommendations Plan/Recommendations: Continue POC Treatment Plan/Plan of Care Patient would benefit from OT for education, treatment and training to promote independence in ADL's, mobility, safety and/or upper extremity function for ADL's. Plan of Care: ADL Retraining, Caregiver Training, Concurrent Therapy, Functional Mobility, Group Exercise/Act as Ind, UE Funct Exercise/Act, W/C Management Training Treatment Duration: Jul 11, 2019 Frequency: At least 5 of 7 days/Wk (IRF) Estimated Hrs Per Day: 1.5 hours per day Agreement: Yes Rehab Potential: Fair Time/GCodes Start Time: 13:20 Stop Time: 13:50 Total Time Billed (hr/min): 30 Billed Treatment Time 1 visit, EXx2(30minutes) DEEPAK COLLINS OT Jul 10, 2019 13:57 POS
--- NOTE | 2019-07-10 15:47 | NUR ---
Weekly Team Conference Discussed weekly team conference with patient. Tentative discharge date has been set for 07/19/19, with recommendation for home health care nursing and PT to follow. Patient is in agreement with this plan. Recommended DME: bed rail, toilet riser and lift chair (per patient request). Informed patient that all paperwork for lift chair was faxed to Dr. Cody Gómez today. Patient was given information regarding lift chairs from [facility] in [place]. Also discussed colostomy teaching. Patient requested her daughter be included in colostomy teaching. Discussed colostomy teaching with IVAN Sandoval/education. Jaime requested patient's family bring in colostomy supplies that should have been shipped to the home so he can review supplies with patient and her family. Jaime states staff training and development manager can provide colostomy teaching with patient and her family as well.
[2019-07-10 17:37] VITALS: BP 145/72
[2019-07-10] MEDS: ENOXAPARIN 40 MG/0.4 ML (LOVENOX) SYR SC SCH (17:38)
[2019-07-10] MEDS: MELATONIN 3 MG TABLET PO SCH (20:01)
[2019-07-10] MEDS: SIMvastatin 40 MG (ZOCOR) TAB PO SCH (20:01)
[2019-07-10] MEDS: LIDOCAINE PATCH REMOVAL TP SCH (20:04)
[2019-07-11] MEDS: HYDROcodone/APAP 5 MG/325 MG (LORTAB) TAB PO PRN ×2 (01:37→08:15)
[2019-07-11 05:02] VITALS: BP 126/71
[2019-07-11] MEDS: LEVOTHYROXINE 50 MCG (LEVOTHROID) TAB PO SCH (06:10)
[2019-07-11] MEDS: PANTOPRAZOLE 40 MG (PROTONIX) TAB PO SCH (06:10)
[2019-07-11 06:12] LABS: HEMOGLOBIN 8.4 G/DL (11.5-16.0); MEAN PLATELET VOLUME 11.3 FL (7.4-10.4); RED CELL DISTRIBUTION WIDTH 17.5 % (10.0-14.5); WHITE BLOOD COUNT 10.3 10^3/uL (4.3-11.0)
[2019-07-11] MEDS: SENNA W/DOCUSATE (SENOKOT S) TABLET PO SCH ×2 (08:14→20:19)
[2019-07-11] MEDS: GABAPENTIN 300 MG (NEURONTIN) CAP PO SCH ×3 (08:14→20:19)
[2019-07-11] MEDS: LIDOCAINE 4% (SALONPAS) PATCH TOP SCH (08:15)
[2019-07-11] MEDS: POLYETHYLENE GLYCOL 17 GM (MIRALAX) PACK PO PRN (08:15)
[2019-07-11] MEDS: lisINopril 10 MG (PRINIVIL) TABLET PO SCH (08:15)
[2019-07-11] MEDS: DOCUSATE SODIUM 100 MG (COLACE) CAP PO SCH (08:15)
--- NOTE | 2019-07-11 08:56 | PM&R Progress Note ---
Subjective HPI/CC On Admission Date Seen by Provider: Jul 11, 2019 Time Seen by Provider: 08:00 Subjective/Events-last exam Pt's colostomy is still giving problems. Colostomy site is an inward type of position instead of an outie which causes problems. Walking very well . Thrilled about the discharge plan for next week. Pain is well controlled . Lidocaine patch really helped the sciatica. DC plan for 07/19/19 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 with obgyn specialist of [facility] Gastro[facility]: Constipation Objective Exam Vital Signs Vital Signs Date Time Temp Pulse Resp B/P (MAP) Pulse Ox O2 Delivery O2 Flow Rate FiO2 07/11/19 17:23 36.9 66 16 121/76 (91) 96 Room Air Capillary Refill : Less Than 3 Seconds General Appearance: No Apparent Distress, WD/WN, Chronically ill, Obese HEENT: PERRL/EOMI, Normal ENT Inspection, Pharynx Normal Neck: Full Range of Motion, Normal Inspection, Non Tender, Supple Respiratory: Chest Non Tender, Lungs Clear, Normal Breath Sounds, No Accessory Muscle Use, No Respiratory Distress Cardiovascular: Regular Rate, Rhythm Gastrointestinal: Normal Bowel Sounds, No Pulsatile Mass, Non Tender, Soft Back: Normal Inspection, No CVA Tenderness, No Vertebral Tenderness Extremity: Normal Capillary Refill Neurologic/Psychiatric: Alert, Oriented x3, No Motor/Sensory Deficits, Normal Mood/Affect, Motor Weakness Skin: Normal Color, Warm/Dry Lymphatic: No Adenopathy Results/Procedures Lab Laboratory Tests 07/11/19 05:55 Patient resulted labs reviewed. FIM Transfers Therapy Code Descriptions/Definitions Functional [place] Measure: 0=Not Assessed/NA 4=Minimal Assistance 1=Total Assistance 5=Supervision or Setup 2=Maximal Assistance 6=Modified [place] 3=Moderate Assistance 7=Complete IndependenceSCALE: Activities may be completed with or without assistive devices. 7-Sduvraxseq-eihlxyy completes the activity by him/herself with no assistance from a helper. 5-Set-up or Clean-up Assistance-helper sets up or cleans up; patient completes activity. [place] assists only prior to or following the activity. 4-Supervision or Touching Assistance-helper provides verbal cues and/or touching/steadying and/or contact guard assistance as patient completes activity. Assistance may be provided throughout the activity or intermittently. 3-Partial/Moderate Assistance-helper does LESS THAN HALF the effort. [place] lifts, holds or supports trunk or limbs, but provides less than half the effort. 2-Substantial/Maximal Assistance-helper does MORE THAN HALF the effort. [place] lifts or holds trunk or limbs and provides more than half the effort. 9-Hsyypkukt-jsshlb does ALL the effort. Patient does none of the effort to complete the activity. Or, the assistance of 2 or more helpers is required for the patient to complete the activity. If activity was not attempted, code reason: 7-Patient Refused. 9-Not Applicable-not attempted and the patient did not perform the activity before the current illness, exacerbation or injury. 10-Not Attempted due to Environmental Limitations-(lack of equipment, weather restraints, etc.). 88-Not Attempted due to Medical Conditions or Safety Concerns. Transfers (B, C, W/C) (FIM): 3 Roll Left to Right (QC): 5 (use of bedrails) Sit to Lying (QC): 3 Sit to Stand (QC): 4 Chair/Ann-ia-Qxiqm Xfer(QC): 4 Car Transfer (QC): 88 Gait Training Does the Patient Walk?: Yes Gait (FIM): 5 Distance: 150'; 100' Walk 10 feet (QC): 5 Walk 50 ft with 2 Turns(QC): 5 Walk 150 ft (QC): 5 Walking 10ft/uneven surface-QC: 88 Gait Persons Needed: 1 Gait Assistive Device: FWW Wheelchair Training Does the Pt Use a Wheelchair?: No Distance: 50' Wheel 50 ft with 2 turns (QC): 3 (modA) Wheel 150 ft (QC): 9 Type of Wheelchair: Manual Stair Training Stair Training: Handrails/: 2 handrails #of Steps: 2 1 Step (curb) (QC): 88 4 Steps (QC): 88 12 Steps (QC): 88 Stairs: Pattern: Step to Level of Assist: 4 Balance Picking up an Object (QC): 88 ADL-Treatment Eating (QC): 6 Oral Hygiene (QC): 6 Shower/Bathe Self (QC): 4 (SUP during showeringSBA during stance for bottom/ p bob washing. Pt able to reach all areas.) Upper Body Dressing (QC): 5 Lower Body Dressing (QC): 4 On/Off Footwear (QC): 1 (TD, unable to reach top of socks) Toileting Hygiene (QC): 5 Toilet Transfer (QC): 5 Assessment/Plan Assessment and Plan Assess & Plan/Chief Complaint Assessment: Myopathy with debility Status post anasarca 40 pounds of diuresis at [place] New colostomy status Hypertension Volume overload with edema Severe anemia with iron deficiency ordered iron infusions Nausea with pain medication will start giving snack before meds given Sciatica right sided Plan: Checked meds and labs Inpatient rehabilitation protocol but is slower pace of 15/7 Monitor nausea Supportive care Food before pain pill IV iron infusions ordered PCP to manage the right sided sciatica but seems to be getting worse at night so hopefully the Lidocaine patch will help as it is now DC next week (1) Myopathy Assessment & Plan: inpatient rehab (2) HFrEF (heart failure with reduced ejection fraction) Status: Acute Qualifiers: Heart failure chronicity: chronic Qualified Codes: I50.22 - Chronic systolic (congestive) heart failure (3) Hypothyroid Status: Chronic Assessment & Plan: continue levothyroxine (4) Acute on chronic kidney failure Status: Acute (5) Diverticulitis of intestine with perforation Status: Acute Assessment & Plan: s/p surgery 05/30/19 (6) Hypertension Qualifiers: Hypertension type: essential hypertension Qualified Codes: I10 - Essential (primary) hypertension (7) Anemia of chronic disease (8) Iron deficiency anemia Assessment & Plan: iron infusions (9) Right sided sciatica MATT NEWELL DO Jul 11, 2019 08:56 POS
--- NOTE | 2019-07-11 09:07 | NUR ---
Notified by RN that patient continues to have problems with her colostomy leaking, requiring RN to change entire appliance up to three times a day. RN also reports that skin surrounding ostomy site is excoriated and bleeding. Contacted outpatient wound clinic for guidance on colostomy care, and was referred to [facility]. Talked with Andreas at [facility]. Andreas stated that an ostomy certified nurse from [facility] is scheduled to be in [place] on 07/12/19 to visit with some of the home health patients, and that he would see if the RN would have time to assess this patient's colostomy and provide recommendations if warranted. Andreas also stated that, in his experience, "[place] Liquid Skin Protectant" provides protection to excoriated skin and allows the colostomy appliance to adhere to the skin. Talked with pharmacy regarding availability of [place] Liquid Skin Protectant. [facility] not [facility], and cannot order, the [place] Liquid Skin Protectant. Pharmacy suggests Calmoseptine ointment or Zinc Oxide for skin barrier. RN notified of pharmacy recommendation and RN will talk with skin tanner, Jaime, regarding use of skin barrier. Left a message on patient's daughter's phone regarding delivery of ostomy supplies to the home. If ostomy supplies have been delivered to the home, requesting family to bring those supplies to the hospital for education and training.
--- NOTE | 2019-07-11 10:11 | Occupational Ther Daily Note ---
OT Current Status-Daily Note Subjective Pt seen in bed, pt agreeable to OT tx session. Pt states stiffness in BLE during transfer out of bed. Pt does not state or c/o pain throughout session once out of bed. Mental Status/Objective Patient Orientation: Normal For Age ADL-Treatment Therapy Code Descriptions/Definitions Functional [place] Measure: 0=Not Assessed/NA 4=Minimal Assistance 1=Total Assistance 5=Supervision or Setup 2=Maximal Assistance 6=Modified [place] 3=Moderate Assistance 7=Complete IndependenceSCALE: Activities may be completed with or without assistive devices. 5-Fzlptftgdv-tgwtlel completes the activity by him/herself with no assistance from a helper. 5-Set-up or Clean-up Assistance-helper sets up or cleans up; patient completes activity. [place] assists only prior to or following the activity. 4-Supervision or Touching Assistance-helper provides verbal cues and/or touching/steadying and/or contact guard assistance as patient completes activity. Assistance may be provided throughout the activity or intermittently. 3-Partial/Moderate Assistance-helper does LESS THAN HALF the effort. [place] lifts, holds or supports trunk or limbs, but provides less than half the effort. 2-Substantial/Maximal Assistance-helper does MORE THAN HALF the effort. [place] lifts or holds trunk or limbs and provides more than half the effort. 5-Ckmwgijcf-bslzeq does ALL the effort. Patient does none of the effort to complete the activity. Or, the assistance of 2 or more helpers is required for the patient to complete the activity. If activity was not attempted, code reason: 7-Patient Refused. 9-Not Applicable-not attempted and the patient did not perform the activity before the current illness, exacerbation or injury. 10-Not Attempted due to Environmental Limitations-(lack of equipment, weather restraints, etc.). 88-Not Attempted due to Medical Conditions or Safety Concerns. Eating (QC): 6 (Pt eats prior to session) Oral Hygiene (QC): 6 (Pt stands at sink and completes with IND.) Shower/Bathe Self (QC): 4 (Pt able to reach all areas with LHS, completes with SBA during stance to complete bottom washing. Pt utilizes grab bars in shower for stability) Upper Body Dressing (QC): 6 (Pt gathers clothing from closet, completes with IND.) Lower Body Dressing (QC): 4 (Pt completes while sitting on shower seat, requires physical and verbal cues to complete donning socks and pants with AE due to decreased problem solving. ) Toileting Hygiene (QC): 6 (IND) Toilet Transfer (QC): 6 (IND with FWW. ) 4- on/ off footwear: pt requires cues and intermittent assist for sock aide, unable to problem solve positioning Other Treatment Pt completes toileting tasks. Nursing present start of session, nursing notified pt of pt's colostomy blow-out. Pt states,"I just checked it and it felt fine." Pt educated on the need to begin caring for colostomy, pt agrees. Pt completes ADLs in room. Pt returns to bed, completes bed mob with mod A due to pt not being able to lift RLE into bed. Pt completes UE exercises against gravity in bed (20 reps of 3 exercises focusing on chest press, diagonals, and shoulder flexion). Pt completes UE theraband exercises with yellow theraband with moderate cues for repositioning and tension- pt completes 10 reps of biceps, back flies, triceps bilaterally. Pt's nurse present to teach pt of care of colostomy. Pt states all steps of colostomy care with nursing present, pt demonstrates cognitive ability to complete, however, not able to see where to place colostomy due to positioning on belly. Pt left in bed with nursing present, call light in reach, all needs met. Education OT Patient Education: Correct positioning, Exercise program, Home exercise program, Modified ADL techniques, Purpose of tx/functional activities, Safety issues, Use of adapted equipment Teaching Recipient: Patient Teaching Methods: Demonstration, Discussion Response to Teaching: Verbalize Understanding, Return Demonstration, Reinforcement Needed OT Short Term Goals Short Term Goals Upper Body Dressing(FIM): 4 (met) Lower Body Dressing(FIM): 3 (met) Toileting(FIM): 2 (met) Transfers (B,C,W/C) (FIM): 3 (met) Additional Short Term Goals: 1-Demonstrate ADL Tasks, 2-Verbalize Understanding, 3-ImproveStrength/Chuyita 1=Demonstrate adherence to instructed precautions during ADL tasks. 2=Patient will verbalize/demonstrate understanding of assistive devic es/modifications for ADL. 3=Patient will improve strength/tolerance for activity to enable patient to perform ADL's. 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 2=Patient will verbalize/demonstrate understanding of assistive devices /modifications for ADL. 3=Patient will improve strength/tolerance for activity to enable patient to perform ADL's. OT Education/Plan Discharge Recommendations Plan/Recommendations: Continue POC Therapy Discharge Recommendati: Intermittent Supervision Treatment Plan/Plan of Care Treatment,Training & Education: Yes Patient would benefit from OT for education, treatment and training to promote independence in ADL's, mobility, safety and/or upper extremity function for ADL's. Plan of Care: ADL Retraining, Caregiver Training, Concurrent Therapy, Functional Mobility, Group Exercise/Act as Ind, UE Funct Exercise/Act, W/C Management Training Treatment Duration: Jul 11, 2019 Frequency: At least 5 of 7 days/Wk (IRF) Estimated Hrs Per Day: 1.5 hours per day Agreement: Yes Rehab Potential: Fair Time/GCodes Start Time: 08:00 Stop Time: 09:30 Total Time Billed (hr/min): 90 Billed Treatment Time 1, ADL 4 (60), EX 2 (30)= 90 CHRYSTAL HOPE OTR Jul 11, 2019 10:11 POS
--- NOTE | 2019-07-11 11:04 | Physical Therapy Daily Note ---
PT Daily Note-Current Subjective Pt agreeable to PT session. States she would like to work on climbing steps and getting in and out of bed. Pain Numeric Pain Scale: 0-No Pain Appearance Pt supine in bed awake and alert upon arrival. At end of session, pt sitting up in recliner with call light, phone and bedside table within reach Mental Status Patient Orientation: Person, Place, Time, Eyes Open, Situation Attachments: Colostomy/Ileostomy Transfers SCALE: Activities may be completed with or without assistive devices. 3-Ugjvmwilov-skigwya completes the activity by him/herself with no assistance from a helper. 5-Set-up or Clean-up Assistance-helper sets up or cleans up; patient completes activity. [place] assists only prior to or following the activity. 4-Supervision or Touching Assistance-helper provides verbal cues and/or touching/steadying and/or contact guard assistance as patient completes activity. Assistance may be provided throughout the activity or intermittently. 3-Partial/Moderate Assistance-helper does LESS THAN HALF the effort. [place] lifts, holds or supports trunk or limbs, but provides less than half the effort. 2-Substantial/Maximal Assistance-helper does MORE THAN HALF the effort. [place] lifts or holds trunk or limbs and provides more than half the effort. 4-Odplztdri-reowfy does ALL the effort. Patient does none of the effort to complete the activity. Or, the assistance of 2 or more helpers is required for the patient to complete the activity. If activity was not attempted, code reason: 7-Patient Refused. 9-Not Applicable-not attempted and the patient did not perform the activity before the current illness, exacerbation or injury. 10-Not Attempted due to Environmental Limitations-(lack of equipment, weather restraints, etc.). 88-Not Attempted due to Medical Conditions or Safety Concerns. Roll Left to Right (QC): 4 (bedrail, verb inst) Sit to Lying (QC): 4 (bedrail, verb inst) Sit to Stand (QC): 4 (Supervision) Worked on pt transferring in and out of bed on L side of bed as this is how pt gets in and out at home Weight Bearing Right Lower Extremity: Right Full Weight Bearing Left Lower Extremity: Left Full Weight Bearing Gait Training Does the Patient Walk?: Yes Distance: 200 x2 Walk 10 feet (QC): 4 Walk 50 ft with 2 Turns(QC): 4 Walk 150 ft (QC): 4 Gait Persons Needed: 1 Gait Assistive Device: FWW fair pace, decreased step length and height, no LOB or unsteadiness Stair Training Stair Training: Handrails/: 1 handrail (BUE's on handrils) #of Steps: 1 (30 times) Stairs: Pattern: Step to (lead with LLE) Level of Assist: 4 Exercises Standing Reps: 30 (with rest breaks, step ups with LLE and BUE's on handrail or B // bars. Step ups with RLE x2) NuStep Minutes: 15 NuStep Workload: 5 (Seat 6, arms 6) Treatments education, safety, transfers, bed mobility, gait, strength, balance, functional mobility, activity tolerance, steps Assessment Current Status: Good Progress PT Short Term Goals Short Term Goals Time Frame: Jun 29, 2019 Wheelchair Distance: 50' PT Penitentiary Goals Penitentiary Goals PT Penitentiary Goals Time Frame: Jul 19, 2019 Sit to Lying (QC): 5 Lying-Sitting on Side/Bed(QC): 5 Sit to Stand (QC): 5 Roll Left to Right (QC): 5 Chair/Ffk-ew-Jccte Xfer(QC): 5 Car Transfer (QC): 5 Does the Patient Walk: Yes Distance: 150' Walk 10 feet (QC): 4 (CGA) Walk 10ft-Uneven Surface(QC): 4 (CGA) Walk 50ft with 2 Turns (QC): 4 (CGA) Gait Assistive Device: FWW Does the Pt use WC or Scooter?: No 1 Step (curb) (QC): 3 (Mildred) PT Plan Treatment/Plan Treatment Plan: Continue Plan of Care Treatment Plan: Bed Mobility, Education, Functional Activity [place], Functional Strength, Group Therapy, Gait, Safety, Therapeutic Exercise, Transfers Treatment Duration: Jul 19, 2019 Frequency: At least 5 of 7 days/Wk (IRF) Estimated Hrs Per Day: 1.5 hours per day Patient and/or Family Agrees t: Yes Safety Risks/Education Patient Education: Gait Training, Transfer Techniques, Steps, Safety Issues Teaching Recipient: Patient Teaching Methods: Demonstration, Discussion Response to Teaching: Verbalize Understanding, Return Demonstration, Reinforc ement Needed Time/GCodes Time In: 1100 Time Out: 1200 Total Billed Treatment Time: 60 Total Billed Treatment 1 visit, EX x20 min, GT x25 min, FA x15 min VERA PORTILLO COPIER REPAIR TECHNICIAN Jul 11, 2019 11:04 POS
--- NOTE | 2019-07-11 13:53 | Physical Therapy Daily Note ---
PT Daily Note-Current Subjective Pt wants to work on getting in/out of bed on the left side and practice steps. Transfers SCALE: Activities may be completed with or without assistive devices. 9-Vhjuhisfzc-aycinbu completes the activity by him/herself with no assistance from a helper. 5-Set-up or Clean-up Assistance-helper sets up or cleans up; patient completes activity. [place] assists only prior to or following the activity. 4-Supervision or Touching Assistance-helper provides verbal cues and/or touching/steadying and/or contact guard assistance as patient completes activity. Assistance may be provided throughout the activity or intermittently. 3-Partial/Moderate Assistance-helper does LESS THAN HALF the effort. [place] lifts, holds or supports trunk or limbs, but provides less than half the effort. 2-Substantial/Maximal Assistance-helper does MORE THAN HALF the effort. [place] lifts or holds trunk or limbs and provides more than half the effort. 6-Tyuwuwgrw-bmytbo does ALL the effort. Patient does none of the effort to complete the activity. Or, the assistance of 2 or more helpers is required for the patient to complete the activity. If activity was not attempted, code reason: 7-Patient Refused. 9-Not Applicable-not attempted and the patient did not perform the activity before the current illness, exacerbation or injury. 10-Not Attempted due to Environmental Limitations-(lack of equipment, weather restraints, etc.). 88-Not Attempted due to Medical Conditions or Safety Concerns. Pt is SBA with sit to stand transfers with correct sequencing and technique. Sit to supine x 2 reps with simulated like her bed set up. Pt requires min assist with each leg to get it in bed. Sup to sit EOB with SBA using bed rail. Weight Bearing Right Lower Extremity: Right Full Weight Bearing Left Lower Extremity: Left Full Weight Bearing Gait Training Pt walked 150 ft x 2 with FWW with SBA. Safe and steady, slow but without LOB or safety concerns. Stair Training up/down 2 steps using 1 handrail on the right with both hands with min assist to ascend and CGA as she descended backwards. up/down 1 step in the same technique. Pt tends to circumduct the left LE to lift it onto the step due to hip flexion weakness. Treatments Spent additional time problem solving techniques and ways to best get in/out of bed as well as steps. Assessment Current Status: Good Progress Functional gait and sit to stand improving. Persistent hip flexion weakness impairs getting into bed as well as stepping up a step. PT Short Term Goals Short Term Goals Time Frame: Jun 29, 2019 Wheelchair Distance: 50' PT [place] Supervisor Goals [place] Supervisor Goals PT Detention Goals Time Frame: Jul 19, 2019 Sit to Lying (QC): 5 Lying-Sitting on Side/Bed(QC): 5 Sit to Stand (QC): 5 Roll Left to Right (QC): 5 Chair/Chh-fr-Fymmb Xfer(QC): 5 Car Transfer (QC): 5 Does the Patient Walk: Yes Distance: 150' Walk 10 feet (QC): 4 (CGA) Walk 10ft-Uneven Surface(QC): 4 (CGA) Walk 50ft with 2 Turns (QC): 4 (CGA) Gait Assistive Device: FWW Does the Pt use WC or Scooter?: No 1 Step (curb) (QC): 3 (Mildred) PT Plan Problem List Problem List: Activity Tolerance, Functional Strength, Safety, Balance, Gait, Transfer, Bed Mobility Treatment/Plan Treatment Plan: Continue Plan of Care Treatment Plan: Bed Mobility, Education, Functional Activity Ch[place], Functional Strength, Group Therapy, Gait, Safety, Therapeutic Exercise, Transfers Treatment Duration: Jul 19, 2019 Frequency: At least 5 of 7 days/Wk (IRF) Estimated Hrs Per Day: 1.5 hours per day Patient and/or Family Agrees t: Yes Safety Risks/Education Patient Education: Transfer Techniques, Steps Teaching Recipient: Patient Teaching Methods: Demonstration, Discussion Response to Teaching: Reinforcement Needed Time/GCodes Time In: 1300 Time Out: 1338 Total Billed Treatment Time: 38 Total Billed Treatment visit FA 38 SPENCER MUÑOZ PT Jul 11, 2019 13:53 POS
--- NOTE | 2019-07-11 14:31 | NUR ---
Received a message from Andreas with [facility] in [place]. Andreas reported he left a message with Florencio Landa RN regarding assessing the colostomy tomorrow while in [place]. RN notified.
--- NOTE | 2019-07-11 15:41 | Progress Note - Surgery ---
[facility] 07/11/19 1541: Subjective Date Seen by a Provider: Jul 11, 2019 Time Seen by a Provider: 15:40 Subjective/Events-last exam Pt is alert and oriented and in no acute distress Checked colostomy and it is working great. It was pink and patent. Spoke to nursing and they stated the fecal matter was thinning out. Patient had no concerns at this time Review of Systems General: No Chills, No Night Sweats Pulmonary: No Dyspnea, No Cough Cardiovascular: No: Chest Pain, Palpitations Gastrointestinal: No: Nausea, Vomiting, Abdominal Pain Objective Exam Vital Signs Date Time Temp Pulse Resp B/P (MAP) Pulse Ox O2 Delivery O2 Flow Rate FiO2 07/11/19 09:00 Room Air 07/11/19 05:02 36.6 67 18 126/71 (89) 95 Room Air 07/10/19 20:10 Room Air 07/10/19 17:37 37.0 72 18 145/72 (96) 99 Room Air I & O 07/11/19 07:00 Intake Total 1270 ml Balance 1270 ml Capillary Refill : Less Than 3 Seconds General Appearance: No Apparent Distress, WD/WN, Chronically ill, Obese HEENT: PERRL/EOMI, Normal ENT Inspection, Pharynx Normal Neck: Full Range of Motion, Normal Inspection, Non Tender, Supple Respiratory: Chest Non Tender, Lungs Clear, Normal Breath Sounds, No Accessory Muscle Use, No Respiratory Distress Cardiovascular: Regular Rate, Rhythm Peripheral Pulses: 2+ Dorsalis Pedis (R), 2+ Left Dors-Pedis (L), 2+ Radial Pu lses (R), 2+ Radial Pulses (L) Gastrointestinal: non tender, soft, other (colostomy was pink Midline wound clean no purulent draiage no surroundning erythema. Pt had no abdominal tenderness. ) Extremity: Normal Capillary Refill Neurologic/Psychiatric: Alert, Oriented x3, No Motor/Sensory Deficits, Normal Mood/Affect, Motor Weakness Skin: Normal Color, Warm/Dry Lymphatic: No Adenopathy Results Lab Laboratory Tests 07/11/19 05:55: White Blood Count 10.3, Red Blood Count 2.83L, Hemoglobin 8.4L, Hematocrit 27L, Mean Corpuscular Volume 96, Mean Corpuscular Hemoglobin 30, Mean Corpuscular Hemoglobin Concent 31L, Red Cell Distribution Width 17.5H, Platelet Count 268, Mean Platelet Volume 11.3H, Creatinine 1.40H Assessment/Plan Assessment/Plan Assessment/Plan s/p appendectomy and harrman open wound lower incision - stools have thinned out and colostomy is draining nicely. Nursing can give miralax as needed. . - continue with therapy - Monitor colostomy bag to make sure the bag is fully extended and not folded beneath tight clothing. - Continue with wound care - will see pt prn contact if needed sooner Clinical Quality Measures DVT/VTE Risk/Contraindication: Risk Factor Score Per Nursin RFS Level Per Nursing on Admit: 4+=Very High NAJMA SANTOS DO 07/11/192136: Subjective Subjective/Events-last exam No issues at this time. Colostomy functioning without issues at this time since stool has thinned out. When thicker was having slight issue with appliance. Objective Exam General Appearance: No Apparent Distress HEENT: PERRL/EOMI Neck: Non Tender Respiratory: Chest Non Tender, No Accessory Muscle Use, No Respiratory Distress Cardiovascular: Regular Rate, Rhythm Gastrointestinal: non tender, soft, other (colostomy was pink Midline wound clean no purulent draiage no surroundning erythema. Pt had no abdominal tenderness. ) Extremity: Normal Capillary Refill Neurologic/Psychiatric: Alert, Oriented x3 Skin: Normal Color Lymphatic: No Adenopathy Assessment/Plan Assessment/Plan Assessment/Plan keep bowel thinner if patient tolerates better scheduled miralax call if needed Supervisory-Addendum Brief Verification & Attestation Participated in pt care: history, MDM, physical Personally performed: exam, history, MDM, supervision of care Care discussed with: Medical Student Procedures: n/a Results interpretation: Verified all documentation Verification and Attestation of Medical Student E/M Service A medical student performed and documented this service in my presence. I reviewed and verified all information documented by the medical student and made modifications to such information, when appropriate. I personally performed the physical exam and medical decision making. Najma Santos, Jul 11, 2019,21:[address] [facility] [address] Jul 11, 2019 15:41 NAJMA CHAPARRO DO Jul 11, 2019 21:37 POS
--- NOTE | 2019-07-11 16:17 | NUR ---
Received a call from Andreas with [facility] regarding the possibility of the nurse from [facility] evaluating this patient's colostomy; unfortunately, the nurse's schedule is full and she will not be able to visit the hospital tomorrow. Notified
--- NOTE | 2019-07-11 16:19 | NUR ---
provided prayer and Communion.
[2019-07-11] MEDS: ENOXAPARIN 40 MG/0.4 ML (LOVENOX) SYR SC SCH (16:39)
[2019-07-11 17:23] VITALS: BP 121/76
[2019-07-11] MEDS: MELATONIN 3 MG TABLET PO SCH (20:19)
[2019-07-11] MEDS: LIDOCAINE PATCH REMOVAL TP SCH (20:19)
[2019-07-11] MEDS: POLYETHYLENE GLYCOL 17 GM (MIRALAX) PACK PO SCH (20:19)
[2019-07-11] MEDS: SIMvastatin 40 MG (ZOCOR) TAB PO SCH (20:19)
[2019-07-11] MEDS: ONDANSETRON 4 MG (ZOFRAN) ORAL DISSOLVE TAB PO PRN (22:05)
[2019-07-12 05:01] VITALS: BP 132/74
[2019-07-12] MEDS: LEVOTHYROXINE 50 MCG (LEVOTHROID) TAB PO SCH (06:31)
[2019-07-12] MEDS: PANTOPRAZOLE 40 MG (PROTONIX) TAB PO SCH (06:31)
[2019-07-12] MEDS: SENNA W/DOCUSATE (SENOKOT S) TABLET PO SCH ×2 (09:03→21:06)
[2019-07-12] MEDS: GABAPENTIN 300 MG (NEURONTIN) CAP PO SCH ×3 (09:03→21:06)
[2019-07-12] MEDS: lisINopril 10 MG (PRINIVIL) TABLET PO SCH (09:03)
[2019-07-12] MEDS: DOCUSATE SODIUM 100 MG (COLACE) CAP PO SCH (09:03)
[2019-07-12] MEDS: POLYETHYLENE GLYCOL 17 GM (MIRALAX) PACK PO SCH ×2 (09:03→21:06)
[2019-07-12] MEDS: HYDROcodone/APAP 5 MG/325 MG (LORTAB) TAB PO PRN ×2 (09:03→15:39)
[2019-07-12] MEDS: LIDOCAINE 4% (SALONPAS) PATCH TOP SCH (09:04)
--- NOTE | 2019-07-12 09:08 | Physical Therapy Daily Note ---
PT Daily Note-Current Subjective Agreeable to PT. No complaints. Mental Status Patient Orientation: Person, Place, Time, Situation Transfers SCALE: Activities may be completed with or without assistive devices. 4-Btisoffnag-qlcmpen completes the activity by him/herself with no assistance from a helper. 5-Set-up or Clean-up Assistance-helper sets up or cleans up; patient completes activity. [place] assists only prior to or following the activity. 4-Supervision or Touching Assistance-helper provides verbal cues and/or touching/steadying and/or contact guard assistance as patient completes activity. Assistance may be provided throughout the activity or intermittently. 3-Partial/Moderate Assistance-helper does LESS THAN HALF the effort. [place] lifts, holds or supports trunk or limbs, but provides less than half the effort. 2-Substantial/Maximal Assistance-helper does MORE THAN HALF the effort. [place] lifts or holds trunk or limbs and provides more than half the effort. 2-Bzjvjvvrk-rthkyw does ALL the effort. Patient does none of the effort to complete the activity. Or, the assistance of 2 or more helpers is required for the patient to complete the activity. If activity was not attempted, code reason: 7-Patient Refused. 9-Not Applicable-not attempted and the patient did not perform the activity before the current illness, exacerbation or injury. 10-Not Attempted due to Environmental Limitations-(lack of equipment, weather restraints, etc.). 88-Not Attempted due to Medical Conditions or Safety Concerns. supine to sit EOB with use of the bedrail with min assist for right LE. Sit to stand with SBA all surfaces multiple times during treatment; including toilet transfer. Weight Bearing Right Lower Extremity: Right Full Weight Bearing Left Lower Extremity: Left Full Weight Bearing Exercises Standing: Marching Nuep Minutes: 10 (to promote LE strength and functional act tolerance for ambulation aND transfers. ) Treatments Pt in room post treatment with needs met. Assessment Current Status: Good Progress Motivated. Progressing well. PT Short Term Goals Short Term Goals Time Frame: Jun 29, 2019 Wheelchair Distance: 50' PT Manager Department Goals Manager Department Goals PT Manager Department Goals Time Frame: Jul 19, 2019 Sit to Lying (QC): 5 Lying-Sitting on Side/Bed(QC): 5 Sit to Stand (QC): 5 Roll Left to Right (QC): 5 Chair/Jck-kf-Uyryb Xfer(QC): 5 Car Transfer (QC): 5 Does the Patient Walk: Yes Distance: 150' Walk 10 feet (QC): 4 (CGA) Walk 10ft-Uneven Surface(QC): 4 (CGA) Walk 50ft with 2 Turns (QC): 4 (CGA) Gait Assistive Device: FWW Does the Pt use WC or Scooter?: No 1 Step (curb) (QC): 3 (Mildred) PT Plan Problem List Problem List: Activity Tolerance, Functional Strength, Safety, Balance, Gait, Transfer, Bed Mobility Treatment/Plan Treatment Plan: Continue Plan of Care Treatment Plan: Bed Mobility, Education, Functional Activity Chuyita, Functional Strength, Group Therapy, Gait, Safety, Therapeutic Exercise, Transfers Treatment Duration: Jul 19, 2019 Frequency: At least 5 of 7 days/Wk (IRF) Estimated Hrs Per Day: 1.5 hours per day Patient and/or Family Agrees t: Yes Safety Risks/Education Patient Education: Safety Issues Teaching Recipient: Patient Teaching Methods: Discussion Response to Teaching: Return Demonstration discussed functional safety as pt was on the nu step Time/GCodes Time In: 830 Time Out: 900 Total Billed Treatment Time: 30 Total Billed Treatment visit FA 20 EX 10 SPENCER MUÑOZ PT Jul 12, 2019 09:08 POS
--- NOTE | 2019-07-12 09:20 | PM&R Progress Note ---
Subjective HPI/CC On Admission Date Seen by Provider: Jul 12, 2019 Time Seen by Provider: 08:30 Subjective/Events-last exam Steroid will be DC, will reach out to PCP Lidocaine patch really helping her Overall very good mood and very motivated since DC plan for one week Pain is well controlled Colostomy bag improved adherence now DC plan for 07/19/19 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 with assistant professor of psychology of Systems Musculoskeletal: back pain, leg pain Objective Exam Vital Signs Vital Signs Date Time Temp Pulse Resp B/P (MAP) Pulse Ox O2 Delivery O2 Flow Rate FiO2 07/12/19 08:00 Room Air 07/12/19 05:01 37.0 67 20 132/74 (93) 98 Capillary Refill : Less Than 3 Seconds General Appearance: No Apparent Distress, WD/WN, Chronically ill, Obese HEENT: PERRL/EOMI, Normal ENT Inspection, Pharynx Normal Neck: Full Range of Motion, Normal Inspection, Non Tender, Supple Respiratory: Chest Non Tender, Lungs Clear, Normal Breath Sounds, No Accessory Muscle Use, No Respiratory Distress Cardiovascular: Regular Rate, Rhythm, No Gallop, No JVD, No Murmur, Normal Peripheral Pulses Gastrointestinal: Normal Bowel Sounds, No Pulsatile Mass, Non Tender, Soft Back: Normal Inspection, No CVA Tenderness, No Vertebral Tenderness Extremity: Normal Capillary Refill, Normal Inspection, Normal Range of Motion, Non Tender, No Calf Tenderness, Pedal Edema Neurologic/Psychiatric: Alert, Oriented x3, No Motor/Sensory Deficits, Normal Mood/Affect, strategic sourcing manager II-XII Norm as Tested Skin: Normal Color Lymphatic: No Adenopathy Results/Procedures Lab Patient resulted labs reviewed. FIM Transfers Therapy Code Descriptions/Definitions Functional [place] Measure: 0=Not Assessed/NA 4=Minimal Assistance 1=Total Assistance 5=Supervision or Setup 2=Maximal Assistance 6=Modified [place] 3=Moderate Assistance 7=Complete IndependenceSCALE: Activities may be completed with or without assistive devices. 4-Tyklpxjhmg-apsbwau completes the activity by him/herself with no assistance from a helper. 5-Set-up or Clean-up Assistance-helper sets up or cleans up; patient completes activity. [place] assists only prior to or following the activity. 4-Supervision or Touching Assistance-helper provides verbal cues and/or touching/steadying and/or contact guard assistance as patient completes activity. Assistance may be provided throughout the activity or intermittently. 3-Partial/Moderate Assistance-helper does LESS THAN HALF the effort. [place] lifts, holds or supports trunk or limbs, but provides less than half the effort. 2-Substantial/Maximal Assistance-helper does MORE THAN HALF the effort. [place] lifts or holds trunk or limbs and provides more than half the effort. 9-Xpwrtkfjw-mwylcv does ALL the effort. Patient does none of the effort to complete the activity. Or, the assistance of 2 or more helpers is required for the patient to complete the activity. If activity was not attempted, code reason: 7-Patient Refused. 9-Not Applicable-not attempted and the patient did not perform the activity before the current illness, exacerbation or injury. 10-Not Attempted due to Environmental Limitations-(lack of equipment, weather restraints, etc.). 88-Not Attempted due to Medical Conditions or Safety Concerns. Transfers (B, C, W/C) (FIM): 3 Roll Left to Right (QC): 4 (bedrail, verb inst) Sit to Lying (QC): 4 (bedrail, verb inst) Sit to Stand (QC): 4 (Supervision) Chair/Sxc-up-Tjcyz Xfer(QC): 4 Car Transfer (QC): 88 Gait Training Does the Patient Walk?: Yes Gait (FIM): 5 Distance: 200 x2 Walk 10 feet (QC): 4 Walk 50 ft with 2 Turns(QC): 4 Walk 150 ft (QC): 4 Walking 10ft/uneven surface-QC: 88 Gait Persons Needed: 1 Gait Assistive Device: FWW Wheelchair Training Does the Pt Use a Wheelchair?: No Distance: 50' Wheel 50 ft with 2 turns (QC): 3 (modA) Wheel 150 ft (QC): 9 Type of Wheelchair: Manual Stair Training Stair Training: Handrails/: 1 handrail (BUE's on handrils) #of Steps: 1 (30 times) 1 Step (curb) (QC): 88 4 Steps (QC): 88 12 Steps (QC): 88 Stairs: Pattern: Step to (lead with LLE) Level of Assist: 4 Balance Picking up an Object (QC): 88 ADL-Treatment Eating (QC): 6 (Pt eats prior to session) Oral Hygiene (QC): 6 (Pt stands at sink and completes with IND.) Shower/Bathe Self (QC): 4 (Pt able to reach all areas with LHS, completes with SBA during stance to complete bottom washing. Pt utilizes grab bars in shower for stability) Upper Body Dressing (QC): 6 (Pt gathers clothing from closet, completes with IND.) Lower Body Dressing (QC): 4 (Pt completes while sitting on shower seat, requires physical and verbal cues to complete donning socks and pants with AE due to decreased problem solving. ) On/Off Footwear (QC): 1 (TD, unable to reach top of socks) Toileting Hygiene (QC): 6 (IND) Toilet Transfer (QC): 6 (IND with FWW. ) Assessment/Plan Assessment and Plan Assess & Plan/Chief Complaint Assessment: Myopathy with debility Status post anasarca 40 pounds of diuresis at [place] New colostomy status Hypertension Volume overload with edema Severe anemia with iron deficiency ordered iron infusions Nausea with pain medication will start giving snack before meds given Sciatica right sided Plan: Checked meds and labs Inpatient rehabilitation protocol but is slower pace of 11/03 Monitor nausea Supportive care Food before pain pill IV iron infusions ordered PCP to managing the right sided sciatica pain which is help with lidocaine patch so will DC prednisone DC next week (1) Myopathy Assessment & Plan: inpatient rehab (2) HFrEF (heart failure with reduced ejection fraction) Status: Acute Qualifiers: Heart failure chronicity: chronic Qualified Codes: I50.22 - Chronic systolic (congestive) heart failure (3) Hypothyroid Status: Chronic Assessment & Plan: continue levothyroxine (4) Acute on chronic kidney failure Status: Acute (5) Diverticulitis of intestine with perforation Status: Acute Assessment & Plan: s/p surgery 05/30/19 (6) Hypertension Qualifiers: Hypertension type: essential hypertension Qualified Codes: I10 - Essential (primary) hypertension (7) Anemia of chronic disease (8) Iron deficiency anemia Assessment & Plan: iron infusions (9) Right sided sciatica MATT NEWELL DO Jul 12, 2019 09:19 POS
--- NOTE | 2019-07-12 09:51 | Progress Note ---
[facility] 07/12/19 0951: Progress Note CC: Leg Weakness, Sciatica, Colostomy Pt reports that the Lidocaine patch was very helpful and decreased her pain at night significantly She reports getting more strength in her leg flexion Her left leg is still stronger but she has seen some good improvement in both legs She was able to step onto the short step yesterday in therapy which has made her feel much better about her progress She reports that her bowels have gotten more under control with less blow outs of her colostomy bag I told her that with the increased strength the next step was to learn how to care for her colostomy bag by herself to be able to return home She was agreeable to the colostomy training and understands that it is something she will need to learn SALLY NEWELL DO 07/12/19 1617: Supervisory-Addendum Brief Verification & Attestation Participated in pt care: history, MDM, physical Personally performed: exam, history, MDM, supervision of care Care discussed with: Medical Student Procedures: n/a Results interpretation: Verified all documentation Verification and Attestation of Medical Student E/M Service A medical student performed and documented this service in my presence. I reviewed and verified all information documented by the medical student and made modifications to such information, when appropriate. I personally performed the physical exam and medical decision making. Sally Newell, Jul 12, 2019,16:17 [facility] Jul 12, 2019 09:51 SALLY AMARO DO Jul 12, 2019 16:17 POS
--- NOTE | 2019-07-12 10:30 | NUR ---
Called [facility] [employer] regarding delivery of colostomy supplies. Supplies were shipped yesterday and should arrive to the patient's home on 07/15/19, per [employer] sales representative.
--- NOTE | 2019-07-12 11:11 | Physical Therapy Daily Note ---
PT Daily Note-Current Subjective Pt agreeable to PT session. States she would like to work on getting in and out of bed. Pain Numeric Pain Scale: 0-No Pain Comment: states she had her pain meds this morning Appearance Pt sitting up in recliner upon arrival, awake and alert. At end of session, pt sitting up in recliner with call light, phone and bedside table within reach Mental Status Patient Orientation: Person, Place, Time, Eyes Open, Situation Attachments: Colostomy/Ileostomy Transfers SCALE: Activities may be completed with or without assistive devices. 1-Dtgughnrwf-ywdwtjf completes the activity by him/herself with no assistance from a helper. 5-Set-up or Clean-up Assistance-helper sets up or cleans up; patient completes activity. [place] assists only prior to or following the activity. 4-Supervision or Touching Assistance-helper provides verbal cues and/or touching/steadying and/or contact guard assistance as patient completes activity. Assistance may be provided throughout the activity or intermittently. 3-Partial/Moderate Assistance-helper does LESS THAN HALF the effort. [place] lifts, holds or supports trunk or limbs, but provides less than half the effort. 2-Substantial/Maximal Assistance-helper does MORE THAN HALF the effort. [place] lifts or holds trunk or limbs and provides more than half the effort. 6-Vwdtvxofz-manoja does ALL the effort. Patient does none of the effort to complete the activity. Or, the assistance of 2 or more helpers is required for the patient to complete the activity. If activity was not attempted, code reason: 7-Patient Refused. 9-Not Applicable-not attempted and the patient did not perform the activity before the current illness, exacerbation or injury. 10-Not Attempted due to Environmental Limitations-(lack of equipment, weather restraints, etc.). 88-Not Attempted due to Medical Conditions or Safety Concerns. Roll Left to Right (QC): 6 Sit to Lying (QC): 4 (x3 reps, allowing pt to 1st attempt "her way" inability to complete transition into bed. Able to complete transtions into and out of bed x2 SBA, skilled verb inst for body positioning, use of belt to A LE's into bed with UE's) Sit to Stand (QC): 5 Chair/Fza-bo-Ctebh Xfer(QC): 5 skilled instruction provided for technique with transitions in and out of bed, pt becomes fatigued and frustrated easily, noted very weak R hip flexors randy Weight Bearing Right Lower Extremity: Right Full Weight Bearing Left Lower Extremity: Left Full Weight Bearing Gait Training Does the Patient Walk?: Yes Distance: 250, 300, 100 Walk 10 feet (QC): 4 Walk 50 ft with 2 Turns(QC): 4 Walk 150 ft (QC): 4 Gait Persons Needed: 1 Gait Assistive Device: FWW fair pace and step length, step height RLE<LLE, no LOB, occasionally running into furniture when distracted, antalgic with ~decreased stance time RLE Stair Training Stair Training: Handrails/: 1 handrail (R side, BUE support) #of Steps: 1 (x 4 reps) 1 Step (curb) (QC): 4 (x10 reps) Stairs: Pattern: Step to (leading with LLE) Level of Assist: 4 Pt having difficulty with lifting RLE up onto step Exercises Supine Ex: Straight leg raise (instruction/education) Seated Therapy Exercises: Hip flexion (20, minimal lift of R foot off floor and requiring great effort) Standing: Marching (20), Sit to Stand (10), Step-ups (and toe taps x20 total) Treatments education, safety, transfers, gait, bed mobility, activity tolerance, functional mobility, strength, balance, steps Assessment Current Status: Good Progress Noting pt needing increased R hip strengthening as it is very difficult for her to lift RLE more than 1 inch from floor, fatigues easily/quickly randy with activities and ex's involving RLE PT Short Term Goals Short Term Goals Time Frame: Jun 29, 2019 Wheelchair Distance: 50' PT Jail Goals Jail Goals PT Creche Attendant Goals Time Frame: Jul 19, 2019 Sit to Lying (QC): 5 Lying-Sitting on Side/Bed(QC): 5 Sit to Stand (QC): 5 Roll Left to Right (QC): 5 Chair/Pxl-wd-Cibsn Xfer(QC): 5 Car Transfer (QC): 5 Does the Patient Walk: Yes Distance: 150' Walk 10 feet (QC): 4 (CGA) Walk 10ft-Uneven Surface(QC): 4 (CGA) Walk 50ft with 2 Turns (QC): 4 (CGA) Gait Assistive Device: FWW Does the Pt use WC or Scooter?: No 1 Step (curb) (QC): 3 (Mildred) PT Plan Treatment/Plan Treatment Plan: Continue Plan of Care Treatment Plan: Bed Mobility, Education, Functional Activity [place]ita, Functional Strength, Group Therapy, Gait, Safety, Therapeutic Exercise, Transfers Treatment Duration: Jul 19, 2019 Frequency: At least 5 of 7 days/Wk (IRF) Estimated Hrs Per Day: 1.5 hours per day Patient and/or Family Agrees t: Yes Safety Risks/Education Patient Education: Gait Training, Transfer Techniques, Steps, Safety Issues Teaching Recipient: Patient Teaching Methods: Demonstration, Discussion Response to Teaching: Verbalize Understanding, Return Demonstration, Reinforcement Needed Time/GCodes Time In: 1100 Time Out: 1200 Total Billed Treatment Time: 60 Total Billed Treatment 1 visit, GT x30 min, FA x30 min VERA PORTILLO PTA Jul 12, 2019 11:11 POS
--- NOTE | 2019-07-12 11:44 | Occupational Ther Daily Note ---
OT Current Status-Daily Note Subjective Pt seen in recliner chair, no c/o pain. Pt agreeable to OT tx session. Mental Status/Objective Patient Orientation: Normal For Age ADL-Treatment Therapy Code Descriptions/Definitions Functional [place] Measure: 0=Not Assessed/NA 4=Minimal Assistance 1=Total Assistance 5=Supervision or Setup 2=Maximal Assistance 6=Modified [place] 3=Moderate Assistance 7=Complete IndependenceSCALE: Activities may be completed with or without assistive devices. 6-Gdmpxfuyiy-zigygua completes the activity by him/herself with no assistance from a helper. 5-Set-up or Clean-up Assistance-helper sets up or cleans up; patient completes activity. [place] assists only prior to or following the activity. 4-Supervision or Touching Assistance-helper provides verbal cues and/or touching/steadying and/or contact guard assistance as patient completes activity. Assistance may be provided throughout the activity or intermittently. 3-Partial/Moderate Assistance-helper does LESS THAN HALF the effort. [place] lifts, holds or supports trunk or limbs, but provides less than half the effort. 2-Substantial/Maximal Assistance-helper does MORE THAN HALF the effort. [place] lifts or holds trunk or limbs and provides more than half the effort. 9-Dabxzqnqb-bntciu does ALL the effort. Patient does none of the effort to comp lete the activity. Or, the assistance of 2 or more helpers is required for the patient to complete the activity. If activity was not attempted, code reason: 7-Patient Refused. 9-Not Applicable-not attempted and the patient did not perform the activity before the current illness, exacerbation or injury. 10-Not Attempted due to Environmental Limitations-(lack of equipment, weather restraints, etc.). 88-Not Attempted due to Medical Conditions or Safety Concerns. Eating (QC): 6 Toileting Hygiene (QC): 6 Toilet Transfer (QC): 6 Other Treatment Pt completes gathering clothing items for washing, pt educated on use of walker tray for use of transferring items, pt expresses interest in use of walker tray for daily tasks. Pt completes washing clothing with SUP, requires min cues for safety during reaching and FWW management tasks. Pt ambulates with FWW to therapy gym, completes 15 minutes of moderate resistance arm bike (25 franco). Pt does not express SOB or fatigue. Pt completes UE dumbbell weight exercises to encourage strengthening for daily tasks, focusing on external rotation, pro/supination, wrist flex/ extension, elbow flexion, and shoulder scaption and forward flexion (2 sets of 10-15 reps of each exercise with 2-3# dumbbells). Pt expresses fatigue when rest breaks needed. Pt completes dynamic/ functional stretching tasks, bringing BUE toward each toe to hold for 3 sec to encourage increased IND during pant donning. Pt able to reach ankle and hold for 3 seconds with good sitting balance, requires cues for breathing techniques intermittently. Pt returns to laundry, requires cues for FWW placement in front of washer for safety. Pt completes reaching into top loading washer and crossing midline to dryer with support with one hand on the washer with good safety. Pt returns to room, restroom use with IND, returns to recliner chair with all needs met and call light in reach. Education OT Patient Education: Correct positioning, Exercise program, Home exercise program, Modified ADL techniques, Purpose of tx/functional activities, Safety issues, Use of adapted equipment Teaching Recipient: Patient Teaching Methods: Demonstration, Discussion Response to Teaching: Verbalize Understanding, Return Demonstration OT Short Term Goals Short Term Goals Upper Body Dressing(FIM): 4 (met) Lower Body Dressing(FIM): 3 (met) Toileting(FIM): 2 (met) Transfers (B,C,W/C) (FIM): 3 (met) Additional Short Term Goals: 1-Demonstrate ADL Tasks, 2-Verbalize Understanding, 3-ImproveStrength/[place] 1=Demonstrate adherence to instructed precautions during ADL tasks. 2=Patient will verbalize/demonstrate understanding of assistive devices/modifications for ADL. 3=Patient will improve strength/tolerance for activity to enable patient to perform ADL's. OT Agricultural Education Professor Goals Intermediate Goals Time Frame: Jul 11, 2019 Eating (QC): 6 (met) Oral Hygiene (QC): 6 (met) Shower/Bathe Self (QC): 5 Upper Body Dressing (QC): 6 (met) Lower Body Dressing (QC): 4 (met) On/Off Footwear (QC): 6 (met) Toileting Hygiene (QC): 4 (met) Toilet/Commode Transfer (QC): 6 (met) Additional Goals: 1-Demonstrate ADL Tasks, 2-Verbalize Understanding, 3-Improve Strength/[place]uy[place] 1=Demonstrate adherence to instructed precautions during ADL tasks. 2=Patient will verbalize/demonstrate understanding of assistive devices/modifications for ADL. 3=Patient will improve strength/tolerance for activity to enable patient to pe rform ADL's. OT Education/Plan Problem List/Assessment Assessment: Decreased Activ Tolerance, Decreased Safety Aware, Decreased UE Strength, Impaired I ADL's, Impaired Self-Care Skills Discharge Recommendations Plan/Recommendations: Continue POC Equpiment Recommendations-D/C: Other, See Comments (renny florian) Treatment Plan/Plan of Care Patient would benefit from OT for education, treatment and training to promote independence in ADL's, mobility, safety and/or upper extremity function for ADL's. Plan of Care: ADL Retraining, Caregiver Training, Concurrent Therapy, Functional Mobility, Group Exercise/Act as Ind, UE Funct Exercise/Act, W/C Management Training Treatment Duration: Jul 11, 2019 Frequency: At least 5 of 7 days/Wk (IRF) Estimated Hrs Per Day: 1.5 hours per day Agreement: Yes Rehab Potential: Fair Time/GCodes Start Time: 09:45 Stop Time: 11:00 Total Time Billed (hr/min): 75 Billed Treatment Time 1, ADL, EX 4 (75) CHRYSTAL HOPE OTR Jul 12, 2019 11:44 POS
--- NOTE | 2019-07-12 13:31 | Occupational Ther Daily Note ---
OT Current Status-Daily Note Subjective Pt seen in recliner chair, no pain stated. Pt agreeable to OT tx session. Mental Status/Objective Patient Orientation: Normal For Age ADL-Treatment Therapy Code Descriptions/Definitions Functional [place] Measure: 0=Not Assessed/NA 4=Minimal Assistance 1=Total Assistance 5=Supervision or Setup 2=Maximal Assistance 6=Modified [place] 3=Moderate Assistance 7=Complete IndependenceSCALE: Activities may be completed with or without assistive devices. 4-Qfgddycncs-qntnypt completes the activity by him/herself with no assistance from a helper. 5-Set-up or Clean-up Assistance-helper sets up or cleans up; patient completes activity. [place] assists only prior to or following the activity. 4-Supervision or Touching Assistance-helper provides verbal cues and/or touching/steadying and/or contact guard assistance as patient completes activity. Assistance may be provided throughout the activity or intermittently. 3-Partial/Moderate Assistance-helper does LESS THAN HALF the effort. [place] lifts, holds or supports trunk or limbs, but provides less than half the effort. 2-Substantial/Maximal Assistance-helper does MORE THAN HALF the effort. [place] lifts or holds trunk or limbs and provides more than half the effort. 7-Lhmxzeusy-vvhjyb does ALL the effort. Patient does none of the effort to c omplete the activity. Or, the assistance of 2 or more helpers is required for the patient to complete the activity. If activity was not attempted, code reason: 7-Patient Refused. 9-Not Applicable-not attempted and the patient did not perform the activity before the current illness, exacerbation or injury. 10-Not Attempted due to Environmental Limitations-(lack of equipment, weather restraints, etc.). 88-Not Attempted due to Medical Conditions or Safety Concerns. Eating (QC): 6 Other Treatment Pt completes laundry routine/ folding while seated in chair. Pt educated on energy conservation techniques during laundry routine. Pt sit to stand with CGA, utilizes FWW to ambulate, places clothing in closet. Pt returns to recliner chair with SUP, able to situate self to comfort, call light in reach, all needs met. Education OT Patient Education: Correct positioning, Energy conservation, Purpose of tx/functional activities Teaching Recipient: Patient Teaching Methods: Demonstration, Discussion Response to Teaching: Verbalize Understanding, Return Demonstration OT Short Term Goals Short Term Goals Upper Body Dressing(FIM): 4 (met) Lower Body Dressing(FIM): 3 (met) Toileting(FIM): 2 (met) Transfers (B,C,W/C) (FIM): 3 (met) Additional Short Term Goals: 1-Demonstrate ADL Tasks, 2-Verbalize Understanding, 3-ImproveStrength/[place]uy[place] 1=Demonstrate adherence to instructed precautions during ADL tasks. 2=Patient will verbalize/demonstrate understanding of assistive devices/modifications for ADL. 3=Patient will improve strength/tolerance for activity to enable patient to perform ADL's. OT Cigar Roller Goals Mcc Goals Time Frame: Jul 11, 2019 Eating (QC): 6 (met) Oral Hygiene (QC): 6 (met) Shower/Bathe Self (QC): 5 Upper Body Dressing (QC): 6 (met) Lower Body Dressing (QC): 4 (met) On/Off Footwear (QC): 6 (met) Toileting Hygiene (QC): 4 (met) Toilet/Commode Transfer (QC): 6 (met) Additional Goals: 1-Demonstrate ADL Tasks, 2-Verbalize Understanding, 3- ImproveStrength/[place] 1=Demonstrate adherence to instructed precautions during ADL tasks. 2=Patient will verbalize/demonstrate understanding of assistive devices/modifications for ADL. 3=Patient will improve strength/tolerance for activity to enable patient to perform ADL's. OT Education/Plan Problem List/Assessment Assessment: Decreased Activ Tolerance, Decreased UE Strength, Impaired I ADL's, Impaired Self-Care Skills Discharge Recommendations Plan/Recommendations: Continue POC Treatment Plan/Plan of Care Treatment,Training & Education: Yes Patient would benefit from OT for education, treatment and training to promote independence in ADL's, mobility, safety and/or upper extremity function for ADL's. Plan of Care: ADL Retraining, Caregiver Training, Concurrent Therapy, Functional Mobility, Group Exercise/Act as Ind, UE Funct Exercise/Act, W/C Management Training Treatment Duration: Jul 11, 2019 Frequency: At least 5 of 7 days/Wk (IRF) Estimated Hrs Per Day: 1.5 hours per day Agreement: Yes Rehab Potential: Fair Time/GCodes Start Time: 13:00 Stop Time: 13:15 Total Time Billed (hr/min): 15 Billed Treatment Time 1, FA (15) CHRYSTAL OHPE OTR Jul 12, 2019 13:31 POS
--- NOTE | 2019-07-12 15:16 | NUR ---
"RD ASSESSMENT PMHx: HTN; hypercholesterolemia PT INTERACTION: Pt was awake and pleasant during follow-up. Pt states eating well since last assessment. Note pt avg PO intake of 77% x4d, per chart review. Pt states she has not been drinking her nutrition supplements and asked them to be taken off her trays, stating that she is getting enough from food that she does not need them. Pt states no recent issues with n/v at this time. Pt states having problems with her colostomy. ABNORMAL NUTRITION-RELATED LAB VALUES: (taken 07/08) Cl 108 (H); BUN 47 (H); cr 1.47 (H); Pro 5.9 (L) Est. kcal needs: [id number] | 15-18 kcal/kg Est. Pro needs: 75-93 g Pro | 0.8-1.0 g Pro/kg PES STATEMENT: Given pt's current PO intake, no nutrition diagnosis at this time (NO-1.1) INTERVENTION: Continue with current diet order of Regular diet. Given pt's current intake, pt does not need nutrition supplements at this time. D/C order of Ensure Plus with meals TID. Will continue to follow and reassess as pt needs and status change. MONITOR/EVALUATE: PO Intake; Plan of Care; Hydration Status; Weight Status; Lab Values Phyllis Johnson, MS, RD, LD"
--- NOTE | 2019-07-12 15:38 | NUR ---
provided prayer and Communion.
[2019-07-12 16:00] VITALS: BP 109/68
[2019-07-12] MEDS: ENOXAPARIN 40 MG/0.4 ML (LOVENOX) SYR SC SCH (17:06)
--- NOTE | 2019-07-12 19:14 | NUR ---
bedside report received from MIKAL LOVE, assume care of pt
[2019-07-12] MEDS: MELATONIN 3 MG TABLET PO SCH (21:06)
[2019-07-12] MEDS: SIMvastatin 40 MG (ZOCOR) TAB PO SCH (21:07)
[2019-07-12] MEDS: LIDOCAINE PATCH REMOVAL TP SCH (21:11)
--- NOTE | 2019-07-12 21:12 | NUR ---
dressing change to abd, small pin hole size area packed with iodoform packing gauze & abd dressing
[2019-07-13 05:31] VITALS: BP 152/77
[2019-07-13] MEDS: PANTOPRAZOLE 40 MG (PROTONIX) TAB PO SCH (06:43)
[2019-07-13] MEDS: LEVOTHYROXINE 50 MCG (LEVOTHROID) TAB PO SCH (06:43)
--- NOTE | 2019-07-13 07:12 | NUR ---
bedside report given to DAYDAY LOVE
[2019-07-13] MEDS: POLYETHYLENE GLYCOL 17 GM (MIRALAX) PACK PO SCH ×2 (08:19→20:46)
[2019-07-13] MEDS: SENNA W/DOCUSATE (SENOKOT S) TABLET PO SCH ×2 (08:19→20:46)
[2019-07-13] MEDS: GABAPENTIN 300 MG (NEURONTIN) CAP PO SCH ×3 (08:20→20:45)
[2019-07-13] MEDS: lisINopril 10 MG (PRINIVIL) TABLET PO SCH (08:20)
[2019-07-13] MEDS: DOCUSATE SODIUM 100 MG (COLACE) CAP PO SCH (08:20)
[2019-07-13] MEDS: HYDROcodone/APAP 5 MG/325 MG (LORTAB) TAB PO PRN ×2 (08:20→22:13)
[2019-07-13] MEDS: LIDOCAINE 4% (SALONPAS) PATCH TOP SCH (08:21)
--- NOTE | 2019-07-13 12:05 | PM&R Progress Note ---
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 with lead ingot molder of Systems General: Fatigue Musculoskeletal: back pain Objective Exam Vital Signs Vital Signs Date Time Temp Pulse Resp B/P (MAP) Pulse Ox O2 Delivery O2 Flow Rate FiO2 07/14/19 09:00 Room Air 07/14/19 07:54 36.4 80 20 156/66 97 Capillary Refill : Less Than 3 Seconds General Appearance: No Apparent Distress, WD/WN, Chronically ill, Obese HEENT: PERRL/EOMI, Normal ENT Inspection, Pharynx Normal Neck: Full Range of Motion, Normal Inspection, Non Tender, Supple Respiratory: Chest Non Tender, Lungs Clear, Normal Breath Sounds, No Accessory Muscle Use, No Respiratory Distress Cardiovascular: Regular Rate, Rhythm, No Gallop, No JVD, No Murmur, Normal Peripheral Pulses Gastrointestinal: Normal Bowel Sounds, No Pulsatile Mass, Non Tender, Soft Back: Normal Inspection, No CVA Tenderness, No Vertebral Tenderness Extremity: Normal Capillary Refill, Normal Inspection, Normal Range of Motion, Non Tender, No Calf Tenderness, Pedal Edema Neurologic/Psychiatric: Alert, Oriented x3, No Motor/Sensory Deficits, Normal Mood/Affect, computer programming professor II-XII Norm as Tested Skin: Normal Color Lymphatic: No Adenopathy Results/Procedures Lab Patient resulted labs reviewed. FIM Transfers Therapy Code Descriptions/Definitions Functional [place] Measure: 0=Not Assessed/NA 4=Minimal Assistance 1=Total Assistance 5=Supervision or Setup 2=Maximal Assistance 6=Modified [place] 3=Moderate Assistance 7=Complete IndependenceSCALE: Activities may be completed with or without assistive devices. 5-Llcayouomr-lzwhxor completes the activity by him/herself with no assistance from a helper. 5-Set-up or Clean-up Assistance-helper sets up or cleans up; patient completes activity. [place] assists only prior to or following the activity. 4-Supervision or Touching Assistance-helper provides verbal cues and/or touching/steadying and/or contact guard assistance as patient completes activity. Assistance may be provided throughout the activity or intermittently. 3-Partial/Moderate Assistance-helper does LESS THAN HALF the effort. [place] lifts, holds or supports trunk or limbs, but provides less than half the effort. 2-Substantial/Maximal Assistance-helper does MORE THAN HALF the effort. [place] lifts or holds trunk or limbs and provides more than half the effort. 1-Nhxkgtzfz-ydcywj does ALL the effort. Patient does none of the effort to complete the activity. Or, the assistance of 2 or more helpers is required for the patient to complete the activity. If activity was not attempted, code reason: 7-Patient Refused. 9-Not Applicable-not attempted and the patient did not perform the activity before the current illness, exacerbation or injury. 10-Not Attempted due to Environmental Limitations-(lack of equipment, weather restraints, etc.). 88-Not Attempted due to Medical Conditions or Safety Concerns. Transfers (B, C, W/C) (FIM): 3 Roll Left to Right (QC): 6 Sit to Lying (QC): 4 (x3 reps, allowing pt to 1st attempt "her way" inability to complete transition into bed. Able to complete transtions into and out of bed x2 SBA, skilled verb inst for body positioning, use of belt to A LE's into bed with UE's) Sit to Stand (QC): 5 Chair/Lnd-mw-Wcrih Xfer(QC): 5 Car Transfer (QC): 88 Gait Training Does the Patient Walk?: Yes Gait (FIM): 5 Distance: 250, 300, 100 Walk 10 feet (QC): 4 Walk 50 ft with 2 Turns(QC): 4 Walk 150 ft (QC): 4 Walking 10ft/uneven surface-QC: 88 Gait Persons Needed: 1 Gait Assistive Device: FWW Wheelchair Training Does the Pt Use a Wheelchair?: No Distance: 50' Wheel 50 ft with 2 turns (QC): 3 (modA) Wheel 150 ft (QC): 9 Type of Wheelchair: Manual Stair Training Stair Training: Handrails/: 1 handrail (R side, BUE support) #of Steps: 1 (x 4 reps) 1 Step (curb) (QC): 4 (x10 reps) 4 Steps (QC): 88 12 Steps (QC): 88 Stairs: Pattern: Step to (leading with LLE) Level of Assist: 4 Balance Picking up an Object (QC): 88 ADL-Treatment Eating (QC): 6 Oral Hygiene (QC): 6 (Pt stands at sink and completes with IND.) Shower/Bathe Self (QC): 4 (Pt able to reach all areas with LHS, completes with SBA during stance to complete bottom washing. Pt utilizes grab bars in shower for stability) Upper Body Dressing (QC): 6 (Pt gathers clothing from closet, completes with IND.) Lower Body Dressing (QC): 4 (Pt completes while sitting on shower seat, requires physical and verbal cues to complete donning socks and pants with AE due to decreased problem solving. ) On/Off Footwear (QC): 1 (TD, unable to reach top of socks) Toileting Hygiene (QC): 6 Toilet Transfer (QC): 6 Assessment/Plan Assessment and Plan Assess & Plan/Chief Complaint Assessment: Myopathy with debility Status post anasarca 40 pounds of diuresis at [place] New colostomy status Hypertension Volume overload with edema Severe anemia with iron deficiency ordered iron infusions Nausea with pain medication will start giving snack before meds given Sciatica right sided improved on lidocaine patch Plan: Checked meds and labs Inpatient rehabilitation protocol but is slower pace of 11/03 Monitor nausea Supportive care Food before pain pill IV iron infusions ordered PCP to managing the right sided sciatica pain which is help with lidocaine patch so will DC prednisone DC next week (1) Myopathy Assessment & Plan: inpatient rehab (2) HFrEF (heart failure with reduced ejection fraction) Status: Acute Qualifiers: Heart failure chronicity: chronic Qualified Codes: I50.22 - Chronic systolic (congestive) heart failure (3) Hypothyroid Status: Chronic Assessment & Plan: continue levothyroxine (4) Acute on chronic kidney failure Status: Acute (5) Diverticulitis of intestine with perforation Status: Acute Assessment & Plan: s/p surgery 05/30/19 (6) Hypertension Qualifiers: Hypertension type: essential hypertension Qualified Codes: I10 - Essential (primary) hypertension (7) Anemia of chronic disease (8) Iron deficiency anemia Assessment & Plan: iron infusions (9) Right sided sciatica MATT NEWELL DO Jul 13, 2019 12:05 POS
--- NOTE | 2019-07-13 12:41 | Physical Therapy Daily Note ---
PT Daily Note-Current Subjective Pt agreeable to PT session. Pain Numeric Pain Scale: 0-No Pain Appearance Pt in bed awake and alert upon arrival. Requesting and assisted to bathroom and changing clothing. At end of session, pt sitting up in recliner with phone, call light and bedside table within reach Mental Status Patient Orientation: Normal For Age Transfers SCALE: Activities may be completed with or without assistive devices. 9-Qjrcchoicz-nchozip completes the activity by him/herself with no assistance from a helper. 5-Set-up or Clean-up Assistance-helper sets up or cleans up; patient completes activity. [place] assists only prior to or following the activity. 4-Supervision or Touching Assistance-helper provides verbal cues and/or touching/steadying and/or contact guard assistance as patient completes activity. Assistance may be provided throughout the activity or intermittently. 3-Partial/Moderate Assistance-helper does LESS THAN HALF the effort. [place] lifts, holds or supports trunk or limbs, but provides less than half the effort. 2-Substantial/Maximal Assistance-helper does MORE THAN HALF the effort. [place] lifts or holds trunk or limbs and provides more than half the effort. 4-Yloyrzfli-ahrydf does ALL the effort. Patient does none of the effort to complete the activity. Or, the assistance of 2 or more helpers is required for the patient to complete the activity. If activity was not attempted, code reason: 7-Patient Refused. 9-Not Applicable-not attempted and the patient did not perform the activity before the current illness, exacerbation or injury. 10-Not Attempted due to Environmental Limitations-(lack of equipment, weather restraints, etc.). 88-Not Attempted due to Medical Conditions or Safety Concerns. Roll Left to Right (QC): 5 Sit to Lying (QC): 3 Sit to Stand (QC): 4 Chair/Dea-yn-Zoqyo Xfer(QC): 4 requiring physical assist with LE's out of bed this session Weight Bearing Right Lower Extremity: Right Full Weight Bearing Left Lower Extremity: Left Full Weight Bearing Gait Training Does the Patient Walk?: Yes Distance: 200 x2 Walk 10 feet (QC): 4 Walk 50 ft with 2 Turns(QC): 4 Walk 150 ft (QC): 4 Gait Persons Needed: 1 Gait Assistive Device: FWW no LOB or unsteadiness, min fatigue Stair Training Stair Training: Handrails/: 1 handrail (BUE on R handrail ascend ) #of Steps: 2 1 Step (curb) (QC): 4 (x30, unable to step up onto pink step with RLE, used blue balance pad to perform and pt able to lift RLE up and onto) Stairs: Pattern: Step to Level of Assist: 4 lateral step up 2 stairs with handrail leading with LLE. Fwd step ups with RLE in // bars onto blue balance pad Treatments bed mobility, transfers, gait, toileting, chelsie care, dressing, education, safety, functional mobility, activity tolerance, stairs, steps, strength, balance Assessment Current Status: Good Progress slightly improving Right hip strength PT Short Term Goals Short Term Goals Time Frame: Jun 29, 2019 Wheelchair Distance: 50' PT City Driver Goals City Driver Goals PT Prison Goals Time Frame: Jul 19, 2019 Sit to Lying (QC): 5 Lying-Sitting on Side/Bed(QC): 5 Sit to Stand (QC): 5 Roll Left to Right (QC): 5 Chair/Rvy-ln-Odqbp Xfer(QC): 5 Car Transfer (QC): 5 Does the Patient Walk: Yes Distance: 150' Walk 10 feet (QC): 4 (CGA) Walk 10ft-Uneven Surface(QC): 4 (CGA) Walk 50ft with 2 Turns (QC): 4 (CGA) Gait Assistive Device: FWW Does the Pt use WC or Scooter?: No 1 Step (curb) (QC): 3 (Mildred) PT Plan Treatment/Plan Treatment Plan: Continue Plan of Care Treatment Plan: Bed Mobility, Education, Functional Activity [place], Functional Strength, Group Therapy, Gait, Safety, Therapeutic Exercise, Transfers Treatment Duration: Jul 19, 2019 Frequency: At least 5 of 7 days/Wk (IRF) Estimated Hrs Per Day: 1.5 hours per day Patient and/or Family Agrees t: Yes Safety Risks/Education Patient Education: Gait Training, Transfer Techniques, Steps, Correct Positioning, Safety Issues Teaching Recipient: Patient Teaching Methods: Demonstration, Discussion Response to Teaching: Verbalize Understanding, Return Demonstration, Reinforcement Needed Time/GCodes Time In: 1002 Time Out: 1034 Total Billed Treatment Time: 32 Total Billed Treatment 1 visit, GT x1 unit, EX x1 unit VERA PORTILLO CEO [place] Jul 13, 2019 12:41 POS
[2019-07-13 17:06] VITALS: BP 126/69
[2019-07-13] MEDS: ENOXAPARIN 40 MG/0.4 ML (LOVENOX) SYR SC SCH (17:17)
--- NOTE | 2019-07-13 19:09 | NUR ---
bedside report received from DAYDAY LOVE, assume care of pt
[2019-07-13] MEDS: MELATONIN 3 MG TABLET PO SCH (20:46)
[2019-07-13] MEDS: LIDOCAINE PATCH REMOVAL TP SCH (20:46)
[2019-07-13] MEDS: SIMvastatin 40 MG (ZOCOR) TAB PO SCH (20:46)
--- NOTE | 2019-07-13 20:50 | NUR ---
dressing change to abd wound, small pinhole packed with iodoform Gauze & covered with abd dressing, tolerated well
--- NOTE | 2019-07-13 22:13 | NUR ---
c/o pain to right leg, pain level 4/10 on numeric scale, Lortab 5 1 tab given
--- NOTE | 2019-07-13 22:50 | NUR ---
resting quietly in bed, pain level 0/10 on flacc scale
[2019-07-14] MEDS: HYDROcodone/APAP 5 MG/325 MG (LORTAB) TAB PO PRN ×3 (03:26→21:02)
--- NOTE | 2019-07-14 03:26 | NUR ---
c/o rt leg pain, level 4/10 on numeric scale, Lortab 5 1 tab given
--- NOTE | 2019-07-14 04:00 | NUR ---
resting quietly in bed, pain level 0/10 on flacc scale
[2019-07-14 06:17] VITALS: BP 156/66
[2019-07-14] MEDS: PANTOPRAZOLE 40 MG (PROTONIX) TAB PO SCH (06:31)
[2019-07-14] MEDS: LEVOTHYROXINE 50 MCG (LEVOTHROID) TAB PO SCH (06:31)
--- NOTE | 2019-07-14 07:07 | NUR ---
bedside report given to DAYDAY LOVE
[2019-07-14 07:54] VITALS: BP 156/66
[2019-07-14] MEDS: DOCUSATE SODIUM 100 MG (COLACE) CAP PO SCH (08:16)
[2019-07-14] MEDS: SENNA W/DOCUSATE (SENOKOT S) TABLET PO SCH ×2 (08:16→21:02)
[2019-07-14] MEDS: GABAPENTIN 300 MG (NEURONTIN) CAP PO SCH ×3 (08:16→21:02)
[2019-07-14] MEDS: lisINopril 10 MG (PRINIVIL) TABLET PO SCH (08:16)
[2019-07-14] MEDS: LIDOCAINE 4% (SALONPAS) PATCH TOP SCH (08:17)
[2019-07-14] MEDS: POLYETHYLENE GLYCOL 17 GM (MIRALAX) PACK PO SCH ×2 (08:17→21:02)
[2019-07-14] MEDS: CALCIUM CARBONATE 500 MG (TUMS) TAB.CHEW PO PRN (09:40)
--- NOTE | 2019-07-14 16:09 | PM&R Progress Note ---
Subjective HPI/CC On Admission Date Seen by Provider: Jul 14, 2019 Time Seen by Provider: 11:30 Subjective/Events-last exam No nausea again today BM in colostomy and Miralax refused Colostomy causes her concerns since she appears to not be able to manage it on her own No pain since Lidocaine patch applied by PCP DC plan for 07/19/19 and she feels ready 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 with continuity coordinator of Systems General: Fatigue Musculoskeletal: back pain Objective Exam Vital Signs Vital Signs Date Time Temp Pulse Resp B/P (MAP) Pulse Ox O2 Delivery O2 Flow Rate FiO2 07/14/19 09:00 Room Air 07/14/19 07:54 36.4 80 20 156/66 97 Capillary Refill : Less Than 3 Seconds General Appearance: No Apparent Distress, WD/WN, Chronically ill, Obese HEENT: PERRL/EOMI, Normal ENT Inspection, Pharynx Normal Neck: Full Range of Motion, Normal Inspection, Non Tender, Supple Respiratory: Chest Non Tender, Lungs Clear, Normal Breath Sounds, No Accessory Muscle Use, No Respiratory Distress Cardiovascular: Regular Rate, Rhythm, No Gallop, No JVD, No Murmur, Normal Peripheral Pulses Gastrointestinal: Normal Bowel Sounds, No Pulsatile Mass, Non Tender, Soft Back: Normal Inspection, No CVA Tenderness, No Vertebral Tenderness Extremity: Normal Capillary Refill, Normal Inspection, Normal Range of Motion, Non Tender, No Calf Tenderness, Pedal Edema Neurologic/Psychiatric: Alert, Oriented x3, No Motor/Sensory Deficits, Normal Mood/Affect, shoe stitcher odd II-XII Norm as Tested Skin: Normal Color Lymphatic: No Adenopathy Results/Procedures Lab Patient resulted labs reviewed. FIM Transfers Therapy Code Descriptions/Definitions Functional [place] Measure: 0=Not Assessed/NA 4=Minimal Assistance 1=Total Assistance 5=Supervision or Setup 2=Maximal Assistance 6=Modified [place] 3=Moderate Assistance 7=Complete IndependenceSCALE: Activities may be completed with or without assistive devices. 0-Ukxoxarjhq-cwlxdrs completes the activity by him/herself with no assistance from a helper. 5-Set-up or Clean-up Assistance-helper sets up or cleans up; patient completes activity. [place] assists only prior to or following the activity. 4-Supervision or Touching Assistance-helper provides verbal cues and/or touching/steadying and/or contact guard assistance as patient completes activity. Assistance may be provided throughout the activity or intermittently. 3-Partial/Moderate Assistance-helper does LESS THAN HALF the effort. [place] lifts, holds or supports trunk or limbs, but provides less than half the effort. 2-Substantial/Maximal Assistance-helper does MORE THAN HALF the effort. [place] lifts or holds trunk or limbs and provides more than half the effort. 7-Qzjsxrqru-nhbysw does ALL the effort. Patient does none of the effort to complete the activity. Or, the assistance of 2 or more helpers is required for the patient to complete the activity. If activity was not attempted, code reason: 7-Patient Refused. 9-Not Applicable-not attempted and the patient did not perform the activity before the current illness, exacerbation or injury. 10-Not Attempted due to Environmental Limitations-(lack of equipment, weather restraints, etc.). 88-Not Attempted due to Medical Conditions or Safety Concerns. Transfers (B, C, W/C) (FIM): 3 Roll Left to Right (QC): 5 Sit to Lying (QC): 3 Sit to Stand (QC): 4 Chair/Qif-ys-Kcxjn Xfer(QC): 4 Car Transfer (QC): 88 Gait Training Does the Patient Walk?: Yes Gait (FIM): 5 Distance: 200 x2 Walk 10 feet (QC): 4 Walk 50 ft with 2 Turns(QC): 4 Walk 150 ft (QC): 4 Walking 10ft/uneven surface-QC: 88 Gait Persons Needed: 1 Gait Assistive Device: FWW Wheelchair Training Does the Pt Use a Wheelchair?: No Distance: 50' Wheel 50 ft with 2 turns (QC): 3 (modA) Wheel 150 ft (QC): 9 Type of Wheelchair: Manual Stair Training Stair Training: Handrails/: 1 handrail (BUE on R handrail ascend ) #of Steps: 2 1 Step (curb) (QC): 4 (x30, unable to step up onto pink step with RLE, used blue balance pad to perform and pt able to lift RLE up and onto) 4 Steps (QC): 88 12 Steps (QC): 88 Stairs: Pattern: Step to Level of Assist: 4 Balance Picking up an Object (QC): 88 ADL-Treatment Eating (QC): 6 Oral Hygiene (QC): 6 (Pt stands at sink and completes with IND.) Shower/Bathe Self (QC): 4 (Pt able to reach all areas with LHS, completes with SBA during stance to complete bottom washing. Pt utilizes grab bars in shower for stability) Upper Body Dressing (QC): 6 (Pt gathers clothing from closet, completes with IND.) Lower Body Dressing (QC): 4 (Pt completes while sitting on shower seat, requires physical and verbal cues to complete donning socks and pants with AE due to decreased problem solving. ) On/Off Footwear (QC): 1 (TD, unable to reach top of socks) Toileting Hygiene (QC): 6 Toilet Transfer (QC): 6 Assessment/Plan Assessment and Plan Assess & Plan/Chief Complaint Assessment: Myopathy with debility Status post anasarca 40 pounds of diuresis at [place] New colostomy status Hypertension Volume overload with edema Severe anemia with iron deficiency ordered iron infusions Nausea with pain medication will start giving snack before meds given Sciatica right sided improved on lidocaine patch Plan: Checked meds and labs Inpatient rehabilitation protocol but is slower pace of 11/03 Monitor nausea Supportive care Food before pain pill IV iron infusions ordered PCP to managing the right sided sciatica pain which is help with lidocaine patch so will DC prednisone DC next week Hopefully she can manage the colostomy at home (1) Myopathy Assessment & Plan: inpatient rehab (2) HFrEF (heart failure with reduced ejection fraction) Status: Acute Qualifiers: Heart failure chronicity: chronic Qualified Codes: I50.22 - Chronic systolic (congestive) heart failure (3) Hypothyroid Status: Chronic Assessment & Plan: continue levothyroxine (4) Acute on chronic kidney failure Status: Acute (5) Diverticulitis of intestine with perforation Status: Acute Assessment & Plan: s/p surgery 05/30/19 (6) Hypertension Qualifiers: Hypertension type: essential hypertension Qualified Codes: I10 - Essential (primary) hypertension (7) Anemia of chronic disease (8) Iron deficiency anemia Assessment & Plan: iron infusions (9) Right sided sciatica MATT NEWELL DO Jul 14, 2019 16:09 POS
[2019-07-14] MEDS: ENOXAPARIN 40 MG/0.4 ML (LOVENOX) SYR SC SCH (16:52)
[2019-07-14 18:22] VITALS: BP 148/76
--- NOTE | 2019-07-14 19:10 | NUR ---
bedside report received from DAYDAY LOVE, assume care of pt
[2019-07-14] MEDS: LIDOCAINE PATCH REMOVAL TP SCH (21:02)
[2019-07-14] MEDS: MELATONIN 3 MG TABLET PO SCH (21:02)
[2019-07-14] MEDS: SIMvastatin 40 MG (ZOCOR) TAB PO SCH (21:02)
--- NOTE | 2019-07-14 21:02 | NUR ---
c/o rt leg pain level 4/10 on numeric scale, lortab 5 1 tab given
--- NOTE | 2019-07-14 21:05 | NUR ---
dressing changed to abd wound pinhole size packed with iodoform gauze & dressing on top
--- NOTE | 2019-07-14 21:50 | NUR ---
resting quietly in bed, pain level 0/10 on flacc scale
[2019-07-15] MEDS: HYDROcodone/APAP 5 MG/325 MG (LORTAB) TAB PO PRN ×3 (04:40→21:08)
--- NOTE | 2019-07-15 04:40 | NUR ---
c/o rt leg pain level 4/10 on numeric scale, Lortab 5 1 tab given
--- NOTE | 2019-07-15 05:19 | NUR ---
resting quietly in bed, pain level 0/10 on flacc scale
[2019-07-15 05:27] LABS: BASOPHILS # (AUTO) 0.1 10^3/uL (0.0-0.1); BASOPHILS % (AUTO) 1 % (0-10); EOSINOPHILS # (AUTO) 0.4 10^3/uL (0.0-0.3); EOSINOPHILS % (AUTO) 4 % (0-10); HEMATOCRIT 28 % (35-52); HEMOGLOBIN 8.4 G/DL (11.5-16.0); LYMPHOCYTES # (AUTO) 3.4 X 10^3 (1.0-4.0); LYMPHOCYTES % (AUTO) 36 % (12-44); MEAN CORPUSCULAR HEMOGLOBIN 29 PG (25-34); MEAN CORPUSCULAR HGB CONC 30 G/DL (32-36); MEAN CORPUSCULAR VOLUME 97 FL (80-99); MEAN PLATELET VOLUME 11.3 FL (7.4-10.4); MONOCYTES % (AUTO) 11 % (0-12); NEUTROPHILS # (AUTO) 4.5 X 10^3 (1.8-7.8); NEUTROPHILS % (AUTO) 48 % (42-75); PLATELET COUNT 237 10^3/uL (130-400); RED CELL DISTRIBUTION WIDTH 17.8 % (10.0-14.5); WHITE BLOOD COUNT 9.4 10^3/uL (4.3-11.0)
[2019-07-15 05:48] LABS: ALBUMIN 3.4 GM/DL (3.2-4.5); BILIRUBIN,TOTAL 0.2 MG/DL (0.1-1.0); CALCIUM 9.5 MG/DL (8.5-10.1); CREATININE SERUM 1.38 MG/DL (0.60-1.30); POTASSIUM 4.4 MMOL/L (3.6-5.0); TOTAL PROTEIN 5.8 GM/DL (6.4-8.2)
[2019-07-15 06:07] VITALS: BP 159/78
[2019-07-15] MEDS: PANTOPRAZOLE 40 MG (PROTONIX) TAB PO SCH (06:21)
[2019-07-15] MEDS: LEVOTHYROXINE 50 MCG (LEVOTHROID) TAB PO SCH (06:21)
--- NOTE | 2019-07-15 08:05 | PM&R Progress Note ---
Subjective HPI/CC On Admission Date Seen by Provider: Jul 15, 2019 Time Seen by Provider: 08:15 Subjective/Events-last exam Labs reviewed Creatinine 1.37 and Hgb 8.4 Two Miralax daily has helped the colostomy movements DAVID wraps will be provided to the lower extremities today 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 with property field inspector of Systems General: Fatigue Musculoskeletal: back pain, leg pain Objective Exam Vital Signs Vital Signs Date Time Temp Pulse Resp B/P (MAP) Pulse Ox O2 Delivery O2 Flow Rate FiO2 07/15/19 16:00 36.6 79 16 137/67 (90) 100 Room Air Capillary Refill : Less Than 3 Seconds General Appearance: No Apparent Distress, WD/WN, Chronically ill, Obese HEENT: PERRL/EOMI, Normal ENT Inspection, Pharynx Normal Neck: Full Range of Motion, Normal Inspection, Non Tender, Supple Respiratory: Chest Non Tender, Lungs Clear, Normal Breath Sounds, No Accessory Muscle Use, No Respiratory Distress Cardiovascular: Regular Rate, Rhythm, No Gallop, No JVD, No Murmur, Normal Peripheral Pulses Gastrointestinal: Normal Bowel Sounds, No Pulsatile Mass, Non Tender, Soft Back: Normal Inspection, No CVA Tenderness, No Vertebral Tenderness Extremity: Normal Capillary Refill, Normal Inspection, Normal Range of Motion, Non Tender, No Calf Tenderness, Pedal Edema Neurologic/Psychiatric: Alert, Oriented x3, No Motor/Sensory Deficits, Normal Mood/Affect, event lighting specialist II-XII Norm as Tested Skin: Normal Color Lymphatic: No Adenopathy Results/Procedures Lab Laboratory Tests 07/15/19 04:45 Patient resulted labs reviewed. FIM Transfers Therapy Code Descriptions/Definitions Functional [place] Measure: 0=Not Assessed/NA 4=Minimal Assistance 1=Total Assistance 5=Supervision or Setup 2=Maximal Assistance 6=Modified [place] 3=Moderate Assistance 7=Complete IndependenceSCALE: Activities may be completed with or without assistive devices. 3-Xjpmiyxfqa-lfsikqi completes the activity by him/herself with no assistance from a helper. 5-Set-up or Clean-up Assistance-helper sets up or cleans up; patient completes activity. [place] assists only prior to or following the activity. 4-Supervision or Touching Assistance-helper provides verbal cues and/or touchi ng/steadying and/or contact guard assistance as patient completes activity. Assistance may be provided throughout the activity or intermittently. 3-Partial/Moderate Assistance-helper does LESS THAN HALF the effort. [place] lifts, holds or supports trunk or limbs, but provides less than half the effort. 2-Substantial/Maximal Assistance-helper does MORE THAN HALF the effort. [place] lifts or holds trunk or limbs and provides more than half the effort. 9-Widmdrxfc-zcmhad does ALL the effort. Patient does none of the effort to complete the activity. Or, the assistance of 2 or more helpers is required for the patient to complete the activity. If activity was not attempted, code reason: 7-Patient Refused. 9-Not Applicable-not attempted and the patient did not perform the activity befo re the current illness, exacerbation or injury. 10-Not Attempted due to Environmental Limitations-(lack of equipment, weather restraints, etc.). 88-Not Attempted due to Medical Conditions or Safety Concerns. Transfers (B, C, W/C) (FIM): 3 Roll Left to Right (QC): 5 Sit to Lying (QC): 3 Sit to Stand (QC): 4 Chair/Ler-dk-Kqafg Xfer(QC): 4 Car Transfer (QC): 88 Gait Training Does the Patient Walk?: Yes Gait (FIM): 5 Distance: 200 x2 Walk 10 feet (QC): 4 Walk 50 ft with 2 Turns(QC): 4 Walk 150 ft (QC): 4 Walking 10ft/uneven surface-QC: 88 Gait Persons Needed: 1 Gait Assistive Device: FWW Wheelchair Training Does the Pt Use a Wheelchair?: No Distance: 50' Wheel 50 ft with 2 turns (QC): 3 (modA) Wheel 150 ft (QC): 9 Type of Wheelchair: Manual Stair Training Stair Training: Handrails/: 1 handrail (BUE on R handrail ascend ) #of Steps: 2 1 Step (curb) (QC): 4 (x30, unable to step up onto pink step with RLE, used blue balance pad to perform and pt able to lift RLE up and onto) 4 Steps (QC): 88 12 Steps (QC): 88 Stairs: Pattern: Step to Level of Assist: 4 Balance Picking up an Object (QC): 88 ADL-Treatment Eating (QC): 6 Oral Hygiene (QC): 6 (Pt stands at sink and completes with IND.) Shower/Bathe Self (QC): 4 (Pt able to reach all areas with LHS, completes with SBA during stance to complete bottom washing. Pt utilizes grab bars in shower for stability) Upper Body Dressing (QC): 6 (Pt gathers clothing from closet, completes with IND.) Lower Body Dressing (QC): 4 (Pt completes while sitting on shower seat, requires physical and verbal cues to complete donning socks and pants with AE due to decreased problem solving. ) On/Off Footwear (QC): 1 (TD, unable to reach top of socks) Toileting Hygiene (QC): 6 Toilet Transfer (QC): 6 Assessment/Plan Assessment and Plan Assess & Plan/Chief Complaint Assessment: Myopathy with debility Status post anasarca 40 pounds of diuresis at [place] New colostomy status Hypertension Volume overload with edema Severe anemia with iron deficiency ordered iron infusions Nausea with pain medication will start giving snack before meds given Sciatica right sided improved on lidocaine patch Plan: Checked meds and labs Inpatient rehabilitation protocol but is slower pace of 15/ Monitor nausea Supportive care Food before pain pill IV iron infusions ordered PCP to managing the right sided sciatica pain which is help with lidocaine patch so will DC prednisone DC next week Hopefully she can manage the colostomy at home (1) Myopathy Assessment & Plan: inpatient rehab (2) HFrEF (heart failure with reduced ejection fraction) Status: Acute Qualifiers: Heart failure chronicity: chronic Qualified Codes: I50.22 - Chronic systolic (congestive) heart failure (3) Hypothyroid Status: Chronic Assessment & Plan: continue levothyroxine (4) Acute on chronic kidney failure Status: Acute (5) Diverticulitis of intestine with perforation Status: Acute Assessment & Plan: s/p surgery 05/30/19 (6) Hypertension Qualifiers: Hypertension type: essential hypertension Qualified Codes: I10 - Essential (primary) hypertension (7) Anemia of chronic disease (8) Iron deficiency anemia Assessment & Plan: iron infusions (9) Right sided sciatica MATT NEWELL DO Jul 15, 2019 08:05 POS
[2019-07-15] MEDS: LIDOCAINE 4% (SALONPAS) PATCH TOP SCH (08:41)
[2019-07-15] MEDS: DOCUSATE SODIUM 100 MG (COLACE) CAP PO SCH (08:41)
[2019-07-15] MEDS: lisINopril 10 MG (PRINIVIL) TABLET PO SCH (08:41)
[2019-07-15] MEDS: SENNA W/DOCUSATE (SENOKOT S) TABLET PO SCH ×2 (08:41→20:44)
[2019-07-15] MEDS: GABAPENTIN 300 MG (NEURONTIN) CAP PO SCH ×3 (08:41→20:45)
[2019-07-15] MEDS: POLYETHYLENE GLYCOL 17 GM (MIRALAX) PACK PO SCH ×2 (08:41→20:44)
--- NOTE | 2019-07-15 12:21 | Occupational Ther Daily Note ---
OT Current Status-Daily Note Subjective Pt seen in bed, agreeable to OT tx session. States no pain. Mental Status/Objective Patient Orientation: Normal For Age ADL-Treatment Therapy Code Descriptions/Definitions Functional [place] Measure: 0=Not Assessed/NA 4=Minimal Assistance 1=Total Assistance 5=Supervision or Setup 2=Maximal Assistance 6=Modified [place] 3=Moderate Assistance 7=Complete IndependenceSCALE: Activities may be completed with or without assistive devices. 7-Vbydbmjupu-bzjxeno completes the activity by him/herself with no assistance from a helper. 5-Set-up or Clean-up Assistance-helper sets up or cleans up; patient completes activity. [place] assists only prior to or following the activity. 4-Supervision or Touching Assistance-helper provides verbal cues and/or touching/steadying and/or contact guard assistance as patient completes activity. Assistance may be provided throughout the activity or intermittently. 3-Partial/Moderate Assistance-helper does LESS THAN HALF the effort. [place] lifts, holds or supports trunk or limbs, but provides less than half the effort. 2-Substantial/Maximal Assistance-helper does MORE THAN HALF the effort. [place] lifts or holds trunk or limbs and provides more than half the effort. 7-Mzeqqjiir-vnhena does ALL the effort. Patient does none of the effort to complete the activity. Or, the assistance of 2 or more helpers is required for the patient to complete the activity. If activity was not attempted, code reason: 7-Patient Refused. 9-Not Applicable-not attempted and the patient did not perform the activity before the current illness, exacerbation or injury. 10-Not Attempted due to Environmental Limitations-(lack of equipment, weather restraints, etc.). 88-Not Attempted due to Medical Conditions or Safety Concerns. Eating (QC): 6 Oral Hygiene (QC): 4 (SUP during stance at sink) Shower/Bathe Self (QC): 4 (SUP during stance in shower) Upper Body Dressing (QC): 6 (Gathers clothing, completes with IND.) Lower Body Dressing (QC): 4 (SBA during pulling up past hips) Toileting Hygiene (QC): 6 Toilet Transfer (QC): 4 (SUP with FWW) Other Treatment Pt completes ADLs in room. Pt's nurse states need for DAVID bandage wraps for swelling. Pt educated on bandaging and other options for home use. Pt expresses interest in buying compression stockings for home use. DAVID bandaging placed BLE. Pt completes strengthening with therabands in chair, completes 2 sets of 10 e xercises focusing on back, biceps, triceps with moderate cues for placement of hands and tension. Pt ambulates with FWW to therapy gym, completes 10 minutes of 35 watt resistance on arm bike without SOB or c/o fatigue. Pt completes grabbing small items from floor with hotel operation manager, requires cues for safety and technique. pt return demonstrates with safety post-cues. Pt returns to room, sits in recliner chair, nursing present end of session, all needs met, call light in reach. Education OT Patient Education: Correct positioning, Exercise program, Home exercise program, Modified ADL techniques, Purpose of tx/functional activities, Safety issues, Transfer techniques, Use of adapted equipment Teaching Recipient: Patient Teaching Methods: Demonstration, Discussion Response to Teaching: Verbalize Understanding, Return Demonstration OT Short Term Goals Short Term Goals Upper Body Dressing(FIM): 4 (met) Lower Body Dressing(FIM): 3 (met) Toileting(FIM): 2 (met) Transfers (B,C,W/C) (FIM): 3 (met) Additional Short Term Goals: 1-Demonstrate ADL Tasks, 2-Verbalize Understanding, 3-ImproveStrength/[place] 1=Demonstrate adherence to instructed precautions during ADL tasks. 2=Patient will verbalize/demonstrate understanding of assistive devices/modifications for ADL. 3=Patient will improve strength/tolerance for activity to enable patient to perform ADL's. OT Fdc Goals Finishing Manager Goals Time Frame: Jul 11, 2019 Eating (QC): 6 (met) Oral Hygiene (QC): 6 (met) Shower/Bathe Self (QC): 5 Upper Body Dressing (QC): 6 (met) Lower Body Dressing (QC): 4 (met) On/Off Footwear (QC): 6 (met) Toileting Hygiene (QC): 4 (met) Toilet/Commode Transfer (QC): 6 (met) Additional Goals: 1-Demonstrate ADL Tasks, 2-Verbalize Understanding, 3- ImproveStrength/[place] 1=Demonstrate adherence to instructed precautions during ADL tasks. 2=Patient will verbalize/demonstrate understanding of assistive devices/modifications for ADL. 3=Patient will improve strength/tolerance for activity to enable patient to perform ADL's. OT Education/Plan Problem List/Assessment Assessment: Decreased Activ Tolerance, Decreased Safety Aware, Decreased UE Strength, Impaired Funct Balance, Impaired I ADL's, Impaired Self-Care Skills Discharge Recommendations Plan/Recommendations: Continue POC Treatment Plan/Plan of Care Treatment,Training & Education: Yes Patient would benefit from OT for education, treatment and training to promote independence in ADL's, mobility, safety and/or upper extremity function for ADL's. Plan of Care: ADL Retraining, Caregiver Training, Concurrent Therapy, Functional Mobility, Group Exercise/Act as Ind, UE Funct Exercise/Act, W/C Management Training Treatment Duration: Jul 11, 2019 Frequency: At least 5 of 7 days/Wk (IRF) Estimated Hrs Per Day: 1.5 hours per day Agreement: Yes Rehab Potential: Fair Time/GCodes Start Time: 09:30 Stop Time: 11:00 Total Time Billed (hr/min): 90 Billed Treatment Time 1, ADL 4 (60), EX 2 (30)= (90) CHRYSTAL HOPE OTR Jul 15, 2019 12:21 POS
--- NOTE | 2019-07-15 12:45 | NUR ---
Notified by OT that patient's legs have been wrapped with DAVID bandages for BLE edema. OT reports that patient has compression stockings at home, but does not wear them. Talked with patient about trying DALLIN hose while on the rehab unit. Patient states she is willing to wear thigh high DALLIN hose while on the rehab unit to see if edema improves. Notified RN. Order placed for thigh high DALLIN hose-on in morning and off at HS per Dr. Bello.
--- NOTE | 2019-07-15 14:24 | Physical Therapy Daily Note ---
PT Daily Note-Current Subjective Pt agreeable to Rx. States her son in law has "rigged up " some things at her house that make in out bed TRFs much easier and she has used these for quite some time. Pain Location: No Pain Reported Mental Status Patient Orientation: Normal For Age Transfers SCALE: Activities may be completed with or without assistive devices. 6-Chdrricvdb-vkrsanh completes the activity by him/herself with no assistance from a helper. 5-Set-up or Clean-up Assistance-helper sets up or cleans up; patient completes activity. [place] assists only prior to or following the activity. 4-Supervision or Touching Assistance-helper provides verbal cues and/or touching/steadying and/or contact guard assistance as patient completes activity. Assistance may be provided throughout the activity or intermittently. 3-Partial/Moderate Assistance-helper does LESS THAN HALF the effort. [place] lifts, holds or supports trunk or limbs, but provides less than half the effort. 2-Substantial/Maximal Assistance-helper does MORE THAN HALF the effort. [place] lifts or holds trunk or limbs and provides more than half the effort. 4-Sgzarovjn-hikiit does ALL the effort. Patient does none of the effort to complete the activity. Or, the assistance of 2 or more helpers is required for the patient to complete the activity. If activity was not attempted, code reason: 7-Patient Refused. 9-Not Applicable-not attempted and the patient did not perform the activity before the current illness, exacerbation or injury. 10-Not Attempted due to Environmental Limitations-(lack of equipment, weather restraints, etc.). 88-Not Attempted due to Medical Conditions or Safety Concerns. Transfers (B, C, W/C): 4 Roll Left to Right (QC): 5 Sit to Lying (QC): 5 Sit to Stand (QC): 4 Chair/Bif-ai-Ycmww Xfer(QC): 5 Bed to/from Chair: 5 TRFs in out chair with lift mechanism SBA, in out chair using arms of chair SBa, on off toilet SBA with BSC and rail use. Much emphasis on in out bed TRFs trying to simulate equipment she has at home Weight Bearing Right Lower Extremity: Right Full Weight Bearing Left Lower Extremity: Left Full Weight Bearing Gait Training Does the Patient Walk?: Yes Gait: 5 Walk 10 feet (QC): 5 Walk 50 ft with 2 Turns(QC): 5 Walk 150 ft (QC): 5 Gait Persons Needed: 1 Gait Assistive Device: FWW slow, flexed over FWW, worked on hip flexion and lifting legs /marching while walking to increase hip flexion Exercises Supine Ex: Ankle pumps, Rolling, Heel Slides, Scooting, Hip abd/add Supine Reps: 20 (x2) Seated Therapy Exercises: Ankle pumps, Sit to stand, Long arc quads, Hip flexion Seated Reps: 12 (x2) Standing: Marching Standing Reps: 20 NuStep Minutes: 10 NuStep Workload: 4 Assessment Current Status: Good Progress in out bed TRFs improved increased indep with use of rail and step at foot to lift LEs in to bed PT Short Term Goals Short Term Goals Time Frame: Jun 29, 2019 Wheelchair Distance: 50' PT Mcc Goals Mcc Goals PT Automobile Bumper Straightener Goals Time Frame: Jul 19, 2019 Sit to Lying (QC): 5 Lying-Sitting on Side/Bed(QC): 5 Sit to Stand (QC): 5 Roll Left to Right (QC): 5 Chair/Zxu-dl-Etzdh Xfer(QC): 5 Car Transfer (QC): 5 Does the Patient Walk: Yes Distance: 150' Walk 10 feet (QC): 4 (CGA) Walk 10ft-Uneven Surface(QC): 4 (CGA) Walk 50ft with 2 Turns (QC): 4 (CGA) Gait Assistive Device: FWW Does the Pt use WC or Scooter?: No 1 Step (curb) (QC): 3 ([place]) PT Plan Treatment/Plan Treatment Plan: Continue Plan of Care Treatment Plan: Bed Mobility, Education, Functional Activity [place], Functional Strength, Group Therapy, Gait, Safety, Therapeutic Exercise, Transfers Treatment Duration: Jul 19, 2019 Frequency: At least 5 of 7 days/Wk (IRF) Estimated Hrs Per Day: 1.5 hours per day Patient and/or Family Agrees t: Yes Safety Risks/Education Patient Education: Gait Training, Transfer Techniques, Correct Positioning, Disease Process, Safety Issues Teaching Recipient: Patient Teaching Methods: Demonstration, Discussion Response to Teaching: Verbalize Understanding, Return Demonstration, Reinforcement Needed Time/GCodes Time In: 1335 (1100) Time Out: 1405 (1200) Total Billed Treatment Time: 90 Total Billed Treatment 1x2,FA30,EX30m,GT30 DAR CHANEY SUPERINTENDENT [place] Jul 15, 2019 14:24 POS
--- NOTE | 2019-07-15 15:38 | Occ Therapy Rehab Re-Cert ---
OT Re-Certification Form Plan of Care: ADL Retraining, Caregiver Training, Concurrent Therapy, Functional Mobility, Group Exercise/Act as Ind, UE Funct Exercise/Act Dated 07/11/19 for re-certification Treatment Duration: July 29, 2019 Frequency: At least 5 of 7 days/Wk (IRF) Estimated Hrs Per Day: 1.5 hours per day Agreement: Yes Rehab Potential: Good OT Zoning Administrator Goals Mcc Goals Time Frame: Jul 25, 2019 Eating (QC): 6 Oral Hygiene (QC): 6 Shower/Bathe Self (QC): 6 Upper Body Dressing (QC): 6 Lower Body Dressing (QC): 6 On/Off Footwear (QC): 6 Toileting Hygiene (QC): 6 Toilet/Commode Transfer (QC): 6 Additional Goals: 1-Demonstrate ADL Tasks, 2-Verbalize Understanding, 3- ImproveStrength/Chuyita Additional Goals: 1-Demonstrate ADL Tasks, 2-Verbalize Understanding, 3- ImproveStrength/Chuyita 1=Demonstrate adherence to instructed precautions during ADL tasks. 2=Patient will verbalize/demonstrate understanding of assistive devices/modifications for ADL. 3=Patient will improve strength/tolerance for activity to enable patient to perform ADL's. CHRYSTAL HOPE OTR Jul 15, 2019 15:38 POS
[2019-07-15 16:00] VITALS: BP 137/67
--- NOTE | 2019-07-15 16:09 | NUR ---
provided prayer and Communion.
[2019-07-15] MEDS: ENOXAPARIN 40 MG/0.4 ML (LOVENOX) SYR SC SCH (17:29)
[2019-07-15] MEDS: ONDANSETRON 4 MG (ZOFRAN) ORAL DISSOLVE TAB PO PRN (18:00)
--- NOTE | 2019-07-15 18:35 | NUR ---
Patient started this shift with an empty colostomy bag, stoma appeared dry, and as usual, was laying a fraction below skin surface. Wafer was beginning to become loose, so to avoid leakage later, wafer was changed. After noon meal, hydration and exercise, patient had a large amount release into appliance bag. Bag changed, due to stool being thick and sticky. Later in the shift, at approximately 1730, patient complained of being nauseated. Colostomy bag was completely full of stool. Zofran given and bag emptied. Stool was loose and thin with some clear mucus-like substance. Stoma site checked during this time, stoma appears to be more inverted than it was before. Reported to Dr. Santos.
[2019-07-15] MEDS: LIDOCAINE PATCH REMOVAL TP SCH (20:45)
[2019-07-15] MEDS: MELATONIN 3 MG TABLET PO SCH (20:45)
[2019-07-15] MEDS: SIMvastatin 40 MG (ZOCOR) TAB PO SCH (20:45)
[2019-07-16 05:13] VITALS: BP 138/62
[2019-07-16] MEDS: LEVOTHYROXINE 50 MCG (LEVOTHROID) TAB PO SCH (06:12)
[2019-07-16] MEDS: PANTOPRAZOLE 40 MG (PROTONIX) TAB PO SCH (06:12)
[2019-07-16] MEDS: lisINopril 10 MG (PRINIVIL) TABLET PO SCH (08:17)
[2019-07-16] MEDS: POLYETHYLENE GLYCOL 17 GM (MIRALAX) PACK PO SCH ×2 (08:17→20:43)
[2019-07-16] MEDS: DOCUSATE SODIUM 100 MG (COLACE) CAP PO SCH (08:17)
[2019-07-16] MEDS: GABAPENTIN 300 MG (NEURONTIN) CAP PO SCH ×3 (08:17→20:44)
[2019-07-16] MEDS: SENNA W/DOCUSATE (SENOKOT S) TABLET PO SCH ×2 (08:17→20:43)
[2019-07-16] MEDS: LIDOCAINE 4% (SALONPAS) PATCH TOP SCH (08:17)
--- NOTE | 2019-07-16 08:35 | PM&R Progress Note ---
Subjective HPI/CC On Admission Date Seen by Provider: Jul 16, 2019 Time Seen by Provider: 08:15 Subjective/Events-last exam Discharge is planned on Monday. Colostomy is functioning well. Lipomas will be addressed by PCP. Juan hose will be placed today for lower extremity edema. Overall doing much better. 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 with weight engineer of Systems General: Fatigue, Malaise Objective Exam Vital Signs Vital Signs Date Time Temp Pulse Resp B/P (MAP) Pulse Ox O2 Delivery O2 Flow Rate FiO2 07/16/19 17:31 37.4 64 18 103/63 (76) 99 Room Air Capillary Refill : Less Than 3 Seconds General Appearance: No Apparent Distress, WD/WN, Chronically ill, Obese HEENT: PERRL/EOMI, Normal ENT Inspection, Pharynx Normal Neck: Full Range of Motion, Normal Inspection, Non Tender, Supple Respiratory: Chest Non Tender, Lungs Clear, Normal Breath Sounds, No Accessory Muscle Use, No Respiratory Distress Cardiovascular: Regular Rate, Rhythm, No Gallop, No JVD, No Murmur, Normal Peripheral Pulses Gastrointestinal: Normal Bowel Sounds, No Pulsatile Mass, Non Tender, Soft Back: Normal Inspection, No CVA Tenderness, No Vertebral Tenderness Extremity: Normal Capillary Refill, Normal Inspection, Normal Range of Motion, Non Tender, No Calf Tenderness, Pedal Edema Neurologic/Psychiatric: Alert, Oriented x3, No Motor/Sensory Deficits, Normal Mood/Affect, glass forming engineer II-XII Norm as Tested Skin: Normal Color Lymphatic: No Adenopathy Results/Procedures Lab Patient resulted labs reviewed. FIM Transfers Therapy Code Descriptions/Definitions Functional [place] Measure: 0=Not Assessed/NA 4=Minimal Assistance 1=Total Assistance 5=Supervision or Setup 2=Maximal Assistance 6=Modified [place] 3=Moderate Assistance 7=Complete IndependenceSCALE: Activities may be completed with or without assistive devices. 1-Nwbgmnvnqr-dusjqsa completes the activity by him/herself with no assistance from a helper. 5-Set-up or Clean-up Assistance-helper sets up or cleans up; patient completes activity. [place] assists only prior to or following the activity. 4-Supervision or Touching Assistance-helper provides verbal cues and/or touching/steadying and/or contact guard assistance as patient completes act ivity. Assistance may be provided throughout the activity or intermittently. 3-Partial/Moderate Assistance-helper does LESS THAN HALF the effort. [place] lifts, holds or supports trunk or limbs, but provides less than half the effort. 2-Substantial/Maximal Assistance-helper does MORE THAN HALF the effort. [place] lifts or holds trunk or limbs and provides more than half the effort. 2-Vwqtlffjc-ckjizh does ALL the effort. Patient does none of the effort to complete the activity. Or, the assistance of 2 or more helpers is required for the patient to complete the activity. If activity was not attempted, code reason: 7-Patient Refused. 9-Not Applicable-not attempted and the patient did not perform the activity before the current illness, exacerbation or injury. 10-Not Attempted due to Environmental Limitations-(lack of equipment, weather restraints, etc.). 88-Not Attempted due to Medical Conditions or Safety Concerns. Transfers (B, C, W/C) (FIM): 4 Roll Left to Right (QC): 5 Sit to Lying (QC): 5 Sit to Stand (QC): 4 Chair/Bxo-wp-Dvoxy Xfer(QC): 5 Bed to/from Chair: 5 Car Transfer (QC): 88 Gait Training Does the Patient Walk?: Yes Gait (FIM): 5 Distance: 200 x2 Walk 10 feet (QC): 5 Walk 50 ft with 2 Turns(QC): 5 Walk 150 ft (QC): 5 Walking 10ft/uneven surface-QC: 88 Gait Persons Needed: 1 Gait Assistive Device: FWW Wheelchair Training Does the Pt Use a Wheelchair?: No Distance: 50' Wheel 50 ft with 2 turns (QC): 3 (modA) Wheel 150 ft (QC): 9 Type of Wheelchair: Manual Stair Training Stair Training: Handrails/: 1 handrail (BUE on R handrail ascend ) #of Steps: 2 1 Step (curb) (QC): 4 (x30, unable to step up onto pink step with RLE, used blue balance pad to perform and pt able to lift RLE up and onto) 4 Steps (QC): 88 12 Steps (QC): 88 Stairs: Pattern: Step to Level of Assist: 4 Balance Picking up an Object (QC): 88 ADL-Treatment Eating (QC): 6 Oral Hygiene (QC): 4 (SUP during stance at sink) Shower/Bathe Self (QC): 4 (SUP during stance in shower) Upper Body Dressing (QC): 6 (Gathers clothing, completes with IND.) Lower Body Dressing (QC): 4 (SBA during pulling up past hips) On/Off Footwear (QC): 1 (TD, unable to reach top of socks) Toileting Hygiene (QC): 6 Toilet Transfer (QC): 4 (SUP with FWW) Assessment/Plan Assessment and Plan Assess & Plan/Chief Complaint Assessment: Myopathy with debility Status post anasarca 40 pounds of diuresis at [place] New colostomy status Hypertension Volume overload with edema Severe anemia with iron deficiency ordered iron infusions Nausea with pain medication will start giving snack before meds given Sciatica right sided improved on lidocaine patch Plan: Checked meds and labs Inpatient rehabilitation protocol but is slower pace of 11/03 Monitor nausea Supportive care Food before pain pill IV iron infusions ordered PCP to managing the right sided sciatica pain which is help with lidocaine patch so will DC prednisone DC this week Hopefully she can manage the colostomy at home (1) Myopathy Assessment & Plan: inpatient rehab (2) HFrEF (heart failure with reduced ejection fraction) Status: Acute Qualifiers: Heart failure chronicity: chronic Qualified Codes: I50.22 - Chronic systolic (congestive) heart failure (3) Hypothyroid Status: Chronic Assessment & Plan: continue levothyroxine (4) Acute on chronic kidney failure Status: Acute (5) Diverticulitis of intestine with perforation Status: Acute Assessment & Plan: s/p surgery 05/30/19 (6) Hypertension Qualifiers: Hypertension type: essential hypertension Qualified Codes: I10 - Essential (primary) hypertension (7) Anemia of chronic disease (8) Iron deficiency anemia Assessment & Plan: iron infusions (9) Right sided sciatica MATT NEWELL DO Jul 16, 2019 08:35 POS
--- NOTE | 2019-07-16 08:58 | Physical Therapy Daily Note ---
PT Daily Note-Current Subjective Pt agreeable to PT session. Report of upset stomach and requesting med from nsg Pain Numeric Pain Scale: 4 Comment: BLE's stating "legs are angry" Appearance Pt in bathroom upon arrival. Requesting to wash hands and brush teeth. At end of session, pt sitting up in recliner with call light, phone and bedside table within reach. Mental Status Patient Orientation: Person, Place, Time, Eyes Open, Situation, Normal For Age Attachments: Colostomy/Ileostomy Transfers SCALE: Activities may be completed with or without assistive devices. 2-Otsrajlxes-doszowk completes the activity by him/herself with no assistance from a helper. 5-Set-up or Clean-up Assistance-helper sets up or cleans up; patient completes activity. [place] assists only prior to or following the activity. 4-Supervision or Touching Assistance-helper provides verbal cues and/or touching/steadying and/or contact guard assistance as patient completes activity. Assistance may be provided throughout the activity or intermittently. 3-Partial/Moderate Assistance-helper does LESS THAN HALF the effort. [place] lifts, holds or supports trunk or limbs, but provides less than half the effort. 2-Substantial/Maximal Assistance-helper does MORE THAN HALF the effort. [place] lifts or holds trunk or limbs and provides more than half the effort. 3-Plngmedoa-vferpn does ALL the effort. Patient does none of the effort to complete the activity. Or, the assistance of 2 or more helpers is required for the patient to complete the activity. If activity was not attempted, code reason: 7-Patient Refused. 9-Not Applicable-not attempted and the patient did not perform the activity before the current illness, exacerbation or injury. 10-Not Attempted due to Environmental Limitations-(lack of equipment, weather restraints, etc.). 88-Not Attempted due to Medical Conditions or Safety Concerns. Roll Left & Right (QC): 3 (skilled verb inst for technique required, rolling R slow and with great effort and use of bedrail, rolling L min A, slow, increased effort and use of bedrail) Sit to Lying (QC): 5 Lying to Sitting/Side of Bed(Q: 5 (x2 with great effort and strong encouragemtn. x1 with use of leg rotary dump operator due to R hip adductor and flexor weakness) Sit to Stand (QC): 6 Chair/Szl-ye-Rjxxp Xfer(QC): 5 Weight Bearing Right Lower Extremity: Right Full Weight Bearing Left Lower Extremity: Left Full Weight Bearing Gait Training Does the Patient Walk?: Yes Distance: 15, 50 Walk 10 feet (QC): 5 Walk 50 ft with 2 Turns(QC): 5 Gait Persons Needed: 1 Gait Assistive Device: FWW slow pace, slight fwd flexed, decreased step height, skilled instruction for high stepping randy RLE Exercises Supine Ex: Bridging (minimal lift), Ankle pumps (50), Rolling (L and R requiri ng min A to L, slow and with great effort to R), Heel Slides (2 x10, Friction eliminated, pt unable to perform actively against mattress), Scooting (5, very slow with great effort), Hip abd/add (2 x10, RLE AAROM for ADD, AROM ABD) Seated Therapy Exercises: Ankle pumps (10), Sit to stand (5), Long arc quads (10), Hip flexion (10, RLE min motion) Treatments toileting, chelsie care, balance at sink washing hands and brushing teeth, transfers, gait, bed mobility, activity tolerance, strength, balance, functional mobility Assessment Current Status: Good Progress Slow performing all activities, continues with decreased strength randy R hip ADD and flex, incorporated and instructed in use of leg rotary dump operator supine to sit PT Short Term Goals Short Term Goals Time Frame: Jun 29, 2019 PT Senior Report Developer Goals Assisted Goals PT Assisted Goals Time Frame: Jul 19, 2019 Roll Left & Right (QC): 5 Sit to Lying (QC): 5 Lying-Sitting on Side/Bed(QC): 5 Sit to Stand (QC): 5 Chair/Sqi-bq-Nbgjk Xfer(QC): 5 Toilet Transfer (QC): 6 (met) Car Transfer (QC): 5 Does the Patient Walk: Yes Walk 10 feet (QC): 4 (CGA) Walk 50ft with 2 Turns (QC): 4 (CGA) Walk 150 ft (QC): 4 Walking 10ft on Uneven Surface: 4 (CGA) 1 Step (curb) (QC): 3 (Mildred) 4 Steps (QC): 4 12 Steps (QC): 10 Picking up an Object (QC): 88 Does the Pt use WC or Scooter?: No Type: N/A Type: N/A PT Plan Treatment/Plan Treatment Plan: Continue Plan of Care Treatment Plan: Bed Mobility, Education, Functional Activity Chuyita, Functional Strength, Group Therapy, Gait, Safety, Therapeutic Exercise, Transfers Treatment Duration: Jul 19, 2019 Frequency: At least 5 of 7 days/Wk (IRF) Estimated Hrs Per Day: 1.5 hours per day Patient and/or Family Agrees t: Yes Safety Risks/Education Patient Education: Gait Training, Transfer Techniques, Correct Positioning, Safety Issues Teaching Recipient: Patient Teaching Methods: Demonstration, Discussion Response to Teaching: Verbalize Understanding, Return Demonstration, Reinforcement Needed Time/GCodes Time In: 800 Time Out: 900 Total Billed Treatment Time: 60 Total Billed Treatment 1 visit, EX x 15 min, FA x45 min VERA PORTILLO PTA Jul 16, 2019 08:58 POS
[2019-07-16] MEDS: ONDANSETRON 4 MG (ZOFRAN) ORAL DISSOLVE TAB PO PRN (09:01)
[2019-07-16] MEDS: CALCIUM CARBONATE 500 MG (TUMS) TAB.CHEW PO PRN (09:01)
--- NOTE | 2019-07-16 10:33 | NUR ---
Patient reported her daughter brought the box of ostomy supplies to the hospital. Patient would like for her daughter to be present for ostomy education; however, patient is unsure of her daughter's work schedule. Patient will provide daughter's cell phone number to this worker to arrange education.
--- NOTE | 2019-07-16 11:47 | NUR ---
Patient provided her daughter's cell phone number to this worker. Notified Montse Lawler RN regarding ostomy supplies and teaching. Montse Lawler RN has patient's daughter's cell phone number and will contact her to arrange a time for education.
[2019-07-16] MEDS: HYDROcodone/APAP 5 MG/325 MG (LORTAB) TAB PO PRN ×3 (11:51→21:23)
--- NOTE | 2019-07-16 13:06 | Occupational Ther Daily Note ---
OT Current Status-Daily Note Subjective Pt sitting in chair, agrees to therapy. Pt states she is not having any pain, but reports indigestion. ADL-Treatment Pt declined bathing, but would like to change clothes. Pt sit to stand with supervision. Gait to closet with FWW. Pt retrieved clothing from close using FWW for balance. Pt doffed shirt without assist. Donned shirt with SBA. Doffed pants with SBA. Pt able to thread bilateral LE into pants, stood without LOB during pant hike. Pt retrieved dirty clothing from floor using asbestos brake lining finisher and placed them in a sack. Gait to laundry room with FWW. Pt placed clothing in washer and adjusted settings with supervision. Pt returned later in session and switched laundry to dryer with SBA. Pt fatigues with activity and requires occasional rest breaks during ADL tasks. Therapy Code Descriptions/Definitions Functional [place] Measure: 0=Not Assessed/NA 4=Minimal Assistance 1=Total Assistance 5=Supervision or Setup 2=Maximal Assistance 6=Modified [place] 3=Moderate Assistance 7=Complete IndependenceSCALE: Activities may be completed with or without assistive devices. 0-Wxmppbrvcz-gbatctt completes the activity by him/herself with no assistance from a helper. 5-Set-up or Clean-up Assistance-helper sets up or cleans up; patient completes activity. [place] assists only prior to or following the activity. 4-Supervision or Touching Assistance-helper provides verbal cues and/or touching/steadying and/or contact guard assistance as patient completes activity. Assistance may be provided throughout the activity or intermittently. 3-Partial/Moderate Assistance-helper does LESS THAN HALF the effort. [place] lifts, holds or supports trunk or limbs, but provides less than half the effort. 2-Substantial/Maximal Assistance-helper does MORE THAN HALF the effort. [place] lifts or holds trunk or limbs and provides more than half the effort. 5-Uonrplhnf-acazrg does ALL the effort. Patient does none of the effort to complete the activity. Or, the assistance of 2 or more helpers is required for the patient to complete the activity. If activity was not attempted, code reason: 7-Patient Refused. 9-Not Applicable-not attempted and the patient did not perform the activity before the current illness, exacerbation or injury. 10-Not Attempted due to Environmental Limitations-(lack of equipment, weather restraints, etc.). 88-Not Attempted due to Medical Conditions or Safety Concerns. Upper Body Dressing (QC): 5 Lower Body Dressing (QC): 5 Other Treatment Gait to therapy gym with FWW, slow pace. Pt completed bilateral UE exercises x10 reps with red theraband. Rest breaks between exercises. Occasional cues required for proper exercise technique. Arm bike x12 minutes to increase overall strength and activity tolerance needed for functional task completion. Pt completed activity with minimal resistance and steady pace. No rest breaks needed. Fine motor task with nuts and bolts with 1# weights in place to increase strength and coordination skills. Pt completed task with increased time. Pt returned to room, sitting in chair with needs met after session. OT Correction Goals Correction Goals Time Frame: Jul 25, 2019 Eating (QC): 6 (met) Oral Hygiene (QC): 6 (met) Toileting Hygiene (QC): 4 (met) Shower/Bathe Self (QC): 5 Upper Body Dressing (QC): 6 (met) Lower Body Dressing (QC): 4 (met) On/Off Footwear (QC): 6 (met) Eating (QC): 6 Oral Hygiene (QC): 6 Shower/Bathe Self (QC): 6 Upper Body Dressing (QC): 6 Lower Body Dressing (QC): 6 On/Off Footwear (QC): 6 Toileting Hygiene (QC): 6 Toilet/Commode Transfer (QC): 6 Additional Goals: 1-Demonstrate ADL Tasks, 2-Verbalize Understanding, 3- ImproveStrength/Chuyita Additional Goals: 1-Demonstrate ADL Tasks, 2-Verbalize Understanding, 3- ImproveStrength/Chuyita 1=Demonstrate adherence to instructed precautions during ADL tasks. 2=Patient will verbalize/demonstrate understanding of assistive devices/modifications for ADL. 3=Patient will improve strength/tolerance for activity to enable patient to perform ADL's. OT Education/Plan Discharge Recommendations Plan/Recommendations: Continue POC Treatment Plan/Plan of Care Patient would benefit from OT for education, treatment and training to promote independence in ADL's, mobility, safety and/or upper extremity function for ADL's. Plan of Care: ADL Retraining, Caregiver Training, Concurrent Therapy, Functional Mobility, Group Exercise/Act as Ind, UE Funct Exercise/Act Treatment Duration: Jul 11, 2019 Frequency: At least 5 of 7 days/Wk (IRF) Estimated Hrs Per Day: 1.5 hours per day Agreement: Yes Rehab Potential: Good Time/GCodes Start Time: 09:30 Stop Time: 11:00 Total Time Billed (hr/min): 90 Billed Treatment Time 1 visit, ADLx3(45minutes), EXx3(45minutes) DEEPAK COLLINS OT Jul 16, 2019 13:06 POS
--- NOTE | 2019-07-16 13:32 | NUR ---
provided prayer and Communion.
--- NOTE | 2019-07-16 14:58 | Physical Therapy Daily Note ---
PT Daily Note-Current Subjective Pt agreeable to PT session. States her DALLIN hose are cutting into her and requesting them to be removed. After DALLIN hose removed pt stating "it was torture with those on". Nsg notified Pain Numeric Pain Scale: 0-No Pain Appearance Pt sitting up in recliner awake and alert upon arrival. Pt requesting and was assisted with removing DALLIN hose, notified nurse. At end of session, pt sitting up in recliner with call light, phone and bedside table within reach. Mental Status Patient Orientation: Person, Place, Time, Eyes Open, Situation Transfers SCALE: Activities may be completed with or without assistive devices. 3-Pxcfxkxrrf-iaafhfl completes the activity by him/herself with no assistance f rom a helper. 5-Set-up or Clean-up Assistance-helper sets up or cleans up; patient completes activity. [place] assists only prior to or following the activity. 4-Supervision or Touching Assistance-helper provides verbal cues and/or touching/steadying and/or contact guard assistance as patient completes activity. Assistance may be provided throughout the activity or intermittently. 3-Partial/Moderate Assistance-helper does LESS THAN HALF the effort. [place] lifts, holds or supports trunk or limbs, but provides less than half the effort. 2-Substantial/Maximal Assistance-helper does MORE THAN HALF the effort. [place] lifts or holds trunk or limbs and provides more than half the effort. 7-Ygdljtvyz-plzdjp does ALL the effort. Patient does none of the effort to complete the activity. Or, the assistance of 2 or more helpers is required for the patient to complete the activity. If activity was not attempted, code reason: 7-Patient Refused. 9-Not Applicable-not attempted and the patient did not perform the activity before the current illness, exacerbation or injury. 10-Not Attempted due to Environmental Limitations-(lack of equipment, weather restraints, etc.). 88-Not Attempted due to Medical Conditions or Safety Concerns. Sit to Stand (QC): 5 Pt demo good safe techniques with sit to and from stand transfers, able to stand upon 1st attempt, steady with initial stance Weight Bearing Right Lower Extremity: Right Full Weight Bearing Left Lower Extremity: Left Full Weight Bearing Gait Training Does the Patient Walk?: Yes Distance: 150 x2 Walk 10 feet (QC): 5 Walk 50 ft with 2 Turns(QC): 5 Walk 150 ft (QC): 5 Gait Assistive Device: FWW slight fwd flexed posture, decreased step length and height, able to improve with skilled verb inst Exercises NuStep Minutes: 12 NuStep Workload: 5 Treatments education, safety, assist doffing DALLIN hose, transfers, gait, strength, balance, activity tolerance, functional mobility Assessment Current Status: Good Progress Pt is slow with all activities PT Short Term Goals Short Term Goals Time Frame: Jun 29, 2019 PT Churner Goals Churner Goals PT Churner Goals Time Frame: Jul 19, 2019 Roll Left & Right (QC): 5 Sit to Lying (QC): 5 Lying-Sitting on Side/Bed(QC): 5 Sit to Stand (QC): 5 Chair/Dnt-dz-Asfjf Xfer(QC): 5 Toilet Transfer (QC): 6 (met) Car Transfer (QC): 5 Does the Patient Walk: Yes Walk 10 feet (QC): 4 (CGA) Walk 50ft with 2 Turns (QC): 4 (CGA) Walk 150 ft (QC): 4 Walking 10ft on Uneven Surface: 4 (CGA) 1 Step (curb) (QC): 3 (Mildred) 4 Steps (QC): 4 12 Steps (QC): 10 Picking up an Object (QC): 88 Does the Pt use WC or Scooter?: No Type: N/A Type: N/A PT Plan Treatment/Plan Treatment Plan: Continue Plan of Care Treatment Plan: Bed Mobility, Education, Functional Activity Chuyita, Functional Strength, Group Therapy, Gait, Safety, Therapeutic Exercise, Transfers Treatment Duration: Jul 19, 2019 Frequency: At least 5 of 7 days/Wk (IRF) Estimated Hrs Per Day: 1.5 hours per day Patient and/or Family Agrees t: Yes Safety Risks/Education Patient Education: Gait Training, Transfer Techniques, Safety Issues Teaching Recipient: Patient Teaching Methods: Discussion Response to Teaching: Verbalize Understanding Time/GCodes Time In: 1330 Time Out: 1400 Total Billed Treatment Time: 30 Total Billed Treatment 1 visit, EX x12, GT x18 BANDARVERA PIPE STRIPPER Jul 16, 2019 14:58 POS
--- NOTE | 2019-07-16 17:05 | NUR ---
Spoke with pt and pt daughter reference ostomy supplies. Pt daughter had brought in [place] sample supplies from [employer]. Reviewed ostomy and supplies, how to change ostomy, how to contact [place], and different accessories available. Pt and pt daughter verbalized understanding and had no further questions at this time.
[2019-07-16 17:31] VITALS: BP 103/63
[2019-07-16] MEDS: ENOXAPARIN 40 MG/0.4 ML (LOVENOX) SYR SC SCH (18:07)
[2019-07-16] MEDS: SIMvastatin 40 MG (ZOCOR) TAB PO SCH (20:43)
[2019-07-16] MEDS: MELATONIN 3 MG TABLET PO SCH (20:44)
[2019-07-16] MEDS: LIDOCAINE PATCH REMOVAL TP SCH (20:44)
[2019-07-17] MEDS: HYDROcodone/APAP 5 MG/325 MG (LORTAB) TAB PO PRN ×3 (02:41→21:03)
[2019-07-17 05:12] VITALS: BP 123/70
[2019-07-17] MEDS: LEVOTHYROXINE 50 MCG (LEVOTHROID) TAB PO SCH (06:32)
[2019-07-17] MEDS: PANTOPRAZOLE 40 MG (PROTONIX) TAB PO SCH (06:32)
--- NOTE | 2019-07-17 07:47 | PM&R Progress Note ---
Subjective HPI/CC On Admission Date Seen by Provider: Jul 17, 2019 Time Seen by Provider: 08:15 Subjective/Events-last exam Jaime Ostomy Nurse will manage the colostomy but she needs to learn since her family and home health will not be there 20/03 Supplies for colostomy are there in the room Moving around pretty well but I am still concerned about her colostomy [facility] will need to change wound 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 with oracle ebs architect of Systems General: Fatigue Gastrointestinal: Constipation Objective Exam Vital Signs Vital Signs Date Time Temp Pulse Resp B/P (MAP) Pulse Ox O2 Delivery O2 Flow Rate FiO2 07/17/19 18:52 37.0 64 20 115/69 (84) 99 Room Air Capillary Refill : Less Than 3 Seconds General Appearance: No Apparent Distress, WD/WN, Chronically ill, Obese HEENT: PERRL/EOMI, Normal ENT Inspection, Pharynx Normal Neck: Full Range of Motion, Normal Inspection, Non Tender, Supple Respiratory: Chest Non Tender, Lungs Clear, Normal Breath Sounds, No Accessory Muscle Use, No Respiratory Distress Cardiovascular: Regular Rate, Rhythm, No Gallop, No JVD, No Murmur, Normal Peripheral Pulses Gastrointestinal: Normal Bowel Sounds, No Pulsatile Mass, Non Tender, Soft Back: Normal Inspection, No CVA Tenderness, No Vertebral Tenderness Extremity: Normal Capillary Refill, Normal Inspection, Normal Range of Motion, Non Tender, No Calf Tenderness, Pedal Edema Neurologic/Psychiatric: Alert, Oriented x3, No Motor/Sensory Deficits, Normal Mood/Affect, lithographic stripper II-XII Norm as Tested Skin: Normal Color Lymphatic: No Adenopathy Results/Procedures Lab Patient resulted labs reviewed. FIM Transfers Therapy Code Descriptions/Definitions Functional [place] Measure: 0=Not Assessed/NA 4=Minimal Assistance 1=Total Assistance 5=Supervision or Setup 2=Maximal Assistance 6=Modified [place] 3=Moderate Assistance 7=Complete IndependenceSCALE: Activities may be completed with or without assistive devices. 8-Cgpfvngrzq-ylgiail completes the activity by him/herself with no assistance from a helper. 5-Set-up or Clean-up Assistance-helper sets up or cleans up; patient completes activity. [place] assists only prior to or following the activity. 4-Supervision or Touching Assistance-helper provides verbal cues and/or touching/steadying and/or contact guard assistance as patient completes activity. Assistance may be provided throughout the activity or intermittently. 3-Partial/Moderate Assistance-helper does LESS THAN HALF the effort. [place] lifts, holds or supports trunk or limbs, but provides less than half the effort. 2-Substantial/Maximal Assistance-helper does MORE THAN HALF the effort. [place] lifts or holds trunk or limbs and provides more than half the effort. 6-Aeypqhqgi-ocorit does ALL the effort. Patient does none of the effort to complete the activity. Or, the assistance of 2 or more helpers is required for the patient to complete the activity. If activity was not attempted, code reason: 7-Patient Refused. 9-Not Applicable-not attempted and the patient did not perform the activity before the current illness, exacerbation or injury. 10-Not Attempted due to Environmental Limitations-(lack of equipment, weather restraints, etc.). 88-Not Attempted due to Medical Conditions or Safety Concerns. Transfers (B, C, W/C) (FIM): 4 Roll Left to Right (QC): 3 (skilled verb inst for technique required, rolling R slow and with great effort and use of bedrail, rolling L min A, slow, increased effort and use of bedrail) Sit to Lying (QC): 5 Sit to Stand (QC): 5 Chair/Ije-bw-Dbrhj Xfer(QC): 5 Bed to/from Chair: 5 Car Transfer (QC): 88 Gait Training Does the Patient Walk?: Yes Gait (FIM): 5 Distance: 150 x2 Walk 10 feet (QC): 5 Walk 50 ft with 2 Turns(QC): 5 Walk 150 ft (QC): 5 Walking 10ft/uneven surface-QC: 88 Gait Persons Needed: 1 Gait Assistive Device: FWW Wheelchair Training Does the Pt Use a Wheelchair?: No Distance: 50' Wheel 50 ft with 2 turns (QC): 3 (modA) Wheel 150 ft (QC): 9 Type of Wheelchair: Manual Stair Training Stair Training: Handrails/: 1 handrail (BUE on R handrail ascend ) #of Steps: 2 1 Step (curb) (QC): 4 (x30, unable to step up onto pink step with RLE, used blue balance pad to perform and pt able to lift RLE up and onto) 4 Steps (QC): 88 12 Steps (QC): 88 Stairs: Pattern: Step to Level of Assist: 4 Balance Picking up an Object (QC): 88 ADL-Treatment Eating (QC): 6 Oral Hygiene (QC): 4 (SUP during stance at sink) Shower/Bathe Self (QC): 4 (SUP during stance in shower) Upper Body Dressing (QC): 5 Lower Body Dressing (QC): 5 On/Off Footwear (QC): 1 (TD, unable to reach top of socks) Toileting Hygiene (QC): 6 Toilet Transfer (QC): 4 (SUP with FWW) Assessment/Plan Assessment and Plan Assess & Plan/Chief Complaint Assessment: Myopathy with debility Status post anasarca 40 pounds of diuresis at [place] New colostomy status Hypertension Volume overload with edema Severe anemia with iron deficiency ordered iron infusions Nausea with pain medication will start giving snack before meds given Sciatica right sided improved on lidocaine patch Plan: Checked meds and labs Inpatient rehabilitation protocol but is slower pace of 15/7 Monitor nausea Supportive care Food before pain pill IV iron infusions ordered PCP to managing the right sided sciatica pain which is help with lidocaine patch so will DC prednisone DC Monday Hopefully she can manage the colostomy at home (1) Myopathy Assessment & Plan: inpatient rehab (2) HFrEF (heart failure with reduced ejection fraction) Status: Acute Qualifiers: Heart failure chronicity: chronic Qualified Codes: I50.22 - Chronic systolic (congestive) heart failure (3) Hypothyroid Status: Chronic Assessment & Plan: continue levothyroxine (4) Acute on chronic kidney failure Status: Acute (5) Diverticulitis of intestine with perforation Status: Acute Assessment & Plan: s/p surgery 05/30/19 (6) Hypertension Qualifiers: Hypertension type: essential hypertension Qualified Codes: I10 - Essential (primary) hypertension (7) Anemia of chronic disease (8) Iron deficiency anemia Assessment & Plan: iron infusions (9) Right sided sciatica MATT NEWELL DO Jul 17, 2019 07:47 POS
[2019-07-17] MEDS: DOCUSATE SODIUM 100 MG (COLACE) CAP PO SCH (09:01)
[2019-07-17] MEDS: lisINopril 10 MG (PRINIVIL) TABLET PO SCH (09:02)
[2019-07-17] MEDS: SENNA W/DOCUSATE (SENOKOT S) TABLET PO SCH ×2 (09:02→21:02)
[2019-07-17] MEDS: GABAPENTIN 300 MG (NEURONTIN) CAP PO SCH ×3 (09:02→21:02)
[2019-07-17] MEDS: LIDOCAINE 4% (SALONPAS) PATCH TOP SCH (09:02)
[2019-07-17] MEDS: POLYETHYLENE GLYCOL 17 GM (MIRALAX) PACK PO SCH ×2 (09:03→21:02)
--- NOTE | 2019-07-17 09:31 | NUR ---
Met with patient to discuss discharge planned for 07/19/19. Patient reported Montse Lawler RN met with her and her daughter yesterday for colostomy education. Patient reported education went well and that she is ready for discharge on Monday. Patient stated her son-in-law will need to take off work to pick her up from the hospital and take her home. Patient requested dc at 1100 on Monday. Will follow up with patient this afternoon after weekly team conference to finalize discharge plans.
--- NOTE | 2019-07-17 09:53 | Physical Therapy Daily Note ---
PT Daily Note-Current Subjective Pt agreeable to PT session. States she is going home on Monday. States she thinks she will be sleeping in recliner at night after going home until she is strong enough to get in and out of bed on her own with less difficulty Pain Numeric Pain Scale: 0-No Pain Appearance Pt sitting up in recliner upon arrival, awake and alert. At end of session, pt sitting up in recliner with call light, phone and bedside table within reach Mental Status Patient Orientation: Normal For Age Attachments: Colostomy/Ileostomy Transfers SCALE: Activities may be completed with or without assistive devices. 2-Avwszrumng-acdksqr completes the activity by him/herself with no assistance fr om a helper. 5-Set-up or Clean-up Assistance-helper sets up or cleans up; patient completes activity. [place] assists only prior to or following the activity. 4-Supervision or Touching Assistance-helper provides verbal cues and/or touching/steadying and/or contact guard assistance as patient completes activity. Assistance may be provided throughout the activity or intermittently. 3-Partial/Moderate Assistance-helper does LESS THAN HALF the effort. [place] lifts, holds or supports trunk or limbs, but provides less than half the effort. 2-Substantial/Maximal Assistance-helper does MORE THAN HALF the effort. [place] lifts or holds trunk or limbs and provides more than half the effort. 1-Ucazxopsr-nzhcgw does ALL the effort. Patient does none of the effort to complete the activity. Or, the assistance of 2 or more helpers is required for the patient to complete the activity. If activity was not attempted, code reason: 7-Patient Refused. 9-Not Applicable-not attempted and the patient did not perform the activity before the current illness, exacerbation or injury. 10-Not Attempted due to Environmental Limitations-(lack of equipment, weather restraints, etc.). 88-Not Attempted due to Medical Conditions or Safety Concerns. Roll Left & Right (QC): 3 (Mod I rolling R, min A with RLE rolling L) Sit to Lying (QC): 5 Lying to Sitting/Side of Bed(Q: 5 (use of leg snack foods mixer operator 1 out of 3 episodes, use of graspin and pulling pagama pants 2/3 episodes) Sit to Stand (QC): 6 Chair/Xxc-lo-Slucp Xfer(QC): 5 pt provided with and attempting to follow skilled verb inst for technique transferring sit to and from supine. Uses small step at edge of bed, increased time and effort but noted improvement from yesterday session Weight Bearing Right Lower Extremity: Right Full Weight Bearing Left Lower Extremity: Left Full Weight Bearing Gait Training Does the Patient Walk?: Yes Distance: 250x 2 Walk 10 feet (QC): 6 Walk 50 ft with 2 Turns(QC): 6 Walk 150 ft (QC): 4 (pt provided with skilled inst for posture and increasing step height for gait quality, safety, fall prevention) Gait Persons Needed: 1 Gait Assistive Device: FWW Wheelchair Training Does the Pt Use a Wheelchair?: No Exercises Supine Ex: Bridging (2x10 min A stabilizing RLE, minimal lift buttocks off bed), Ankle pumps (50), Rolling (x5 L and R use of bedrails, min A with R hip flex rolling L), Heel Slides (2 x10, gravity eliminated RLE), Straight leg raise (2 x10, AAROM RLE), Hip abd/add (2x 10, RLE AAROM for ADD, AROM ABD, LLE AROM) Standing: Hamstring curls (10), 3 way Ex=Flex, Abd, Ext (10 each LE), Marching (10 with inst and encouragement to increase height randy RLE), Mini squats (10), Sit to Stand Standing Reps: 10 (in // bars, performance with BLE's, requiring rest breaks skilled inst for technique and performance) Treatments education, safety, bed mobility, transfers, gait, balance, strength, activity tolerance, functional mobility Assessment Current Status: Good Progress Noted some improvement in R hip strength, continues with effort in and out of bed with RLE but improving, slow movements with all activities PT Short Term Goals Short Term Goals Time Frame: Jun 29, 2019 PT Diesel Instructor Goals [facility] Goals PT [facility] Goals Time Frame: Jul 19, 2019 Roll Left & Right (QC): 5 Sit to Lying (QC): 5 Lying-Sitting on Side/Bed(QC): 5 Sit to Stand (QC): 5 Chair/Xyj-kd-Vkbao Xfer(QC): 5 Toilet Transfer (QC): 6 (met) Car Transfer (QC): 5 Does the Patient Walk: Yes Walk 10 feet (QC): 4 (CGA) Walk 50ft with 2 Turns (QC): 4 (CGA) Walk 150 ft (QC): 4 Walking 10ft on Uneven Surface: 4 (CGA) 1 Step (curb) (QC): 3 ([place]) 4 Steps (QC): 4 12 Steps (QC): 10 Picking up an Object (QC): 88 Does the Pt use WC or Scooter?: No Type: N/A Type: N/A PT Plan Treatment/Plan Treatment Plan: Continue Plan of Care Treatment Plan: Bed Mobility, Education, Functional Activity [place], Functional Strength, Group Therapy, Gait, Safety, Therapeutic Exercise, Transfers Treatment Duration: Jul 19, 2019 Frequency: At least 5 of 7 days/Wk (IRF) Estimated Hrs Per Day: 1.5 hours per day Patient and/or Family Agrees t: Yes Safety Risks/Education Patient Education: Gait Training, Transfer Techniques, Safety Issues Teaching Recipient: Patient Teaching Methods: Demonstration, Discussion Response to Teaching: Verbalize Understanding, Return Demonstration, Reinforcement Needed Time/GCodes Time In: 930 Time Out: 1030 Total Billed Treatment Time: 60 Total Billed Treatment 1 visit, FA x30 min, GT x15 min, EX x15 min VERA PORTILLO LOCKSMITH APPRENTICE Jul 17, 2019 09:53 POS
--- NOTE | 2019-07-17 12:41 | Occupational Ther Daily Note ---
OT Current Status-Daily Note Subjective Pt sitting in chair, agrees to treatment. Pt reports 1/10 pain in LE. ADL-Treatment Pt requesting shower this morning. Sit to stand from chair without assist. Pt retrieved clothing from closet using FWW for balance. Gait to restroom with FWW, no LOB noted. Pt transferred to toilet using grab bars. Doffed clothing while seated on toilet. Pt used AE to doff lower body clothing. Transfer to walk in shower with supervision using grab bars. Pt able to bathe all areas after set up. Don button up shirt with modified independence. Pt used instrument lens grinder apprentice to thread bilateral LE into pants. Stood with good balance during pant hike. Pt states she has already brushed teeth this morning without assist. Pt combed hair independently. Pt gathered dirty clothing and placed in closet using FWW. Transfer to chair with FWW. Pt sitting in chair with needs met and RN present after session. Therapy Code Descriptions/Definitions Functional [place] Measure: 0=Not Assessed/NA 4=Minimal Assistance 1=Total Assistance 5=Supervision or Setup 2=Maximal Assistance 6=Modified [place] 3=Moderate Assistance 7=Complete IndependenceSCALE: Activities may be completed with or without assistive devices. 7-Egventhhqg-bodwfyd completes the activity by him/herself with no assistance from a helper. 5-Set-up or Clean-up Assistance-helper sets up or cleans up; patient completes activity. [place] assists only prior to or following the activity. 4-Supervision or Touching Assistance-helper provides verbal cues and/or touching/steadying and/or contact guard assistance as patient completes activity. Assistance may be provided throughout the activity or intermittently. 3-Partial/Moderate Assistance-helper does LESS THAN HALF the effort. [place] lifts, holds or supports trunk or limbs, but provides less than half the effort. 2-Substantial/Maximal Assistance-helper does MORE THAN HALF the effort. [place] lifts or holds trunk or limbs and provides more than half the effort. 8-Ibrtdukyc-rfjkgm does ALL the effort. Patient does none of the effort to complete the activity. Or, the assistance of 2 or more helpers is required for the patient to complete the activity. If activity was not attempted, code reason: 7-Patient Refused. 9-Not Applicable-not attempted and the patient did not perform the activity before the current illness, exacerbation or injury. 10-Not Attempted due to Environmental Limitations-(lack of equipment, weather restraints, etc.). 88-Not Attempted due to Medical Conditions or Safety Concerns. Eating (QC): 6 (per pt report) Shower/Bathe Self (QC): 5 Upper Body Dressing (QC): 6 Lower Body Dressing (QC): 5 Toilet Transfer (QC): 6 OT Alf Goals [employer] Goals Time Frame: Jul 25, 2019 Eating (QC): 6 (met) Oral Hygiene (QC): 6 (met) Toileting Hygiene (QC): 4 (met) Shower/Bathe Self (QC): 5 Upper Body Dressing (QC): 6 (met) Lower Body Dressing (QC): 4 (met) On/Off Footwear (QC): 6 (met) Eating (QC): 6 Oral Hygiene (QC): 6 Shower/Bathe Self (QC): 6 Upper Body Dressing (QC): 6 Lower Body Dressing (QC): 6 On/Off Footwear (QC): 6 Toileting Hygiene (QC): 6 Toilet/Commode Transfer (QC): 6 Additional Goals: 1-Demonstrate ADL Tasks, 2-Verbalize Understanding, 3- ImproveStrength/[place] Additional Goals: 1-Demonstrate ADL Tasks, 2-Verbalize Understanding, 3- ImproveStrength/[place] 1=Demonstrate adherence to instructed precautions during ADL tasks. 2=Patient will verbalize/demonstrate understanding of assistive devices/modifications for ADL. 3=Patient will improve strength/tolerance for activity to enable patient to perform ADL's. OT Education/Plan Discharge Recommendations Plan/Recommendations: Continue POC Treatment Plan/Plan of Care Patient would benefit from OT for education, treatment and training to promote independence in ADL's, mobility, safety and/or upper extremity function for ADL's. Plan of Care: ADL Retraining, Caregiver Training, Concurrent Therapy, Functional Mobility, Group Exercise/Act as Ind, UE Funct Exercise/Act Treatment Duration: Jul 11, 2019 Frequency: At least 5 of 7 days/Wk (IRF) Estimated Hrs Per Day: 1.5 hours per day Agreement: Yes Rehab Potential: Good Time/GCodes Start Time: 08:00 Stop Time: 09:00 Total Time Billed (hr/min): 60 Billed Treatment Time 1 visit, ADLx4(60minutes) DEEPAK COLLINS OT Jul 17, 2019 12:41 POS
--- NOTE | 2019-07-17 15:02 | Therapy Group Daily Note ---
Therapy Daily Group Note Patient Education Topic Home Safety Exercises LE Seated Exercise, UE Exercise Session Ratio (pt:therapist): 6:2 Goal of Session: Home Safety Strategies, UE/LE Strengthing Goal Met for this Session: Yes Pt Benefit of Group: Contributions to Others, F/U Use of Strategies @Home, Increased Functional Safety, Increased Functional Strength, Improved Cognition, Recognition of Peers, Socialization Other/Notes Pt ambulated to [facility] for OT/PT group. Group consisted of introductions (name, place living, favorite restaurant), socialization, UE/LE seated exercises and home safety. Pt introduced self appropriately and actively listened to peers. Pt was able to remember an exercise and lead group then participated when peers lead an exercise. Pt acknowledged understanding of educational topics by verbalizing own personal story and strategies. After therapy, pt sitting in recliner with call light/phone in reach. All needs met. Start Time: 13:00 Stop Time: 14:10 Total Billed Treatment Time: 70 Total Billed Treatment 1-GRP SPENCER PALUMBO Jul 17, 2019 15:02 POS
--- NOTE | 2019-07-17 15:29 | NUR ---
Weekly Team Conference Met with patient to discuss weekly team conference. Patient is in agreement with planned discharge date of 07/19/19. Patient reports she has all recommended equipment at home, including a lift chair that her son-in-law purchased. Choice Form for Home Health Care Agencies provided to patient. Patient has chosen [facility] for home health care nursing and PT. Patient has no further questions or concerns at this time.
[2019-07-17] MEDS: ENOXAPARIN 40 MG/0.4 ML (LOVENOX) SYR SC SCH (18:36)
[2019-07-17 18:52] VITALS: BP 115/69
[2019-07-17] MEDS: MELATONIN 3 MG TABLET PO SCH (21:02)
[2019-07-17] MEDS: SIMvastatin 40 MG (ZOCOR) TAB PO SCH (21:03)
[2019-07-17] MEDS: LIDOCAINE PATCH REMOVAL TP SCH (21:03)
[2019-07-18 06:01] VITALS: BP 119/70
[2019-07-18] MEDS: LEVOTHYROXINE 50 MCG (LEVOTHROID) TAB PO SCH (06:17)
[2019-07-18] MEDS: PANTOPRAZOLE 40 MG (PROTONIX) TAB PO SCH (06:17)
[2019-07-18 07:02] LABS: HEMOGLOBIN 8.3 G/DL (11.5-16.0); RED CELL DISTRIBUTION WIDTH 17.3 % (10.0-14.5); WHITE BLOOD COUNT 8.7 10^3/uL (4.3-11.0)
[2019-07-18] MEDS: ONDANSETRON 4 MG (ZOFRAN) ORAL DISSOLVE TAB PO PRN (08:12)
[2019-07-18] MEDS: DOCUSATE SODIUM 100 MG (COLACE) CAP PO SCH (09:15)
[2019-07-18] MEDS: GABAPENTIN 300 MG (NEURONTIN) CAP PO SCH ×3 (09:15→20:24)
[2019-07-18] MEDS: lisINopril 10 MG (PRINIVIL) TABLET PO SCH (09:15)
[2019-07-18] MEDS: LIDOCAINE 4% (SALONPAS) PATCH TOP SCH (09:15)
[2019-07-18] MEDS: SENNA W/DOCUSATE (SENOKOT S) TABLET PO SCH ×2 (09:15→20:24)
[2019-07-18] MEDS: POLYETHYLENE GLYCOL 17 GM (MIRALAX) PACK PO SCH ×2 (09:15→20:24)
--- NOTE | 2019-07-18 09:52 | PM&R Progress Note ---
Subjective HPI/CC On Admission Date Seen by Provider: Jul 18, 2019 Time Seen by Provider: 08:15 Subjective/Events-last exam Had some nausea this morning. Colostomy has not had to be changed so we will monitor that closely and she is receiving MiraLax. Will need home health PT and OT. Will discharge tomorrow. 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 products supervisor of Systems General: Fatigue Objective Exam Vital Signs Vital Signs Date Time Temp Pulse Resp B/P (MAP) Pulse Ox O2 Delivery O2 Flow Rate FiO2 07/18/19 18:00 37.0 64 20 115/69 (84) 99 Room Air Capillary Refill : Less Than 3 Seconds General Appearance: No Apparent Distress, WD/WN, Chronically ill, Obese HEENT: PERRL/EOMI, Normal ENT Inspection, Pharynx Normal Neck: Full Range of Motion, Normal Inspection, Non Tender, Supple Respiratory: Chest Non Tender, Lungs Clear, Normal Breath Sounds, No Accessory Muscle Use, No Respiratory Distress Cardiovascular: Regular Rate, Rhythm, No Gallop, No JVD, No Murmur, Normal Peripheral Pulses Gastrointestinal: Normal Bowel Sounds, No Pulsatile Mass, Non Tender, Soft Back: Normal Inspection, No CVA Tenderness, No Vertebral Tenderness Extremity: Normal Capillary Refill, Normal Inspection, Normal Range of Motion, Non Tender, No Calf Tenderness, Pedal Edema Neurologic/Psychiatric: Alert, Oriented x3, No Motor/Sensory Deficits, Normal Mood/Affect, manager pest II-XII Norm as Tested Skin: Normal Color Lymphatic: No Adenopathy Results/Procedures Lab Laboratory Tests 07/18/19 06:18 Patient resulted labs reviewed. FIM Transfers Therapy Code Descriptions/Definitions Functional [place] Measure: 0=Not Assessed/NA 4=Minimal Assistance 1=Total Assistance 5=Supervision or Setup 2=Maximal Assistance 6=Modified [place] 3=Moderate Assistance 7=Complete IndependenceSCALE: Activities may be completed with or without assistive devices. 0-Fsvclqlkvt-xpjaxaa completes the activity by him/herself with no assistance from a helper. 5-Set-up or Clean-up Assistance-helper sets up or cleans up; patient completes activity. [place] assists only prior to or following the activity. 4-Supervision or Touching Assistance-helper provides verbal cues and/or touching/steadying and/or contact guard assistance as patient completes activity. Assistance may be provided throughout the activity or intermittently. 3-Partial/Moderate Assistance-helper does LESS THAN HALF the effort. [place] lifts, holds or supports trunk or limbs, but provides less than half the effort. 2-Substantial/Maximal Assistance-helper does MORE THAN HALF the effort. [place] lifts or holds trunk or limbs and provides more than half the effort. 7-Ehlqgceki-jkrhod does ALL the effort. Patient does none of the effort to complete the activity. Or, the assistance of 2 or more helpers is required for the patient to complete the activity. If activity was not attempted, code reason: 7-Patient Refused. 9-Not Applicable-not attempted and the patient did not perform the activity before the current illness, exacerbation or injury. 10-Not Attempted due to Environmental Limitations-(lack of equipment, weather restraints, etc.). 88-Not Attempted due to Medical Conditions or Safety Concerns. Transfers (B, C, W/C) (FIM): 4 Roll Left to Right (QC): 3 (Mod I rolling R, min A with RLE rolling L) Sit to Lying (QC): 5 Sit to Stand (QC): 6 Chair/Fcq-lw-Eusdd Xfer(QC): 5 Bed to/from Chair: 5 Car Transfer (QC): 88 Gait Training Does the Patient Walk?: Yes Gait (FIM): 5 Distance: 250x 2 Walk 10 feet (QC): 6 Walk 50 ft with 2 Turns(QC): 6 Walk 150 ft (QC): 4 (pt provided with skilled inst for posture and increasing step height for gait quality, safety, fall prevention) Walking 10ft/uneven surface-QC: 88 Gait Persons Needed: 1 Gait Assistive Device: FWW Wheelchair Training Does the Pt Use a Wheelchair?: No Distance: 50' Wheel 50 ft with 2 turns (QC): 3 (modA) Wheel 150 ft (QC): 9 Type of Wheelchair: Manual Stair Training Stair Training: Handrails/: 1 handrail (BUE on R handrail ascend ) #of Steps: 2 1 Step (curb) (QC): 4 (x30, unable to step up onto pink step with RLE, used blue balance pad to perform and pt able to lift RLE up and onto) 4 Steps (QC): 88 12 Steps (QC): 88 Stairs: Pattern: Step to Level of Assist: 4 Balance Picking up an Object (QC): 88 ADL-Treatment Eating (QC): 6 (per pt report) Oral Hygiene (QC): 4 (SUP during stance at sink) Shower/Bathe Self (QC): 5 Upper Body Dressing (QC): 6 Lower Body Dressing (QC): 5 On/Off Footwear (QC): 1 (TD, unable to reach top of socks) Toileting Hygiene (QC): 6 Toilet Transfer (QC): 6 Assessment/Plan Assessment and Plan Assess & Plan/Chief Complaint Assessment: Myopathy with debility Status post anasarca 40 pounds of diuresis at [place] New colostomy status Hypertension Volume overload with edema Severe anemia with iron deficiency ordered iron infusions Nausea with pain medication will start giving snack before meds given Sciatica right sided improved on lidocaine patch Plan: Checked meds and labs Inpatient rehabilitation protocol but is slower pace of 11/03 Monitor nausea Supportive care Food before pain pill IV iron infusions ordered PCP to managing the right sided sciatica pain which is help with lidocaine patch so will DC prednisone DC Monday Hopefully she can manage the colostomy at home (1) Myopathy Assessment & Plan: inpatient rehab (2) HFrEF (heart failure with reduced ejection fraction) Status: Acute Qualifiers: Heart failure chronicity: chronic Qualified Codes: I50.22 - Chronic systolic (congestive) heart failure (3) Hypothyroid Status: Chronic Assessment & Plan: continue levothyroxine (4) Acute on chronic kidney failure Status: Acute (5) Diverticulitis of intestine with perforation Status: Acute Assessment & Plan: s/p surgery 05/30/19 (6) Hypertension Qualifiers: Hypertension type: essential hypertension Qualified Codes: I10 - Essential (primary) hypertension (7) Anemia of chronic disease (8) Iron deficiency anemia Assessment & Plan: iron infusions (9) Right sided sciatica MATT NEWELL DO Jul 18, 2019 09:52 POS
--- NOTE | 2019-07-18 10:05 | Physical Therapy Daily Note ---
PT Daily Note-Current Subjective Pt agreeable to PT session. States she is excited to go home tomorrow. Admits she may not use walker all the time at home although was instructed the it is the safest for her at this time. Pain Numeric Pain Scale: 0-No Pain Appearance Pt sitting up in recliner with nurse assisting with donning knee high DALLIN hose. At end of session, pt sitting up in recliner with call light, phone and bedside table within reach. Mental Status Patient Orientation: Person, Place, Time, Eyes Open, Situation, Normal For Age Attachments: Colostomy/Ileostomy Transfers SCALE: Activities may be completed with or without assistive devices. 3-Dpicxachca-soninmv completes the activity by him/herself with no assistance from a helper. 5-Set-up or Clean-up Assistance-helper sets up or cleans up; patient completes activity. [place] assists only prior to or following the activity. 4-Supervision or Touching Assistance-helper provides verbal cues and/or touching/steadying and/or contact guard assistance as patient completes activity. Assistance may be provided throughout the activity or intermittently. 3-Partial/Moderate Assistance-helper does LESS THAN HALF the effort. [place] lifts, holds or supports trunk or limbs, but provides less than half the effort. 2-Substantial/Maximal Assistance-helper does MORE THAN HALF the effort. [place] lifts or holds trunk or limbs and provides more than half the effort. 6-Ehtfxhpxq-glpwjj does ALL the effort. Patient does none of the effort to complete the activity. Or, the assistance of 2 or more helpers is required for the patient to complete the activity. If activity was not attempted, code reason: 7-Patient Refused. 9-Not Applicable-not attempted and the patient did not perform the activity before the current illness, exacerbation or injury. 10-Not Attempted due to Environmental Limitations-(lack of equipment, weather restraints, etc.). 88-Not Attempted due to Medical Conditions or Safety Concerns. Roll Left & Right (QC): 6 (use of bedrail) Sit to Lying (QC): 5 (use of leg lift and bedrail) Lying to Sitting/Side of Bed(Q: 5 (use of leg cullet washer and bedrail) Sit to Stand (QC): 6 Chair/Nfy-ed-Owbrw Xfer(QC): 6 Car Transfer (QC): 3 (requiring min A with RLE lifting into car due to RLE hip adductor and flexor weakness) Weight Bearing Right Lower Extremity: Right Full Weight Bearing Left Lower Extremity: Left Full Weight Bearing Gait Training Does the Patient Walk?: Yes Distance: 150 x2 Walk 10 feet (QC): 6 Walk 50 ft with 2 Turns(QC): 6 Walk 150 ft (QC): 6 Walking 10ft/uneven surface-QC: 4 (supervision) Gait Persons Needed: 1 Gait Assistive Device: FWW fair pace, slight fwd flexed posture, decreased step length and height but does clear floor, no LOB or unsteadiness on even surfaces Wheelchair Training Does the Pt Use a Wheelchair?: No Stair Training Stair Training: Handrails/: 2 handrails #of Steps: 4 1 Step (curb) (QC): 3 (FWW, min A "boost" required to ascend step, CGA descending step) 4 Steps (QC): 4 (CGA to SBA, slow ) 12 Steps (QC): 9 Stairs: Pattern: Step to Balance Picking up an Object (QC): 9 Treatments education, safety, balance, strength, transfers from various surfaces, gait even and uneven surfaces, functional mobility, steps, activity tolerance, stair training Assessment Current Status: Good Progress PT Short Term Goals Short Term Goals Time Frame: Jun 29, 2019 PT Senior Portfolio Manager Goals Nursing Home Goals PT Nursing Home Goals Time Frame: Jul 19, 2019 Roll Left & Right (QC): 5 Sit to Lying (QC): 5 Lying-Sitting on Side/Bed(QC): 5 Sit to Stand (QC): 5 Chair/Oct-ib-Sbcuc Xfer(QC): 5 Toilet Transfer (QC): 6 (met) Car Transfer (QC): 5 Does the Patient Walk: Yes Walk 10 feet (QC): 4 (CGA) Walk 50ft with 2 Turns (QC): 4 (CGA) Walk 150 ft (QC): 4 Walking 10ft on Uneven Surface: 4 (CGA) 1 Step (curb) (QC): 3 ([place]) 4 Steps (QC): 4 12 Steps (QC): 10 Picking up an Object (QC): 88 Does the Pt use WC or Scooter?: No Type: N/A Type: N/A PT Plan Treatment/Plan Treatment Plan: Continue Plan of Care Treatment Plan: Bed Mobility, Education, Functional Activity [place], Functional Strength, Group Therapy, Gait, Safety, Therapeutic Exercise, Transfers Treatment Duration: Jul 19, 2019 Frequency: At least 5 of 7 days/Wk (IRF) Estimated Hrs Per Day: 1.5 hours per day Patient and/or Family Agrees t: Yes Safety Risks/Education Patient Education: Gait Training, Transfer Techniques, Steps, Safety Issues Teaching Recipient: Patient Teaching Methods: Discussion Response to Teaching: Verbalize Understanding Time/GCodes Time In: 1000 Time Out: 1100 Total Billed Treatment Time: 60 Total Billed Treatment 1 visit, FA x30 min, GT x30 min VERA PORTILLO PTA Jul 18, 2019 10:05 POS
--- NOTE | 2019-07-18 10:37 | NUR ---
Referral faxed to [facility] for home health nursing and PT.
--- NOTE | 2019-07-18 11:14 | Occupational Ther Daily Note ---
OT Current Status-Daily Note Subjective Pt seen in recliner chair start of session. States no pain, agreeable to OT tx session. Mental Status/Objective Patient Orientation: Normal For Age ADL-Treatment Therapy Code Descriptions/Definitions Functional [place] Measure: 0=Not Assessed/NA 4=Minimal Assistance 1=Total Assistance 5=Supervision or Setup 2=Maximal Assistance 6=Modified [place] 3=Moderate Assistance 7=Complete IndependenceSCALE: Activities may be completed with or without assistive devices. 8-Mvjgcukyma-yefucyq completes the activity by him/herself with no assistance from a helper. 5-Set-up or Clean-up Assistance-helper sets up or cleans up; patient completes activity. [place] assists only prior to or following the activity. 4-Supervision or Touching Assistance-helper provides verbal cues and/or touching/steadying and/or contact guard assistance as patient completes activity. Assistance may be provided throughout the activity or intermittently. 3-Partial/Moderate Assistance-helper does LESS THAN HALF the effort. [place] lifts, holds or supports trunk or limbs, but provides less than half the effort. 2-Substantial/Maximal Assistance-helper does MORE THAN HALF the effort. [place] lifts or holds trunk or limbs and provides more than half the effort. 9-Vlfgtskxj-pougfd does ALL the effort. Patient does none of the effort to complete the activity. Or, the assistance of 2 or more helpers is required for the patient to complete the activity. If activity was not attempted, code reason: 7-Patient Refused. 9-Not Applicable-not attempted and the patient did not perform the activity before the current illness, exacerbation or injury. 10-Not Attempted due to Environmental Limitations-(lack of equipment, weather restraints, etc.). 88-Not Attempted due to Medical Conditions or Safety Concerns. Eating (QC): 6 Oral Hygiene (QC): 6 (Pt completes at sink with FWW with good balance while supporting self on sink.) Toileting Hygiene (QC): 6 Toilet Transfer (QC): 6 (Completes with FWW with IND to commode.) Other Treatment Pt completes ADLs in room. Pt utilizes FWW to ambulate to therapy gym, sits in supported chair to complete UE AROM exercises with 1# weights. Pt completes UE movements of forward flexion, int/ ext rotation, shoulder abduction, and bicep flexion/ extension. Pt completes 10 reps of 1 set bilaterally. Pt stands at FWW to complete torso twists (10 reps) and bimanual manipulation/ translation tasks with hands off walker with good static standing balance. Pt and OT discuss options for knee high compression stockings as pt does not tolerate thigh high. Pt agrees, nursing notified. Pt returns to room to recliner, call light in reach, all needs met. Education OT Patient Education: Exercise program, Home exercise program, Modified ADL techniques, Progress toward Goal/Update tx plan, Purpose of tx/functional activities Teaching Recipient: Patient Teaching Methods: Demonstration, Discussion Response to Teaching: Verbalize Understanding, Return Demonstration OT Mcc Goals Mcc Goals Time Frame: Jul 25, 2019 Eating (QC): 6 (met) Oral Hygiene (QC): 6 (met) Toileting Hygiene (QC): 4 (met) Shower/Bathe Self (QC): 5 Upper Body Dressing (QC): 6 (met) Lower Body Dressing (QC): 4 (met) On/Off Footwear (QC): 6 (met) Eating (QC): 6 Oral Hygiene (QC): 6 Shower/Bathe Self (QC): 6 Upper Body Dressing (QC): 6 Lower Body Dressing (QC): 6 On/Off Footwear (QC): 6 Toileting Hygiene (QC): 6 Toilet/Commode Transfer (QC): 6 Additional Goals: 1-Demonstrate ADL Tasks, 2-Verbalize Understanding, 3- ImproveStrength/[place] Additional Goals: 1-Demonstrate ADL Tasks, 2-Verbalize Understanding, 3-ImproveStrength/[place] 1=Demonstrate adherence to instructed precautions during ADL tasks. 2=Patient will verbalize/demonstrate understanding of assistive devices/modifications for ADL. 3=Patient will improve strength/tolerance for activity to enable patient to perform ADL's. OT Education/Plan Problem List/Assessment Assessment: Decreased Activ Tolerance Discharge Recommendations Plan/Recommendations: Continue POC Treatment Plan/Plan of Care Patient would benefit from OT for education, treatment and training to promote independence in ADL's, mobility, safety and/or upper extremity function for ADL's. Plan of Care: ADL Retraining, Caregiver Training, Concurrent Therapy, Functional Mobility, Group Exercise/Act as Ind, UE Funct Exercise/Act Treatment Duration: Jul 11, 2019 Frequency: At least 5 of 7 days/Wk (IRF) Estimated Hrs Per Day: 1.5 hours per day Agreement: Yes Rehab Potential: Good Time/GCodes Start Time: 09:30 Stop Time: 10:00 Total Time Billed (hr/min): 30 Billed Treatment Time 1, ADL (15), EX (15)= 30 CHRYSTAL HOPE OTR Jul 18, 2019 11:14 POS
--- NOTE | 2019-07-18 11:40 | NUR ---
Received phone call from Kanika Massey RN with [facility]. Patient has been accepted for home health nursing and PT. A senior human resources representative from [facility] will contact the patient today.
--- NOTE | 2019-07-18 11:59 | Occupational Ther Daily Note ---
OT Current Status-Daily Note Subjective Pt seen in recliner chair post-PT session, agreeable to OT tx session with shower request. Pt states no current pain. Mental Status/Objective Patient Orientation: Normal For Age ADL-Treatment Therapy Code Descriptions/Definitions Functional [place] Measure: 0=Not Assessed/NA 4=Minimal Assistance 1=Total Assistance 5=Supervision or Setup 2=Maximal Assistance 6=Modified [place] 3=Moderate Assistance 7=Complete IndependenceSCALE: Activities may be completed with or without assistive devices. 4-Fjsfkhyior-cjccnfr completes the activity by him/herself with no assistance from a helper. 5-Set-up or Clean-up Assistance-helper sets up or cleans up; patient completes a ctivity. [place] assists only prior to or following the activity. 4-Supervision or Touching Assistance-helper provides verbal cues and/or touching/steadying and/or contact guard assistance as patient completes activity. Assistance may be provided throughout the activity or intermittently. 3-Partial/Moderate Assistance-helper does LESS THAN HALF the effort. [place] lifts, holds or supports trunk or limbs, but provides less than half the effort. 2-Substantial/Maximal Assistance-helper does MORE THAN HALF the effort. [place] lifts or holds trunk or limbs and provides more than half the effort. 2-Udninvqgt-qnwwil does ALL the effort. Patient does none of the effort to complete the activity. Or, the assistance of 2 or more helpers is required for the patient to complete the activity. If activity was not attempted, code reason: 7-Patient Refused. 9-Not Applicable-not attempted and the patient did not perform the activity before the current illness, exacerbation or injury. 10-Not Attempted due to Environmental Limitations-(lack of equipment, weather restraints, etc.). 88-Not Attempted due to Medical Conditions or Safety Concerns. Eating (QC): 6 Shower/Bathe Self (QC): 6 (Pt completes showering tasks with IND on shower bench, able to reach all areas. ) Upper Body Dressing (QC): 6 (IND seated in chair.) Lower Body Dressing (QC): 6 (IND with use of registered public surveyor for threading BLE. Stands at FWW to don over hips.) Toileting Hygiene (QC): 6 Toilet Transfer (QC): 6 On/ off footwear: 3 (dallin hose); 6 (socks) Pt trained in knee high dallin hose donning. Pt unable to thread dallin hose onto dallin hose jania without assist. Once set-up, pt threads onto foot and completes donning to ankle, able to reach ankle and pull to knees. Pt states she understands no wrinkles should be present. Pt states daughter could s/u dallin hose jania, though she would be leaving at 6 am (before pt awake). Pt requires assi st at home with donning. Other Treatment Pt completes all ADLs in room with increased safety and IND. Pt states she is ready for d/c home; pt and OT walk through separate environmental hazards and situations. Pt demonstrates cognitive safety at home and ability to problem solve if needed. Pt left in recliner chair, all needs met, call light in reach. Education OT Patient Education: Correct positioning, Modified ADL techniques, Purpose of tx/functional activities, Use of adapted equipment Teaching Recipient: Patient Teaching Methods: Demonstration, Discussion Response to Teaching: Verbalize Understanding, Return Demonstration OT Nursing Home Goals Nursing Home Goals Time Frame: Jul 25, 2019 Eating (QC): 6 (met) Oral Hygiene (QC): 6 (met) Toileting Hygiene (QC): 4 (met) Shower/Bathe Self (QC): 5 (met) Upper Body Dressing (QC): 6 (met) Lower Body Dressing (QC): 4 (met) On/Off Footwear (QC): 6 (met) Eating (QC): 6 Oral Hygiene (QC): 6 Shower/Bathe Self (QC): 6 Upper Body Dressing (QC): 6 Lower Body Dressing (QC): 6 On/Off Footwear (QC): 6 Toileting Hygiene (QC): 6 Toilet/Commode Transfer (QC): 6 Additional Goals: 1-Demonstrate ADL Tasks, 2-Verbalize Understanding, 3- ImproveStrength/[place] Additional Goals: 1-Demonstrate ADL Tasks, 2-Verbalize Understanding, 3- ImproveStrength/[place] 1=Demonstrate adherence to instructed precautions during ADL tasks. 2=Patient will verbalize/demonstrate understanding of assistive devices/modifications for ADL. 3=Patient will improve strength/tolerance for activity to enable patient to perform ADL's. OT Education/Plan Problem List/Assessment Assessment: Decreased Activ Tolerance, Decreased UE Strength, Impaired I ADL's Discharge Recommendations Plan/Recommendations: Continue POC Equpiment Recommendations-D/C: DALLIN [place] Treatment Plan/Plan of Care Treatment,Training & Education: Yes Patient would benefit from OT for education, treatment and training to promote independence in ADL's, mobility, safety and/or upper extremity function for ADL's. Plan of Care: ADL Retraining, Caregiver Training, Concurrent Therapy, Functional Mobility, Group Exercise/Act as Ind, UE Funct Exercise/Act Treatment Duration: Jul 11, 2019 Frequency: At least 5 of 7 days/Wk (IRF) Estimated Hrs Per Day: 1.5 hours per day Agreement: Yes Rehab Potential: Good Time/GCodes Start Time: 11:00 Stop Time: 12:00 Total Time Billed (hr/min): 60 Billed Treatment Time 1, ADL 4 (60) CHRYSTAL HOPE OTR Jul 18, 2019 11:59 POS
--- NOTE | 2019-07-18 12:59 | NUR ---
provided prayer and Communion.
--- NOTE | 2019-07-18 13:08 | NUR ---
IMM reviewed and discussed with patient. Patient states she has no intention on appealing discharge. Patient signed IMM. Notified patient that a pharmaceutical specialty representative from [facility] would be talking with patient today. Patient verbalized understanding. Discharge set for 07/19/19 at 1100.
--- NOTE | 2019-07-18 15:16 | Physical Therapy Daily Note ---
PT Daily Note-Current Subjective Pt agreeable to PT session. States she is packing up and getting ready to go home for tomorrow Pain Numeric Pain Scale: 0-No Pain Appearance Pt sitting up in recliner with grand daughter present upon arrival. At end of session, pt sitting up in recliner with call light, phone and bedside table within reach Mental Status Patient Orientation: Person, Place, Time, Eyes Open, Situation Attachments: Colostomy/Ileostomy Transfers SCALE: Activities may be completed with or without assistive devices. 9-Lvfmfisdiy-corinqw completes the activity by him/herself with no assistance from a helper. 5-Set-up or Clean-up Assistance-helper sets up or cleans up; patient completes activity. Lowell assists only prior to or following the activity. 4-Supervision or Touching Assistance-helper provides verbal cues and/or touching/steadying and/or contact guard assistance as patient completes activity. Assistance may be provided throughout the activity or intermittently. 3-Partial/Moderate Assistance-helper does LESS THAN HALF the effort. Lowell lifts, holds or supports trunk or limbs, but provides less than half the effort. 2-Substantial/Maximal Assistance-helper does MORE THAN HALF the effort. Lowell lifts or holds trunk or limbs and provides more than half the effort. 5-Bwxqgnhpa-lpaxtv does ALL the effort. Patient does none of the effort to complete the activity. Or, the assistance of 2 or more helpers is required for the patient to complete the activity. If activity was not attempted, code reason: 7-Patient Refused. 9-Not Applicable-not attempted and the patient did not perform the activity before the current illness, exacerbation or injury. 10-Not Attempted due to Environmental Limitations-(lack of equipment, weather restraints, etc.). 88-Not Attempted due to Medical Conditions or Safety Concerns. Sit to Stand (QC): 6 Chair/Saz-bh-Pckbx Xfer(QC): 6 Weight Bearing Right Lower Extremity: Right Full Weight Bearing Left Lower Extremity: Left Full Weight Bearing Gait Training Does the Patient Walk?: Yes Distance: 120 x2, 40 Walk 10 feet (QC): 6 Walk 50 ft with 2 Turns(QC): 6 Gait Assistive Device: FWW 40 ft in room without AD, pt furniture surfing at times, no LOB, pt insisting she will not be using walker all the time at home. Neuromuscular In bedroom, pt walking around room without AD reaching, looking into high and low drawers, turning in circles, reaching high shelves, no LOB. standing in // bars standing on Airex, unilat UE support and occasional no UE support, march, squat, wt shift toes/heels and side to side Treatments education, safety, transfers, gait, balance, strength, functional mobility, activity tolerance Assessment Current Status: Good Progress PT Short Term Goals Short Term Goals Time Frame: Jun 29, 2019 PT Airport Driver Goals Halfway Goals PT Halfway Goals Time Frame: Jul 19, 2019 Roll Left & Right (QC): 5 Sit to Lying (QC): 5 Lying-Sitting on Side/Bed(QC): 5 Sit to Stand (QC): 5 Chair/Cpl-yq-Hqsfy Xfer(QC): 5 Toilet Transfer (QC): 6 (met) Car Transfer (QC): 5 Does the Patient Walk: Yes Walk 10 feet (QC): 4 (CGA) Walk 50ft with 2 Turns (QC): 4 (CGA) Walk 150 ft (QC): 4 Walking 10ft on Uneven Surface: 4 (CGA) 1 Step (curb) (QC): 3 (Mildred) 4 Steps (QC): 4 12 Steps (QC): 10 Picking up an Object (QC): 88 Does the Pt use WC or Scooter?: No Type: N/A Type: N/A PT Plan Treatment/Plan Treatment Plan: Continue Plan of Care Treatment Plan: Bed Mobility, Education, Functional Activity Chuyita, Functional Strength, Group Therapy, Gait, Safety, Therapeutic Exercise, Transfers Treatment Duration: Jul 19, 2019 Frequency: At least 5 of 7 days/Wk (IRF) Estimated Hrs Per Day: 1.5 hours per day Patient and/or Family Agrees t: Yes Safety Risks/Education Patient Education: Gait Training, Transfer Techniques, Safety Issues Teaching Recipient: Patient Teaching Methods: Demonstration, Discussion Response to Teaching: Verbalize Understanding, Return Demonstration Time/GCodes Time In: 1400 Time Out: 1430 Total Billed Treatment Time: 30 Total Billed Treatment 1 visit, GT x10 min, NM x20 min VERA PORTILLO MUD BOSS Jul 18, 2019 15:16 POS
[2019-07-18] MEDS: HYDROcodone/APAP 5 MG/325 MG (LORTAB) TAB PO PRN ×2 (16:00→20:30)
[2019-07-18 16:37] VITALS: BP 118/69
[2019-07-18] MEDS: ENOXAPARIN 40 MG/0.4 ML (LOVENOX) SYR SC SCH (16:56)
[2019-07-18 18:00] VITALS: BP 115/69
--- NOTE | 2019-07-18 19:17 | NUR ---
bedside report received from LEOBARDO LOVE, assume care of pt
[2019-07-18] MEDS: SIMvastatin 40 MG (ZOCOR) TAB PO SCH (20:24)
[2019-07-18] MEDS: MELATONIN 3 MG TABLET PO SCH (20:24)
--- NOTE | 2019-07-18 20:30 | NUR ---
dressing change to abd pinhole with iodoform gauze & 4x4 gauze, c/o rt leg pain level 4/10 on numeric scale, Lortab 5 1 tab given
[2019-07-18] MEDS: LIDOCAINE PATCH REMOVAL TP SCH (20:38)
--- NOTE | 2019-07-18 21:15 | NUR ---
rates pain 2/10 on numeric scale
[2019-07-18] MEDS ORDERED: POLY17PO31 PO (22:09)
[2019-07-18] MEDS ORDERED: BUME1TAB8 PO (22:09)
[2019-07-18] MEDS ORDERED: LIDO700A45 TP (22:09)
[2019-07-18] MEDS ORDERED: GABA-488 PO (22:09)
[2019-07-18] MEDS ORDERED: PANT40TA3 PO (22:09)
[2019-07-18] MEDS ORDERED: HYDR-3812 PO (22:09)
--- NOTE | 2019-07-18 22:11 | D/C HH Face to Face Order ---
D/C Face to Face Orders Reconcile Patient Problems Problems Reviewed?: Yes Instructions for Patient Via [facility], Patient Instructions/FollowUp: Dr Cody Gómez in 1 week Physician to follow Patient: Dr Cody Gómez Discharge Diet for Home: No Restrictions Patient Problems: s/p colostomy s/p anasarca Goals for Patient: Return to independence Patient Data-Allergies,Ht & Wt Patient Allergies: Coded Allergies: Sulfa (Sulfonamide Antibiotics) (Unverified Allergy, Unknown, 05/31/19) Height (Feet): 5 Height (Inches): 2.00 Weight (Pounds): 200 Weight (Ounces): 0.0 Home Health Need/Face to Face Date of Face to Face: Jul 18, 2019 Clinical Findings: Generalized weakness and fatigue, Muscle weakness, Pain with ambulation, Unsteady gait, Non-healing wound I have seen Pt bker-gu-zqxt: Yes Discharged To: Home Diagnosis/Conditions: s/p colostomy s/p anasarca Patient is Homebound due to: Yaritza fall risk due to instabilty, Muscle weakness Homebound Status Due to the above stated illness, injury or surgical procedure (medical condition or diagnosis) and associated clinical findings, the patient is homebound because of his/her inability to leave home except with aid of a supportive device and/or person AND leaving the home requires a considerable and taxing effort or is medically contraindicated. Pt req the following assistanc: Walker Home Health Nursing Orders Home Health Services Order: Nursing Services (dressing changes per Dr Santos), Planishing Press Operator-Evaluate & Treat, Physical Therapy-Evaluate & Treat Certify Stmt I certify that this patient is under my care and that I, a nurse practitioner or a physician; a administrative support assistant working with me, had a face to face encounter that - meets the physician face to face encounter requirements with this patient as dated. MATT NEWELL DO Jul 18, 2019 22:11 POS
[2019-07-19 05:55] VITALS: BP 130/62
[2019-07-19] MEDS: LEVOTHYROXINE 50 MCG (LEVOTHROID) TAB PO SCH (06:48)
[2019-07-19] MEDS: PANTOPRAZOLE 40 MG (PROTONIX) TAB PO SCH (06:48)
--- NOTE | 2019-07-19 07:13 | NUR ---
bedside report given to MARQUITA LOVE
[2019-07-19] MEDS: DOCUSATE SODIUM 100 MG (COLACE) CAP PO SCH (08:27)
[2019-07-19] MEDS: lisINopril 10 MG (PRINIVIL) TABLET PO SCH (08:27)
[2019-07-19] MEDS: POLYETHYLENE GLYCOL 17 GM (MIRALAX) PACK PO SCH (08:27)
[2019-07-19] MEDS: LIDOCAINE 4% (SALONPAS) PATCH TOP SCH (08:27)
[2019-07-19] MEDS: GABAPENTIN 300 MG (NEURONTIN) CAP PO SCH (08:27)
[2019-07-19] MEDS: SENNA W/DOCUSATE (SENOKOT S) TABLET PO SCH (08:28)
--- NOTE | 2019-07-19 09:15 | Therapy Team Discharge Summary ---
Therapy Discharge Summary Discharge Recommendations Date of Discharge Physical Therapy Patient came to rehab with a SBO. Upon evaluation patient was max assist to dependent for bed mobility and transfers, ambulated 20' with a rolling walker with min assist, and propelled a manual wheelchair 50' with mod assist. Patient has been performing bed mobility and transfer training, balance and endurance training, functional strengthening, stair training, gait training, and education. Patient has made fair progress and has met all of her supervisor intermediates goals except for stairs and car transfer. Now, patient performs bed mobility and transfers with independence for setup, car transfer min assist, ambulates 150' with a rolling walker with independence (including 50' with at least 2 turns of 90 degrees and 10' over an uneven surface with supervision), and can go up and down 4 steps using 2 handrails with CGA. Patient is being discharged from this facility today and will be discharged from PT at this time. Occupational Therapy Decreased Activ Tolerance, Decreased UE Strength, Impaired I ADL's PT Prison Goals Agent Broker Goals PT Agent Broker Goals Time Frame: Jul 19, 2019 Roll Left to Right (QC): 5 Sit to Lying (QC): 5 Lying-Sitting on Side/Bed(QC): 5 Sit to Stand (QC): 5 Chair/Lmp-kl-Mwbec Xfer(QC): 5 Car Transfer (QC): 5 Does the Patient Walk: Yes Distance: 150' Walk 10 feet (QC): 4 (CGA) Walk 10ft-Uneven Surface(QC): 4 (CGA) Walk 50ft with 2 Turns (QC): 4 (CGA) Walk 150 ft (QC): 4 Gait Assistive Device: FWW Does the Pt use WC or Scooter?: No 1 Step (curb) (QC): 3 (Mildred) 4 Steps (QC): 4 12 Steps (QC): 10 Picking up an Object (QC): 88 OT Agent Broker Goals Prison Goals Time Frame: Jul 25, 2019 Eating (QC): 6 (met) Oral Hygiene (QC): 6 (met) Shower/Bathe Self (QC): 5 (met) Upper Body Dressing (QC): 6 (met) Lower Body Dressing (QC): 4 (met) On/Off Footwear (QC): 6 (met) Toileting Hygiene (QC): 4 (met) Toilet/Commode Transfer (QC): 6 (met) Eating (QC): 6 Oral Hygiene (QC): 6 Shower/Bathe Self (QC): 6 Upper Body Dressing (QC): 6 Lower Body Dressing (QC): 6 On/Off Footwear (QC): 6 Toileting Hygiene (QC): 6 Toilet/Commode Transfer (QC): 6 Additional Goals: 1-Demonstrate ADL Tasks, 2-Verbalize Understanding, 3-ImproveStrength/Chuyita Additional Goals: 1-Demonstrate ADL Tasks, 2-Verbalize Understanding, 3- ImproveStrength/Chuyita 1=Demonstrate adherence to instructed precautions during ADL tasks. 2=Patient will verbalize/demonstrate understanding of assistive devices /modifications for ADL. 3=Patient will improve strength/tolerance for activity to enable patient to perform ADL's. NORIS CARUSO PT Jul 19, 2019 09:15 POS
--- NOTE | 2019-07-19 09:50 | Progress Note ---
Subjective Subjective Date Seen by Provider: Jul 19, 2019 Time Seen by Provider: 09:44 Patient is doing alright; She has improved significantly since her hip replacement. She is a little anxious about going home. She has a lift chair, table top for her walker and other amenities. Review of Systems General: Fatigue Pulmonary: No Dyspnea, No Cough Cardiovascular: No: Chest Pain, Palpitations Gastrointestinal: No: Constipation Musculoskeletal: back pain, leg pain Neurological: Weakness Objective Exam Vital Signs Vital Signs Date Time Temp Pulse Resp B/P (MAP) Pulse Ox O2 Delivery O2 Flow Rate FiO2 07/19/19 05:55 36.6 64 16 130/62 (84) 97 Room Air 07/18/19 21:00 Room Air 07/18/19 18:00 37.0 64 20 115/69 (84) 99 Room Air 07/18/19 16:37 36.9 61 16 118/69 (85) 100 Room Air I & O 07/19/19 07:00 Intake Total 700 ml Balance 700 ml General Appearance: No Apparent Distress, WD/WN, Chronically ill, Obese HEENT: PERRL/EOMI, Normal ENT Inspection, Pharynx Normal Neck: Full Range of Motion, Normal Inspection, Non Tender, Supple Respiratory: Chest Non Tender, Lungs Clear, Normal Breath Sounds, No Accessory Muscle Use, No Respiratory Distress Cardiovascular: Regular Rate, Rhythm, No Gallop, No JVD, No Murmur, Normal Peripheral Pulses Gastrointestinal: Normal Bowel Sounds, No Pulsatile Mass, Non Tender, Soft Back: Normal Inspection, No CVA Tenderness, No Vertebral Tenderness Extremity: Normal Capillary Refill, Normal Inspection, Normal Range of Motion, Non Tender, No Calf Tenderness, Pedal Edema Neurologic/Psychiatric: Alert, Oriented x3, No Motor/Sensory Deficits, Normal Mood/Affect, product specialist II-XII Norm as Tested Skin: Normal Color Lymphatic: No Adenopathy Assessment/Plan Assessment/Plan Assessment and Plan 07/03/19 -acute on chronic kidney disease- holding lisinopril for 2 days- stopped furosemide. Starting bumex 1mg 05/04/19- (may change it to every other day). -Right sciatica- we will do prednisone 50mg x1, 40mg, 30, 20, 10, 5mg taper as a similar schedule gave her good relief for about a month. 07/05/19- creatinine noted to be even more elevated from her baseline- diuresis stopped, nephrotoxic agents held. K held. IVF LR started with resulting improvement in her Cr. Will continue to work on improving kidney function. Lovenox renally dosed. Blood pressure noted to be low contributing to her kidney issues. Holding DAVID I. -follow with labs on Monday07/08/19 07/09/19- Kidney function/Cr at baseline- will add bumex 1mg daily prn for weight gain >3 pounds in 1 day or 3 pounds in 5 days. K restarted. Monitor lytes. monitor blood pressure. May resume lisinopril. sciatica pain was controlled with prednisone but the taper has ended; will try lidocaine patches daily and find the right spot- starting over [id number] area of right buttocks. She is still requiring inpatient rehab and wound care/colostomy care. 07/19/19- acute on chronic kidney disease significantly improved; discharge to home- will follow up on her in 2 weeks at [facility]- will take over her pain management- lidocaine patches have helped. Dispo: discharge to home with HH- PT and Nursing. Problems: (1) Myopathy Assessment & Plan: inpatient rehab (2) HFrEF (heart failure with reduced ejection fraction) Qualifiers: Qualified Codes: I50.22 - Chronic systolic (congestive) heart failure (3) Hypothyroid Assessment & Plan: continue levothyroxine (4) Acute on chronic kidney failure (5) Diverticulitis of intestine with perforation Assessment & Plan: s/p surgery 05/30/19 (6) Hypertension Qualifiers: Qualified Codes: I10 - Essential (primary) hypertension (7) Anemia of chronic disease (8) Iron deficiency anemia Assessment & Plan: iron infusions (9) Right sided sciatica Clinical Quality Measures DVT/VTE Risk/Contraindication: Risk Factor Score Per Nursin RFS Level Per Nursing on Admit: 4+=Very High MADYSON HERMAN MD Jul 19, 2019 09:50 POS
--- NOTE | 2019-07-19 10:19 | Discharge Summary ---
Diagnosis/Chief Complaint Date of Admission Jun 27, 2019 at 12:45 Date of Discharge Discharge Date: Jul 18, 2019 Discharge Diagnosis Assessment: Myopathy with debility Status post anasarca 40 pounds of diuresis at [place] New colostomy status Hypertension Volume overload with edema Severe anemia with iron deficiency ordered iron infusions Nausea with pain medication will start giving snack before meds given Sciatica right sided improved on lidocaine patch Plan: Checked meds and labs Inpatient rehabilitation protocol but is slower pace of 15/7 Monitor nausea Supportive care Food before pain pill IV iron infusions ordered PCP to managing the right sided sciatica pain which is help with lidocaine patch so will DC prednisone DC Monday Hopefully she can manage the colostomy at home (1) Myopathy Assessment & Plan: inpatient rehab (2) HFrEF (heart failure with reduced ejection fraction) Status: Acute Qualifiers: Heart failure chronicity: chronic Qualified Codes: I50.22 - Chronic systolic (congestive) heart failure (3) Hypothyroid Status: Chronic Assessment & Plan: continue levothyroxine (4) Acute on chronic kidney failure Status: Acute (5) Diverticulitis of intestine with perforation Status: Acute Assessment & Plan: s/p surgery 05/30/19 (6) Hypertension Qualifiers: Hypertension type: essential hypertension Qualified Codes: I10 - Essential (primary) hypertension (7) Anemia of chronic disease (8) Iron deficiency anemia Assessment & Plan: iron infusions (9) Right sided sciatica Discharge Summary Discharge Physical Examination Allergies: Coded Allergies: Sulfa (Sulfonamide Antibiotics) (Unverified Allergy, Unknown, 05/31/19) Vitals & I&Os Vital Signs Date Time Temp Pulse Resp B/P (MAP) Pulse Ox O2 Delivery O2 Flow Rate FiO2 07/19/19 11:00 36.6 64 16 130/62 97 Room Air General Appearance: Alert, Oriented X3, Cooperative HEENT: Atraumatic, PERRLA Respiratory: Clear to Auscultation Cardiovascular: Regular Rate Abdominal: Normal Bowel Sounds Neuro: Normal Gait, Normal Speech, Strength at 5/5 X4 Ext Psych/Mental Status: Mental Status NL, Mood NL Hospital Course Was the Problem List Reviewed?: Yes Hospital Course: Pt had a lengthy hospital course for 23 days in inpatient rehab after she was admitted from [place] for Anasarca removed 40 lbs of fluid with diuresis and was monitored closely for colostomy function and wound care mandated by Dr. Santos. Pt overall was able to participate in therapy, had right sided sciatica pain that required PCP Dr. Cody Gómez to apply Lidocaine Patch and pain medication but overall she worked through that and was able to participate fully in all therapies and colostomy care education was provided and pt was reluctant but family was going to help her with that process along with home health and pt was deemed stable for DC. Labs (last 24 hrs) Laboratory Tests 06/28/19 05:10: White Blood Count 10.9, Red Blood Count 2.54L, Hemoglobin 7.3L, Hematocrit 24L, Mean Corpuscular Volume 95, Mean Corpuscular Hemoglobin 29, Mean Corpuscular Hemoglobin Concent 30L, Red Cell Distribution Width 14.9H, Platelet Count 322, Mean Platelet Volume 10.4, Sodium Level 142, Potassium Level 4.5, Chloride Level 106, Carbon Dioxide Level 23, Anion Gap 13, Blood Urea Nitrogen 39H, Creatinine 1.46H, Estimat Glomerular Filtration Rate 34, BUN/Creatinine Ratio 27, Glucose Level 96, Calcium Level 8.9, Corrected Calcium 9.6, Iron Level 24L, Total Bilirubin 0.4, Aspartate Amino Transf (AST/SGOT) 25, Alanine Aminotransferase (ALT/SGPT) 21, Alkaline Phosphatase 147H, Total Protein 5.6L, Albumin 3.1L, Prealbumin 13.5L 07/01/19 05:38: White Blood Count 11.3H, Red Blood Count 2.60L, Hemoglobin 7.6L, Hematocrit 24L, Mean Corpuscular Volume 94, Mean Corpuscular Hemoglobin 29, Mean Corpuscular Hemoglobin Concent 31L, Red Cell Distribution Width 15.0H, Platelet Count 336, Mean Platelet Volume 10.8H, Sodium Level 141, Potassium Level 4.1, Chloride Level 106, Carbon Dioxide Level 24, Anion Gap 11, Blood Urea Nitrogen 41H, Creatinine 1.60H, Estimat Glomerular Filtration Rate 31, BUN/Creatinine Ratio 26, Glucose Level 97, Calcium Level 9.5, Corrected Calcium 10.1, Total Bilirubin 0.3, Aspartate Amino Transf (AST/SGOT) 13, Alanine Aminotransferase (ALT/SGPT) 15, Alkaline Phosphatase 118, Total Protein 5.7L, Albumin 3.2, Neutrophils (%) (Auto) 55, Lymphocytes (%) (Auto) 33, Monocytes (%) (Auto) 10, Eosinophils (%) (Auto) 2, Basophils (%) (Auto) 1, Neutrophils # (Auto) 6.2, Lymphocytes # (Auto) 3.7, Monocytes # (Auto) 1.1H, Eosinophils # (Auto) 0.3, Basophils # (Auto) 0.1 07/04/19 10:47: Sodium Level 138, Potassium Level 4.6, Chloride Level 103, Carbon Dioxide Level 23, Anion Gap 12, Blood Urea Nitrogen 54H, Creatinine 2.30H, Estimat Glomerular Filtration Rate 20, BUN/Creatinine Ratio 23, Glucose Level 103, Calcium Level 9.7, Albumin 3.7, Phosphorus Level 3.5 07/05/19 06:08: Sodium Level 139, Potassium Level 5.1H, Chloride Level 104, Carbon Dioxide Level 21, Anion Gap 14, Blood Urea Nitrogen 59H, Creatinine 1.99H, Estimat Glomerular Filtration Rate 24, BUN/Creatinine Ratio 30, Glucose Level 106H, Calcium Level 9.4, Albumin 3.6, Phosphorus Level 4.5 07/08/19 04:55: White Blood Count 12.0H, Red Blood Count 2.71L, Hemoglobin 7.9L, Hematocrit 26L, Mean Corpuscular Volume 95, Mean Corpuscular Hemoglobin 29, Mean Corpuscular Hemoglobin Concent 31L, Red Cell Distribution Width 16.6H, Platelet Count 308, Mean Platelet Volume 10.6H, Neutrophils (%) (Auto) 57, Lymphocytes (%) (Auto) 31, Monocytes (%) (Auto) 10, Eosinophils (%) (Auto) 1, Basophils (%) (Auto) 1, Neutrophils # (Auto) 6.8, Lymphocytes # (Auto) 3.7, Monocytes # (Auto) 1.2H, Eosinophils # (Auto) 0.1, Basophils # (Auto) 0.1, Sodium Level 141, Potassium Level 4.4, Chloride Level 108H, Carbon Dioxide Level 22, Anion Gap 11, Blood Urea Nitrogen 47H, Creatinine 1.47H, Estimat Glomerular Filtration Rate 34, BUN/Creatinine Ratio 32, Glucose Level 95, Calcium Level 9.2, Corrected Calcium 9.7, Total Bilirubin 0.2, Aspartate Amino Transf (AST/SGOT) 14, Alanine Aminotransferase (ALT/SGPT) 19, Alkaline Phosphatase 118, Total Protein 5.9L, Albumin 3.4 07/11/19 05:55: White Blood Count 10.3, Red Blood Count 2.83L, Hemoglobin 8.4L, Hematocrit 27L, Mean Corpuscular Volume 96, Mean Corpuscular Hemoglobin 30, Mean Corpuscular Hemoglobin Concent 31L, Red Cell Distribution Width 17.5H, Platelet Count 268, Mean Platelet Volume 11.3H, Creatinine 1.40H 07/15/19 04:45: White Blood Count 9.4, Red Blood Count 2.88L, Hemoglobin 8.4L, Hematocrit 28L, Mean Corpuscular Volume 97, Mean Corpuscular Hemoglobin 29, Mean Corpuscular Hemoglobin Concent 30L, Red Cell Distribution Width 17.8H, Platelet Count 237, Mean Platelet Volume 11.3H, Neutrophils (%) (Auto) 48, Lymphocytes (%) (Auto) 36, Monocytes (%) (Auto) 11, Eosinophils (%) (Auto) 4, Basophils (%) (Auto) 1, Neutrophils # (Auto) 4.5, Lymphocytes # (Auto) 3.4, Monocytes # (Auto) 1.0, Eosinophils # (Auto) 0.4H, Basophils # (Auto) 0.1, Sodium Level 141, Potassium Level 4.4, Chloride Level 109H, Carbon Dioxide Level 21, Anion Gap 11, Blood Urea Nitrogen 32H, Creatinine 1.38H, Estimat Glomerular Filtration Rate 37, BUN/Creatinine Ratio 23, Glucose Level 99, Calcium Level 9.5, Corrected Calcium 10.0, Total Bilirubin 0.2, Aspartate Amino Transf (AST/SGOT) 11, Alanine Aminotransferase (ALT/SGPT) 11, Alkaline Phosphatase 117, Total Protein 5.8L, Albumin 3.4 07/18/19 06:18: White Blood Count 8.7, Red Blood Count 2.78L, Hemoglobin 8.3L, Hematocrit 27L, Mean Corpuscular Volume 96, Mean Corpuscular Hemoglobin 30, Mean Corpuscular Hemoglobin Concent 31L, Red Cell Distribution Width 17.3H, Platelet Count 206, Mean Platelet Volume 12.0H, Creatinine 1.66H Pending Labs Laboratory Tests 06/28/19 05:10: White Blood Count 10.9, Red Blood Count 2.54, Hemoglobin 7.3, Hematocrit 24, Mean Corpuscular Volume 95, Mean Corpuscular Hemoglobin 29, Mean Corpuscular Hemoglobin Concent 30, Red Cell Distribution Width 14.9, Platelet Count 322, Mean Platelet Volume 10.4, Sodium Level 142, Potassium Level 4.5, Chloride Level 106, Carbon Dioxide Level 23, Anion Gap 13, Blood Urea Nitrogen 39, Creatinine 1.46, Estimat Glomerular Filtration Rate 34, BUN/Creatinine Ratio 27, Glucose Level 96, Calcium Level 8.9, Corrected Calcium 9.6, Iron Level 24, Total Bilirubin 0.4, Aspartate Amino Transf (AST/SGOT) 25, Alanine Aminotransferase (ALT/SGPT) 21, Alkaline Phosphatase 147, Total Protein 5.6, Albumin 3.1, Prealbumin 13.5 07/01/19 05:38: White Blood Count 11.3, Red Blood Count 2.60, Hemoglobin 7.6, Hematocrit 24, Mean Corpuscular Volume 94, Mean Corpuscular Hemoglobin 29, Mean Corpuscular Hemoglobin Concent 31, Red Cell Distribution Width 15.0, Platelet Count 336, Mean Platelet Volume 10.8, Sodium Level 141, Potassium Level 4.1, Chloride Level 106, Carbon Dioxide Level 24, Anion Gap 11, Blood Urea Nitrogen 41, Creatinine 1.60, Estimat Glomerular Filtration Rate 31, BUN/Creatinine Ratio 26, Glucose Level 97, Calcium Level 9.5, Corrected Calcium 10.1, Total Bilirubin 0.3, Aspartate Amino Transf (AST/SGOT) 13, Alanine Aminotransferase (ALT/SGPT) 15, Alkaline Phosphatase 118, Total Protein 5.7, Albumin 3.2, Neutrophils (%) (Auto) 55, Lymphocytes (%) (Auto) 33, Monocytes (%) (Auto) 10, Eosinophils (%) (Auto) 2, Basophils (%) (Auto) 1, Neutrophils # (Auto) 6.2, Lymphocytes # (Auto) 3.7, Monocytes # (Auto) 1.1, Eosinophils # (Auto) 0.3, Basophils # (Auto) 0.1 07/04/19 10:47: Sodium Level 138, Potassium Level 4.6, Chloride Level 103, Carbon Dioxide Level 23, Anion Gap 12, Blood Urea Nitrogen 54, Creatinine 2.30, Estimat Glomerular Filtration Rate 20, BUN/Creatinine Ratio 23, Glucose Level 103, Calcium Level 9.7, Albumin 3.7, Phosphorus Level 3.5 07/05/19 06:08: Sodium Level 139, Potassium Level 5.1, Chloride Level 104, Carbon Dioxide Level 21, Anion Gap 14, Blood Urea Nitrogen 59, Creatinine 1.99, Estimat Glomerular Filtration Rate 24, BUN/Creatinine Ratio 30, Glucose Level 106, Calcium Level 9.4, Albumin 3.6, Phosphorus Level 4.5 07/08/19 04:55: White Blood Count 12.0, Red Blood Count 2.71, Hemoglobin 7.9, Hematocrit 26, Mean Corpuscular Volume 95, Mean Corpuscular Hemoglobin 29, Mean Corpuscular Hemoglobin Concent 31, Red Cell Distribution Width 16.6, Platelet Count 308, Mean Platelet Volume 10.6, Neutrophils (%) (Auto) 57, Lymphocytes (%) (Auto) 31, Monocytes (%) (Auto) 10, Eosinophils (%) (Auto) 1, Basophils (%) (Auto) 1, Neutrophils # (Auto) 6.8, Lymphocytes # (Auto) 3.7, Monocytes # (Auto) 1.2, Eosinophils # (Auto) 0.1, Basophils # (Auto) 0.1, Sodium Level 141, Potassium Level 4.4, Chloride Level 108, Carbon Dioxide Level 22, Anion Gap 11, Blood Urea Nitrogen 47, Creatinine 1.47, Estimat Glomerular Filtration Rate 34, BUN /Creatinine Ratio 32, Glucose Level 95, Calcium Level 9.2, Corrected Calcium 9.7, Total Bilirubin 0.2, Aspartate Amino Transf (AST/SGOT) 14, Alanine Aminotransferase (ALT/SGPT) 19, Alkaline Phosphatase 118, Total Protein 5.9, Albumin 3.4 07/11/19 05:55: White Blood Count 10.3, Red Blood Count 2.83, Hemoglobin 8.4, Hematocrit 27, Mean Corpuscular Volume 96, Mean Corpuscular Hemoglobin 30, Mean Corpuscular Hemoglobin Concent 31, Red Cell Distribution Width 17.5, Platelet Count 268, Mean Platelet Volume 11.3, Creatinine 1.40 07/15/19 04:45: White Blood Count 9.4, Red Blood Count 2.88, Hemoglobin 8.4, Hematocrit 28, Mean Corpuscular Volume 97, Mean Corpuscular Hemoglobin 29, Mean Corpuscular Hemoglobin Concent 30, Red Cell Distribution Width 17.8, Platelet Count 237, Mean Platelet Volume 11.3, Neutrophils (%) (Auto) 48, Lymphocytes (%) (Auto) 36, Monocytes (%) (Auto) 11, Eosinophils (%) (Auto) 4, Basophils (%) (Auto) 1, Neutrophils # (Auto) 4.5, Lymphocytes # (Auto) 3.4, Monocytes # (Auto) 1.0, Eosinophils # (Auto) 0.4, Basophils # (Auto) 0.1, Sodium Level 141, Potassium Level 4.4, Chloride Level 109, Carbon Dioxide Level 21, Anion Gap 11, Blood Urea Nitrogen 32, Creatinine 1.38, Estimat Glomerular Filtration Rate 37, BU N/Creatinine Ratio 23, Glucose Level 99, Calcium Level 9.5, Corrected Calcium 10.0, Total Bilirubin 0.2, Aspartate Amino Transf (AST/SGOT) 11, Alanine Aminotransferase (ALT/SGPT) 11, Alkaline Phosphatase 117, Total Protein 5.8, Albumin 3.4 07/18/19 06:18: White Blood Count 8.7, Red Blood Count 2.78, Hemoglobin 8.3, Hematocrit 27, Mean Corpuscular Volume 96, Mean Corpuscular Hemoglobin 30, Mean Corpuscular Hemoglobin Concent 31, Red Cell Distribution Width 17.3, Platelet Count 206, Mean Platelet Volume 12.0, Creatinine 1.66 Discharge Home Medications: Active Scripts Active Lidocaine 5% Patch (Lidocaine) 1 Each Adh..patch 1 Each TP Q12H PRN MDD 2 2 patches max for 12 hours, then 12 hours patch-free period. Pantoprazole Sodium 40 Mg Tablet.dr 40 Mg PO DAILY@0700 Polyethylene Glycol 3350 17 Gm Powd.pack 17 Gm PO BID Bumetanide 1 Mg Tablet 1 Mg PO NEEDED PRN Gabapentin 300 Mg Capsule 300 Mg PO TID Hydrocodone-Acetamin 5-325 mg (Hydrocodone/Acetaminophen) 1 Each Tablet 1 Tab PO Q4H PRN Reported Aspirin EC (Aspirin) 81 Mg Tablet.dr 81 Mg PO BID Amitriptyline HCl 10 Mg Tablet 10 Mg PO HS Zofran (Ondansetron HCl) 4 Mg Tab 4 Mg PO TID PRN Colace (Docusate Sodium) 100 Mg Capsule 100 Mg PO DAILY PRN Simvastatin 40 Mg Tablet 40 Mg PO HS Synthroid (Levothyroxine Sodium) 50 Mcg Tablet 50 Mcg PO DAILY Lisinopril 10 Mg Tablet 10 Mg PO DAILY Instructions to patient/family Please see electronic discharge instructions given to patient. Diagnosis/Problems Diagnosis/Problems (1) Myopathy (2) HFrEF (heart failure with reduced ejection fraction) Status: Acute Qualifiers: Qualified Codes: I50.22 - Chronic systolic (congestive) heart failure (3) Hypothyroid Status: Chronic (4) Acute on chronic kidney failure Status: Acute (5) Diverticulitis of intestine with perforation Status: Acute (6) Acute respiratory failure with hypoxia Status: Acute (7) Atrial fibrillation with RVR Status: Acute (8) Partial small bowel obstruction (9) Hypertension Qualifiers: Qualified Codes: I10 - Essential (primary) hypertension Clinical Quality Measures DVT/VTE Risk/Contraindication: Risk Factor Score Per Nursin RFS Level Per Nursing on Admit: 4+=Very High MATT NEWELL DO Jul 19, 2019 10:19 POS
[2019-07-19 11:00] VITALS: BP 130/62
--- NOTE | 2019-07-19 11:58 | Therapy Team Discharge Summary ---
Therapy Discharge Summary Discharge Recommendations Date of Discharge Occupational Therapy Pt admitting dx of diverticulitis and deconditioning. Pt admitting QC's include max A for bathing, UB min A, LB TD, footwear TD, and toilet hygiene TD. Pt and OT worked towards higher functional IND through ADL retraining, AE use training, UE exercises and functional activities. Pt demonstrated difficulties with motivation at times and colostomy care. Pt d/c to daughter's home with IND with toileting with commode, IND with LB/ UB dressing with AE, and min A with footwear (DALLIN hose). OT AE recommendations include: bedside commode, walker tray, hip kit, and dallin hose jania (pt requires assist donning onto jania intermittently). Pt d/c OT services at this time. Decreased Activ Tolerance, Decreased UE Strength, Impaired I ADL's PT Snf Goals Snf Goals PT Satellite Specialist Goals Time Frame: Jul 19, 2019 Roll Left to Right (QC): 5 Sit to Lying (QC): 5 Lying-Sitting on Side/Bed(QC): 5 Sit to Stand (QC): 5 Chair/Qjy-hd-Egadv Xfer(QC): 5 Car Transfer (QC): 5 Does the Patient Walk: Yes Distance: 150' Walk 10 feet (QC): 4 (CGA) Walk 10ft-Uneven Surface(QC): 4 (CGA) Walk 50ft with 2 Turns (QC): 4 (CGA) Walk 150 ft (QC): 4 Gait Assistive Device: FWW Does the Pt use WC or Scooter?: No 1 Step (curb) (QC): 3 (Mildred) 4 Steps (QC): 4 12 Steps (QC): 10 Picking up an Object (QC): 88 OT Satellite Specialist Goals Snf Goals Time Frame: Jul 25, 2019 Eating (QC): 6 (met) Oral Hygiene (QC): 6 (met) Shower/Bathe Self (QC): 5 (met) Upper Body Dressing (QC): 6 (met) Lower Body Dressing (QC): 4 (met) On/Off Footwear (QC): 6 (met) Toileting Hygiene (QC): 4 (met) Toilet/Commode Transfer (QC): 6 (met) Eating (QC): 6 Oral Hygiene (QC): 6 Shower/Bathe Self (QC): 6 Upper Body Dressing (QC): 6 Lower Body Dressing (QC): 6 On/Off Footwear (QC): 6 Toileting Hygiene (QC): 6 Toilet/Commode Transfer (QC): 6 Additional Goals: 1-Demonstrate ADL Tasks, 2-Verbalize Understanding, 3- ImproveStrength/Chuyita Additional Goals: 1-Demonstrate ADL Tasks, 2-Verbalize Understanding, 3- ImproveStrength/Chuyita 1=Demonstrate adherence to instructed precautions during ADL tasks. 2=Patient will verbalize/demonstrate understanding of assistive devices/modifications for ADL. 3=Patient will improve strength/tolerance for activity to enable patient to perform ADL's. CHRYSTAL HOPE OTR Jul 19, 2019 11:58 POS
== END 2019-07-19 11:10 | disposition home health service (06) | DRG 92 ==
PROVIDERS: ADMIT Internal Medicine; ATTEND Internal Medicine
DX: G72.81 Critical illness myopathy (principal); T81.41XA Infection following a procedure, superficial incisional surgical site, initial encounter; I13.0 Hypertensive heart and chronic kidney disease with heart failure and stage 1 through stage 4 chronic kidney disease, or unspecified chronic kidney disease; I50.22 Chronic systolic (congestive) heart failure; N18.9 Chronic kidney disease, unspecified; N17.9 Acute kidney failure, unspecified; L89.899 Pressure ulcer of other site, unspecified stage; G62.9 Polyneuropathy, unspecified; Z66 Do not resuscitate; E87.70 Fluid overload, unspecified; K21.9 Gastro-esophageal reflux disease without esophagitis; E03.9 Hypothyroidism, unspecified; E78.00 Pure hypercholesterolemia, unspecified; I48.91 Unspecified atrial fibrillation; D50.9 Iron deficiency anemia, unspecified; D63.8 Anemia in other chronic diseases classified elsewhere; R60.0 Localized edema; Z93.3 Colostomy status; Z90.710 Acquired absence of both cervix and uterus
CPT/HCPCS: 36415; 80053; 80069; 82565; 83540; 84134; 85025; 85027

== ENCOUNTER 2019-09-05 14:21 | Outpatient (RCR) | payer MEDICARE, OTHER ==
[~2019-09-05 14:21] MED LIST changes: +ACET325T38 PO; +BUME1TAB8 PO; +ENOX40DI13 SQ; +GABA-488 PO; -HYDR-3812 PO; +LIDO700A45 TP; +MELA3TAB39 PO; +ONDA-105 PO; -ONDA4TAB10 PO; +ONDN4T PO; +PANT40TA2 PO; +PANT40TA3 PO; +POLY17PO31 PO; +SIMV40TA25 PO; -SIMV40TA4 PO
[2019-09-11] MEDS ORDERED: POLY17PO6 PO (07:44)
[2019-09-11] MEDS ORDERED: VIT1CAPS44 PO (07:45)
[2019-09-11] MEDS ORDERED: PANT40TA3 PO (07:45)
[2019-09-11] MEDS ORDERED: ASPI-983 PO (08:21)
[2019-09-11] MEDS ORDERED: GABA-488 PO (08:21)
[2019-09-11] MEDS ORDERED: MTP25TSR PO (08:21)
[2019-09-11] MEDS ORDERED: FURO-125 PO (08:22)
== END 2019-12-04 | disposition home or self-care (01) ==
LOC: ONC 14:21
PROVIDERS: ATTEND Internal Medicine Hematology & Oncology
DX: C18.1 Malignant neoplasm of appendix (principal); J90 Pleural effusion, not elsewhere classified; I10 Essential (primary) hypertension; E78.2 Mixed hyperlipidemia; E03.9 Hypothyroidism, unspecified; R60.1 Generalized edema; Z98.890 Other specified postprocedural states
CPT/HCPCS: 99214

== ENCOUNTER → 2019-09-06 | Outpatient (CLI) | payer MEDICARE, OTHER ==
[~2019-09-06] VITALS: Ht 157 cm; Wt 100.0 kg
[~2019-09-06] MED LIST changes: +CATHETER FLUSH 10 ML SYR IV PRN; +HYDR-3812 PO; +MELA3TAB PO; -MELA3TAB39 PO; -ONDA-105 PO; +ONDA4TAB10 PO; +REGADENOSON 0.4 MG/5 ML SYR (LEXISCAN) IV ONE; -SIMV40TA25 PO; +SIMV40TA4 PO
[2019-09-06 08:17] VITALS: BP 197/94
--- NOTE | 2019-09-09 15:09 | STRESS TEST ---
DATE OF SERVICE: 09/06/2019 LEXISCAN MYOVIEW STRESS TEST REPORT REFERRING PHYSICIAN: Dr. Gómez. Baseline heart rate is 69, baseline blood pressure 211/96. Baseline EKG is sinus rhythm with no ischemic changes. In summary, the patient was injected with 10.8 mCi of technetium-99 Myoview and the resting images were obtained. Then, the patient received 0.4 mg of Lexiscan followed by 30.2 mCi of technetium-99 Myoview. Throughout the test, there were no EKG changes. The resting and stress images were reviewed and compared in the short axis, horizontal long axis, and vertical long axis views. Review of the images showed breast attenuation with reversible ischemia involving the whole anterior wall and anterolateral wall. SSS is 9, SDS 9, TID value 0.96. On the gated images, the left ventricle appeared to be in normal size with normal contractility. Calculated ejection fraction 68%. CONCLUSION: 1. The patient tolerated Lexiscan well. 2. Breast attenuation with reversible ischemia involving the whole anterior wall and anterolateral wall. 3. Normal left ventricular size with normal contractility. Calculated ejection fraction 68%. Job ID: [id number] DocumentID: [id number] Dictated Date: 09/09/2019 12:28:21 Marine Surveyor Date: 09/09/2019 15:09:18 Dictated By: HAL DOUGLAS MD
== END ==
LOC: CARD 06:48
PROVIDERS: ATTEND Internal Medicine Cardiovascular Disease
DX: I08.1 Rheumatic disorders of both mitral and tricuspid valves (principal); I10 Essential (primary) hypertension; I21.9 Acute myocardial infarction, unspecified; E78.2 Mixed hyperlipidemia; I65.29 Occlusion and stenosis of unspecified carotid artery
CPT/HCPCS: 78452; 93017; 93306

== ENCOUNTER 2019-09-11 06:37 | Day surgery (SDC) | payer MEDICARE, OTHER ==
[~2019-09-11] VITALS: Ht 157 cm; Wt 99.0 kg
[2019-09-11] VITALS (10 sets, daily range): BP systolic 128–173; BP diastolic 60–78
[~2019-09-11 06:37] MED LIST changes: -CATHETER FLUSH 10 ML SYR IV PRN; -MELA3TAB PO; +MELA3TAB65 PO; -REGADENOSON 0.4 MG/5 ML SYR (LEXISCAN) IV ONE; +SIMV40TA25 PO; -SIMV40TA4 PO
[2019-09-11] MEDS ORDERED: NS IV 1000 ML 3,000 ML ONE (06:48)
[2019-09-11] MEDS ORDERED: LIDOCAINE 1% INJ 20 ML 20 ML VIAL ONE (06:48)
[2019-09-11] MEDS ORDERED: HEParin 1000 UNIT/ML (10ML VIAL) FOR BOLUS ONE (06:48)
[2019-09-11] MEDS ORDERED: NS IV 1000 ML 1,000 ML IV SCH ×2 (07:00→09:24)
[2019-09-11 07:26] LABS: HEMOGLOBIN 9.6 G/DL (11.5-16.0); MEAN PLATELET VOLUME 11.6 FL (7.4-10.4); RED CELL DISTRIBUTION WIDTH 15.5 % (10.0-14.5); WHITE BLOOD COUNT 9.7 10^3/uL (4.3-11.0)
[2019-09-11 07:28] LABS: BILIRUBIN,URINE NEGATIVE (NEGATIVE); CLARITY,URINE SL CLOUDY; COLOR,URINE YELLOW; GLUCOSE, URINE (UA) NEGATIVE (NEGATIVE); KETONES,URINE NEGATIVE (NEGATIVE); LEUKOCYTE ESTERASE ,URINE 2+ (NEGATIVE); NITRITE,URINE POSITIVE (NEGATIVE); PH,URINE 5.5 (5-9); PROTEIN,URINE TRACE (NEGATIVE)
[2019-09-11 07:38] LABS: BACTERIA,URINE MODERATE /HPF; SQUAMOUS EPITHELIAL CELL,UR 0-2 /HPF; WBC,URINE 50-100 /HPF
[2019-09-11 07:39] LABS: PROTHROMBIN TIME PATIENT 13.7 SEC (12.2-14.7)
[2019-09-11] MEDS ORDERED: POLY17PO6 PO (07:44)
[2019-09-11 07:45] LABS: ALBUMIN 4.2 GM/DL (3.2-4.5); BILIRUBIN,TOTAL 0.3 MG/DL (0.1-1.0); CREATININE SERUM 1.85 MG/DL (0.60-1.30); POTASSIUM 4.8 MMOL/L (3.6-5.0); TOTAL PROTEIN 6.7 GM/DL (6.4-8.2)
[2019-09-11] MEDS ORDERED: VIT1CAPS44 PO (07:45)
[2019-09-11] MEDS ORDERED: PANT40TA3 PO (07:45)
--- NOTE | 2019-09-11 07:52 | Diagnostic Imaging Report ---
INDICATION: Preoperative evaluation in a patient with coronary artery disease Upright portable AP view of the chest is obtained. Comparison is made to study of 06/06/2019. Overall heart size and pulmonary vascularity are within normal limits. Minimal linear atelectasis or scarring seen in the left base. There is no evidence of significant pleural fluid. IMPRESSION: Slight left basilar atelectasis or scarring without other evidence of acute abdomen. Dictated by: Dictated on workstation # [id number]
[2019-09-11] MEDS ORDERED: MIDAZOLAM 5 MG/5 ML (VERSED) VIAL ONE (08:03)
[2019-09-11] MEDS ORDERED: fentaNYL INJECTION 100 MCG/2 ML AMP ONE (08:03)
[2019-09-11] MEDS ORDERED: MTP25TSR PO (08:21)
[2019-09-11] MEDS ORDERED: GABA-488 PO (08:21)
[2019-09-11] MEDS ORDERED: ASPI-983 PO (08:21)
[2019-09-11] MEDS ORDERED: FURO-125 PO (08:22)
--- NOTE | 2019-09-11 08:50 | Cardiac Procedure Note-CS/ASA ---
Pre-Procedure Note Pre-Op Procedure Note H&P Reviewed The H&P was reviewed, patient examined and no changes noted. Date H&P Reviewed: Sep 11, 2019 Time H&P Reviewed: 08:49 Conscious Sedation Pre-Proced Time 08:49 ASA Score 3 For ASA 3 and 4: Consider anesthesia and medical clearance. Also, for patients with a history of failed moderate sedation consider anesthesia. Airway Lungs Heart ASA score ASA 1: a normal healthy patient ASA 2: a patient with a mild systemic disease (mid diabetes, controlled hypertension, obesity x ASA 3: a patient with a severe systemic disease that limits activity (angina, COPD, prior Myocardial infarction) ASA 4: a patient with an incapacitating disease that is a constant threat to life (CHF, renal failure) ASA 5: a moribund patient not expected to survive 24 hrs. (ruptured aneurysm) ASA 6: a declared brain- patient whose organs are being harvested. For emergent operations, add the letter E after the classification Mallampati Classification Grade 3 Sedation Plan Analgesia, Amnesia, Plan communicated to team members, Discussed options with patient/fam, Discussed risks with patient/fam The patient is an appropriate candidate to undergo the planned procedure, sedation, and anesthesia. The patient immediately re-assessed prior to indication. HAL DOUGLAS MD Sep 11, 2019 08:50
--- NOTE | 2019-09-11 09:07 | NUR ---
SPOKE WITH THE PT AND HER DAUGHTER WELL CALLING [employer] [facility] AND [employer] MA[facility] ORDER TO COMPLETE THE MED REC. THE PT AND HER DAUGHTER WERE ABLE TO TELL ME HER MEDS AND HOW/WHEN SHE TAKES EACH. THE FOLLOWING ARE FILL DATES FROM HER PHARMACIES: 06-12-2019 LEVOTHYROXINE #90/90DS ([facility]) 07-09-2019 LISINOPRIL #90/90 ([facility]) 07-19-2019 PANTOPRAZOLE #30 ([facility]) 07-26-2019 GABAPENTIN #270/90DS ([facility]) 08-07-2019 AMITRIPTYLINE #90/90D ([facility] [facility]) 08-30-2019 SIMVASTATIN #90/90DS ([employer]) 09-05-2019 METOPROLOL #30/30DS ([facility]) 09-05-2019 FUROSEMIDE #30/30DS ([facility]) MAIL ORDER ALSO FILLED BUMETANIDE ON 08-02-2019 #60 HOWEVER PT SAID SHE WAS SWITCHED TO LASIX. OTC MEDS: ASPIRIN DOCUSATE MIRALAX PRESERVISION
[2019-09-11] MEDS ORDERED: ADENOSINE 3 MG/1 ML (ADENOSCAN) 30ML VIAL IV ONE ×2 (09:09→09:25)
--- NOTE | 2019-09-11 09:28 | Discharge Inst-Post CATH ---
Discharge Inst-CATH/EP Problems Reviewed?: Yes Post Cardiac Cath/EP D/C Inst Follow Up/Plan Appointment with Dr. Hills's office in 2-4 weeks <b>CARDIAC CATH/EP PROCEDURE DISCHARGE INSTRUCTIONS</b> ACTIVITY * Go Home directly and rest. * Limit activity of the leg (or wrist if it was used) for 7 days including aerobics, swimming, jogging, bicycling, etc. * Restrict stair-climbing for 7 days if possible, if not, climb up with your non-cath leg, then bring together on the same step. * Avoid lifting, pushing, pulling or excessive movement of the affected extremity for 7 days. * Customary sexual activity may be resumed after 2 days-use caution not to use a position that strains or causes pain to the affected extremity. * No driving for 24 hours. * NO SMOKING. * Avoid straining for bowel movements for 7 days. * Gentle walking on level ground is allowed. * Returning to work will depend on the type of procedure and the results. Your doctor will discuss this with you. CALL YOUR DOCTOR FOR ANY OF THE FOLLOWING: *If bleeding from the puncture site occurs- Apply gentle pressure to site with clean cloth and call your doctor or EMS. * If a knot or lump forms under the skin, increases in size, or causes pain. * If bruising appears to be worsening or moving further down your leg instead of disappearing. * Temperature above 101 F. CARE OF YOUR GROIN INCISION; * Bruising or purple discoloration of the skin near the puncture site is common. * You may shower only, no bathtub bathing for 5 days. Be careful to avoid slipping as your leg may feel stiff. * If a closure device was used on your femoral artery, please see the attached guide regarding care of the device and your leg. * Leave dressing on FOR 24 hours. CARE OF YOUR WRIST INCISION; * Bruising or purple discoloration of the skin near the puncture site is common. * You may shower. * DO NOT submerge wrist. * Leave dressing on FOR 24 hours. HAL HILLS MD Sep 11, 2019 09:28
[2019-09-11] MEDS ORDERED: PATIENT MAY USE OWN MEDS, ALL PO SCH (09:30)
--- NOTE | 2019-09-11 09:32 | Cardiac Cath Report ---
Cardiac Cath Report Physician (s)/Cosmetic Sales Consultant (s) Physician HAL DOUGLAS MD Pre-Procedure Diagnosis Pre-Procedure Diagnosis: Coronary artery disease Post-Procedure Note Procedure Start Date: Sep 11, 2019 Name of Procedure: Left heart catheterization FFR to LAD Findings/Procedure Note PROCEDURE NOTE: 79 year old lady with history of hypertension, hyperlipidemia, chronic renal insufficiency. Had an abnormal stress test with anterior wall ischemia teri eduled for cardiac catheterization possible PTCA. After explaining the procedure to the patient, all pros and cons were explained, all questions were answered. The patient signed the consent and then she was placed on the cardiac catheterization laboratory. Groin was prepped SL fashion local anesthesia was used. Sheath placed in the right femoral artery. Katya right and left catheter were used to access the coronary system. Pigtail was used to access the left ventricular cavity. patient had a borderline lesion in the LAD, given 4000 units of heparin, FL guide was used, FFR wire was advanced to the distal LAD, baseline was 0.91, given adenosine drip, lowest FFR was 0.83. Wire was removed, occasional Left ventriculogram was not done At the end of the procedure the sheath was removed. Closure device was used FINDINGS: Hemodynamics LV 145/11, end-diastolic pressure of 11 Aorta 167/67 mean of 77 ANATOMY: Left Main is free of obstructive disease Left Anterior Descending has 50 percent stenosis at the midportion, FFR 0.91, after Adenosine drip was 0.83 Left Circumflex is moderate in size with no significant obstructive disease Right Coronory Artery is moderate in size with no significant obstructive disease LV Gram was not done, pressure was measured CONCLUSION: 1. 50 percent stenosis in the mid LAD, FFR 0.83 after Adenosine drip 2. Otherwise mild to moderate coronary artery disease nonobstructive disease 3. Normal left ventricular end-diastolic pressure DISCUSSION AND RECOMMENDATION: medical therapy is recommended no intervention is warranted Anesthesia Type: Conscious Sedation Estimated blood loss (mL): 25 ml Contrast Amount: 40 ml Total Radiation Dose: 549 mGy Post-Procedure Diagnosis Post-operative diagnosis: Coronary artery disease Hypertension Hyperlipidemia Chronic renal insufficiency HAL DOUGLAS MD Sep 11, 2019 09:32
== END 2019-09-11 14:55 | disposition home or self-care (01) ==
LOC: CATH 06:37 → SDC 09:54 → CATH 14:55
PROVIDERS: ATTEND Internal Medicine Cardiovascular Disease
DX: I25.10 Atherosclerotic heart disease of native coronary artery without angina pectoris (principal); I13.0 Hypertensive heart and chronic kidney disease with heart failure and stage 1 through stage 4 chronic kidney disease, or unspecified chronic kidney disease; I50.22 Chronic systolic (congestive) heart failure; I48.91 Unspecified atrial fibrillation; I07.1 Rheumatic tricuspid insufficiency; I21.9 Acute myocardial infarction, unspecified; I47.1 Supraventricular tachycardia; I65.29 Occlusion and stenosis of unspecified carotid artery; M51.16 Intervertebral disc disorders with radiculopathy, lumbar region; E78.2 Mixed hyperlipidemia; E03.9 Hypothyroidism, unspecified; G60.9 Hereditary and idiopathic neuropathy, unspecified; M48.061 Spinal stenosis, lumbar region without neurogenic claudication; M19.90 Unspecified osteoarthritis, unspecified site; N18.9 Chronic kidney disease, unspecified; Z88.2 Allergy status to sulfonamides; Z79.82 Long term (current) use of aspirin; Z79.891 Long term (current) use of opiate analgesic; Z79.899 Other long term (current) drug therapy; Z82.49 Family history of ischemic heart disease and other diseases of the circulatory system; Z83.3 Family history of diabetes mellitus; Z80.3 Family history of malignant neoplasm of breast; Z80.8 Family history of malignant neoplasm of other organs or systems
CPT/HCPCS: 36415; 36430; 71045; 80053; 80061; 81000; 85027; 85610; 85730; 87077; 87081; 87088; 93458

== ENCOUNTER 2020-01-06 08:55 | Outpatient (RCR) | payer MEDICARE, OTHER ==
[~2020-01-06 08:55] MED LIST changes: +FURO-125 PO; -HYDR-3812 PO; +MELA3TAB39 PO; -MELA3TAB65 PO; +MTP25TSR PO; +ONDA-105 PO; -ONDA4TAB10 PO; +POLY17PO6 PO; +VIT1CAPS44 PO
== END 2020-01-07 | disposition home or self-care (01) ==
PROVIDERS: ATTEND Family Medicine
DX: M48.061 Spinal stenosis, lumbar region without neurogenic claudication (principal)

== ENCOUNTER 2020-02-13 05:34 | Outpatient (RCR) | payer MEDICARE, OTHER ==
[~2020-02-13] VITALS: Ht 160 cm; Wt 95.4 kg
[~2020-02-13 05:34] MED LIST changes: +GABA300C PO; +LISI10TA PO
== END 2020-02-13 14:44 | disposition home or self-care (01) ==
LOC: PREOP 05:34
PROVIDERS: ATTEND Surgery
DX: Z01.818 Encounter for other preprocedural examination (principal); Z11.59 Encounter for screening for other viral diseases
CPT/HCPCS: 87635

== ENCOUNTER → 2020-02-18 | Day surgery (SDC) | payer MEDICARE, OTHER ==
[~2020-02-18] MED LIST changes: +LACTATED RINGERS 1,000 ML IV ONE; +LACTATED RINGERS 1,000 ML IV STA
--- NOTE | 2020-02-18 08:52 | NUR ---
pt to endoscopy. she reports she drank coffee with creamer at 0700 today. anesthesia notified. decided to delay procedure.
== END | disposition home or self-care (01) ==
LOC: ENDO 08:48
PROVIDERS: ATTEND Surgery
DX: Z87.19 Personal history of other diseases of the digestive system (principal); Z53.9 Procedure and treatment not carried out, unspecified reason

== ENCOUNTER → 2020-02-19 | Day surgery (SDC) | payer MEDICARE, OTHER ==
[~2020-02-19] VITALS: Ht 160 cm; Wt 95.4 kg
[2020-02-19] VITALS (7 sets, daily range): BP systolic 107–137; BP diastolic 52–88
[~2020-02-19] MED LIST changes: +ESMOLOL 100 MG/10 ML (BREVIBLOC) VIAL ONE; +FLEET ENEMA ADULT 1 EA BTL ONE; -LACTATED RINGERS 1,000 ML IV ONE; +MIDAZOLAM 2 MG/2 ML (VERSED) VIAL ONE; +proPOfol 200 MG/20 ML (DIPRIVAN) VIAL IV ONE
--- OUTSIDE RECORDS SUMMARY | 2020-02-19 08:00 | XMS REPORT | Continuity of Care Document ---
Author Author YESSYLoretta AMEZCUA [facility] Address Unknown Phone Unavailable Care Team Providers Care Instrument Tech Name Role Phone [facility] Unavailable Unavailable Problems No Data Provided for This Section Medications Combined list of all outpatient medications recorded within the last 15 months b y all Department of Defense and Veterans Affairs facilities, and also all [facility] t-reported medications. Medication Details Route Status Patient Instructions Prescription Expires Prescript ion Number Last Dispense Date Ordering Pr ovider Order Date Source AMITRIPTYLINE HCL (AMITRIPTYLINE HCL), 1 0MG, TABLET, ORAL, SANDOZ, 1000 ea. BOTTLE Active [id number] 11/04/2019 [facility] 11/04/2019 [facility] AMITRIPTYLINE HCL (AMITRIPTYLINE HCL), 1 0MG, TABLET, ORAL, SANDOZ, 1000 ea. BOTTLE Active [id number] 02/02/2020 [facility] 02/02/2020 [facility] AZITHROMYCIN (azithromycin), 250 MG, TAB LET, ORAL, [employer] 6 ea. BLIST PACK Active [id number] 10/22/2019 [facility], 10/23/2019 [facility] AZITHROMYCIN (azithromycin), 250 MG, TAB LET, ORAL, [employer] 6 ea. BLIST PACK Active [id number] 10/15/2019 [facility], 10/17/2019 [facility] BUMETANIDE (bumetanide), 1 MG, TABLET, O RAL, [facility]AR, 100 ea. BOTTLE Active [id number] 09/13/2019 [facility] 09/14/2019 [facility] BUMETANIDE (bumetanide), 1 MG, TABLET, O RAL, [facility]GE PHAR, 100 ea. BOTTLE Active [id number] 07/19/2019 [facility] 07/19/2019 [facility] BUMETANIDE (bumetanide), 1 MG, TABLET, O RAL, EDENBRIDGE PHAR, 500 ea. BOTTLE Active [id number] 12/19/2019 [facility] 12/25/2019 [facility] BUMETANIDE (BUMETANIDE), 1MG, TABLET, OR AL, [facility], 100 ea. BOTTLE Active [id number] 08/01/2019 [facility] 08/03/2019 [facility] CIPROFLOXACIN HCL (CIPROFLOXACIN HCL), 2 50 MG, TABLET, ORAL, PACK PHARMACEUT, 100 ea. BOTTLE Active [id number] 09/16/2019 [facility], 09/20/2019 [facility] FUROSEMIDE (furosemide), 20 MG, TABLET, ORAL, [employer] 1000 ea. BOTTLE Active [id number] 11/19/[facility] FUROSEMIDE (FUROSEMIDE), 20MG, TABLET, O RAL, MYLAN, 1000 ea. BOTTLE Active [id number] 09/05/2019 [facility], 09/07/2019 [facility] FUROSEMIDE (FUROSEMIDE), 20MG, TABLET, O RAL, MYLAN, 1000 ea. BOTTLE Active [id number] 09/28/2019 [facility], 09/28/2019 [facility] FUROSEMIDE (FUROSEMIDE), 40MG, TABLET, O RAL, [facility] 1000 ea. BOTTLE Active [id number] 06/12/2019 [facility] 06/19/2019 [facility] GABAPENTIN (GABAPENTIN), 300 MG, CAPSULE , ORAL, [facility], 500 ea. BOTTLE Active [id number] 07/19/2019 [facility], 07/19/2019 [facility] GABAPENTIN (gabapentin), 300 MG, CAPSULE , ORAL, [employer] 1000 ea. BOTTLE Active [id number] 07/24/2019 [facility] 07/24/2019 [facility] GABAPENTIN (gabapentin), 300 MG, CAPSULE , ORAL, [employer] 1000 ea. BOTTLE Active [id number] 11/19/2019 [facility] 11/22/2019 [facility] GUAIFENESIN-CODEINE (codeine phosphate/g uaifenesin), 10-100MG/5, LIQUID, ORAL, PHARMACEUTICAL, 237 ml BOTTLE Active [id number] 10/15/2019 [facility], 10/17/2019 [facility] HYDROCODONE-ACETAMINOPHEN (HYDROCODONE/A CETAMINOPHEN), 5MG-325MG, TABLET, ORAL, MALLINCKRODT PH, 500 ea. BOTTLE Active [id number] [facility], 06/14/2019 [facility] HYDROCODONE-ACETAMINOPHEN (HYDROCODONE/A CETAMINOPHEN), 5MG-325MG, TABLET, ORAL, MALLINCKRODT PH, 500 ea. BOTTLE Active [id number] [facility], 03/23/2019 [facility] LEVOFLOXACIN (LEVOFLOXACIN), 250 MG, TAB LET, ORAL, AUROBINDO PHARM, 50 ea. BOTTLE Active [id number] 03/11/2019 [facility], 03/12/2019 [facility] LEVOTHYROXINE SODIUM (LEVOTHYROXINE SODI UM), 50MCG, TABLET, ORAL, MYLAN, 1000 ea. BOTTLE Active [id number] 12/19/2019 [facility] 12/25/2019 [facility] LEVOTHYROXINE SODIUM (LEVOTHYROXINE SODI UM), 50MCG, TABLET, ORAL, MYLAN, 1000 ea. BOTTLE Active [id number] 06/12/2019 [facility] 06/19/2019 [facility] LEVOTHYROXINE SODIUM (LEVOTHYROXINE SODI UM), 50MCG, TABLET, ORAL, MYLAN, 1000 ea. BOTTLE Active [id number] 09/10/2019 [facility] 09/11/2019 [facility] LIDOCAINE (LIDOCAINE), 5%(700MG), ADH. P ATCH, TOPICAL, [employer] PHARMA,, 30 ea. BOX Active [id number] 07/19/2019 [facility] 07/19/2019 [facility] LISINOPRIL (LISINOPRIL), 10 MG, TABLET, ORAL, EXELAN PHARMACE, 1000 ea. BOTTLE Active [id number] 04/09/2019 [facility] 06/01/2019 [facility] LISINOPRIL (LISINOPRIL), 10 MG, TABLET, ORAL, EXELAN PHARMACE, 1000 ea. BOTTLE Active [id number] 07/08/2019 [facility] 07/09/2019 [facility] LISINOPRIL (LISINOPRIL), 10 MG, TABLET, ORAL, EXELAN PHARMACE, 1000 ea. BOTTLE Active [id number] 10/06/2019 [facility] 10/06/2019 [facility] LISINOPRIL (LISINOPRIL), 10 MG, TABLET, ORAL, EXELAN PHARMACE, 1000 ea. BOTTLE Active [id number] 01/04/2020 [facility] 01/04/2020 [facility] METOPROLOL SUCCINATE (metoprolol succina te), 25 MG, TAB ER 24H, ORAL, INGENUS PHARMAC, 1000 ea. BOTTLE Active [id number] 09/05/2019 [facility], 09/07/2019 [facility] METOPROLOL SUCCINATE (metoprolol succina te), 25 MG, TAB ER 24H, ORAL, INGENUS PHARMAC, 1000 ea. BOTTLE Active [id number] 09/28/2019 [facility], 09/28/2019 [facility] POTASSIUM CHLORIDE (potassium chloride), 20 MEQ, TAB ER PRT, ORAL, AVKARE, 500 ea. BOTTLE Active [id number] 06/12/2019 [facility] 06/19/2019 [facility] SIMVASTATIN (SIMVASTATIN), 40 MG, TABLET , ORAL, GEN-SOURCE RX, 1000 ea. BOTTLE Active [id number] 08/27/2019 [facility] 08/28/2019 [facility] SIMVASTATIN (SIMVASTATIN), 40 MG, TABLET , ORAL, GEN-SOURCE RX, 1000 ea. BOTTLE Active [id number] 11/25/2019 [facility] 11/26/2019 [facility] SYNTHROID (LEVOTHYROXINE SODIUM), 25MCG, TABLET, ORAL, [facility] 1000 ea. BOTTLE Active [id number] 12/13/2018 [facility] 12/15/2018 [facility] TIMOLOL MALEATE (TIMOLOL MALEATE), 0.5%, DROPS, OPHTHALMIC, RUIZ PHARM, 10 ml DROP BTL Active [id number] 12/11/2019 [facility] 12/13/2019 [facility] TIMOLOL MALEATE (TIMOLOL MALEATE), 0.5%, DROPS, OPHTHALMIC, RUIZ PHARM, 5 ml DROP BTL Active [id number] 11/19/2019 [facility] 11/23/2019 [facility] TIMOLOL MALEATE (TIMOLOL MALEATE), 0.5%, DROPS, OPHTHALMIC, RUIZ PHARM, 5 ml DROP BTL Active [id number] 10/29/2019 [facility] 10/30/2019 [facility] TIMOLOL MALEATE (TIMOLOL MALEATE), 0.5%, DROPS, OPHTHALMIC, RUIZ PHARM, 5 ml DROP BTL Active [id number] 11/28/2018 [facility] 11/28/2018 [facility] TOPROL XL (metoprolol succinate), 25 MG, TAB ER 24H, ORAL, ARALEZ/NEW AMER, 1000 ea. BOTTLE Active [id number] 11/19/2019 [facility] 11/22/2019 [facility] TOPROL XL (metoprolol succinate), 25 MG, TAB ER 24H, ORAL, ARALEZ/NEW AMER, 1000 ea. BOTTLE Active [id number] 02/02/2020 [facility] 02/02/2020 [facility] TRAVATAN Z (TRAVOPROST), 0.004%, DROPS, OPHTHALMIC, [facility]., 2.5 ml DROP BTL Active [id number] 10/29/2019 [facility] 10/30/2019 [facility] TRAVATAN Z (TRAVOPROST), 0.004%, DROPS, OPHTHALMIC, [facility]S., 2.5 ml DROP BTL Active [id number] 04/09/2019 [facility] 06/02/2019 [facility] TRIAMCINOLONE ACETONIDE (TRIAMCINOLONE A CETONIDE), 0.1%, CREAM(GM), TOPICAL, PERRIGO [employer]., 15 g TUBE Active [id number] 02/18/2019 [facility] 02/19/2019 [facility] TRIAMCINOLONE ACETONIDE (TRIAMCINOLONE A CETONIDE), 0.1%, CREAM(GM), TOPICAL, PERRIGO CO., 15 g TUBE Active [id number] 08/30/2019 [facility] 08/30/2019 [facility] TRIAMCINOLONE ACETONIDE (TRIAMCINOLONE A CETONIDE), 0.1%, CREAM(GM), TOPICAL, PERRIGO CO., 80 g TUBE Active [id number] 12/14/2018 [facility] 12/16/2018 [facility] TRIAMCINOLONE ACETONIDE (TRIAMCINOLONE A CETONIDE), 0.1%, CREAM(GM), TOPICAL, PERRIGO CO., 80 g TUBE Active [id number] 12/29/2018 [facility] 01/05/2019 [facility] Allergies, Adverse Reactions, Alerts No Known Medication Allergies Immunizations No Data Provided for This Section Results No Data Provided for This Section Vital Signs No Data Provided for This Section Encounters No Data Provided for This Section Procedures No Data Provided for This Section Social History Combined list of available smoking, tobacco, and other social history on record at Department of Defense and/or Veterans Affairs facilities. The included entrie s comply with the patient's data sharing authorizations. Social History Type Response Date Comment Source This section is an empty social history section. DoD Assessment and Plan No Data Provided for This Section Plan of Care No Data Provided for This Section Family History No Data Provided for This Section Advance Directives No Data Provided for This Section Functional Status No Data Provided for This Section
--- OUTSIDE RECORDS SUMMARY | 2020-02-19 08:01 | XMS REPORT | Continuity of Care Document ---
Author Organization Unknown Address Unknown Phone Unavailable Allergies Active Description Code Type Severity Reaction Onset Reported/Identified Relationship to Patient Clinical Status Yes SULFA SULFA Unknown N/A 05/27/2019 Yes Sulfa (Sulfonamide Antibiotics) [id number] Drug Allergy Unknown N/A 019 Yes Sulfa (Sulfonamide Antibiotics) [id number] 0491 Drug Allergy Mild ITCHING/SWOLLEN 02/11/2020 Medications There is no data. Problems Date Dx Coded Attending Type Code Diagnosis Diagnosed By 07/27/1443 NAJMA MALCOLM DO Ot Z01.818 ENCOUNTER FOR OTHER PREPROCEDURAL EXAMIN 07/27/1443 NAJMA MALCOLM DO Ot Z11. 59 ENCOUNTER FOR SCREENING FOR OTHER VIRAL 06/21/2011 Ot 285.9 06/21/2011 Ot 553.3 06/21/2011 Ot 562.10 12/08/2014 Ot V76.12 12/08/2014 BOLA DECKER MD Ot 593.9 12/19/2014 BOLA DECKER MD Ot 593.9 12/19/2014 CHRISTI EDWARDS MD Ot 722. 52 12/19/2014 CHRISTI EDWARDS MD Ot 722. 52 LUMB/LUMBOSAC DISC DEGEN 12/19/2014 CHRISTI EDWARDS MD Ot V58. 69 OT MED,LT,CURRENT USE 12/29/2014 CHRISTI EDWARDS MD Ot 722. 52 01/21/2015 CHRISTI EDWARDS MD Ot 722. 52 01/25/2015 CHRISTI EDWARDS MD Ot 722. 52 09/16/2015 BOLA DECKER MD Ot 593.9 09/16/2015 CHRISTI EDWARDS MD Ot 722. 52 10/09/2015 ENMA JIMENEZ Ot I65.22 11/06/2015 ENMA JIMENEZ Ot I65.22 12/11/2015 BOLA DECKER MD Ot 593.9 RENAL URETERAL DIS NOS 12/11/2015 CHRISTI EDWARDS MD Ot 722. 52 LUMB/LUMBOSAC DISC DEGEN 12/11/2015 ENMA JIMENEZ Ot I65.22 OCCLUSION AND STENOSIS OF LEFT CAROTID A 12/11/2015 CHRISTI EDWARDS MD, Ot M51. 16 INTERVERTEBRAL DISC DISORDERS W RADICULO 12/11/2015 CHRISTI EDWARDS MD Ot Z79.899 OTHER INTERMEDIATE (CURRENT) DRUG THERAPY 12/23/2015 CHRISTI EDWARDS MD, Ot M51. 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 52 LUMB/LUMBOSAC DISC DEGEN 06/06/2016 ENMA JIMENEZ Ot I65.22 OCCLUSION AND STENOSIS OF LEFT CAROTID A 06/06/2016 CHRISTI EDWARDS MD Ot M51. 16 INTERVERTEBRAL DISC DISORDERS W RADICULO 06/25/2016 CHRISTI EDWARDS MD, Ot M51. 16 INTERVERTEBRAL DISC DISORDERS W RADICULO 03/23/2017 ALEYDA DPM, LESLIE Q Ot M19.071 PRIMARY OSTEOARTHRITIS, RIGHT ANKLE AND 03/23/2017 ALEYDA DPM, LESLIE Q Ot M76. 71 PERONEAL TENDINITIS, RIGHT LEG 04/21/2017 ALEYDA DPM, LESLIE Q Ot M19.071 PRIMARY OSTEOARTHRITIS, RIGHT ANKLE AND 04/21/2017 ALEYDA DPM, LESLIE Q Ot M76. 71 PERONEAL TENDINITIS, RIGHT LEG 05/10/2017 ALEYDA DPM, LESLIE Q Ot M19.071 PRIMARY OSTEOARTHRITIS, RIGHT ANKLE AND 05/10/2017 ALEYDA DPM, LESLIE Q Ot M76. 71 PERONEAL TENDINITIS, RIGHT LEG 08/15/2017 JACQUELINE ARANA APRN Ot G47.33 OBSTRUCTIVE SLEEP APNEA (ADULT) (PEDIATR 08/29/2017 JACQUELINE ARANA APRN Ot G47.33 OBSTRUCTIVE SLEEP APNEA (ADULT) (PEDIATR 08/31/2017 JACQUELINE ARANA APRN Ot G47.33 OBSTRUCTIVE SLEEP APNEA (ADULT) (PEDIATR 09/05/2017 LEVI ARANAN R ASSISTANT INFANT TODDLER TEACHER Ot G47.33 OBSTRUCTIVE SLEEP APNEA (ADULT) (PEDIATR 11/03/2017 SUMIT, JACQUELINE R ASSISTANT INFANT TODDLER TEACHER Ot G47.10 HYPERSOMNIA, UNSPECIFIED 11/03/2017 SUMIT, JACQUELINE R ASSISTANT INFANT TODDLER TEACHER Ot G47.33 OBSTRUCTIVE SLEEP APNEA (ADULT) (PEDIATR 11/03/2017 LEVI ARANAN R ASSISTANT INFANT TODDLER TEACHER Ot R06.83 SNORING 11/07/2017 SUMIT, JACQUELINE R ASSISTANT INFANT TODDLER TEACHER Ot G47.10 HYPERSOMNIA, UNSPECIFIED 11/07/2017 SUMIT, JACQUELINE R ASSISTANT INFANT TODDLER TEACHER Ot G47.33 OBSTRUCTIVE SLEEP APNEA (ADULT) (PEDIATR 11/07/2017 SUMIT, JACQUELINE R ASSISTANT INFANT TODDLER TEACHER Ot R06.83 SNORING 11/07/2017 SUMIT, JACQUELINE R ASSISTANT INFANT TODDLER TEACHER Ot G47.10 HYPERSOMNIA, UNSPECIFIED 11/07/2017 SUMIT, JACQUELINE R ASSISTANT INFANT TODDLER TEACHER Ot G47.33 OBSTRUCTIVE SLEEP APNEA (ADULT) (PEDIATR 11/07/2017 SUMIT, JACQUELINE R ASSISTANT INFANT TODDLER TEACHER Ot R06.83 SNORING 02/22/2019 JERONIMO GIFFORD, BOLA Garcia Ot 593.9 RENAL URETERAL DIS NOS 02/22/2019 CHRISTI EDWARDS MD Ot 722. 52 LUMB/LUMBOSAC DISC DEGEN 02/22/2019 ENMA JIMENEZ Ot I65.22 OCCLUSION AND STENOSIS OF LEFT CAROTID A 02/22/2019 ALEYDA DPM, LESLIE Q Ot M19.071 PRIMARY OSTEOARTHRITIS, RIGHT ANKLE AND 02/22/2019 ALEYDA DPM, LESLIE Q Ot M76. 71 PERONEAL TENDINITIS, RIGHT LEG 02/26/2019 MADYSON HERMAN MD Ot R60. 0 LOCALIZED EDEMA 03/15/2019 MADYSON HERMAN MD Ot R60. 0 LOCALIZED EDEMA 05/28/2019 CHRISTI EDWARDS MD Ot 722. 52 LUMB/LUMBOSAC DISC DEGEN 05/28/2019 ENMA JIMENEZ Ot I65.22 OCCLUSION AND STENOSIS OF LEFT CAROTID A 05/28/2019 ALEYDA DPM, LESLIE Q Ot M19.071 PRIMARY OSTEOARTHRITIS, RIGHT ANKLE AND 05/28/2019 ALEYDA DPM, LESLIE Q Ot M76. 71 PERONEAL TENDINITIS, RIGHT LEG 05/28/2019 MADYSON HERMAN MD Ot R60. 0 LOCALIZED EDEMA 05/30/2019 MADYSON HERMAN MD Ot E03. 9 HYPOTHYROIDISM, UNSPECIFIED 05/30/2019 MADYSON HERMAN MD Ot I12. 9 HYPERTENSIVE CHRONIC KIDNEY DISEASE W ST 05/30/2019 MADYSON HERMAN MD Ot K42. 9 UMBILICAL HERNIA WITHOUT OBSTRUCTION OR 05/30/2019 MADYSON HERMAN MD Ot K52. 9 NONINFECTIVE GASTROENTERITIS AND COLITIS 05/30/2019 MADYSON HERMAN MD Ot K56. 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 09 OTHER CONSTIPATION 05/30/2019 MADYSON HERMAN MD Ot M54. 9 DORSALGIA, UNSPECIFIED 05/30/2019 MADYSON HERMAN MD Ot M79.604 PAIN IN RIGHT LEG 05/30/2019 MADYSON HERMAN MD Ot N17. 9 ACUTE KIDNEY FAILURE, UNSPECIFIED 05/30/2019 MADYSON HERMAN MD Ot N18. 9 CHRONIC KIDNEY DISEASE, UNSPECIFIED 05/30/2019 MADYSON HERMAN MD Ot N30. 01 ACUTE CYSTITIS WITH HEMATURIA 05/30/2019 MADYSON HERMAN MD Ot R11. 14 BILIOUS VOMITING 05/30/2019 MADYSON HERMAN MD Ot T40.2X5A ADVERSE EFFECT OF OTHER OPIOIDS, INITIAL 05/30/2019 MADYSON HERMAN MD Ot Z96.641 PRESENCE OF RIGHT ARTIFICIAL HIP JOINT 05/30/2019 MADYSON HERMAN MD Ot E03. 9 HYPOTHYROIDISM, UNSPECIFIED 05/30/2019 MADYSON HERMAN MD Ot I12. 9 HYPERTENSIVE CHRONIC KIDNEY DISEASE W ST 05/30/2019 MADYSON HERMAN MD Ot K42. 9 UMBILICAL HERNIA WITHOUT OBSTRUCTION OR 05/30/2019 MADYSON HERMAN MD Ot K52. 9 NONINFECTIVE GASTROENTERITIS AND COLITIS 05/30/2019 MADYSON HERMAN MD Ot K56. 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 09 OTHER CONSTIPATION 05/30/2019 MADYSON HERMAN MD Ot M54. 9 DORSALGIA, UNSPECIFIED 05/30/2019 MADYSON HERMAN MD Ot M79.604 PAIN IN RIGHT LEG 05/30/2019 MADYSON HERMAN MD Ot N17. 9 ACUTE KIDNEY FAILURE, UNSPECIFIED 05/30/2019 MADYSON HERMAN MD, Ot N18. 9 CHRONIC KIDNEY DISEASE, UNSPECIFIED 05/30/2019 MADYSON HERMAN MD, Ot N30. 01 ACUTE CYSTITIS WITH HEMATURIA 05/30/2019 MADYSON HERMAN MD Ot R11. 14 BILIOUS VOMITING 05/30/2019 MADYSON HERMAN MD Ot T40.2X5A ADVERSE EFFECT OF OTHER OPIOIDS, INITIAL 05/30/2019 MADYSON HERMAN MD, Ot Z96.641 PRESENCE OF RIGHT ARTIFICIAL HIP JOINT 05/30/2019 MADYSON HERMAN MD, Ot E03. 9 HYPOTHYROIDISM, UNSPECIFIED 05/30/2019 MADYSON HERMAN MD, Ot I12. 9 HYPERTENSIVE CHRONIC KIDNEY DISEASE W ST 05/30/2019 MADYSON HERMAN MD Ot K42. 9 UMBILICAL HERNIA WITHOUT OBSTRUCTION OR 05/30/2019 MADYSON HERMAN MD, Ot K52. 9 NONINFECTIVE GASTROENTERITIS AND COLITIS 05/30/2019 MADYSON HERMAN MD, Ot K56. 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 09 OTHER CONSTIPATION 05/30/2019 MADYSON HERMAN MD, Ot M54. 9 DORSALGIA, UNSPECIFIED 05/30/2019 MADYSON HERMAN MD Ot M79.604 PAIN IN RIGHT LEG 05/30/2019 MADYSON HERMAN MD Ot N17. 9 ACUTE KIDNEY FAILURE, UNSPECIFIED 05/30/2019 MADYSON HERMAN MD, Ot N18. 9 CHRONIC KIDNEY DISEASE, UNSPECIFIED 05/30/2019 MADYSON HERMAN MD, Ot N30. 01 ACUTE CYSTITIS WITH HEMATURIA 05/30/2019 MADYSON HERMAN MD Ot R11. 14 BILIOUS VOMITING 05/30/2019 MADYSON HERMAN MD Ot T40.2X5A ADVERSE EFFECT OF OTHER OPIOIDS, INITIAL 05/30/2019 MADYSON HERMAN MD Ot Z96.641 PRESENCE OF RIGHT ARTIFICIAL HIP JOINT 05/31/2019 MADYSON HERMAN MD Ot E03. 9 HYPOTHYROIDISM, UNSPECIFIED 05/31/2019 MADYSON HERMAN MD Ot I12. 9 HYPERTENSIVE CHRONIC KIDNEY DISEASE W ST 05/31/2019 MADYSON HERMAN MD Ot K42. 9 UMBILICAL HERNIA WITHOUT OBSTRUCTION OR 05/31/2019 MADYSON HERMAN MD Ot K52. 9 NONINFECTIVE GASTROENTERITIS AND COLITIS 05/31/2019 MADYSON HERMAN MD Ot K56. 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 09 OTHER CONSTIPATION 05/31/2019 MADYSON HERMAN MD Ot M54. 9 DORSALGIA, UNSPECIFIED 05/31/2019 MADYSON HEMRAN MD Ot M79.604 PAIN IN RIGHT LEG 05/31/2019 MADYSON HERMAN MD Ot N17. 9 ACUTE KIDNEY FAILURE, UNSPECIFIED 05/31/2019 MADYSON HERMAN MD Ot N18. 9 CHRONIC KIDNEY DISEASE, UNSPECIFIED 05/31/2019 MADYSON HERMAN MD Ot N30. 01 ACUTE CYSTITIS WITH HEMATURIA 05/31/2019 MADYSON HERMAN MD Ot R11. 14 BILIOUS VOMITING 05/31/2019 MADYSON HERMAN MD Ot T40.2X5A ADVERSE EFFECT OF OTHER OPIOIDS, INITIAL 05/31/2019 MADYSON HERMAN MD Ot Z96.641 PRESENCE OF RIGHT ARTIFICIAL HIP JOINT 05/31/2019 MADYSON HERMAN MD Ot E03. 9 HYPOTHYROIDISM, UNSPECIFIED 05/31/2019 MADYSON HERMAN MD Ot I12. 9 HYPERTENSIVE CHRONIC KIDNEY DISEASE W ST 05/31/2019 MADYSON HERMAN MD Ot K42. 9 UMBILICAL HERNIA WITHOUT OBSTRUCTION OR 05/31/2019 MADYSON HERMAN MD Ot K52. 9 NONINFECTIVE GASTROENTERITIS AND COLITIS 05/31/2019 MADYSON HERMAN MD Ot K56. 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 09 OTHER CONSTIPATION 05/31/2019 MADYSON HERMAN MD Ot M54. 9 DORSALGIA, UNSPECIFIED 05/31/2019 MADYSON HERMAN MD Ot M79.604 PAIN IN RIGHT LEG 05/31/2019 MADYSON HERMAN MD Ot N17. 9 ACUTE KIDNEY FAILURE, UNSPECIFIED 05/31/2019 MADYSON HERMAN MD, Ot N18. 9 CHRONIC KIDNEY DISEASE, UNSPECIFIED 05/31/2019 MADYSON HERMAN MD, Ot N30. 01 ACUTE CYSTITIS WITH HEMATURIA 05/31/2019 MADYSON HERMAN MD Ot R11. 14 BILIOUS VOMITING 05/31/2019 MADYSON HERMAN MD Ot T40.2X5A ADVERSE EFFECT OF OTHER OPIOIDS, INITIAL 05/31/2019 MADYSON HERMAN MD Ot Z96.641 PRESENCE OF RIGHT ARTIFICIAL HIP JOINT 05/31/2019 MADYSON HERMAN MD, Ot E03. 9 HYPOTHYROIDISM, UNSPECIFIED 05/31/2019 MADYSON HERMAN MD, Ot I12. 9 HYPERTENSIVE CHRONIC KIDNEY DISEASE W ST 05/31/2019 MADYSON HERMAN MD, Ot K42. 9 UMBILICAL HERNIA WITHOUT OBSTRUCTION OR 05/31/2019 MADYSON HERMAN MD, Ot K52. 9 NONINFECTIVE GASTROENTERITIS AND COLITIS 05/31/2019 MADYSON HERMAN MD, Ot K56. 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 09 OTHER CONSTIPATION 05/31/2019 MADYSON HERMAN MD, Ot M54. 9 DORSALGIA, UNSPECIFIED 05/31/2019 MADYSON HERMAN MD Ot M79.604 PAIN IN RIGHT LEG 05/31/2019 MADYSON HERMAN MD, Ot N17. 9 ACUTE KIDNEY FAILURE, UNSPECIFIED 05/31/2019 MADYSON HERMAN MD, Ot N18. 9 CHRONIC KIDNEY DISEASE, UNSPECIFIED 05/31/2019 MADYSON HERMAN MD, Ot N30. 01 ACUTE CYSTITIS WITH HEMATURIA 05/31/2019 MADYSON HERMAN MD Ot R11. 14 BILIOUS VOMITING 05/31/2019 MADYSON HERMAN MD Ot T40.2X5A ADVERSE EFFECT OF OTHER OPIOIDS, INITIAL 05/31/2019 MADYSON HERMAN MD Ot Z96.641 PRESENCE OF RIGHT ARTIFICIAL HIP JOINT 06/01/2019 MADYSON HERMAN MD Ot E03. 9 HYPOTHYROIDISM, UNSPECIFIED 06/01/2019 MADYSON HERMAN MD Ot I12. 9 HYPERTENSIVE CHRONIC KIDNEY DISEASE W ST 06/01/2019 MADYSON HERMAN MD Ot K42. 9 UMBILICAL HERNIA WITHOUT OBSTRUCTION OR 06/01/2019 MADYSON HERMAN MD Ot K52. 9 NONINFECTIVE GASTROENTERITIS AND COLITIS 06/01/2019 MADYSON HERMAN MD Ot K56. 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 09 OTHER CONSTIPATION 06/01/2019 MADYSON HERMAN MD Ot M54. 9 DORSALGIA, UNSPECIFIED 06/01/2019 MADYSON HERMAN MD Ot M79.604 PAIN IN RIGHT LEG 06/01/2019 MADYSON HERMAN MD Ot N17. 9 ACUTE KIDNEY FAILURE, UNSPECIFIED 06/01/2019 MADYSON HERMAN MD, Ot N18. 9 CHRONIC KIDNEY DISEASE, UNSPECIFIED 06/01/2019 MADYSON HREMAN MD Ot N30. 01 ACUTE CYSTITIS WITH HEMATURIA 06/01/2019 MADYSON HERMAN MD Ot R11. 14 BILIOUS VOMITING 06/01/2019 MADYSON HERMAN MD Ot T40.2X5A ADVERSE EFFECT OF OTHER OPIOIDS, INITIAL 06/01/2019 MADYSON HERMAN MD Ot Z96.641 PRESENCE OF RIGHT ARTIFICIAL HIP JOINT 06/02/2019 MADYSON HERMAN MD Ot E03. 9 HYPOTHYROIDISM, UNSPECIFIED 06/02/2019 MADYSON HERMAN MD Ot I12. 9 HYPERTENSIVE CHRONIC KIDNEY DISEASE W ST 06/02/2019 MADYSON HERMAN MD Ot K42. 9 UMBILICAL HERNIA WITHOUT OBSTRUCTION OR 06/02/2019 MADYSON HERMAN MD Ot K52. 9 NONINFECTIVE GASTROENTERITIS AND COLITIS 06/02/2019 MADYSON HERMAN MD Ot K56. 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 09 OTHER CONSTIPATION 06/02/2019 MADYSON HERMAN MD Ot M54. 9 DORSALGIA, UNSPECIFIED 06/02/2019 MADYSON HERMAN MD Ot M79.604 PAIN IN RIGHT LEG 06/02/2019 MADYSON HERMAN MD Ot N17. 9 ACUTE KIDNEY FAILURE, UNSPECIFIED 06/02/2019 MADYSON HERMAN MD, Ot N18. 9 CHRONIC KIDNEY DISEASE, UNSPECIFIED 06/02/2019 MADYSON HERMAN MD Ot N30. 01 ACUTE CYSTITIS WITH HEMATURIA 06/02/2019 MADYSON HERMAN MD Ot R11. 14 BILIOUS VOMITING 06/02/2019 MADYSON HERMAN MD Ot T40.2X5A ADVERSE EFFECT OF OTHER OPIOIDS, INITIAL 06/02/2019 MADYSON HERMAN MD Ot Z96.641 PRESENCE OF RIGHT ARTIFICIAL HIP JOINT 06/02/2019 MADYSON HERMAN MD Ot E03. 9 HYPOTHYROIDISM, UNSPECIFIED 06/02/2019 MADYSON HERMAN MD Ot I12. 9 HYPERTENSIVE CHRONIC KIDNEY DISEASE W ST 06/02/2019 MADYSON HERMAN MD, Ot K42. 9 UMBILICAL HERNIA WITHOUT OBSTRUCTION OR 06/02/2019 MADYSON HERMAN MD, Ot K52. 9 NONINFECTIVE GASTROENTERITIS AND COLITIS 06/02/2019 MADYSON HERMAN MD Ot K56. 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 09 OTHER CONSTIPATION 06/02/2019 MADYSON HERMAN MD Ot M54. 9 DORSALGIA, UNSPECIFIED 06/02/2019 MADYSON HERMAN MD Ot M79.604 PAIN IN RIGHT LEG 06/02/2019 MADYSON HERMAN MD Ot N17. 9 ACUTE KIDNEY FAILURE, UNSPECIFIED 06/02/2019 MADYSON HERMAN MD, Ot N18. 9 CHRONIC KIDNEY DISEASE, UNSPECIFIED 06/02/2019 MADYSON HERMAN MD Ot N30. 01 ACUTE CYSTITIS WITH HEMATURIA 06/02/2019 MADYSON HERMAN MD Ot R11. 14 BILIOUS VOMITING 06/02/2019 MADYSON HERMAN MD Ot T40.2X5A ADVERSE EFFECT OF OTHER OPIOIDS, INITIAL 06/02/2019 MADYSON HERMAN MD Ot Z96.641 PRESENCE OF RIGHT ARTIFICIAL HIP JOINT 06/03/2019 MADYSON HERMAN MD Ot E03. 9 HYPOTHYROIDISM, UNSPECIFIED 06/03/2019 MADYSON HERMAN MD Ot I12. 9 HYPERTENSIVE CHRONIC KIDNEY DISEASE W ST 06/03/2019 MADYSON HERMAN MD Ot K42. 9 UMBILICAL HERNIA WITHOUT OBSTRUCTION OR 06/03/2019 MADYSON HERMAN MD Ot K52. 9 NONINFECTIVE GASTROENTERITIS AND COLITIS 06/03/2019 MADYSON HERMAN MD Ot K56. 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 09 OTHER CONSTIPATION 06/03/2019 MADYSON HERMAN MD Ot M54. 9 DORSALGIA, UNSPECIFIED 06/03/2019 MADYSON HERMAN MD Ot M79.604 PAIN IN RIGHT LEG 06/03/2019 MADYSON HERMAN MD Ot N17. 9 ACUTE KIDNEY FAILURE, UNSPECIFIED 06/03/2019 MADYSON HERMAN MD Ot N18. 9 CHRONIC KIDNEY DISEASE, UNSPECIFIED 06/03/2019 MADYSON HERMAN MD Ot N30. 01 ACUTE CYSTITIS WITH HEMATURIA 06/03/2019 MADYSON HERMAN MD Ot R11. 14 BILIOUS VOMITING 06/03/2019 MADYSON HERMAN MD Ot T40.2X5A ADVERSE EFFECT OF OTHER OPIOIDS, INITIAL 06/03/2019 MADYSON HERMAN MD Ot Z96.641 PRESENCE OF RIGHT ARTIFICIAL HIP JOINT 06/04/2019 MADYSON HERMAN MD Ot E03. 9 HYPOTHYROIDISM, UNSPECIFIED 06/04/2019 MADYSON HERMAN MD Ot I12. 9 HYPERTENSIVE CHRONIC KIDNEY DISEASE W ST 06/04/2019 MADYSON HERMAN MD Ot K42. 9 UMBILICAL HERNIA WITHOUT OBSTRUCTION OR 06/04/2019 MADYSON HERMAN MD Ot K52. 9 NONINFECTIVE GASTROENTERITIS AND COLITIS 06/04/2019 MADYSON HERMAN MD Ot K56. 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 09 OTHER CONSTIPATION 06/04/2019 MADYSON HERMAN MD Ot M54. 9 DORSALGIA, UNSPECIFIED 06/04/2019 MADYSON HERMAN MD Ot M79.604 PAIN IN RIGHT LEG 06/04/2019 MADYSON HERMAN MD Ot N17. 9 ACUTE KIDNEY FAILURE, UNSPECIFIED 06/04/2019 MADYSON HERMAN MD Ot N18. 9 CHRONIC KIDNEY DISEASE, UNSPECIFIED 06/04/2019 MADYSON HERMAN MD Ot N30. 01 ACUTE CYSTITIS WITH HEMATURIA 06/04/2019 MADYSON HERMAN MD Ot R11. 14 BILIOUS VOMITING 06/04/2019 MADYSON HERMAN MD Ot T40.2X5A ADVERSE EFFECT OF OTHER OPIOIDS, INITIAL 06/04/2019 MADYSON HERMAN MD Ot Z96.641 PRESENCE OF RIGHT ARTIFICIAL HIP JOINT 06/04/2019 MADYSON HERMAN MD Ot E03. 9 HYPOTHYROIDISM, UNSPECIFIED 06/04/2019 MADYSON HERMAN MD Ot I12. 9 HYPERTENSIVE CHRONIC KIDNEY DISEASE W ST 06/04/2019 MADYSON HERMAN MD, Ot K42. 9 UMBILICAL HERNIA WITHOUT OBSTRUCTION OR 06/04/2019 MADYSON HERMAN MD Ot K52. 9 NONINFECTIVE GASTROENTERITIS AND COLITIS 06/04/2019 MADYSON HERMAN MD Ot K56. 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 09 OTHER CONSTIPATION 06/04/2019 MADYSON HERMAN MD Ot M54. 9 DORSALGIA, UNSPECIFIED 06/04/2019 MADYSON HERMAN MD Ot M79.604 PAIN IN RIGHT LEG 06/04/2019 MADYSON HERMAN MD Ot N17. 9 ACUTE KIDNEY FAILURE, UNSPECIFIED 06/04/2019 MADYSON HERMAN MD Ot N18. 9 CHRONIC KIDNEY DISEASE, UNSPECIFIED 06/04/2019 MADYSON HERMAN MD Ot N30. 01 ACUTE CYSTITIS WITH HEMATURIA 06/04/2019 MADYSON HERMAN MD Ot R11. 14 BILIOUS VOMITING 06/04/2019 MADYSON HERMAN MD Ot T40.2X5A ADVERSE EFFECT OF OTHER OPIOIDS, INITIAL 06/04/2019 MADYSON HERMAN MD Ot Z96.641 PRESENCE OF RIGHT ARTIFICIAL HIP JOINT 06/05/2019 MADYSON HERMAN MD Ot E03. 9 HYPOTHYROIDISM, UNSPECIFIED 06/05/2019 MADYSON HERMAN MD Ot I12. 9 HYPERTENSIVE CHRONIC KIDNEY DISEASE W ST 06/05/2019 MADYSON HERMAN MD Ot K42. 9 UMBILICAL HERNIA WITHOUT OBSTRUCTION OR 06/05/2019 MADYSON HERMAN MD Ot K52. 9 NONINFECTIVE GASTROENTERITIS AND COLITIS 06/05/2019 MADYSON HERMAN MD Ot K56. 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 09 OTHER CONSTIPATION 06/05/2019 MADYSON HERMAN MD Ot M54. 9 DORSALGIA, UNSPECIFIED 06/05/2019 MADYSON HERMAN MD Ot M79.604 PAIN IN RIGHT LEG 06/05/2019 MADYSON HERMAN MD Ot N17. 9 ACUTE KIDNEY FAILURE, UNSPECIFIED 06/05/2019 MADYSON HERMAN MD Ot N18. 9 CHRONIC KIDNEY DISEASE, UNSPECIFIED 06/05/2019 MADYSON HERMAN MD Ot N30. 01 ACUTE CYSTITIS WITH HEMATURIA 06/05/2019 MADYSON HERMAN MD Ot R11. 14 BILIOUS VOMITING 06/05/2019 MADYSON HERMAN MD Ot T40.2X5A ADVERSE EFFECT OF OTHER OPIOIDS, INITIAL 06/05/2019 MADYSON HERMAN MD Ot Z96.641 PRESENCE OF RIGHT ARTIFICIAL HIP JOINT 06/05/2019 MADYSON HERMAN MD Ot E03. 9 HYPOTHYROIDISM, UNSPECIFIED 06/05/2019 MADYSON HERMAN MD Ot I12. 9 HYPERTENSIVE CHRONIC KIDNEY DISEASE W ST 06/05/2019 MADYSON HERMAN MD Ot K42. 9 UMBILICAL HERNIA WITHOUT OBSTRUCTION OR 06/05/2019 MADYSON HERMAN MD Ot K52. 9 NONINFECTIVE GASTROENTERITIS AND COLITIS 06/05/2019 MADYSON HERMAN MD Ot K56. 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 09 OTHER CONSTIPATION 06/05/2019 MADYSON HERMAN MD Ot M54. 9 DORSALGIA, UNSPECIFIED 06/05/2019 MADYSON HERMAN MD Ot M79.604 PAIN IN RIGHT LEG 06/05/2019 MADYSON HERMAN MD Ot N17. 9 ACUTE KIDNEY FAILURE, UNSPECIFIED 06/05/2019 MADYSON HERMAN MD Ot N18. 9 CHRONIC KIDNEY DISEASE, UNSPECIFIED 06/05/2019 MADYSON HERMAN MD Ot N30. 01 ACUTE CYSTITIS WITH HEMATURIA 06/05/2019 MADYSON HERMAN MD Ot R11. 14 BILIOUS VOMITING 06/05/2019 MADYSON HERMAN MD Ot T40.2X5A ADVERSE EFFECT OF OTHER OPIOIDS, INITIAL 06/05/2019 MADYSON HERMAN MD Ot Z96.641 PRESENCE OF RIGHT ARTIFICIAL HIP JOINT 06/06/2019 MADYSON HERMAN MD Ot A41. 9 SEPSIS, UNSPECIFIED ORGANISM 06/06/2019 MADYSON HERMAN MD Ot B96. 1 KLEBSIELLA PNEUMONIAE THE CAUSE OF DI 06/06/2019 MADYSON HERMAN MD, Ot D64. 9 ANEMIA, UNSPECIFIED 06/06/2019 MADYSON HERMAN MD Ot E03. 9 HYPOTHYROIDISM, UNSPECIFIED 06/06/2019 MADYSON HERMAN MD, Ot E86. 0 DEHYDRATION 06/06/2019 MADYSON HERMAN MD, Ot E87. 2 ACIDOSIS 06/06/2019 MADYSON HERMAN MD, Ot I12. 9 HYPERTENSIVE CHRONIC KIDNEY DISEASE W ST 06/06/2019 MADYSON HERMAN MD, Ot I21. A1 MYOCARDIAL INFARCTION TYPE 2 06/06/2019 MADYSON HERMAN MD, Ot I25. 5 ISCHEMIC CARDIOMYOPATHY 06/06/2019 MADYSON HERMAN MD, Ot I48. 91 UNSPECIFIED ATRIAL FIBRILLATION 06/06/2019 MADYSON HERMAN MD, Ot I95. 9 HYPOTENSION, UNSPECIFIED 06/06/2019 MADYSON HERMAN MD, Ot J96. 01 ACUTE RESPIRATORY FAILURE WITH HYPOXIA 06/06/2019 MADYSON HERMAN MD Ot K37 UNSPECIFIED APPENDICITIS 06/06/2019 MADYSON HERMAN MD, Ot K42. 9 UMBILICAL HERNIA WITHOUT OBSTRUCTION OR 06/06/2019 MADYSON HERMAN MD, Ot K52. 9 NONINFECTIVE GASTROENTERITIS AND COLITIS 06/06/2019 MADYSON HERMAN MD, Ot K56. 50 INTESTNL ADHESIONS, UNSP TO PARTIAL V 06/06/2019 AMDYSON HERMAN MD, Ot K56. 7 ILEUS, UNSPECIFIED 06/06/2019 MADYSON HERMAN MD, Ot K57. 20 DVTRCLI OF LG INT W PERFORATION AND ABSC 06/06/2019 MADYSON HERMAN MD, Ot K59. 09 OTHER CONSTIPATION 06/06/2019 MADYSON HERMAN MD Ot M54. 9 DORSALGIA, UNSPECIFIED 06/06/2019 MADYSON HERMAN MD Ot M79.604 PAIN IN RIGHT LEG 06/06/2019 MADYSON HERMAN MD Ot N17. 9 ACUTE KIDNEY FAILURE, UNSPECIFIED 06/06/2019 MADYSON HERMAN MD, Ot N18. 3 CHRONIC KIDNEY DISEASE, STAGE 3 (MODERAT 06/06/2019 MADYSON HERMAN MD, Ot N30. 01 ACUTE CYSTITIS WITH HEMATURIA 06/06/2019 MADYSON HERMAN MD, Ot R11. 14 BILIOUS VOMITING 06/06/2019 MADYSON HERMAN MD, Ot R57. 0 CARDIOGENIC SHOCK 06/06/2019 MADYSON HERMAN MD, Ot R65. 21 SEVERE SEPSIS WITH SEPTIC SHOCK 06/06/2019 MADYSON HERMAN MD, Ot T40.2X5A ADVERSE EFFECT OF OTHER OPIOIDS, INITIAL 06/06/2019 MADYSON HERMAN MD, Ot Z66 DO NOT RESUSCITATE 06/06/2019 MADYSON HERMAN MD, Ot Z96.641 PRESENCE OF RIGHT ARTIFICIAL HIP JOINT 06/06/2019 MADYSON HERMAN MD, Ot A41. 9 SEPSIS, UNSPECIFIED ORGANISM 06/06/2019 MADYSON HERMAN MD, Ot B96. 1 KLEBSIELLA PNEUMONIAE THE CAUSE OF DI 06/06/2019 MADYSON HERMAN MD, Ot D64. 9 ANEMIA, UNSPECIFIED 06/06/2019 MADYSON HERMAN MD, Ot E03. 9 HYPOTHYROIDISM, UNSPECIFIED 06/06/2019 MADYSON HERMAN MD, Ot E46 UNSPECIFIED PROTEIN-CALORIE MALNUTRITION 06/06/2019 MADYSON HERMAN MD, Ot E86. 0 DEHYDRATION 06/06/2019 MADYSON HERMAN MD, Ot E87. 2 ACIDOSIS 06/06/2019 MADYSON HERMAN MD, Ot I12. 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 A1 MYOCARDIAL INFARCTION TYPE 2 06/06/2019 MADYSON HERMAN MD, Ot I25. 5 ISCHEMIC CARDIOMYOPATHY 06/06/2019 MADYSON HERMAN MD, Ot I48. 91 UNSPECIFIED ATRIAL FIBRILLATION 06/06/2019 MADYSON HERMAN MD, Ot I50. 23 ACUTE ON CHRONIC SYSTOLIC (CONGESTIVE) H 06/06/2019 MADYSON HERMAN MD, Ot I95. 9 HYPOTENSION, UNSPECIFIED 06/06/2019 MADYSON HERMAN MD, Ot J18. 1 LOBAR PNEUMONIA, UNSPECIFIED ORGANISM 06/06/2019 VIRGIL MD, MADYSON C Ot J96. 01 ACUTE RESPIRATORY FAILURE WITH HYPOXIA 06/06/2019 MADYSON HERMAN MD, Ot K37 UNSPECIFIED APPENDICITIS 06/06/2019 MADYSON HERMAN MD, Ot K42. 9 UMBILICAL HERNIA WITHOUT OBSTRUCTION OR 06/06/2019 MADYSON HERMAN MD, Ot K52. 9 NONINFECTIVE GASTROENTERITIS AND COLITIS 06/06/2019 MADYSON HERMAN MD, Ot K56. 50 INTESTNL ADHESIONS, UNSP TO PARTIAL V 06/06/2019 MADYSON HERMAN MD, Ot K56. 7 ILEUS, UNSPECIFIED 06/06/2019 MADYSON HERMAN MD, Ot K57. 20 DVTRCLI OF LG INT W PERFORATION AND ABSC 06/06/2019 MADYSON HERMAN MD, Ot K59. 09 OTHER CONSTIPATION 06/06/2019 MADYSON HERMAN MD, Ot M54. 9 DORSALGIA, UNSPECIFIED 06/06/2019 MADYSON HERMAN MD, Ot M79.604 PAIN IN RIGHT LEG 06/06/2019 MADYSON HERMAN MD, Ot N17. 0 ACUTE KIDNEY FAILURE WITH TUBULAR NECROS 06/06/2019 MADYSON HERMAN MD, Ot N17. 9 ACUTE KIDNEY FAILURE, UNSPECIFIED 06/06/2019 MADYSON HERMAN MD, Ot N18. 3 CHRONIC KIDNEY DISEASE, STAGE 3 (MODERAT 06/06/2019 MADYSON HERMAN MD, Ot N30. 01 ACUTE CYSTITIS WITH HEMATURIA 06/06/2019 MADYSON HERMAN MD, Ot R11. 14 BILIOUS VOMITING 06/06/2019 MADYSON HERMAN MD, Ot R57. 0 CARDIOGENIC SHOCK 06/06/2019 MADYSON HERMAN MD, Ot R65. 21 SEVERE SEPSIS WITH SEPTIC SHOCK 06/06/2019 MADYSON HERMAN MD, Ot T40.2X5A ADVERSE EFFECT OF OTHER OPIOIDS, INITIAL 06/06/2019 MADYSON HERMAN MD Ot Z23 ENCOUNTER FOR IMMUNIZATION 06/06/2019 MADYSON HERMAN MD, Ot Z66 DO NOT RESUSCITATE 06/06/2019 MADYSON HERMAN MD, Ot Z96.641 PRESENCE OF RIGHT ARTIFICIAL HIP JOINT 06/27/2019 JERRY GIFFORD, CHRISTI Brown Ot 722. 52 LUMB/LUMBOSAC DISC DEGEN 06/27/2019 ENMA JIMENEZ Ot I65.22 OCCLUSION AND STENOSIS OF LEFT CAROTID A 06/27/2019 ALEYDA DPM, LESLIE Q Ot M19.071 PRIMARY OSTEOARTHRITIS, RIGHT ANKLE AND 06/27/2019 ALEYDA DPM, LESLIE Q Ot M76. 71 PERONEAL TENDINITIS, RIGHT LEG 06/27/2019 VIRGIL GIFFORD, MADYSON C Ot R60. 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 07/19/2019 REECE LATHAM MATT Ot I48.91 UNSPECIFIED ATRIAL FIBRILLATION 07/19/2019 REECE DO MATT Ot I50.22 CHRONIC SYSTOLIC (CONGESTIVE) HEART FAIL 07/19/2019 REECE LATHAM MATT Ot K21.9 GASTRO-ESOPHAGEAL REFLUX DISEASE WITHOUT 07/19/2019 RECEE DO MATT Ot L89.89 9 PRESSURE ULCER OF OTHER SITE, UNSPECIFIE 07/19/2019 REECE LATHAM MATT Ot N17.9 ACUTE KIDNEY FAILURE, UNSPECIFIED 07/19/2019 REECE LATHAM MATT Ot N18.9 CHRONIC KIDNEY DISEASE, UNSPECIFIED 07/19/2019 REECE LATHAM MATT Ot R60.0 LOCALIZED EDEMA 07/19/2019 REECE LATHAM MATT Ot 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 52 LUMB/LUMBOSAC DISC DEGEN 08/23/2019 ENMA JIMENEZ Ot I65.22 OCCLUSION AND STENOSIS OF LEFT CAROTID A 08/23/2019 ALEYDA DPM, LESLIE Q Ot M19.071 PRIMARY OSTEOARTHRITIS, RIGHT ANKLE AND 08/23/2019 ALEYDA DPM, LESLIE Q Ot M76. 71 PERONEAL TENDINITIS, RIGHT LEG 08/23/2019 VIRGIL GIFFORD, MADYSON Ruelas Ot R60. 0 LOCALIZED EDEMA 09/09/2019 HAL DOUGLAS MD Ot E78. 2 MIXED HYPERLIPIDEMIA 09/09/2019 HAL DOUGLAS MD Ot I08. 1 RHEUMATIC DISORDERS OF BOTH MITRAL AND T 09/09/2019 HAL DOUGLAS MD Ot I10 ESSENTIAL (PRIMARY) HYPERTENSION 09/09/2019 HAL DOUGLAS MD Ot I21. 9 ACUTE MYOCARDIAL INFARCTION, UNSPECIFIED 09/09/2019 HAL DOUGLAS MD Ot I65. 29 OCCLUSION AND STENOSIS OF UNSPECIFIED CA 09/11/2019 HAL DOUGLAS MD Ot E03. 9 HYPOTHYROIDISM, UNSPECIFIED 09/11/2019 HAL DOUGLAS MD Ot E78. 2 MIXED HYPERLIPIDEMIA 09/11/2019 HAL DOUGLAS MD Ot G60. 9 HEREDITARY AND IDIOPATHIC NEUROPATHY, UN 09/11/2019 HAL DOUGLAS MD Ot I07. 1 RHEUMATIC TRICUSPID INSUFFICIENCY 09/11/2019 HAL DOUGLAS MD Ot I13. 0 HYP HRT CHR [place] DIS W HRT FAIL AND ST 09/11/2019 HAL DOUGLAS MD, Ot I21. 9 ACUTE MYOCARDIAL INFARCTION, UNSPECIFIED 09/11/2019 HAL DOUGLAS MD, Ot I25. 10 ATHSCL HEART DISEASE OF [place] CORONARY 09/11/2019 HAL DOUGLAS MD Ot I47. 1 SUPRAVENTRICULAR TACHYCARDIA 09/11/2019 HAL DOUGLAS MD Ot I48. 91 UNSPECIFIED ATRIAL FIBRILLATION 09/11/2019 HAL DOUGLAS MD Ot I50. 22 CHRONIC SYSTOLIC (CONGESTIVE) HEART FAIL 09/11/2019 HAL DOUGLAS MD, Ot I65. 29 OCCLUSION AND STENOSIS OF UNSPECIFIED CA 09/11/2019 HAL DOUGLAS MD, Ot M19. 90 UNSPECIFIED OSTEOARTHRITIS, UNSPECIFIED 09/11/2019 HAL DOUGLAS MD, Ot M48.061 SPINAL STENOSIS, LUMBAR REGION WITHOUT N 09/11/2019 HAL DOUGLAS MD Ot M51. 16 INTERVERTEBRAL DISC DISORDERS W RADICULO 09/11/2019 HAL DOUGLAS MD Ot N18. 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 3 FAMILY HISTORY OF MALIGNANT NEOPLASM OF 09/11/2019 HAL DOUGLAS MD Ot Z80. 8 FAMILY HISTORY OF MALIGNANT NEOPLASM OF 09/11/2019 HAL DOUGLAS MD Ot Z82. 49 FAMILY HX OF ISCHEM HEART DIS AND OTH DI 09/11/2019 HAL DOUGLAS MD Ot Z83. 3 FAMILY HISTORY OF DIABETES MELLITUS 09/11/2019 HAL DOUGLAS MD, Ot Z88. 2 ALLERGY STATUS TO SULFONAMIDES STATUS 09/13/2019 HAL DOUGLAS MD Ot E03. 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 9 HEREDITARY AND IDIOPATHIC NEUROPATHY, UN 09/13/2019 HAL DOUGLAS MD Ot I07. 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 9 ACUTE MYOCARDIAL INFARCTION, UNSPECIFIED 09/13/2019 HAL DOUGLAS MD Ot I25. 10 ATHSCL HEART DISEASE OF [place] CORONARY 09/13/2019 HAL DOUGLAS MD Ot I47. 1 SUPRAVENTRICULAR TACHYCARDIA 09/13/2019 HAL DOUGLAS MD Ot I48. 91 UNSPECIFIED ATRIAL FIBRILLATION 09/13/2019 HAL DOUGLAS MD Ot I50. 22 CHRONIC SYSTOLIC (CONGESTIVE) HEART FAIL 09/13/2019 HAL DOUGLAS MD Ot I65. 29 OCCLUSION AND STENOSIS OF UNSPECIFIED CA 09/13/2019 HAL DOUGLAS MD Ot M19. 90 UNSPECIFIED OSTEOARTHRITIS, UNSPECIFIED 09/13/2019 HAL DOUGLAS MD Ot M48.061 SPINAL STENOSIS, LUMBAR REGION WITHOUT N 09/13/2019 HAL DOUGLAS MD Ot M51. 16 INTERVERTEBRAL DISC DISORDERS W RADICULO 09/13/2019 HAL DOUGLAS MD Ot N18. 9 CHRONIC KIDNEY DISEASE, UNSPECIFIED 09/13/2019 HAL DOUGLAS MD Ot Z79. 82 INTERMEDIATE (CURRENT) USE OF ASPIRIN 09/13/2019 HAL DOUGLAS MD Ot Z79.891 INTERMEDIATE (CURRENT) USE OF OPIATE ANALGE 09/13/2019 HAL DOUGLAS MD, Ot Z79.899 OTHER INTERMEDIATE (CURRENT) DRUG THERAPY 09/13/2019 HAL DOUGLAS MD, Ot Z80. 3 FAMILY HISTORY OF MALIGNANT NEOPLASM OF 09/13/2019 HAL DOUGLAS MD Ot Z80. 8 FAMILY HISTORY OF MALIGNANT NEOPLASM OF 09/13/2019 HAL DOUGLAS MD Ot Z82. 49 FAMILY HX OF ISCHEM HEART DIS AND OTH DI 09/13/2019 HAL DOUGLAS MD Ot Z83. 3 FAMILY HISTORY OF DIABETES MELLITUS 09/13/2019 HAL DOUGLAS MD, Ot Z88. 2 ALLERGY STATUS TO SULFONAMIDES STATUS 09/17/2019 HAL DOUGLAS MD Ot E03. 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 9 HEREDITARY AND IDIOPATHIC NEUROPATHY, UN 09/17/2019 HAL DOUGLAS MD Ot I07. 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 9 ACUTE MYOCARDIAL INFARCTION, UNSPECIFIED 09/17/2019 HAL DOUGLAS MD Ot I25. 10 ATHSCL HEART DISEASE OF [place] CORONARY 09/17/2019 HAL DOUGLAS MD Ot I47. 1 SUPRAVENTRICULAR TACHYCARDIA 09/17/2019 HAL DOUGLAS MD Ot I48. 91 UNSPECIFIED ATRIAL FIBRILLATION 09/17/2019 HAL DOUGLAS MD Ot I50. 22 CHRONIC SYSTOLIC (CONGESTIVE) HEART FAIL 09/17/2019 HAL DOUGLAS MD Ot I65. 29 OCCLUSION AND STENOSIS OF UNSPECIFIED CA 09/17/2019 HAL DOUGLAS MD Ot M19. 90 UNSPECIFIED OSTEOARTHRITIS, UNSPECIFIED 09/17/2019 HAL DOUGLAS MD Ot M48.061 SPINAL STENOSIS, LUMBAR REGION WITHOUT N 09/17/2019 HAL DOUGLAS MD, Ot M51. 16 INTERVERTEBRAL DISC DISORDERS W RADICULO 09/17/2019 HAL DOUGLAS MD Ot N18. 9 CHRONIC KIDNEY DISEASE, UNSPECIFIED 09/17/2019 HAL DOUGLAS MD, Ot Z79. 82 INTERMEDIATE (CURRENT) USE OF ASPIRIN 09/17/2019 HAL DOUGLAS MD, Ot Z79.891 INTERMEDIATE (CURRENT) USE OF OPIATE ANALGE 09/17/2019 HAL DOUGLAS MD, Ot Z79.899 OTHER INTERMEDIATE (CURRENT) DRUG THERAPY 09/17/2019 HAL DOUGLAS MD, Ot Z80. 3 FAMILY HISTORY OF MALIGNANT NEOPLASM OF 09/17/2019 HAL DOUGLAS MD, Ot Z80. 8 FAMILY HISTORY OF MALIGNANT NEOPLASM OF 09/17/2019 HAL DOUGLAS MD, Ot Z82. 49 FAMILY HX OF ISCHEM HEART DIS AND OTH DI 09/17/2019 HAL DOUGLAS MD, Ot Z83. 3 FAMILY HISTORY OF DIABETES MELLITUS 09/17/2019 HAL DOUGLAS MD, Ot Z88. 2 ALLERGY STATUS TO SULFONAMIDES STATUS 09/18/2019 HAL DOUGLAS MD Ot E03. 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 9 HEREDITARY AND IDIOPATHIC NEUROPATHY, UN 09/18/2019 HAL DOUGLAS MD Ot I07. 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 9 ACUTE MYOCARDIAL INFARCTION, UNSPECIFIED 09/18/2019 HAL DOUGLAS MD Ot I25. 10 ATHSCL HEART DISEASE OF [place] CORONARY 09/18/2019 HAL DOUGLAS MD Ot I47. 1 SUPRAVENTRICULAR TACHYCARDIA 09/18/2019 HAL DOUGLAS MD, Ot I48. 91 UNSPECIFIED ATRIAL FIBRILLATION 09/18/2019 HAL DOUGLAS MD, Ot I50. 22 CHRONIC SYSTOLIC (CONGESTIVE) HEART FAIL 09/18/2019 HAL DOUGLAS MD, Ot I65. 29 OCCLUSION AND STENOSIS OF UNSPECIFIED CA 09/18/2019 HAL DOUGLAS MD, Ot M19. 90 UNSPECIFIED OSTEOARTHRITIS, UNSPECIFIED 09/18/2019 HAL DOUGLAS MD, Ot M48.061 SPINAL STENOSIS, LUMBAR REGION WITHOUT N 09/18/2019 HAL DOUGLAS MD, Ot M51. 16 INTERVERTEBRAL DISC DISORDERS W RADICULO 09/18/2019 HAL DOUGLAS MD, Ot N18. 9 CHRONIC KIDNEY DISEASE, UNSPECIFIED 09/18/2019 HAL DOUGLAS MD, Ot Z79. 82 INTERMEDIATE (CURRENT) USE OF ASPIRIN 09/18/2019 HAL DOUGLAS MD, Ot Z79.891 INTERMEDIATE (CURRENT) USE OF OPIATE ANALGE 09/18/2019 HAL DOUGLAS MD, Ot Z79.899 OTHER INTERMEDIATE (CURRENT) DRUG THERAPY 09/18/2019 HAL DOUGLAS MD, Ot Z80. 3 FAMILY HISTORY OF MALIGNANT NEOPLASM OF 09/18/2019 HAL DOUGLAS MD, Ot Z80. 8 FAMILY HISTORY OF MALIGNANT NEOPLASM OF 09/18/2019 HAL DOUGLAS MD, Ot Z82. 49 FAMILY HX OF ISCHEM HEART DIS AND OTH DI 09/18/2019 HAL DOUGLAS MD, Ot Z83. 3 FAMILY HISTORY OF DIABETES MELLITUS 09/18/2019 HAL DOUGLAS MD, Ot Z88. 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 2 MIXED HYPERLIPIDEMIA 09/26/2019 HAL DOUGLAS MD Ot I08. 1 RHEUMATIC DISORDERS OF BOTH MITRAL AND T 09/26/2019 HAL DOUGLAS MD Ot I10 ESSENTIAL (PRIMARY) HYPERTENSION 09/26/2019 HAL DOUGLAS MD Ot I21. 9 ACUTE MYOCARDIAL INFARCTION, UNSPECIFIED 09/26/2019 HAL DOUGLAS MD Ot I65. 29 OCCLUSION AND STENOSIS OF UNSPECIFIED CA 10/04/2019 CHRISTI EDWARDS MD Ot 722. 52 LUMB/LUMBOSAC DISC DEGEN 10/04/2019 ENMA JIMENEZ Ot I65.22 OCCLUSION AND STENOSIS OF LEFT CAROTID A 10/04/2019 ALEYDA DPM, LESLIE Q Ot M19.071 PRIMARY OSTEOARTHRITIS, RIGHT ANKLE AND 10/04/2019 ALEYDA DPM, LESLIE Q Ot M76. 71 PERONEAL TENDINITIS, RIGHT LEG 10/04/2019 MADYSON HERMAN MD Ot R60. 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 2 MIXED HYPERLIPIDEMIA 10/04/2019 HAL DOUGLAS MD, Ot I08. 1 RHEUMATIC DISORDERS OF BOTH MITRAL AND T 10/04/2019 HAL DOUGLAS MD Ot I10 ESSENTIAL (PRIMARY) HYPERTENSION 10/04/2019 HAL DOUGLAS MD Ot I21. 9 ACUTE MYOCARDIAL INFARCTION, UNSPECIFIED 10/04/2019 HAL DOUGLAS MD Ot I65. 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 10/22/2019 BLAINE AGUDELO MD Ot E03.9 HYPOTHYROIDISM, UNSPECIFIED 10/22/2019 BLAINE AGUDELO MD Ot E78.2 MIXED HYPERLIPIDEMIA 10/22/2019 BLAINE AGUDELO MD Ot I10 ESSENTIAL (PRIMARY) HYPERTENSION 10/22/2019 BLAINE AGUDELO MD Ot J90 PLEURAL EFFUSION, NOT ELSEWHERE CLASSIFI 10/22/2019 BLAINE AGUDELO MD Ot R60.1 GENERALIZED EDEMA 10/22/2019 BLAINE AGUDELO MD Ot Z98.890 OTHER SPECIFIED POSTPROCEDURAL STATES 12/04/2019 BLAINE AGUDELO MD Ot 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 12/04/2019 BLAINE AGUDELO MD Ot E03.9 HYPOTHYROIDISM, UNSPECIFIED 12/04/2019 BLAINE AGUDELO MD Ot E78.2 MIXED HYPERLIPIDEMIA 12/04/2019 BLAINE AGUDELO MD Ot I10 ESSENTIAL (PRIMARY) HYPERTENSION 12/04/2019 BLAINE AGUDELO MD Ot J90 PLEURAL EFFUSION, NOT ELSEWHERE CLASSIFI 12/04/2019 BLAINE AGUDELO MD Ot R60.1 GENERALIZED EDEMA 12/04/2019 BLAINE AGUDELO MD Ot Z98.890 OTHER SPECIFIED POSTPROCEDURAL STATES 12/05/2019 BLAINE AGUDELO MD Ot 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 12/05/2019 BLAINE AGUDELO MD Ot E03.9 HYPOTHYROIDISM, UNSPECIFIED 12/05/2019 BLAINE AGUDELO MD Ot E78.2 MIXED HYPERLIPIDEMIA 12/05/2019 BLAINE AGUDELO MD Ot I10 ESSENTIAL (PRIMARY) HYPERTENSION 12/05/2019 BLAINE AGUDELO MD Ot J90 PLEURAL EFFUSION, NOT ELSEWHERE CLASSIFI 12/05/2019 BLAINE AGUDELO MD Ot R60.1 GENERALIZED EDEMA 12/05/2019 BLAINE AGUDELO MD Ot Z98.890 OTHER SPECIFIED POSTPROCEDURAL STATES 12/19/2019 MADYSON HERMAN MD C Ot M48.061 SPINAL STENOSIS, LUMBAR REGION WITHOUT N 01/07/2020 MADYSON HERMAN MD C Ot M48.061 SPINAL STENOSIS, LUMBAR REGION WITHOUT N 01/09/2020 MADYSON HERMAN MD C Ot M48.061 SPINAL STENOSIS, LUMBAR REGION WITHOUT N 01/13/2020 MADYSON HERMAN MD C Ot I10 ESSENTIAL (PRIMARY) HYPERTENSION 01/13/2020 MADYSON HERMAN MD C Ot M48.061 SPINAL STENOSIS, LUMBAR REGION WITHOUT N 01/23/2020 MADYSON HERMAN MD Ot I10 ESSENTIAL (PRIMARY) HYPERTENSION 01/23/2020 MADYSON HERMAN MD Ot M48.061 SPINAL STENOSIS, LUMBAR REGION WITHOUT N 01/23/2020 MADYSON HEMRAN MD Ot I10 ESSENTIAL (PRIMARY) HYPERTENSION 01/23/2020 MADYSON HERMAN MD Ot M48.061 SPINAL STENOSIS, LUMBAR REGION WITHOUT N 02/11/2020 Ot C18.1 JORGE GNANT NEOPLASM OF APPENDIX 02/11/2020 Ot E03.9 HYPO THYROIDISM, UNSPECIFIED 02/11/2020 Ot E78.2 MIXE D HYPERLIPIDEMIA 02/11/2020 Ot I10 ESSENT IAL (PRIMARY) HYPERTENSION 02/11/2020 Ot J90 PLEURA L EFFUSION, NOT ELSEWHERE CLASSIFI 02/11/2020 Ot R60.1 GENE RALIZED EDEMA 02/11/2020 Ot Z98.890 OT HER SPECIFIED POSTPROCEDURAL STATES 02/11/2020 MADYSON HERMAN MD Ot I10 ESSENTIAL (PRIMARY) HYPERTENSION 02/11/2020 MADYSON HERMAN MD Ot M48.061 SPINAL STENOSIS, LUMBAR REGION WITHOUT N 02/14/2020 Ot C18.1 JORGE GNANT NEOPLASM OF APPENDIX 02/14/2020 Ot E03.9 HYPO THYROIDISM, UNSPECIFIED 02/14/2020 Ot E78.2 MIXE D HYPERLIPIDEMIA 02/14/2020 Ot I10 ESSENT IAL (PRIMARY) HYPERTENSION 02/14/2020 Ot J90 PLEURA L EFFUSION, NOT ELSEWHERE CLASSIFI 02/14/2020 Ot R60.1 GENE RALIZED EDEMA 02/14/2020 Ot Z98.890 OT HER SPECIFIED POSTPROCEDURAL STATES 02/14/2020 MADYSON HERMAN MD Ot I10 ESSENTIAL (PRIMARY) HYPERTENSION 02/14/2020 MADYSON HERMAN MD Ot M48.061 SPINAL STENOSIS, LUMBAR REGION WITHOUT N Procedures Code Description Performed By Per formed On [id number] BY PASS SIGMOID COLON TO CUTANEOUS, OPEN 05/30/2019 [id number] EX CISION OF SIGMOID COLON, OPEN APPROACH 05/30/2019 [id number] RE LEASE SMALL INTESTINE, OPEN APPROACH 05/30/2019 [id number] RE SECTION OF APPENDIX, OPEN APPROACH 05/30/2019 [id number] RE SPIRATORY VENTILATION, 24- 96 CONSECUTI 05/30/2019 Results Test Result Range Complete blood count (CBC) with automate d white blood cell (WBC) differential - 05/27/19 11:30 Blood leukocytes automated count (number/volume) 22.7 10*3/uL 4.3-11.0 Blood erythrocytes automated count (number/volume) 3.84 10*6/uL 4.35-5.85 Venous blood hemoglobin measurement (mass/volume) 11.7 g/dL 11.5-16.0 Blood hematocrit (volume fraction) 36 % 35-52 Automated erythrocyte mean corpuscular volume 94 [ foz_us] 80-99 Automated erythrocyte mean corpuscular h emoglobin (mass per erythrocyte) 30 pg 25-34 Automated erythrocyte mean corpuscular h emoglobin concentration measurement (mass/volume) 33 g/dL 32-36 Automated erythrocyte distribution width ratio 13. 8 % 10.0- 14.5 Automated blood platelet count (count/volume) 298 10*3/uL 130-400 Automated blood platelet mean volume measurement 10.8 [foz_us] 7.4-10.4 Automated blood neutrophils/100 leukocytes 85 % 42-75 Automated blood lymphocytes/100 leukocytes 10 % 12-44 Blood monocytes/100 leukocytes 4 % 0-12 Automated blood eosinophils/100 leukocytes 0 % 0-10 Automated blood basophils/100 leukocytes 0 % 0-10 Blood neutrophils automated count (number/volume) 19.3 10*3 1.8-7.8 Blood lymphocytes automated count (number/volume) 2.4 10*3 1.0-4.0 Blood monocytes automated count (number/volume) 0. 9 10*3 0.0-1.0 Automated eosinophil count 0.0 10*3/uL 0 .0-0.3 Automated blood basophil count (count/volume) 0.0 10*3/uL 0.0-0.1 Manual absolute plasma cell count - 04/30 11:30 Blood monocytes/100 leukocytes 3 % NRG Manual blood segmented neutrophils/100 leukocytes 85 % NRG Blood band neutrophils/100 leukocytes 0 % NRG Manual blood lymphocytes/100 leukocytes 12 % NRG Manual eosinophils/100 leukocytes in nose 0 % NRG Manual blood basophils/100 leukocytes 0 % NRG Blood erythrocyte morphology finding identification NORMAL NRG PT panel in platelet poor plasma by coag ulation assay - 05/27/19 11:30 Prothrombin time (PT) in platelet poor plasma by coagu lation assay 16.3 s 12.2-14.7 INR in platelet poor plasma or blood by coagulation as say 1.3 0.8-1.4 Activated partial thromboplastin time (a PTT) in platelet poor plasma bycoagulation assay - 05/27/19 11:30 Activated partial thromboplastin time (a PTT) in platelet poor plasma bycoagulation assay 27 s 24-35 Comprehensive metabolic panel - 05/27/19 11:30 Serum or plasma sodium measurement (moles/volume) 138 mmol/L 135-145 Serum or plasma potassium measurement (moles/volume) 3.6 mmol/L 3.6-5.0 Serum or plasma chloride measurement (moles/volume) 103 mmol/L 98-107 Carbon dioxide 23 mmol/L 21-32 Serum or plasma anion gap determination (moles/volume) 12 mmol/L 5-14 Serum or plasma urea nitrogen measurement (mass/volume ) 32 mg/dL 7-18 Serum or plasma creatinine measurement (mass/volume) 1.44 mg/dL 0.60-1.30 Serum or plasma urea nitrogen/creatinine mass ratio 22 NRG Serum or plasma creatinine measurement w ith calculation of estimated glomerular filtration rate 35 NRG Serum or plasma glucose measurement (mass/volume) 153 mg/dL 70-105 Serum or plasma calcium measurement (mass/volume) 9.4 mg/dL 8.5-10.1 Serum or plasma total bilirubin measurement (mass/volu me) 0.9 mg/dL 0.1-1.0 Serum or plasma alkaline phosphatase ca surement (enzymatic activity/volume) 131 U/L 40-136 Serum or plasma aspartate aminotransfera se measurement (enzymatic activity/volume) 13 U/L 5-34 Serum or plasma alanine aminotransferase measurement (enzymatic activity/volume) 16 U/L 0-55 Serum or plasma protein measurement (mass/volume) 7.2 g/dL 6.4-8.2 Serum or plasma albumin measurement (mass/volume) 3.8 g/dL 3.2-4.5 CALCIUM CORRECTED 9.6 mg/dL 8.5-10.1 Serum or plasma amylase measurement (enz ymatic activity/volume) - 05/27/19 11:30 Serum or plasma amylase measurement (enzymatic activit y/volume) 15 U/L 25-125 Lipase - 05/27/19 11:30 Lipase 7 U/L 8-78 Erythrocyte sedimentation rate by hakeem gren method - 05/27/19 11:30 Erythrocyte sedimentation rate by westergren method 32 mm 0- 30 Serum or plasma C reactive protein measu rement (mass/volume) - 05/27/19 11:30 Serum or plasma C reactive protein measurement (mass/v olume) 11.76 mg/dL 0.00-0.50 Complete urinalysis with reflex to cultu re - 05/27/19 12:50 Urine color determination YELLOW NRG Urine clarity determination CLEAR NR G Urine pH measurement by test strip 5 5-9 Specific gravity of urine by test strip 1.020 1.016-1.022 Urine protein assay by test strip, semi-quantitative 3+ NEGATIVE Urine glucose detection by automated test strip NE GATIVE NEGATIVE Erythrocytes detection in urine sediment by light micr oscopy NEGATIVE NEGATIVE Urine ketones detection by automated test strip 1+ NEGATIVE Urine nitrite detection by test strip POSITIVE NEGATIVE Urine total bilirubin detection by test strip NEGA TIVE NEGATIVE Urine urobilinogen measurement by automated test strip (mass/volume) 1 mg/dL NORMAL Urine leukocyte esterase detection by dipstick 1+ NEGATIVE Automated urine sediment erythrocyte cou nt by microscopy (number/high power field) NONE NRG Automated urine sediment leukocyte count by microscopy (number/high power field) [HPF] NRG Bacteria detection in urine sediment by light microsco py LARGE NRG Squamous epithelial cells detection in u rine sediment by light microscopy NONE NRG Crystals detection in urine sediment by light microsco py NONE NRG Casts detection in urine sediment by light microscopy NONE NRG Mucus detection in urine sediment by light microscopy NEGATIVE NRG Complete urinalysis with reflex to culture YES NRG Bacterial urine culture - 05/27/19 12:50 Bacterial urine culture [id number] NRG COLONY COUNT >100,000/ML NRG FTX;REPORTABLE SUSCEPTIBILITY REPORTED 05-30-19 NRG FREE TEXT ENTRY 2 MUCOID COLONY TYPE NR G Dirithromycin susceptibility test by dis k diffusion - 05/27/19 12:50 Gentamicin susceptibility test by minimum inhibitory c oncentration <= NRG Trimethoprim/sulfamethoxazole susceptibi lity test by minimum inhibitoryconcentration <= NRG Levofloxacin susceptibility test by minimum inhibitory concentration <= NRG Ampicillin susceptibility test by minimum inhibitory c oncentration > NRG Cefazolin susceptibility test by minimum inhibitory co ncentration <= NRG Ceftriaxone susceptibility test by minimum inhibitory concentration <= NRG Ciprofloxacin susceptibility test by minimum inhibitor y concentration <= NRG Meropenem susceptibility test by minimum inhibitory co ncentration <= NRG Nitrofurantoin susceptibility test by mi nimum inhibitory concentration 64 NRG Amoxicillin and clavulanate potassium susc FRANKLIN <= NRG Dirithromycin susceptibility test by dis k diffusion - 05/27/19 12:50 Gentamicin susceptibility test by minimum inhibitory c oncentration <= NRG Trimethoprim/sulfamethoxazole susceptibi lity test by minimum inhibitoryconcentration <= NRG Levofloxacin susceptibility test by minimum inhibitory concentration <= NRG Ampicillin susceptibility test by minimum inhibitory c oncentration > NRG Cefazolin susceptibility test by minimum inhibitory co ncentration 2 NRG Ceftriaxone susceptibility test by minimum inhibitory concentration <= NRG Ciprofloxacin susceptibility test by minimum inhibitor y concentration <= NRG Meropenem susceptibility test by minimum inhibitory co ncentration <= NRG Nitrofurantoin susceptibility test by mi nimum inhibitory concentration 32 NRG Amoxicillin and clavulanate potassium susc FRANKLIN <= NRG Blood lactic acid measurement (moles/vol ume) - 05/27/19 12:55 Blood lactic acid measurement (moles/volume) 1.46 mmol/L 0.50-2.00 Bacterial blood culture - 05/27/19 12:55 Bacterial blood culture NG NRG Bacterial blood culture - 05/27/19 13:29 Bacterial blood culture NG NRG Complete blood count (CBC) with automate d white blood cell (WBC) differential - 05/28/19 05:38 Blood leukocytes automated count (number/volume) 28.9 10*3/uL 4.3-11.0 Blood erythrocytes automated count (number/volume) 3.45 10*6/uL 4.35-5.85 Venous blood hemoglobin measurement (mass/volume) 10.5 g/dL 11.5-16.0 Blood hematocrit (volume fraction) 33 % 35-52 Automated erythrocyte mean corpuscular volume 95 [ foz_us] 80-99 Automated erythrocyte mean corpuscular h emoglobin (mass per erythrocyte) 30 pg 25-34 Automated erythrocyte mean corpuscular h emoglobin concentration measurement (mass/volume) 32 g/dL 32-36 Automated erythrocyte distribution width ratio 13. 8 % 10.0- 14.5 Automated blood platelet count (count/volume) 232 10*3/uL 130-400 Automated blood platelet mean volume measurement 11.6 [foz_us] 7.4-10.4 Automated blood neutrophils/100 leukocytes 89 % 42-75 Automated blood lymphocytes/100 leukocytes 5 % 12-44 Blood monocytes/100 leukocytes 6 % 0-12 Automated blood eosinophils/100 leukocytes 0 % 0-10 Automated blood basophils/100 leukocytes 0 % 0-10 Blood neutrophils automated count (number/volume) 25.8 10*3 1.8-7.8 Blood lymphocytes automated count (number/volume) 1.3 10*3 1.0-4.0 Blood monocytes automated count (number/volume) 1. 8 10*3 0.0-1.0 Automated eosinophil count 0.0 10*3/uL 0 .0-0.3 Automated blood basophil count (count/volume) 0.0 10*3/uL 0.0-0.1 Comprehensive metabolic panel - 05/28/19 05:38 Serum or plasma sodium measurement (moles/volume) 138 mmol/L 135-145 Serum or plasma potassium measurement (moles/volume) 4.4 mmol/L 3.6-5.0 Serum or plasma chloride measurement (moles/volume) 109 mmol/L 98-107 Carbon dioxide 19 mmol/L 21-32 Serum or plasma anion gap determination (moles/volume) 10 mmol/L 5-14 Serum or plasma urea nitrogen measurement (mass/volume ) 29 mg/dL 7-18 Serum or plasma creatinine measurement (mass/volume) 1.40 mg/dL 0.60-1.30 Serum or plasma urea nitrogen/creatinine mass ratio 21 NRG Serum or plasma creatinine measurement w ith calculation of estimated glomerular filtration rate 36 NRG Serum or plasma glucose measurement (mass/volume) 122 mg/dL 70-105 Serum or plasma calcium measurement (mass/volume) 8.2 mg/dL 8.5-10.1 Serum or plasma total bilirubin measurement (mass/volu me) 0.8 mg/dL 0.1-1.0 Serum or plasma alkaline phosphatase ca surement (enzymatic activity/volume) 132 U/L 40-136 Serum or plasma aspartate aminotransfera se measurement (enzymatic activity/volume) 13 U/L 5-34 Serum or plasma alanine aminotransferase measurement (enzymatic activity/volume) 11 U/L 0-55 Serum or plasma protein measurement (mass/volume) 5.2 g/dL 6.4-8.2 Serum or plasma albumin measurement (mass/volume) 3.0 g/dL 3.2-4.5 CALCIUM CORRECTED 9.0 mg/dL 8.5-10.1 Blood CBC with ordered manual differenti al panel - 05/29/19 08:02 Blood leukocytes automated count (number/volume) 23.6 10*3/uL 4.3-11.0 Blood erythrocytes automated count (number/volume) 3.20 10*6/uL 4.35-5.85 Venous blood hemoglobin measurement (mass/volume) 9.8 g/dL 11.5-16.0 Blood hematocrit (volume fraction) 30 % 35-52 Automated erythrocyte mean corpuscular volume 94 [ foz_us] 80-99 Automated erythrocyte mean corpuscular h emoglobin (mass per erythrocyte) 31 pg 25-34 Automated erythrocyte mean corpuscular h emoglobin concentration measurement (mass/volume) 33 g/dL 32-36 Automated erythrocyte distribution width ratio 14. 1 % 10.0- 14.5 Automated blood platelet count (count/volume) 247 10*3/uL 130-400 Automated blood platelet mean volume measurement 11.4 [foz_us] 7.4-10.4 Automated blood neutrophils/100 leukocytes 90 % 42-75 Automated blood lymphocytes/100 leukocytes 5 % 12-44 Blood monocytes/100 leukocytes 2 % NRG Automated blood eosinophils/100 leukocytes 0 % 0-10 Automated blood basophils/100 leukocytes 0 % 0-10 Blood neutrophils automated count (number/volume) 21.1 10*3 1.8-7.8 Blood lymphocytes automated count (number/volume) 1.1 10*3 1.0-4.0 Blood monocytes automated count (number/volume) 1. 4 10*3 0.0-1.0 Automated eosinophil count 0.0 10*3/uL 0 .0-0.3 Automated blood basophil count (count/volume) 0.0 10*3/uL 0.0-0.1 Manual blood segmented neutrophils/100 leukocytes 90 % NRG Blood band neutrophils/100 leukocytes 4 % NRG Manual blood lymphocytes/100 leukocytes 4 % NRG Manual eosinophils/100 leukocytes in nose 0 % NRG Manual blood basophils/100 leukocytes 0 % NRG Blood erythrocyte morphology finding identification NORMAL NRG Blood toxic granules detection by light microscopy 1+ NRG Serum or plasma renal function panel (Na , K, Cl, CO2, BUN, Cr, glucose,Ca, phos, alb) - 05/29/19 08:02 Serum or plasma sodium measurement (moles/volume) 142 mmol/L 135-145 Serum or plasma potassium measurement (moles/volume) 3.6 mmol/L 3.6-5.0 Serum or plasma chloride measurement (moles/volume) 111 mmol/L 98-107 Carbon dioxide 18 mmol/L 21-32 Serum or plasma anion gap determination (moles/volume) 13 mmol/L 5-14 Serum or plasma urea nitrogen measurement (mass/volume ) 33 mg/dL 7-18 Serum or plasma creatinine measurement (mass/volume) 1.27 mg/dL 0.60-1.30 Serum or plasma urea nitrogen/creatinine mass ratio 26 NRG Serum or plasma creatinine measurement w ith calculation of estimated glomerular filtration rate 40 NRG Serum or plasma glucose measurement (mass/volume) 117 mg/dL 70-105 Serum or plasma calcium measurement (mass/volume) 8.5 mg/dL 8.5-10.1 Serum or plasma albumin measurement (mass/volume) 2.9 g/dL 3.2-4.5 Serum or plasma phosphate measurement (mass/volume) 2.7 mg/dL 2.3-4.7 Complete blood count (CBC) with automate d white blood cell (WBC) differential - 05/30/19 05:40 Blood leukocytes automated count (number/volume) 20.7 10*3/uL 4.3-11.0 Blood erythrocytes automated count (number/volume) 3.23 10*6/uL 4.35-5.85 Venous blood hemoglobin measurement (mass/volume) 9.8 g/dL 11.5-16.0 Blood hematocrit (volume fraction) 31 % 35-52 Automated erythrocyte mean corpuscular volume 94 [ foz_us] 80-99 Automated erythrocyte mean corpuscular h emoglobin (mass per erythrocyte) 30 pg 25-34 Automated erythrocyte mean corpuscular h emoglobin concentration measurement (mass/volume) 32 g/dL 32-36 Automated erythrocyte distribution width ratio 14. 1 % 10.0- 14.5 Automated blood platelet count (count/volume) 260 10*3/uL 130-400 Automated blood platelet mean volume measurement 11.3 [foz_us] 7.4-10.4 Automated blood neutrophils/100 leukocytes 87 % 42-75 Automated blood lymphocytes/100 leukocytes 5 % 12-44 Blood monocytes/100 leukocytes 7 % 0-12 Automated blood eosinophils/100 leukocytes 0 % 0-10 Automated blood basophils/100 leukocytes 0 % 0-10 Blood neutrophils automated count (number/volume) 18.1 10*3 1.8-7.8 Blood lymphocytes automated count (number/volume) 1.1 10*3 1.0-4.0 Blood monocytes automated count (number/volume) 1. 5 10*3 0.0-1.0 Automated eosinophil count 0.1 10*3/uL 0 .0-0.3 Automated blood basophil count (count/volume) 0.0 10*3/uL 0.0-0.1 PT panel in platelet poor plasma by coag ulation assay - 05/30/19 05:40 Prothrombin time (PT) in platelet poor plasma by coagu lation assay 16.4 s 12.2-14.7 INR in platelet poor plasma or blood by coagulation as say 1.3 0.8-1.4 Whole blood basic metabolic panel - 11/13 05:40 Serum or plasma sodium measurement (moles/volume) 144 mmol/L 135-145 Serum or plasma potassium measurement (moles/volume) 3.2 mmol/L 3.6-5.0 Serum or plasma chloride measurement (moles/volume) 116 mmol/L 98-107 Carbon dioxide 18 mmol/L 21-32 Serum or plasma anion gap determination (moles/volume) 10 mmol/L 5-14 Serum or plasma urea nitrogen measurement (mass/volume ) 33 mg/dL 7-18 Serum or plasma creatinine measurement (mass/volume) 1.07 mg/dL 0.60-1.30 Serum or plasma urea nitrogen/creatinine mass ratio 31 NRG Serum or plasma creatinine measurement w ith calculation of estimated glomerular filtration rate 49 NRG Serum or plasma glucose measurement (mass/volume) 109 mg/dL 70-105 Serum or plasma calcium measurement (mass/volume) 8.3 mg/dL 8.5-10.1 Methicillin resistant Staphylococcus aur eus (MRSA) screening culture - 05/30/19 06:50 Methicillin resistant Staphylococcus aureus (MRSA) scr eening culture NEG NRG Serum or plasma troponin i.cardiac measu rement (mass/volume) - 05/30/19 08:50 Serum or plasma troponin i.cardiac measurement (mass/v olume) 0.029 ng/mL <0.028 Serum or plasma troponin i.cardiac measu rement (mass/volume) - 05/30/19 14:50 Serum or plasma troponin i.cardiac measurement (mass/v olume) < ng/mL <0.028 Serum or plasma triglyceride measurement (mass/volume) - 05/30/19 14:50 Serum or plasma triglyceride measurement (mass/volume) 72 mg/dL <150 RED CELLS LEUKO REDUCED AS1 - 05/30/19 1 6:05 RED CELLS LEUKO REDUCED AS1 T RANSFUSED 06/01/19 1330 NRG Blood type T Indirect antibody screen pa manjeet - 05/30/19 16:05 WRISTBAND NUMBER [id number] NRG ABO+Rh group OP NRG Blood group antibody screen NEGATIVE NR G Sputum Gram stain - 05/30/19 19:46 Sputum Gram stain Mixed Bacterial Alysha NRG Bacterial sputum culture - 05/30/19 19:4 6 QUANTITY OF GROWTH SMALL AMOUNT NRG Bacterial sputum culture USUAL RESP NRG Arterial blood gas measurement - 9 20:30 Blood pCO2 44 mm[Hg] 35-45 Blood pO2 78 mm[Hg] 79-93 Arterial blood bicarbonate measurement (moles/volume) 16 mmol/L 23-27 Arterial blood base excess by calculation -11.7 mm ol/L -2.5-2.5 Arterial blood oxygen saturation measurement 93 % 94-100 * Inhaled oxygen flow rate 50% NRG Arterial blood pH measurement with patient temperature correction 7.16 7.37-7.43 Arterial blood carbon dioxide, total measurement (mole s/volume) 16.9 mmol/L 21.0-31.0 Body site LT ART NRG Assessment of wrist artery patency prior to arterial p uncture YES-POS NRG Setting of ventilation mode YES NR G Measurement of body temperature 36.0 NRG Venous blood hemoglobin measurement (mas s/volume) - 05/30/19 22:00 Venous blood hemoglobin measurement (mass/volume) 9.2 g/dL 11.5-16.0 Arterial blood gas measurement - 9 22:18 Blood pCO2 31 mm[Hg] 35-45 Blood pO2 105 mm[Hg] 79-93 Arterial blood bicarbonate measurement (moles/volume) 16 mmol/L 23-27 Arterial blood base excess by calculation -9.5 mmo l/L -2.5-2.5 Arterial blood oxygen saturation measurement 99 % 94-100 * Inhaled oxygen flow rate 60% NRG Arterial blood pH measurement with patient temperature correction 7.32 7.37-7.43 Arterial blood carbon dioxide, total measurement (mole s/volume) 16.5 mmol/L 21.0-31.0 Body site ART LINE NRG Assessment of wrist artery patency prior to arterial p uncture ART LINE NRG Setting of ventilation mode YES NR G Measurement of body temperature 36.2 NRG Blood lactic acid measurement (moles/vol ume) - 05/30/19 22:21 Blood lactic acid measurement (moles/volume) 1.30 mmol/L 0.50-2.00 Serum or plasma lithium measurement (mol es/volume) - 05/30/19 22:21 BNP PT 775.8 pg/mL <100.0 Whole blood basic metabolic panel - 11/13 22:21 Serum or plasma sodium measurement (moles/volume) 143 mmol/L 135-145 Serum or plasma potassium measurement (moles/volume) 4.5 mmol/L 3.6-5.0 Serum or plasma chloride measurement (moles/volume) 115 mmol/L 98-107 Carbon dioxide 14 mmol/L 21-32 Serum or plasma anion gap determination (moles/volume) 14 mmol/L 5-14 Serum or plasma urea nitrogen measurement (mass/volume ) 30 mg/dL 7-18 Serum or plasma creatinine measurement (mass/volume) 1.13 mg/dL 0.60-1.30 Serum or plasma urea nitrogen/creatinine mass ratio 27 NRG Serum or plasma creatinine measurement w ith calculation of estimated glomerular filtration rate 46 NRG Serum or plasma glucose measurement (mass/volume) 219 mg/dL 70-105 Serum or plasma calcium measurement (mass/volume) 7.4 mg/dL 8.5-10.1 Magnesium - 05/30/19 22:21 Magnesium 3.0 mg/dL 1.6-2.4 Serum or plasma troponin i.cardiac measu rement (mass/volume) - 05/30/19 22:21 Serum or plasma troponin i.cardiac measurement (mass/v olume) 1.437 ng/mL <0.028 Serum or plasma albumin measurement (mas s/volume) - 05/30/19 22:21 Serum or plasma albumin measurement (mass/volume) 2.6 g/dL 3.2-4.5 Capillary blood glucose measurement by g lucometer (mass/volume) - 05/31/19 01:03 Capillary blood glucose measurement by glucometer (mas s/volume) 213 mg/dL 70-110 Arterial blood gas measurement - 9 01:30 Blood pCO2 26 mm[Hg] 35-45 Blood pO2 233 mm[Hg] 79-93 Arterial blood bicarbonate measurement (moles/volume) 15 mmol/L 23-27 Arterial blood base excess by calculation -9.1 mmo l/L -2.5-2.5 Arterial blood oxygen saturation measurement 100 % 94-100 * Inhaled oxygen flow rate 60% NRG Arterial blood pH measurement with patient temperature correction 7.39 7.37-7.43 Arterial blood carbon dioxide, total measurement (mole s/volume) 16.2 mmol/L 21.0-31.0 Body site ART LINE NRG Assessment of wrist artery patency prior to arterial p uncture ART LINE NRG Setting of ventilation mode YES NR G Measurement of body temperature 35.0 NRG Blood lactic acid measurement (moles/vol ume) - 05/31/19 01:30 Blood lactic acid measurement (moles/volume) 1.37 mmol/L 0.50-2.00 Complete blood count (CBC) with automate d white blood cell (WBC) differential - 05/31/19 03:35 Blood leukocytes automated count (number/volume) 28.1 10*3/uL 4.3-11.0 Blood erythrocytes automated count (number/volume) 3.06 10*6/uL 4.35-5.85 Venous blood hemoglobin measurement (mass/volume) 9.2 g/dL 11.5-16.0 Blood hematocrit (volume fraction) 29 % 35-52 Automated erythrocyte mean corpuscular volume 94 [ foz_us] 80-99 Automated erythrocyte mean corpuscular h emoglobin (mass per erythrocyte) 30 pg 25-34 Automated erythrocyte mean corpuscular h emoglobin concentration measurement (mass/volume) 32 g/dL 32-36 Automated erythrocyte distribution width ratio 14. 4 % 10.0- 14.5 Automated blood platelet count (count/volume) 274 10*3/uL 130-400 Automated blood platelet mean volume measurement 10.5 [foz_us] 7.4-10.4 Automated blood neutrophils/100 leukocytes 90 % 42-75 Automated blood lymphocytes/100 leukocytes 2 % 12-44 Blood monocytes/100 leukocytes 8 % 0-12 Automated blood eosinophils/100 leukocytes 0 % 0-10 Automated blood basophils/100 leukocytes 0 % 0-10 Blood neutrophils automated count (number/volume) 25.2 10*3 1.8-7.8 Blood lymphocytes automated count (number/volume) 0.7 10*3 1.0-4.0 Blood monocytes automated count (number/volume) 2. 2 10*3 0.0-1.0 Automated eosinophil count 0.0 10*3/uL 0 .0-0.3 Automated blood basophil count (count/volume) 0.0 10*3/uL 0.0-0.1 PT panel in platelet poor plasma by coag ulation assay - 05/31/19 03:35 Prothrombin time (PT) in platelet poor plasma by coagu lation assay 16.5 s 12.2-14.7 INR in platelet poor plasma or blood by coagulation as say 1.3 0.8-1.4 Whole blood basic metabolic panel - 12/14 03:35 Serum or plasma sodium measurement (moles/volume) 144 mmol/L 135-145 Serum or plasma potassium measurement (moles/volume) 3.8 mmol/L 3.6-5.0 Serum or plasma chloride measurement (moles/volume) 114 mmol/L 98-107 Carbon dioxide 14 mmol/L 21-32 Serum or plasma anion gap determination (moles/volume) 16 mmol/L 5-14 Serum or plasma urea nitrogen measurement (mass/volume ) 32 mg/dL 7-18 Serum or plasma creatinine measurement (mass/volume) 1.42 mg/dL 0.60-1.30 Serum or plasma urea nitrogen/creatinine mass ratio 23 NRG Serum or plasma creatinine measurement w ith calculation of estimated glomerular filtration rate 36 NRG Serum or plasma glucose measurement (mass/volume) 192 mg/dL 70-105 Serum or plasma calcium measurement (mass/volume) 7.7 mg/dL 8.5-10.1 Serum or plasma phosphate measurement (m ass/volume) - 05/31/19 03:35 Serum or plasma phosphate measurement (mass/volume) 2.6 mg/dL 2.3-4.7 Magnesium - 05/31/19 03:35 Magnesium 2.6 mg/dL 1.6-2.4 Arterial blood gas measurement - 9 03:45 Blood pCO2 26 mm[Hg] 35-45 Blood pO2 74 mm[Hg] 79-93 Arterial blood bicarbonate measurement (moles/volume) 15 mmol/L 23-27 Arterial blood base excess by calculation -9.5 mmo l/L -2.5-2.5 Arterial blood oxygen saturation measurement 96 % 94-100 * Inhaled oxygen flow rate 30% NRG Arterial blood pH measurement with patient temperature correction 7.37 7.37-7.43 Arterial blood carbon dioxide, total measurement (mole s/volume) 15.7 mmol/L 21.0-31.0 Body site LTRADIAL NRG Assessment of wrist artery patency prior to arterial p uncture YES-POS NRG Setting of ventilation mode YES NR G Measurement of body temperature 36.0 NRG Complete urinalysis with reflex to cultu re - 05/31/19 06:45 Urine color determination YELLOW NRG Urine clarity determination CLEAR NR G Urine pH measurement by test strip 5 5-9 Specific gravity of urine by test strip 1.020 1.016-1.022 Urine protein assay by test strip, semi-quantitative 3+ NEGATIVE Urine glucose detection by automated test strip NE GATIVE NEGATIVE Erythrocytes detection in urine sediment by light micr oscopy 2+ NEGATIVE Urine ketones detection by automated test strip 2+ NEGATIVE Urine nitrite detection by test strip POSITIVE NEGATIVE Urine total bilirubin detection by test strip 1+ NEGATIVE Urine urobilinogen measurement by automated test strip (mass/volume) 1 mg/dL NORMAL Urine leukocyte esterase detection by dipstick 3+ NEGATIVE Automated urine sediment erythrocyte cou nt by microscopy (number/high power field) NONE NRG Automated urine sediment leukocyte count by microscopy (number/high power field) [HPF] NRG Bacteria detection in urine sediment by light microsco py FEW NRG Squamous epithelial cells detection in u rine sediment by light microscopy 5-10 NRG Crystals detection in urine sediment by light microsco py NONE NRG Casts detection in urine sediment by light microscopy PRESENT NRG Mucus detection in urine sediment by light microscopy NEGATIVE NRG Complete urinalysis with reflex to culture YES NRG Granular casts detection in urine sediment by light mi croscopy 5-10 NRG Bacterial urine culture - 05/31/19 06:45 Bacterial urine culture NG NRG Bacterial blood culture - 05/31/19 07:10 Bacterial blood culture NG NRG Comprehensive metabolic panel - 05/31/19 07:15 Serum or plasma sodium measurement (moles/volume) 144 mmol/L 135-145 Serum or plasma potassium measurement (moles/volume) 3.9 mmol/L 3.6-5.0 Serum or plasma chloride measurement (moles/volume) 113 mmol/L 98-107 Carbon dioxide 17 mmol/L 21-32 Serum or plasma anion gap determination (moles/volume) 14 mmol/L 5-14 Serum or plasma urea nitrogen measurement (mass/volume ) 32 mg/dL 7-18 Serum or plasma creatinine measurement (mass/volume) 1.56 mg/dL 0.60-1.30 Serum or plasma urea nitrogen/creatinine mass ratio 21 NRG Serum or plasma creatinine measurement w ith calculation of estimated glomerular filtration rate 32 NRG Serum or plasma glucose measurement (mass/volume) 197 mg/dL 70-105 Serum or plasma calcium measurement (mass/volume) 7.7 mg/dL 8.5-10.1 Serum or plasma total bilirubin measurement (mass/volu me) 0.4 mg/dL 0.1-1.0 Serum or plasma alkaline phosphatase ca surement (enzymatic activity/volume) 74 U/L 40-136 Serum or plasma aspartate aminotransfera se measurement (enzymatic activity/volume) 18 U/L 5-34 Serum or plasma alanine aminotransferase measurement (enzymatic activity/volume) 12 U/L 0-55 Serum or plasma protein measurement (mass/volume) 4.7 g/dL 6.4-8.2 Serum or plasma albumin measurement (mass/volume) 3.0 g/dL 3.2-4.5 CALCIUM CORRECTED 8.5 mg/dL 8.5-10.1 Serum or plasma troponin i.cardiac measu rement (mass/volume) - 05/31/19 07:15 Serum or plasma troponin i.cardiac measurement (mass/v olume) 2.518 ng/mL <0.028 Bacterial blood culture - 05/31/19 07:15 Bacterial blood culture NG NRG Arterial blood gas measurement - 9 07:20 Blood pCO2 28 mm[Hg] 35-45 Blood pO2 102 mm[Hg] 79-93 Arterial blood bicarbonate measurement (moles/volume) 17 mmol/L 23-27 Arterial blood base excess by calculation -6.5 mmo l/L -2.5-2.5 Arterial blood oxygen saturation measurement 99 % 94-100 * Inhaled oxygen flow rate 30% NRG Arterial blood pH measurement with patient temperature correction 7.41 7.37-7.43 Arterial blood carbon dioxide, total measurement (mole s/volume) 18.3 mmol/L 21.0-31.0 Body site L ART LINE NRG Assessment of wrist artery patency prior to arterial p uncture N/A NRG Setting of ventilation mode YES NR G Measurement of body temperature 36.2 NRG Arterial blood gas measurement - 9 08:50 Blood pCO2 30 mm[Hg] 35-45 Blood pO2 74 mm[Hg] 79-93 Arterial blood bicarbonate measurement (moles/volume) 19 mmol/L 23-27 Arterial blood base excess by calculation -4.8 mmo l/L -2.5-2.5 Arterial blood oxygen saturation measurement 97 % 94-100 * Inhaled oxygen flow rate 20 NRG Arterial blood pH measurement with patient temperature correction 7.42 7.37-7.43 Arterial blood carbon dioxide, total measurement (mole s/volume) 20.0 mmol/L 21.0-31.0 Body site LEFT RADIAL NRG Assessment of wrist artery patency prior to arterial p uncture POSITIVE NRG Setting of ventilation mode YES NR G Measurement of body temperature 36.2 NRG Serum or plasma potassium measurement (m oles/volume) - 05/31/19 08:53 Serum or plasma potassium measurement (moles/volume) 4.5 mmol/L 3.6-5.0 Blood lactic acid measurement (moles/vol ume) - 05/31/19 08:53 Blood lactic acid measurement (moles/volume) 1.95 mmol/L 0.50-2.00 Serum or plasma potassium measurement (m oles/volume) - 05/31/19 12:17 Serum or plasma potassium measurement (moles/volume) 4.0 mmol/L 3.6-5.0 Blood lactic acid measurement (moles/vol ume) - 05/31/19 12:17 Blood lactic acid measurement (moles/volume) 1.10 mmol/L 0.50-2.00 Capillary blood glucose measurement by g lucometer (mass/volume) - 05/31/19 12:20 Capillary blood glucose measurement by glucometer (mas s/volume) 272 mg/dL 70-110 Arterial blood gas measurement - 9 14:04 Blood pCO2 38 mm[Hg] 35-45 Blood pO2 48 mm[Hg] 79-93 Arterial blood bicarbonate measurement (moles/volume) 23 mmol/L 23-27 Arterial blood base excess by calculation -1.3 mmo l/L -2.5-2.5 Arterial blood oxygen saturation measurement 87 % 94-100 * Inhaled oxygen flow rate 50% NRG Arterial blood pH measurement with patient temperature correction 7.40 7.37-7.43 Arterial blood carbon dioxide, total measurement (mole s/volume) 24.5 mmol/L 21.0-31.0 Body site UNK NRG Assessment of wrist artery patency prior to arterial p uncture UNK NRG Setting of ventilation mode YES NR G Measurement of body temperature 35.2 NRG Capillary blood glucose measurement by g lucometer (mass/volume) - 05/31/19 18:12 Capillary blood glucose measurement by glucometer (mas s/volume) 240 mg/dL 70-110 Capillary blood glucose measurement by g lucometer (mass/volume) - 06/01/19 00:05 Capillary blood glucose measurement by glucometer (mas s/volume) 181 mg/dL 70-110 Complete blood count (CBC) with automate d white blood cell (WBC) differential - 06/01/19 03:30 Blood leukocytes automated count (number/volume) 19.3 10*3/uL 4.3-11.0 Blood erythrocytes automated count (number/volume) 2.60 10*6/uL 4.35-5.85 Venous blood hemoglobin measurement (mass/volume) 7.9 g/dL 11.5-16.0 Blood hematocrit (volume fraction) 25 % 35-52 Automated erythrocyte mean corpuscular volume 95 [ foz_us] 80-99 Automated erythrocyte mean corpuscular h emoglobin (mass per erythrocyte) 30 pg 25-34 Automated erythrocyte mean corpuscular h emoglobin concentration measurement (mass/volume) 32 g/dL 32-36 Automated erythrocyte distribution width ratio 14. 4 % 10.0- 14.5 Automated blood platelet count (count/volume) 159 10*3/uL 130-400 Automated blood platelet mean volume measurement 10.9 [foz_us] 7.4-10.4 Automated blood neutrophils/100 leukocytes 84 % 42-75 Automated blood lymphocytes/100 leukocytes 7 % 12-44 Blood monocytes/100 leukocytes 9 % 0-12 Automated blood eosinophils/100 leukocytes 0 % 0-10 Automated blood basophils/100 leukocytes 0 % 0-10 Blood neutrophils automated count (number/volume) 16.2 10*3 1.8-7.8 Blood lymphocytes automated count (number/volume) 1.4 10*3 1.0-4.0 Blood monocytes automated count (number/volume) 1. 8 10*3 0.0-1.0 Automated eosinophil count 0.0 10*3/uL 0 .0-0.3 Automated blood basophil count (count/volume) 0.0 10*3/uL 0.0-0.1 Whole blood basic metabolic panel - 01/13 03:30 Serum or plasma sodium measurement (moles/volume) 144 mmol/L 135-145 Serum or plasma potassium measurement (moles/volume) 3.7 mmol/L 3.6-5.0 Serum or plasma chloride measurement (moles/volume) 106 mmol/L 98-107 Carbon dioxide 28 mmol/L 21-32 Serum or plasma anion gap determination (moles/volume) 10 mmol/L 5-14 Serum or plasma urea nitrogen measurement (mass/volume ) 31 mg/dL 7-18 Serum or plasma creatinine measurement (mass/volume) 1.79 mg/dL 0.60-1.30 Serum or plasma urea nitrogen/creatinine mass ratio 17 NRG Serum or plasma creatinine measurement w ith calculation of estimated glomerular filtration rate 27 NRG Serum or plasma glucose measurement (mass/volume) 196 mg/dL 70-105 Serum or plasma calcium measurement (mass/volume) 7.1 mg/dL 8.5-10.1 Serum or plasma phosphate measurement (m ass/volume) - 06/01/19 03:30 Serum or plasma phosphate measurement (mass/volume) 2.2 mg/dL 2.3-4.7 Magnesium - 06/01/19 03:30 Magnesium 2.3 mg/dL 1.6-2.4 Arterial blood gas measurement - 9 04:02 Blood pCO2 38 mm[Hg] 35-45 Blood pO2 86 mm[Hg] 79-93 Arterial blood bicarbonate measurement (moles/volume) 29 mmol/L 23-27 Arterial blood base excess by calculation 4.9 mmol /L -2.5-2.5 Arterial blood oxygen saturation measurement 98 % 94-100 * Inhaled oxygen flow rate 35% NRG Arterial blood pH measurement with patient temperature correction 7.49 7.37-7.43 Arterial blood carbon dioxide, total measurement (mole s/volume) 29.7 mmol/L 21.0-31.0 Body site RIGHT RADIAL NRG Assessment of wrist artery patency prior to arterial p uncture YES-POS NRG Setting of ventilation mode YES NR G Measurement of body temperature 36.0 NRG Capillary blood glucose measurement by g lucometer (mass/volume) - 06/01/19 05:34 Capillary blood glucose measurement by glucometer (mas s/volume) 197 mg/dL 70-110 Arterial blood gas measurement - 9 10:00 Blood pCO2 40 mm[Hg] 35-45 Blood pO2 52 mm[Hg] 79-93 Arterial blood bicarbonate measurement (moles/volume) 29 mmol/L 23-27 Arterial blood base excess by calculation 5.4 mmol /L -2.5-2.5 Arterial blood oxygen saturation measurement 84 % 94-100 * Inhaled oxygen flow rate 30% NRG Arterial blood pH measurement with patient temperature correction 7.48 7.37-7.43 Arterial blood carbon dioxide, total measurement (mole s/volume) 30.4 mmol/L 21.0-31.0 Body site RT RAD NRG Assessment of wrist artery patency prior to arterial p uncture YES-POS NRG Setting of ventilation mode YES NR G Measurement of body temperature 36.6 NRG Capillary blood glucose measurement by g lucometer (mass/volume) - 06/01/19 11:44 Capillary blood glucose measurement by glucometer (mas s/volume) 163 mg/dL 70-110 Serum or plasma triglyceride measurement (mass/volume) - 06/01/19 18:20 Serum or plasma triglyceride measurement (mass/volume) 104 mg/dL <150 Capillary blood glucose measurement by g lucometer (mass/volume) - 06/01/19 18:22 Capillary blood glucose measurement by glucometer (mas s/volume) 147 mg/dL 70-110 Complete blood count (CBC) with automate d white blood cell (WBC) differential - 06/02/19 03:40 Blood leukocytes automated count (number/volume) 20.9 10*3/uL 4.3-11.0 Blood erythrocytes automated count (number/volume) 3.03 10*6/uL 4.35-5.85 Venous blood hemoglobin measurement (mass/volume) 9.0 g/dL 11.5-16.0 Blood hematocrit (volume fraction) 28 % 35-52 Automated erythrocyte mean corpuscular volume 93 [ foz_us] 80-99 Automated erythrocyte mean corpuscular h emoglobin (mass per erythrocyte) 30 pg 25-34 Automated erythrocyte mean corpuscular h emoglobin concentration measurement (mass/volume) 32 g/dL 32-36 Automated erythrocyte distribution width ratio 16. 0 % 10.0- 14.5 Automated blood platelet count (count/volume) 145 10*3/uL 130-400 Automated blood platelet mean volume measurement 10.5 [foz_us] 7.4-10.4 Automated blood neutrophils/100 leukocytes 85 % 42-75 Automated blood lymphocytes/100 leukocytes 9 % 12-44 Blood monocytes/100 leukocytes 6 % 0-12 Automated blood eosinophils/100 leukocytes 0 % 0-10 Automated blood basophils/100 leukocytes 0 % 0-10 Blood neutrophils automated count (number/volume) 17.7 10*3 1.8-7.8 Blood lymphocytes automated count (number/volume) 1.8 10*3 1.0-4.0 Blood monocytes automated count (number/volume) 1. 3 10*3 0.0-1.0 Automated eosinophil count 0.1 10*3/uL 0 .0-0.3 Automated blood basophil count (count/volume) 0.0 10*3/uL 0.0-0.1 Whole blood basic metabolic panel - 02/13 03:40 Serum or plasma sodium measurement (moles/volume) 146 mmol/L 135-145 Serum or plasma potassium measurement (moles/volume) 3.1 mmol/L 3.6-5.0 Serum or plasma chloride measurement (moles/volume) 103 mmol/L 98-107 Carbon dioxide 31 mmol/L 21-32 Serum or plasma anion gap determination (moles/volume) 12 mmol/L 5-14 Serum or plasma urea nitrogen measurement (mass/volume ) 32 mg/dL 7-18 Serum or plasma creatinine measurement (mass/volume) 1.62 mg/dL 0.60-1.30 Serum or plasma urea nitrogen/creatinine mass ratio 20 NRG Serum or plasma creatinine measurement w ith calculation of estimated glomerular filtration rate 31 NRG Serum or plasma glucose measurement (mass/volume) 147 mg/dL 70-105 Serum or plasma calcium measurement (mass/volume) 7.3 mg/dL 8.5-10.1 Serum or plasma phosphate measurement (m ass/volume) - 06/02/19 03:40 Serum or plasma phosphate measurement (mass/volume) 2.5 mg/dL 2.3-4.7 Magnesium - 06/02/19 03:40 Magnesium 2.0 mg/dL 1.6-2.4 Serum or plasma lithium measurement (mol es/volume) - 06/02/19 03:40 BNP PT 1421.4 pg/mL <100.0 Bacterial blood culture - 06/02/19 05:25 Bacterial blood culture NG NRG Bacterial blood culture - 06/02/19 05:35 Bacterial blood culture NG NRG Blood lactic acid measurement (moles/vol ume) - 06/02/19 06:45 Blood lactic acid measurement (moles/volume) 2.22 mmol/L 0.50-2.00 Bacterial blood culture - 06/02/19 06:45 Bacterial blood culture NG NRG Complete urinalysis with reflex to cultu re - 06/02/19 07:25 Urine color determination YELLOW NRG Urine clarity determination CLEAR NR G Urine pH measurement by test strip 5 5-9 Specific gravity of urine by test strip 1.020 1.016-1.022 Urine protein assay by test strip, semi-quantitative 3+ NEGATIVE Urine glucose detection by automated test strip NE GATIVE NEGATIVE Erythrocytes detection in urine sediment by light micr oscopy 3+ NEGATIVE Urine ketones detection by automated test strip NE GATIVE NEGATIVE Urine nitrite detection by test strip NEGATIVE NEGATIVE Urine total bilirubin detection by test strip NEGA TIVE NEGATIVE Urine urobilinogen measurement by automated test strip (mass/volume) NORMAL NORMAL Urine leukocyte esterase detection by dipstick 2+ NEGATIVE Automated urine sediment erythrocyte cou nt by microscopy (number/high power field) NONE NRG Automated urine sediment leukocyte count by microscopy (number/high power field) [HPF] NRG Bacteria detection in urine sediment by light microsco py MODERATE NRG Squamous epithelial cells detection in u rine sediment by light microscopy NONE NRG Crystals detection in urine sediment by light microsco py NONE NRG Casts detection in urine sediment by light microscopy NONE NRG Mucus detection in urine sediment by light microscopy SMALL NRG Complete urinalysis with reflex to culture YES NRG Bacterial urine culture - 06/02/19 07:25 Bacterial urine culture NG NRG Serum or plasma lactate measurement (mol es/volume) - 06/02/19 09:25 Serum or plasma lactate measurement (moles/volume) 2.29 mmol/L 0.50-2.00 Capillary blood glucose measurement by g lucometer (mass/volume) - 06/02/19 11:37 Capillary blood glucose measurement by glucometer (mas s/volume) 173 mg/dL 70-110 Whole blood basic metabolic panel - 02/13 14:55 Serum or plasma sodium measurement (moles/volume) 149 mmol/L 135-145 Serum or plasma potassium measurement (moles/volume) 3.8 mmol/L 3.6-5.0 Serum or plasma chloride measurement (moles/volume) 108 mmol/L 98-107 Carbon dioxide 27 mmol/L 21-32 Serum or plasma anion gap determination (moles/volume) 14 mmol/L 5-14 Serum or plasma urea nitrogen measurement (mass/volume ) 30 mg/dL 7-18 Serum or plasma creatinine measurement (mass/volume) 1.45 mg/dL 0.60-1.30 Serum or plasma urea nitrogen/creatinine mass ratio 21 NRG Serum or plasma creatinine measurement w ith calculation of estimated glomerular filtration rate 35 NRG Serum or plasma glucose measurement (mass/volume) 143 mg/dL 70-105 Serum or plasma calcium measurement (mass/volume) 6.9 mg/dL 8.5-10.1 Serum or plasma phosphate measurement (m ass/volume) - 06/02/19 14:55 Serum or plasma phosphate measurement (mass/volume) 2.3 mg/dL 2.3-4.7 Magnesium - 06/02/19 14:55 Magnesium 1.9 mg/dL 1.6-2.4 Capillary blood glucose measurement by g lucometer (mass/volume) - 06/02/19 17:46 Capillary blood glucose measurement by glucometer (mas s/volume) 147 mg/dL 70-110 Capillary blood glucose measurement by g lucometer (mass/volume) - 06/03/19 00:13 Capillary blood glucose measurement by glucometer (mas s/volume) 140 mg/dL 70-110 Whole blood basic metabolic panel - 03/15 03:23 Serum or plasma sodium measurement (moles/volume) 146 mmol/L 135-145 Serum or plasma potassium measurement (moles/volume) 4.0 mmol/L 3.6-5.0 Serum or plasma chloride measurement (moles/volume) 107 mmol/L 98-107 Carbon dioxide 29 mmol/L 21-32 Serum or plasma anion gap determination (moles/volume) 10 mmol/L 5-14 Serum or plasma urea nitrogen measurement (mass/volume ) 34 mg/dL 7-18 Serum or plasma creatinine measurement (mass/volume) 1.59 mg/dL 0.60-1.30 Serum or plasma urea nitrogen/creatinine mass ratio 21 NRG Serum or plasma creatinine measurement w ith calculation of estimated glomerular filtration rate 31 NRG Serum or plasma glucose measurement (mass/volume) 137 mg/dL 70-105 Serum or plasma calcium measurement (mass/volume) 7.4 mg/dL 8.5-10.1 Serum or plasma phosphate measurement (m ass/volume) - 06/03/19 03:23 Serum or plasma phosphate measurement (mass/volume) 3.3 mg/dL 2.3-4.7 Magnesium - 06/03/19 03:23 Magnesium 2.1 mg/dL 1.6-2.4 Complete blood count (CBC) with automate d white blood cell (WBC) differential - 06/03/19 03:23 Blood leukocytes automated count (number/volume) 18.8 10*3/uL 4.3-11.0 Blood erythrocytes automated count (number/volume) 3.03 10*6/uL 4.35-5.85 Venous blood hemoglobin measurement (mass/volume) 9.1 g/dL 11.5-16.0 Blood hematocrit (volume fraction) 29 % 35-52 Automated erythrocyte mean corpuscular volume 95 [ foz_us] 80-99 Automated erythrocyte mean corpuscular h emoglobin (mass per erythrocyte) 30 pg 25-34 Automated erythrocyte mean corpuscular h emoglobin concentration measurement (mass/volume) 32 g/dL 32-36 Automated erythrocyte distribution width ratio 16. 1 % 10.0- 14.5 Automated blood platelet count (count/volume) 142 10*3/uL 130-400 Automated blood platelet mean volume measurement 11.4 [foz_us] 7.4-10.4 Automated blood neutrophils/100 leukocytes 84 % 42-75 Automated blood lymphocytes/100 leukocytes 10 % 12-44 Blood monocytes/100 leukocytes 6 % 0-12 Automated blood eosinophils/100 leukocytes 0 % 0-10 Automated blood basophils/100 leukocytes 0 % 0-10 Blood neutrophils automated count (number/volume) 15.7 10*3 1.8-7.8 Blood lymphocytes automated count (number/volume) 2.0 10*3 1.0-4.0 Blood monocytes automated count (number/volume) 1. 1 10*3 0.0-1.0 Automated eosinophil count 0.0 10*3/uL 0 .0-0.3 Automated blood basophil count (count/volume) 0.0 10*3/uL 0.0-0.1 Capillary blood glucose measurement by g lucometer (mass/volume) - 06/03/19 12:10 Capillary blood glucose measurement by glucometer (mas s/volume) 181 mg/dL 70-110 Capillary blood glucose measurement by g lucometer (mass/volume) - 06/03/19 19:05 Capillary blood glucose measurement by glucometer (mas s/volume) 153 mg/dL 70-110 Capillary blood glucose measurement by g lucometer (mass/volume) - 06/03/19 23:40 Capillary blood glucose measurement by glucometer (mas s/volume) 156 mg/dL 70-110 Complete blood count (CBC) with automate d white blood cell (WBC) differential - 06/04/19 03:10 Blood leukocytes automated count (number/volume) 17.6 10*3/uL 4.3-11.0 Blood erythrocytes automated count (number/volume) 2.85 10*6/uL 4.35-5.85 Venous blood hemoglobin measurement (mass/volume) 8.6 g/dL 11.5-16.0 Blood hematocrit (volume fraction) 28 % 35-52 Automated erythrocyte mean corpuscular volume 97 [ foz_us] 80-99 Automated erythrocyte mean corpuscular h emoglobin (mass per erythrocyte) 30 pg 25-34 Automated erythrocyte mean corpuscular h emoglobin concentration measurement (mass/volume) 31 g/dL 32-36 Automated erythrocyte distribution width ratio 15. 9 % 10.0- 14.5 Automated blood platelet count (count/volume) 140 10*3/uL 130-400 Automated blood platelet mean volume measurement 11.1 [foz_us] 7.4-10.4 Automated blood neutrophils/100 leukocytes 80 % 42-75 Automated blood lymphocytes/100 leukocytes 11 % 12-44 Blood monocytes/100 leukocytes 8 % 0-12 Automated blood eosinophils/100 leukocytes 1 % 0-10 Automated blood basophils/100 leukocytes 0 % 0-10 Blood neutrophils automated count (number/volume) 14.0 10*3 1.8-7.8 Blood lymphocytes automated count (number/volume) 2.0 10*3 1.0-4.0 Blood monocytes automated count (number/volume) 1. 5 10*3 0.0-1.0 Automated eosinophil count 0.1 10*3/uL 0 .0-0.3 Automated blood basophil count (count/volume) 0.0 10*3/uL 0.0-0.1 Whole blood basic metabolic panel - 04/15 03:10 Serum or plasma sodium measurement (moles/volume) 143 mmol/L 135-145 Serum or plasma potassium measurement (moles/volume) 3.6 mmol/L 3.6-5.0 Serum or plasma chloride measurement (moles/volume) 106 mmol/L 98-107 Carbon dioxide 27 mmol/L 21-32 Serum or plasma anion gap determination (moles/volume) 10 mmol/L 5-14 Serum or plasma urea nitrogen measurement (mass/volume ) 34 mg/dL 7-18 Serum or plasma creatinine measurement (mass/volume) 1.61 mg/dL 0.60-1.30 Serum or plasma urea nitrogen/creatinine mass ratio 21 NRG Serum or plasma creatinine measurement w ith calculation of estimated glomerular filtration rate 31 NRG Serum or plasma glucose measurement (mass/volume) 164 mg/dL 70-105 Serum or plasma calcium measurement (mass/volume) 7.5 mg/dL 8.5-10.1 Serum or plasma phosphate measurement (m ass/volume) - 06/04/19 03:10 Serum or plasma phosphate measurement (mass/volume) 3.1 mg/dL 2.3-4.7 Magnesium - 06/04/19 03:10 Magnesium 1.9 mg/dL 1.6-2.4 Capillary blood glucose measurement by g lucometer (mass/volume) - 06/04/19 11:15 Capillary blood glucose measurement by glucometer (mas s/volume) 154 mg/dL 70-110 Capillary blood glucose measurement by g lucometer (mass/volume) - 06/04/19 17:41 Capillary blood glucose measurement by glucometer (mas s/volume) 168 mg/dL 70-110 Complete blood count (CBC) with automate d white blood cell (WBC) differential - 06/05/19 03:09 Blood leukocytes automated count (number/volume) 16.1 10*3/uL 4.3-11.0 Blood erythrocytes automated count (number/volume) 2.77 10*6/uL 4.35-5.85 Venous blood hemoglobin measurement (mass/volume) 8.4 g/dL 11.5-16.0 Blood hematocrit (volume fraction) 27 % 35-52 Automated erythrocyte mean corpuscular volume 98 [ foz_us] 80-99 Automated erythrocyte mean corpuscular h emoglobin (mass per erythrocyte) 30 pg 25-34 Automated erythrocyte mean corpuscular h emoglobin concentration measurement (mass/volume) 31 g/dL 32-36 Automated erythrocyte distribution width ratio 15. 3 % 10.0- 14.5 Automated blood platelet count (count/volume) 111 10*3/uL 130-400 Automated blood platelet mean volume measurement 12.0 [foz_us] 7.4-10.4 Automated blood neutrophils/100 leukocytes 80 % 42-75 Automated blood lymphocytes/100 leukocytes 12 % 12-44 Blood monocytes/100 leukocytes 8 % 0-12 Automated blood eosinophils/100 leukocytes 1 % 0-10 Automated blood basophils/100 leukocytes 0 % 0-10 Blood neutrophils automated count (number/volume) 12.8 10*3 1.8-7.8 Blood lymphocytes automated count (number/volume) 1.9 10*3 1.0-4.0 Blood monocytes automated count (number/volume) 1. 3 10*3 0.0-1.0 Automated eosinophil count 0.1 10*3/uL 0 .0-0.3 Automated blood basophil count (count/volume) 0.0 10*3/uL 0.0-0.1 Comprehensive metabolic panel - 06/05/19 03:09 Serum or plasma sodium measurement (moles/volume) 142 mmol/L 135-145 Serum or plasma potassium measurement (moles/volume) 3.8 mmol/L 3.6-5.0 Serum or plasma chloride measurement (moles/volume) 106 mmol/L 98-107 Carbon dioxide 27 mmol/L 21-32 Serum or plasma anion gap determination (moles/volume) 9 mmol/L 5-14 Serum or plasma urea nitrogen measurement (mass/volume ) 32 mg/dL 7-18 Serum or plasma creatinine measurement (mass/volume) 1.53 mg/dL 0.60-1.30 Serum or plasma urea nitrogen/creatinine mass ratio 21 NRG Serum or plasma creatinine measurement w ith calculation of estimated glomerular filtration rate 33 NRG Serum or plasma glucose measurement (mass/volume) 146 mg/dL 70-105 Serum or plasma calcium measurement (mass/volume) 7.4 mg/dL 8.5-10.1 Serum or plasma total bilirubin measurement (mass/volu me) 0.9 mg/dL 0.1-1.0 Serum or plasma alkaline phosphatase ca surement (enzymatic activity/volume) 245 U/L 40-136 Serum or plasma aspartate aminotransfera se measurement (enzymatic activity/volume) 23 U/L 5-34 Serum or plasma alanine aminotransferase measurement (enzymatic activity/volume) 23 U/L 0-55 Serum or plasma protein measurement (mass/volume) 4.4 g/dL 6.4-8.2 Serum or plasma albumin measurement (mass/volume) 2.5 g/dL 3.2-4.5 CALCIUM CORRECTED 8.6 mg/dL 8.5-10.1 Serum or plasma phosphate measurement (m ass/volume) - 06/05/19 03:09 Serum or plasma phosphate measurement (mass/volume) 2.8 mg/dL 2.3-4.7 Magnesium - 06/05/19 03:09 Magnesium 1.9 mg/dL 1.6-2.4 THYROID STIMULATING HORMONE - 06/05/19 0 3:15 THYROID STIMULATING HORMONE 5.63 u[iU]/mL 0.35-4.94 Serum or plasma triglyceride measurement (mass/volume) - 06/05/19 04:51 Serum or plasma triglyceride measurement (mass/volume) 166 mg/dL <150 Prealbumin - 06/05/19 06:20 Serum or plasma prealbumin measurement (mass/volume) 9.7 % 18.0-37.0 Capillary blood glucose measurement by g lucometer (mass/volume) - 06/05/19 11:12 Capillary blood glucose measurement by glucometer (mas s/volume) 142 mg/dL 70-110 Capillary blood glucose measurement by g lucometer (mass/volume) - 06/05/19 17:27 Capillary blood glucose measurement by glucometer (mas s/volume) 171 mg/dL 70-110 Capillary blood glucose measurement by g lucometer (mass/volume) - 06/05/19 21:10 Capillary blood glucose measurement by glucometer (mas s/volume) 171 mg/dL 70-110 Complete blood count (CBC) with automate d white blood cell (WBC) differential - 06/06/19 03:00 Blood leukocytes automated count (number/volume) 24.2 10*3/uL 4.3-11.0 Blood erythrocytes automated count (number/volume) 3.07 10*6/uL 4.35-5.85 Venous blood hemoglobin measurement (mass/volume) 9.2 g/dL 11.5-16.0 Blood hematocrit (volume fraction) 29 % 35-52 Automated erythrocyte mean corpuscular volume 95 [ foz_us] 80-99 Automated erythrocyte mean corpuscular h emoglobin (mass per erythrocyte) 30 pg 25-34 Automated erythrocyte mean corpuscular h emoglobin concentration measurement (mass/volume) 31 g/dL 32-36 Automated erythrocyte distribution width ratio 15. 3 % 10.0- 14.5 Automated blood platelet count (count/volume) 149 10*3/uL 130-400 Automated blood platelet mean volume measurement 12.3 [foz_us] 7.4-10.4 Automated blood neutrophils/100 leukocytes 81 % 42-75 Automated blood lymphocytes/100 leukocytes 10 % 12-44 Blood monocytes/100 leukocytes 9 % 0-12 Automated blood eosinophils/100 leukocytes 1 % 0-10 Automated blood basophils/100 leukocytes 0 % 0-10 Blood neutrophils automated count (number/volume) 19.6 10*3 1.8-7.8 Blood lymphocytes automated count (number/volume) 2.4 10*3 1.0-4.0 Blood monocytes automated count (number/volume) 2. 1 10*3 0.0-1.0 Automated eosinophil count 0.2 10*3/uL 0 .0-0.3 Automated blood basophil count (count/volume) 0.0 10*3/uL 0.0-0.1 Manual absolute plasma cell count - 05/28 03:00 Blood monocytes/100 leukocytes 6 % NRG Manual blood segmented neutrophils/100 leukocytes 84 % NRG Blood band neutrophils/100 leukocytes 3 % NRG Manual blood lymphocytes/100 leukocytes 7 % NRG Manual eosinophils/100 leukocytes in nose 0 % NRG Manual blood basophils/100 leukocytes 0 % NRG Blood polychromasia detection by light microscopy SLIGHT NRG Blood anisocytosis detection by light microscopy S LIGHT NRG Blood macrocytes detection by light microscopy SLI GHT NRG Blood toxic granules detection by light microscopy 1+ NRG Blood poikilocytosis detection by light microscopy SLIGHT NRG Manual blood nucleated erythrocytes/100 leukocytes ratio 3 NRG Whole blood basic metabolic panel - 05/28 03:00 Serum or plasma sodium measurement (moles/volume) 142 mmol/L 135-145 Serum or plasma potassium measurement (moles/volume) 3.8 mmol/L 3.6-5.0 Serum or plasma chloride measurement (moles/volume) 105 mmol/L 98-107 Carbon dioxide 26 mmol/L 21-32 Serum or plasma anion gap determination (moles/volume) 11 mmol/L 5-14 Serum or plasma urea nitrogen measurement (mass/volume ) 32 mg/dL 7-18 Serum or plasma creatinine measurement (mass/volume) 1.51 mg/dL 0.60-1.30 Serum or plasma urea nitrogen/creatinine mass ratio 21 NRG Serum or plasma creatinine measurement w ith calculation of estimated glomerular filtration rate 33 NRG Serum or plasma glucose measurement (mass/volume) 148 mg/dL 70-105 Serum or plasma calcium measurement (mass/volume) 7.6 mg/dL 8.5-10.1 Serum or plasma phosphate measurement (m ass/volume) - 06/06/19 03:00 Serum or plasma phosphate measurement (mass/volume) 2.7 mg/dL 2.3-4.7 Magnesium - 06/06/19 03:00 Magnesium 1.8 mg/dL 1.6-2.4 Automated blood complete blood count (he mogram) panel - 06/28/19 05:10 Blood leukocytes automated count (number/volume) 10.9 10*3/uL 4.3-11.0 Blood erythrocytes automated count (number/volume) 2.54 10*6/uL 4.35-5.85 Venous blood hemoglobin measurement (mass/volume) 7.3 g/dL 11.5-16.0 Blood hematocrit (volume fraction) 24 % 35-52 Automated erythrocyte mean corpuscular volume 95 [ foz_us] 80-99 Automated erythrocyte mean corpuscular h emoglobin (mass per erythrocyte) 29 pg 25-34 Automated erythrocyte mean corpuscular h emoglobin concentration measurement (mass/volume) 30 g/dL 32-36 Automated erythrocyte distribution width ratio 14. 9 % 10.0- 14.5 Automated blood platelet count (count/volume) 322 10*3/uL 130-400 Automated blood platelet mean volume measurement 10.4 [foz_us] 7.4-10.4 Comprehensive metabolic panel - 06/28/19 05:10 Serum or plasma sodium measurement (moles/volume) 142 mmol/L 135-145 Serum or plasma potassium measurement (moles/volume) 4.5 mmol/L 3.6-5.0 Serum or plasma chloride measurement (moles/volume) 106 mmol/L 98-107 Carbon dioxide 23 mmol/L 21-32 Serum or plasma anion gap determination (moles/volume) 13 mmol/L 5-14 Serum or plasma urea nitrogen measurement (mass/volume ) 39 mg/dL 7-18 Serum or plasma creatinine measurement (mass/volume) 1.46 mg/dL 0.60-1.30 Serum or plasma urea nitrogen/creatinine mass ratio 27 NRG Serum or plasma creatinine measurement w ith calculation of estimated glomerular filtration rate 34 NRG Serum or plasma glucose measurement (mass/volume) 96 mg/dL 70-105 Serum or plasma calcium measurement (mass/volume) 8.9 mg/dL 8.5-10.1 Serum or plasma total bilirubin measurement (mass/volu me) 0.4 mg/dL 0.1-1.0 Serum or plasma alkaline phosphatase ca surement (enzymatic activity/volume) 147 U/L 40-136 Serum or plasma aspartate aminotransfera se measurement (enzymatic activity/volume) 25 U/L 5-34 Serum or plasma alanine aminotransferase measurement (enzymatic activity/volume) 21 U/L 0-55 Serum or plasma protein measurement (mass/volume) 5.6 g/dL 6.4-8.2 Serum or plasma albumin measurement (mass/volume) 3.1 g/dL 3.2-4.5 CALCIUM CORRECTED 9.6 mg/dL 8.5-10.1 IRON TEST - 06/28/19 05:10 Serum or plasma iron measurement (mass/volume) 24 % 35-180 Prealbumin - 06/28/19 05:10 Serum or plasma prealbumin measurement (mass/volume) 13.5 % 18.0-37.0 Complete blood count (CBC) with automate d white blood cell (WBC) differential - 07/01/19 05:38 Blood leukocytes automated count (number/volume) 11.3 10*3/uL 4.3-11.0 Blood erythrocytes automated count (number/volume) 2.60 10*6/uL 4.35-5.85 Venous blood hemoglobin measurement (mass/volume) 7.6 g/dL 11.5-16.0 Blood hematocrit (volume fraction) 24 % 35-52 Automated erythrocyte mean corpuscular volume 94 [ foz_us] 80-99 Automated erythrocyte mean corpuscular h emoglobin (mass per erythrocyte) 29 pg 25-34 Automated erythrocyte mean corpuscular h emoglobin concentration measurement (mass/volume) 31 g/dL 32-36 Automated erythrocyte distribution width ratio 15. 0 % 10.0- 14.5 Automated blood platelet count (count/volume) 336 10*3/uL 130-400 Automated blood platelet mean volume measurement 10.8 [foz_us] 7.4-10.4 Automated blood neutrophils/100 leukocytes 55 % 42-75 Automated blood lymphocytes/100 leukocytes 33 % 12-44 Blood monocytes/100 leukocytes 10 % 0-12 Automated blood eosinophils/100 leukocytes 2 % 0-10 Automated blood basophils/100 leukocytes 1 % 0-10 Blood neutrophils automated count (number/volume) 6.2 10*3 1.8-7.8 Blood lymphocytes automated count (number/volume) 3.7 10*3 1.0-4.0 Blood monocytes automated count (number/volume) 1. 1 10*3 0.0-1.0 Automated eosinophil count 0.3 10*3/uL 0 .0-0.3 Automated blood basophil count (count/volume) 0.1 10*3/uL 0.0-0.1 Comprehensive metabolic panel - 07/01/19 05:38 Serum or plasma sodium measurement (moles/volume) 141 mmol/L 135-145 Serum or plasma potassium measurement (moles/volume) 4.1 mmol/L 3.6-5.0 Serum or plasma chloride measurement (moles/volume) 106 mmol/L 98-107 Carbon dioxide 24 mmol/L 21-32 Serum or plasma anion gap determination (moles/volume) 11 mmol/L 5-14 Serum or plasma urea nitrogen measurement (mass/volume ) 41 mg/dL 7-18 Serum or plasma creatinine measurement (mass/volume) 1.60 mg/dL 0.60-1.30 Serum or plasma urea nitrogen/creatinine mass ratio 26 NRG Serum or plasma creatinine measurement w ith calculation of estimated glomerular filtration rate 31 NRG Serum or plasma glucose measurement (mass/volume) 97 mg/dL 70-105 Serum or plasma calcium measurement (mass/volume) 9.5 mg/dL 8.5-10.1 Serum or plasma total bilirubin measurement (mass/volu me) 0.3 mg/dL 0.1-1.0 Serum or plasma alkaline phosphatase ca surement (enzymatic activity/volume) 118 U/L 40-136 Serum or plasma aspartate aminotransfera se measurement (enzymatic activity/volume) 13 U/L 5-34 Serum or plasma alanine aminotransferase measurement (enzymatic activity/volume) 15 U/L 0-55 Serum or plasma protein measurement (mass/volume) 5.7 g/dL 6.4-8.2 Serum or plasma albumin measurement (mass/volume) 3.2 g/dL 3.2-4.5 CALCIUM CORRECTED 10.1 mg/dL 8.5-10.1 Serum or plasma renal function panel (Na , K, Cl, CO2, BUN, Cr, glucose,Ca, phos, alb) - 07/04/19 10:47 Serum or plasma sodium measurement (moles/volume) 138 mmol/L 135-145 Serum or plasma potassium measurement (moles/volume) 4.6 mmol/L 3.6-5.0 Serum or plasma chloride measurement (moles/volume) 103 mmol/L 98-107 Carbon dioxide 23 mmol/L 21-32 Serum or plasma anion gap determination (moles/volume) 12 mmol/L 5-14 Serum or plasma urea nitrogen measurement (mass/volume ) 54 mg/dL 7-18 Serum or plasma creatinine measurement (mass/volume) 2.30 mg/dL 0.60-1.30 Serum or plasma urea nitrogen/creatinine mass ratio 23 NRG Serum or plasma creatinine measurement w ith calculation of estimated glomerular filtration rate 20 NRG Serum or plasma glucose measurement (mass/volume) 103 mg/dL 70-105 Serum or plasma calcium measurement (mass/volume) 9.7 mg/dL 8.5-10.1 Serum or plasma albumin measurement (mass/volume) 3.7 g/dL 3.2-4.5 Serum or plasma phosphate measurement (mass/volume) 3.5 mg/dL 2.3-4.7 Serum or plasma renal function panel (Na , K, Cl, CO2, BUN, Cr, glucose,Ca, phos, alb) - 07/05/19 06:08 Serum or plasma sodium measurement (moles/volume) 139 mmol/L 135-145 Serum or plasma potassium measurement (moles/volume) 5.1 mmol/L 3.6-5.0 Serum or plasma chloride measurement (moles/volume) 104 mmol/L 98-107 Carbon dioxide 21 mmol/L 21-32 Serum or plasma anion gap determination (moles/volume) 14 mmol/L 5-14 Serum or plasma urea nitrogen measurement (mass/volume ) 59 mg/dL 7-18 Serum or plasma creatinine measurement (mass/volume) 1.99 mg/dL 0.60-1.30 Serum or plasma urea nitrogen/creatinine mass ratio 30 NRG Serum or plasma creatinine measurement w ith calculation of estimated glomerular filtration rate 24 NRG Serum or plasma glucose measurement (mass/volume) 106 mg/dL 70-105 Serum or plasma calcium measurement (mass/volume) 9.4 mg/dL 8.5-10.1 Serum or plasma albumin measurement (mass/volume) 3.6 g/dL 3.2-4.5 Serum or plasma phosphate measurement (mass/volume) 4.5 mg/dL 2.3-4.7 Complete blood count (CBC) with automate d white blood cell (WBC) differential - 07/08/19 04:55 Blood leukocytes automated count (number/volume) 12.0 10*3/uL 4.3-11.0 Blood erythrocytes automated count (number/volume) 2.71 10*6/uL 4.35-5.85 Venous blood hemoglobin measurement (mass/volume) 7.9 g/dL 11.5-16.0 Blood hematocrit (volume fraction) 26 % 35-52 Automated erythrocyte mean corpuscular volume 95 [ foz_us] 80-99 Automated erythrocyte mean corpuscular h emoglobin (mass per erythrocyte) 29 pg 25-34 Automated erythrocyte mean corpuscular h emoglobin concentration measurement (mass/volume) 31 g/dL 32-36 Automated erythrocyte distribution width ratio 16. 6 % 10.0- 14.5 Automated blood platelet count (count/volume) 308 10*3/uL 130-400 Automated blood platelet mean volume measurement 10.6 [foz_us] 7.4-10.4 Automated blood neutrophils/100 leukocytes 57 % 42-75 Automated blood lymphocytes/100 leukocytes 31 % 12-44 Blood monocytes/100 leukocytes 10 % 0-12 Automated blood eosinophils/100 leukocytes 1 % 0-10 Automated blood basophils/100 leukocytes 1 % 0-10 Blood neutrophils automated count (number/volume) 6.8 10*3 1.8-7.8 Blood lymphocytes automated count (number/volume) 3.7 10*3 1.0-4.0 Blood monocytes automated count (number/volume) 1. 2 10*3 0.0-1.0 Automated eosinophil count 0.1 10*3/uL 0 .0-0.3 Automated blood basophil count (count/volume) 0.1 10*3/uL 0.0-0.1 Comprehensive metabolic panel - 07/08/19 04:55 Serum or plasma sodium measurement (moles/volume) 141 mmol/L 135-145 Serum or plasma potassium measurement (moles/volume) 4.4 mmol/L 3.6-5.0 Serum or plasma chloride measurement (moles/volume) 108 mmol/L 98-107 Carbon dioxide 22 mmol/L 21-32 Serum or plasma anion gap determination (moles/volume) 11 mmol/L 5-14 Serum or plasma urea nitrogen measurement (mass/volume ) 47 mg/dL 7-18 Serum or plasma creatinine measurement (mass/volume) 1.47 mg/dL 0.60-1.30 Serum or plasma urea nitrogen/creatinine mass ratio 32 NRG Serum or plasma creatinine measurement w ith calculation of estimated glomerular filtration rate 34 NRG Serum or plasma glucose measurement (mass/volume) 95 mg/dL 70-105 Serum or plasma calcium measurement (mass/volume) 9.2 mg/dL 8.5-10.1 Serum or plasma total bilirubin measurement (mass/volu me) 0.2 mg/dL 0.1-1.0 Serum or plasma alkaline phosphatase ca surement (enzymatic activity/volume) 118 U/L 40-136 Serum or plasma aspartate aminotransfera se measurement (enzymatic activity/volume) 14 U/L 5-34 Serum or plasma alanine aminotransferase measurement (enzymatic activity/volume) 19 U/L 0-55 Serum or plasma protein measurement (mass/volume) 5.9 g/dL 6.4-8.2 Serum or plasma albumin measurement (mass/volume) 3.4 g/dL 3.2-4.5 CALCIUM CORRECTED 9.7 mg/dL 8.5-10.1 Automated blood complete blood count (he mogram) panel - 07/11/19 05:55 Blood leukocytes automated count (number/volume) 10.3 10*3/uL 4.3-11.0 Blood erythrocytes automated count (number/volume) 2.83 10*6/uL 4.35-5.85 Venous blood hemoglobin measurement (mass/volume) 8.4 g/dL 11.5-16.0 Blood hematocrit (volume fraction) 27 % 35-52 Automated erythrocyte mean corpuscular volume 96 [ foz_us] 80-99 Automated erythrocyte mean corpuscular h emoglobin (mass per erythrocyte) 30 pg 25-34 Automated erythrocyte mean corpuscular h emoglobin concentration measurement (mass/volume) 31 g/dL 32-36 Automated erythrocyte distribution width ratio 17. 5 % 10.0- 14.5 Automated blood platelet count (count/volume) 268 10*3/uL 130-400 Automated blood platelet mean volume measurement 11.3 [foz_us] 7.4-10.4 Serum or plasma creatinine measurement ( mass/volume) - 07/11/19 05:55 Serum or plasma creatinine measurement (mass/volume) 1.40 mg/dL 0.60-1.30 Complete blood count (CBC) with automate d white blood cell (WBC) differential - 07/15/19 04:45 Blood leukocytes automated count (number/volume) 9.4 10*3/uL 4.3-11.0 Blood erythrocytes automated count (number/volume) 2.88 10*6/uL 4.35-5.85 Venous blood hemoglobin measurement (mass/volume) 8.4 g/dL 11.5-16.0 Blood hematocrit (volume fraction) 28 % 35-52 Automated erythrocyte mean corpuscular volume 97 [ foz_us] 80-99 Automated erythrocyte mean corpuscular h emoglobin (mass per erythrocyte) 29 pg 25-34 Automated erythrocyte mean corpuscular h emoglobin concentration measurement (mass/volume) 30 g/dL 32-36 Automated erythrocyte distribution width ratio 17. 8 % 10.0- 14.5 Automated blood platelet count (count/volume) 237 10*3/uL 130-400 Automated blood platelet mean volume measurement 11.3 [foz_us] 7.4-10.4 Automated blood neutrophils/100 leukocytes 48 % 42-75 Automated blood lymphocytes/100 leukocytes 36 % 12-44 Blood monocytes/100 leukocytes 11 % 0-12 Automated blood eosinophils/100 leukocytes 4 % 0-10 Automated blood basophils/100 leukocytes 1 % 0-10 Blood neutrophils automated count (number/volume) 4.5 10*3 1.8-7.8 Blood lymphocytes automated count (number/volume) 3.4 10*3 1.0-4.0 Blood monocytes automated count (number/volume) 1. 0 10*3 0.0-1.0 Automated eosinophil count 0.4 10*3/uL 0 .0-0.3 Automated blood basophil count (count/volume) 0.1 10*3/uL 0.0-0.1 Comprehensive metabolic panel - 07/15/19 04:45 Serum or plasma sodium measurement (moles/volume) 141 mmol/L 135-145 Serum or plasma potassium measurement (moles/volume) 4.4 mmol/L 3.6-5.0 Serum or plasma chloride measurement (moles/volume) 109 mmol/L 98-107 Carbon dioxide 21 mmol/L 21-32 Serum or plasma anion gap determination (moles/volume) 11 mmol/L 5-14 Serum or plasma urea nitrogen measurement (mass/volume ) 32 mg/dL 7-18 Serum or plasma creatinine measurement (mass/volume) 1.38 mg/dL 0.60-1.30 Serum or plasma urea nitrogen/creatinine mass ratio 23 NRG Serum or plasma creatinine measurement w ith calculation of estimated glomerular filtration rate 37 NRG Serum or plasma glucose measurement (mass/volume) 99 mg/dL 70-105 Serum or plasma calcium measurement (mass/volume) 9.5 mg/dL 8.5-10.1 Serum or plasma total bilirubin measurement (mass/volu me) 0.2 mg/dL 0.1-1.0 Serum or plasma alkaline phosphatase ca surement (enzymatic activity/volume) 117 U/L 40-136 Serum or plasma aspartate aminotransfera se measurement (enzymatic activity/volume) 11 U/L 5-34 Serum or plasma alanine aminotransferase measurement (enzymatic activity/volume) 11 U/L 0-55 Serum or plasma protein measurement (mass/volume) 5.8 g/dL 6.4-8.2 Serum or plasma albumin measurement (mass/volume) 3.4 g/dL 3.2-4.5 CALCIUM CORRECTED 10.0 mg/dL 8.5-10.1 Automated blood complete blood count (he mogram) panel - 07/18/19 06:18 Blood leukocytes automated count (number/volume) 8.7 10*3/uL 4.3-11.0 Blood erythrocytes automated count (number/volume) 2.78 10*6/uL 4.35-5.85 Venous blood hemoglobin measurement (mass/volume) 8.3 g/dL 11.5-16.0 Blood hematocrit (volume fraction) 27 % 35-52 Automated erythrocyte mean corpuscular volume 96 [ foz_us] 80-99 Automated erythrocyte mean corpuscular h emoglobin (mass per erythrocyte) 30 pg 25-34 Automated erythrocyte mean corpuscular h emoglobin concentration measurement (mass/volume) 31 g/dL 32-36 Automated erythrocyte distribution width ratio 17. 3 % 10.0- 14.5 Automated blood platelet count (count/volume) 206 10*3/uL 130-400 Automated blood platelet mean volume measurement 12.0 [foz_us] 7.4-10.4 Serum or plasma creatinine measurement ( mass/volume) - 07/18/19 06:18 Serum or plasma creatinine measurement (mass/volume) 1.66 mg/dL 0.60-1.30 Complete urinalysis with reflex to cultu re - 09/11/19 07:02 Urine color determination YELLOW NRG Urine clarity determination SL CLOUDY N RG Urine pH measurement by test strip 5.5 5-9 Specific gravity of urine by test strip 1.020 1.016-1.022 Urine protein assay by test strip, semi-quantitative TRACE NEGATIVE Urine glucose detection by automated test strip NE GATIVE NEGATIVE Erythrocytes detection in urine sediment by light micr oscopy NEGATIVE NEGATIVE Urine ketones detection by automated test strip NE GATIVE NEGATIVE Urine nitrite detection by test strip POSITIVE NEGATIVE Urine total bilirubin detection by test strip NEGA TIVE NEGATIVE Urine urobilinogen measurement by automated test strip (mass/volume) 0.2 mg/dL < = 1.0 Urine leukocyte esterase detection by dipstick 2+ NEGATIVE Automated urine sediment erythrocyte cou nt by microscopy (number/high power field) NONE NRG Automated urine sediment leukocyte count by microscopy (number/high power field) [HPF] NRG Bacteria detection in urine sediment by light microsco py MODERATE NRG Squamous epithelial cells detection in u rine sediment by light microscopy 0-2 NRG Crystals detection in urine sediment by light microsco py NONE NRG Casts detection in urine sediment by light microscopy NONE NRG Mucus detection in urine sediment by light microscopy NEGATIVE NRG Complete urinalysis with reflex to culture YES NRG Bacterial urine culture - 09/11/19 07:02 Bacterial urine culture SEE COMMEN NRG COLONY COUNT . NRG FTX;REPORTABLE SUSCEPTIBILITY REPORTED 09/14 12:00 NRG FREE TEXT ENTRY 2 PRELIM RAPID ID TEST AT [facility] 09/12 9:25 NRG FREE TEXT ENTRY 3 RML CONFIRMED ID 09/12/19 15:05 NRG FREE TEXT ENTRY 4 ESBL POSITIVE NRG Dirithromycin susceptibility test by dis k diffusion - 09/11/19 07:02 Gentamicin susceptibility test by minimum inhibitory c oncentration <= NRG Trimethoprim/sulfamethoxazole susceptibi lity test by minimum inhibitoryconcentration <= NRG Levofloxacin susceptibility test by minimum inhibitory concentration <= NRG Ampicillin susceptibility test by minimum inhibitory c oncentration > NRG Cefazolin susceptibility test by minimum inhibitory co ncentration > NRG Ceftriaxone susceptibility test by minimum inhibitory concentration > NRG Ciprofloxacin susceptibility test by minimum inhibitor y concentration <= NRG Meropenem susceptibility test by minimum inhibitory co ncentration <= NRG Nitrofurantoin susceptibility test by mi nimum inhibitory concentration > NRG Amoxicillin and clavulanate potassium susc FRANKLIN R NRG Automated blood complete blood count (he mogram) panel - 09/11/19 07:18 Blood leukocytes automated count (number/volume) 9.7 10*3/uL 4.3-11.0 Blood erythrocytes automated count (number/volume) 3.12 10*6/uL 4.35-5.85 Venous blood hemoglobin measurement (mass/volume) 9.6 g/dL 11.5-16.0 Blood hematocrit (volume fraction) 31 % 35-52 Automated erythrocyte mean corpuscular volume 98 [ foz_us] 80-99 Automated erythrocyte mean corpuscular h emoglobin (mass per erythrocyte) 31 pg 25-34 Automated erythrocyte mean corpuscular h emoglobin concentration measurement (mass/volume) 32 g/dL 32-36 Automated erythrocyte distribution width ratio 15. 5 % 10.0- 14.5 Automated blood platelet count (count/volume) 253 10*3/uL 130-400 Automated blood platelet mean volume measurement 11.6 [foz_us] 7.4-10.4 PT panel in platelet poor plasma by coag ulation assay - 09/11/19 07:18 Prothrombin time (PT) in platelet poor plasma by coagu lation assay 13.7 s 12.2-14.7 INR in platelet poor plasma or blood by coagulation as say 1.0 0.8-1.4 Activated partial thromboplastin time (a PTT) in platelet poor plasma bycoagulation assay - 09/11/19 07:18 Activated partial thromboplastin time (a PTT) in platelet poor plasma bycoagulation assay 29 s 24-35 Comprehensive metabolic panel - 09/11/19 07:18 Serum or plasma sodium measurement (moles/volume) 141 mmol/L 135-145 Serum or plasma potassium measurement (moles/volume) 4.8 mmol/L 3.6-5.0 Serum or plasma chloride measurement (moles/volume) 109 mmol/L 98-107 Carbon dioxide 22 mmol/L 21-32 Serum or plasma anion gap determination (moles/volume) 10 mmol/L 5-14 Serum or plasma urea nitrogen measurement (mass/volume ) 60 mg/dL 7-18 Serum or plasma creatinine measurement (mass/volume) 1.85 mg/dL 0.60-1.30 Serum or plasma urea nitrogen/creatinine mass ratio 32 NRG Serum or plasma creatinine measurement w ith calculation of estimated glomerular filtration rate 26 NRG Serum or plasma glucose measurement (mass/volume) 95 mg/dL 70-105 Serum or plasma calcium measurement (mass/volume) 9.0 mg/dL 8.5-10.1 Serum or plasma total bilirubin measurement (mass/volu me) 0.3 mg/dL 0.1-1.0 Serum or plasma alkaline phosphatase ca surement (enzymatic activity/volume) 152 U/L 40-136 Serum or plasma aspartate aminotransfera se measurement (enzymatic activity/volume) 15 U/L 5-34 Serum or plasma alanine aminotransferase measurement (enzymatic activity/volume) 14 U/L 0-55 Serum or plasma protein measurement (mass/volume) 6.7 g/dL 6.4-8.2 Serum or plasma albumin measurement (mass/volume) 4.2 g/dL 3.2-4.5 CALCIUM CORRECTED 8.8 mg/dL 8.5-10.1 Lipid 1996 panel - 09/11/19 07:18 Serum or plasma triglyceride measurement (mass/volume) 80 mg/dL <150 Serum or plasma cholesterol measurement (mass/volume) 144 mg/dL < 200 Serum or plasma cholesterol in HDL measurement (mass/v olume) 47 mg/dL 40-60 Cholesterol in LDL [mass/volume] in serum or plasma by direct assay 79 mg/dL 1-129 Serum or plasma cholesterol in VLDL measurement (mass/ volume) 16 mg/dL 5-40 Methicillin resistant Staphylococcus aur eus (MRSA) screening culture - 09/11/19 07:18 Methicillin resistant Staphylococcus aureus (MRSA) scr eening culture NEG NRG Coronavirus SARS-CoV-2 SO 2019 - 0 07:50 Coronavirus Ab [Units/volume] in Serum Negative Negative Encounters ACCT No. Visit Date/Time Discharge Status Pt. Type Provider Facility Loc./Unit Complaint [id number] 02/13/2020 05:34:00 020 14:44:00 DIS Outpatient NAJMA MALCOLM DO Via [facility] PREOP COLONOSCOPY [id number] 01/06/2020 08:55:00 00:01:00 DIS Outpatient MADYSON HERMAN MD [facility] REHAB SPINAL STENOSIS; LUMBAR REGION; R SIDE SCIATICA [id number] 09/05/2019 14:21:00 00:01:00 DIS Outpatient MAGNUS GIFFORD, BLAINE diallo [facility] ONC [id number] 09/11/2019 06:37:00 14:55:00 DIS Outpatient HAL DOUGLAS MD [facility] CATH ABN STRESS,CHF,CAD,AF,H TN,HLP [id number] 09/06/2019 06:48:00 020 23:59:59 CLS Outpatient HAL DOUGLAS MD [facility] CARD HTN [id number] 06/27/2019 12:45:00 11:10:00 DIS Inpatient NEWELL DO, MATT V ia [facility] IRF DISUSE MYOPATHY [id number] 05/27/2019 15:22:00 019 10:37:00 DIS Inpatient MADYSON HERMAN MD Via [facility] ICU DIVERTICULITIS,N/V,ABD PAIN,UTI,ILEUS S/P R THR [id number] 02/22/2019 09:18:00 23:59:59 CLS Outpatient MADYSON HERMAN MD [facility] CARD BLE EDEMA [id number] 11/19/2018 15:06:00 019 23:59:59 CLS Preadmit MADYSON HERMAN MD [facility] RAD LUMBAR STENOSIS W/ ULI DICATION [id number] 11/03/2017 10:00:00 018 10:38:00 DIS Outpatient JACQUELINE ARANA APRN [facility] SLEEP SNORING, EDS [id number] 09/11/2017 12:03:00 018 23:59:59 CLS Preadmit JACQUELINE ARANA APRN [facility] RAD SNORING [id number] 08/30/2017 20:57:00 018 05:20:00 DIS Outpatient JACQUELINE ARANA APRN Via [facility] SLEEP G47.33 OBSTRUCTIVE SLE EP APNEA [id number] 03/22/2017 07:59:00 017 23:59:59 CLS Outpatient ALEYDA MORALESMLESLIE Q [facility] RAD PERONEAL TENONITIS [id number] 06/06/2016 13:14:00 016 14:40:00 DIS Outpatient CHRISTI EDWARDS MD Via [facility] CARD DISC DISORDER [id number] 12/11/2015 07:23:00 016 08:10:00 DIS Outpatient CHRISTI EDWARDS MD [facility] CARD DISC DISORDER W/RADICUL OPATHY [id number] 09/16/2015 08:37:00 016 23:59:59 CLS Outpatient ENMA JIMENEZ [facility] RAD STENOSIS [id number] 12/19/2014 07:09:00 015 08:06:00 DIS Outpatient CHRISTI EDWARDS MD [facility] CARD DDD [id number] 12/08/2014 09:06:00 015 23:59:59 CLS Outpatient CHRISTI EDWARDS MD [facility] RAD DEGENERATIVE DISC DISEA SE,LUMBAR [id number] 09/16/2013 13:44:00 014 23:59:59 CLS Outpatient JERONIMO GIFFORD, BOLA Garcia [facility] RAD RENAL INSUFF [id number] 02/18/2020 10:20:00 P EN Preadmit NAJMA MALCOLM DO Via [facility] ENDO HX OF PERFORATION [id number] 02/17/2020 10:55:[address] Outpatient MADYSON HERMAN MD [facility] REHAB SPINAL STENOSIS; LUMBAR MAURA ON; R SIDE SCIATICA [id number] 12/05/2019 00:00:00 Document Registration [id number] 06/21/2011 07:20:00 Document Registration [id number] 06/01/2011 13:27:00 Document Registration
--- NOTE | 2020-02-19 09:12 | Progress Note-Pre Operative ---
Pre-Operative Progress Note H&P Reviewed The H&P was reviewed, patient examined and no changes noted. Date Seen by Provider: Feb 19, 2020 Time Seen by Provider: 09:12 Date H&P Reviewed: Feb 19, 2020 Time H&P Reviewed: 09:12 Pre-Operative Diagnosis: colostomy, history of perforation NAJMA MALCOLM DO Feb 19, 2020 09:12
--- NOTE | 2020-02-19 09:51 | Progress Note-Post Operative ---
Post-Operative Progess Note Surgeon (s)/Customer Development Manager (s) Surgeon NAJAM MALCOLM DO Customer Development Manager: na Pre-Operative Diagnosis colostomy, history of perforation Post-Operative Diagnosis normal colon, minimal diversion colitis Procedure & Operative Findings Date of Procedure 02/19/20 Procedure Performed/Findings colonoscopy Anesthesia Type per [facility] Estimated Blood Loss Estimated blood loss (mL): scant Specimens/Packing Specimens Removed na NAJMA MALCOLM DO Feb 19, 2020 09:51
--- NOTE | 2020-02-19 10:47 | Anesthesia-General Post-Op ---
MAC Patient Condition Mental Status/LOC: Same as Preop Cardiovascular: Satisfactory Nausea/Vomiting: Absent Respiratory: Satisfactory Pain: Controlled Complications: Absent Post Op Complications Complications None Follow Up Care/Instructions Patient Instructions None needed. Anesthesiology Discharge Order Discharge Order Patient was seen after the procedure and she was doing well, no complaints, stable vital signs, no apparent adverse anesthesia problems. ROCKY OVERTON DO Feb 19, 2020 10:47
--- NOTE | 2020-02-19 11:47 | OPERATIVE REPORT ---
DATE OF SERVICE: 02/19/2020 PREOPERATIVE DIAGNOSIS: Colostomy with history of perforation. POSTOPERATIVE DIAGNOSES: 1. Normal colon. 2. Minimal diversion colitis. PROCEDURE: Colonoscopy. SURGEON: Najma Santos DO ANESTHESIA: Per MDA. ESTIMATED BLOOD LOSS: Scant. COMPLICATIONS: None. INDICATIONS: The patient is an 79-year-old female with colostomy due to history of perforation. She understands risks and benefits of procedure and wished to proceed with procedure. Consent was signed in the chart. DESCRIPTION OF PROCEDURE: The patient was taken to the endoscopy suite, placed in the supine position. Timeout was performed. The colostomy was dilated digitally, and the scope was inserted all the way to the cecum with minimal difficulty. Prep was adequate. Scope was then slowly retracted back. There were no polyps, masses or ulcerations within the cecum, ascending, transverse, descending and sigmoid colon. The patient was then placed in left lateral recumbent position. Digital rectal exam was performed. There was mucus/stool plug present, which was evacuated digitally. The patient did have previous Fleets enema just prior to procedure. This was evacuated and the scope was then inserted and some slight irritation consistent with some diversion colitis. Scope was then inserted and advanced not noting to the stapled off end. No apparent polyps, masses or ulcerations were visualized. Scope was then continued to be slowly retracted back until in the rectal vault, it was also retroflexed noting no other pathology. Scope was returned to its normal position, slowly withdrawn until completely removed. The patient tolerated procedure well without any complications. She was taken to recovery room in stable condition. RECOMMENDATIONS: The patient has an adequate length for reanastomosis. No pathology found at this time. We will discuss proceeding with colostomy reversal. Job ID: [id number] DocumentID: [id number] Dictated Date: 02/19/2020 09:54:15 [employer] Date: 02/19/2020 11:46:13 Dictated By: NAJMA SANTOS DO
== END | disposition home or self-care (01) ==
LOC: ENDO 07:51
PROVIDERS: ATTEND Surgery
DX: Z12.11 Encounter for screening for malignant neoplasm of colon (principal); K52.9 Noninfective gastroenteritis and colitis, unspecified; Z93.3 Colostomy status; Z87.19 Personal history of other diseases of the digestive system; I48.91 Unspecified atrial fibrillation; I11.0 Hypertensive heart disease with heart failure; I50.9 Heart failure, unspecified; I47.1 Supraventricular tachycardia; I25.2 Old myocardial infarction; E66.9 Obesity, unspecified; E03.9 Hypothyroidism, unspecified; M19.90 Unspecified osteoarthritis, unspecified site; Z68.37 Body mass index [BMI] 37.0-37.9, adult; Z87.891 Personal history of nicotine dependence; Z88.2 Allergy status to sulfonamides; Z90.710 Acquired absence of both cervix and uterus; Z96.659 Presence of unspecified artificial knee joint

== ENCOUNTER 2020-03-17 14:50 | Outpatient (RCR) | payer MEDICARE, OTHER ==
[~2020-03-17 14:50] MED LIST changes: -ESMOLOL 100 MG/10 ML (BREVIBLOC) VIAL ONE; -FLEET ENEMA ADULT 1 EA BTL ONE; -LACTATED RINGERS 1,000 ML IV STA; -MIDAZOLAM 2 MG/2 ML (VERSED) VIAL ONE; -proPOfol 200 MG/20 ML (DIPRIVAN) VIAL IV ONE
== END 2020-04-09 | disposition home or self-care (01) ==
PROVIDERS: ATTEND Family Medicine
DX: M48.061 Spinal stenosis, lumbar region without neurogenic claudication (principal); I10 Essential (primary) hypertension

== ENCOUNTER 2020-04-07 05:30 | Outpatient (RCR) | payer MEDICARE, OTHER ==
[~2020-04-07] VITALS: Ht 154 cm; Wt 95.4 kg
== END 2020-04-07 13:45 | disposition home or self-care (01) ==
LOC: PREOP 05:30
PROVIDERS: ATTEND Surgery
DX: Z01.818 Encounter for other preprocedural examination (principal); Z20.828 Contact with and (suspected) exposure to other viral communicable diseases
CPT/HCPCS: 87635

== ENCOUNTER 2020-04-09 05:59 | Inpatient (IN) | payer MEDICARE, OTHER ==
[2020-04-09] VITALS (22 sets, daily range): BP systolic 79–181; BP diastolic 38–76
[~2020-04-09] VITALS: Ht 154 cm; Wt 95.4 kg
--- OUTSIDE RECORDS SUMMARY | 2020-04-09 06:06 | XMS REPORT | Continuity of Care Document ---
Author Author [facility] Address Unknown Phone Unavailable Care Team Providers Care Customer Solutions Coordinator Name Role Phone [facility] Unavailable Unavailable Problems No Data Provided for This Section Medications Combined list of all outpatient medications recorded within the last 15 months b y all [facility] and [facility] facilities, and also all [facility] t-reported medications. Medication Details Route Status Patient Instructions Prescription Expires Prescript ion Number Last Dispense Date Ordering Pr ovider Order Date Source AMITRIPTYLINE HCL (AMITRIPTYLINE HCL), 1 0MG, TABLET, ORAL, S[facility]OZ, 1000 ea. BOTTLE Active [id number] 11/04/2019 [facility]/04[facility]2019 [facility] AMITRIPTYLINE HCL (AMITRIPTYLINE HCL), 1 0MG, TABLET, ORAL, SANDOZ, 1000 ea. BOTTLE Active [id number] 02/02/2020 [facility] 02/02/2020 [facility] AZITHROMYCIN (azithromycin), 250 MG, TAB LET, ORAL, [employer] 6 ea. BLIST PACK Active [id number] 10/22/2019 [facility], 10/23/2019 [facility] AZITHROMYCIN (azithromycin), 250 MG, TAB LET, ORAL, [employer] 6 ea. BLIST PACK Active [id number] 10/15/2019 [facility], 10/17/2019 [facility] BUMETANIDE (bumetanide), 1 MG, TABLET, O RAL, [facility], 100 ea. BOTTLE Active [id number] 09/13/2019 [facility] 09/14/2019 [facility] BUMETANIDE (bumetanide), 1 MG, TABLET, O RAL, [facility], 100 ea. BOTTLE Active [id number] 07/19/2019 [facility] 07/19/2019 [facility] BUMETANIDE (bumetanide), 1 MG, TABLET, O RAL, [facility], 500 ea. BOTTLE Active [id number] 12/19/2019 [facility] 12/25/2019 [facility] BUMETANIDE (bumetanide), 1 MG, TABLET, O RAL, [facility], 500 ea. BOTTLE Active [id number] 03/11/2020 [facility] BUMETANIDE (BUMETANIDE), 1MG, TABLET, OR AL, [facility], 100 ea. BOTTLE Active [id number] 08/01/2019 [facility] 08/03/2019 [facility] CIPROFLOXACIN HCL (ciprofloxacin HCl), 0 .3 %, DROPS, OPHTHALMIC, [employer] [facility], 10 ml DROP BTL Active [id number] 03/25/2020 [facility], 03/28/2020 [facility] CIPROFLOXACIN HCL (CIPROFLOXACIN HCL), 2 50 MG, TABLET, ORAL, PACK [facility]ARM[facility], 100 ea. BOTTLE Active [id number] 09/16/2019 [facility], 09/20/2019 [facility] ERYTHROMYCIN (erythromycin base), 250 MG , TABLET DR, ORAL, [facility], 30 ea. BOTTLE Active [id number] 03/27/2020 [place], 03/31/2020 [facility] FLUTICASONE PROPIONATE (FLUTICASONE PROP IONATE), 50MCG, SPRAY SUSP, NASAL, [facility] 16 g AER W/ADAP Active [id number] 03/25/2020 [facility], 03/27/2020 [facility] FUROSEMIDE (furosemide), 20 MG, TABLET, ORAL, [employer] 1000 ea. BOTTLE Active [id number] 11/19[facility] FUROSEMIDE (FUROSEMIDE), 20MG, TABLET, O RAL, MYLAN, 1000 ea. BOTTLE Active [id number] 09/05/2019 [facility], 09/07/2019 [facility] FUROSEMIDE (FUROSEMIDE), 20MG, TABLET, O RAL, MYLAN, 1000 ea. BOTTLE Active [id number] 09/28/2019 [facility], 09/28/2019 [facility] FUROSEMIDE (FUROSEMIDE), 40MG, TABLET, O RAL, [facility] 1000 ea. BOTTLE Active [id number] 06/12/2019 [facility] 06/19/2019 [facility] GABAPENTIN (GABAPENTIN), 300 MG, CAPSULE , ORAL, [facility], 500 ea. BOTTLE Active [id number] 07/19/2019 [facility], 07/19/2019 [facility] GABAPENTIN (gabapentin), 300 MG, CAPSULE , ORAL, [facility]ARMACE, 500 ea. BOTTLE Active [id number] 03/16/2020 [facility] 03/[facility]2020 [facility] GABAPENTIN (gabapentin), 300 MG, CAPSULE , ORAL, [employer] 1000 ea. BOTTLE Active [id number] 07/24/2019 [facility] 07/24/2019 [facility] GABAPENTIN (gabapentin), 300 MG, CAPSULE , ORAL, [employer] 1000 ea. BOTTLE Active [id number] 11/19/2019 [facility] 11/22/2019 [facility] GUAIFENESIN-CODEINE (codeine phosphate/g uaifenesin), 10-100MG/5, LIQUID, ORAL, PHARMACEUTICAL, 237 ml BOTTLE Active [id number] 10/15/2019 [facility], 10/17/2019 [facility] HYDROCODONE-ACETAMINOPHEN (HYDROCODONE/A CETAMINOPHEN), 5MG-325MG, TABLET, ORAL, [facility], 500 ea. BOTTLE Active [id number] [facility] 06/14/2019 [facility] HYDROCODONE-ACETAMINOPHEN (HYDROCODONE/A CETAMINOPHEN), 5MG-325MG, TABLET, ORAL, MALLINCKRODT PH, 500 ea. BOTTLE Active [id number] [facility], 03/23/2019 [facility] LEVOFLOXACIN (LEVOFLOXACIN), 250 MG, TAB LET, ORAL, [facility], 50 ea. BOTTLE Active [id number] 03/11/2019 [facility], 03/12/2019 [facility] LEVOTHYROXINE SODIUM (LEVOTHYROXINE SODI UM), 50MCG, TABLET, ORAL, MYLAN, 1000 ea. BOTTLE Active [id number] 12/19/2019 [facility] 12/25/2019 [facility] LEVOTHYROXINE SODIUM (LEVOTHYROXINE SODI UM), 50MCG, TABLET, ORAL, MYLAN, 1000 ea. BOTTLE Active [id number] 03/16/2020 [facility] 03/19/2020 [facility] LIDOCAINE (LIDOCAINE), 5%(700MG), ADH. P ATCH, TOPICAL, [employer] [facility]ARMA,, 30 ea. BOX Active [id number] 07/19/2019 [facility], 07/19/2019 [facility] LISINOPRIL (LISINOPRIL), 10 MG, TABLET, ORAL, EXEL[facility] PHARMACE, 1000 ea. BOTTLE Active [id number] 04/06/2020 [facility] 04/07/2020 [facility] LISINOPRIL (LISINOPRIL), 10 MG, TABLET, ORAL, EXELAN PHARMACE, 1000 ea. BOTTLE Active [id number] 04/09/2019 [facility] 06/01/2019 [facility] LISINOPRIL (LISINOPRIL), 10 MG, TABLET, ORAL, EXEL[employer] PHARMACE, 1000 ea. BOTTLE Active [id number] 07/08/2019 [facility] 07/09/2019 [facility] LISINOPRIL (LISINOPRIL), 10 MG, TABLET, ORAL, [employer]EL[employer] PHARMACE, 1000 ea. BOTTLE Active [id number] 10/06/2019 [facility] 10/06/2019 [facility] LISINOPRIL (LISINOPRIL), 10 MG, TABLET, ORAL, [employer]EL[employer] PHARMACE, 1000 ea. BOTTLE Active [id number] 01/04/2020 [facility] 01/04/2020 [facility] METOPROLOL SUCCINATE (metoprolol succina te), 25 MG, TAB ER 24H, ORAL, INGENUS [facility]ARMAC, 1000 ea. BOTTLE Active [id number] 09/05/2019 [facility], 09/07/2019 [facility] METOPROLOL SUCCINATE (metoprolol succina te), 25 MG, TAB ER 24H, ORAL, INGENUS PHARMAC, 1000 ea. BOTTLE Active [id number] 09/28/2019 [facility], 09/28/2019 [facility] NEOMYCIN SULFATE (NEOMYCIN SULFATE), 500 MG, TABLET, ORAL, [employer], 100 ea. BOTTLE Active [id number] 03/27/2020 [place], 03/30/2020 [facility] POTASSIUM CHLORIDE (potassium chloride), 20 MEQ, TAB ER PRT, ORAL, [employer], 500 ea. BOTTLE Active [id number] 06/12/2019 [facility] 06/19/2019 [facility] SIMVASTATIN (SIMVASTATIN), 40 MG, TABLET , ORAL, [facility], 1000 ea. BOTTLE Active [id number] 02/24/2020 [facility] 02/25/2020 [facility] SIMVASTATIN (SIMVASTATIN), 40 MG, TABLET , ORAL, [facility], 1000 ea. BOTTLE Active [id number] 08/27/2019 [facility] 08/28/2019 [facility] SIMVASTATIN (SIMVASTATIN), 40 MG, TABLET , ORAL, [facility] RX, 1000 ea. BOTTLE Active [id number] 11/25/2019 [facility] 11/26/2019 [facility] TIMOLOL MALEATE (TIMOLOL MALEATE), 0.5%, DROPS, OPHTHALMIC, [employer] 5 ml DROP BTL Active [id number] 03/16/2020 [facility] 03/20/2020 [facility] TIMOLOL MALEATE (TIMOLOL MALEATE), 0.5%, DROPS, OPHTHALMIC, [facility]ARM, 10 ml DROP BTL Active [id number] 12/11/2019 [facility] 12/13/2019 [facility] TIMOLOL MALEATE (TIMOLOL MALEATE), 0.5%, DROPS, OPHTHALMIC, [facility]ARM, 10 ml DROP BTL Active [id number] 03/16/2020 [facility] 03/19/2020 [facility] TIMOLOL MALEATE (TIMOLOL MALEATE), 0.5%, DROPS, OPHTHALMIC, [facility] [facility], 5 ml DROP BTL Active [id number] 11/19/2019 [facility] 11/23/2019 [facility] TIMOLOL MALEATE (TIMOLOL MALEATE), 0.5%, DROPS, OPHTHALMIC, R[employer] PHARM, 5 ml DROP BTL Active [id number] 10/29/2019 [facility] 10/30/2019 [facility] TOPROL XL (metoprolol succinate), 25 MG, TAB ER 24H, ORAL, [employer], 1000 ea. BOTTLE Active [id number] 11/19/2019 [facility] 11/22/2019 [facility] TOPROL XL (metoprolol succinate), 25 MG, TAB ER 24H, ORAL, ARALEZ[employer], 1000 ea. BOTTLE Active [id number] 02/02/2020 [facility] 02/02/2020 [facility] TRAVATAN Z (TRAVOPROST), 0.004%, DROPS, OPHTHALMIC, [facility]., 2.5 ml DROP BTL Active [id number] 10/29/2019 [facility] 10/30/2019 [facility] TRAVATAN Z (TRAVOPROST), 0.004%, DROPS, OPHTHALMIC, [facility] 2.5 ml DROP BTL Active [id number] 04/09/2019 [facility] 06/02/2019 [facility] TRIAMCINOLONE ACETONIDE (TRIAMCINOLONE A CETONIDE), 0.1%, CREAM(GM), TOPICAL, [employer] 15 g TUBE Active [id number] 02/18/2019 [facility] 02/19/2019 [facility] TRIAMCINOLONE ACETONIDE (TRIAMCINOLONE A CETONIDE), 0.1%, CREAM(GM), TOPICAL, [employer] 15 g TUBE Active [id number] 08/30/2019 [facility] 08/30/2019 [facility] Allergies, Adverse [...]
--- OUTSIDE RECORDS SUMMARY | 2020-04-09 06:07 | XMS REPORT | Continuity of Care Document ---
Author Organization Unknown Address Unknown Phone Unavailable Allergies Active Description Code Type Severity Reaction Onset Reported/Identified Relationship to Patient Clinical Status Yes SULFA SULFA Unknown N/A 05/27/2019 Yes Sulfa (Sulfonamide Antibiotics) [id number] Drug Allergy Unknown N/A 019 Yes Sulfa (Sulfonamide Antibiotics) [id number] 0491 Drug Allergy Mild ITCHING/SWOLLEN 04/06/2020 Medications There is no data. Problems Date Dx Coded Attending Type Code Diagnosis Diagnosed By 07/27/1344 NAJMA MALCOLM DO Ot Z01.818 ENCOUNTER FOR OTHER PREPROCEDURAL EXAMIN 07/27/1344 NAJMA MALCOLM DO Ot Z20.828 CONTACT W AND EXPOSURE TO OTH VIRAL COMM 07/27/1443 NAJMA MALCOLM DO Ot Z01.818 ENCOUNTER [...] 12/19/2014 CHRISTI EDWARDS MD Ot V58. 69 OTH MED,LT,CURRENT USE 12/29/2014 CHRISTI EDWARDS MD Ot 722. 52 01/21/2015 CHRISTI EDWARDS MD Ot 722. 52 01/25/2015 CHRISTI EDWARDS MD Ot 722. 52 09/16/2015 BOLA DECKER MD Ot 593.9 09/16/2015 CHRISTI EDWARDS MD Ot 722. 52 10/09/2015 ENMA JIMENEZ Ot I65.22 11/06/2015 ENMA JIMENEZ Ot I65.22 12/11/2015 BOLA DECKER MD Ot 593.9 RENAL URETERAL DIS NOS 12/11/2015 CHRISTI EDWARDS MD, Ot 722. 52 LUMB/LUMBOSAC DISC DEGEN 12/11/2015 ENMA JIMENEZ Ot I65.22 OCCLUSION AND STENOSIS OF LEFT CAROTID A 12/11/2015 CHRISTI EDWARDS MD, Ot M51. 16 INTERVERTEBRAL DISC DISORDERS W RADICULO 12/11/2015 CHRISTI EDWARDS MD, Ot Z79.899 OTHER EGG PACKER (CURRENT) DRUG THERAPY 12/23/2015 CHRISTI EDWARDS MD, Ot M51. 16 INTERVERTEBRAL DISC DISORDERS W RADICULO 12/23/2015 CHRISTI EDWARDS MD, Ot Z79.899 OTHER EGG PACKER (CURRENT) DRUG THERAPY 06/06/2016 BOLA DECKER MD Ot 593.9 RENAL URETERAL DIS NOS 06/06/2016 CHRISTI EDWARDS MD, Ot 722. 52 LUMB/LUMBOSAC DISC DEGEN 06/06/2016 ENMA JIMENEZ Ot I65.22 OCCLUSION AND STENOSIS OF LEFT CAROTID A 06/06/2016 CHRISTI EDWARDS MD, Ot M51. 16 INTERVERTEBRAL [...] G47.33 OBSTRUCTIVE SLEEP APNEA (ADULT) (PEDIATR 08/29/2017 SUMIT, JACQUELINE R RECORDS MANAGEMENT ENGINEER Ot G47.33 OBSTRUCTIVE SLEEP APNEA (ADULT) (PEDIATR 08/31/2017 SUMIT, JACQUELINE R RECORDS MANAGEMENT ENGINEER Ot G47.33 OBSTRUCTIVE SLEEP APNEA (ADULT) (PEDIATR 09/05/2017 SUMIT, JACQUELINE R RECORDS MANAGEMENT ENGINEER Ot G47.33 OBSTRUCTIVE SLEEP APNEA (ADULT) (PEDIATR 11/03/2017 SUMIT, JACQUELINE R RECORDS MANAGEMENT ENGINEER Ot G47.10 HYPERSOMNIA, UNSPECIFIED 11/03/2017 SUMIT, JACQUELINE R RECORDS MANAGEMENT ENGINEER Ot G47.33 OBSTRUCTIVE SLEEP APNEA (ADULT) (PEDIATR 11/03/2017 SUMIT, JACQUELINE R RECORDS MANAGEMENT ENGINEER Ot R06.83 SNORING 11/07/2017 SUMIT, JACQUELINE R RECORDS MANAGEMENT ENGINEER Ot G47.10 HYPERSOMNIA, UNSPECIFIED 11/07/2017 SUMIT, JACQUELINE R RECORDS MANAGEMENT ENGINEER Ot G47.33 OBSTRUCTIVE SLEEP APNEA (ADULT) (PEDIATR 11/07/2017 SUMIT, JACQUELINE R RECORDS MANAGEMENT ENGINEER Ot R06.83 SNORING 11/07/2017 SUMIT, JACQUELINE R RECORDS MANAGEMENT ENGINEER Ot G47.10 HYPERSOMNIA, UNSPECIFIED 11/07/2017 SUMIT, JACQUELINE R RECORDS MANAGEMENT ENGINEER Ot G47.33 OBSTRUCTIVE SLEEP APNEA (ADULT) (PEDIATR 11/07/2017 SUMIT, JACQUELINE R RECORDS MANAGEMENT ENGINEER Ot R06.83 SNORING 02/22/2019 JERONIMO GIFFORD, BOLA Garcia Ot 593.9 RENAL URETERAL DIS NOS 02/22/2019 JERRY GIFFORD, CHRISTI Brown Ot 722. 52 LUMB/LUMBOSAC DISC DEGEN 02/22/2019 ENMA JIMENEZ Ot I65.22 OCCLUSION AND STENOSIS OF LEFT CAROTID A 02/22/2019 ALEYDA DPM, LESLIE Q Ot M19.071 PRIMARY OSTEOARTHRITIS, RIGHT ANKLE AND 02/22/2019 ALEYDA DPM, LESLIE Q Ot M76. 71 PERONEAL TENDINITIS, RIGHT LEG 02/26/2019 VIRGIL GIFFORD, MADYSON Ruelas Ot R60. 0 LOCALIZED EDEMA 03/15/2019 VIRGIL GIFFORD, MADYSON Ruelas Ot R60. 0 LOCALIZED EDEMA 05/28/2019 JERRY GIFFORD, CHRISTI Brown Ot 722. 52 LUMB/LUMBOSAC DISC DEGEN 05/28/2019 [...] KIDNEY DISEASE W ST 05/30/2019 MADYSON HERMAN MD, Ot K42. 9 UMBILICAL [...] Ot M54. 9 DORSALGIA, UNSPECIFIED 05/31/2019 MADYSON HREMAN MD Ot M79.604 PAIN IN RIGHT LEG [...] K56. 7 ILEUS, UNSPECIFIED 05/31/2019 MADYSON HERMAN MD, Ot K57. 32 DVTRCLI OF LG INT [...] ACUTE KIDNEY FAILURE, UNSPECIFIED 06/01/2019 MADYSON HERMAN MD Ot N18. 9 CHRONIC KIDNEY DISEASE, UNSPECIFIED 06/01/2019 MADYSON HERMAN MD Ot N30. 01 ACUTE [...] PAIN IN RIGHT LEG 06/02/2019 MADYSON HERMAN MD, Ot N17. 9 ACUTE KIDNEY FAILURE, UNSPECIFIED 06/02/2019 MADYSON HERMAN MD, Ot N18. 9 CHRONIC KIDNEY DISEASE, UNSPECIFIED 06/02/2019 MADYSON HERMAN MD, Ot N30. 01 ACUTE CYSTITIS WITH HEMATURIA 06/02/2019 MADYSON HERMAN MD Ot R11. 14 BILIOUS VOMITING 06/02/2019 MADYSON HERMAN MD, Ot T40.2X5A ADVERSE EFFECT OF OTHER OPIOIDS, INITIAL 06/02/2019 MADYSON HERMAN MD, Ot Z96.641 PRESENCE OF RIGHT ARTIFICIAL HIP JOINT 06/02/2019 MADYSON HERMAN MD, Ot E03. 9 HYPOTHYROIDISM, UNSPECIFIED 06/02/2019 MADYSON HERMAN MD, Ot I12. 9 HYPERTENSIVE CHRONIC KIDNEY DISEASE W ST 06/02/2019 MADYSON HERMAN MD Ot K42. 9 UMBILICAL HERNIA WITHOUT OBSTRUCTION OR 06/02/2019 MADYSON HERMAN MD, Ot K52. 9 NONINFECTIVE GASTROENTERITIS AND COLITIS 06/02/2019 MADYSON HERMAN MD, Ot K56. 7 ILEUS, UNSPECIFIED 06/02/2019 MADYSON HERMAN MD, Ot K57. 32 DVTRCLI OF LG INT W/O PERFORATION OR ABS 06/02/2019 MADYSON HERMAN MD, Ot K59. 09 OTHER CONSTIPATION 06/02/2019 MADYSON HERMAN MD, Ot M54. 9 DORSALGIA, UNSPECIFIED 06/02/2019 MADYSON HERMAN MD, Ot M79.604 PAIN IN RIGHT LEG 06/02/2019 MADYSON HERMAN MD, Ot N17. 9 ACUTE KIDNEY FAILURE, UNSPECIFIED 06/02/2019 MADYSON HERMAN MD, Ot N18. 9 CHRONIC KIDNEY DISEASE, UNSPECIFIED 06/02/2019 MADYSON HERMAN MD, Ot N30. 01 ACUTE CYSTITIS WITH HEMATURIA 06/02/2019 MADYSON HERMAN MD, Ot R11. 14 BILIOUS VOMITING 06/02/2019 MADYSON [...] LG INT W/O PERFORATION OR ABS 06/03/2019 AMDYSON HERMAN MD Ot K59. 09 OTHER CONSTIPATION [...] PAIN IN RIGHT LEG 06/04/2019 MADYSON HERMAN MD, Ot N17. 9 ACUTE KIDNEY FAILURE, UNSPECIFIED 06/04/2019 MADYSON HERMAN MD, Ot N18. 9 CHRONIC KIDNEY DISEASE, UNSPECIFIED 06/04/2019 MADYSON HERMAN MD, Ot N30. 01 ACUTE CYSTITIS WITH HEMATURIA 06/04/2019 MADYSON HERMAN MD Ot R11. 14 BILIOUS VOMITING 06/04/2019 MADYSON HERMAN MD Ot T40.2X5A ADVERSE EFFECT OF OTHER OPIOIDS, INITIAL 06/04/2019 MADYSON HERMAN MD Ot Z96.641 PRESENCE OF RIGHT ARTIFICIAL HIP JOINT 06/04/2019 MADYSON HERMAN MD Ot E03. 9 HYPOTHYROIDISM, UNSPECIFIED 06/04/2019 MADYSON HERMAN MD, Ot I12. 9 HYPERTENSIVE CHRONIC KIDNEY DISEASE W ST 06/04/2019 MADYSON HERMAN MD, Ot K42. 9 UMBILICAL HERNIA WITHOUT OBSTRUCTION OR 06/04/2019 MADYSON HERMAN MD Ot K52. 9 NONINFECTIVE GASTROENTERITIS AND COLITIS 06/04/2019 MADYSON HERMAN MD Ot K56. 7 ILEUS, UNSPECIFIED 06/04/2019 MADYSON HERMAN MD Ot K57. 32 DVTRCLI OF LG INT W/O PERFORATION OR ABS 06/04/2019 MADYSON HERMAN MD, Ot K59. 09 OTHER CONSTIPATION 06/04/2019 MADYSON HERMAN MD Ot M54. 9 DORSALGIA, UNSPECIFIED 06/04/2019 MADYSON HERMAN MD Ot M79.604 PAIN IN RIGHT LEG 06/04/2019 MADYSON HERMAN MD, Ot N17. 9 ACUTE KIDNEY FAILURE, UNSPECIFIED 06/04/2019 MADYSON HERMAN MD, Ot N18. 9 CHRONIC KIDNEY DISEASE, UNSPECIFIED 06/04/2019 MADYSON HERMAN MD, Ot N30. 01 ACUTE [...] ACUTE CYSTITIS WITH HEMATURIA 06/05/2019 MADYSON HERMAN MD, Ot R11. 14 BILIOUS VOMITING 06/05/2019 MADYSON [...] E03. 9 HYPOTHYROIDISM, UNSPECIFIED 06/06/2019 MADYSON HERMAN MD Ot E86. 0 DEHYDRATION 06/06/2019 MADYSON HERMAN MD Ot E87. 2 ACIDOSIS 06/06/2019 MADYSON HERMAN MD Ot I12. 9 HYPERTENSIVE CHRONIC KIDNEY DISEASE W ST 06/06/2019 MADYSON HERMAN MD Ot I21. A1 MYOCARDIAL INFARCTION TYPE 2 06/06/2019 MADYSON HERMAN MD, Ot I25. 5 ISCHEMIC CARDIOMYOPATHY 06/06/2019 MADYSON HERMAN MD, Ot I48. 91 UNSPECIFIED ATRIAL FIBRILLATION 06/06/2019 MADYSON HERMAN MD Ot I95. 9 HYPOTENSION, UNSPECIFIED 06/06/2019 MADYSON HERMAN MD Ot J96. 01 ACUTE RESPIRATORY FAILURE WITH HYPOXIA 06/06/2019 MADYSON HERMAN MD Ot K37 UNSPECIFIED APPENDICITIS 06/06/2019 MADYSON HERMAN MD Ot K42. 9 UMBILICAL HERNIA WITHOUT OBSTRUCTION OR 06/06/2019 MADYSON HERMAN MD Ot K52. 9 NONINFECTIVE GASTROENTERITIS AND COLITIS 06/06/2019 MADYSON HERMAN MD, Ot K56. 50 INTESTNL ADHESIONS, UNSP TO PARTIAL V 06/06/2019 MADYSON HERMAN MD Ot K56. 7 ILEUS, UNSPECIFIED 06/06/2019 MADYSON HERMAN MD Ot K57. 20 DVTRCLI OF LG INT W PERFORATION AND ABSC 06/06/2019 MADYSON HERMAN MD Ot K59. 09 OTHER CONSTIPATION 06/06/2019 MADYSON HERMAN MD, Ot M54. 9 DORSALGIA, UNSPECIFIED 06/06/2019 MADYSON HERMAN MD, Ot M79.604 PAIN IN RIGHT LEG 06/06/2019 MADYSON HERMAN MD, Ot N17. 9 [...] J18. 1 LOBAR PNEUMONIA, UNSPECIFIED ORGANISM 06/06/2019 MADYSON HERMAN MD, Ot J96. 01 [...] ACUTE CYSTITIS WITH HEMATURIA 06/06/2019 MADYSON HERMAN MD Ot R11. 14 BILIOUS VOMITING 06/06/2019 MADYSON HERMAN MD, Ot R57. 0 CARDIOGENIC SHOCK 06/06/2019 MADYSON HERMAN MD, Ot R65. 21 SEVERE SEPSIS WITH SEPTIC SHOCK 06/06/2019 MADYSON HERMAN MD, Ot T40.2X5A ADVERSE EFFECT OF OTHER OPIOIDS, INITIAL 06/06/2019 MADYSON HERMAN MD, Ot Z23 ENCOUNTER FOR IMMUNIZATION 06/06/2019 MADYSON HERMAN MD Ot Z66 DO NOT RESUSCITATE 06/06/2019 MADYSON HERMAN MD, Ot Z96.641 PRESENCE OF RIGHT ARTIFICIAL HIP JOINT 06/27/2019 CHRISTI EDWARDS MD Ot 722. 52 LUMB/LUMBOSAC DISC DEGEN 06/27/2019 BARBARA ENMAPER MENENDEZ Ot I65.22 OCCLUSION AND STENOSIS OF LEFT CAROTID A 06/27/2019 ALEYDA DPM, LESLIE Q Ot M19.071 PRIMARY OSTEOARTHRITIS, RIGHT ANKLE AND 06/27/2019 ALEYDA DPM, LESLIE Q Ot M76. 71 PERONEAL TENDINITIS, RIGHT LEG 06/27/2019 VIRGIL GIFFORD, MADYSON C Ot R60. 0 LOCALIZED EDEMA 07/19/2019 NEWELL DO, MATT Ot D50.9 IRON DEFICIENCY ANEMIA, UNSPECIFIED 07/19/2019 NEWELL DO, MATT Ot D63.8 ANEMIA IN OTHER CHRONIC DISEASES CLASSIF 07/19/2019 REECE DO MATT Ot E03.9 HYPOTHYROIDISM, UNSPECIFIED 07/19/2019 NEWELL DO, MATT Ot E78.00 PURE HYPERCHOLESTEROLEMIA, UNSPECIFIED 07/19/2019 NEWELL DO MATT Ot E87.70 FLUID OVERLOAD, UNSPECIFIED 07/19/2019 REECE DO MATT Ot G62.9 POLYNEUROPATHY, UNSPECIFIED 07/19/2019 NEWELL DO MATT Ot G72.81 CRITICAL ILLNESS MYOPATHY 07/19/2019 REECE DO MATT Ot I13.0 HYP HRT CHR [place] DIS W HRT FAIL AND ST 07/19/2019 REECE DO MATT Ot I48.91 UNSPECIFIED ATRIAL FIBRILLATION 07/19/2019 REECE DO MATT Ot I50.22 CHRONIC SYSTOLIC (CONGESTIVE) HEART FAIL 07/19/2019 REECE DO MATT Ot K21.9 GASTRO-ESOPHAGEAL REFLUX DISEASE WITHOUT 07/19/2019 REECE DO MATT Ot L89.89 9 PRESSURE ULCER OF OTHER SITE, UNSPECIFIE 07/19/2019 REECE DO MATT Ot N17.9 ACUTE KIDNEY FAILURE, UNSPECIFIED 07/19/2019 REECE DO MATT Ot N18.9 CHRONIC KIDNEY DISEASE, UNSPECIFIED 07/19/2019 REECE DO MATT Ot R60.0 LOCALIZED EDEMA 07/19/2019 REECE DO MATT Ot 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 52 LUMB/LUMBOSAC DISC DEGEN 08/23/2019 BARBARA ENMAPER MENENDEZ Ot I65.22 OCCLUSION AND STENOSIS OF LEFT CAROTID A 08/23/2019 ALEYDA DPM, LESLIE Q Ot M19.071 PRIMARY OSTEOARTHRITIS, RIGHT ANKLE AND 08/23/2019 ALEYDA DPM, LESLIE Q Ot M76. 71 PERONEAL TENDINITIS, RIGHT LEG 08/23/2019 VIRGIL GIFFORD, MADYSON Ruelas Ot R60. 0 LOCALIZED EDEMA 09/09/2019 HAL DOUGLAS MD Ot E78. 2 MIXED HYPERLIPIDEMIA 09/09/2019 HAL DOUGLAS MD, Ot I08. 1 RHEUMATIC DISORDERS OF BOTH MITRAL AND T 09/09/2019 HAL DOUGLAS MD Ot I10 ESSENTIAL (PRIMARY) HYPERTENSION 09/09/2019 HAL DOUGLAS MD, Ot I21. 9 ACUTE MYOCARDIAL INFARCTION, UNSPECIFIED 09/09/2019 HAL DOUGLAS MD Ot I65. 29 OCCLUSION AND STENOSIS OF UNSPECIFIED CA 09/11/2019 HAL DOUGLAS MD Ot E03. 9 HYPOTHYROIDISM, UNSPECIFIED 09/11/2019 HAL DOUGLAS MD, Ot E78. 2 MIXED HYPERLIPIDEMIA 09/11/2019 HAL DOUGLAS MD, Ot G60. 9 HEREDITARY AND IDIOPATHIC NEUROPATHY, UN 09/11/2019 HAL DOUGLAS MD Ot I07. 1 RHEUMATIC TRICUSPID INSUFFICIENCY 09/11/2019 HAL DOUGLAS MD Ot I13. 0 HYP HRT CHR [place] DIS W HRT FAIL AND ST 09/11/2019 HAL DOUGLAS MD Ot I21. 9 ACUTE MYOCARDIAL INFARCTION, UNSPECIFIED 09/11/2019 HAL DOUGLAS MD Ot I25. 10 ATHSCL HEART DISEASE OF [place] CORONARY 09/11/2019 HAL DOUGLAS MD, Ot I47. 1 SUPRAVENTRICULAR TACHYCARDIA 09/11/2019 HAL DOUGLAS MD Ot I48. 91 UNSPECIFIED ATRIAL FIBRILLATION 09/11/2019 HAL DOUGLAS MD Ot I50. 22 CHRONIC SYSTOLIC (CONGESTIVE) HEART FAIL 09/11/2019 HAL DOUGLAS MD Ot I65. 29 OCCLUSION AND STENOSIS OF UNSPECIFIED CA 09/11/2019 HAL DOUGLAS MD Ot M19. 90 UNSPECIFIED OSTEOARTHRITIS, UNSPECIFIED 09/11/2019 HAL DOUGLAS MD Ot M48.061 SPINAL STENOSIS, LUMBAR REGION WITHOUT N 09/11/2019 HAL DOUGLAS MD, Ot M51. 16 INTERVERTEBRAL DISC DISORDERS W RADICULO 09/11/2019 HAL DOUGLAS MD Ot N18. 9 CHRONIC KIDNEY DISEASE, UNSPECIFIED 09/11/2019 HAL DOUGLAS MD Ot Z79. 82 SKILLED NURSING (CURRENT) USE OF ASPIRIN 09/11/2019 HAL DOUGLAS MD, Ot Z79.891 SKILLED NURSING (CURRENT) USE OF OPIATE ANALGE 09/11/2019 HAL DOUGLAS MD, Ot Z79.899 OTHER EGG PACKER (CURRENT) DRUG THERAPY 09/11/2019 HAL DOUGLAS MD, Ot Z80. 3 FAMILY HISTORY OF MALIGNANT NEOPLASM OF 09/11/2019 HAL DOUGLAS MD Ot Z80. 8 FAMILY HISTORY OF MALIGNANT NEOPLASM OF 09/11/2019 HAL DOUGLAS MD Ot Z82. 49 FAMILY HX OF ISCHEM HEART DIS AND OTH DI 09/11/2019 HAL DOUGLAS MD, Ot Z83. 3 FAMILY [...] ACUTE MYOCARDIAL INFARCTION, UNSPECIFIED 09/13/2019 HAL DOUGLAS MD, Ot I25. 10 ATHSCL HEART DISEASE OF [place] CORONARY 09/13/2019 HAL DOUGLAS MD Ot I47. 1 SUPRAVENTRICULAR TACHYCARDIA 09/13/2019 HAL DOUGLAS MD Ot I48. 91 UNSPECIFIED ATRIAL FIBRILLATION 09/13/2019 HAL DOUGLAS MD, Ot I50. 22 CHRONIC SYSTOLIC (CONGESTIVE) HEART FAIL 09/13/2019 HAL DOUGLAS MD Ot I65. 29 OCCLUSION AND STENOSIS OF UNSPECIFIED CA 09/13/2019 HAL DOUGLAS MD, Ot M19. 90 UNSPECIFIED OSTEOARTHRITIS, UNSPECIFIED 09/13/2019 HAL DOUGLAS MD, Ot M48.061 SPINAL STENOSIS, LUMBAR REGION WITHOUT N 09/13/2019 HAL DOUGLAS MD, Ot M51. 16 INTERVERTEBRAL DISC DISORDERS W RADICULO 09/13/2019 HAL DOUGLAS MD, Ot N18. 9 CHRONIC KIDNEY DISEASE, UNSPECIFIED 09/13/2019 HAL DOUGLAS MD, Ot Z79. 82 SKILLED NURSING (CURRENT) USE OF ASPIRIN 09/13/2019 HAL DOUGLAS MD, Ot Z79.891 EGG PACKER (CURRENT) USE OF OPIATE ANALGE 09/13/2019 HAL DOUGLAS MD, Ot Z79.899 OTHER EGG PACKER (CURRENT) DRUG THERAPY 09/13/2019 HAL DOUGLAS MD, Ot Z80. 3 FAMILY HISTORY OF MALIGNANT NEOPLASM OF 09/13/2019 HAL DOUGLAS MD, Ot Z80. 8 FAMILY HISTORY OF MALIGNANT NEOPLASM OF 09/13/2019 HAL DOUGLAS MD, Ot Z82. 49 FAMILY HX OF ISCHEM HEART DIS AND OTH DI 09/13/2019 HAL DOUGLAS MD, Ot Z83. 3 FAMILY HISTORY OF DIABETES MELLITUS 09/13/2019 HAL DOUGLAS MD, Ot Z88. 2 ALLERGY STATUS TO SULFONAMIDES STATUS 09/17/2019 HAL DOUGLAS MD Ot E03. 9 HYPOTHYROIDISM, UNSPECIFIED 09/17/2019 HAL DOUGLAS MD Ot E78. 2 MIXED HYPERLIPIDEMIA 09/17/2019 HAL DOUGLAS MD, Ot G60. 9 HEREDITARY AND IDIOPATHIC NEUROPATHY, UN 09/17/2019 HAL DOUGLAS MD Ot I07. 1 RHEUMATIC TRICUSPID INSUFFICIENCY 09/17/2019 HAL DOUGLAS MD, Ot I13. 0 HYP HRT CHR [place] DIS W HRT FAIL AND ST 09/17/2019 HAL DOUGLAS MD Ot I21. 9 ACUTE MYOCARDIAL INFARCTION, UNSPECIFIED 09/17/2019 HAL DOUGLAS MD Ot I25. 10 ATHSCL HEART DISEASE OF [place] CORONARY 09/17/2019 HAL DOUGLAS MD, Ot I47. 1 SUPRAVENTRICULAR TACHYCARDIA 09/17/2019 HAL DOUGLAS MD Ot I48. 91 UNSPECIFIED ATRIAL FIBRILLATION 09/17/2019 HAL DOUGLAS MD Ot I50. 22 CHRONIC SYSTOLIC (CONGESTIVE) HEART FAIL 09/17/2019 HAL DOUGLAS MD, Ot I65. 29 OCCLUSION AND STENOSIS OF UNSPECIFIED CA 09/17/2019 HAL DOUGLAS MD Ot M19. 90 UNSPECIFIED OSTEOARTHRITIS, UNSPECIFIED 09/17/2019 HAL DOUGLAS MD, Ot M48.061 SPINAL STENOSIS, LUMBAR REGION WITHOUT N 09/17/2019 HAL DOUGLAS MD, Ot M51. 16 INTERVERTEBRAL DISC DISORDERS W RADICULO 09/17/2019 HAL DOUGLAS MD, Ot N18. 9 CHRONIC KIDNEY DISEASE, UNSPECIFIED 09/17/2019 HAL DOUGLAS MD, Ot Z79. 82 SKILLED NURSING (CURRENT) USE OF ASPIRIN 09/17/2019 HAL DOUGLAS MD Ot Z79.891 SKILLED NURSING (CURRENT) USE OF OPIATE ANALGE 09/17/2019 HAL DOUGLAS MD, Ot Z79.899 OTHER SKILLED NURSING (CURRENT) DRUG THERAPY 09/17/2019 HAL DOUGLAS MD, Ot Z80. 3 FAMILY HISTORY OF MALIGNANT NEOPLASM OF 09/17/2019 HAL DOUGLAS MD Ot Z80. 8 FAMILY HISTORY OF MALIGNANT NEOPLASM OF 09/17/2019 HAL DOUGLAS MD, Ot Z82. 49 FAMILY HX OF ISCHEM HEART DIS AND OTH DI 09/17/2019 HAL DOUGLAS MD, Ot Z83. 3 FAMILY HISTORY OF DIABETES MELLITUS 09/17/2019 HAL DOUGLAS MD Ot Z88. 2 ALLERGY STATUS TO SULFONAMIDES STATUS 09/18/2019 HAL DOUGLAS MD Ot E03. 9 HYPOTHYROIDISM, UNSPECIFIED 09/18/2019 HAL DOUGLAS MD Ot E78. 2 MIXED HYPERLIPIDEMIA 09/18/2019 HAL DOUGLAS MD Ot G60. 9 HEREDITARY AND IDIOPATHIC NEUROPATHY, UN 09/18/2019 HAL DOUGLAS MD Ot I07. 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 9 ACUTE MYOCARDIAL INFARCTION, UNSPECIFIED 09/18/2019 HAL DOUGLAS MD, Ot I25. 10 ATHSCL HEART DISEASE OF [place] CORONARY 09/18/2019 HAL DOUGLAS MD Ot I47. 1 SUPRAVENTRICULAR TACHYCARDIA 09/18/2019 HAL DOUGLAS MD, Ot I48. 91 UNSPECIFIED ATRIAL FIBRILLATION 09/18/2019 HAL DOUGLAS MD Ot I50. 22 CHRONIC SYSTOLIC (CONGESTIVE) HEART FAIL 09/18/2019 HAL DOUGLAS MD, Ot I65. 29 OCCLUSION AND STENOSIS OF UNSPECIFIED CA 09/18/2019 HAL DOUGLAS MD, Ot M19. 90 UNSPECIFIED OSTEOARTHRITIS, UNSPECIFIED 09/18/2019 HAL DOUGLAS MD, Ot M48.061 SPINAL STENOSIS, LUMBAR REGION WITHOUT N 09/18/2019 HAL DOUGLAS MD, Ot M51. 16 INTERVERTEBRAL DISC DISORDERS W RADICULO 09/18/2019 HAL DOUGLAS MD Ot N18. 9 CHRONIC KIDNEY DISEASE, UNSPECIFIED 09/18/2019 HAL DOUGLAS MD Ot Z79. 82 SKILLED NURSING (CURRENT) USE OF ASPIRIN 09/18/2019 HAL DOUGLAS MD Ot Z79.891 EGG PACKER (CURRENT) USE OF OPIATE ANALGE 09/18/2019 HAL DOUGLAS MD, Ot Z79.899 OTHER EGG PACKER (CURRENT) DRUG THERAPY 09/18/2019 HAL DOUGLAS MD, Ot Z80. 3 FAMILY HISTORY OF MALIGNANT NEOPLASM OF 09/18/2019 HAL DOUGLAS MD Ot Z80. 8 FAMILY HISTORY OF MALIGNANT NEOPLASM OF 09/18/2019 HAL DOUGLAS MD Ot Z82. 49 FAMILY HX OF ISCHEM HEART DIS AND OTH DI 09/18/2019 HAL DOUGLAS MD Ot Z83. 3 FAMILY [...] M76. 71 PERONEAL TENDINITIS, RIGHT LEG 10/04/2019 VIRGIL GIFFORD, MADYSON Ruelas Ot R60. 0 LOCALIZED EDEMA 10/04/2019 BLAINE [...] OTHER SPECIFIED POSTPROCEDURAL STATES 10/04/2019 HAL DOUGLAS MD Ot E78. 2 MIXED HYPERLIPIDEMIA 10/04/2019 HAL DOUGLAS MD Ot I08. 1 RHEUMATIC DISORDERS OF BOTH MITRAL AND T 10/04/2019 HAL DOUGLAS MD Ot I10 ESSENTIAL (PRIMARY) HYPERTENSION 10/04/2019 HAL DOUGLAS MD Ot I21. 9 ACUTE MYOCARDIAL INFARCTION, UNSPECIFIED 10/04/2019 MISAEL GIFFORD, HAL Brown Ot I65. 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 9 PROCEDURE AND TREATMENT NOT CARRIED OUT, [facility] 19 PERSONAL HISTORY OF OTHER DISEASES OF 02/21/2020 MALCOLM NAJMA LATHAM Ot E03. 9 HYPOTHYROIDISM, UNSPECIFIED 02/21/2020 [facility]. 9 OBESITY, UNSPECIFIED 02/21/2020 [facility]11. 0 HYPERTENSIVE HEART DISEASE WITH HEART FA 02/21/2020 [facility]25. 2 OLD MYOCARDIAL INFARCTION 02/21/2020 [facility]. 1 SUPRAVENTRICULAR TACHYCARDIA 02/21/2020 [facility] I48. 91 UNSPECIFIED ATRIAL FIBRILLATION 02/21/2020 [facility]50. 9 HEART FAILURE, UNSPECIFIED 02/21/2020 [facility] M19. 90 UNSPECIFIED OSTEOARTHRITIS, UNSPECIFIED 02/21/2020 [facility] Z68. 37 BODY MASS INDEX (BMI) 37.0-37.9, ADULT 02/21/2020 [facility] Z87.891 PERSONAL HISTORY OF NICOTINE DEPENDENCE 02/21/2020 [facility]. 2 ALLERGY STATUS TO SULFONAMIDES STATUS 02/21/2020 [facility] Z90.710 ACQUIRED ABSENCE OF BOTH CERVIX AND UTER 02/21/2020 [facility] Z93. 3 COLOSTOMY STATUS 02/21/2020 [facility] Z96.659 PRESENCE OF UNSPECIFIED ARTIFICIAL KNEE 02/21/2020 [facility] Z53. 9 PROCEDURE AND TREATMENT NOT CARRIED OUT, 02/21/2020 [facility] Ot Z87. 19 PERSONAL HISTORY OF OTHER DISEASES OF 02/21/2020 VIRGIL GIFFORD, MADYSON Ruelas Ot I10 ESSENTIAL (PRIMARY) HYPERTENSION 02/21/2020 MADYSON HERMAN MD Ot M48.061 SPINAL STENOSIS, LUMBAR REGION WITHOUT N 02/24/2020 [facility]. 9 PROCEDURE AND TREATMENT NOT CARRIED OUT, 02/24/2020 [facility] Z87. 19 PERSONAL HISTORY OF OTHER DISEASES OF 02/24/2020 [facility] E03. 9 HYPOTHYROIDISM, UNSPECIFIED 02/24/2020 [facility] E66. 9 OBESITY, UNSPECIFIED 02/24/2020 [facility] I11. 0 HYPERTENSIVE HEART DISEASE WITH HEART FA 02/24/2020 [facility] I25. 2 OLD MYOCARDIAL INFARCTION 02/24/2020 [facility] I47. 1 SUPRAVENTRICULAR TACHYCARDIA 02/24/2020 [facility] I48. 91 UNSPECIFIED ATRIAL FIBRILLATION 02/24/2020 [facility] I50. 9 HEART FAILURE, UNSPECIFIED 02/24/2020 [facility] M19. 90 UNSPECIFIED OSTEOARTHRITIS, UNSPECIFIED 02/24/2020 [facility] Z68. 37 BODY MASS INDEX (BMI) 37.0-37.9, ADULT 02/24/2020 [facility] Z87.891 PERSONAL HISTORY OF NICOTINE DEPENDENCE 02/24/2020 [facility] Z88. 2 ALLERGY STATUS TO SULFONAMIDES STATUS 02/24/2020 [facility] Z90.710 ACQUIRED ABSENCE OF BOTH CERVIX AND UTER 02/24/2020 [facility] Z93. 3 COLOSTOMY STATUS 02/24/2020 [facility] Z96.659 PRESENCE OF UNSPECIFIED ARTIFICIAL KNEE 02/25/2020 [facility] Z53. 9 PROCEDURE AND TREATMENT NOT CARRIED OUT, 02/25/2020 [facility] Z87. 19 PERSONAL HISTORY OF OTHER DISEASES OF 03/05/2020 MADYSON HERMAN MD Ot I10 ESSENTIAL (PRIMARY) HYPERTENSION 03/05/2020 MADYSON HERMAN MD Ot M48.061 SPINAL STENOSIS, LUMBAR REGION WITHOUT N 03/05/2020 VIRGIL MD, MADYSON C Ot I10 ESSENTIAL (PRIMARY) HYPERTENSION 03/05/2020 MADYSON HERMAN MD Ot M48.061 SPINAL STENOSIS, LUMBAR REGION WITHOUT N 03/05/2020 MADYSON HERMAN MD Ot I10 ESSENTIAL (PRIMARY) HYPERTENSION 03/05/2020 MADYSON HERMAN MD Ot M48.061 SPINAL STENOSIS, LUMBAR REGION WITHOUT N 03/05/2020 [facility] E03. 9 HYPOTHYROIDISM, UNSPECIFIED 03/05/2020 [facility] E66. 9 OBESITY, UNSPECIFIED 03/05/2020 [facility], NAJMA Berkley Ot I11. 0 HYPERTENSIVE HEART DISEASE WITH HEART FA 03/05/2020 [facility] Ot I25. 2 OLD MYOCARDIAL INFARCTION 03/05/2020 [facility]. 1 SUPRAVENTRICULAR TACHYCARDIA 03/05/2020 [facility] I48. 91 UNSPECIFIED ATRIAL FIBRILLATION 03/05/2020 [facility] I50. 9 HEART FAILURE, UNSPECIFIED 03/05/2020 [facility] M19. 90 UNSPECIFIED OSTEOARTHRITIS, UNSPECIFIED 03/05/2020 [facility] Ot Z68. 37 BODY MASS INDEX (BMI) 37.0-37.9, ADULT 03/05/2020 [facility] Z87.891 PERSONAL HISTORY OF NICOTINE DEPENDENCE 03/05/2020 [facility] Z88. 2 ALLERGY STATUS TO SULFONAMIDES STATUS 03/05/2020 [facility] Z90.710 ACQUIRED ABSENCE OF BOTH CERVIX AND UTER 03/05/2020 [facility] Z93. 3 COLOSTOMY STATUS 03/05/2020 [facility] Z96.659 PRESENCE OF UNSPECIFIED ARTIFICIAL KNEE 03/10/2020 [facility] Ot E03. 9 HYPOTHYROIDISM, UNSPECIFIED [facility] 9 OBESITY, UNSPECIFIED 03/10/2020 [facility] Ot I11. 0 HYPERTENSIVE HEART DISEASE WITH HEART FA 03/10/2020 [facility] Ot I25. 2 OLD MYOCARDIAL INFARCTION 03/10/2020 [facility] I47. 1 SUPRAVENTRICULAR TACHYCARDIA 03/10/2020 [facility] I48. 91 UNSPECIFIED ATRIAL FIBRILLATION 03/10/2020 [facility] I50. 9 HEART FAILURE, UNSPECIFIED 03/10/2020 [facility] LATHAM Ot M19. 90 UNSPECIFIED OSTEOARTHRITIS, UNSPECIFIED 03/10/2020 [facility] Z68. 37 BODY MASS INDEX (BMI) 37.0-37.9, ADULT 03/10/2020 [facility] Ot Z87.891 PERSONAL HISTORY OF NICOTINE DEPENDENCE 03/10/2020 [facility] Z88. 2 ALLERGY STATUS TO SULFONAMIDES STATUS 03/10/2020 [facility] Ot Z90.710 ACQUIRED ABSENCE OF BOTH CERVIX AND UTER 03/10/2020 [facility] DONAJMA Ot Z93. 3 COLOSTOMY STATUS 03/10/2020 [facility] Z96.659 PRESENCE OF UNSPECIFIED ARTIFICIAL KNEE 03/20/2020 MADYSON HERMAN MD Ot I10 ESSENTIAL (PRIMARY) HYPERTENSION 03/20/2020 MADYSON HERMAN MD Ot M48.061 SPINAL STENOSIS, LUMBAR REGION WITHOUT N 03/24/2020 [facility] NUNES DO Ot E03. 9 HYPOTHYROIDISM, UNSPECIFIED 03/24/2020 NAJ[facility] MALCOLM DO Ot E66. 9 OBESITY, UNSPECIFIED 03/24/2020 [facility] NAJMA LATHAM Ot I11. 0 HYPERTENSIVE HEART DISEASE WITH HEART FA 03/24/2020 [facility] NAJMA LATHAM Ot I25. 2 OLD MYOCARDIAL INFARCTION 03/24/2020 [facility] MALCOLM DO Ot I47. 1 SUPRAVENTRICULAR TACHYCARDIA 03/24/2020 [facility] NAJMA LTAHAM Ot I48. 91 UNSPECIFIED ATRIAL FIBRILLATION 03/24/2020 [facility] NAJMA LATHAM Ot I50. 9 HEART FAILURE, UNSPECIFIED 03/24/2020 [facility] NAJMA LATHAM Ot K52. 9 NONINFECTIVE GASTROENTERITIS AND COLITIS 03/24/2020 [facility] NAJMA LATHAM Ot M19. 90 UNSPECIFIED OSTEOARTHRITIS, UNSPECIFIED 03/24/2020 [facility] NAJMA LATHAM Ot Z12. 11 ENCOUNTER FOR SCREENING FOR MALIGNANT NE 03/24/2020 NAJ[facility] MALCOLM DO Ot Z68. 37 BODY MASS INDEX (BMI) 37.0-37.9, ADULT 03/24/2020 [facility] Z87. 19 PERSONAL HISTORY OF OTHER DISEASES OF TH 03/24/2020 [facility] Berk[facility] Ot Z87.891 PERSONAL HISTORY OF NICOTINE DEPENDENCE 03/24/2020 [facility] Berk[facility] Ot Z88. 2 ALLERGY STATUS TO SULFONAMIDES STATUS 03/24/2020 [facility] Berkley Ot Z90.710 ACQUIRED ABSENCE OF BOTH CERVIX AND UTER 03/24/2020 [facility] Berkley Ot Z93. 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 04/06/2020 Ot E03.9 HYPO THYROIDISM, UNSPECIFIED 04/06/2020 Ot E78.2 MIXE D HYPERLIPIDEMIA 04/06/2020 Ot I10 ESSENT IAL (PRIMARY) HYPERTENSION 04/06/2020 Ot J90 PLEURA L EFFUSION, NOT ELSEWHERE CLASSIFI 04/06/2020 Ot R60.1 GENE RALIZED EDEMA 04/06/2020 Ot Z98.890 OT HER SPECIFIED POSTPROCEDURAL STATES Procedures Code Description Performed By Per formed On [id number] BY PASS SIGMOID COLON TO CUTANEOUS, OPEN 05/30/2019 [id number] EX CISION OF SIGMOID COLON, OPEN APPROACH 05/30/2019 [id number] RE LEASE SMALL INTESTINE, OPEN APPROACH 05/30/2019 [id number] RE SECTION OF APPENDIX, OPEN APPROACH 05/30/2019 [id number] RE SPIRATORY VENTILATION, 24- 96 CONSECUTI 05/30/2019 [...] culture - 05/27/19 12:50 Bacterial urine culture [id number] NRG COLONY COUNT >100,000/ML NRG FTX;REPORTABLE SUSCEPTIBILITY REPORTED 05-30-19 09 NRG FREE TEXT ENTRY 2 MUCOID COLONY [...] pa manjeet - 05/30/19 16:05 WRISTBAND NUMBER [id number] NRG ABO+Rh group OP NRG Blood group [...] 107 mmol/L 98-107 Carbon dioxide 29 mmol/L -32 Serum or plasma anion gap determination (moles/volume) [...] Manual absolute plasma cell count - 05/28 0 03:00 Blood monocytes/100 leukocytes 6 % NRG [...] ENTRY 2 PRELIM RAPID ID TEST AT [facility] 09/12 9:25 NRG FREE TEXT ENTRY 3 [...] eening culture NEG NRG Coronavirus SARS-CoV-2 SO 2018 0 07:50 Coronavirus Ab [Units/volume] in Serum Negative Negative Coronavirus SARS-CoV-2 SO 2018 0 07:57 Coronavirus Ab [Units/volume] in Serum NOT DETECTE D Not Detecte Encounters ACCT No. Visit Date/Time Discharge Status Pt. Type Provider Facility Loc./Unit Complaint [id number] 04/07/2020 05:30:00 13:45:00 DIS Outpatient NAJMA MALCOLM DO [facility] PREOP HISTORY OF COLON PERFOR ATION [id number] 03/17/2020 14:50:00 23:59:59 CLS Outpatient MADYSON HERMAN MD [facility] SPINAL STENOSIS;LUMBAR REGION;R SCIATICA;LE LYMPHE [id number] 02/19/2020 07:51:00 23:59:59 CLS Outpatient NAJMA MALCOLM DO [facility] ENDO COLONOSCOPY HX OF PERFO RATION [id number] 02/18/2020 08:48:00 23:59:59 CLS Outpatient MALCOLM NAJMA LATHAM [facility] ENDO HX OF PERFORATION [id number] 02/13/2020 05:34:00 14:44:00 DIS Outpatient NAJMA MALCOLM DO [facility] PREOP COLONOSCOPY [id number] 01/06/2020 08:55:00 00:01:00 DIS Outpatient MADYSON HERMAN MD [facility] SPINAL STENOSIS; LUMBAR REGION; R SIDE SCIATICA [id number] 09/05/2019 14:21:00 00:01:00 DIS Outpatient BLAINE AGUDELO MD, V [facility] ONC [id number] 09/11/2019 06:37:00 14:55:00 DIS Outpatient HAL DOUGLAS MD [facility] CATH ABN STRESS,CHF,CAD,AF,H TN,HLP [id number] 09/06/2019 06:48:00 23:59:59 CLS Outpatient HAL DOUGLAS MD [facility] CARD HTN [id number] 06/27/2019 12:45:00 11:10:00 DIS Inpatient MATT NEWELL DO, V [facility] IRF DISUSE MYOPATHY [id number] 05/27/2019 15:22:00 10:37:00 DIS Inpatient MADYSON HERMAN MD [facility] ICU DIVERTICULITIS,N/V,ABD PAIN,UTI,ILEUS S/P R THR [id number] 02/22/2019 09:18:00 23:59:59 CLS Outpatient MADYSON HERMAN MD [facility] CARD BLE EDEMA [id number] 11/19/2018 15:06:00 23:59:59 CLS Preadmit MADYSON HERMAN MD [facility] RAD LUMBAR STENOSIS W/ ULI DICATION [id number] 11/03/2017 10:00:00 10:38:00 DIS Outpatient JACQUELINE ARANA APRN [facility] SLEEP SNORING, EDS [id number] 09/11/2017 12:03:00 23:59:59 CLS Preadmit JACQUELINE ARANA APRN [facility] RAD SNORING [id number] 08/30/2017 20:57:00 05:20:00 DIS Outpatient JACQUELINE ARANA APRN [facility] SLEEP G47.33 OBSTRUCTIVE SLE EP APNEA [id number] 03/22/2017 07:59:00 017 23:59:59 CLS Outpatient ALEYDA DPM, LESLIE Q [facility] RAD PERONEAL TENONITIS [id number] 06/06/2016 13:14:00 016 14:40:00 DIS Outpatient CHRISTI EDWARDS MD [facility] CARD DISC DISORDER [id number] 12/11/2015 07:23:00 016 08:10:00 DIS Outpatient CHRISTI EDWARDS MD [facility] CARD DISC DISORDER W/RADICUL OPATHY [id number] 09/16/2015 08:37:00 016 23:59:59 CLS Outpatient ENMA JIMENEZ [facility] RAD STENOSIS [id number] 12/19/2014 07:09:00 015 08:06:00 DIS Outpatient CHRISTI EDWARDS MD [facility] CARD DDD [id number] 12/08/2014 09:06:00 015 23:59:59 CLS Outpatient CHRISTI EDWARDS MD [facility] RAD DEGENERATIVE DISC DISEA SE,LUMBAR [id number] 09/16/2013 13:44:00 014 23:59:59 CLS Outpatient BOLA DECKER MD [facility] RAD RENAL INSUFF [id number] 04/09/2020 08:00:00 P EN Preadmit NAJMA MALCOLM DO HISTORY OF COLON PERFORATION [id number] 12/05/2019 00:00:00 Document Registration [id number] 06/21/2011 07:20:00 Document Registration [id number] 06/01/2011 13:27:00 Document Registration
[2020-04-09] MEDS ORDERED: ceFAZolin INJECTION 1,000 MG in WATER (STERILE) FOR INJECTION 10 ML IV ONE (06:45)
[2020-04-09] MEDS ORDERED: metroNIDAZOLE 500MG/100ML IVPB 100 ML IV ONE (06:45)
[2020-04-09] MEDS: LACTATED RINGERS 1,000 ML IV PRN ×3 (06:48→12:57)
[2020-04-09] MEDS ORDERED: FLEET ENEMA ADULT 1 EA BTL ONE (06:52)
[2020-04-09 06:57] LABS: BASOPHILS # (AUTO) 0.1 10^3/uL (0.0-0.1); BASOPHILS % (AUTO) 1 % (0-10); EOSINOPHILS # (AUTO) 0.2 10^3/uL (0.0-0.3); EOSINOPHILS % (AUTO) 3 % (0-10); HEMATOCRIT 32 % (35-52); HEMOGLOBIN 10.5 G/DL (11.5-16.0); LYMPHOCYTES # (AUTO) 2.3 X 10^3 (1.0-4.0); LYMPHOCYTES % (AUTO) 26 % (12-44); MEAN CORPUSCULAR HEMOGLOBIN 32 PG (25-34); MEAN CORPUSCULAR HGB CONC 33 G/DL (32-36); MEAN CORPUSCULAR VOLUME 96 FL (80-99); MEAN PLATELET VOLUME 10.9 FL (7.4-10.4); MONOCYTES # (AUTO) 0.8 X 10^3 (0.0-1.0); MONOCYTES % (AUTO) 10 % (0-12); NEUTROPHILS # (AUTO) 5.3 X 10^3 (1.8-7.8); NEUTROPHILS % (AUTO) 61 % (42-75); PLATELET COUNT 223 10^3/uL (130-400); RED CELL DISTRIBUTION WIDTH 12.8 % (10.0-14.5); WHITE BLOOD COUNT 8.7 10^3/uL (4.3-11.0)
[2020-04-09] MEDS ORDERED: FLEET ENEMA ADULT 1 EA BTL PR ONE (07:00)
[2020-04-09] MEDS ORDERED: fentaNYL INJECTION 100 MCG/2 ML AMP ONE (07:07)
[2020-04-09] MEDS ORDERED: LIDOCAINE PF 2% 5 ML (XYLOCAINE) VIAL ONE (07:07)
[2020-04-09] MEDS ORDERED: proPOfol 200 MG/20 ML (DIPRIVAN) VIAL IV ONE (07:07)
[2020-04-09] MEDS ORDERED: ONDANSETRON 4 MG/2 ML (SDV) Z0FRAN ONE (07:07)
[2020-04-09] MEDS ORDERED: MIDAZOLAM 2 MG/2 ML (VERSED) VIAL ONE (07:07)
[2020-04-09] MEDS ORDERED: SEVOFLURANE (ULTANE) 15 ML INHAL SOLN ONE ×19 (07:08→12:20)
[2020-04-09] MEDS ORDERED: GLYCOPYRROLATE 0.2 MG/ML (ROBINUL) 2 ML VIAL ONE (07:08)
[2020-04-09] MEDS ORDERED: ROCURONIUM 10 MG/ML 5 ML SYRINGE IV ONE ×2 (07:08→12:06)
[2020-04-09] MEDS ORDERED: NEOSTIGMINE 3 MG/3 ML VIAL ONE (07:08)
[2020-04-09] MEDS ORDERED: BUP/EPI 0.5% 1:200,000 (MARCAINE) 10ML VIAL IJ ONE (07:28)
[2020-04-09] MEDS ORDERED: ceFAZolin INJECTION 1,000 MG ONE (11:55)
[2020-04-09] MEDS ORDERED: HYDROmorphone 2 MG/ML VIAL (DILAUDID) ONE (12:15)
--- NOTE | 2020-04-09 12:27 | Progress Note-Post Operative ---
Post-Operative Progess Note Surgeon (s)/Facilities Maintenance Engineer (s) Surgeon NAJMA MALCOLM DO Facilities Maintenance Engineer: Dr. Luis to assist in retraction dissection and closure Pre-Operative Diagnosis colostomy, history of perforation Post-Operative Diagnosis same Procedure & Operative Findings Date of Procedure 04/09/20 Procedure Performed/Findings lap hand assisted colostomy reversal Anesthesia Type gen Estimated Blood Loss Estimated blood loss (mL): 100 mL Specimens/Packing Specimens Removed anastomotic rings NAJMA MALCOLM DO Apr 09, 2020 12:27
[2020-04-09] MEDS ORDERED: morphine INJ 4 MG/ML 1 ML (VIAL/SYRINGE) IVP PRN (12:30)
[2020-04-09] MEDS ORDERED: NS 100 ML (IVPB) BAG IV SCH (12:30)
[2020-04-09] MEDS ORDERED: ONDANSETRON 4 MG/2 ML (SDV) Z0FRAN IVP PRN ×2 (12:30→12:45)
[2020-04-09] MEDS ORDERED: HYDROmorphone 2 MG/ML VIAL (DILAUDID) IV ONE (12:45)
[2020-04-09] MEDS ORDERED: morphine INJ 10 MG/ML 1ML (SYR OR VIAL) IVP ONE (12:45)
--- NOTE | 2020-04-09 14:00 | NUR ---
1400: Arrived to room to receive bedside report from IVAN Kennedy. Patient currently on 2L NC with 02 saturations ranging from 72% to 80%, pulse 45. Patient very lethargic but responds to light shaking. 1403: Patient placed on 4L NC with no improvement in oxygenation. 1406: Patient placed on oxy mask at 6L and 02 saturations improved to 83%. RT and 4th floor steam meter reader called at this time. RT recommended patient be placed on BIPAP. Dr. Santos notified and gave verbal orders to transfer patient to ICU and consult teleICU. 1410: RT placed patient on BIPAP at this time. 02 saturations now ranging 84% to 93%.
[2020-04-09] MEDS ORDERED: RT-ALBUTEROL/IPRATROPIUM 3 ML (DUONEB) VIAL INH PRN (16:00)
[2020-04-09] MEDS: ceFAZolin 2 GM IV Premixed 50 ML IV SCH (17:21)
[2020-04-09] MEDS: metroNIDAZOLE 500MG/100ML IVPB 100 ML IV SCH ×2 (17:21→22:51)
[2020-04-09] MEDS: HYDROcodone/APAP 5 MG/325 MG (LORTAB) TAB PO PRN ×2 (18:36→22:45)
[2020-04-09] MEDS: RT-ALBUTEROL/IPRATROPIUM 3 ML (DUONEB) VIAL INH SCH ×2 (19:43→19:44)
--- NOTE | 2020-04-09 20:00 | NUR ---
PT A/O. ON 2L NC
[2020-04-09] MEDS: NS IV 1000 ML 1,000 ML IV SCH ×2 (22:53→23:31)
[2020-04-09] MEDS ORDERED: FUROSEMIDE 20 MG (LASIX) TAB PO PRN (23:00)
[2020-04-10] VITALS (23 sets, daily range): BP systolic 105–168; BP diastolic 44–110
[2020-04-10] MEDS: ceFAZolin 2 GM IV Premixed 50 ML IV SCH (00:10)
[2020-04-10] MEDS: HYDROcodone/APAP 5 MG/325 MG (LORTAB) TAB PO PRN ×3 (03:15→19:37)
[2020-04-10 04:22] LABS: HEMOGLOBIN 9.7 G/DL (11.5-16.0); MEAN PLATELET VOLUME 11.1 FL (7.4-10.4); RED CELL DISTRIBUTION WIDTH 12.9 % (10.0-14.5); WHITE BLOOD COUNT 14.6 10^3/uL (4.3-11.0)
[2020-04-10 04:50] LABS: CALCIUM 8.1 MG/DL (8.5-10.1); CREATININE SERUM 1.72 MG/DL (0.60-1.30); MAGNESIUM 1.5 MG/DL (1.6-2.4); POTASSIUM 4.6 MMOL/L (3.6-5.0)
[2020-04-10] MEDS: MAGNESIUM 1 GM/100 ML IVPB 100 ML IV SCH ×2 (06:35→07:48)
--- NOTE | 2020-04-10 07:03 | Consultation ---
History of Present Illness History of Present Illness Patient Consulted On(fuad/time) 04/10/20 06:57 Date Seen by Provider: Apr 10, 2020 Time Seen by Provider: 06:57 Reason for Visit: ostomy reversal History of Present Illness 79 yo F -admitted for ostomy take down and reanastomosis. -I was consulted for medical management. -Surgery went well on 04/09/20- -Pt this AM reports that she feels well and had no complaints. Creatinine elevated, blood pressure (diastolic) has been low. -Patient has CKD stage III, hypothyroidism. -She has been looking forward to getting rid of the ostomy. Allergies and Home Medications Allergies Coded Allergies: Sulfa (Sulfonamide Antibiotics) (Verified Allergy, Mild, ITCHING/SWOLLEN HANDS, 04/06/20) Home Medications Amitriptyline HCl 10 Mg Tablet, 10 MG PO HS, (Reported) Aspirin 81 Mg Tablet.dr, 81 MG PO BID, (Reported) Furosemide 20 Mg Tablet, 20 MG PO DAILY PRN for SWELLING, (Reported) Gabapentin 300 Mg Capsule, 300 MG PO TID, (Reported) Levothyroxine Sodium 50 Mcg Tablet, 50 MCG PO DAILY, (Reported) Lisinopril 10 Mg Tablet, 10 MG PO DAILY, (Reported) Metoprolol Succinate 25 Mg Tab.er.24h, 25 MG PO DAILY, (Reported) Simvastatin 40 Mg Tablet, 40 MG PO HS, (Reported) Vit C/E/Zn/Coppr/Lutein/Zeaxan 1 Each Capsule, 1 EACH PO BID, (Reported) Patient Home Medication List Home Medication List Reviewed: Yes Past Gglhkqi-Ycplws-Vwlsoo Hx Patient Social History Alcohol Use: Denies Use Recreational Drug Use: No Type Used: Cigarettes Former Smoker, Quit: Feb 10, 1985 2nd Hand Smoke Exposure: No Recent Foreign Travel: No Contact w/Someone Who Travel: No Recent Hopitalizations: No Immunizations Up To Date Tetanus Booster (TDap): Unknown Date of Pneumonia Vaccine: Aug 28, 2013 Date of Influenza Vaccine: Jun 05, 2019 Seasonal Allergies Seasonal Allergies: No Past Medical History Surgeries: Yes (COLOSTOMY) Appendectomy, Bowel Surgery, Hysterectomy, Orthopedic Respiratory: No Currently Using CPAP: No Currently Using BIPAP: No Cardiac: Yes Hypertension Neurological: No Neuropathy Sexually Transmitted Disease: No HIV/AIDS: No Genitourinary: No Bladder Infection, UTI-Chronic Gastrointestinal: Yes (PERFORATED BOWEL/BOWEL RESECTION/COLOSTOMY) Gastroesophageal Reflux, Diverticulosis Musculoskeletal: Yes Chronic Back Pain Endocrine: Yes Hypothyroidsim HEENT: Yes (READING GLASSES) Loss of Vision: Denies Hearing Impairment: Denies Cancer: Yes Uterine Did You Recieve Any Treatments: Yes What Type of Treatment Did You: Surgical Intervention Psychosocial: No Integumentary: Yes Recent Skin Changes Blood Disorders: No Adverse Reaction/Blood Tranf: No (HAS HAD BLOOD WITH NO REACTION) Family Medical History Cancer, Diabetes, Hypertension Review of Systems Review of Systems General: No Chills, No Night Sweats HEENT: No Head Aches Pulmonary: No Dyspnea, No Cough Cardiovascular: No: Chest Pain Gastrointestinal: No: Nausea, Vomiting, Abdominal Pain Genitourinary: No Dysuria Physical Exam Vital Signs Vital Signs - First Documented 04/09/20 04/09/20 06:10 14:30 Temp 36.3 Pulse 57 Resp 18 B/P (MAP) 181/76 (111) O2 Delivery Room Air FiO2 25 Capillary Refill : Less Than 3 Seconds Height, Weight, BMI Height: 5'2.00" Weight: 200lbs. 0.0oz. 90.969182xs; 40.22 BMI Method: General Appearance: No Apparent Distress, WD/WN HEENT: PERRL/EOMI Neck: Non Tender, Supple Respiratory: Chest Non Tender, Lungs Clear, Normal Breath Sounds, No Accessory Muscle Use, No Respiratory Distress Cardiovascular: Regular Rate, Rhythm Gastrointestinal: Non Tender, Soft Extremity: No Calf Tenderness, Pedal Edema Neurologic/Psychiatric: Alert, Oriented x3 Skin: Warm/Dry Assessment/Plan Assessment/Plan Assessment and Plan 04/10/20- s/p day 1 ostomy take down and bowel reanastomosis -IVF for acute on chronic renal failure- will need to back off fluids tomorrow if Cr improves. Monitor urine output. -holding lisinopril- may restart if Cr improves and blood pressure is elevated. Otherwise will hold. Dispo: Patient is in good spirits; continue to monitor progress and mood. Problems: (1) HTN (hypertension) (2) GERD without esophagitis (3) Type 2 diabetes mellitus without complications (4) HISTORY COLON PERFORATION Assessment & Plan: s/p ostomy 12/09/19- ostomy take down and reanastomosis (5) Acute on chronic kidney failure (6) CKD (chronic kidney disease), stage IV Assessment & Plan: avoid NSAIDs, nephrotoxic agents. (7) Chronic diastolic (congestive) heart failure Assessment & Plan: lasix 20mg po prn edema. (8) Hypothyroid Qualifiers: Qualified Codes: E03.9 - Hypothyroidism, unspecified Assessment & Plan: continue levothyroxine. Clinical Quality Measures DVT/VTE Risk/Contraindication: Risk Factor Score Per Nursin RFS Level Per Nursing on Admit: 4+=Very High MADYSON HERMAN MD Apr 10, 2020 07:03
--- NOTE | 2020-04-10 07:55 | OPERATIVE REPORT ---
DATE OF SERVICE: 04/09/2020 PREOPERATIVE DIAGNOSIS: Colostomy with history of perforation. POSTOPERATIVE DIAGNOSIS: Colostomy with history of perforation. PROCEDURE: Laparoscopic hand-assisted colostomy reversal. SURGEON: Tommy Santos DO. HVAC MAINTENANCE TECHNICIAN: Dr. Luis, assisted in retraction, dissection and closure. ANESTHESIA: General. ESTIMATED BLOOD LOSS: 100 mL. COMPLICATIONS: None. SPECIMENS: Anastomotic rings. INDICATIONS: The patient is an 79-year-old female with history of perforation and had to have Floyd procedure. She wishes to have her colostomy reversed. She understands risks and benefits and wishes to proceed. Consent was signed in the chart. DESCRIPTION OF PROCEDURE: The patient was taken to the operating suite. She was prepped and draped in sterile fashion. Surgical pause was performed. A 12 mm incision was made in the subxiphoid region and cautery used to dissect down to the fascia, which was then scored and divided. The abdomen was then entered. A huitron trocar was inserted, and pneumoperitoneum was achieved. Scope was inserted. Multiple adhesions throughout the majority of the abdomen except the right side were present. Under direct visualization of the laparoscope, the trocar was placed in the right upper quadrant, and a 5 mm trocar was placed in the right lower quadrant. Using a LigaSure, the adhesions were then taken down and once the colostomy was encountered, all the adhesions were freed all the way up to the peritoneum and around the colostomy for the colostomy takedown. The pelvis had multiple adhesions as well with significant adhesions of small bowel down into the pelvis, these were then began to be mobilized as well so that the small bowel could be moved out of the pelvis for reanastomosis. The skin around the colostomy was then had an elliptical incision made around it. The 15 blade scalpel cautery was used to dissect down the subcutaneous tissues all the way down to the fascia until the colostomy could be mobilized and the colon to be pulled out through that incision. The patient had adequate length for reanastomosis. A 29 EEA stapler was being utilized. The colon was opened anvil could be inserted after a pursestring suture was applied and the scissors were used to cut the end off. The anvil was secured with a suture from the pursestring and once this was done, the colon was placed back in the abdomen. The fascial defect was then closed using 1-0 looped PDS in a running fashion. The abdomen was reinsufflated. There were some adhesions of the small bowel down to the rectum and down to the pelvis that were unable to be removed laparoscopically; therefore inferior to the umbilicus, an incision was made and cautery used to dissect down to the tissues until the abdomen was entered for a hand GelPort to be placed. Once this was placed, the adhesions were taken down and the pelvis was opened for the reanastomosis. Dr. Luis then went below with the patient in lithotomy position and began to serially dilate. There was some difficulty in getting the rectum mobilized due to multiple adhesions still present. These were then carefully dissected both bluntly with cautery trying to advance, but some of this was significantly adhered. Also the rectum was significantly adhered to the area on the bladder, which was able to be freed. To make sure that no injury was present and also that there was adequate room for the anastomosis, the bladder was inflated with saline through the Chen, which demonstrated the anastomosis to be free from that area. At that time, the 29 EEA stapler was inserted through the rectum and was brought out through the rectal wall and the anvil was connected to the stapler, which was then tightened down and fired in the usual fashion. Two good rings were present. The pelvis was filled with fluid and air test was performed with no air bubbles leaking. At this time, the abdomen was irrigated with copious amounts of irrigation and suctioned. The hand port was then closed using 1-0 looped PDS in a running fashion. The trocars were removed. The skin incisions were then closed using vijay. The abdomen was then washed and dried. Sterile bandages were applied. The patient tolerated procedure well without any complications. She was taken to recovery room in stable condition. Job ID: [id number] DocumentID: [id number] Dictated Date: 04/09/2020 21:12:32 [employer] Edge Burnisher Date: 04/10/2020 07:54:53 Dictated By: DO NANO GRAY
[2020-04-10] MEDS ORDERED: lisINopril 10 MG (PRINIVIL) TABLET PO SCH (09:00)
[2020-04-10] MEDS: GABAPENTIN 300 MG (NEURONTIN) CAP PO SCH ×3 (09:31→22:32)
[2020-04-10] MEDS: LEVOTHYROXINE 50 MCG (LEVOTHROID) TAB PO SCH (09:31)
[2020-04-10] MEDS: NS IV 1000 ML 1,000 ML IV SCH ×2 (09:32→20:18)
[2020-04-10] MEDS: RT-ALBUTEROL/IPRATROPIUM 3 ML (DUONEB) VIAL INH SCH ×3 (09:58→21:05)
--- NOTE | 2020-04-10 10:55 | Anesthesia-General Post-Op ---
General Patient Condition Mental Status/LOC: Same as Preop Cardiovascular: Satisfactory Nausea/Vomiting: Absent Respiratory: Satisfactory Pain: Controlled Complications: Absent Post Op Complications Complications None Follow Up Care/Instructions Patient Instructions None needed. Anesthesia/Patient Condition Patient Condition Patient is doing well, has a sore throat which is to be expected, stable vital signs, no apparent adverse anesthesia problems. ROCKY OVERTON DO Apr 10, 2020 10:55
--- NOTE | 2020-04-10 12:26 | Physical Therapy Evaluation ---
PT Evaluation-General Medical Diagnosis Admission Date Apr 09, 2020 at 05:59 Medical Diagnosis: s/p colostomy reversal Onset Date: Apr 09, 2020 Therapy Diagnosis Therapy Diagnosis: weakness Height/Weight Height (Feet): 5 Height (Inches): 2.00 Weight (Pounds): 200 Weight (Ounces): 0.0 Precautions Precautions/Isolations: Fall Prevention, Standard Precautions Weight Bear Status Right Lower Extremity: Right Weight Bearing/Tolerated Left Lower Extremity: Left Weight Bearing/Tolerated Referral Physician: Tom Reason for Referral: Evaluation/Treatment Medical History Pertinent Medical History: Diverticulitis, HTN Additional Medical History Uterine CA, HTN Current History colostomy with Hx perforation now s/p colostomy reversal Reviewed History: Yes Social History Home: Multilevel Current Living Status: Other Family Entry Into Home: Stairs With Railing PT Steps Into Home: 4 PT Steps Inside Home: 12 Prior Prior Level of Function SCALE: Activities may be completed with or without assistive devices. 7-Ahkuoujpzg-hohuqbh completes the activity by him/herself with no assistance from a helper. 5-Set-up or Clean-up Assistance-helper sets up or cleans up; patient completes activity. Hector assists only prior to or following the activity. 4-Supervision or Touching Assistance-helper provides verbal cues and/or touching/steadying and/or contact guard assistance as patient completes activity. Assistance may be provided throughout the activity or intermittently. 3-Partial/Moderate Assistance-helper does LESS THAN HALF the effort. Hector lifts, holds or supports trunk or limbs, but provides less than half the effort. 2-Substantial/Maximal Assistance-helper does MORE THAN HALF the effort. Hector lifts or holds trunk or limbs and provides more than half the effort. 2-Cihanvhsf-zuxcgk does ALL the effort. Patient does none of the effort to complete the activity. Or, the assistance of 2 or more helpers is required for the patient to complete the activity. If activity was not attempted, code reason: 7-Patient Refused. 9-Not Applicable-not attempted and the patient did not perform the activity before the current illness, exacerbation or injury. 10-Not Attempted due to Environmental Limitations-(lack of equipment, weather restraints, etc.). 88-Not Attempted due to Medical Conditions or Safety Concerns. Bed Mobility: 6 Transfers (B,C,W/C): 6 Gait: 6 Stairs: 6 Indoor Mobility (Ambulation): Independent Stairs: Independent Prior Devices Use: None PT Evaluation-Current Subjective Pt in bed, agreeable. Denies pain. Pt/Family Goals Home Objective Patient Orientation: Person, Place, Time, Situation Attachments: Chen Catheter, IV multiple lines ROM/Strength ROM Upper Extremities WFL for mobility ROM Lower Extremities WFL for mobility Strength Upper Extremities WFL for mobility Strength Lower Extremities Grossly 3+/5; no resistance applied due to recent abdominal surgery Integumentary/Posture Integumentary See nurses' notes Bladder Incontinence: Chen Cath Posture kyphotic Sensory Vision: Functional Hearing: Functional Transfers Lying to Sitting/Side of Bed(Q: 3 Sit to Stand (QC): 4 SBA-CGA sit<->stand and bec->chair with FWW Gait Does the Patient Walk?: Yes Mode of Locomotion: Walk Anticipated Mode of Locomotion: Walk Walk 10 feet (QC): 9 Walk 50 ft with 2 Turns(QC): 9 Walk 150 ft (QC): 9 Walking 10ft/uneven surface-QC: 9 Distance: 2 Gait Assistive Device: FWW Comments/Gait Description bed->chair with FWW. Unable to ambulate due to multiple lines. Wheelchair Training Does the Pt Use a Wheelchair?: No Balance Sitting Static: Normal Sitting Dynamic: Normal Standing Static: Normal Standing Dynamic: Good Treatment Eval. Up in recliner with all needs met. Assessment/Needs Pt would benefit from short term skilled PT to restore functional strength and (I) with functional mobility to allow safe return home with family. Rehab Potential: Good PT Short Term Goals Short Term Goals Time Frame: Apr 14, 2020 Roll Left & Right: 6 Sit to lyin Lying to sitting on side of be: 6 PT Chcf Goals Chcf Goals PT Chcf Goals Time Frame: Apr 17, 2020 Roll Left & Right (QC): 6 Sit to Lying (QC): 6 Lying-Sitting on Side/Bed(QC): 6 Sit to Stand (QC): 6 Chair/Shs-gp-Nykta Xfer(QC): 6 Toilet Transfer (QC): 6 Car Transfer (QC): 6 Does the Patient Walk: Yes Walk 10 feet (QC): 6 Walk 50ft with 2 Turns (QC): 6 Walk 150 ft (QC): 6 Walking 10ft on Uneven Surface: 5 1 Step (curb) (QC): 6 4 Steps (QC): 6 12 Steps (QC): 6 Picking up an Object (QC): 6 Does the Pt use WC or Scooter?: No Type: N/A Type: N/A PT LTGs established to allow safe return home. PT Plan Problem List Problem List: Activity Tolerance, Functional Strength, Safety, Balance, Gait, Transfer, Bed Mobility Treatment/Plan Treatment Plan: Continue Plan of Care Treatment Plan: Bed Mobility, Education, Functional Activity Chuyita, Functional Strength, Gait, Safety, Therapeutic Exercise, Transfers Treatment Duration: Apr 17, 2020 Frequency: 6 times per week Estimated Hrs Per Day: .25 hour per day Patient and/or Family Agrees t: Yes Safety Risks/Education Teaching Recipient: Patient Teaching Methods: Discussion Response to Teaching: Verbalize Understanding PT POC Discharge Recommendations Therapy Discharge Recommendati: Home & Family Time/GCodes Time In: 1129 Time Out: 1158 Total Billed Treatment Time: 29 Total Billed Treatment 1, DOTTY x 29' JC NEVES DPKristi Apr 10, 2020 12:26
--- NOTE | 2020-04-10 16:35 | Progress Note - Surgery ---
TAMERAMORENITA MED STUDENT 04/10/20 1635: Subjective Date Seen by a Provider: Apr 10, 2020 Time Seen by a Provider: 07:10 Subjective/Events-last exam Pt comfortable and in no acute distress. Claims to be in minimal pain with just some slight abdominal soreness. Denies onset of flatulence. Is breathing well. No other complaints at this time. Denies n/v, fever, chills, chest pain, sob. Objective Exam Vital Signs Date Time Temp Pulse Resp B/P (MAP) Pulse Ox O2 Delivery O2 Flow Rate FiO2 04/10/20 16:00 36.2 04/10/20 15:24 100 Room Air 04/10/20 15:00 81 11 141/74 (96) 70 Room Air 04/10/20 14:00 68 19 122/110 (114) 97 Room Air 04/10/20 13:27 65 04/10/20 13:00 61 13 96 Room Air 04/10/20 12:29 96 Room Air 04/10/20 12:00 36.7 04/10/20 12:00 66 26 124/45 (71) 97 Room Air 04/10/20 11:00 68 23 125/53 (77) 94 Room Air 04/10/20 10:00 70 20 105/46 (65) 97 Room Air 04/10/20 09:59 97 Room Air 04/10/20 09:00 75 17 131/57 (81) 96 Room Air 04/10/20 08:45 96 Room Air 04/10/20 08:00 74 17 133/52 (79) 94 Room Air 04/10/20 08:00 37.8 04/10/20 07:22 72 04/10/20 07:00 75 16 107/44 (65) 94 Room Air 04/10/20 06:00 67 16 112/50 (70) 95 Room Air 04/10/20 05:00 75 113/50 (71) 93 Room Air 04/10/20 04:00 92 Room Air 04/10/20 04:00 80 116/50 (72) 92 Room Air 04/10/20 03:00 90 17 109/44 (65) 93 Room Air 04/10/20 02:58 36.3 04/10/20 02:37 93 Room Air 04/10/20 02:00 77 18 119/46 (70) 90 Room Air 04/10/20 01:00 75 20 130/55 (80) 94 Room Air 04/10/20 01:00 75 04/10/20 00:00 92 Room Air 04/10/20 00:00 74 14 119/52 (74) 93 Room Air 04/09/20 23:00 77 18 148/65 (92) 92 Room Air 04/09/20 22:00 67 14 145/59 (87) 93 Room Air 04/09/20 21:00 68 11 126/59 (81) 94 Nasal Cannula 2.00 04/09/20 20:49 35.1 60 94 21 04/09/20 20:00 68 13 151/59 (89) 98 Nasal Cannula 2.00 04/09/20 20:00 36.4 04/09/20 20:00 94 Nasal Cannula 2.00 04/09/20 19:44 97 Nasal Cannula 2.00 04/09/20 19:00 61 04/09/20 19:00 61 15 165/61 (95) 99 Nasal Cannula 2.00 04/09/20 18:00 60 13 154/49 (84) 98 Nasal Cannula 2.00 04/09/20 17:00 51 13 154/75 (101) 98 Nasal Cannula 4.00 I & O 04/10/20 07:00 Intake Total 1610 ml Output Total 3558 ml Balance -1948 ml Capillary Refill : Less Than 3 Seconds General Appearance: No Apparent Distress, WD/WN HEENT: PERRL/EOMI Neck: Non Tender, Supple Respiratory: Chest Non Tender, Lungs Clear, Normal Breath Sounds, No Accessory Muscle Use, No Respiratory Distress Cardiovascular: Regular Rate, Rhythm Extremity: No Calf Tenderness, Pedal Edema Neurologic/Psychiatric: Alert, Oriented x3 Skin: Warm/Dry Results Lab Laboratory Tests 04/09/20 16:35: Glucometer 166H 04/10/20 03:50: White Blood Count 14.6H, Red Blood Count 3.09L, Hemoglobin 9.7L, Hematocrit 30L, Mean Corpuscular Volume 96, Mean Corpuscular Hemoglobin 31, Mean Corpuscular Hemoglobin Concent 33, Red Cell Distribution Width 12.9, Platelet Count 232, Mean Platelet Volume 11.1H, Sodium Level 138, Potassium Level 4.6, Chloride Level 113H, Carbon Dioxide Level 15L, Anion Gap 10, Blood Urea Nitrogen 37H, Creatinine 1.72H, Estimat Glomerular Filtration Rate 28, BUN/Creatinine Ratio 22, Glucose Level 146H, Calcium Level 8.1L, Magnesium Level 1.5L Microbiology 04/09/20 MRSA Screen - Final, Complete MRSA not isolated Assessment/Plan Assessment/Plan Assessment/Plan 04/10/20- s/p day 1 ostomy take down and bowel reanastomosis -IVF for acute on chronic renal failure- will need to back off fluids tomorrow if Cr improves. Monitor urine output. -holding lisinopril- may restart if Cr improves and blood pressure is elevated. Otherwise will hold. Dispo: Patient is in good spirits; continue to monitor progress and mood. Clinical Quality Measures DVT/VTE Risk/Contraindication: Risk Factor Score Per Nursin RFS Level Per Nursing on Admit: 4+=Very High NAJMA SANTOS DO 04/11/20 1149: Subjective Subjective/Events-last exam Patient has episode of hypoxia postoperatively placed on bipap and moved to ICU. She states she is doing well now. Pain controlled. No bowel function. Using IS some. Denies n/v fever sweats chills shorntess of breath or chest pain. Objective Exam General Appearance: No Apparent Distress, WD/WN HEENT: PERRL/EOMI, Normal ENT Inspection Neck: Non Tender, Supple Respiratory: Chest Non Tender, No Accessory Muscle Use, No Respiratory Distress Cardiovascular: Regular Rate, Rhythm Gastrointestinal: soft, tenderness (incisional incisions c/d/i) Extremity: No Calf Tenderness, Pedal Edema Neurologic/Psychiatric: Alert, Oriented x3 Skin: Normal Color, Warm/Dry Lymphatic: No Adenopathy Assessment/Plan Assessment/Plan Assessment/Plan s/p lap hand assisted colostomy take down and EEA hypoxia improved with bipap, possibly from anesthesia villalba for accurate i/o pain control await bowel function monitor in icu Supervisory-Addendum Brief Verification & Attestation Participated in pt care: history, MDM, physical Personally performed: exam, history, MDM, supervision of care Care discussed with: Medical Student Procedures: n/a Results interpretation: Verified all documentation Verification and Attestation of Medical Student E/M Service A medical student performed and documented this service in my presence. I reviewed and verified all information documented by the medical student and made modifications to such information, when appropriate. I personally performed the physical exam and medical decision making. Najma Santos, Apr 10, 2020,18:47 MORENITA PHILIP STUDENT Apr 10, 2020 16:35 NAJMA SANTOS DO Apr 11, 2020 11:49
[2020-04-10] MEDS: AMITRIPTYLINE 10 MG (ELAVIL) TAB PO SCH (20:18)
[2020-04-10] MEDS ORDERED: SIMvastatin 40 MG (ZOCOR) TAB PO SCH (21:00)
[2020-04-10] MEDS ORDERED: D5W 100 ML IVPB 100 ML IV ONE (22:59)
[2020-04-10] MEDS ORDERED: AMIODARONE (OMNICELL DRIP KIT) 150 MG/3 ML IV ONE (22:59)
[2020-04-10] MEDS ORDERED: AMIODARONE 450 MG/9 ML (CORDARONE) VIAL IV ONE (23:02)
[2020-04-10] MEDS ORDERED: D5W IV SOLUTION (EXCEL) 250 ML IV ONE (23:02)
[2020-04-10] MEDS ORDERED: dilTIAZem DRIP PRE-MIX 125 ML IV ONE (23:04)
[2020-04-10] MEDS ORDERED: dilTIAZem DRIP PRE-MIX 125 ML IV SCH (23:15)
[2020-04-10] MEDS ORDERED: AMIODARONE INJECTION 150 MG in D5W 100 ML IVPB 100 ML IV ONE (23:15)
[2020-04-10] MEDS: AMIODARONE INJECTION 450 MG in D5W IV SOLUTION (EXCEL) 250 ML IV SCH (23:24)
[2020-04-10] MEDS: APIXABAN 5 MG (ELIQUIS) TABLET PO SCH (23:25)
--- NOTE | 2020-04-10 23:38 | NUR ---
Patient went into AFIB RVR at 160-170s HR. EKG obtained, teleICU notified and orders received to consult cardiology. Dr. Salgado consulted and orders received for cardizem bolus and cardizem drip to be initiated as well as amiodarone bolus and amiodarone drip to be initiatedm, echo ordered for in the morning and to keep patient NPO for possible [place]/Cardioversion. Eliquis also ordered and verified with Dr. Luis to ensure no contraindications. Patient converted to SR at HR of 75 after cardizem bolus and during amiodarone bolus. Dr. Salgado notified. Will continue to monitor.
[2020-04-11] VITALS (23 sets, daily range): BP systolic 114–172; BP diastolic 39–100
[2020-04-11] MEDS: RT-ALBUTEROL/IPRATROPIUM 3 ML (DUONEB) VIAL INH SCH ×4 (02:41→20:18)
[2020-04-11] MEDS: NS IV 1000 ML 1,000 ML IV SCH ×2 (05:08→13:06)
[2020-04-11 05:23] LABS: BASOPHILS % (AUTO) 0 % (0-10); EOSINOPHILS # (AUTO) 0.1 10^3/uL (0.0-0.3); EOSINOPHILS % (AUTO) 1 % (0-10); HEMATOCRIT 27 % (35-52); HEMOGLOBIN 8.7 G/DL (11.5-16.0); LYMPHOCYTES % (AUTO) 15 % (12-44); MEAN CORPUSCULAR HEMOGLOBIN 32 PG (25-34); MEAN CORPUSCULAR HGB CONC 33 G/DL (32-36); MEAN CORPUSCULAR VOLUME 99 FL (80-99); MONOCYTES # (AUTO) 1.9 X 10^3 (0.0-1.0); MONOCYTES % (AUTO) 14 % (0-12); NEUTROPHILS # (AUTO) 9.4 X 10^3 (1.8-7.8); NEUTROPHILS % (AUTO) 70 % (42-75); PLATELET COUNT 194 10^3/uL (130-400); RED CELL DISTRIBUTION WIDTH 13.5 % (10.0-14.5); WHITE BLOOD COUNT 13.4 10^3/uL (4.3-11.0)
[2020-04-11 05:53] LABS: ALBUMIN 2.9 GM/DL (3.2-4.5)
[2020-04-11 05:54] LABS: POTASSIUM 4.2 MMOL/L (3.6-5.0)
[2020-04-11 05:55] LABS: CALCIUM 7.7 MG/DL (8.5-10.1)
[2020-04-11 05:59] LABS: CREATININE SERUM 1.65 MG/DL (0.60-1.30); PHOSPHORUS 3.3 MG/DL (2.3-4.7)
[2020-04-11] MEDS: AMIODARONE INJECTION 450 MG in D5W IV SOLUTION (EXCEL) 250 ML IV SCH (07:48)
[2020-04-11] MEDS: APIXABAN 5 MG (ELIQUIS) TABLET PO SCH ×2 (08:29→20:09)
[2020-04-11] MEDS: dilTIAZem120 MG (CARDIZEM CD) CAP PO SCH (08:29)
[2020-04-11] MEDS: LEVOTHYROXINE 50 MCG (LEVOTHROID) TAB PO SCH (08:29)
[2020-04-11] MEDS: GABAPENTIN 300 MG (NEURONTIN) CAP PO SCH ×3 (08:29→20:09)
--- NOTE | 2020-04-11 09:32 | Physical Therapy Daily Note ---
PT Daily Note-Current Subjective smiling at this therapist. Agrees to PT to get up to the chair. Mental Status Patient Orientation: Person, Place, Time, Situation Attachments: Chen Catheter, IV monitors Transfers SCALE: Activities may be completed with or without assistive devices. 7-Ipnnmvufpb-nszthxy completes the activity by him/herself with no assistance from a helper. 5-Set-up or Clean-up Assistance-helper sets up or cleans up; patient completes activity. Christine assists only prior to or following the activity. 4-Supervision or Touching Assistance-helper provides verbal cues and/or touching/steadying and/or contact guard assistance as patient completes activity. Assistance may be provided throughout the activity or intermittently. 3-Partial/Moderate Assistance-helper does LESS THAN HALF the effort. Christine lifts, holds or supports trunk or limbs, but provides less than half the effort. 2-Substantial/Maximal Assistance-helper does MORE THAN HALF the effort. Christine lifts or holds trunk or limbs and provides more than half the effort. 4-Lozimfhcp-dmxagl does ALL the effort. Patient does none of the effort to complete the activity. Or, the assistance of 2 or more helpers is required for the patient to complete the activity. If activity was not attempted, code reason: 7-Patient Refused. 9-Not Applicable-not attempted and the patient did not perform the activity before the current illness, exacerbation or injury. 10-Not Attempted due to Environmental Limitations-(lack of equipment, weather restraints, etc.). 88-Not Attempted due to Medical Conditions or Safety Concerns. Roll Left & Right (QC): 2 Lying to Sitting/Side of Bed(Q: 2 (needs mod assist to get to the edge of bed with cues and tactile assist) Sit to Stand (QC): 3 (cues for hand placement and sequencing) Chair/Ypr-eu-Jjgbn Xfer(QC): 3 (FWW with CGA with cues for safety.) Up in chair with needs met. Nursing notified. Weight Bearing Right Lower Extremity: Right Weight Bearing/Tolerated Left Lower Extremity: Left Weight Bearing/Tolerated Assessment Current Status: Good Progress Very pleasant and agreeable. Tolerated well. PT Short Term Goals Short Term Goals Time Frame: Apr 14, 2020 Roll Left & Right: 6 Sit to lyin Lying to sitting on side of be: 6 PT Residential Goals Cnc Machine Operator Goals PT Cnc Machine Operator Goals Time Frame: Apr 17, 2020 Roll Left & Right (QC): 6 Sit to Lying (QC): 6 Lying-Sitting on Side/Bed(QC): 6 Sit to Stand (QC): 6 Chair/Gqg-gc-[place] Xfer(QC): 6 Toilet Transfer (QC): 6 Car Transfer (QC): 6 Does the Patient Walk: Yes Walk 10 feet (QC): 6 Walk 50ft with 2 Turns (QC): 6 Walk 150 ft (QC): 6 Walking 10ft on Uneven Surface: 5 1 Step (curb) (QC): 6 4 Steps (QC): 6 12 Steps (QC): 6 Picking up an Object (QC): 6 Does the Pt use WC or Scooter?: No Type: N/A Type: N/A PT Plan Problem List Problem List: Activity Tolerance, Functional Strength, Safety, Balance, Gait, Transfer, Bed Mobility Treatment/Plan Treatment Plan: Continue Plan of Care Treatment Plan: Bed Mobility, Education, Functional Activity Chuyita, Functional Strength, Gait, Safety, Therapeutic Exercise, Transfers Treatment Duration: Apr 17, 2020 Frequency: 6 times per week Estimated Hrs Per Day: .25 hour per day Patient and/or Family Agrees t: Yes Safety Risks/Education Patient Education: Transfer Techniques Teaching Recipient: Patient Teaching Methods: Demonstration, Discussion Response to Teaching: Reinforcement Needed Discharge Recommendations Therapy Discharge Recommendati: Post Acute PT Time/GCodes Time In: 845 Time Out: 900 Total Billed Treatment Time: 15 Total Billed Treatment visit FA 15 SPENCER MUÑOZ PT Apr 11, 2020 09:32
[2020-04-11] MEDS ORDERED: KCL 20 MEQ TAB (K-DUR) PO NR (10:45)
[2020-04-11] MEDS ORDERED: FUROSEMIDE 40 MG/4 ML INJ (LASIX) IVP NR (10:45)
--- NOTE | 2020-04-11 10:52 | Progress Note ---
Subjective Date Seen by a Provider: Apr 11, 2020 Time Seen by a Provider: 10:46 Subjective/Events-last exam Fwup ostomy reversal, acute on chronic renal failure, hypertension. Went into A fib last night and was given amiodarone bolus and started on a drip and converted back to a NSR. States having bowel sounds but no flatus yet. Objective Exam Vital Signs Date Time Temp Pulse Resp B/P (MAP) Pulse Ox O2 Delivery O2 Flow Rate FiO2 04/11/20 10:17 97 Room Air 04/11/20 09:00 71 20 172/62 (98) 97 Room Air 04/11/20 08:50 Room Air 04/11/20 08:42 36.8 04/11/20 08:00 69 20 155/62 (93) 92 Room Air 04/11/20 07:00 77 04/11/20 07:00 69 20 148/58 (88) 95 Room Air 04/11/20 06:00 72 20 141/39 (73) 96 Room Air 04/11/20 05:00 71 21 143/52 (82) 95 Room Air 04/11/20 04:30 36.6 04/11/20 04:00 68 19 141/53 (82) 93 Room Air 04/11/20 04:00 94 Room Air 04/11/20 03:00 67 21 137/44 (75) 96 Room Air 04/11/20 02:41 95 Room Air 04/11/20 02:00 69 18 114/49 (70) 97 Room Air 04/11/20 01:00 66 04/11/20 01:00 69 19 127/56 (79) 90 Room Air 04/11/20 00:00 36.8 04/11/20 00:00 96 Room Air 04/11/20 00:00 74 20 115/54 (74) 93 Room Air 04/10/20 23:00 170 19 119/75 (90) 96 Room Air 04/10/20 22:00 73 20 146/68 (94) 94 Room Air 04/10/20 21:05 93 Room Air 04/10/20 21:00 74 17 151/59 (89) 95 Room Air 04/10/20 20:00 37.8 04/10/20 20:00 75 21 168/57 (94) 96 Room Air 04/10/20 19:45 Simple Mask 04/10/20 19:00 77 04/10/20 19:00 76 22 148/55 (86) 97 Room Air 04/10/20 18:00 75 19 159/61 (93) 96 Room Air 04/10/20 17:00 73 19 151/62 (91) 97 Room Air 04/10/20 16:00 36.2 04/10/20 16:00 96 Room Air 04/10/20 16:00 70 20 153/55 (87) 95 Room Air 04/10/20 15:24 100 Room Air 04/10/20 15:00 81 11 141/74 (96) 70 Room Air 04/10/20 14:00 68 19 122/110 (114) 97 Room Air 04/10/20 13:27 65 04/10/20 13:00 61 13 96 Room Air 04/10/20 12:29 96 Room Air 04/10/20 12:00 36.7 04/10/20 12:00 66 26 124/45 (71) 97 Room Air 04/10/20 11:00 68 23 125/53 (77) 94 Room Air I & O 04/11/20 07:00 Intake Total 2623 ml Output Total 920 ml Balance 1703 ml Capillary Refill : Less Than 3 Seconds General Appearance: No Apparent Distress Neck: Supple Respiratory: Decreased Breath Sounds Cardiovascular: Regular Rate, Rhythm, Systolic Murmur Gastrointestinal: non tender, soft, abnormal bowel sounds, other (dressings in place and dry) Extremity: Non Tender, No Calf Tenderness, Pedal Edema Neurologic/Psychiatric: Alert, Oriented x3 Skin: Warm/Dry Results Lab Laboratory Tests 04/11/20 05:05: White Blood Count 13.4H, Red Blood Count 2.72L, Hemoglobin 8.7L, Hematocrit 27L, Mean Corpuscular Volume 99, Mean Corpuscular Hemoglobin 32, Mean Corpuscular Hemoglobin Concent 33, Red Cell Distribution Width 13.5, Platelet Count 194, Mean Platelet Volume 11.0H, Neutrophils (%) (Auto) 70, Lymphocytes (%) (Auto) 15, Monocytes (%) (Auto) 14H, Eosinophils (%) (Auto) 1, Basophils (%) (Auto) 0, Neutrophils # (Auto) 9.4H, Lymphocytes # (Auto) 2.0, Monocytes # (Auto) 1.9H, Eosinophils # (Auto) 0.1, Basophils # (Auto) 0.0, Sodium Level 138, Potassium Level 4.2, Chloride Level 114H, Carbon Dioxide Level 17L, Anion Gap 7, Blood Urea Nitrogen 36H, Creatinine 1.65H, Estimat Glomerular Filtration Rate 30, BUN/Creatinine Ratio 22, Glucose Level 122H, Calcium Level 7.7L, Phosphorus Level 3.3, Magnesium Level 2.0, Albumin 2.9L Microbiology 04/09/20 MRSA Screen - Final, Complete MRSA not isolated Assessment/Plan Assessment/Plan Assess & Plan/Chief Complaint 1. Colonic reanastomosis--NPO, no flatus yet, increase activity 2. Acute on Chronic Renal Failure--Cr improving 3. Hypertension--started on metoprolol and diltiazem 4. Paroxysmal Atrial Fibrillation--on amidodarone drip, back to NSR, on eliquis 5. Edema--give low dose IV lasix 6. Hypokalemia/Hyponatremia--on replacement protocols 7. Hypothyroidism--levothyroxine restarted Clinical Quality Measures DVT/VTE Risk/Contraindication: Risk Factor Score Per Nursin RFS Level Per Nursing on Admit: 4+=Very High BILL FAN DO Apr 11, 2020 10:52
--- NOTE | 2020-04-11 11:12 | Diagnostic Imaging Report ---
INDICATION: Cough, leukocytosis. TECHNIQUE: Single view chest 10:51 AM. CORRELATION STUDY: 09/11/2019 FINDINGS: Bibasilar areas of atelectasis and/or infiltrate particularly at the right lung base are present. Heart size is enlarged. Mediastinum is stable. Vasculature is relatively normal at follow-up. IMPRESSION: 1. Bibasilar areas of atelectasis. Superposed infiltrate in the right lung base not excluded. Dictated by: Dictated on workstation # [id number]
[2020-04-11 11:20] LABS: BILIRUBIN,URINE NEGATIVE (NEGATIVE); CLARITY,URINE CLEAR; COLOR,URINE YELLOW; GLUCOSE, URINE (UA) NEGATIVE (NEGATIVE); KETONES,URINE NEGATIVE (NEGATIVE); LEUKOCYTE ESTERASE ,URINE 1+ (NEGATIVE); NITRITE,URINE NEGATIVE (NEGATIVE); PH,URINE 5.5 (5-9); PROTEIN,URINE 1+ (NEGATIVE)
--- NOTE | 2020-04-11 11:20 | NUR ---
chest xray results given to dr trimble.
--- NOTE | 2020-04-11 11:22 | Progress Note - Surgery ---
BIBI IZQUIERDO MED STUDENT 04/11/20 1122: Subjective Date Seen by a Provider: Apr 11, 2020 Time Seen by a Provider: 08:35 Subjective/Events-last exam Ms. Wolff was seen and examined this morning and was quite pleasant. She said she felt great and had no abdominal pain. She denies onset of flatulence or bowel movements. She denies shortness of breath, chest pain, N/V, and fevers and chills. She reports regular use of incentive spirometer. Objective Exam Vital Signs Date Time Temp Pulse Resp B/P (MAP) Pulse Ox O2 Delivery O2 Flow Rate FiO2 04/11/20 11:00 66 15 152/50 (84) 98 Room Air 04/11/20 10:17 97 Room Air 04/11/20 10:00 61 18 145/41 (75) 96 Room Air 04/11/20 09:00 71 20 172/62 (98) 97 Room Air 04/11/20 08:50 Room Air 04/11/20 08:42 36.8 04/11/20 08:00 69 20 155/62 (93) 92 Room Air 04/11/20 07:00 77 04/11/20 07:00 69 20 148/58 (88) 95 Room Air 04/11/20 06:00 72 20 141/39 (73) 96 Room Air 04/11/20 05:00 71 21 143/52 (82) 95 Room Air 04/11/20 04:30 36.6 04/11/20 04:00 68 19 141/53 (82) 93 Room Air 04/11/20 04:00 94 Room Air 04/11/20 03:00 67 21 137/44 (75) 96 Room Air 04/11/20 02:41 95 Room Air 04/11/20 02:00 69 18 114/49 (70) 97 Room Air 04/11/20 01:00 66 04/11/20 01:00 69 19 127/56 (79) 90 Room Air 04/11/20 00:00 36.8 04/11/20 00:00 96 Room Air 04/11/20 00:00 74 20 115/54 (74) 93 Room Air 04/10/20 23:00 170 19 119/75 (90) 96 Room Air 04/10/20 22:00 73 20 146/68 (94) 94 Room Air 04/10/20 21:05 93 Room Air 04/10/20 21:00 74 17 151/59 (89) 95 Room Air 04/10/20 20:00 37.8 04/10/20 20:00 75 21 168/57 (94) 96 Room Air 04/10/20 19:45 Simple Mask 04/10/20 19:00 77 04/10/20 19:00 76 22 148/55 (86) 97 Room Air 04/10/20 18:00 75 19 159/61 (93) 96 Room Air 04/10/20 17:00 73 19 151/62 (91) 97 Room Air 04/10/20 16:00 36.2 04/10/20 16:00 96 Room Air 04/10/20 16:00 70 20 153/55 (87) 95 Room Air 04/10/20 15:24 100 Room Air 04/10/20 15:00 81 11 141/74 (96) 70 Room Air 04/10/20 14:00 68 19 122/110 (114) 97 Room Air 04/10/20 13:27 65 04/10/20 13:00 61 13 96 Room Air 04/10/20 12:29 96 Room Air 04/10/20 12:00 36.7 04/10/20 12:00 66 26 124/45 (71) 97 Room Air I & O 04/11/20 07:00 Intake Total 2623 ml Output Total 920 ml Balance 1703 ml Capillary Refill : Less Than 3 Seconds General Appearance: No Apparent Distress HEENT: PERRL/EOMI Neck: Supple Respiratory: Decreased Breath Sounds Cardiovascular: Regular Rate, Rhythm, Systolic Murmur Gastrointestinal: non tender, soft, abnormal bowel sounds, other (dressings in place and dry) Extremity: Non Tender, No Calf Tenderness, Pedal Edema Neurologic/Psychiatric: Alert, Oriented x3 Skin: Warm/Dry Results Lab Laboratory Tests 04/11/20 05:05: White Blood Count 13.4H, Red Blood Count 2.72L, Hemoglobin 8.7L, Hematocrit 27L, Mean Corpuscular Volume 99, Mean Corpuscular Hemoglobin 32, Mean Corpuscular Hemoglobin Concent 33, Red Cell Distribution Width 13.5, Platelet Count 194, Mean Platelet Volume 11.0H, Neutrophils (%) (Auto) 70, Lymphocytes (%) (Auto) 15, Monocytes (%) (Auto) 14H, Eosinophils (%) (Auto) 1, Basophils (%) (Auto) 0, Neutrophils # (Auto) 9.4H, Lymphocytes # (Auto) 2.0, Monocytes # (Auto) 1.9H, Eosinophils # (Auto) 0.1, Basophils # (Auto) 0.0, Sodium Level 138, Potassium Level 4.2, Chloride Level 114H, Carbon Dioxide Level 17L, Anion Gap 7, Blood Urea Nitrogen 36H, Creatinine 1.65H, Estimat Glomerular Filtration Rate 30, BUN/Creatinine Ratio 22, Glucose Level 122H, Calcium Level 7.7L, Phosphorus L evel 3.3, Magnesium Level 2.0, Albumin 2.9L Microbiology 04/09/20 MRSA Screen - Final, Complete MRSA not isolated Assessment/Plan Assessment/Plan Assessment/Plan Colonic reanastomosis--NPO, no flatus yet, increase activity Clinical Quality Measures DVT/VTE Risk/Contraindication: Risk Factor Score Per Nursin RFS Level Per Nursing on Admit: 4+=Very High BRADY BECK DO 04/11/20 1638: Subjective Time Seen by a Provider: 12:44 Subjective/Events-last exam Pt seen and examined, states she is doing great. Denies flatus or BM. Review of Systems Pulmonary: No Dyspnea, No Cough Cardiovascular: No: Chest Pain, Palpitations Gastrointestinal: No: Nausea, Vomiting, Abdominal Pain Objective Exam HEENT: PERRL/EOMI, Moist Mucous Membranes Respiratory: No Respiratory Distress, Decreased Breath Sounds Cardiovascular: Regular Rate, Rhythm, Systolic Murmur Gastrointestinal: soft, other (dressings in place and dry) Assessment/Plan Assessment/Plan Assessment/Plan S/P colostomy reversal Pt encouraged to ambulate and use IS, will d/c villalba and continue current diet. Supervisory-Addendum Brief Verification & Attestation Participated in pt care: history, MDM, physical Personally performed: exam, history, MDM Care discussed with: Medical Student Procedures: n/a Verification and Attestation of Medical Student E/M Service A medical student performed and documented this service. I then reviewed and verified all information documented by the medical student and made modifications to such information, when appropriate. I personally performed a physical exam, medical decision making and then discussed any differences between the notes and made revisions as necessary to create one note. Brady Beck , 04/11/20 , 16:37 BIBI IZQUIERDO MED STUDENT Apr 11, 2020 11:22 BRADY BECK DO Apr 11, 2020 16:38
[2020-04-11 11:29] LABS: BACTERIA,URINE MODERATE /HPF; WBC,URINE 50-100 /HPF
[2020-04-11] MEDS ORDERED: PIPERACILLIN/TAZO 4.5 GM/NS 100 ML IV NR ×2 (11:30)
--- NOTE | 2020-04-11 14:29 | Consultation-Cardiology ---
HPI-Cardiology Cardiology Consultation: Date of Consultation 04/11/20 Date of Admission Attending Physician Tommy Santos DO Admitting Physician Cody Gómez MD Consulting Physician Jose SALGADO MD HPI: Time Seen by a Provider: 12:00 Chief Complaint: Atrial fibrillation This is a 79-year-old lady who has had recent abdominal surgery. History of chronic kidney disease, hypertension, GERD, type II diabetes, chronic congestive diastolic heart failure. She had an episode of atrial fibrillation overnight. Was given amiodarone and Cardizem. Amiodarone infusion continued. She subsequently converted to sinus rhythm. When I saw her in the morning she was in sinus rhythm. She denies active smoking and pertinent family history is negative. She denies any cardiac complaints on my visit. She specifically denies previous history of syncope, near-syncope or palpitations. Review of Systems-Cardiology Review of Systems Constitutional: As described under HPI; No As described under HPI, No no symptoms reported, No chills, No fever, No lightheadedness Eyes: No As described under HPI, No no symptoms reported, No blindness, No blur red vision, No contact lenses, No drainage, No decreased acuity, No foreign body sensation, No pain, No vision change Ears/Nose/Throat: No As described under HPI, No no symptoms reported, No chronic hearing loss, No ear discharge, No ear pain, No nasal drainage, No ulcerations Respiratory: No no symptoms reported; As described under HPI; No As described under HPI, No cough, No orthopnea, No shortness of breath, No SOB with excertion Cardiovascular: No no symptoms reported; As described under HPI; No As described under HPI, No chest pain, No edema, No irregular heart rate, No lightheadedness; palpitations Gastrointestinal: No no symptoms reported, No As described under HPI, No abdomen distended, No abdominal pain, No blood streaked bowels, No constipation, No diarrhea, No nausea, No vomiting, No stool coloration changes Genitourinary: No As described under HPI, No burning, No dysuria, No discharge, No frequency, No flank pain, No hematuria, No urgency : Yes : No Skin: No rash, No skin related problems, No ulcerations Psychiatric/Neurological: No anxiety, No depression, No seizure, No focal weakness, No syncope Hematologic: No bleeding abnormalities PIX-Oaiexq-Synvap Hx Patient Social History Alcohol Use: Denies Use Recreational Drug Use: No Type Used: Cigarettes 2nd Hand Smoke Exposure: No Recent Foreign Travel: No Physical Abuse Screen: No Sexual Abuse: No Immunizations Up To Date Tetanus Booster (TDap): Unknown Date of Pneumonia Vaccine: Aug 28, 2013 Date of Influenza Vaccine: Jun 05, 2019 Past Medical History PMH As described under Assessment. Allergies and Home Medications Allergies Coded Allergies: Sulfa (Sulfonamide Antibiotics) (Verified Allergy, Mild, ITCHING/SWOLLEN HANDS, 04/06/20) Home Medications Amitriptyline HCl 10 Mg Tablet, 10 MG PO HS, (Reported) Aspirin 81 Mg Tablet.dr, 81 MG PO BID, (Reported) Furosemide 20 Mg Tablet, 20 MG PO DAILY PRN for SWELLING, (Reported) Gabapentin 300 Mg Capsule, 300 MG PO TID, (Reported) Levothyroxine Sodium 50 Mcg Tablet, 50 MCG PO DAILY, (Reported) Lisinopril 10 Mg Tablet, 10 MG PO DAILY, (Reported) Metoprolol Succinate 25 Mg Tab.er.24h, 25 MG PO DAILY, (Reported) Simvastatin 40 Mg Tablet, 40 MG PO HS, (Reported) Vit C/E/Zn/Coppr/Lutein/Zeaxan 1 Each Capsule, 1 EACH PO BID, (Reported) Patient Home Medication List Home Medication List Reviewed: Yes Physical Exam-Cardiology Physical Exam Vital Signs/I&O 04/11/20 04/11/20 04/11/20 04/11/20 02:41 03:00 04:00 04:00 Pulse 67 68 Resp 21 19 B/P (MAP) 137/44 (75) 141/53 (82) Pulse Ox 95 96 94 93 O2 Delivery Room Air Room Air Room Air Room Air 04/11/20 04/11/20 04/11/20 04/11/20 04:30 05:00 06:00 07:00 Temp 36.6 Pulse 71 72 69 Resp 21 20 20 B/P (MAP) 143/52 (82) 141/39 (73) 148/58 (88) Pulse Ox 95 96 95 O2 Delivery Room Air Room Air Room Air 04/11/20 04/11/20 04/11/20 04/11/20 07:00 08:00 08:42 08:50 Temp 36.8 Pulse 77 69 Resp 20 B/P (MAP) 155/62 (93) Pulse Ox 92 O2 Delivery Room Air Room Air 04/11/20 04/11/20 04/11/20 04/11/20 09:00 10:00 10:17 11:00 Pulse 71 61 66 Resp 20 18 15 B/P (MAP) 172/62 (98) 145/41 (75) 152/50 (84) Pulse Ox 97 96 97 98 O2 Delivery Room Air Room Air Room Air Room Air 04/11/20 04/11/20 04/11/20 04/11/20 11:22 12:00 13:00 13:01 Pulse 61 59 60 Resp 20 19 B/P (MAP) 155/55 (88) 137/44 (75) Pulse Ox 97 97 O2 Delivery Room Air Room Air Room Air 04/11/20 00:00 Intake Total 1303 ml Output Total 600 ml Balance 703 ml Capillary Refill : Less Than 3 Seconds Constitutional: appears stated age, AAO x 3; No apparent distress; well-devel oped, well-nourished HEENT: PERRL; No discharge; hearing is well preserved, oral hygience is good; No ulceration, No xanthelasmas are seen Neck: No carotid bruit; carotid pulses are 2 + bilaterally Respiratory: chest is bilaterally symmetric, lungs clear to auscultation Cardiovascular: regular rate-rhythm, S1 and S2 Gastrointestinal: soft, audible bowel sounds; No spleenomegaly Rectal: deferred Extremities: normal range of motion, non-tender, normal inspection; No clubbing, No cyanosis; no lower extremity edema bilateral; No significant edema Neurologic/Psychiatric: no motor/sensory deficits, alert, normal mood/affect, oriented x 3, power is 5/5 both on sides Skin: normal color; No rash, No ulcerations Data Review Labs Laboratory Tests 04/11/20 05:05: White Blood Count 13.4H, Red Blood Count 2.72L, Hemoglobin 8.7L, Hematocrit 27L, Mean Corpuscular Volume 99, Mean Corpuscular Hemoglobin 32, Mean Corpuscular Hemoglobin Concent 33, Red Cell Distribution Width 13.5, Platelet Count 194, Mean Platelet Volume 11.0H, Neutrophils (%) (Auto) 70, Lymphocytes (%) (Auto) 15, Monocytes (%) (Auto) 14H, Eosinophils (%) (Auto) 1, Basophils (%) (Auto) 0, Neutrophils # (Auto) 9.4H, Lymphocytes # (Auto) 2.0, Monocytes # (Auto) 1.9H, Eosinophils # (Auto) 0.1, Basophils # (Auto) 0.0, Sodium Level 138, Potassium Level 4.2, Chloride Level 114H, Carbon Dioxide Level 17L, Anion Gap 7, Blood Urea Nitrogen 36H, Creatinine 1.65H, Estimat Glomerular Filtration Rate 30, BUN/Creatinine Ratio 22, Glucose Level 122H, Calcium Level 7.7L, Phosphorus Level 3.3, Magnesium Level 2.0, Albumin 2.9L 04/11/20 10:55: Urine Color YELLOW, Urine Clarity CLEAR, Urine pH 5.5, Urine Specific [place] 1.015L, Urine Protein 1+H, Urine Glucose (UA) NEGATIVE, Urine Ketones NEGATIVE, Urine Nitrite NEGATIVE, Urine Bilirubin NEGATIVE, Urine Urobilinogen 0.2, Urine Leukocyte Esterase 1+H, Urine RBC (Auto) 1+H, Urine RBC NONE, Urine WBC 50-100H, Urine Crystals NONE, Urine Bacteria MODERATEH, Urine Casts NONE, Urine Mucus NEGATIVE, Urine Culture Indicated YES Microbiology 04/09/20 MRSA Screen - Final, Complete MRSA not isolated A/P-Cardiology Assessment/Admission Diagnosis Persistent atrial fibrillation, currently in sinus rhythm. Recent abdominal surgery, Hypertension, Hyperlipidemia, Type II diabetes, GERD, Chronic diastolic congestive heart failure, Chronic kidney disease stage IV Plan Persistent atrial fibrillation, currently in sinus rhythm. Complete IV amioda javan infusion. After that we will discontinue amiodarone. Continue Cardizem CD 120 mg daily. Eliquis was started after surgical clearance. Discussed about atrial fibrillation. Recent abdominal surgery, deferred to the surgical team. Hypertension, continue outpatient medical therapy as per Dr. Gómez and the medicine team. Hyperlipidemia, on statin therapy. Type II diabetes, GERD, Chronic diastolic congestive heart failure, no florid congestive heart failure on my examination. Echocardiogram does show moderate diastolic dysfunction. Chronic kidney disease stage IV, will require nephrology follow-up. Thank you for your consultation. Please call me if you have any questions. Giuliano Salgado MD, FACP, FACC, FSCAI, FHRS, CCDS Interventional Cardiology Cardiac Electrophysiology Vascular Medicine and Endovascular Interventions Clinical Quality Measures DVT/VTE Risk/Contraindication: Risk Factor Score Per Nursin RFS Level Per Nursing on Admit: 4+=Very High Jose SALGADO MD Apr 11, 2020 14:29
--- NOTE | 2020-04-11 15:00 | NUR ---
REPORT GIVEN TO DORA LOEV WHO ASSUMES CARE OF PT, NO QUESTIONS/CONCERNS VOICED.
[2020-04-11] MEDS: PIPERACILLIN/TAZOBACTAM (BULK) 4.5 GM in NS (IVPB) 100 ML IV SCH (17:27)
[2020-04-11] MEDS: AMITRIPTYLINE 10 MG (ELAVIL) TAB PO SCH (20:09)
[2020-04-11] MEDS: HYDROcodone/APAP 5 MG/325 MG (LORTAB) TAB PO PRN (22:16)
[2020-04-12] VITALS (14 sets, daily range): BP systolic 126–174; BP diastolic 42–102
[2020-04-12] MEDS: NS IV 1000 ML 1,000 ML IV SCH ×3 (00:07→18:17)
[2020-04-12] MEDS: RT-ALBUTEROL/IPRATROPIUM 3 ML (DUONEB) VIAL INH SCH ×5 (02:05→22:47)
[2020-04-12] MEDS: PIPERACILLIN/TAZOBACTAM (BULK) 4.5 GM in NS (IVPB) 100 ML IV SCH ×3 (02:39→18:17)
[2020-04-12 04:15] LABS: HEMOGLOBIN 9.1 G/DL (11.5-16.0); MEAN PLATELET VOLUME 10.9 FL (7.4-10.4); RED CELL DISTRIBUTION WIDTH 13.7 % (10.0-14.5); WHITE BLOOD COUNT 12.5 10^3/uL (4.3-11.0)
[2020-04-12 04:27] LABS: ALBUMIN 3.1 GM/DL (3.2-4.5)
[2020-04-12 04:29] LABS: CALCIUM 8.2 MG/DL (8.5-10.1)
[2020-04-12 04:30] LABS: TOTAL PROTEIN 5.7 GM/DL (6.4-8.2)
[2020-04-12 04:32] LABS: BILIRUBIN,TOTAL 0.4 MG/DL (0.1-1.0)
[2020-04-12 04:34] LABS: CREATININE SERUM 1.61 MG/DL (0.60-1.30)
[2020-04-12] MEDS: GABAPENTIN 300 MG (NEURONTIN) CAP PO SCH ×3 (07:59→20:06)
[2020-04-12] MEDS: APIXABAN 5 MG (ELIQUIS) TABLET PO SCH ×2 (08:00→20:06)
[2020-04-12] MEDS: KCL 20 MEQ TAB (K-DUR) PO SCH (08:00)
[2020-04-12] MEDS: dilTIAZem120 MG (CARDIZEM CD) CAP PO SCH (08:00)
[2020-04-12] MEDS: LEVOTHYROXINE 50 MCG (LEVOTHROID) TAB PO SCH (08:00)
--- NOTE | 2020-04-12 08:09 | Progress Note - Surgery ---
BIBI IZQUIERDO MED STUDENT 04/12/20 0809: Subjective Date Seen by a Provider: Apr 12, 2020 Time Seen by a Provider: 07:50 Subjective/Events-last exam Pt was sitting up in chair and quite pleasant when examined this morning. She reports no pain on or around incisional area and the appearance of incision has not changed since yesterday. Nursing staff mentioned that her bandage has not been changed since surgery occurred. She still has not passed gas or had a bowel movement. She states that she has been using her incentive spirometer. CXR yesterday noted bibasilar areas of atelectasis. She would like to move to the 4th floor and mentioned that she is getting tired of her diet. She denies N/V, fever, chills, shortness of breath and chest pain. Objective Exam Vital Signs Date Time Temp Pulse Resp B/P (MAP) Pulse Ox O2 Delivery O2 Flow Rate FiO2 04/12/20 07:09 75 04/12/20 07:00 73 20 157/66 (96) 97 Room Air 04/12/20 06:00 73 19 155/52 (86) 98 Room Air 04/12/20 05:00 78 19 145/59 (87) 94 Room Air 04/12/20 04:00 82 24 96 Room Air 04/12/20 04:00 Room Air 04/12/20 03:00 75 19 139/102 (114) 92 Room Air 04/12/20 02:05 100 Room Air 04/12/20 02:00 67 19 135/89 (104) 97 Room Air 04/12/20 01:00 65 18 153/42 (79) 95 Room Air 04/12/20 01:00 66 04/12/20 00:00 Room Air 04/12/20 00:00 65 15 152/56 (88) 94 Room Air 04/11/20 23:00 68 21 119/41 (67) 93 Room Air 04/11/20 22:00 74 20 161/59 (93) 96 Room Air 04/11/20 21:00 78 22 166/60 (95) 96 Room Air 04/11/20 20:31 97 04/11/20 20:18 97 Room Air 04/11/20 20:00 70 23 162/55 (90) 98 Room Air 04/11/20 20:00 Room Air 04/11/20 19:00 80 04/11/20 19:00 80 21 99 Room Air 04/11/20 18:00 68 22 154/63 (93) 98 Room Air 04/11/20 17:00 75 17 169/72 (104) Room Air 04/11/20 16:00 Room Air 04/11/20 16:00 66 18 150/62 (91) Room Air 04/11/20 15:02 97 Room Air 04/11/20 15:00 68 14 167/100 (122) Room Air 04/11/20 14:00 62 20 154/43 (80) 99 Room Air 04/11/20 13:01 60 04/11/20 13:00 59 19 137/44 (75) 97 Room Air 04/11/20 12:00 37.5 04/11/20 12:00 61 20 155/55 (88) 97 Room Air 04/11/20 11:22 Room Air 04/11/20 11:00 66 15 152/50 (84) 98 Room Air 04/11/20 10:17 97 Room Air 04/11/20 10:00 61 18 145/41 (75) 96 Room Air 04/11/20 09:00 71 20 172/62 (98) 97 Room Air 04/11/20 08:50 Room Air 04/11/20 08:42 36.8 I & O 04/12/20 06:59 Intake Total 1534 ml Output Total 2150 ml Balance -616 ml Capillary Refill : Less Than 3 Seconds General Appearance: No Apparent Distress, WD/WN HEENT: PERRL/EOMI Respiratory: No Respiratory Distress, Accessory Muscle Use, Decreased Breath Sounds (bibasilar atelectasis noted on CXR) Cardiovascular: Regular Rate, Rhythm Gastrointestinal: soft, other (dressings in place and dry) Extremity: No Calf Tenderness, Pedal Edema Neurologic/Psychiatric: Alert, Oriented x3 Skin: Normal Color, Warm/Dry Results Lab Laboratory Tests 04/11/20 10:55: Urine Color YELLOW, Urine Clarity CLEAR, Urine pH 5.5, Urine Specific [place] 1.015L, Urine Protein 1+H, Urine Glucose (UA) NEGATIVE, Urine Ketones NEGATIVE, Urine Nitrite NEGATIVE, Urine Bilirubin NEGATIVE, Urine Urobilinogen 0.2, Urine Leukocyte Esterase 1+H, Urine RBC (Auto) 1+H, Urine RBC NONE, Urine WBC 50-100H, Urine Crystals NONE, Urine Bacteria MODERATEH, Urine Casts NONE, Urine Mucus NEGATIVE, Urine Culture Indicated YES 04/12/20 04:00: White Blood Count 12.5H, Red Blood Count 2.90L, Hemoglobin 9.1L, Hematocrit 28L, Mean Corpuscular Volume 98, Mean Corpuscular Hemoglobin 31, Mean Corpuscular Hemoglobin Concent 32, Red Cell Distribution Width 13.7, Platelet Count 209, Mean Platelet Volume 10.9H, Sodium Level 140, Potassium Level 4.0, Chloride Level 116H, Carbon Dioxide Level 15L, Anion Gap 9, Blood Urea Nitrogen 29H, Creatinine 1.61H, Estimat Glomerular Filtration Rate 31, BUN/Creatinine Ratio 18, Glucose Level 118H, Calcium Level 8.2L, Corrected Calcium 8.9, Magnesium Level 2.0, Total Bilirubin 0.4, Aspartate Amino Transf (AST/SGOT) 17, Alanine Aminotransferase (ALT/SGPT) 8, Alkaline Phosphatase 113, Total Protein 5.7L, Al bumin 3.1L Microbiology 04/09/20 MRSA Screen - Final, Complete MRSA not isolated Assessment/Plan Assessment/Plan Assessment/Plan S/P colostomy reversal Clinical Quality Measures DVT/VTE Risk/Contraindication: Risk Factor Score Per Nursin RFS Level Per Nursing on Admit: 4+=Very High BRADY LUIS DO 04/12/20 1221: Subjective Time Seen by a Provider: 09:45 Subjective/Events-last exam Pt seen and examined, denies abdomial pain but also no flatus or BM. Review of Systems Cardiovascular: No: Chest Pain, Palpitations Gastrointestinal: No: Nausea, Vomiting Objective Exam General Appearance: No Apparent Distress, Obese Respiratory: No Respiratory Distress, Accessory Muscle Use, Decreased Breath Sounds (bibasilar atelectasis noted on CXR) Cardiovascular: Regular Rate, Rhythm Gastrointestinal: soft, other (dressings in place and dry, inc c/d/i) Assessment/Plan Assessment/Plan Assessment/Plan S/P colostomy reversal Pt encouraged to ambulate and will start on sips of clears. Told to use IS as well also. Supervisory-Addendum Brief Verification & Attestation Participated in pt care: history, MDM, physical Personally performed: exam, history, MDM Care discussed with: Medical Student Procedures: n/a Verification and Attestation of Medical Student E/M Service A medical student performed and documented this service. I then reviewed and verified all information documented by the medical student and made modifications to such information, when appropriate. I personally performed a physical exam, medical decision making and then discussed any differences between the notes and made revisions as necessary to create one note. Brady Luis , 04/12/20 , 12:21 BIBI IZQUIERDO MED STUDENT Apr 12, 2020 08:09 BRADY LUIS DO Apr 12, 2020 12:21
--- NOTE | 2020-04-12 09:27 | Progress Note ---
Subjective Date Seen by a Provider: Apr 12, 2020 Time Seen by a Provider: 09:22 Subjective/Events-last exam Fwup ostomy reversal, acute on chronic renal failure, hypertension, PAF, atelectesis. Sitting up in chair. Still no flatus. Off all drips--back in NSR. Objective Exam Vital Signs Date Time Temp Pulse Resp B/P (MAP) Pulse Ox O2 Delivery O2 Flow Rate FiO2 04/12/20 09:00 75 21 167/66 (99) 97 Room Air 04/12/20 08:27 Room Air 04/12/20 08:21 96 Room Air 04/12/20 08:17 36.9 04/12/20 08:00 71 17 164/70 (101) 98 Room Air 04/12/20 07:09 75 04/12/20 07:00 73 20 157/66 (96) 97 Room Air 04/12/20 06:00 73 19 155/52 (86) 98 Room Air 04/12/20 05:00 78 19 145/59 (87) 94 Room Air 04/12/20 04:00 82 24 96 Room Air 04/12/20 04:00 Room Air 04/12/20 03:00 75 19 139/102 (114) 92 Room Air 04/12/20 02:05 100 Room Air 04/12/20 02:00 67 19 135/89 (104) 97 Room Air 04/12/20 01:00 65 18 153/42 (79) 95 Room Air 04/12/20 01:00 66 04/12/20 00:00 Room Air 04/12/20 00:00 65 15 152/56 (88) 94 Room Air 04/11/20 23:00 68 21 119/41 (67) 93 Room Air 04/11/20 22:00 74 20 161/59 (93) 96 Room Air 04/11/20 21:00 78 22 166/60 (95) 96 Room Air 04/11/20 20:31 97 04/11/20 20:18 97 Room Air 04/11/20 20:00 70 23 162/55 (90) 98 Room Air 04/11/20 20:00 Room Air 04/11/20 19:00 80 04/11/20 19:00 80 21 99 Room Air 04/11/20 18:00 68 22 154/63 (93) 98 Room Air 04/11/20 17:00 75 17 169/72 (104) Room Air 04/11/20 16:00 Room Air 04/11/20 16:00 66 18 150/62 (91) Room Air 04/11/20 15:02 97 Room Air 04/11/20 15:00 68 14 167/100 (122) Room Air 04/11/20 14:00 62 20 154/43 (80) 99 Room Air 04/11/20 13:01 60 04/11/20 13:00 59 19 137/44 (75) 97 Room Air 04/11/20 12:00 37.5 04/11/20 12:00 61 20 155/55 (88) 97 Room Air 04/11/20 11:22 Room Air 04/11/20 11:00 66 15 152/50 (84) 98 Room Air 04/11/20 10:17 97 Room Air 04/11/20 10:00 61 18 145/41 (75) 96 Room Air I & O 04/12/20 07:00 Intake Total 1534 ml Output Total 2150 ml Balance -616 ml Capillary Refill : Less Than 3 Seconds General Appearance: No Apparent Distress Neck: Supple Respiratory: Crackles (right middle/base), Decreased Breath Sounds Cardiovascular: Regular Rate, Rhythm, Systolic Murmur, Gallop/S4 Gastrointestinal: non tender, soft, abnormal bowel sounds, other (dressings in place--dry) Extremity: Non Tender, No Calf Tenderness, Pedal Edema (mild ankles) Neurologic/Psychiatric: Alert, Oriented x3 Skin: Warm/Dry Results Lab Laboratory Tests 04/11/20 10:55: Urine Color YELLOW, Urine Clarity CLEAR, Urine pH 5.5, Urine Specific [place] 1.015L, Urine Protein 1+H, Urine Glucose (UA) NEGATIVE, Urine Ketones NEGATIVE, Urine Nitrite NEGATIVE, Urine Bilirubin NEGATIVE, Urine Urobilinogen 0.2, Urine Leukocyte Esterase 1+H, Urine RBC (Auto) 1+H, Urine RBC NONE, Urine WBC 50-100H, Urine Crystals NONE, Urine Bacteria MODERATEH, Urine Casts NONE, Urine Mucus NEGATIVE, Urine Culture Indicated YES 04/12/20 04:00: White Blood Count 12.5H, Red Blood Count 2.90L, Hemoglobin 9.1L, Hematocrit 28L, Mean Corpuscular Volume 98, Mean Corpuscular Hemoglobin 31, Mean Corpuscular Hemoglobin Concent 32, Red Cell Distribution Width 13.7, Platelet Count 209, Mean Platelet Volume 10.9H, Sodium Level 140, Potassium Level 4.0, Chloride Level 116H, Carbon Dioxide Level 15L, Anion Gap 9, Blood Urea Nitrogen 29H, Creatinine 1.61H, Estimat Glomerular Filtration Rate 31, BUN/Creatinine Ratio 18, Glucose Level 118H, Calcium Level 8.2L, Corrected Calcium 8.9, Magnesium Level 2.0, Total Bilirubin 0.4, Aspartate Amino Transf (AST/SGOT) 17, Alanine Aminotransferase (ALT/SGPT) 8, Alkaline Phosphatase 113, Total Protein 5.7L, Albumin 3.1L Microbiology 04/09/20 MRSA Screen - Final, Complete MRSA not isolated Assessment/Plan Assessment/Plan Assess & Plan/Chief Complaint 1. Colonic reanastomosis--NPO, no flatus yet, increase activity 2. Acute on Chronic Renal Failure--Cr improving 3. Hypertension--increase metoprolol dose and continue diltiazem 4. Paroxysmal Atrial Fibrillation-- back to NSR, on eliquis 5. Edema--improved after IV lasix yesterday 6. Hypokalemia/Hyponatremia--on replacement protocols 7. Hypothyroidism--levothyroxine restarted 8. Atelectesis--discussed importance of IS 9. UTI--started zosyn yesterday Clinical Quality Measures DVT/VTE Risk/Contraindication: Risk Factor Score Per Nursin RFS Level Per Nursing on Admit: 4+=Very High BILL FAN DO Apr 12, 2020 09:27
--- NOTE | 2020-04-12 10:58 | NUR ---
PT TRANSFERRED TO ROOM 423 VIA CHAIR W/ STAFF AND PERSONAL BELONGINGS. REPORT GIVEN TO MIKAL LOVE. NO QUESTIONS/CONCERNS VOICED.
--- NOTE | 2020-04-12 14:58 | Cardiology Progress Note ---
Cardiology SOAP Progress Note Subjective: No cardiac complaints. Objective: I&O/Vital Signs 04/12/20 04/12/20 04/12/20 04/12/20 03:00 04:00 04:00 05:00 Pulse 75 82 78 Resp 19 24 19 B/P (MAP) 139/102 (114) 145/59 (87) Pulse Ox 92 96 94 O2 Delivery Room Air Room Air Room Air Room Air 04/12/20 04/12/20 04/12/20 04/12/20 06:00 07:00 07:09 08:00 Pulse 73 73 75 71 Resp 19 20 17 B/P (MAP) 155/52 (86) 157/66 (96) 164/70 (101) Pulse Ox 98 97 98 O2 Delivery Room Air Room Air Room Air 04/12/20 04/12/20 04/12/20 04/12/20 08:17 08:21 08:27 09:00 Temp 36.9 Pulse 75 Resp 21 B/P (MAP) 167/66 (99) Pulse Ox 96 97 O2 Delivery Room Air Room Air Room Air 04/12/20 10:00 Pulse 71 Resp 20 B/P (MAP) 174/72 (106) Pulse Ox 96 O2 Delivery Room Air 04/12/20 00:00 Intake Total 1070 ml Output Total 1500 ml Balance -430 ml Weight (Pounds): 200 Weight (Ounces): 0.0 Weight (Calculated Kilograms): 90.560672 Constitutional: appears stated age, AAO x 3; No apparent distress; well- developed, well-nourished Respiratory: chest is bilaterally symmetric, lungs clear to auscultation Cardiovascular: regular rate-rhythm, S1 and S2 Gastrointestional: soft, audible bowel sounds; No spleenomegaly Extremities: normal range of motion, non-tender, normal inspection; No clubbing, No cyanosis; no lower extremity edema bilateral; No significant edema Neurologic/Psychiatric: no motor/sensory deficits, alert, normal mood/affect, oriented x 3, power is 5/5 both on sides Skin: normal color; No rash, No ulcerations Results/Procedures: Labs Laboratory Tests 04/12/20 04:00: White Blood Count 12.5H, Red Blood Count 2.90L, Hemoglobin 9.1L, Hematocrit 28L, Mean Corpuscular Volume 98, Mean Corpuscular Hemoglobin 31, Mean Corpuscular Hemoglobin Concent 32, Red Cell Distribution Width 13.7, Platelet Count 209, Mean Platelet Volume 10.9H, Sodium Level 140, Potassium Level 4.0, Chloride Level 116H, Carbon Dioxide Level 15L, Anion Gap 9, Blood Urea Nitrogen 29H, Creatinine 1.61H, Estimat Glomerular Filtration Rate 31, BUN/Creatinine Ratio 18, Glucose Level 118H, Calcium Level 8.2L, Corrected Calcium 8.9, Magnesium Level 2.0, Total Bilirubin 0.4, Aspartate Amino Transf (AST/SGOT) 17, Alanine Aminotransferase (ALT/SGPT) 8, Alkaline Phosphatase 113, Total Protein 5.7L, Albumin 3.1L Microbiology 04/11/20 Urine Culture - Final, Complete NO GROWTH 04/09/20 MRSA Screen - Final, Complete MRSA not isolated A/P: Assessment/Dx: Persistent atrial fibrillation, currently in sinus rhythm. Recent abdominal surgery, Hypertension, Hyperlipidemia, Type II diabetes, GERD, Chronic diastolic congestive heart failure, Chronic kidney disease stage IV Plan: Persistent atrial fibrillation, currently in sinus rhythm. IV amiodarone infusion completed yesterday. Continue Cardizem CD 120 mg daily. Eliquis was started after surgical clearance. Discussed about atrial fibrillation. Recent abdominal surgery, deferred to the surgical team. Hypertension, continue outpatient medical therapy as per Dr. Gómez and the medicine team. Hyperlipidemia, on statin therapy. Type II diabetes, GERD, Chronic diastolic congestive heart failure, no florid congestive heart failure on my examination. Echocardiogram does show moderate diastolic dysfunction. Chronic kidney disease stage IV, will require nephrology follow-up. Thank you for your consultation. Please call me if you have any questions. Giuliano Salgado MD, FACP, FACC, FSCAI, FHRS, CCDS Interventional Cardiology Cardiac Electrophysiology Vascular Medicine and Endovascular Interventions Jose SALGADO MD Apr 12, 2020 14:58
[2020-04-12] MEDS: lisINopril 10 MG (PRINIVIL) TABLET PO SCH (20:06)
[2020-04-12] MEDS: AMITRIPTYLINE 10 MG (ELAVIL) TAB PO SCH (20:07)
[2020-04-12] MEDS: HYDROcodone/APAP 5 MG/325 MG (LORTAB) TAB PO PRN (20:08)
[2020-04-13] VITALS (8 sets, daily range): BP systolic 139–188; BP diastolic 63–83
[2020-04-13] MEDS: PIPERACILLIN/TAZOBACTAM (BULK) 4.5 GM in NS (IVPB) 100 ML IV SCH ×3 (02:25→18:21)
[2020-04-13] MEDS: NS IV 1000 ML 1,000 ML IV SCH ×3 (02:26→18:21)
[2020-04-13] MEDS: HYDROcodone/APAP 5 MG/325 MG (LORTAB) TAB PO PRN ×2 (02:32→20:32)
[2020-04-13] MEDS: RT-ALBUTEROL/IPRATROPIUM 3 ML (DUONEB) VIAL INH SCH ×3 (02:46→21:38)
[2020-04-13 05:39] LABS: BASOPHILS % (AUTO) 0 % (0-10); EOSINOPHILS # (AUTO) 0.5 10^3/uL (0.0-0.3); EOSINOPHILS % (AUTO) 4 % (0-10); HEMATOCRIT 26 % (35-52); HEMOGLOBIN 8.3 G/DL (11.5-16.0); LYMPHOCYTES # (AUTO) 2.1 X 10^3 (1.0-4.0); LYMPHOCYTES % (AUTO) 20 % (12-44); MEAN CORPUSCULAR HEMOGLOBIN 31 PG (25-34); MEAN CORPUSCULAR HGB CONC 32 G/DL (32-36); MEAN CORPUSCULAR VOLUME 99 FL (80-99); MEAN PLATELET VOLUME 10.9 FL (7.4-10.4); MONOCYTES # (AUTO) 1.1 X 10^3 (0.0-1.0); MONOCYTES % (AUTO) 10 % (0-12); NEUTROPHILS # (AUTO) 6.6 X 10^3 (1.8-7.8); NEUTROPHILS % (AUTO) 65 % (42-75); PLATELET COUNT 213 10^3/uL (130-400); RED CELL DISTRIBUTION WIDTH 13.4 % (10.0-14.5); WHITE BLOOD COUNT 10.2 10^3/uL (4.3-11.0)
[2020-04-13 06:00] LABS: ALBUMIN 2.7 GM/DL (3.2-4.5); BILIRUBIN,TOTAL 0.3 MG/DL (0.1-1.0); CALCIUM 8.2 MG/DL (8.5-10.1); CREATININE SERUM 1.43 MG/DL (0.60-1.30); TOTAL PROTEIN 4.9 GM/DL (6.4-8.2)
[2020-04-13] MEDS: KCL 20 MEQ TAB (K-DUR) PO SCH (06:09)
[2020-04-13 06:25] LABS: FREE T4 (FREE THYROXINE) 0.88 NG/DL (0.70-1.48)
[2020-04-13] MEDS: lisINopril 10 MG (PRINIVIL) TABLET PO SCH (09:00)
[2020-04-13] MEDS: LEVOTHYROXINE 50 MCG (LEVOTHROID) TAB PO SCH (09:00)
[2020-04-13] MEDS: APIXABAN 5 MG (ELIQUIS) TABLET PO SCH ×2 (09:00→20:15)
[2020-04-13] MEDS: dilTIAZem120 MG (CARDIZEM CD) CAP PO SCH (09:00)
[2020-04-13] MEDS: GABAPENTIN 300 MG (NEURONTIN) CAP PO SCH ×3 (09:00→20:15)
--- NOTE | 2020-04-13 10:15 | NUR ---
IRF Evaluation Determination: Denied Explanation: This reviewer witnessed patient ambulating with PT in hallway, with little to no assistance. Discussed this observation with PT, she states patient ambulated (800ft, FWW) with modified independence; therefore, patient does not require intensive therapies. CM/SS and RN notified. Thank you for this referral.
--- NOTE | 2020-04-13 10:19 | Physical Therapy Daily Note ---
PT Daily Note-Current Subjective Patient is up in room and agrees to PT. Pain Numeric Pain Scale: 0-No Pain Location: No Pain Reported Mental Status Patient Orientation: Normal For Age Attachments: IV Transfers SCALE: Activities may be completed with or without assistive devices. 8-Hnrenwsjkm-zrywqlb completes the activity by him/herself with no assistance from a helper. 5-Set-up or Clean-up Assistance-helper sets up or cleans up; patient completes activity. [place] assists only prior to or following the activity. 4-Supervision or Touching Assistance-helper provides verbal cues and/or touching/steadying and/or contact guard assistance as patient completes activity. Assistance may be provided throughout the activity or intermittently. 3-Partial/Moderate Assistance-helper does LESS THAN HALF the effort. [place] lifts, holds or supports trunk or limbs, but provides less than half the effort. 2-Substantial/Maximal Assistance-helper does MORE THAN HALF the effort. [place] lifts or holds trunk or limbs and provides more than half the effort. 2-Wknisqfsk-tadlma does ALL the effort. Patient does none of the effort to complete the activity. Or, the assistance of 2 or more helpers is required for the patient to complete the activity. If activity was not attempted, code reason: 7-Patient Refused. 9-Not Applicable-not attempted and the patient did not perform the activity before the current illness, exacerbation or injury. 10-Not Attempted due to Environmental Limitations-(lack of equipment, weather restraints, etc.). 88-Not Attempted due to Medical Conditions or Safety Concerns. Lying to Sitting/Side of Bed(Q: 5 Sit to Stand (QC): 5 Chair/Rtz-mt-Rzfoy Xfer(QC): 5 Toilet Transfer (QC): 5 Weight Bearing Right Lower Extremity: Right Weight Bearing/Tolerated Left Lower Extremity: Left Weight Bearing/Tolerated Gait Training Does the Patient Walk?: Yes Distance: 800' Walk 10 feet (QC): 5 Walk 50 ft with 2 Turns(QC): 5 Walk 150 ft (QC): 5 Gait Assistive Device: FWW safe and functional with no deviation Assessment Patient incontinent BM during treatment session. Nursing in to assist with shower. PT Short Term Goals Short Term Goals Time Frame: Apr 14, 2020 Roll Left & Right: 6 Sit to lyin Lying to sitting on side of be: 6 PT Wound Care Physician Goals Residential Goals PT Residential Goals Time Frame: Apr 17, 2020 Roll Left & Right (QC): 6 Sit to Lying (QC): 6 Lying-Sitting on Side/Bed(QC): 6 Sit to Stand (QC): 6 Chair/Lcu-ej-Xyrlr Xfer(QC): 6 Toilet Transfer (QC): 6 Car Transfer (QC): 6 Does the Patient Walk: Yes Walk 10 feet (QC): 6 Walk 50ft with 2 Turns (QC): 6 Walk 150 ft (QC): 6 Walking 10ft on Uneven Surface: 5 1 Step (curb) (QC): 6 4 Steps (QC): 6 12 Steps (QC): 6 Picking up an Object (QC): 6 Does the Pt use WC or Scooter?: No Type: N/A Type: N/A PT Plan Treatment/Plan Treatment Plan: Continue Plan of Care Treatment Plan: Bed Mobility, Education, Functional Activity [place], Functional Strength, Gait, Safety, Therapeutic Exercise, Transfers Treatment Duration: Apr 17, 2020 Frequency: 6 times per week Estimated Hrs Per Day: .25 hour per day Patient and/or Family Agrees t: Yes Time/GCodes Time In: 946 Time Out: 957 Total Billed Treatment Time: 11 Total Billed Treatment 1 visit FA 11 min RYLAND APONTE PT Apr 13, 2020 10:19
--- NOTE | 2020-04-13 13:18 | Progress Note ---
Subjective Subjective Date Seen by Provider: Apr 13, 2020 Time Seen by Provider: 06:30 No overnight events. No complaints. Patient is tolerated clears. Review of Systems General: No Chills, No Night Sweats HEENT: No Head Aches Pulmonary: No Dyspnea, No Cough Cardiovascular: No: Chest Pain, Palpitations Gastrointestinal: No: Nausea, Vomiting Genitourinary: No Dysuria Objective Exam Vital Signs Vital Signs 04/13/20 15:58 94 Room Air 04/13/20 15:33 36.2 65 18 185/75 (111) 98 Room Air 04/13/20 13:43 36.1 67 93 21 04/13/20 12:00 36.1 68 18 188/74 (112) 98 Room Air 04/13/20 09:38 95 Room Air 04/13/20 08:00 36.5 76 18 172/70 (104) 95 Room Air 04/13/20 08:00 Room Air I & O General Appearance: No Apparent Distress, Obese HEENT: PERRL/EOMI Neck: Supple Respiratory: No Respiratory Distress, Accessory Muscle Use, Decreased Breath Sounds (bibasilar atelectasis noted on CXR) Cardiovascular: Regular Rate, Rhythm Gastrointestinal: Non Tender, Soft Extremity: Non Tender, No Calf Tenderness, Pedal Edema (mild ankles) Neurologic/Psychiatric: Alert, Oriented x3 Skin: Warm/Dry Results Lab Laboratory Tests 04/13/20 05:30: White Blood Count 10.2, Red Blood Count 2.67L, Hemoglobin 8.3L, Hematocrit 26L, Mean Corpuscular Volume 99, Mean Corpuscular Hemoglobin 31, Mean Corpuscular Hemoglobin Concent 32, Red Cell Distribution Width 13.4, Platelet Count 213, Mean Platelet Volume 10.9H, Neutrophils (%) (Auto) 65, Lymphocytes (%) (Auto) 20, Monocytes (%) (Auto) 10, Eosinophils (%) (Auto) 4, Basophils (%) (Auto) 0, Neutrophils # (Auto) 6.6, Lymphocytes # (Auto) 2.1, Monocytes # (Auto) 1.1H, Eosinophils # (Auto) 0.5H, Basophils # (Auto) 0.0, Sodium Level 141, Potassium Level 4.0, Chloride Level 119H, Carbon Dioxide Level 16L, Anion Gap 6, Blood Urea Nitrogen 24H, Creatinine 1.43H, Estimat Glomerular Filtration Rate 35, BUN/Creatinine Ratio 17, Glucose Level 116H, Calcium Level 8.2L, Corrected Calcium 9.2, Total Bilirubin 0.3, Aspartate Amino Transf (AST/SGOT) 24, Alanine Aminotransferase (ALT/SGPT) 14, Alkaline Phosphatase 95, Total Protein 4.9L, Albumin 2.7L, Thyroid Stimulating Hormone (TSH) 3.16, Free Thyroxine 0.88 Microbiology 04/11/20 Urine Culture - Final, Complete NO GROWTH 04/09/20 MRSA Screen - Final, Complete MRSA not isolated Assessment/Plan Assessment/Plan Assessment and Plan 04/10/20- s/p day 1 ostomy take down and bowel reanastomosis -IVF for acute on chronic renal failure- will need to back off fluids tomorrow if Cr improves. Monitor urine output. -holding lisinopril- may restart if Cr improves and blood pressure is elevated. Otherwise will hold. 04/11,- went into afib with rvr- converted with diltiazem drip and amiodarone. Now on eliquis and diltiazem. 04/13/20- blood pressure remaining elevated. Increased lisinopril to 20mg BID- Kidney function is improving. Will be assessed for IRF. Dispo: Patient is in good spirits; continue to monitor progress and mood. Problems: (1) HTN (hypertension) (2) GERD without esophagitis (3) Type 2 diabetes mellitus without complications (4) HISTORY COLON PERFORATION Assessment & Plan: s/p ostomy 12/09/19- ostomy take down and reanastomosis (5) Acute on chronic kidney failure (6) CKD (chronic kidney disease), stage IV Assessment & Plan: avoid NSAIDs, nephrotoxic agents. (7) Chronic diastolic (congestive) heart failure Assessment & Plan: lasix 20mg po prn edema. (8) Hypothyroid Qualifiers: Qualified Codes: E03.9 - Hypothyroidism, unspecified Assessment & Plan: continue levothyroxine. Clinical Quality Measures DVT/VTE Risk/Contraindication: Risk Factor Score Per Nursin RFS Level Per Nursing on Admit: 4+=Very High MADYSON HERMAN MD Apr 13, 2020 13:18
--- NOTE | 2020-04-13 13:56 | NUR ---
Pt is Gnosticism. Senior Architectural Designer will provide Communion tomorrow.
--- NOTE | 2020-04-13 14:50 | NUR ---
RD ASSESSMENT PMHx: HTN; chronic UTI; GERD; hypothyroidism; CA(uterine); DM; s/p ostomy reversal PT INTERACTION: Pt was awake and very pleasant during nutrition assessment. Pt states current appetite is good. Note avg PO intake 50-75% x1d, per chart review. Pt states following a regular diet at home, and has no issues with chewing/swallowing food. Pt states recent issues with nausea and diarrhea, and that her last BM was 04/13. Note pt not currently on bowel regimen per chart review. Pt states no recent wt changes. Note recent 8# wt loss x7mon, per chart review. When asked about current DM management, pt stated "I do not have diabetes." Note unable to determine recent HbA1c, per chart review. ABNORMAL NUTRITION-RELATED LAB VALUES LOW: Ca 8.2; Pro 4.9; alb 2.7 HIGH: Cl 119; BUN 24; cr 1.43; glu 116 Est. kcal needs: 1425 kcal | 15 kcal/kg Est. Pro needs: 76 g Pro | 0.8 g Pro/kg PES STATEMENT: Inadequate oral intake (NI-2.1) related to nausea | diarrhea as evidenced by pt interview | avg PO intake 50-75% x1d INTERVENTION: Note pt currently on diet order of Clear Liquid diet. Would recommend advance diet to Regular diet, as medically able and as tolerated. Pt may benefit from consistent CHO restriction if blood glucose levels become elevated. Did not offer diet education at this time, as pt stated she is not a diabetic. Will continue to follow and reassess as pt needs, intake, and status change. MONITOR/EVALUATE: PO Intake; Plan of Care; Hydration Status; Weight Status; Lab Values Phyllis Johnson, MS, RD, LD
--- NOTE | 2020-04-13 15:40 | NUR ---
THIS RN CALLED DR HERMAN REGARDING PT BLOOD PRESSURE. NEW ORDERS RECEIVED.
[2020-04-13] MEDS ORDERED: lisINopril 10 MG (PRINIVIL) TABLET PO NR (15:45)
--- NOTE | 2020-04-13 16:16 | Cardiology Progress Note ---
Cardiology SOAP Progress Note Subjective: No cardiac complaints. Objective: I&O/Vital Signs 04/13/20 04/13/20 04/13/20 04/13/20 08:00 08:00 09:38 12:00 Temp 36.5 36.1 Pulse 76 68 Resp 18 18 B/P (MAP) 172/70 (104) 188/74 (112) Pulse Ox 95 95 98 O2 Delivery Room Air Room Air Room Air Room Air 04/13/20 04/13/20 04/13/20 13:43 15:33 15:58 Temp 36.1 36.2 Pulse 67 65 Resp 18 B/P (MAP) 185/75 (111) Pulse Ox 93 98 94 O2 Delivery Room Air Room Air FiO2 21 04/13/20 00:00 Intake Total 720 ml Balance 720 ml Weight (Pounds): 200 Weight (Ounces): 0.0 Weight (Calculated Kilograms): 90.498136 Constitutional: appears stated age, AAO x 3; No apparent distress; well- developed, well-nourished Respiratory: chest is bilaterally symmetric, lungs clear to auscultation Cardiovascular: regular rate-rhythm, S1 and S2 Gastrointestional: soft, audible bowel sounds; No spleenomegaly Extremities: normal range of motion, non-tender, normal inspection; No clubbing, No cyanosis; no lower extremity edema bilateral; No significant edema Neurologic/Psychiatric: no motor/sensory deficits, alert, normal mood/affect, oriented x 3, power is 5/5 both on sides Skin: normal color; No rash, No ulcerations Results/Procedures: Labs Laboratory Tests 04/13/20 05:30: White Blood Count 10.2, Red Blood Count 2.67L, Hemoglobin 8.3L, Hematocrit 26L, Mean Corpuscular Volume 99, Mean Corpuscular Hemoglobin 31, Mean Corpuscular Hemoglobin Concent 32, Red Cell Distribution Width 13.4, Platelet Count 213, Mean Platelet Volume 10.9H, Neutrophils (%) (Auto) 65, Lymphocytes (%) (Auto) 20, Monocytes (%) (Auto) 10, Eosinophils (%) (Auto) 4, Basophils (%) (Auto) 0, Neutrophils # (Auto) 6.6, Lymphocytes # (Auto) 2.1, Monocytes # (Auto) 1.1H, Eosinophils # (Auto) 0.5H, Basophils # (Auto) 0.0, Sodium Level 141, Potassium Level 4.0, Chloride Level 119H, Carbon Dioxide Level 16L, Anion Gap 6, Blood Urea Nitrogen 24H, Creatinine 1.43H, Estimat Glomerular Filtration Rate 35, BUN/Creatinine Ratio 17, Glucose Level 116H, Calcium Level 8.2L, Corrected Calcium 9.2, Total Bilirubin 0.3, Aspartate Amino Transf (AST/SGOT) 24, Alanine Aminotransferase (ALT/SGPT) 14, Alkaline Phosphatase 95, Total Protein 4.9L, Albumin 2.7L, Thyroid Stimulating Hormone (TSH) 3.16, Free Thyroxine 0.88 Microbiology 04/11/20 Urine Culture - Final, Complete NO GROWTH 04/09/20 MRSA Screen - Final, Complete MRSA not isolated A/P: Assessment/Dx: Persistent atrial fibrillation, currently in sinus rhythm. Recent abdominal surgery, Hypertension, Hyperlipidemia, Type II diabetes, GERD, Chronic diastolic congestive heart failure, Chronic kidney disease stage IV Plan: Persistent atrial fibrillation, currently in sinus rhythm. IV amiodarone infusion completed. Continue Cardizem CD 120 mg daily. Eliquis was started after surgical clearance. Discussed about atrial fibrillation. Recent abdominal surgery, deferred to the surgical team. Hypertension, continue outpatient medical therapy as per Dr. Gómez and the medicine team. Hyperlipidemia, on statin therapy. Type II diabetes, GERD, Chronic diastolic congestive heart failure, no florid congestive heart failure on my examination. Echocardiogram does show moderate diastolic dysfunction. Chronic kidney disease stage IV, will require nephrology follow-up. Thank you for your consultation. Please call me if you have any questions. Giuliano Salgado MD, FACP, FACC, FSCAI, FHRS, CCDS Interventional Cardiology Cardiac Electrophysiology Vascular Medicine and Endovascular Interventions Jose SALGADO MD Apr 13, 2020 16:16
[2020-04-13] MEDS: AMITRIPTYLINE 10 MG (ELAVIL) TAB PO SCH (20:15)
--- NOTE | 2020-04-13 20:22 | Progress Note - Surgery ---
Subjective Date Seen by a Provider: Apr 13, 2020 Time Seen by a Provider: 08:30 Subjective/Events-last exam Pain controlled. No bm or flatus. Tolerating clears. Using IS some. Ambulating minimally. Denies n/v fever sweats chills shortness of breath or chest pain. Objective Exam Vital Signs Date Time Temp Pulse Resp B/P (MAP) Pulse Ox O2 Delivery O2 Flow Rate FiO2 04/13/20 20:00 36.1 69 17 154/79 (104) 95 Room Air 04/13/20 15:58 94 Room Air 04/13/20 15:33 36.2 65 18 185/75 (111) 98 Room Air 04/13/20 13:43 36.1 67 93 21 04/13/20 12:00 36.1 68 18 188/74 (112) 98 Room Air 04/13/20 09:38 95 Room Air 04/13/20 08:00 36.5 76 18 172/70 (104) 95 Room Air 04/13/20 08:00 Room Air 04/13/20 04:00 36.5 81 20 142/83 (102) 92 Room Air 04/13/20 02:46 98 Room Air 04/13/20 00:00 36.0 74 20 139/63 (88) 95 Room Air 04/12/20 21:03 93 Room Air I & O 04/13/20 06:59 Intake Total 1940 ml Balance 1940 ml Capillary Refill : Less Than 3 Seconds General Appearance: No Apparent Distress, Obese HEENT: PERRL/EOMI Neck: Supple Respiratory: Chest Non Tender, No Accessory Muscle Use, No Respiratory Distress, Accessory Muscle Use Cardiovascular: Regular Rate, Rhythm Gastrointestinal: soft, other ( inc c/d/i no erythema) Extremity: Non Tender, No Calf Tenderness, Pedal Edema (mild ankles) Neurologic/Psychiatric: Alert, Oriented x3 Skin: Warm/Dry Results Lab Laboratory Tests 04/13/20 05:30: White Blood Count 10.2, Red Blood Count 2.67L, Hemoglobin 8.3L, Hematocrit 26L, Mean Corpuscular Volume 99, Mean Corpuscular Hemoglobin 31, Mean Corpuscular Hemoglobin Concent 32, Red Cell Distribution Width 13.4, Platelet Count 213, Mean Platelet Volume 10.9H, Neutrophils (%) (Auto) 65, Lymphocytes (%) (Auto) 20, Monocytes (%) (Auto) 10, Eosinophils (%) (Auto) 4, Basophils (%) (Auto) 0, Neutrophils # (Auto) 6.6, Lymphocytes # (Auto) 2.1, Monocytes # (Auto) 1.1H, Eosinophils # (Auto) 0.5H, Basophils # (Auto) 0.0, Sodium Level 141, Potassium Level 4.0, Chloride Level 119H, Carbon Dioxide Level 16L, Anion Gap 6, Blood Urea Nitrogen 24H, Creatinine 1.43H, Estimat Glomerular Filtration Rate 35, BUN/Creatinine Ratio 17, Glucose Level 116H, Calcium Level 8.2L, Corrected Calcium 9.2, Total Bilirubin 0.3, Aspartate Amino Transf (AST/SGOT) 24, Alanine Aminotransferase (ALT/SGPT) 14, Alkaline Phosphatase 95, Total Protein 4.9L, Albumin 2.7L, Thyroid Stimulating Hormone (TSH) 3.16, Free Thyroxine 0.88 Microbiology 04/11/20 Urine Culture - Final, Complete NO GROWTH 04/09/20 MRSA Screen - Final, Complete MRSA not isolated Assessment/Plan Assessment/Plan Assessment/Plan S/P colostomy reversal afib rvr converted to sinus on eliquis so don't need any further dvt prophylaxis Pt encouraged to ambulate and work with PT clears. IS will have IRF eval await bowel function and advance diet Clinical Quality Measures DVT/VTE Risk/Contraindication: Risk Factor Score Per Nursin RFS Level Per Nursing on Admit: 4+=Very High NAJMA MALCOLM DO Apr 13, 2020 20:21
[2020-04-13] MEDS: lisINopril 20 MG (PRINIVIL) TABLET PO SCH (20:31)
[2020-04-14] VITALS (9 sets, daily range): BP systolic 5–199; BP diastolic 68–84
[2020-04-14] MEDS: PIPERACILLIN/TAZOBACTAM (BULK) 4.5 GM in NS (IVPB) 100 ML IV SCH ×3 (02:31→17:33)
[2020-04-14] MEDS: KCL 20 MEQ TAB (K-DUR) PO SCH (06:00)
--- NOTE | 2020-04-14 07:37 | Progress Note - Surgery ---
MORENITA PHILIP MED STUDENT 04/14/20 0737: Subjective Date Seen by a Provider: Apr 14, 2020 Time Seen by a Provider: 06:55 Subjective/Events-last exam Pt appeared comfortable and alert sitting up in bed. Reports she is a little sore from incision sites but pain is well managed. She has been experiencing flatulence and had multiple BM yesterday. Has been ambulating some and using her IS as well. No other complaints at this time. Denies n/v, fever, chills, chest pain, sob. Objective Exam Vital Signs Date Time Temp Pulse Resp B/P (MAP) Pulse Ox O2 Delivery O2 Flow Rate FiO2 04/14/20 05:58 71 174/77 (109) 04/14/20 04:43 36.3 68 18 180/68 (105) 96 Room Air 04/14/20 01:23 36.2 70 93 21 04/14/20 00:35 66 177/76 (109) 04/13/20 23:55 36.2 70 18 184/75 (111) 96 Room Air 04/13/20 21:38 96 Room Air 04/13/20 20:15 Room Air 04/13/20 20:00 36.1 69 17 154/79 (104) 95 Room Air 04/13/20 15:58 94 Room Air 04/13/20 15:33 36.2 65 18 185/75 (111) 98 Room Air 04/13/20 13:43 36.1 67 93 21 04/13/20 12:00 36.1 68 18 188/74 (112) 98 Room Air 04/13/20 09:38 95 Room Air 04/13/20 08:00 36.5 76 18 172/70 (104) 95 Room Air 04/13/20 08:00 Room Air I & O 04/14/20 07:00 Intake Total 3830 ml Balance 3830 ml Capillary Refill : Less Than 3 Seconds General Appearance: No Apparent Distress, Obese HEENT: PERRL/EOMI Neck: Supple Respiratory: No Respiratory Distress, Accessory Muscle Use, Decreased Breath Sounds (bibasilar atelectasis noted on CXR) Cardiovascular: Regular Rate, Rhythm, Normal Peripheral Pulses Gastrointestinal: soft, tenderness (incision site tenderness), other ( inc c/d/i no erythema) Extremity: Non Tender, No Calf Tenderness, Pedal Edema (mild ankles) Neurologic/Psychiatric: Alert, Oriented x3, No Motor/Sensory Deficits, Normal Mood/Affect Skin: Normal Color, Warm/Dry Results Lab Microbiology 04/11/20 Urine Culture - Final, Complete NO GROWTH 04/09/20 MRSA Screen - Final, Complete MRSA not isolated Assessment/Plan Assessment/Plan Assessment/Plan colostomy reversal continue ambulating and IS usage increase diet as tolerated Clinical Quality Measures DVT/VTE Risk/Contraindication: Risk Factor Score Per Nursin RFS Level Per Nursing on Admit: 4+=Very High NAJMA SANTOS DO 04/14/202128: Subjective Subjective/Events-last exam Pain controlled. +bowel function. Tolerating clears without n/v fever sweats chills shortness of breath or chest pain. Using IS some. Objective Exam General Appearance: No Apparent Distress, Obese HEENT: PERRL/EOMI Neck: Normal Inspection, Supple Respiratory: Chest Non Tender, No Accessory Muscle Use, No Respiratory Distress Cardiovascular: Regular Rate, Rhythm, Normal Peripheral Pulses Gastrointestinal: soft, tenderness (incision site tenderness, c/d/i no signs of infection) Extremity: Non Tender, No Calf Tenderness Neurologic/Psychiatric: Alert, Oriented x3, No Motor/Sensory Deficits, Normal Mood/Affect Skin: Normal Color, Warm/Dry Lymphatic: No Adenopathy Assessment/Plan Assessment/Plan Assessment/Plan s/p lap hand assisted colostomy take down and anastamosis afib rvr now regular advance diet did not meet criteria for IRF Pain control On Eliquis and Cardizem Home soon Supervisory-Addendum Brief Verification & Attestation Participated in pt care: history, MDM, physical Personally performed: exam, history, MDM, supervision of care Care discussed with: Medical Student Procedures: n/a Results interpretation: Verified all documentation Verification and Attestation of Medical Student E/M Service A medical student performed and documented this service in my presence. I reviewed and verified all information documented by the medical student and made modifications to such information, when appropriate. I personally performed the physical exam and medical decision making. Najma Santos, Apr 14, 2020,21:29 MORENITA PHILIP MED STUDENT Apr 14, 2020 07:37 NAJMA SANTOS DO Apr 14, 2020 21:29
[2020-04-14] MEDS: RT-ALBUTEROL/IPRATROPIUM 3 ML (DUONEB) VIAL INH SCH ×2 (07:51→20:41)
[2020-04-14] MEDS: APIXABAN 5 MG (ELIQUIS) TABLET PO SCH ×2 (08:33→19:49)
[2020-04-14] MEDS: GABAPENTIN 300 MG (NEURONTIN) CAP PO SCH ×3 (08:33→19:49)
[2020-04-14] MEDS: lisINopril 20 MG (PRINIVIL) TABLET PO SCH ×2 (08:33→19:50)
[2020-04-14] MEDS: LEVOTHYROXINE 50 MCG (LEVOTHROID) TAB PO SCH (08:33)
[2020-04-14] MEDS: dilTIAZem120 MG (CARDIZEM CD) CAP PO SCH (09:13)
[2020-04-14] MEDS: NS IV 1000 ML 1,000 ML IV SCH (09:46)
--- NOTE | 2020-04-14 09:59 | Physical Therapy Daily Note ---
PT Daily Note-Current Subjective Patient agrees to PT. No c/o. Mental Status Patient Orientation: Normal For Age Attachments: IV Transfers SCALE: Activities may be completed with or without assistive devices. 0-Outczldrhj-hdcyznn completes the activity by him/herself with no assistance from a helper. 5-Set-up or Clean-up Assistance-helper sets up or cleans up; patient completes activity. Webster assists only prior to or following the activity. 4-Supervision or Touching Assistance-helper provides verbal cues and/or touching/steadying and/or contact guard assistance as patient completes activity. Assistance may be provided throughout the activity or intermittently. 3-Partial/Moderate Assistance-helper does LESS THAN HALF the effort. Webster lifts, holds or supports trunk or limbs, but provides less than half the effort. 2-Substantial/Maximal Assistance-helper does MORE THAN HALF the effort. Webster lifts or holds trunk or limbs and provides more than half the effort. 5-Hxlxbprcm-qnggkc does ALL the effort. Patient does none of the effort to complete the activity. Or, the assistance of 2 or more helpers is required for the patient to complete the activity. If activity was not attempted, code reason: 7-Patient Refused. 9-Not Applicable-not attempted and the patient did not perform the activity before the current illness, exacerbation or injury. 10-Not Attempted due to Environmental Limitations-(lack of equipment, weather restraints, etc.). 88-Not Attempted due to Medical Conditions or Safety Concerns. Sit to Stand (QC): 5 Toilet Transfer (QC): 5 incontinent BM during session Weight Bearing Right Lower Extremity: Right Weight Bearing/Tolerated Left Lower Extremity: Left Weight Bearing/Tolerated Gait Training Does the Patient Walk?: Yes Distance: 625' Walk 10 feet (QC): 5 Walk 50 ft with 2 Turns(QC): 5 Walk 150 ft (QC): 5 Gait Assistive Device: FWW trunk flexed posture with FWW use (incontinent BM during ambulation requiring transfer to shower for nursing to shower) Assessment Current Status: Good Progress PT Short Term Goals Short Term Goals Time Frame: Apr 14, 2020 Roll Left & Right: 6 Sit to lyin Lying to sitting on side of be: 6 PT Customs Compliance Analyst Goals Nursing Home Goals PT Nursing Home Goals Time Frame: Apr 17, 2020 Roll Left & Right (QC): 6 Sit to Lying (QC): 6 Lying-Sitting on Side/Bed(QC): 6 Sit to Stand (QC): 6 Chair/Pxs-xo-Vvzrg Xfer(QC): 6 Toilet Transfer (QC): 6 Car Transfer (QC): 6 Does the Patient Walk: Yes Walk 10 feet (QC): 6 Walk 50ft with 2 Turns (QC): 6 Walk 150 ft (QC): 6 Walking 10ft on Uneven Surface: 5 1 Step (curb) (QC): 6 4 Steps (QC): 6 12 Steps (QC): 6 Picking up an Object (QC): 6 Does the Pt use WC or Scooter?: No Type: N/A Type: N/A PT Plan Treatment/Plan Treatment Plan: Continue Plan of Care Treatment Plan: Bed Mobility, Education, Functional Activity Chuyita, Functional Strength, Gait, Safety, Therapeutic Exercise, Transfers Treatment Duration: Apr 17, 2020 Frequency: 6 times per week Estimated Hrs Per Day: .25 hour per day Patient and/or Family Agrees t: Yes Time/GCodes Time In: 905 Time Out: 916 Total Billed Treatment Time: 11 Total Billed Treatment 1 visit FA 11 min RYLAND APONTE PT Apr 14, 2020 09:59
--- NOTE | 2020-04-14 11:21 | NUR ---
CM/SS visited with patient for discharge planning. Home: The patient reports that she lives at home with her daughter, son-in-law, and 2 grandchildren. She states that her family is a great support. The patient has her own living quarters and verbalized that they help with transportation where ever she needs to go. Financial: Patient has insurance and states that all of her financial needs are being met. Home Health: Patient has had home health in the past for her colostomy; however, she is currently not on service with them. No paid caregivers. Physical therapy: Patient was denied for Inpatient rehab. She reports that she does have outpatient physical therapy with [facility] and would want to continue and follow with them. The patient denies any needs at this time. CM/SS will continue to follow and assist with any needs.
--- NOTE | 2020-04-14 14:53 | NUR ---
Pt sleeping while board indicates still NPO. Practice Clinician did not awaken her or offer communion.
[2020-04-14] MEDS: AMITRIPTYLINE 10 MG (ELAVIL) TAB PO SCH (19:49)
[2020-04-14] MEDS: HYDROcodone/APAP 5 MG/325 MG (LORTAB) TAB PO PRN (19:50)
--- NOTE | 2020-04-14 19:59 | Cardiology Progress Note ---
Cardiology SOAP Progress Note Subjective: No cardiac complaints. Objective: I&O/Vital Signs 04/14/20 04/14/20 04/14/20 04/14/20 08:00 08:26 08:30 12:00 Temp 36.4 36.0 Pulse 77 84 71 Resp 18 18 B/P (MAP) 175/81 (112) 174/83 (113) Pulse Ox 95 98 O2 Delivery Room Air Room Air Room Air 04/14/20 04/14/20 12:36 15:47 Temp 36.6 Pulse 66 68 Resp 20 B/P (MAP) 152/69 (96) Pulse Ox 99 O2 Delivery Room Air 04/14/20 00:00 Intake Total 2660 ml Balance 2660 ml Weight (Pounds): 200 Weight (Ounces): 0.0 Weight (Calculated Kilograms): [id number] Constitutional: appears stated age, AAO x 3; No apparent distress; well- developed, well-nourished Respiratory: chest is bilaterally symmetric, lungs clear to auscultation Cardiovascular: regular rate-rhythm, S1 and S2 Gastrointestional: soft, audible bowel sounds; No spleenomegaly Extremities: normal range of motion, non-tender, normal inspection; No clubbing, No cyanosis; no lower extremity edema bilateral; No significant edema Neurologic/Psychiatric: no motor/sensory deficits, alert, normal mood/affect, oriented x 3, power is 5/5 both on sides Skin: normal color; No rash, No ulcerations Results/Procedures: Labs Microbiology 04/11/20 Urine Culture - Final, Complete NO GROWTH 04/09/20 MRSA Screen - Final, Complete MRSA not isolated A/P: Assessment/Dx: Persistent atrial fibrillation, currently in sinus rhythm. Recent abdominal surgery, Hypertension, Hyperlipidemia, Type II diabetes, GERD, Chronic diastolic congestive heart failure, Chronic kidney disease stage IV Plan: Persistent atrial fibrillation, currently in sinus rhythm. IV amiodarone infusion completed. Continue Cardizem CD 120 mg daily. Eliquis was started after surgical clearance. Discussed about atrial fibrillation. Recent abdominal surgery, deferred to the surgical team. Hypertension, continue outpatient medical therapy as per Dr. Gómez and the medicine team. Hyperlipidemia, on statin therapy. Type II diabetes, GERD, Chronic diastolic congestive heart failure, no florid congestive heart failure on my examination. Echocardiogram does show moderate diastolic dysfunction. Chronic kidney disease stage IV, will require nephrology follow-up. On discharge, will be happy to see as an outpatient in two to three weeks. Event monitor on discharge. Thank you for your consultation. Please call me if you have any questions. Giuliano Salgado MD, FACP, FACC, FSCAI, FHRS, CCDS Interventional Cardiology Cardiac Electrophysiology Vascular Medicine and Endovascular Interventions Jose SALGADO MD Apr 14, 2020 19:58
--- NOTE | 2020-04-14 21:05 | NUR ---
Dr. Salgado notified of BP at 1999 of 199/82 with hr at 69 and BP at 2099 of 191/84 with hr at 74 (after receiving HS Lisinpril 20mg). New order rec for Amlodipine 10mg Daily (start tonight). Notify Dr. Salgado for SBP greater than 180.
[2020-04-14] MEDS ORDERED: amLODIPine 5 MG (NORVASC) TAB PO SCH ×2 (21:15)
[2020-04-16 07:43] VITALS: BP 144/67
== END 2020-04-15 14:14 | disposition home or self-care (01) | DRG 330 ==
LOC: 4TH 05:59 → SURG 06:00 → 4TH 13:38 → ICU 15:11 → 4TH 04-12 10:58
PROVIDERS: ADMIT Surgery; ATTEND Surgery
PROC: 0DSE0ZZ Reposition Large Intestine, Open Approach (ICD-10-PCS; principal; 2020-04-09 07:54)
DX: Z43.3 Encounter for attention to colostomy (principal); N17.9 Acute kidney failure, unspecified; I13.0 Hypertensive heart and chronic kidney disease with heart failure and stage 1 through stage 4 chronic kidney disease, or unspecified chronic kidney disease; N18.4 Chronic kidney disease, stage 4 (severe); I50.32 Chronic diastolic (congestive) heart failure; I42.9 Cardiomyopathy, unspecified; E87.1 Hypo-osmolality and hyponatremia; N39.0 Urinary tract infection, site not specified; J98.11 Atelectasis; E11.40 Type 2 diabetes mellitus with diabetic neuropathy, unspecified; I48.0 Paroxysmal atrial fibrillation; E03.9 Hypothyroidism, unspecified; E11.22 Type 2 diabetes mellitus with diabetic chronic kidney disease; K21.9 Gastro-esophageal reflux disease without esophagitis; E87.6 Hypokalemia; M54.9 Dorsalgia, unspecified; K57.90 Diverticulosis of intestine, part unspecified, without perforation or abscess without bleeding; R09.02 Hypoxemia; Z87.891 Personal history of nicotine dependence; Z85.42 Personal history of malignant neoplasm of other parts of uterus; Z88.2 Allergy status to sulfonamides
CPT/HCPCS: 36415; 71045; 76937; 80048; 80053; 80069; 81000; 82962; 83735; 84439; 84443; 85025; 85027; 86850; 86900; 86901; 87081; 87088; 88304; 93005; 93306; 94640; 94660; 94664; 94760

== ENCOUNTER 2020-07-29 12:53 | Outpatient (RCR) | payer MEDICARE, OTHER ==
[~2020-07-29 12:53] MED LIST changes: +ASPI-1238 PO; -ASPI-983 PO; -PANT40TA3 PO; +PANT40TA52 PO
== END 2020-07-29 13:43 | disposition home or self-care (01) ==
PROVIDERS: ATTEND Family Medicine
DX: Z01.818 Encounter for other preprocedural examination (principal); I89.0 Lymphedema, not elsewhere classified

== ENCOUNTER → 2020-09-25 | Outpatient (CLI) | payer MEDICARE, OTHER | LOC: WOUNDCARE 10:17 | PROVIDERS: ATTEND Surgery | DX: I89.0 Lymphedema, not elsewhere classified (principal); I96 Gangrene, not elsewhere classified; I50.9 Heart failure, unspecified; I70.232 Atherosclerosis of native arteries of right leg with ulceration of calf; L97.211 Non-pressure chronic ulcer of right calf limited to breakdown of skin; E66.01 Morbid (severe) obesity due to excess calories; Z68.41 Body mass index [BMI] 40.0-44.9, adult | CPT/HCPCS: 99214 ==

== ENCOUNTER → 2020-10-01 | Outpatient (CLI) | payer MEDICARE, OTHER | LOC: WOUNDCARE 13:06 | PROVIDERS: ATTEND Surgery | DX: I89.0 Lymphedema, not elsewhere classified (principal); I96 Gangrene, not elsewhere classified; I50.9 Heart failure, unspecified; L97.211 Non-pressure chronic ulcer of right calf limited to breakdown of skin; E66.01 Morbid (severe) obesity due to excess calories; Z68.41 Body mass index [BMI] 40.0-44.9, adult | CPT/HCPCS: 99212 ==

== ENCOUNTER → 2020-10-08 | Outpatient (CLI) | payer MEDICARE, OTHER ==
[~2020-10-08] MED LIST changes: -LISI10TA2 PO; +LISI10TA25 PO
== END ==
LOC: WOUNDCARE 14:05
PROVIDERS: ATTEND Surgery
DX: I89.0 Lymphedema, not elsewhere classified (principal); L97.211 Non-pressure chronic ulcer of right calf limited to breakdown of skin; E66.01 Morbid (severe) obesity due to excess calories; I50.9 Heart failure, unspecified; I96 Gangrene, not elsewhere classified
CPT/HCPCS: 99212

== ENCOUNTER → 2020-10-27 | Outpatient (CLI) | payer MEDICARE, OTHER ==
[~2020-10-27] MED LIST changes: -AMIT10TA6 PO; +AMT10T PO; -POLY17PO31 PO; +POLY17PO54 PO
== END ==
LOC: WOUNDCARE 09:04
PROVIDERS: ATTEND Surgery
DX: I89.0 Lymphedema, not elsewhere classified (principal); I96 Gangrene, not elsewhere classified; L97.221 Non-pressure chronic ulcer of left calf limited to breakdown of skin; E66.01 Morbid (severe) obesity due to excess calories; R54 Age-related physical debility; Z68.41 Body mass index [BMI] 40.0-44.9, adult
CPT/HCPCS: 99212

== ENCOUNTER → 2020-11-03 | Outpatient (CLI) | payer MEDICARE, OTHER | LOC: WOUNDCARE 14:16 | PROVIDERS: ATTEND Surgery | DX: I89.0 Lymphedema, not elsewhere classified (principal); L97.221 Non-pressure chronic ulcer of left calf limited to breakdown of skin; E66.01 Morbid (severe) obesity due to excess calories; I96 Gangrene, not elsewhere classified; R54 Age-related physical debility | CPT/HCPCS: 99212 ==

== ENCOUNTER 2020-11-09 12:49 | Outpatient (RCR) | payer MEDICARE, OTHER | END 2020-11-09 14:00 | disposition home or self-care (01) | PROVIDERS: ATTEND Surgery | DX: I89.0 Lymphedema, not elsewhere classified (principal); L97.211 Non-pressure chronic ulcer of right calf limited to breakdown of skin; I50.9 Heart failure, unspecified; E66.01 Morbid (severe) obesity due to excess calories ==

== ENCOUNTER → 2020-11-17 | Outpatient (CLI) | payer MEDICARE, OTHER | LOC: WOUNDCARE 08:23 | PROVIDERS: ATTEND Surgery | DX: I89.0 Lymphedema, not elsewhere classified (principal); L97.221 Non-pressure chronic ulcer of left calf limited to breakdown of skin; E66.01 Morbid (severe) obesity due to excess calories; R54 Age-related physical debility; Z68.41 Body mass index [BMI] 40.0-44.9, adult | CPT/HCPCS: 99212 ==

== ENCOUNTER 2021-02-13 11:58 | Observation (INO) | payer MEDICARE, OTHER ==
[2021-02-13] VITALS (7 sets, daily range): BP systolic 150–173; BP diastolic 62–75
[~2021-02-13] VITALS: Ht 157 cm; Wt 100.0 kg
[2021-02-13] MEDS ORDERED: fentaNYL INJ 100 MCG/2 ML AMP IVP STA (12:16)
[2021-02-13 12:26] LABS: BASOPHILS # (AUTO) 0.1 10^3/uL (0.0-0.1); BASOPHILS % (AUTO) 0 % (0-10); EOSINOPHILS # (AUTO) 0.5 10^3/uL (0.0-0.3); EOSINOPHILS % (AUTO) 3 % (0-10); HEMATOCRIT 21 % (35-52); LYMPHOCYTES # (AUTO) 3.5 10^3/uL (1.0-4.0); LYMPHOCYTES % (AUTO) 21 % (12-44); MEAN CORPUSCULAR HEMOGLOBIN 27 pg (25-34); MEAN CORPUSCULAR HGB CONC 30 g/dL (32-36); MEAN CORPUSCULAR VOLUME 90 fL (80-99); MEAN PLATELET VOLUME 10.6 fL (9.0-12.2); MONOCYTES % (AUTO) 12 % (0-12); NEUTROPHILS # (AUTO) 10.1 10^3/uL (1.8-7.8); NEUTROPHILS % (AUTO) 61 % (42-75); PLATELET COUNT 331 10^3/uL (130-400); WHITE BLOOD COUNT 16.4 10^3/uL (4.3-11.0)
--- NOTE | 2021-02-13 12:34 | ED General ---
General Stated Complaint: RIGHT HIP PAIN Source of Information: Patient Exam Limitations: No Limitations History of Present Illness Date Seen by Provider: Feb 13, 2021 Time Seen by Provider: 12:12 Initial Comments Here with complaint of right low back pain that radiates down over the right hip to the upper right leg. Had injection done earlier this week. She has had injection done previously in about the same area for foraminal narrowing secondary to previous compression fracture. She follows with Dr. Gaytan and Dr. Salas in [place]. They were trying to do the second injection and see if it helped as the first 1 did before moving to more significant therapy options. Denies fever chills. Denies numbness between her legs. Denies bowel or bladder incontinence or difficulty with walking. Does admit to increasing shortness of breath recently but denies chest pain. Patient is on Xarelto. Timing/Duration: 1-2 Days Severity: Moderate Associated Systoms: Other (Right hip and back pain) Allergies and Home Medications Allergies Coded Allergies: Sulfa (Sulfonamide Antibiotics) (Verified Allergy, Mild, ITCHING/SWOLLEN HANDS, 04/06/20) Home Medications Amitriptyline HCl 10 Mg Tablet, 10 MG PO HS, (Reported) Aspirin 81 Mg Tablet.dr, 81 MG PO BID, (Reported) Furosemide 20 Mg Tablet, 20 MG PO DAILY PRN for SWELLING, (Reported) Gabapentin 300 Mg Capsule, 300 MG PO TID, (Reported) Levothyroxine Sodium 50 Mcg Tablet, 50 MCG PO DAILY, (Reported) Lisinopril 10 Mg Tablet, 10 MG PO DAILY, (Reported) Metoprolol Succinate 25 Mg Tab.er.24h, 25 MG PO DAILY, (Reported) Simvastatin 40 Mg Tablet, 40 MG PO HS, (Reported) Vit C/E/Zn/Coppr/Lutein/Zeaxan 1 Each Capsule, 1 EACH PO BID, (Reported) Patient Home Medication List Home Medication List Reviewed: Yes Review of Systems Review of Systems Constitutional: see HPI; No chills, No fever EENTM: no symptoms reported Respiratory: No cough; dyspnea on exertion Cardiovascular: No chest pain; edema Gastrointestinal: No nausea, No vomiting Genitourinary: No dysuria, No incontinence Musculoskeletal: back pain, joint pain Skin: change in color (Venous stasis changes), lesions (Left lower extremity) Psychiatric/Neurological: No Symptoms Reported All Other Systems Reviewed Negative Unless Noted: Yes Past Nwrjitv-Aroxyc-Sfhuxx Hx Past Med/Social Hx: Reviewed Nursing Past Med/Soc Hx Patient Social History Alcohol Use: Denies Use Smoking Status: Never a Smoker Type Used: Cigarettes Former Smoker, Quit: Feb 10, 1985 2nd Hand Smoke Exposure: No Recent Hopitalizations: No Immunizations Up To Date Tetanus Booster (TDap): Unknown Date of Pneumonia Vaccine: Aug 28, 2013 Date of Influenza Vaccine: Jun 05, 2019 Seasonal Allergies Seasonal Allergies: No Past Medical History Surgeries: Yes (COLOSTOMY) Appendectomy, Bowel Surgery, Hysterectomy, Orthopedic Respiratory: No Currently Using CPAP: No Currently Using BIPAP: No Cardiac: Yes Hypertension Neurological: No Neuropathy Sexually Transmitted Disease: No HIV/AIDS: No Genitourinary: No Bladder Infection, UTI-Chronic Gastrointestinal: Yes (PERFORATED BOWEL/BOWEL RESECTION/COLOSTOMY) Gastroesophageal Reflux, Diverticulosis Musculoskeletal: Yes Chronic Back Pain Endocrine: Yes Hypothyroidsim HEENT: Yes (READING GLASSES) Loss of Vision: Denies Hearing Impairment: Denies Cancer: Yes Uterine Did You Recieve Any Treatments: Yes What Type of Treatment Did You: Surgical Intervention Psychosocial: No Integumentary: Yes Recent Skin Changes Blood Disorders: No Adverse Reaction/Blood Tranf: No (HAS HAD BLOOD WITH NO REACTION) Family Medical History Reviewed Nursing Family Hx Cancer, Diabetes, Hypertension Physical Exam Vital Signs Vital Signs - First Documented 02/13/21 12:41 Temp 36.9 Pulse 76 Resp 20 B/P (MAP) 202/78 (119) Pulse Ox 98 O2 Delivery Room Air Capillary Refill : Height, Weight, BMI Height: 5'2.00" Weight: 200lbs. 0.0oz. 90.134237si; 40.22 BMI Method: General Appearance: No Apparent Distress, WD/WN HEENT: PERRL/EOMI, Pharynx Normal Neck: Non Tender, Supple Respiratory: Lungs Clear, Normal Breath Sounds Cardiovascular: Regular Rate, Rhythm, No Murmur Gastrointestinal: Non Tender, Soft Back: Normal Inspection, No CVA Tenderness, No Vertebral Tenderness Extremity: Normal Range of Motion, Non Tender, Pedal Edema (2+ edema bilateral lower extremities up to knees. Does have some edema blisters bilateral lower extremities with left leg that has small healing abrasion.) Neurologic/Psychiatric: Alert, Oriented x3 Skin: Warm/Dry, Other (Blisters as noted above) Procedures/Interventions Date of ETT Placement: May 30, 2019 Progress/Results/Core Measures Suspected Sepsis SIRS Temperature: Pulse: Respiratory Rate: Laboratory Tests 02/13/21 12:18: White Blood Count 16.4H Blood Pressure / Mean: Laboratory Tests 02/13/21 12:18: Creatinine 1.64H, Platelet Count 331 Results/Orders Lab Results Laboratory Tests Test 02/13/21 12:18 Range/Units White Blood Count 16.4 H 4.3-11.0 10^3/uL Red Blood Count 2.37 L 3.80-5.11 10^6/uL Hemoglobin 6.4 *L 11.5-16.0 g/dL Hematocrit 21 L 35-52 % Mean Corpuscular Volume 90 80-99 fL Mean Corpuscular Hemoglobin 27 25-34 pg Mean Corpuscular Hemoglobin Concent 30 L 32-36 g/dL Red Cell Distribution Width 14.2 10.0-14.5 % Platelet Count 331 130-400 10^3/uL Mean Platelet Volume 10.6 9.0-12.2 fL Immature Granulocyte % (Auto) 2 % Neutrophils (%) (Auto) 61 42-75 % Lymphocytes (%) (Auto) 21 12-44 % Monocytes (%) (Auto) 12 0-12 % Eosinophils (%) (Auto) 3 0-10 % Basophils (%) (Auto) 0 0-10 % Neutrophils # (Auto) 10.1 H 1.8-7.8 10^3/uL Lymphocytes # (Auto) 3.5 1.0-4.0 10^3/uL Monocytes # (Auto) 2.0 H 0.0-1.0 10^3/uL Eosinophils # (Auto) 0.5 H 0.0-0.3 10^3/uL Basophils # (Auto) 0.1 0.0-0.1 10^3/uL Immature Granulocyte # (Auto) 0.4 H 0.0-0.1 10^3/uL Sodium Level 140 135-145 MMOL/L Potassium Level 5.3 H 3.6-5.0 MMOL/L Chloride Level 110 H 98-107 MMOL/L Carbon Dioxide Level 19 L 21-32 MMOL/L Anion Gap 11 5-14 MMOL/L Blood Urea Nitrogen 47 H 7-18 MG/DL Creatinine 1.64 H 0.60-1.30 MG/DL Estimat Glomerular Filtration Rate 30 BUN/Creatinine Ratio 29 Glucose Level 104 70-105 MG/DL Calcium Level 8.8 8.5-10.1 MG/DL C-Reactive Protein High Sensitivity 1.58 H 0.00-0.50 MG/DL My Orders Orders - ROB HOUSE MD Basic Metabolic Panel (02/13/21 12:16) Cbc With Automated Diff (02/13/21 12:16) Hs C Reactive Protein (02/13/21 12:16) Erythrocyte Sedimentation Rate (02/13/21 12:16) Fentanyl Inj (Sublimaze Injection) (02/13/21 12:16) Ed Iv/Invasive Line Start (02/13/21 12:16) Manual Differential (02/13/21 12:18) Red Cells Leukocytes Reduced (02/13/21 13:21) Type And Screen (02/13/21 12:44) Vital Signs/I&O 02/13/21 12:41 Temp 36.9 Pulse 76 Resp 20 B/P (MAP) 202/78 (119) Pulse Ox 98 O2 Delivery Room Air Capillary Refill : Progress Note : Progress Note Seen and evaluated. IV and labs ordered. Fentanyl 50 mcg IV for pain. Labs ordered to evaluate for infective cause of pain. Monitor patient. 1325: Pain much better per the patient after the fentanyl. We did find that the patient's hemoglobin was 6.4 and 6.0 on recheck. Patient denies bowel problems or bloody stools. Denies dark tarry stools. Historically, patient has hemoglobin in the sevens and eights typically although has been up as high as 10. Patient is on Xarelto. Denies any significant bleeding from anywhere. Rechecking the back does not show any hematoma. Given her blood counts and the report of increasing shortness of air, patient will need transfusion. I did discuss the case with Dr. Lanza who accepts patient for admission, observation status for blood transfusion. Type and cross for 2 units ordered to give. Findings and concerns discussed with patient and family who agree with plan. Admit, observation status. Departure Communication (Admissions) Time/Spoke to Admitting Phy: 13:25 Impression Primary Impression: Anemia requiring transfusions Additional Impression: Right hip pain Disposition: ADMITTED INPATIENT Condition: Stable Admissions Decision to Admit Reason: Admit from ER (General) Decision to Admit/Date: Feb 13, 2021 Time/Decision to Admit Time: 13:25 Departure-Patient Inst. Referrals: MADYSON HERMAN MD (PCP/Family) Primary Care Physician ROB HOUSE MD Feb 13, 2021 12:33
[2021-02-13 12:36] LABS: POTASSIUM 5.3 MMOL/L (3.6-5.0)
[2021-02-13 12:37] LABS: CALCIUM 8.8 MG/DL (8.5-10.1)
[2021-02-13 12:42] LABS: CREATININE SERUM 1.64 MG/DL (0.60-1.30)
[2021-02-13 13:11] LABS: HEMOGLOBIN 6.4 g/dL (11.5-16.0)
[2021-02-13 13:38] LABS: NEUTROPHILS % (MANUAL) 70 %
[2021-02-13 13:39] LABS: ANISOCYTOSIS SLIGHT; HYPOCHROMASIA MODERATE; LYMPHOCYTES % (MANUAL) 21 %; MICROCYTOSIS SLIGHT; MONOCYTES % (MANUAL) 9 %
[2021-02-13 13:41] LABS: ERYTHROCYTE SEDIMENTATION RATE 120 MM/HR (0-30)
[2021-02-13] MEDS ORDERED: CATHETER FLUSH 10 ML SYR IV PRN (14:30)
[2021-02-13] MEDS ORDERED: NS IV 500 ML 500 ML IV SCH (14:30)
[2021-02-13] MEDS ORDERED: HYDROcodone/APAP 5 MG/325 MG (LORTAB) TAB PO PRN (14:45)
[2021-02-13] MEDS ORDERED: FUROSEMIDE 40 MG/4 ML INJ (LASIX) IVP ONE (15:00)
[2021-02-13] MEDS ORDERED: FUROSEMIDE 40 MG/4 ML INJ (LASIX) ONE (20:17)
[2021-02-13] MEDS: CATHETER FLUSH 10 ML SYR IV SCH (20:25)
[2021-02-14 00:25] VITALS: BP 111/73
[2021-02-14 00:26] VITALS: BP 111/73
[2021-02-14 04:37] VITALS: BP 165/64
[2021-02-14 05:32] LABS: BASOPHILS # (AUTO) 0.1 10^3/uL (0.0-0.1); BASOPHILS % (AUTO) 1 % (0-10); EOSINOPHILS # (AUTO) 0.6 10^3/uL (0.0-0.3); EOSINOPHILS % (AUTO) 4 % (0-10); HEMATOCRIT 30 % (35-52); HEMOGLOBIN 9.4 g/dL (11.5-16.0); LYMPHOCYTES # (AUTO) 2.6 10^3/uL (1.0-4.0); LYMPHOCYTES % (AUTO) 18 % (12-44); MEAN CORPUSCULAR HEMOGLOBIN 27 pg (25-34); MEAN CORPUSCULAR HGB CONC 31 g/dL (32-36); MEAN CORPUSCULAR VOLUME 88 fL (80-99); MEAN PLATELET VOLUME 10.7 fL (9.0-12.2); MONOCYTES # (AUTO) 1.7 10^3/uL (0.0-1.0); MONOCYTES % (AUTO) 12 % (0-12); NEUTROPHILS # (AUTO) 8.8 10^3/uL (1.8-7.8); NEUTROPHILS % (AUTO) 62 % (42-75); PLATELET COUNT 318 10^3/uL (130-400); WHITE BLOOD COUNT 14.2 10^3/uL (4.3-11.0)
[2021-02-14] MEDS: CATHETER FLUSH 10 ML SYR IV SCH (06:05)
[2021-02-14 08:00] VITALS: BP 180/80
--- NOTE | 2021-02-14 10:52 | Short Stay Summary-Hospitalist ---
History of Present Illness HPI/Chief Complaint Pt is an 80yoCF who presented to the Er due to severe back pain. She follows in [place] for this and had a spinal injection done the day before admission but depsite this had worsening of pain on the right side that radiated down her right leg. She reported it was very severe. She denied any numbness or weakness. She has not bowel or bladder incontinence. She was incidentally found to have a hemoglobin of 6.4 and was admitted for observation for multiple transfuses. She denies any melena, hematemesis, or vaginal bleeding. This morning she reports doing well and has no further pain. She had one hydrocodone last night and that improved her pain. Her SOB is improved and she reports her edema in her legs is chronic and stable. She is requesting discharge home. Date Seen 02/14/21 Time Seen by a Provider: 10:52 Attending Physician Cody Gómez MD PCP Cody Gómez MD Referring Physician Date of Admission Feb 13, 2021 at 13:49 Home Medications & Allergies Home Medications Reviewed patient Home Medication Reconciliation performed by pharmacy medication reconciliations qc lab technician and/or nursing. Patients Allergies have been reviewed. Allergies Allergies Coded Allergies Sulfa (Sulfonamide Antibiotics) (Verified Allergy, Mild, ITCHING/SWOLLEN HANDS, 04/06/20) Past Aefypnh-Aikcwv-Artvoj Hx Patient Social History Employed/Student: retired Tobacco Use?: No Smoking Status: Never a Smoker Smokeless Tobacco Frequency: Never a User Pt feels they are or have been: No Immunizations Up To Date Date of Influenza Vaccine: Jun 05, 2019 Second COVID19 Vaccination Rajeev: PT STATES HAS HAD BOTH Tetanus Booster (TDap): More Than 5 Years Date of Pneumonia Vaccine: Aug 28, 2013 Seasonal Allergies Seasonal Allergies: No Current Status Advance Directives: Yes Communicates: Verbally Primary Language: Ecuadorean Preferred Spoken Language: Ecuadorean Is interpretation needed?: No Sensory deficits: Vision impairment, Hearing impairment Implanted or Applied Medical D: None Past Medical History Surgeries: Appendectomy, Bowel Surgery, Hysterectomy, Orthopedic Currently Using CPAP: No Currently Using BIPAP: No Hypertension Neuropathy Sexually Transmitted Disease: No HIV/AIDS: No Bladder Infection, UTI-Chronic Gastroesophageal Reflux, Diverticulosis Chronic Back Pain Hypothyroidsim Loss of Vision: Denies Hearing Impairment: Denies Uterine Did You Recieve Any Treatments: Yes What Type of Treatment Did You: Surgical Intervention Recent Skin Changes Blood Disorders: No Adverse Reaction/Blood Tranf: No (HAS HAD BLOOD WITH NO REACTION) Family Medical History Reviewed Nursing Family Hx Cancer, Diabetes, Hypertension Review of Systems Constitutional: No chills, No fever EENTM: no symptoms reported Respiratory: short of breath Cardiovascular: no symptoms reported Gastrointestinal: No hematemesis, No melena Genitourinary: No hematuria Musculoskeletal: other (hip pain) Skin: no symptoms reported Psychiatric/Neurological: No Symptoms Reported Physical Exam Physical Exam Vital Signs Vital Signs - First Documented 02/13/21 02/13/21 12:41 14:30 Temp 36.9 Pulse 76 Resp 20 B/P (MAP) 202/78 (119) Pulse Ox 98 O2 Delivery Room Air O2 Flow Rate 2.00 Capillary Refill : Less Than 3 Seconds Height, Weight, BMI Height: 5'2.00" Weight: 200lbs. 0.0oz. 90.093369vc; 40.56 BMI Method: General Appearance: No Apparent Distress, WD/WN HEENT: PERRL/EOMI; No Scleral Icterus (L), No Scleral Icterus (R) Neck: Normal Inspection, Supple Respiratory: Lungs Clear, No Accessory Muscle Use Cardiovascular: Regular Rate, Rhythm, No Murmur Gastrointestinal: Normal Bowel Sounds, Non Tender, Soft Back: Normal Inspection, No CVA Tenderness, No Vertebral Tenderness Extremity: Normal Range of Motion, Non Tender, Pedal Edema (chronic and at baseline per patient with some venous stasis dermatitis) Neurologic/Psychiatric: Alert, Oriented x3 Skin: Warm/Dry Results Results/Procedures Labs Patient resulted labs reviewed. Short Stay Diagnosis Discharge Diagnosis-Short Stay Admission Diagnosis Acute on chronic anemia of chronic disease Final Discharge Diagnosis Acute on chronic anemia of chronic disease Conclusion Plan Acute on chronic anemia of chronic disease hgb 6.4 on arrival Up to 9.4 s/p 2u blood transfusions No evidence of bleeding Will need outpatient follow up, plans to see Dr Gómez this week for repeat labs as well Requesting DC home, will do Chronic back pain Had just had injection with minimal improvement with pain specialist Will prescribe very short course hydrocodone as it has relieved her pain here with just one nightly dose DVT ppx: SCD only due to anemia Diagnosis/Problems Diagnosis/Problems (1) Anemia of chronic disease (2) Anemia requiring transfusions Status: Acute (3) CKD (chronic kidney disease), stage IV (4) Hypothyroid Status: AMRIT Aguayo MD Feb 14, 2021 10:52
[2021-02-14] MEDS ORDERED: ACHD5005 PO ×2 (10:56)
--- NOTE | 2021-02-14 10:58 | Discharge Inst-Simple/Standard ---
Discharge Inst-Standard Discharge Medications New, Converted or Re-Newed RX: RX on Chart Patient Instructions/Follow Up Plan of Care/Instructions/FU: Please continue to take your medications as written. Please follow up with your primary care doctor to follow up this hospital stay. Activity as Tolerated: Yes Discharge Diet: No Restrictions Return to The Hospital For: Chest pain, shortness of breath, weakness, bleeding, worsening pain, fever, if you feel you are getting worse. AMRIT PALMER MD Feb 14, 2021 10:58
== END 2021-02-14 11:15 | disposition home or self-care (01) ==
LOC: EDUNIT# 11:58 → ER 12:00 → 4TH 13:49
PROVIDERS: ADMIT Family Medicine; ATTEND Family Medicine
DX: D63.1 Anemia in chronic kidney disease (principal); N18.4 Chronic kidney disease, stage 4 (severe); I12.9 Hypertensive chronic kidney disease with stage 1 through stage 4 chronic kidney disease, or unspecified chronic kidney disease; M25.551 Pain in right hip; I10 Essential (primary) hypertension; G62.9 Polyneuropathy, unspecified; N39.0 Urinary tract infection, site not specified; K21.9 Gastro-esophageal reflux disease without esophagitis; M54.9 Dorsalgia, unspecified; G89.29 Other chronic pain; E03.9 Hypothyroidism, unspecified; Z79.82 Long term (current) use of aspirin; Z79.899 Other long term (current) drug therapy; Z79.890 Hormone replacement therapy; Z87.891 Personal history of nicotine dependence; Z90.89 Acquired absence of other organs; Z90.710 Acquired absence of both cervix and uterus; Z83.3 Family history of diabetes mellitus; Z80.9 Family history of malignant neoplasm, unspecified
CPT/HCPCS: 36430; 80048; 85007; 85025; 85027; 85652; 86141; 86850; 86900; 86901; 86920; 99284; G0378; P9016; 36415

== ENCOUNTER → 2021-02-17 | Outpatient (CLI) | payer MEDICARE, OTHER ==
[2021-02-17 11:43] LABS: HEMATOCRIT 31 % (35-52); HEMOGLOBIN 9.6 g/dL (11.5-16.0); MEAN CORPUSCULAR HEMOGLOBIN 28 pg (25-34); MEAN CORPUSCULAR HGB CONC 31 g/dL (32-36); MEAN CORPUSCULAR VOLUME 90 fL (80-99); MEAN PLATELET VOLUME 10.3 fL (9.0-12.2); PLATELET COUNT 326 10^3/uL (130-400); WHITE BLOOD COUNT 12.7 10^3/uL (4.3-11.0)
[2021-02-17 12:04] LABS: CALCIUM 9.5 MG/DL (8.5-10.1); CREATININE SERUM 1.58 MG/DL (0.60-1.30); POTASSIUM 4.7 MMOL/L (3.6-5.0)
--- NOTE | 2021-02-17 15:24 | Diagnostic Imaging Report ---
INDICATION: Right hip pain. TIME OF EXAM: 11:51 AM. FINDINGS: Two views of the right hip demonstrate postop changes of total hip arthroplasty. There are fractures involving the right-sided superior and inferior pubic rami. There also are likely fractures of the left-sided superior and inferior pubic rami only partially included on this study. These were not present on the CT study from 06/05/2019. The symphysis is not widened. The right hip hardware appears to be intact without fracture or loosening. IMPRESSION: Superior and inferior pubic rami fractures. The right hip is intact. Dictated by: Dictated on workstation # [id number]
== END ==
LOC: RAD 11:22
PROVIDERS: ATTEND Family Medicine
DX: S32.511A Fracture of superior rim of right pubis, initial encounter for closed fracture (principal); S32.591A Other specified fracture of right pubis, initial encounter for closed fracture; X58.XXXA Exposure to other specified factors, initial encounter; N18.9 Chronic kidney disease, unspecified
CPT/HCPCS: 36415; 73502; 80048; 85027

== ENCOUNTER 2021-03-04 10:35 | Inpatient (IN) | payer MEDICARE, OTHER ==
[~2021-03-04] VITALS: Ht 157 cm; Wt 97.2 kg
[2021-03-04 12:14] VITALS: BP 172/75
[2021-03-04 12:37] LABS: BASOPHILS # (AUTO) 0.1 10^3/uL (0.0-0.1); BASOPHILS % (AUTO) 1 % (0-10); EOSINOPHILS # (AUTO) 0.2 10^3/uL (0.0-0.3); EOSINOPHILS % (AUTO) 2 % (0-10); HEMATOCRIT 35 % (35-52); HEMOGLOBIN 10.6 g/dL (11.5-16.0); LYMPHOCYTES # (AUTO) 1.9 10^3/uL (1.0-4.0); LYMPHOCYTES % (AUTO) 20 % (12-44); MEAN CORPUSCULAR HEMOGLOBIN 27 pg (25-34); MEAN CORPUSCULAR HGB CONC 30 g/dL (32-36); MEAN CORPUSCULAR VOLUME 91 fL (80-99); MEAN PLATELET VOLUME 10.9 fL (9.0-12.2); MONOCYTES # (AUTO) 0.7 10^3/uL (0.0-1.0); MONOCYTES % (AUTO) 7 % (0-12); NEUTROPHILS # (AUTO) 6.6 10^3/uL (1.8-7.8); NEUTROPHILS % (AUTO) 70 % (42-75); PLATELET COUNT 411 10^3/uL (130-400); WHITE BLOOD COUNT 9.4 10^3/uL (4.3-11.0)
[2021-03-04 12:57] LABS: CALCIUM 9.8 MG/DL (8.5-10.1); CREATININE SERUM 1.74 MG/DL (0.60-1.30); POTASSIUM 4.3 MMOL/L (3.6-5.0)
[2021-03-04] MEDS: fentaNYL PATCH 50 MCG (DURAGESIC) TD SCH (13:49)
--- NOTE | 2021-03-04 14:04 | Physical Therapy Evaluation ---
PT Evaluation-General Medical Diagnosis Admission Date Mar 04, 2021 at 12:03 Medical Diagnosis: pelvic fracture/inability to walk Onset Date: Mar 04, 2021 Therapy Diagnosis Therapy Diagnosis: debility Height/Weight Height (Feet): 5 Height (Inches): 2.00 Weight (Pounds): 200 Weight (Ounces): 0.0 Precautions Precautions/Isolations: Standard Precautions Weight Bear Status Right Lower Extremity: Right Weight Bearing/Tolerated Left Lower Extremity: Left Weight Bearing/Tolerated Referral Physician: Rico Reason for Referral: Evaluation/Treatment Medical History Pertinent Medical History: Diverticulitis, Heart Failure, HTN, Renal Insufficiency Current History Direct admit secondary to pelvic fracture with no trauma. Reviewed History: Yes Social History Home: Single Level Current Living Status: Children (daughter) Prior Prior Level of Function SCALE: Activities may be completed with or without assistive devices. 9-Kbiuernbsd-bpopigj completes the activity by him/herself with no assistance from a helper. 5-Set-up or Clean-up Assistance-helper sets up or cleans up; patient completes activity. [place] assists only prior to or following the activity. 4-Supervision or Touching Assistance-helper provides verbal cues and/or touching/steadying and/or contact guard assistance as patient completes activity. Assistance may be provided throughout the activity or intermittently. 3-Partial/Moderate Assistance-helper does LESS THAN HALF the effort. [place] lifts, holds or supports trunk or limbs, but provides less than half the effort. 2-Substantial/Maximal Assistance-helper does MORE THAN HALF the effort. [place] lifts or holds trunk or limbs and provides more than half the effort. 6-Omkgulpxb-kdwrfx does ALL the effort. Patient does none of the effort to complete the activity. Or, the assistance of 2 or more helpers is required for the patient to complete the activity. If activity was not attempted, code reason: 7-Patient Refused. 9-Not Applicable-not attempted and the patient did not perform the activity before the current illness, exacerbation or injury. 10-Not Attempted due to Environmental Limitations-(lack of equipment, weather restraints, etc.). 88-Not Attempted due to Medical Conditions or Safety Concerns. Bed Mobility: 6 Transfers (B,C,W/C): 6 Gait: 6 Indoor Mobility (Ambulation): Independent Prior Devices Use: Walker PT Evaluation-Current Subjective Patient agrees to PT. Rates pelvic pain 6/10. Objective Patient Orientation: Normal For Age ROM/Strength ROM Lower Extremities bilateral LE WFL Strength Lower Extremities 3+/5 grossly bilateral LE Integumentary/Posture Bowel Incontinence: No Bladder Incontinence: No Posture WFL Neuromuscular (Tone, Coordination, Reflexes) grossly intact Sensory Vision: Functional Hearing: Functional Sensation Right Lower Extremit: Intact Sensation Left Lower Extremity: Intact Transfers Roll Left to Right (QC): 4 Sit to Lying (QC): 3 Lying to Sitting/Side of Bed(Q: 4 Sit to Stand (QC): 4 Chair/Svo-yh-Clpxg Xfer(QC): 4 SBA with mobility with exception to help 1 LE with sit to supine Gait Does the Patient Walk?: Yes Mode of Locomotion: Walk Anticipated Mode of Locomotion: Walk Walk 10 feet (QC): 4 (SBA) Walk 50 ft with 2 Turns(QC): 4 (SBA) Walk 150 ft (QC): 4 (SBA) Distance: 175' Gait Assistive Device: FWW Comments/Gait Description reciprocal pattern Balance Sitting Static: Normal Sitting Dynamic: Normal Standing Static: Normal Standing Dynamic: Normal Assessment/Needs 80 y.o. female, will be seen short term by skilled PT to address functional strength and mobility to improve current LOF to safely return to home at maximum LOF. Patient lives with daughter. Rehab Potential: Fair PT Cryptologic Technician Goals [facility] Goals PT [facility] Goals Time Frame: Mar 13, 2021 Roll Left & Right (QC): 6 Sit to Lying (QC): 6 Lying-Sitting on Side/Bed(QC): 6 Sit to Stand (QC): 6 Chair/Yhi-uh-Jlibu Xfer(QC): 6 Toilet Transfer (QC): 6 Does the Patient Walk: Yes Walk 10 feet (QC): 6 Walk 50ft with 2 Turns (QC): 6 Walk 150 ft (QC): 6 PT Plan Problem List Problem List: Activity Tolerance Treatment/Plan Treatment Plan: Continue Plan of Care Treatment Plan: Bed Mobility, Education, Functional Activity [place], Functional Strength, Gait, Safety, Therapeutic Exercise, Transfers Treatment Duration: Mar 13, 2021 Frequency: 6 times per week Estimated Hrs Per Day: .25 hour per day Patient and/or Family Agrees t: Yes Discharge Recommendations Therapy Discharge Recommendati: Home & Family Time/GCodes Time In: 1330 Time Out: 1347 Total Billed Treatment Time: 17 [facility] RYLAND AP[facility] PT Mar 04, 2021 14:04
[2021-03-04] MEDS ORDERED: GABA300C PO (15:07)
[2021-03-04] MEDS ORDERED: LATA2.5D19 OU (15:07)
[2021-03-04] MEDS ORDERED: BUME1TAB8 PO (15:07)
[2021-03-04] MEDS ORDERED: OXYC5TAB PO (15:07)
[2021-03-04] MEDS ORDERED: LEVO50TA6 PO (15:07)
[2021-03-04] MEDS ORDERED: LISI20TA26 PO (15:07)
[2021-03-04] MEDS ORDERED: ACHD5005 PO (15:07)
[2021-03-04] MEDS ORDERED: RIVA20TA PO (15:18)
[2021-03-04 16:00] VITALS: BP 214/83
[2021-03-04] MEDS ORDERED: lisINopril 20 MG (PRINIVIL) TABLET PO NR (16:45)
[2021-03-04 19:25] VITALS: BP 156/80
[2021-03-04] MEDS: AMITRIPTYLINE 10 MG (ELAVIL) TAB PO SCH (19:57)
[2021-03-04] MEDS: SIMvastatin 40 MG (ZOCOR) TAB PO SCH (19:57)
[2021-03-04] MEDS: GABAPENTIN 300 MG (NEURONTIN) CAP PO SCH (19:57)
[2021-03-04] MEDS: ASPIRIN E.C. 81 MG (ECOTRIN) TAB PO SCH (19:57)
[2021-03-04] MEDS: LATANOPROST 0.005% (XALATAN) OPHTH SOLN 2.5 ML OU SCH (19:58)
--- NOTE | 2021-03-04 22:41 | History & Physical ---
History of Present Illness History of Present Illness Reason for visit/HPI 80 year old female admitted for intractable pelvic pain secondary to pelvic fractures involving the right superior and inferior pubic rami as well as likely the sacrum. Unsure of a specific injury to cause this. She does work at the [employer]. She gets up and down from a metal stool but no injury. Patient was seen today by her orthopedic surgeon, Dr. Gaytan who called me to say she likely needs admitted to get her pain under control. She has not been able to be managed in outpatient setting due to pain and need for physical therapy. She will also benefit from closer monitoring for skin breakdown. CT done by Dr. Gaytan's office showed that her pelvic fractures are healing. Patient reports with movement her pain is greater than 10. Patient also has hypothyroidism and anemia of chronic disease/Fe deficiency anemia. 3 weeks ago she was admitted for symptomatic anemia (Hgb 6.2) and transfused 2units of pRBC. On admission labs- her creatinine was elevated so we will want to improve this prior to discharge. Blood pressure elevated on admission. Patient does not think she took her medication this AM. Patient also complains of burning when she urinates. She thinks she may have a bladder infection. She does have a history of ESBL uti August 2019. Date of Admission Mar 04, 2021 at 16:50 Date Seen by a Provider: Mar 04, 2021 Time Seen by a Provider: 22:36 I consulted on this patient on 03/04/21 22:36 Attending Physician Cody Herman MD Admitting Physician Cody Herman MD Consult Allergies and Home Medications Allergies Coded Allergies: Sulfa (Sulfonamide Antibiotics) (Verified Allergy, Mild, ITCHING/SWOLLEN HANDS, 04/06/20) Home Medications Amitriptyline HCl 10 Mg Tablet, 10 MG PO HS, (Reported) Last Action: Continued Aspirin 81 Mg Tablet.dr, 81 MG PO BID, (Reported) Last Action: Continued Bumetanide 1 Mg Tablet, 1 MG PO Q72H PRN for FLUID RETENTION, (Reported) Last Action: Reviewed Gabapentin 300 Mg Capsule, 300 MG PO 1200,1500,2000, (Reported) Last Action: Continued Hydrocodone/Acetaminophen 1 Each Tablet, 1-2 TAB PO Q8H PRN for PAIN-MODERATE (5-7), (Reported) Last Action: Reviewed Latanoprost 2.5 Ml Drops, 1 DROPS OU HS, (Reported) Last Action: Continued Levothyroxine Sodium 50 Mcg Tablet, 50 MCG PO DAILY, (Reported) Last Action: Continued Lisinopril 20 Mg Tablet, 40 MG PO DAILY, (Reported) TAKES 2 (20MG) TABS Last Action: Continued Metoprolol Succinate 25 Mg Tab.er.24h, 25 MG PO 1500, (Reported) Last Action: Continued Oxycodone HCl 5 Mg Tablet, 5 MG PO Q4H PRN for PAIN-SEVERE (8-10), (Reported) Last Action: Reviewed Rivaroxaban 20 Mg Tablet, 20 MG PO DAILY, (Reported) Last Action: Continued Simvastatin 40 Mg Tablet, 40 MG PO HS, (Reported) Last Action: Continued Patient Home Medication List Home Medication List Reviewed: Yes Past Midvrox-Zblxza-Rdvhfr Hx Patient Social History Smoking Status: Former Smoker Former Smoker, Quit: Feb 10, 1985 2nd Hand Smoke Exposure: No Recent Hopitalizations: No Have you traveled recently?: No Alcohol Use?: No Pt feels they are or have been: No Immunizations Up To Date Tetanus Booster (TDap): Unknown Date of Pneumonia Vaccine: Aug 28, 2013 Date of Influenza Vaccine: Jun 05, 2019 Seasonal Allergies Seasonal Allergies: No Surgeries Yes (COLOSTOMY) Appendectomy, Bowel Surgery, Hysterectomy, Orthopedic Respiratory No Currently Using CPAP: No Currently Using BIPAP: No Cardiovascular Yes Hypertension Neurological No Neuropathy Reproductive System Sexually Transmitted Disease: No HIV/AIDS: No Genitourinary No Bladder Infection, UTI-Chronic Gastrointestinal Yes (PERFORATED BOWEL/BOWEL RESECTION/COLOSTOMY) Gastroesophageal Reflux, Diverticulosis Musculoskeletal Yes Chronic Back Pain Endocrine History of Endocrine Disorders: Yes Endocrine Disorders: Hypothyroidsim HEENT History of HEENT Disorders: Yes (READING GLASSES) Loss of Vision: Denies Hearing Impairment: Denies Cancer Yes Uterine Did You Recieve Any Treatments: Yes Type of Treatment: Surgical Intervention Psychosocial History of Psychiatric Problem: No Integumentary History of Skin or Integumenta: Yes Skin/Integumentary Disorders: Recent Skin Changes Blood Transfusions History of Blood Disorders: No Adverse Reaction to a Blood Tr: No (HAS HAD BLOOD WITH NO REACTION) Family Medical History Significant Family History: Cancer, Diabetes, Hypertension Review of Systems Review of Systems General: No Chills HEENT: No Head Aches Pulmonary: Dyspnea (on exertion about baseline) Cardiovascular: No: Chest Pain, Palpitations Gastrointestinal: No: Nausea, Vomiting Genitourinary: Dysuria Musculoskeletal: other (pelvic pain), back pain Neurological: Weakness; No: Confusion Physical Exam Vital Signs Vital Signs - First Documented 03/04/21 12:14 Temp 36.0 Pulse 79 Resp 19 B/P (MAP) 172/75 (107) Pulse Ox 98 O2 Delivery Room Air Capillary Refill : Height, Weight, BMI Height: 5'2.00" Weight: 200lbs. 0.0oz. 90.914508hs; 42.59 BMI Method: General Appearance: Mild Distress, Moderate Distress (with movement) HEENT: PERRL/EOMI Neck: Non Tender, Supple Respiratory: Chest Non Tender, Lungs Clear, Normal Breath Sounds Cardiovascular: Regular Rate, Rhythm Gastrointestinal: Normal Bowel Sounds, Non Tender, Soft Rectal: Deferred Extremity: Non Tender, Pedal Edema (up to knee) Neurologic/Psychiatric: Alert, Oriented x3, Normal Mood/Affect Skin: Warm/Dry Assessment/Plan Assessment/Plan Admission Dx intractable pelvic pain inability to ambulate pelvic fractures acute on chronic renal failure. Admission Status: Inpatient Order (span 2 midnights) Reason for Inpatient Admission: Patient will be inpatient for over 2 midnights in effort to get her pain controlled. Also will need to improve her acute on chronic renal failure. Difficult balance to with both chronic renal failure and diastolic CHF. Assessment and Plan 03/04/21- direct admit- working on pain control. -PT/OT to work with patient. -po hydration, may need ivf to improve acute on chronic kidney failure. Will repeat cmp in AM. -monitor hgb. Currently mildly anemic. -ordering a bone scan- to further evaluate if there is any pathological reason for her pelvic fractures. Could be an occult malignancy that has not been detected yet. -UTI- will go ahead and start IV levoquin daily as she has history of ESBL UTI in Aug 2019. Dispo: guarded. goal would be to get her pain under control and transfer her to [facility] when stable enough to go to U for rehab. DVT ppx: on xarelto. 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
[2021-03-05 00:18] VITALS: BP 174/68
[2021-03-05] MEDS: PHENAZOPYRIDINE 100 MG (PYRIDIUM) TABLET PO SCH ×4 (01:00→18:39)
[2021-03-05 01:19] LABS: BILIRUBIN,URINE NEGATIVE (NEGATIVE); CLARITY,URINE CLEAR; COLOR,URINE YELLOW; GLUCOSE, URINE (UA) NEGATIVE (NEGATIVE); KETONES,URINE NEGATIVE (NEGATIVE); LEUKOCYTE ESTERASE ,URINE TRACE (NEGATIVE); NITRITE,URINE POSITIVE (NEGATIVE); PH,URINE 6.5 (5-9); PROTEIN,URINE 2+ (NEGATIVE)
[2021-03-05 01:30] LABS: BACTERIA,URINE LARGE /HPF
[2021-03-05 03:44] VITALS: BP 141/69
[2021-03-05] MEDS: LEVOTHYROXINE 50 MCG (LEVOTHROID) TAB PO SCH (06:16)
[2021-03-05 07:40] VITALS: BP 167/77
--- NOTE | 2021-03-05 07:57 | Progress Note ---
Subjective Subjective Date Seen by Provider: Mar 05, 2021 Time Seen by Provider: 07:56 No overnight events. She slept okay. The pyridium helped with her dysuria. Pain is staying around a 6. But goes above 10 with movement. Review of Systems General: No Chills HEENT: No Head Aches Pulmonary: Dyspnea (on exertion about baseline) Cardiovascular: No: Chest Pain, Palpitations Gastrointestinal: No: Nausea, Vomiting Genitourinary: Dysuria Musculoskeletal: other (pelvic pain), back pain Neurological: Weakness; No: Confusion Objective Exam Vital Signs Vital Signs Date Time Temp Pulse Resp B/P (MAP) Pulse Ox O2 Delivery O2 Flow Rate FiO2 03/05/21 07:40 36.7 74 20 167/77 (107) 97 Room Air 03/05/21 03:44 36.2 64 20 141/69 (93) 97 Room Air 03/05/21 00:18 36.4 65 20 174/68 (103) 96 Room Air 03/04/21 20:00 Room Air 03/04/21 19:25 36.6 90 20 156/80 (105) 96 Room Air 03/04/21 16:00 36.0 70 18 214/83 (126) 98 Room Air 03/04/21 15:21 Room Air 03/04/21 12:14 36.0 79 19 172/75 (107) 98 Room Air I & O 03/05/21 06:59 Intake Total 400 ml Balance 400 ml General Appearance: Mild Distress, Moderate Distress (with movement) HEENT: PERRL/EOMI Neck: Non Tender, Supple Respiratory: Chest Non Tender, Lungs Clear, Normal Breath Sounds Cardiovascular: Regular Rate, Rhythm Gastrointestinal: Normal Bowel Sounds, Non Tender, Soft Rectal: Deferred Extremity: Non Tender, Pedal Edema (up to knee) Neurologic/Psychiatric: Alert, Oriented x3, Normal Mood/Affect Skin: Warm/Dry Results Lab Laboratory Tests 03/04/21 12:33: White Blood Count 9.4, Red Blood Count 3.88, Hemoglobin 10.6L, Hematocrit 35, Mean Corpuscular Volume 91, Mean Corpuscular Hemoglobin 27, Mean Corpuscular Hemoglobin Concent 30L, Red Cell Distribution Width 14.8H, Platelet Count 411H, Mean Platelet Volume 10.9, Immature Granulocyte % (Auto) 1, Neutrophils (%) (Auto) 70, Lymphocytes (%) (Auto) 20, Monocytes (%) (Auto) 7, Eosinophils (%) (Auto) 2, Basophils (%) (Auto) 1, Neutrophils # (Auto) 6.6, Lymphocytes # (Auto) 1.9, Monocytes # (Auto) 0.7, Eosinophils # (Auto) 0.2, Basophils # (Auto) 0.1, Immature Granulocyte # (Auto) 0.1, Sodium Level 141, Potassium Level 4.3, Chloride Level 109H, Carbon Dioxide Level 21, Anion Gap 11, Blood Urea Nitrogen 38H, Creatinine 1.74H, Estimat Glomerular Filtration Rate 28, BUN/Creatinine Ratio 22, Glucose Level 156H, Calcium Level 9.8 03/05/21 01:00: Urine Color YELLOW, Urine Clarity CLEAR, Urine pH 6.5, Urine Specific [place] 1.020, Urine Protein 2+H, Urine Glucose (UA) NEGATIVE, Urine Ketones NEGATIVE, Urine Nitrite POSITIVEH, Urine Bilirubin NEGATIVE, Urine Urobilinogen 1.0, Urine Leukocyte Esterase TRACEH, Urine RBC (Auto) NEGATIVE, Urine RBC NONE, Urine WBC 10-25H, Urine Crystals NONE, Urine Bacteria LARGEH, Urine Casts NONE, Urine Mucus LARGEH, Urine Culture Indicated YES Assessment/Plan Assessment/Plan Admission Dx intractable pelvic pain inability to ambulate pelvic fractures acute on chronic renal failure. Assessment and Plan 03/04/21- direct admit- working on pain control. -PT/OT to work with patient. -po hydration, may need ivf to improve acute on chronic kidney failure. Will repeat cmp in AM. -monitor hgb. Currently mildly anemic. -ordering a bone scan- to further evaluate if there is any pathological reason for her pelvic fractures. Could be an occult malignancy that has not been detected yet. -UTI- will go ahead and start IV levoquin daily as she has history of ESBL UTI in Aug 2019. 03/05/21- awaiting urine cultures- right now prelim for gram neg adilson. waiting on bone scan to be done. Creatinine better this AM. Monitor pain management. May need to escalate to higher dose of fentanyl patch. Change antibiotics based on urine culture results. Dispo: guarded. goal would be to get her pain under control and transfer her to [facility] when stable enough to go to U for rehab. DVT ppx: on xarelto. 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 Clinical Quality Measures Admission Status Admission Dx intractable pelvic pain inability to ambulate pelvic fractures acute on chronic renal failure. MADYSON HERMAN MD Mar 05, 2021 07:57
[2021-03-05] MEDS: RIVAROXABAN 20 MG TABLET (XARELTO) PO SCH (08:00)
[2021-03-05] MEDS: lisINopril 20 MG (PRINIVIL) TABLET PO SCH (08:00)
[2021-03-05] MEDS: ASPIRIN E.C. 81 MG (ECOTRIN) TAB PO SCH ×2 (08:00→20:09)
[2021-03-05 09:02] LABS: CALCIUM 9.6 MG/DL (8.5-10.1); CREATININE SERUM 1.6 MG/DL (0.60-1.30); POTASSIUM 4.9 MMOL/L (3.6-5.0)
--- NOTE | 2021-03-05 09:44 | Occupational Therapy Eval ---
OT Evaluation-General/PLF Medical Diagnosis Admission Date Mar 04, 2021 at 16:50 Medical Diagnosis: pelvic fracture/inability to walk Onset Date: Mar 04, 2021 Therapy Diagnosis Therapy Diagnosis: Decreased ADL status Height/Weight Height (Feet): 5 Height (Inches): 2.00 Weight (Pounds): 200 Weight (Ounces): 0.0 Precautions Precautions/Isolations: Fall Prevention, Standard Precautions Weight Bear Status Weight Bearing Restriction: Weight Bearing/Tolerated Referral Physician: Rico Referral Reason: Activity Tolerance, Self Care, Evaluation/Treatment, Strengthening/ROM Medical History Pertinent Medical History: Diverticulitis, Heart Failure, HTN, Renal Insufficiency Additional Medical History see above Current History Pt expresses back pain that has increased over time, pt states (03/04) experienced increased pain and came to get checked up. Pelvic fx. WBAT. Reviewed History: Yes Social History Home: Single Level Current Living Status: Children (daughter) ADL-Prior Level of Function SCALE: Activities may be completed with or without assistive devices. 6-Ocqapbaevp-nuylavo completes the activity by him/herself with no assistance from a helper. 5-Set-up or Clean-up Assistance-helper sets up or cleans up; patient completes activity. [place] assists only prior to or following the activity. 4-Supervision or Touching Assistance-helper provides verbal cues and/or touching/steadying and/or contact guard assistance as patient completes activity. Assistance may be provided throughout the activity or intermittently. 3-Partial/Moderate Assistance-helper does LESS THAN HALF the effort. [place] lifts, holds or supports trunk or limbs, but provides less than half the effort. 2-Substantial/Maximal Assistance-helper does MORE THAN HALF the effort. [place] lifts or holds trunk or limbs and provides more than half the effort. 2-Auhyqmlms-wnkxum does ALL the effort. Patient does none of the effort to complete the activity. Or, the assistance of 2 or more helpers is required for the patient to complete the activity. If activity was not attempted, code reason: 7-Patient Refused. 9-Not Applicable-not attempted and the patient did not perform the activity before the current illness, exacerbation or injury. 10-Not Attempted due to Environmental Limitations-(lack of equipment, weather restraints, etc.). 88-Not Attempted due to Medical Conditions or Safety Concerns. ADL PLOF Comments Pt was IND within the home with use of walker, however, did require assist with socks/ footwear. 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 AxO, agrees to eval/ treat. Pt expresses 6/10 pain in stance. Mental Status/Objective Patient Orientation: Person, Place, Situation, Normal For Age Attachments: IV Current Glasses/Contacts: Yes Hearing Aids: No Dentures/Partials: No Hand Dominance: Right Upper Extremity ROM WFL BUE Upper Extremity Coordination WFL BUE Upper Extremity Sensation WFL BUE Upper Extremity Strength WFL BUE Edema: pitting bilaterally ADL-Treatment Eating (QC): 6 Oral Hygiene (QC): 6 On/Off Footwear (QC): 09 Toileting Hygiene (QC): 4 Other Treatments Sit to stand SBA, ambulates to bathroom with FWW. Pt sits with ease, SBA, sit to stand from standard toilet SBA. No LOB, 6/10 pain. Sits in recliner SBA. Expresses PLOF compared to this LOF, expresses pain is only limitation but is able to complete all ADLs. Pt expresses desire to go to [facility] for care. Pt expresses daughter is home during summer but also has activities she completes during the day. Pt denies continued skilled OT tx, OT agrees as she is at PLOF. All needs met, call light in reach, remains in chair. Education OT Patient Education: Correct positioning, Progress toward Goal/Update tx plan Teaching Recipient: Patient Teaching Methods: Demonstration, Discussion Response to Teaching: Verbalize Understanding, Return Demonstration OT Reproductive Healthcare Assistant Goals Reproductive Healthcare Assistant Goals 1=Demonstrate adherence to instructed precautions during ADL tasks. 2=Patient will verbalize/demonstrate understanding of assistive devices/modifications for ADL. 3=Patient will improve strength/tolerance for activity to enable patient to perform ADL's. OT Education/Plan Problem List/Assessment Assessment: No Skilled OT Needs ID'd Discharge Recommendations Plan/Recommendations: Discharge/Goals Met Therapy Discharge Recommendati: Home & Family Treatment Plan/Plan of Care Treatment,Training & Education: Yes Patient would benefit from OT for education, treatment and training to promote independence in ADL's, mobility, safety and/or upper extremity function for ADL's. Plan of Care: OTHER (eval and d/c. ) Treatment Duration: Mar 05, 2021 Frequency: 1 time per week (eval and d/c) Rehab Potential: Fair Time/GCodes Start Time: 09:15 Stop Time: 09:30 Total Time Billed (hr/min): 15 Billed Treatment Time 1, EVL (15) D/c. CHRYSTAL HOPE OTR Mar 05, 2021 09:44
--- NOTE | 2021-03-05 09:50 | Physical Therapy Daily Note ---
PT Daily Note-Current Subjective Patient agrees to PT. Pain Numeric Pain Scale: 6 Location Body Site: Pelvic Pain Description: Acute Mental Status Patient Orientation: Normal For Age Transfers SCALE: Activities may be completed with or without assistive devices. 5-Qmvxoatqru-nmiftic completes the activity by him/herself with no assistance from a helper. 5-Set-up or Clean-up Assistance-helper sets up or cleans up; patient completes activity. [place] assists only prior to or following the activity. 4-Supervision or Touching Assistance-helper provides verbal cues and/or touching/steadying and/or contact guard assistance as patient completes activity. Assistance may be provided throughout the activity or intermittently. 3-Partial/Moderate Assistance-helper does LESS THAN HALF the effort. [place] lifts, holds or supports trunk or limbs, but provides less than half the effort. 2-Substantial/Maximal Assistance-helper does MORE THAN HALF the effort. [place] lifts or holds trunk or limbs and provides more than half the effort. 2-Riwirdyng-ghcssl does ALL the effort. Patient does none of the effort to complete the activity. Or, the assistance of 2 or more helpers is required for the patient to complete the activity. If activity was not attempted, code reason: 7-Patient Refused. 9-Not Applicable-not attempted and the patient did not perform the activity before the current illness, exacerbation or injury. 10-Not Attempted due to Environmental Limitations-(lack of equipment, weather restraints, etc.). 88-Not Attempted due to Medical Conditions or Safety Concerns. Sit to Stand (QC): 4 (SBA) Weight Bearing Right Lower Extremity: Right Weight Bearing/Tolerated Left Lower Extremity: Left Weight Bearing/Tolerated Gait Training Does the Patient Walk?: Yes Distance: 200' Walk 10 feet (QC): 4 (SBA) Walk 50 ft with 2 Turns(QC): 4 (SBA) Walk 150 ft (QC): 4 (SBA) Gait Assistive Device: FWW slow, steady, functional gait sequence Exercises Seated Therapy Exercises: Ankle pumps, Long arc quads Seated Reps: 15 Assessment Patient remains up in recliner with needs met. PT Fci Goals Fci Goals PT Fci Goals Time Frame: Mar 13, 2021 Roll Left & Right (QC): 6 Sit to Lying (QC): 6 Lying-Sitting on Side/Bed(QC): 6 Sit to Stand (QC): 6 Chair/Fci-ss-Gbuym Xfer(QC): 6 Toilet Transfer (QC): 6 Does the Patient Walk: Yes Walk 10 feet (QC): 6 Walk 50ft with 2 Turns (QC): 6 Walk 150 ft (QC): 6 PT Plan Treatment/Plan Treatment Plan: Continue Plan of Care Treatment Plan: Bed Mobility, Education, Functional Activity Chuyita, Functional Strength, Gait, Safety, Therapeutic Exercise, Transfers Treatment Duration: Mar 13, 2021 Frequency: 6 times per week Estimated Hrs Per Day: .25 hour per day Patient and/or Family Agrees t: Yes Time/GCodes Time In: 855 Time Out: 906 Total Billed Treatment Time: 11 Total Billed Treatment 1 visit FA 11 min RYLAND APONTE PT Mar 05, 2021 09:50
[2021-03-05] MEDS: GABAPENTIN 300 MG (NEURONTIN) CAP PO SCH ×3 (12:40→20:09)
[2021-03-05 12:45] VITALS: BP 142/71
--- NOTE | 2021-03-05 13:01 | Diagnostic Imaging Report ---
DATE: 03/05/2021 12:46 PM REASON FOR EXAM: Malignancy, fractures COMPARISON: Pelvis radiographs from 02/17/2021 TECHNIQUE: Tc-99m MDP 27.1 mCi IV FINDINGS: The entire skeleton was imaged in anterior and posterior views with the moving gamma camera. There is normal distribution of tracer throughout the imaged axial and appendicular skeleton. There is focal radiotracer activity at the medial superior and inferior right pubic rami and the inferior left pubic ramus. There is also radiotracer activity at the lateral left superior pubic ramus. There is increased radiotracer activity in the sacrum bilaterally, right greater than left, may represent insufficiency fractures. Faint linear radiotracer activity is seen at the L1 vertebral level. Scintigraphic findings typical of degenerative change are seen within the right knee and bilateral feet. There is photopenia at the left knee which may be from a joint replacement. There is photopenia at the right hip consistent with a joint replacement. Physiologic uptake is seen within the kidneys and urinary bladder. No abnormal soft tissue uptake is seen. IMPRESSION: 1. Abnormal radiotracer activity in the superior and inferior pubic rami bilaterally, as well as in the sacrum, right greater than left, consistent with fractures. 2. Faint linear radiotracer activity at L1. This could be due to degenerative change however if there is pain localizing to this level, a compression fracture is not excluded and MRI would be recommended. Dictated by: Dictated on workstation # [id number]
[2021-03-05 16:05] VITALS: BP 136/84
[2021-03-05 19:47] VITALS: BP 120/57
[2021-03-05] MEDS: AMITRIPTYLINE 10 MG (ELAVIL) TAB PO SCH (20:09)
[2021-03-05] MEDS: LATANOPROST 0.005% (XALATAN) OPHTH SOLN 2.5 ML OU SCH (20:09)
[2021-03-05] MEDS: SIMvastatin 40 MG (ZOCOR) TAB PO SCH (20:09)
[2021-03-06] VITALS (7 sets, daily range): BP systolic 99–140; BP diastolic 52–91
[2021-03-06] MEDS: LEVOTHYROXINE 50 MCG (LEVOTHROID) TAB PO SCH (05:35)
[2021-03-06 06:01] LABS: POTASSIUM 5.1 MMOL/L (3.6-5.0)
[2021-03-06 06:02] LABS: CALCIUM 9.1 MG/DL (8.5-10.1)
[2021-03-06 06:06] LABS: CREATININE SERUM 2.3 MG/DL (0.60-1.30)
[2021-03-06] MEDS: ASPIRIN E.C. 81 MG (ECOTRIN) TAB PO SCH ×2 (07:56→20:55)
[2021-03-06] MEDS: RIVAROXABAN 20 MG TABLET (XARELTO) PO SCH (07:56)
[2021-03-06] MEDS: PHENAZOPYRIDINE 100 MG (PYRIDIUM) TABLET PO SCH ×3 (07:57→18:29)
[2021-03-06] MEDS: lisINopril 20 MG (PRINIVIL) TABLET PO SCH (07:57)
--- NOTE | 2021-03-06 09:01 | Progress Note ---
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 PT HAS HX OF PELVIC FRACTURE WITH UNCONTROLLED PAIN AND NEED FOR IV WITH TRANSITION TO ORAL PAIN MEDICATION FOR MANAGEMENT OF SYMPTOMS. PER PT AND DR HERMAN, THE PLAN WILL BE TRANSITION TO A [facility] FOR REHAB ON DISCHARGE. TODAY THE PT STATES THAT SHE FEELS...... Review of Systems General: No Chills HEENT: No Head Aches Pulmonary: Dyspnea (on exertion about baseline) Cardiovascular: No: Chest Pain, Palpitations Gastrointestinal: No: Nausea, Vomiting Genitourinary: Dysuria Musculoskeletal: other (pelvic pain), back pain Neurological: Weakness; No: Confusion Objective Exam Vital Signs Vital Signs - First Documented 03/04/21 12:14 Temp 36.0 Pulse 79 Resp 19 B/P (MAP) 172/75 (107) Pulse Ox 98 O2 Delivery Room Air Capillary Refill : General Appearance: No Apparent Distress, WD/WN HEENT: PERRL/EOMI, Pharynx Normal Neck: Full Range of Motion, Non Tender, Supple Respiratory: Chest Non Tender, Lungs Clear, Normal Breath Sounds, No Accessory Muscle Use, No Respiratory Distress Cardiovascular: Regular Rate, Rhythm Gastrointestinal: Normal Bowel Sounds, Non Tender, Soft Rectal: Deferred Extremity: Non Tender, Pedal Edema (up to knee) Neurologic/Psychiatric: Alert, Oriented x3, Normal Mood/Affect Skin: Normal Color, Warm/Dry Results Lab Laboratory Tests 03/06/21 05:30: Sodium Level 143, Potassium Level 5.1H, Chloride Level 109H, Carbon Dioxide Level 22, Anion Gap 12, Blood Urea Nitrogen 45H, Creatinine 2.30H, Estimat Glomerular Filtration Rate 20, BUN/Creatinine Ratio 20, Glucose Level 102, Calcium Level 9.1 Microbiology 03/05/21 Urine Culture - Preliminary, Resulted Klebsiella pneumoniae Assessment/Plan Assessment/Plan Admission Status: Inpatient Order (span 2 midnights) Problems: (1) Iron deficiency anemia Qualifiers: Qualified Codes: D50.0 - Iron deficiency anemia secondary to blood loss (chronic) (2) Acute on chronic kidney failure Qualifiers: (3) Hypothyroid Qualifiers: Qualified Codes: E03.9 - Hypothyroidism, unspecified (4) Pelvic fracture Qualifiers: Qualified Codes: S32.82XA - Multiple fractures of pelvis without disruption of pelvic ring, initial encounter for closed fracture Assessment & Plan: CONTINUE WITH CURRENT MANAGEMENT - PT TO BE TAKEN DOWN TO INPT REHAB UNIT TO DO A TRIAL ON STAIRS TO SEE HOW SHE IS ABLE TO MANAGE STAIRS. 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
[2021-03-06] MEDS: GABAPENTIN 300 MG (NEURONTIN) CAP PO SCH ×3 (12:32→20:55)
--- NOTE | 2021-03-06 13:36 | Physical Therapy Daily Note ---
PT Daily Note-Current Subjective Pt was initially worried about ascending/descending stairs. Pain Numeric Pain Scale: 2 Location: Bone Location Body Site: Pelvic Pain Description: Ache, Dull Mental Status Patient Orientation: Person, Place, Time, Situation Transfers SCALE: Activities may be completed with or without assistive devices. 3-Datcavvyoi-upgogxr completes the activity by him/herself with no assistance f rom a helper. 5-Set-up or Clean-up Assistance-helper sets up or cleans up; patient completes activity. [place] assists only prior to or following the activity. 4-Supervision or Touching Assistance-helper provides verbal cues and/or touching/steadying and/or contact guard assistance as patient completes activity. Assistance may be provided throughout the activity or intermittently. 3-Partial/Moderate Assistance-helper does LESS THAN HALF the effort. [place] lifts, holds or supports trunk or limbs, but provides less than half the effort. 2-Substantial/Maximal Assistance-helper does MORE THAN HALF the effort. [place] lifts or holds trunk or limbs and provides more than half the effort. 7-Gqmbxgczk-qyjzzb does ALL the effort. Patient does none of the effort to complete the activity. Or, the assistance of 2 or more helpers is required for the patient to complete the activity. If activity was not attempted, code reason: 7-Patient Refused. 9-Not Applicable-not attempted and the patient did not perform the activity before the current illness, exacerbation or injury. 10-Not Attempted due to Environmental Limitations-(lack of equipment, weather restraints, etc.). 88-Not Attempted due to Medical Conditions or Safety Concerns. Sit to Stand (QC): 5 Chair/Nav-il-Kweic Xfer(QC): 5 Weight Bearing Right Lower Extremity: Right Weight Bearing/Tolerated Left Lower Extremity: Left Weight Bearing/Tolerated Gait Training Does the Patient Walk?: Yes Distance: 100ft Walk 10 feet (QC): 5 Walk 50 ft with 2 Turns(QC): 5 Gait Assistive Device: FWW Wheelchair Training Does the Pt Use a Wheelchair?: No Stair Training Stair Training: Handrails/: 2 handrails #of Steps: 4 4 Steps (QC): 5 Stairs: Pattern: Step to Pt was initially fearful of pelvic pain, but was able to ascend and descend with a maximum pelvic pain rating of 2/10. Good safety and stability throughout gait and step training. Assessment Current Status: Good Progress Pt was safe and competent when ambulating and performing stair training. She discussed whether she should go to the [facility] for skilled therapy and she agreed that would be a hill idea to help improve her strength and activity tolerance prior to returning home. 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 Inspector Goals Detention Goals PT Hardness Inspector Goals Time Frame: Mar 13, 2021 Roll Left & Right (QC): 6 Sit to Lying (QC): 6 Lying-Sitting on Side/Bed(QC): 6 Sit to Stand (QC): 6 Chair/Uqi-wd-Eywdc Xfer(QC): 6 Toilet Transfer (QC): 6 Does the Patient Walk: Yes Walk 10 feet (QC): 6 Walk 50ft with 2 Turns (QC): 6 Walk 150 ft (QC): 6 PT Plan Treatment/Plan Treatment Plan: Continue Plan of Care Treatment Plan: Bed Mobility, Education, Functional Activity Chuyita, Functional Strength, Gait, Safety, Therapeutic Exercise, Transfers Treatment Duration: Mar 13, 2021 Frequency: 6 times per week Estimated Hrs Per Day: .25 hour per day Patient and/or Family Agrees t: Yes Time/GCodes Time In: 1135 Time Out: 1200 Total Billed Treatment Time: 25 Total Billed Treatment 1, gt x2 (25) VERONIQUE ROWE PT Mar 06, 2021 13:36
[2021-03-06] MEDS: SIMvastatin 40 MG (ZOCOR) TAB PO SCH (20:55)
[2021-03-06] MEDS: AMITRIPTYLINE 10 MG (ELAVIL) TAB PO SCH (20:55)
[2021-03-06] MEDS: LATANOPROST 0.005% (XALATAN) OPHTH SOLN 2.5 ML OU SCH (20:56)
[2021-03-06] MEDS ORDERED: NS (IVPB) 250 ML IV ONE (22:15)
[2021-03-06] MEDS ORDERED: NS 100 ML (IVPB) BAG IV SCH (22:15)
[2021-03-06] MEDS ORDERED: SUCRALFATE 1 GM (CARAFATE) TAB PO PRN (23:45)
[2021-03-06] MEDS ORDERED: ONDANSETRON 4 MG/2 ML (SDV) Z0FRAN IVP PRN (23:45)
[2021-03-06] MEDS ORDERED: PANTOPRAZOLE 40 MG (PROTONIX) VIAL IV ONE (23:45)
[2021-03-07] MEDS: NS IV 1000 ML 1,000 ML IV SCH ×3 (00:13→20:18)
[2021-03-07 04:08] VITALS: BP 109/54
[2021-03-07] MEDS: LEVOTHYROXINE 50 MCG (LEVOTHROID) TAB PO SCH (06:48)
[2021-03-07 08:16] VITALS: BP 96/50
[2021-03-07] MEDS: PANTOPRAZOLE 40 MG (PROTONIX) VIAL IV SCH ×2 (08:41→20:18)
[2021-03-07] MEDS: LEVOFLOXACIN 250 MG/D5W 50 ML (PRE-MIX) IV SCH (08:42)
[2021-03-07] MEDS: RIVAROXABAN 20 MG TABLET (XARELTO) PO SCH (08:42)
[2021-03-07] MEDS: ASPIRIN E.C. 81 MG (ECOTRIN) TAB PO SCH ×2 (08:42→20:18)
[2021-03-07] MEDS: lisINopril 20 MG (PRINIVIL) TABLET PO SCH (08:42)
--- NOTE | 2021-03-07 09:22 | Progress Note ---
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 PT HAS HX OF PELVIC FRACTURE WITH UNCONTROLLED PAIN AND NEED FOR IV WITH TRANSITION TO ORAL PAIN MEDICATION FOR MANAGEMENT OF SYMPTOMS. PER PT AND DR HERMAN, THE PLAN WILL BE TRANSITION TO A [facility] FOR REHAB ON DISCHARGE. OVERNIGHT SHE HAD AN EPISODE OF NAUSEA WITH [facility]. THIS MORNING SHE IS FEELING BETTER AND NOW IS IN AGREEMENT TO GO TO THE [facility] TOMORROW ON DISCHARGE (SHE WAS WANTING TO GO HOME YESTERDAY WHEN WE TALKED). Review of Systems General: No Chills HEENT: No Head Aches Pulmonary: Dyspnea (on exertion about baseline) Cardiovascular: No: Chest Pain, Palpitations Gastrointestinal: No: Nausea, Vomiting Genitourinary: Dysuria Musculoskeletal: other (PELVIC PAIN, PAIN WITH AMBULATION), back pain Neurological: Weakness; No: Confusion Objective Exam Vital Signs Vital Signs - First Documented 03/04/21 12:14 Temp 36.0 Pulse 79 Resp 19 B/P (MAP) 172/75 (107) Pulse Ox 98 O2 Delivery Room Air Capillary Refill : General Appearance: No Apparent Distress, WD/WN HEENT: PERRL/EOMI, Pharynx Normal Neck: Full Range of Motion, Non Tender, Supple Respiratory: Chest Non Tender, Lungs Clear, Normal Breath Sounds, No Accessory Muscle Use, No Respiratory Distress Cardiovascular: Regular Rate, Rhythm Gastrointestinal: Normal Bowel Sounds, Non Tender, Soft Rectal: Deferred Extremity: Non Tender, Pedal Edema (up to knee) Neurologic/Psychiatric: Alert, Oriented x3, Normal Mood/Affect Skin: Normal Color, Warm/Dry Results Lab Microbiology 03/05/21 Urine Culture - Final, Complete Klebsiella pneumoniae Assessment/Plan Assessment/Plan Problems: (1) Iron deficiency anemia Qualifiers: Qualified Codes: D50.0 - Iron deficiency anemia secondary to blood loss (chronic) Assessment & Plan: STABLE, CONTINUE CURRENT REGIMEN (2) Acute on chronic kidney failure Qualifiers: (3) Hypothyroid Qualifiers: Qualified Codes: E03.9 - Hypothyroidism, unspecified (4) Pelvic fracture Qualifiers: Qualified Codes: S32.82XA - Multiple fractures of pelvis without disruption of pelvic ring, initial encounter for closed fracture Assessment & Plan: CONTINUE WITH CURRENT MANAGEMENT - PT TAKEN DOWN TO INPT REHAB - WAS ABLE TO AMBULATE ON STAIRS WITH ASSISTANCE. PT IN AGREEMENT TO GO TO [facility] ON DISCHARGE. 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
[2021-03-07] MEDS ORDERED: FENTANYL PATCH REMOVAL TP SCH (11:00)
[2021-03-07 11:56] VITALS: BP_SYST 125; BP_DIAS 50; BP_DIAS 55
[2021-03-07] MEDS: GABAPENTIN 300 MG (NEURONTIN) CAP PO SCH ×3 (12:25→20:18)
[2021-03-07] MEDS: fentaNYL PATCH 50 MCG (DURAGESIC) TD SCH (12:25)
[2021-03-07 15:55] VITALS: BP 102/54
[2021-03-07 20:00] VITALS: BP 112/54
[2021-03-07] MEDS: AMITRIPTYLINE 10 MG (ELAVIL) TAB PO SCH (20:18)
[2021-03-07] MEDS: SIMvastatin 40 MG (ZOCOR) TAB PO SCH (20:18)
[2021-03-07] MEDS: LATANOPROST 0.005% (XALATAN) OPHTH SOLN 2.5 ML OU SCH (20:19)
[2021-03-07 23:44] VITALS: BP 120/54
[2021-03-08] MEDS: NS IV 1000 ML 1,000 ML IV SCH ×2 (02:51→05:11)
[2021-03-08 03:04] VITALS: BP 113/52
[2021-03-08] MEDS: LEVOTHYROXINE 50 MCG (LEVOTHROID) TAB PO SCH (05:11)
[2021-03-08 08:00] VITALS: BP 132/52
[2021-03-08] MEDS ORDERED: PANTOPRAZOLE 40 MG (PROTONIX) TAB PO SCH (09:00)
[2021-03-08] MEDS: RIVAROXABAN 20 MG TABLET (XARELTO) PO SCH (09:08)
[2021-03-08] MEDS: lisINopril 20 MG (PRINIVIL) TABLET PO SCH (09:08)
[2021-03-08] MEDS: LEVOFLOXACIN 250 MG/D5W 50 ML (PRE-MIX) IV SCH (09:08)
[2021-03-08] MEDS: ASPIRIN E.C. 81 MG (ECOTRIN) TAB PO SCH (09:08)
--- NOTE | 2021-03-08 10:12 | Physical Therapy Daily Note ---
PT Daily Note-Current Subjective Patient agrees to PT. Pain Numeric Pain Scale: 5-Moderate Pain Location Body Site: Pelvic Pain Description: Acute Mental Status Patient Orientation: Normal For Age Transfers SCALE: Activities may be completed with or without assistive devices. 7-Tykrixvwxj-hjsadkj completes the activity by him/herself with no assistance from a helper. 5-Set-up or Clean-up Assistance-helper sets up or cleans up; patient completes activity. [place] assists only prior to or following the activity. 4-Supervision or Touching Assistance-helper provides verbal cues and/or touching/steadying and/or contact guard assistance as patient completes activity. Assistance may be provided throughout the activity or intermittently. 3-Partial/Moderate Assistance-helper does LESS THAN HALF the effort. [place] lifts, holds or supports trunk or limbs, but provides less than half the effort. 2-Substantial/Maximal Assistance-helper does MORE THAN HALF the effort. [place] lifts or holds trunk or limbs and provides more than half the effort. 6-Wgytyebda-lhbkoi does ALL the effort. Patient does none of the effort to complete the activity. Or, the assistance of 2 or more helpers is required for the patient to complete the activity. If activity was not attempted, code reason: 7-Patient Refused. 9-Not Applicable-not attempted and the patient did not perform the activity before the current illness, exacerbation or injury. 10-Not Attempted due to Environmental Limitations-(lack of equipment, weather restraints, etc.). 88-Not Attempted due to Medical Conditions or Safety Concerns. Sit to Stand (QC): 4 (SBA) Weight Bearing Right Lower Extremity: Right Weight Bearing/Tolerated Left Lower Extremity: Left Weight Bearing/Tolerated Gait Training Does the Patient Walk?: Yes Distance: 150' Walk 10 feet (QC): 4 Walk 50 ft with 2 Turns(QC): 4 Walk 150 ft (QC): 4 Gait Assistive Device: FWW safe and functional with no deviation Exercises Seated Therapy Exercises: Ankle pumps, Long arc quads Seated Reps: 15 Assessment Patient remains up in recliner with needs met. Increase activity as tolerated by patient. 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 Piano Builder Goals PT Long-Term Goals Time Frame: Mar 13, 2021 Roll Left & Right (QC): 6 Sit to Lying (QC): 6 Lying-Sitting on Side/Bed(QC): 6 Sit to Stand (QC): 6 Chair/Gep-yj-Uaxjs Xfer(QC): 6 Toilet Transfer (QC): 6 Does the Patient Walk: Yes Walk 10 feet (QC): 6 Walk 50ft with 2 Turns (QC): 6 Walk 150 ft (QC): 6 PT Plan Treatment/Plan Treatment Plan: Continue Plan of Care Treatment Plan: Bed Mobility, Education, Functional Activity Chuyita, Functional Strength, Gait, Safety, Therapeutic Exercise, Transfers Treatment Duration: Mar 13, 2021 Frequency: 6 times per week Estimated Hrs Per Day: .25 hour per day Patient and/or Family Agrees t: Yes Time/GCodes Time In: 946 Time Out: 956 Total Billed Treatment Time: 10 Total Billed Treatment 1 visit FA 10 min RYLAND APONTE PT Mar 08, 2021 10:12
[2021-03-08] MEDS: GABAPENTIN 300 MG (NEURONTIN) CAP PO SCH (11:37)
[2021-03-08 12:48] VITALS: BP 161/102
[2021-03-08] MEDS ORDERED: RIVA15TA2 PO (13:20)
[2021-03-08] MEDS ORDERED: CEFD300C3 PO (13:20)
[2021-03-08] MEDS ORDERED: FENT1PAT9 TD (13:20)
--- NOTE | 2021-03-08 13:22 | Discharge Inst-Skilled Nursing ---
Discharge Inst-Skilled NF Reconcile Patient Problems Problems Reviewed?: Yes Patient Instructions Patient Problems: pelvic fracture pain klebsiella urinary tract infection hypothyroidism Patient Instructions: SNU at [facility] Consult/Follow Up/Orders Skilled NF Admit to: [facility] Certification (SNF) I certify that SNF services are required to be given on an inpatient basis because of the above named patient's need for care home care on a continuing basis for the conditions(s) for which he/she was receiving inpatient hospital services prior to his/her transfer to the SNF. Snf Facility Order: Nursing Services, Lamps Tester And Inspector-Evaluate & Treat, Physical Therapy-Evaluate & Treat Oxygen Delivery Method: Room Air Discharge Diet: Low Sodium Diet Daily Activity as Tolerated: Yes Resuscitation Status: Full Code New & Resume Previous Orders Cody Herman Mar 08, 2021 13:21 CODY HERMAN MD Mar 08, 2021 13:22
[2021-03-08] MEDS ORDERED: OXYC5TAB PO (13:23)
--- NOTE | 2021-03-08 13:24 | Discharge Summary ---
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 (8) Atrial fibrillation Qualifiers: Qualified Codes: I48.11 - Longstanding persistent atrial fibrillation (9) Hypertension Qualifiers: Qualified Codes: I10 - Essential (primary) hypertension (10) UTI (urinary tract infection) Qualifiers: Qualified Codes: N30.00 - Acute cystitis without hematuria Hospital Course Date of Admission: Mar 04, 2021 at 16:50 Admission Diagnosis : Family Physician/Provider: Cody Herman MD Date of Discharge: 03/08/21 Discharge Diagnosis: [ ] Hospital Course: [ ] Labs and Pending Lab Test: Microbiology 03/05/21 Urine Culture - Final, Complete Klebsiella pneumoniae Home Meds Active Cefdinir 300 Mg Capsule 300 Mg PO BID 5 Days Fentanyl Patch 50 MCG (Fentanyl) 1 Each Patch.td72 50 Mcg TD Q72H Xarelto Tablet (Rivaroxaban) 15 Mg Tablet 15 Mg PO DAILY@0800 Reported Xarelto (Rivaroxaban) 20 Mg Tablet 20 Mg PO DAILY Bumetanide 1 Mg Tablet 1 Mg PO Q72H PRN Levothyroxine Sodium 50 Mcg Tablet 50 Mcg PO DAILY Neurontin (Gabapentin) 300 Mg Capsule 300 Mg PO 1200,1500,2000 Xalatan (Latanoprost) 2.5 Ml Drops 1 Drops OU HS Hydrocodone-Acetamin 5-325 mg (Hydrocodone/Acetaminophen) 1 Each Tablet 1-2 Tab PO Q8H PRN Oxycodone HCl 5 Mg Tablet 5 Mg PO Q4H PRN Lisinopril 20 Mg Tablet 40 Mg PO DAILY TAKES 2 (20MG) TABS Metoprolol Succinate 25 Mg Tab.er.24h 25 Mg PO 1500 Aspirin EC (Aspirin) 81 Mg Tablet.dr 81 Mg PO BID Amitriptyline HCl 10 Mg Tablet 10 Mg PO HS Simvastatin 40 Mg Tablet 40 Mg PO HS Discharge Instructions Discharge Diet: Low Sodium Diet Discharge Physical Examination Vital Signs Vital Signs Date Time Temp Pulse Resp B/P (MAP) Pulse Ox O2 Delivery O2 Flow Rate FiO2 03/08/21 12:48 36.6 69 16 161/102 (121) 95 Room Air Allergies: Coded Allergies: Sulfa (Sulfonamide Antibiotics) (Verified Allergy, Mild, ITCHING/SWOLLEN HANDS, 04/06/20) Discharge Summary Date of Admission Mar 04, 2021 at 16:50 Date of Discharge February Discharge Diagnosis (1) Iron deficiency anemia Assessment & Plan: STABLE, CONTINUE CURRENT REGIMEN Qualifiers: Qualified Codes: D50.0 - Iron deficiency anemia secondary to blood loss (chronic) (2) Acute on chronic kidney failure Status: Acute Qualifiers: (3) Hypothyroid Status: Chronic Qualifiers: Qualified Codes: E03.9 - Hypothyroidism, unspecified (4) Pelvic fracture Assessment & Plan: CONTINUE WITH CURRENT MANAGEMENT - PT TAKEN DOWN TO IN REHAB - WAS ABLE TO AMBULATE ON STAIRS WITH ASSISTANCE. PT IN AGREEMENT TO GO TO [facility] ON DISCHARGE. 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
[2021-03-09] MEDS ORDERED: RIVAROXABAN 15 MG TABLET (XARELTO) PO SCH (08:00)
== END 2021-03-08 16:08 | DRG 536 ==
LOC: 4TH 12:03 → UNDOADMOB 12:03 → 4TH 16:00 → OBSVTOIN 16:50 → INTOOBSV 16:50 → EDSTATUS 17:04 → UNDODISIN 03-08 16:08
PROVIDERS: ADMIT Family Medicine; ATTEND Family Medicine
DX: S32.82XA Multiple fractures of pelvis without disruption of pelvic ring, initial encounter for closed fracture (principal); N17.9 Acute kidney failure, unspecified; I50.32 Chronic diastolic (congestive) heart failure; I48.11 Longstanding persistent atrial fibrillation; I13.0 Hypertensive heart and chronic kidney disease with heart failure and stage 1 through stage 4 chronic kidney disease, or unspecified chronic kidney disease; N39.0 Urinary tract infection, site not specified; N18.9 Chronic kidney disease, unspecified; E03.9 Hypothyroidism, unspecified; D50.0 Iron deficiency anemia secondary to blood loss (chronic); G62.9 Polyneuropathy, unspecified; K21.9 Gastro-esophageal reflux disease without esophagitis; K57.90 Diverticulosis of intestine, part unspecified, without perforation or abscess without bleeding; G89.29 Other chronic pain; M54.9 Dorsalgia, unspecified; X58.XXXA Exposure to other specified factors, initial encounter; Z79.82 Long term (current) use of aspirin; Z79.899 Other long term (current) drug therapy; Z87.891 Personal history of nicotine dependence
CPT/HCPCS: 36415; 78306; 80048; 81000; 85025; 87077; 87088; 87186

== ENCOUNTER 2021-03-14 18:45 | Emergency (ER) | payer MEDICARE, OTHER ==
[~2021-03-14] VITALS: Ht 157 cm; Wt 97.0 kg
[~2021-03-14 18:45] MED LIST changes: +CEFD300C3 PO; +FENT1PAT9 TD; +LATA2.5D19 OU; +LEVO50TA6 PO; +LISI20TA26 PO; +OXYC5TAB PO; +RIVA15TA2 PO; +RIVA20TA PO
[2021-03-14] MEDS ORDERED: NS IV 500 ML 500 ML IV ONE (19:00)
--- NOTE | 2021-03-14 19:03 | ED General ---
General Stated Complaint: CONFUSION Source of Information: Patient Exam Limitations: Other (Acute hypoactive delirium) History of Present Illness Date Seen by Provider: Mar 14, 2021 Time Seen by Provider: 18:44 Initial Comments Patient to ER from [facility] with chief complaint of 1 to 3days decreased activity and confusion. She is typically alert oriented at baseline according to staff and family. Patient is aware of the year, her name but not why she is here or what is been going on. She knows she was in the hospital last week but not what for. She was being treated and discharged 1 week ago from [facility] for a UTI. She denies any dysuria fever chills cough shortness of air or increased swelling in her feet or abdomen. She is not having any chest pain. Her vitals were stable per EMS and blood sugar is 114. She is not diabetic. No neurologic symptoms per staff or EMS. She does have a history of atrial fibrillation on Xarelto and known to Dr. Cody Herman. History of diverticulosis with previous colostomy status post takedown. Prior to this last hospitalization she was staying with her children. She is at [facility] for long-term care and physical therapy. Hypothyroidism, history of pelvic fracture. Urine culture grew out Klebsiella resistant to ampicillin. She has had her Covid vaccinations. No known sick contacts. Fentanyl patch for chronic back pain. Allergies and Home Medications Allergies Coded Allergies: Sulfa (Sulfonamide Antibiotics) (Verified Allergy, Mild, ITCHING/SWOLLEN HANDS, 04/06/20) Home Medications Amitriptyline HCl 10 Mg Tablet, 10 MG PO HS, (Reported) Aspirin 81 Mg Tablet.dr, 81 MG PO BID, (Reported) Bumetanide 1 Mg Tablet, 1 MG PO Q72H PRN for FLUID RETENTION, (Reported) Cefdinir 300 Mg Capsule, 300 MG PO BID Prescribed by: CODY HERMAN on 03/08/21 1320 Fentanyl 1 Each Patch.td72, 50 MCG TD Q72H Prescribed by: CODY HERMAN on 03/08/21 1320 Gabapentin 300 Mg Capsule, 300 MG PO 1200,1500,2000, (Reported) Hydrocodone/Acetaminophen 1 Each Tablet, 1-2 TAB PO Q8H PRN for PAIN-MODERATE (5-7), (Reported) Latanoprost 2.5 Ml Drops, 1 DROPS OU HS, (Reported) Levothyroxine Sodium 50 Mcg Tablet, 50 MCG PO DAILY, (Reported) Lisinopril 20 Mg Tablet, 40 MG PO DAILY, (Reported) TAKES 2 (20MG) TABS Metoprolol Succinate 25 Mg Tab.er.24h, 25 MG PO 1500, (Reported) Ondansetron 4 Mg Tab.rapdis, 4 MG PO Q6H PRN for NAUSEA/VOMITING Prescribed by: CATRACHITA BYRD on 03/14/21 2252 Last Action: New Order Oxycodone HCl 5 Mg Tablet, 5 MG PO Q4H PRN for PAIN-SEVERE (8-10) Prescribed by: CODY HERMAN on 03/08/21 1323 Rivaroxaban 15 Mg Tablet, 15 MG PO DAILY@0800 Prescribed by: CODY HERMAN on 03/08/21 1320 Simvastatin 40 Mg Tablet, 40 MG PO HS, (Reported) Patient Home Medication List Home Medication List Reviewed: Yes Review of Systems Review of Systems Constitutional: see HPI (Limited review of systems secondary to patient being a poor historian at this time.); No chills, No fever, No malaise EENTM: No ear pain, No vision loss, No dental problems, No mouth pain, No throat pain Respiratory: No cough, No short of breath, No wheezing Cardiovascular: No chest pain; edema; No palpitations Gastrointestinal: No abdominal pain, No constipation, No diarrhea, No nausea Genitourinary: No discharge, No dysuria, No hematuria Musculoskeletal: back pain (Chronic); No joint pain All Other Systems Reviewed Negative Unless Noted: Yes Past [id number]-Kyttcr-[id number] Hx Patient Social History Tobacco Use?: No Use of E-Cig and/or Vaping dev: No Substance use?: No Alcohol Use?: No Immunizations Up To Date Tetanus Booster (TDap): Unknown Seasonal Allergies Seasonal Allergies: No Past Medical History Surgeries: Yes (COLOSTOMY) Appendectomy, Bowel Surgery, Hysterectomy, Orthopedic Respiratory: No Currently Using CPAP: No Currently Using BIPAP: No Cardiac: Yes Hypertension Neurological: No Neuropathy Sexually Transmitted Disease: No HIV/AIDS: No Genitourinary: No Bladder Infection, UTI-Chronic Gastrointestinal: Yes (PERFORATED BOWEL/BOWEL RESECTION/COLOSTOMY) Gastroesophageal Reflux, Diverticulosis Musculoskeletal: Yes Chronic Back Pain Endocrine: Yes Hypothyroidsim HEENT: Yes (READING GLASSES) Loss of Vision: Denies Hearing Impairment: Denies Cancer: Yes Uterine Did You Recieve Any Treatments: Yes What Type of Treatment Did You: Surgical Intervention Psychosocial: No Integumentary: Yes Recent Skin Changes Blood Disorders: No Adverse Reaction/Blood Tranf: No (HAS HAD BLOOD WITH NO REACTION) Family Medical History Cancer, Diabetes, Hypertension Physical Exam Vital Signs Vital Signs - First Documented 03/14/21 18:50 Temp 36.3 Pulse 80 Resp 18 B/P (MAP) 188/84 (118) Pulse Ox 94 O2 Delivery Room Air Capillary Refill : Height, Weight, BMI Height: 5'2.00" Weight: 200lbs. 0.0oz. [id number]; 42.59 BMI Method: General Appearance: No Apparent Distress, Obese Eyes: Bilateral Eye Normal Inspection, Bilateral Eye PERRL, Bilateral Eye EOMI HEENT: PERRL/EOMI, TMs Normal, Normal ENT Inspection, Pharynx Normal, Moist Mucous Membranes Neck: Full Range of Motion, Normal Inspection Respiratory: Chest Non Tender, Lungs Clear, Normal Breath Sounds, No Accessory Muscle Use, No Respiratory Distress Cardiovascular: Regular Rate, Rhythm, No Edema, Normal Peripheral Pulses Gastrointestinal: Normal Bowel Sounds, Non Tender, Soft Extremity: Normal Capillary Refill, Normal Inspection, Normal Range of Motion, No Pedal Edema Neurologic/Psychiatric: Alert, Oriented x3 (Person and place as well as the year but not situation), No Motor/Sensory Deficits, Normal Mood/Affect, 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 Norm as Tested Skin: Normal Color, Warm/Dry Procedures/Interventions Date of ETT Placement: May 30, 2019 Progress/Results/Core Measures Suspected Sepsis SIRS Temperature: Pulse: Respiratory Rate: Laboratory Tests 03/14/21 18:59: White Blood Count 9.2 Blood Pressure / Mean: Laboratory Tests 03/14/21 18:59: Creatinine 2.09H, Platelet Count 269, Total Bilirubin 0.2 Results/Orders Lab Results Laboratory Tests Test 03/14/21 18:59 03/14/21 19:05 Range/Units White Blood Count 9.2 4.3-11.0 10^3/uL Red Blood Count 3.10 L 3.80-5.11 10^6/uL Hemoglobin 8.6 L 11.5-16.0 g/dL Hematocrit 28 L 35-52 % Mean Corpuscular Volume 91 80-99 fL Mean Corpuscular Hemoglobin 28 25-34 pg Mean Corpuscular Hemoglobin Concent 31 L 32-36 g/dL Red Cell Distribution Width 16.1 H 10.0-14.5 % Platelet Count 269 130-400 10^3/uL Mean Platelet Volume 11.6 9.0-12.2 fL Immature Granulocyte % (Auto) 1 % Neutrophils (%) (Auto) 44 42-75 % Lymphocytes (%) (Auto) 38 12-44 % Monocytes (%) (Auto) 11 0-12 % Eosinophils (%) (Auto) 5 0-10 % Basophils (%) (Auto) 1 0-10 % Neutrophils # (Auto) 4.1 1.8-7.8 10^3/uL Lymphocytes # (Auto) 3.5 1.0-4.0 10^3/uL Monocytes # (Auto) 1.0 0.0-1.0 10^3/uL Eosinophils # (Auto) 0.5 H 0.0-0.3 10^3/uL Basophils # (Auto) 0.1 0.0-0.1 10^3/uL Immature Granulocyte # (Auto) 0.1 0.0-0.1 10^3/uL Sodium Level 141 135-145 MMOL/L Potassium Level 5.7 H 3.6-5.0 MMOL/L Chloride Level 113 H 98-107 MMOL/L Carbon Dioxide Level 18 L 21-32 MMOL/L Anion Gap 10 5-14 MMOL/L Blood Urea Nitrogen 57 H 7-18 MG/DL Creatinine 2.09 H 0.60-1.30 MG/DL Estimat Glomerular Filtration Rate 23 BUN/Creatinine Ratio 27 Glucose Level 108 H 70-105 MG/DL Calcium Level 9.2 8.5-10.1 MG/DL Corrected Calcium 9.7 8.5-10.1 MG/DL Total Bilirubin 0.2 0.1-1.0 MG/DL Aspartate Amino Transf (AST/SGOT) 15 5-34 U/L Alanine Aminotransferase (ALT/SGPT) 12 0-55 U/L Alkaline Phosphatase 161 H 40-136 U/L Troponin I < 0.028 <0.028 NG/ML C-Reactive Protein High Sensitivity 0.55 H 0.00-0.50 MG/DL B-Type Natriuretic Peptide 520.9 H <100.0 PG/ML Total Protein 6.0 L 6.4-8.2 GM/DL Albumin 3.4 3.2-4.5 GM/DL Urine Color YELLOW Urine Clarity CLEAR Urine pH 5.5 5-9 Urine Specific [place] 1.025 H 1.016-1.022 Urine Protein NEGATIVE NEGATIVE Urine Glucose (UA) NEGATIVE NEGATIVE Urine Ketones NEGATIVE NEGATIVE Urine Nitrite NEGATIVE NEGATIVE Urine Bilirubin NEGATIVE NEGATIVE Urine Urobilinogen 0.2 < = 1.0 MG/DL Urine Leukocyte Esterase NEGATIVE NEGATIVE Urine RBC (Auto) NEGATIVE NEGATIVE Urine RBC 0-2 /HPF Urine WBC NONE /HPF Urine Squamous Epithelial Cells 0-2 /HPF Urine Renal Epithelial Cells NONE /HPF Urine Crystals NONE /LPF Urine Bacteria NEGATIVE /HPF Urine Casts PRESENT /LPF Urine Hyaline Casts 2-5 H /LPF Urine Mucus NEGATIVE /LPF Urine Culture Indicated NO My Orders Orders - CATRACHITA BYRD Ed Iv/Invasive Line Start (03/14/21 18:54) Ns Iv 500 Ml (Sodium Chloride 0.9%) (03/14/21 19:00) Cbc With Automated Diff (03/14/21 18:54) Comprehensive Metabolic Panel (03/14/21 18:54) Hs C Reactive Protein (03/14/21 18:54) Chest 1 View, Ap/Pa Only (03/14/21 18:54) Ekg Tracing (03/14/21 18:54) Continuous Ekg Monitoring (03/14/21 18:54) BNP (03/14/21 18:54) Troponin I (03/14/21 18:54) Ua Culture If Indicated (03/14/21 19:05) Straight Cath For Spec.-Adult (03/14/21 19:05) Furosemide Injection (Lasix Injection) (03/14/21 21:30) Ondansetron Oral Dissolve Tab (Zofran (03/14/21 23:00) Ondansetron Oral Dissolve Tab (Zofran (03/14/21 22:52) Medications Given in ED Current Medications Medications Dose Ordered Sig/Bk Route Start Time Stop Time Status Last Admin Dose Admin Furosemide 40 mg ONCE ONCE IVP 03/14/21 21:30 03/14/21 21:31 DC 03/14/21 21:29 40 MG Ondansetron HCl 4 mg ONCE ONCE PO 03/14/21 23:00 03/14/21 22:54 DC 03/14/21 22:53 4 MG Sodium Chloride 500 ml @ 0 mls/hr Q0M ONCE IV 03/14/21 19:00 03/14/21 19:01 DC 03/14/21 19:09 0 MLS/HR Vital Signs/I&O 03/14/21 03/14/21 18:50 22:50 Temp 36.3 36.5 Pulse 80 75 Resp 18 18 B/P (MAP) 188/84 (118) 156/64 Pulse Ox 94 97 O2 Delivery Room Air Room Air 03/15/21 00:00 Intake Total 500 ml Balance 500 ml Capillary Refill : Progress Note #1: Time: 19:04 Progress Note Delirium either due to her opiates or infection. We will start with chest x-ray labs and get some urine by straight cath. She does have significant edema in her legs it is unclear whether this is worsening BNP and troponin looking for heart failure. Her lungs sound good and her oxygen saturations are 94% at room air on arrival. Chest x-ray. Progress Note #2: Time: 21:19 Progress Note On reexamination with the daughter in the room the patient is much more bright alert and involved. She can tell me what medicine she takes when she takes them when she takes them for and what is been going on for the past couple weeks. This is consistent with delirium and acute waxing and waning of confusion. We explained this to the patient and the daughter and that it would be best if she stayed in a more familiar environment for now. She does not meet any criteria at this time to need to be hospitalized. I suspect that the NSAIDs that they started this past week as well as the fentanyl patch may be contributing. The NSAIDs may be causing a little bit worsening of her creatinine and therefore her pulmonary congestion. I think we can stave off an acute fulminant heart failure from renal dysfunction by giving her a dose of Lasix and having labs rechecked t omorrow. Spoke to her primary care provider, Dr. Herman and he agrees to follow-up on the labs this week. Daughter and patient are in agreement with this plan. ECG Initial ECG Impression Date: Mar 14, 2021 Initial ECG Impression Time: 19:10 Initial ECG Rate: 84 Initial ECG Rhythm: Normal Sinus Initial ECG Intervals: Normal Initial ECG Impression: Normal Initial ECG Comparisson: No Previous ECG Available Comment Sinus rhythm with bigeminy. No clinically relevant ST changes. Diagnostic Imaging Diagonstic Imaging: Xray Plain Films/CT/US/NM/MRI: chest Comments [facility] [place], [place] NAME: ODALIS WATTS [facility] REC#: [id number] PT STATUS: REG ER : 1940 PHYSICIAN: CATRACHITA BYRD MD ADMIT DATE: 03/14/21/ER Signed Date of Exam:03/14/21 CHEST 1 VIEW, AP/PA ONLY INDICATION: Confusion. COMPARISON: 04/11/2020. EXAMINATION: Single view of the chest was obtained. FINDINGS: Cardiac enlargement with slight central vascular congestion. Basilar atelectasis is present. There is no large effusion. There is no pneumothorax. Osseous structures are stable. IMPRESSION: Cardiac enlargement with central vascular congestion and basilar atelectasis. Dictated by: Dictated on workstation # [id number] Dict: 03/14/211943 Trans: 03/14/212100 [facility] [id number] Interpreted by: SPARKLE MIRAMONTES Electronically signed by: SPARKLE MIRAMONTES 03/14/212100 Reviewed: Reviewed by Me Departure Impression Primary Impression: Delirium Additional Impressions: NSAIDs adverse reaction Qualified Codes: T39.395A - Adverse effect of other nonsteroidal anti- inflammatory drugs [NSAID], initial encounter Acute kidney injury superimposed on CKD Disposition: HOME, SELF-CARE Condition: Stable Departure-Patient Inst. Decision time for Depature: 21:29 Referrals: CODY HERMAN MD (PCP/Family) Primary Care Physician Patient Instructions: Acute Kidney Injury, Delirium (Confusion) Add. Discharge Instructions: We gave him Lasix tonight so get some help going to the bathroom for the next 6 to 8 hours. Plan to get labs drawn tomorrow and follow-up with Dr. Herman on these results. Return to the ER promptly if you are having shortness of air, chest pain or other worsening symptoms. Expect to have for the next few days some waxing and waning confusion. This is a part of delirium and should improve as we improve your underlying conditions. Stop taking the NSAID. You can talk to your primary care doctor about a topical NSAID later if you need it for your joints. Topical creams such as icy hot or Biofreeze are acceptable. Scripts Ondansetron (Ondansetron Odt) 4 Mg Tab.rapdis 4 MG PO Q6H PRN for NAUSEA/VOMITING, #8 TAB 0 Refills Prov: CATRACHITA BYRD 03/14/21 Copy Copies To 1: CODY HERMAN MD, TITUS J Mar 14, 2021 19:03
[2021-03-14 19:08] LABS: BASOPHILS # (AUTO) 0.1 10^3/uL (0.0-0.1); BASOPHILS % (AUTO) 1 % (0-10); EOSINOPHILS # (AUTO) 0.5 10^3/uL (0.0-0.3); EOSINOPHILS % (AUTO) 5 % (0-10); HEMATOCRIT 28 % (35-52); HEMOGLOBIN 8.6 g/dL (11.5-16.0); LYMPHOCYTES # (AUTO) 3.5 10^3/uL (1.0-4.0); LYMPHOCYTES % (AUTO) 38 % (12-44); MEAN CORPUSCULAR HEMOGLOBIN 28 pg (25-34); MEAN CORPUSCULAR HGB CONC 31 g/dL (32-36); MEAN CORPUSCULAR VOLUME 91 fL (80-99); MEAN PLATELET VOLUME 11.6 fL (9.0-12.2); MONOCYTES % (AUTO) 11 % (0-12); NEUTROPHILS # (AUTO) 4.1 10^3/uL (1.8-7.8); NEUTROPHILS % (AUTO) 44 % (42-75); PLATELET COUNT 269 10^3/uL (130-400); WHITE BLOOD COUNT 9.2 10^3/uL (4.3-11.0)
[2021-03-14 19:12] LABS: BILIRUBIN,URINE NEGATIVE (NEGATIVE); CLARITY,URINE CLEAR; COLOR,URINE YELLOW; GLUCOSE, URINE (UA) NEGATIVE (NEGATIVE); KETONES,URINE NEGATIVE (NEGATIVE); LEUKOCYTE ESTERASE ,URINE NEGATIVE (NEGATIVE); NITRITE,URINE NEGATIVE (NEGATIVE); PH,URINE 5.5 (5-9); PROTEIN,URINE NEGATIVE (NEGATIVE)
[2021-03-14 19:20] LABS: BACTERIA,URINE NEGATIVE /HPF; RBC,URINE 0-2 /HPF; SQUAMOUS EPITHELIAL CELL,UR 0-2 /HPF
[2021-03-14 19:48] LABS: ALANINE AMINOTRANSFERASE 12 U/L (0-55); ALBUMIN 3.4 GM/DL (3.2-4.5); ALKALINE PHOSPHATASE 161 U/L (40-136); BILIRUBIN,TOTAL 0.2 MG/DL (0.1-1.0); BUN/CREATININE RATIO 27; CALCIUM 9.2 MG/DL (8.5-10.1); CARBON DIOXIDE 18 MMOL/L (21-32); CHLORIDE 113 MMOL/L (98-107); CREATININE SERUM 2.09 MG/DL (0.60-1.30); GFR ESTIMATED 23; GLUCOSE 108 MG/DL (70-105); POTASSIUM 5.7 MMOL/L (3.6-5.0); SODIUM 141 MMOL/L (135-145)
--- NOTE | 2021-03-14 19:49 | Diagnostic Imaging Report ---
INDICATION: Confusion. COMPARISON: 04/11/2020. EXAMINATION: Single view of the chest was obtained. FINDINGS: Cardiac enlargement with slight central vascular congestion. Basilar atelectasis is present. There is no large effusion. There is no pneumothorax. Osseous structures are stable. IMPRESSION: Cardiac enlargement with central vascular congestion and basilar atelectasis. Dictated by: Dictated on workstation # [id number]
[2021-03-14] MEDS ORDERED: FUROSEMIDE 40 MG/4 ML INJ (LASIX) IVP ONE (21:30)
[2021-03-14 22:50] VITALS: BP 156/64
[2021-03-14] MEDS ORDERED: ONDANSETRON 4 MG (ZOFRAN) ORAL DISSOLVE TAB ONE (22:52)
[2021-03-14] MEDS ORDERED: ONDA4TAB11 PO (22:52)
[2021-03-14] MEDS ORDERED: ONDANSETRON 4 MG (ZOFRAN) ORAL DISSOLVE TAB PO ONE (23:00)
== END 2021-03-14 22:54 | disposition home or self-care (01) ==
LOC: EDUNIT# 18:45 → ER 18:47
DX: R41.0 Disorientation, unspecified (principal); T39.395A Adverse effect of other nonsteroidal anti-inflammatory drugs [NSAID], initial encounter; N17.9 Acute kidney failure, unspecified; E66.9 Obesity, unspecified; I10 Essential (primary) hypertension; E03.9 Hypothyroidism, unspecified; G89.29 Other chronic pain; M54.9 Dorsalgia, unspecified; I48.91 Unspecified atrial fibrillation; Z68.41 Body mass index [BMI] 40.0-44.9, adult; Z79.01 Long term (current) use of anticoagulants; Z79.82 Long term (current) use of aspirin; Z79.890 Hormone replacement therapy; Z79.899 Other long term (current) drug therapy; Z79.891 Long term (current) use of opiate analgesic
CPT/HCPCS: 36415; 51701; 71045; 80053; 81000; 83880; 84484; 85025; 86141; 93005; 93041; 96361; 96374

== ENCOUNTER 2021-03-22 08:45 | Emergency (ER) | payer MEDICARE, OTHER ==
[~2021-03-22] VITALS: Ht 157 cm; Wt 95.0 kg
[~2021-03-22 08:45] MED LIST changes: +ONDA4TAB11 PO
[2021-03-22] MEDS ORDERED: NS IV 500 ML 500 ML IV ONE (09:15)
[2021-03-22 09:24] LABS: BASOPHILS # (AUTO) 0.1 10^3/uL (0.0-0.1); BASOPHILS % (AUTO) 1 % (0-10); EOSINOPHILS # (AUTO) 0.2 10^3/uL (0.0-0.3); EOSINOPHILS % (AUTO) 2 % (0-10); HEMATOCRIT 33 % (35-52); HEMOGLOBIN 10.1 g/dL (11.5-16.0); LYMPHOCYTES # (AUTO) 1.9 10^3/uL (1.0-4.0); LYMPHOCYTES % (AUTO) 21 % (12-44); MEAN CORPUSCULAR HEMOGLOBIN 27 pg (25-34); MEAN CORPUSCULAR HGB CONC 31 g/dL (32-36); MEAN CORPUSCULAR VOLUME 88 fL (80-99); MEAN PLATELET VOLUME 11.1 fL (9.0-12.2); MONOCYTES # (AUTO) 0.8 10^3/uL (0.0-1.0); MONOCYTES % (AUTO) 9 % (0-12); NEUTROPHILS # (AUTO) 6.2 10^3/uL (1.8-7.8); NEUTROPHILS % (AUTO) 68 % (42-75); PLATELET COUNT 254 10^3/uL (130-400); WHITE BLOOD COUNT 9.2 10^3/uL (4.3-11.0)
[2021-03-22 09:28] LABS: ALBUMIN 3.8 GM/DL (3.2-4.5); POTASSIUM 4.2 MMOL/L (3.6-5.0)
[2021-03-22 09:29] LABS: CALCIUM 9.2 MG/DL (8.5-10.1)
[2021-03-22] MEDS ORDERED: ONDANSETRON 4 MG/2 ML (SDV) Z0FRAN IVP ONE (09:30)
[2021-03-22 09:31] LABS: TOTAL PROTEIN 6.7 GM/DL (6.4-8.2)
[2021-03-22 09:32] LABS: BILIRUBIN,TOTAL 0.4 MG/DL (0.1-1.0)
[2021-03-22 09:34] LABS: CREATININE SERUM 1.47 MG/DL (0.60-1.30)
[2021-03-22 10:03] LABS: BILIRUBIN,URINE NEGATIVE (NEGATIVE); CLARITY,URINE CLEAR; COLOR,URINE YELLOW; GLUCOSE, URINE (UA) NEGATIVE (NEGATIVE); KETONES,URINE NEGATIVE (NEGATIVE); LEUKOCYTE ESTERASE ,URINE NEGATIVE (NEGATIVE); NITRITE,URINE NEGATIVE (NEGATIVE); PROTEIN,URINE 2+ (NEGATIVE)
--- NOTE | 2021-03-22 10:06 | ED Abdominal Pain ---
General Chief Complaint: Abdominal/GI Problems Stated Complaint: NAUSEA Nursing Triage Note: TO ED PER W/C WITH C/O NAUSEA FOR 1 WEEK AND VOMITING. WAS SEEN AND GIVEN MEDS BY PCP. WAS DISCHARGE Source of Information: Patient, Family Exam Limitations: No Limitations History of Present Illness Date Seen by Provider: Mar 22, 2021 Time Seen by Provider: 08:57 Initial Comments Here with report of nausea and vomiting over the last week. Patient has had difficult course over the past several weeks after fall and breaking her pelvis. She was admitted here for 4 days and then transferred to [facility] for another week and then home last week. Since then she has had nausea that has been fairly persistent but controlled with nausea meds but worsened today and yesterday. Today she actually threw up her nausea meds. The daughter is concerned about dehydration. Patient complains of being weak. She does have swelling in her legs but they state that is actually typical and maybe even a little less than normal. No reported fever or chills. Denies dysuria. Denies chest pain or breathing problems. Timing/Duration: 1 Week, Getting Worse Severity/Quality: Moderate, Other (Nausea and vomiting) Location: Other (No specific painful locations) Radiation: No Radiation Activities at Onset: None Modifying Factors: Worsens With Eating; Improves With Resting Associated Symptoms: No Chest Pain, No Fever/Chills, No Shortness of Air; Weakness Allergies and Home Medications Allergies Coded Allergies: Sulfa (Sulfonamide Antibiotics) (Verified Allergy, Mild, ITCHING/SWOLLEN HANDS, 04/06/20) Home Medications Amitriptyline HCl 10 Mg Tablet, 10 MG PO HS, (Reported) Aspirin 81 Mg Tablet.dr, 81 MG PO BID, (Reported) Bumetanide 1 Mg Tablet, 1 MG PO Q72H PRN for FLUID RETENTION, (Reported) Cefdinir 300 Mg Capsule, 300 MG PO BID Prescribed by: MADYSON HERMAN on 03/08/21 1320 Fentanyl 1 Each Patch.td72, 50 MCG TD Q72H Prescribed by: MADYSON HERMAN on 03/08/21 1320 Gabapentin 300 Mg Capsule, 300 MG PO 1200,1500,2000, (Reported) Hydrocodone/Acetaminophen 1 Each Tablet, 1-2 TAB PO Q8H PRN for PAIN-MODERATE (5-7), (Reported) Latanoprost 2.5 Ml Drops, 1 DROPS OU HS, (Reported) Levothyroxine Sodium 50 Mcg Tablet, 50 MCG PO DAILY, (Reported) Lisinopril 20 Mg Tablet, 40 MG PO DAILY, (Reported) TAKES 2 (20MG) TABS Metoprolol Succinate 25 Mg Tab.er.24h, 25 MG PO 1500, (Reported) Ondansetron 4 Mg Tab.rapdis, 4 MG PO Q6H PRN for NAUSEA/VOMITING Prescribed by: CATRACHITA BYRD on 03/14/21 225 Oxycodone HCl 5 Mg Tablet, 5 MG PO Q4H PRN for PAIN-SEVERE (8-10) Prescribed by: MADYSON HERMAN on 03/08/21 1323 Rivaroxaban 15 Mg Tablet, 15 MG PO DAILY@0800 Prescribed by: MADYSON HERMAN on 03/08/21 1320 Simvastatin 40 Mg Tablet, 40 MG PO HS, (Reported) Patient Home Medication List Home Medication List Reviewed: Yes Review of Systems Review of Systems Constitutional: see HPI; No chills, No fever; weakness EENTM: No Nose Congestion, No Throat Pain Respiratory: Denies Cough, Denies SOA at Rest Cardiovascular: No Symptoms Reported Gastrointestinal: See HPI; Denies Constipated Genitourinary: Denies Burning, Denies Pain Musculoskeletal: No back pain, No joint pain Skin: no symptoms reported All Other Systems Reviewed Negative Unless Noted: Yes Past Wdmbgfz-Mmizux-Wuxpkg Hx Patient Social History Tobacco Use?: No Substance use?: No Pt feels they are or have been: No Immunizations Up To Date Tetanus Booster (TDap): Unknown Influenza Vaccine Up-to-Date: No; Not Current First/Initial COVID19 Vaccinat: AUG Second COVID19 Vaccination Rajeev: AUG Seasonal Allergies Seasonal Allergies: No Past Medical History Surgery/Hospitalization HX: brought in by [facility] for increased confusion, lethargy x3 days. recently treated for uti. Surgeries: Yes (COLOSTOMY) Appendectomy, Bowel Surgery, Hysterectomy, Orthopedic Respiratory: No Currently Using CPAP: No Currently Using BIPAP: No Cardiac: Yes Hypertension Neurological: No Neuropathy Sexually Transmitted Disease: No HIV/AIDS: No Genitourinary: No Bladder Infection, UTI-Chronic Gastrointestinal: Yes (PERFORATED BOWEL/BOWEL RESECTION/COLOSTOMY) Gastroesophageal Reflux, Diverticulosis Musculoskeletal: Yes Chronic Back Pain Endocrine: Yes Hypothyroidsim HEENT: Yes (READING GLASSES) Loss of Vision: Denies Hearing Impairment: Denies Cancer: Yes Uterine Did You Recieve Any Treatments: Yes What Type of Treatment Did You: Surgical Intervention Psychosocial: No Integumentary: Yes Recent Skin Changes Blood Disorders: No Adverse Reaction/Blood Tranf: No (HAS HAD BLOOD WITH NO REACTION) Family Medical History Reviewed Nursing Family Hx Cancer, Diabetes, Hypertension Physical Exam Vital Signs Vital Signs - First Documented 03/22/21 09:13 Temp 36.8 Pulse 72 Resp 18 B/P (MAP) 196/109 (138) Pulse Ox 97 O2 Delivery Room Air Capillary Refill : Less Than 3 Seconds Height/Weight/BMI Height: 5'2.00" Weight: 200lbs. 0.0oz. [id number]; 38.00 BMI Method: General Appearance: WD/WN, no apparent distress HEENT: PERRL/EOMI, pharynx normal Neck: full range of motion, supple Respiratory: lungs clear, normal breath sounds Cardiovascular: regular rate, rhythm, no murmur Peripheral Pulses: 2+ Dorsalis Pedis (R), 2+ Left Dors-Pedis (L), 2+ Radial Pulses (R), 2+ Radial Pulses (L) Gastrointestinal: normal bowel sounds, non tender, soft Extremities: non-tender, no calf tenderness, pedal edema (3+ bilateral lower extremities) Back: normal inspection, no CVA tenderness, no vertebral tenderness Neurologic/Psychiatric: alert, oriented x 3 Skin: normal color, warm/dry Procedures/Interventions Date of ETT Placement: May 30, 2019 Progress/Results/Core Measures Results/Orders Lab Results Laboratory Tests Test 03/22/21 09:06 03/22/21 09:57 Range/Units White Blood Count 9.2 4.3-11.0 10^3/uL Red Blood Count 3.73 L 3.80-5.11 10^6/uL Hemoglobin 10.1 L 11.5-16.0 g/dL Hematocrit 33 L 35-52 % Mean Corpuscular Volume 88 80-99 fL Mean Corpuscular Hemoglobin 27 25-34 pg Mean Corpuscular Hemoglobin Concent 31 L 32-36 g/dL Red Cell Distribution Width 15.9 H 10.0-14.5 % Platelet Count 254 130-400 10^3/uL Mean Platelet Volume 11.1 9.0-12.2 fL Immature Granulocyte % (Auto) 0 % Neutrophils (%) (Auto) 68 42-75 % Lymphocytes (%) (Auto) 21 12-44 % Monocytes (%) (Auto) 9 0-12 % Eosinophils (%) (Auto) 2 0-10 % Basophils (%) (Auto) 1 0-10 % Neutrophils # (Auto) 6.2 1.8-7.8 10^3/uL Lymphocytes # (Auto) 1.9 1.0-4.0 10^3/uL Monocytes # (Auto) 0.8 0.0-1.0 10^3/uL Eosinophils # (Auto) 0.2 0.0-0.3 10^3/uL Basophils # (Auto) 0.1 0.0-0.1 10^3/uL Immature Granulocyte # (Auto) 0.0 0.0-0.1 10^3/uL Sodium Level 143 135-145 MMOL/L Potassium Level 4.2 3.6-5.0 MMOL/L Chloride Level 107 98-107 MMOL/L Carbon Dioxide Level 22 21-32 MMOL/L Anion Gap 14 5-14 MMOL/L Blood Urea Nitrogen 19 H 7-18 MG/DL Creatinine 1.47 H 0.60-1.30 MG/DL Estimat Glomerular Filtration Rate 34 BUN/Creatinine Ratio 13 Glucose Level 109 H 70-105 MG/DL Calcium Level 9.2 8.5-10.1 MG/DL Corrected Calcium 9.4 8.5-10.1 MG/DL Total Bilirubin 0.4 0.1-1.0 MG/DL Aspartate Amino Transf (AST/SGOT) 13 5-34 U/L Alanine Aminotransferase (ALT/SGPT) 10 0-55 U/L Alkaline Phosphatase 171 H 40-136 U/L C-Reactive Protein High Sensitivity 0.33 0.00-0.50 MG/DL Total Protein 6.7 6.4-8.2 GM/DL Albumin 3.8 3.2-4.5 GM/DL Urine Color YELLOW Urine Clarity CLEAR Urine pH 6.0 5-9 Urine Specific [place] 1.015 L 1.016-1.022 Urine Protein 2+ H NEGATIVE Urine Glucose (UA) NEGATIVE NEGATIVE Urine Ketones NEGATIVE NEGATIVE Urine Nitrite NEGATIVE NEGATIVE Urine Bilirubin NEGATIVE NEGATIVE Urine Urobilinogen 0.2 < = 1.0 MG/DL Urine Leukocyte Esterase NEGATIVE NEGATIVE Urine RBC (Auto) TRACE-L NEGATIVE Urine RBC RARE /HPF Urine WBC RARE /HPF Urine Squamous Epithelial Cells RARE /HPF Urine Crystals NONE /LPF Urine Bacteria NEGATIVE /HPF Urine Casts NONE /LPF Urine Mucus NEGATIVE /LPF Urine Culture Indicated NO My Orders Orders - ROB HOUSE MD Cbc With Automated Diff (03/22/21 09:03) Comprehensive Metabolic Panel (03/22/21 09:03) Hs C Reactive Protein (03/22/21 09:03) Ua Culture If Indicated (03/22/21 09:03) Straight Cath For Spec.-Adult (03/22/21 09:03) Ed Iv/Invasive Line Start (03/22/21 09:03) Ns Iv 500 Ml (Sodium Chloride 0.9%) (03/22/21 09:15) Ondansetron Injection (Zofran Injectio (03/22/21 09:30) Medications Given in ED Current Medications Medications Dose Ordered Sig/Bk Route Start Time Stop Time Status Last Admin Dose Admin Ondansetron HCl 4 mg ONCE ONCE IVP 03/22/21 09:30 03/22/21 09:31 DC 03/22/21 09:25 4 MG Sodium Chloride 500 ml @ 0 mls/hr Q0M ONCE IV 03/22/21 09:15 03/22/21 09:16 DC 03/22/21 09:25 500 MLS/HR Vital Signs/I&O 03/22/21 09:13 Temp 36.8 Pulse 72 Resp 18 B/P (MAP) 196/109 (138) Pulse Ox 97 O2 Delivery Room Air Blood Pressure Mean: 138 Progress Progress Note : Progress Note Seen and evaluated. IV, labs, UA via straight cath, normal saline 500 mL bolus and Zofran 4 mg IV ordered. Monitor patient. 1030: Overall feeling much better. Labs and UA reviewed and show no significant findings and actually better than the previous hospitalization. I did discuss at length with the patient and family regarding therapy at home. She will continue clear or light diet and continue use of ondansetron at home. She does have Ensure shakes that she is using to supplement and has been using Pedialyte and/or other electrolyte-containing solutions for rehydration. She does seem to be adequately hydrated now. Given no acute findings on laboratory data, no indication for admission. Discharged home with return precautions. Patient and family verbalized understanding of instructions and agreement with plan. Departure Impression Primary Impression: Nausea and vomiting Qualified Codes: R11.2 - Nausea with vomiting, unspecified Disposition: 01 HOME, SELF-CARE Condition: Improved Departure-Patient Inst. Decision time for Depature: 10:33 Referrals: MADYSON HERMAN MD (PCP/Family) Primary Care Physician Patient Instructions: Nausea and Vomiting, Adult Add. Discharge Instructions: All discharge instructions reviewed with patient and/or family. Voiced understanding. Clear or light diet for the next 24 hours and then advance as tolerated. You may use your ondansetron 1 tablet scheduled every 6 hours for the next 24 hours and then return to as needed. Continue home medications as previously prescribed. Follow-up with your doctor this week for recheck and further evaluation. Return for worse pain, fever, vomiting, weakness, breathing problems or other concerns as needed. Copy Copies To 1: MADYSON HERMAN MD, TIMOTHY D MD Mar 22, 2021 10:06
[2021-03-22 10:17] LABS: BACTERIA,URINE NEGATIVE /HPF; RBC,URINE RARE /HPF; SQUAMOUS EPITHELIAL CELL,UR RARE /HPF; WBC,URINE RARE /HPF
[2021-03-22 11:09] VITALS: BP 187/92
== END 2021-03-22 11:09 | disposition home or self-care (01) ==
LOC: EDUNIT# 08:45 → ER 08:46
DX: R11.2 Nausea with vomiting, unspecified (principal); I10 Essential (primary) hypertension; E03.9 Hypothyroidism, unspecified; Z90.49 Acquired absence of other specified parts of digestive tract; Z93.3 Colostomy status; Z79.01 Long term (current) use of anticoagulants; Z79.82 Long term (current) use of aspirin; Z79.890 Hormone replacement therapy; Z79.899 Other long term (current) drug therapy
CPT/HCPCS: 36415; 51701; 80053; 81000; 85025; 86141; 96361; 96374

== ENCOUNTER → 2021-05-26 | Outpatient (CLI) | payer MEDICARE, OTHER | LOC: WOUNDCARE 13:08 | PROVIDERS: ATTEND Surgery | DX: L30.8 Other specified dermatitis (principal); I89.0 Lymphedema, not elsewhere classified; E66.01 Morbid (severe) obesity due to excess calories | CPT/HCPCS: 99213 ==

== ENCOUNTER → 2021-07-16 | Outpatient (CLI) | payer MEDICARE, OTHER ==
[~2021-07-16] MED LIST changes: +FUROSEMIDE 40 MG/4 ML INJ (LASIX) IVP ONE; +FUROSEMIDE 40 MG/4 ML INJ (LASIX) ONE; +NS IV 500 ML 500 ML IV SCH
[2021-07-16 09:17] LABS: BASOPHILS # (AUTO) 0.1 10^3/uL (0.0-0.1); BASOPHILS % (AUTO) 1 % (0-10); EOSINOPHILS # (AUTO) 0.5 10^3/uL (0.0-0.3); EOSINOPHILS % (AUTO) 5 % (0-10); HEMATOCRIT 25 % (35-52); HEMOGLOBIN 7.6 g/dL (11.5-16.0); LYMPHOCYTES # (AUTO) 2.8 10^3/uL (1.0-4.0); LYMPHOCYTES % (AUTO) 28 % (12-44); MEAN CORPUSCULAR HEMOGLOBIN 27 pg (25-34); MEAN CORPUSCULAR HGB CONC 30 g/dL (32-36); MEAN CORPUSCULAR VOLUME 92 fL (80-99); MEAN PLATELET VOLUME 10.7 fL (9.0-12.2); MONOCYTES # (AUTO) 1.2 10^3/uL (0.0-1.0); MONOCYTES % (AUTO) 12 % (0-12); NEUTROPHILS # (AUTO) 5.5 10^3/uL (1.8-7.8); NEUTROPHILS % (AUTO) 54 % (42-75); PLATELET COUNT 276 10^3/uL (130-400); WHITE BLOOD COUNT 10.2 10^3/uL (4.3-11.0)
[2021-07-16 10:35] VITALS: BP_SYST 157; BP_SYST 167; BP_DIAS 68; BP_DIAS 75
[2021-07-16 11:05] VITALS: BP 121/67
[2021-07-16 13:45] VITALS: BP 193/76
== END ==
LOC: SDC 08:33
PROVIDERS: ATTEND Family Medicine
DX: D50.9 Iron deficiency anemia, unspecified (principal); I50.30 Unspecified diastolic (congestive) heart failure
CPT/HCPCS: 36430; 85025; 86850; 86900; 86901; 86920; P9016; 36415

== ENCOUNTER → 2021-09-28 | Outpatient (CLI) | payer MEDICARE, OTHER ==
[~2021-09-28] MED LIST changes: -FUROSEMIDE 40 MG/4 ML INJ (LASIX) IVP ONE; -FUROSEMIDE 40 MG/4 ML INJ (LASIX) ONE; -NS IV 500 ML 500 ML IV SCH; +POTA-169 PO; -POTA20TA8 PO
--- NOTE | 2021-09-28 15:42 | Diagnostic Imaging Report ---
INDICATION: Trigger finger of the left 4th finger. TIME OF EXAM: 1:38 PM. COMPARISON: No prior studies are available for comparison. FINDINGS: Three views of the left 4th finger were obtained. There appear to be some benign calcifications at the DIP joint of the 4th finger. Alignment is normal. No fractures are seen. The soft tissues are unremarkable. There is generalized demineralization. Significant degenerative changes at the carpus, 1st CMC joint, and triscaphe joint are noted. IMPRESSION: Chronic changes. No acute bony abnormality is detected. Dictated by: Dictated on workstation # [id number]
== END ==
LOC: ORTHO 13:27
PROVIDERS: ATTEND Orthopaedic Surgery
DX: M65.342 Trigger finger, left ring finger (principal)
CPT/HCPCS: 20551; 73140; G0463

== ENCOUNTER → 2021-10-19 | Outpatient (CLI) | payer MEDICARE, OTHER | LOC: ORTHO 14:06 | PROVIDERS: ATTEND Orthopaedic Surgery | DX: M65.342 Trigger finger, left ring finger (principal) | CPT/HCPCS: 99212 ==

== ENCOUNTER 2022-10-21 09:07 | Emergency (ER) | payer MEDICARE, OTHER ==
[~2022-10-21] VITALS: Ht 157 cm; Wt 104.0 kg
[~2022-10-21 09:07] MED LIST changes: +HYDR20VI17 IV; -HYDR20VI7 IV
--- NOTE | 2022-10-21 09:33 | ED General ---
General Stated Complaint: FLU-LIKE SYMPTOMS History of Present Illness Date Seen by Provider: Oct 21, 2022 Time Seen by Provider: 09:33 Initial Comments 82-year-old female presents with not feeling well. She has been having nausea vomiting for about 5 days. She reports that it was initially nausea vomiting maybe some diarrhea for about 3 days with decreased appetite then it got better for a day and then today she started having dry heaves and nausea again. Patient reports that she has been unable keep anything down for few days she has a mail take her medicine for about a time. No reports of cough, fever or chills. She denies abdominal pain. She does have maybe some mild abdominal cramping. Allergies and Home Medications Allergies Coded Allergies: Sulfa (Sulfonamide Antibiotics) (Verified Allergy, Mild, ITCHING/SWOLLEN HANDS, 04/06/20) Patient Home Medication List Home Medication List Reviewed: Yes Amitriptyline HCl (Amitriptyline HCl) 10 Mg Tablet, 10 MG PO HS, (Reported) Entered as Reported by: BIBI STEELE on 06/27/19 1625 Aspirin (Aspirin EC) 81 Mg Tablet.dr, 81 MG PO BID, (Reported) Entered as Reported by: OLIVA VALIENTE on 09/11/19 0821 Bumetanide (Bumetanide) 1 Mg Tablet, 1 MG PO Q72H PRN for FLUID RETENTION, (Reported) Entered as Reported by: OILVA VALIENTE on 03/04/21 1507 Cefdinir (Cefdinir) 300 Mg Capsule, 300 MG PO BID Prescribed by: MADYSON HERMAN on 03/08/21 1320 Fentanyl (Fentanyl Patch 50 MCG) 1 Each Patch.td72, 50 MCG TD Q72H Prescribed by: MADYSON HERMAN on 03/08/21 1320 Gabapentin (Neurontin) 300 Mg Capsule, 300 MG PO 1200,1500,2000, (Reported) Entered as Reported by: OLIVA VALIENTE on 03/04/21 1507 Hydrocodone/Acetaminophen (Hydrocodone-Acetamin 5-325 mg) 1 Each Tablet, 1-2 TAB PO Q8H PRN for PAIN-MODERATE (5-7), (Reported) Entered as Reported by: OLIVA VALIENTE on 03/04/21 1507 Latanoprost (Xalatan) 2.5 Ml Drops, 1 DROPS OU HS, (Reported) Entered as Reported by: OLIVA VALIENTE on 03/04/21 1507 Levothyroxine Sodium (Levothyroxine Sodium) 50 Mcg Tablet, 50 MCG PO DAILY, (Reported) Entered as Reported by: OLIVA VALIENTE on 03/04/21 1507 Lisinopril (Lisinopril) 20 Mg Tablet, 40 MG PO DAILY, (Reported) Entered as Reported by: OLIVA VALIENTE on 03/04/21 1507 Metoprolol Succinate (Metoprolol Succinate) 25 Mg Tab.er.24h, 25 MG PO 1500, (Reported) Entered as Reported by: OLIVA VALINETE on 09/11/19 0821 Ondansetron (Ondansetron Odt) 4 Mg Tab.rapdis, 4 MG PO Q6H PRN for NAUSEA/VOMITING Prescribed by: CATRACHITA BYRD on 03/14/21 2252 Ondansetron (Ondansetron Odt) 4 Mg Tab.rapdis, 4 MG PO Q6H PRN for NAUSEA/VOMITING Prescribed by: SOUMYA BROWER on 10/21/22 1249 Oxycodone HCl (Oxycodone HCl) 5 Mg Tablet, 5 MG PO Q4H PRN for PAIN-SEVERE (8- 10) Prescribed by: MADYSON HERMAN on 03/08/21 1323 Rivaroxaban (Xarelto Tablet) 15 Mg Tablet, 15 MG PO DAILY@0800 Prescribed by: MADYSON HERMAN on 03/08/21 1320 Simvastatin (Simvastatin) 40 Mg Tablet, 40 MG PO HS, (Reported) Entered as Reported by: GIULIA GRAYSON on 05/27/19 1210 Review of Systems Review of Systems Constitutional: No chills, No fever; malaise Respiratory: No cough Cardiovascular: No chest pain; palpitations Gastrointestinal: No abdominal pain; loss of appetite, nausea, vomiting Genitourinary: no symptoms reported Musculoskeletal: no symptoms reported Skin: no symptoms reported Psychiatric/Neurological: No Symptoms Reported Past Faigukr-Lwcqyt-Nlrqsz Hx Immunizations Up To Date Tetanus Booster (TDap): Unknown Seasonal Allergies Seasonal Allergies: No Past Medical History Surgery/Hospitalization HX: brought in by [facility] for increased confusion, lethargy x3 days. recently treated for uti. Surgeries: Yes (COLOSTOMY) Appendectomy, Bowel Surgery, Hysterectomy, Orthopedic Respiratory: No Currently Using CPAP: No Currently Using BIPAP: No Cardiac: Yes Hypertension Neurological: No Neuropathy Sexually Transmitted Disease: No HIV/AIDS: No Genitourinary: No Bladder Infection, UTI-Chronic Gastrointestinal: Yes (PERFORATED BOWEL/BOWEL RESECTION/COLOSTOMY) Gastroesophageal Reflux, Diverticulosis Musculoskeletal: Yes Chronic Back Pain Endocrine: Yes Hypothyroidsim HEENT: Yes (READING GLASSES) Loss of Vision: Denies Hearing Impairment: Denies Cancer: Yes Uterine Did You Recieve Any Treatments: Yes What Type of Treatment Did You: Surgical Intervention Psychosocial: No Integumentary: Yes Recent Skin Changes Blood Disorders: No Adverse Reaction/Blood Tranf: No (HAS HAD BLOOD WITH NO REACTION) Family Medical History Cancer, Diabetes, Hypertension Physical Exam Vital Signs Vital Signs - First Documented 10/21/22 09:30 Temp 35.5 Pulse 145 Resp 16 B/P (MAP) 154/115 (128) Pulse Ox 99 O2 Delivery Room Air Capillary Refill : Height, Weight, BMI Height: 5'2.00" Weight: 200lbs. 0.0oz. [id number]; 38.00 BMI Method: General Appearance: Other (Not feeling well/mildly ill-appearing) Eyes: Bilateral Eye Normal Inspection HEENT: PERRL/EOMI, Other (Dry lips) Neck: Non Tender, Supple Respiratory: Lungs Clear, Normal Breath Sounds Cardiovascular: Irregularly Irregular, Tachycardia Gastrointestinal: Non Tender, Soft; No Distended Extremity: Swelling Neurologic/Psychiatric: Alert, Oriented x3, Normal Mood/Affect Skin: Other (Mild bilateral chronic venous stasis changes) Procedures/Interventions Date of ETT Placement: May 30, 2019 Progress/Results/Core Measures Suspected Sepsis SIRS Temperature: Pulse: Respiratory Rate: Laboratory Tests 10/21/22 09:45: White Blood Count 9.1 Blood Pressure / Mean: Laboratory Tests 10/21/22 09:45: Creatinine 1.70H, Platelet Count 351, Total Bilirubin 0.3 Results/Orders Lab Results Laboratory Tests Test 10/21/22 09:32 10/21/22 09:45 10/21/22 10:39 10/21/22 10:46 Range/Units Influenza Type A (RT-PCR) Not Detected Not Detecte Influenza Type B (RT-PCR) Not Detected Not Detecte SARS-CoV-2 RNA (RT-PCR) Not Detected Not Detecte White Blood Count 9.1 4.3-11.0 10^3/uL Red Blood Count 3.62 L 3.80-5.11 10^6/uL Hemoglobin 11.0 L 11.5-16.0 g/dL Hematocrit 34 L 35-52 % Mean Corpuscular Volume 93 80-99 fL Mean Corpuscular Hemoglobin 30 25-34 pg Mean Corpuscular Hemoglobin Concent 33 32-36 g/dL Red Cell Distribution Width 12.4 10.0-14.5 % Platelet Count 351 130-400 10^3/uL Mean Platelet Volume 10.7 9.0-12.2 fL Immature Granulocyte % (Auto) 1 % Neutrophils (%) (Auto) 60 42-75 % Lymphocytes (%) (Auto) 28 12-44 % Monocytes (%) (Auto) 9 0-12 % Eosinophils (%) (Auto) 2 0-10 % Basophils (%) (Auto) 1 0-10 % Neutrophils # (Auto) 5.4 1.8-7.8 10^3/uL Lymphocytes # (Auto) 2.5 1.0-4.0 10^3/uL Monocytes # (Auto) 0.8 0.0-1.0 10^3/uL Eosinophils # (Auto) 0.2 0.0-0.3 10^3/uL Basophils # (Auto) 0.1 0.0-0.1 10^3/uL Immature Granulocyte # (Auto) 0.1 0.0-0.1 10^3/uL Sodium Level 142 135-145 MMOL/L Potassium Level 5.0 3.6-5.0 MMOL/L Chloride Level 110 H 98-107 MMOL/L Carbon Dioxide Level 18 L 21-32 MMOL/L Anion Gap 14 5-14 MMOL/L Blood Urea Nitrogen 42 H 7-18 MG/DL Creatinine 1.70 H 0.60-1.30 MG/DL Estimat Glomerular Filtration Rate 29 BUN/Creatinine Ratio 25 Glucose Level 125 H 70-105 MG/DL Calcium Level 9.1 8.5-10.1 MG/DL Corrected Calcium 9.3 8.5-10.1 MG/DL Magnesium Level 1.9 1.6-2.4 MG/DL Total Bilirubin 0.3 0.1-1.0 MG/DL Aspartate Amino Transf (AST/SGOT) 28 5-34 U/L Alanine Aminotransferase (ALT/SGPT) 21 0-55 U/L Alkaline Phosphatase 127 40-136 U/L Total Protein 6.6 6.4-8.2 GM/DL Albumin 3.8 3.2-4.5 GM/DL Lipase 19 8-78 U/L Urine Color YELLOW Urine Clarity CLEAR Urine pH 6.0 5-9 Urine Specific [place] 1.010 L 1.016-1.022 Urine Protein 1+ H NEGATIVE Urine Glucose (UA) NEGATIVE NEGATIVE Urine Ketones NEGATIVE NEGATIVE Urine Nitrite NEGATIVE NEGATIVE Urine Bilirubin NEGATIVE NEGATIVE Urine Urobilinogen 0.2 < = 1.0 MG/DL Urine Leukocyte Esterase NEGATIVE NEGATIVE Urine RBC (Auto) TRACE-I H NEGATIVE Urine RBC RARE /HPF Urine WBC NONE /HPF Urine Squamous Epithelial Cells RARE /HPF Urine Crystals NONE /LPF Urine Bacteria NEGATIVE /HPF Urine Casts NONE /LPF Urine Mucus NEGATIVE /LPF Urine Culture Indicated NO Glucometer 107 70-110 MG/DL My Orders Orders - BROWER,SOUMYA L DO Cbc With Automated Diff (10/21/22 09:41) Comprehensive Metabolic Panel (10/21/22 09:41) Lipase (10/21/22 09:41) Magnesium (10/21/22 09:41) Ua Culture If Indicated (10/21/22 09:41) Influenza A And B By Pcr (10/21/22 09:41) Covid 19 Inhouse Test (10/21/22 09:41) Ondansetron Injection (Zofran Injectio (10/21/22 09:45) Ns Iv 1000 Ml (Sodium Chloride 0.9%) (10/21/22 09:41) Accucheck Stat ONCE (10/21/22 09:41) Ekg Tracing (10/21/22 09:41) Monitor-Rhythm Ecg Trace Only (10/21/22 09:41) Diltiazem Injection (Cardizem Injection) (10/21/22 11:00) Metoprolol Succinate (Xl) Tab (Toprol Xl (10/21/22 11:15) Ed Iv/Invasive Line Start (10/21/22 11:15) Ns Iv 500 Ml (Sodium Chloride 0.9%) (10/21/22 11:15) Metoprolol Tartrate Injection (Lopressor (10/21/22 12:00) Medications Given in ED Current Medications Medications Dose Ordered Sig/Bk Route Start Time Stop Time Status Last Admin Dose Admin Diltiazem HCl 10 mg ONCE ONCE IVP 10/21/22 11:00 10/21/22 11:01 DC 10/21/22 10:57 10 MG Metoprolol Tartrate 5 mg ONCE ONCE IV 10/21/22 12:00 10/21/22 12:01 DC 10/21/22 12:10 5 MG Ondansetron HCl 4 mg ONCE ONCE IVP 10/21/22 09:45 10/21/22 09:46 DC 10/21/22 09:49 4 MG Vital Signs/I&O 10/21/22 10/21/22 09:30 10:57 Temp 35.5 Pulse 145 149 Resp 16 B/P (MAP) 154/115 (128) 146/120 Pulse Ox 99 O2 Delivery Room Air Capillary Refill : Progress Note : Progress Note Patient labs were reviewed and compared to previous labs that were reviewed. Sh e appears to be at her baseline. Patient A-fib responded appropriately to IV fluids and medications. Patient was feeling significantly better. I did call and visit with patient's primary care provider who confirmed that she does have a history of atrial fib and is on metoprolol for it, we reviewed patient's labs and medications.. Patient was given a p.o. challenge in the ER and tolerated without difficulty. After discussion with her primary care provider and then patient family, patient stable for discharge home. She will return to the ER over the weekend if her symptoms worsen or if she has any concerns. She should follow-up with her primary care provider next week. ECG Initial ECG Impression Date: Oct 21, 2022 Initial ECG Impression Time: 09:37 Initial ECG Rate: 153 Initial ECG Rhythm: A Fib/Flutter Initial ECG Impression: Atrial Fibrillation w/RVR Departure Impression Primary Impression: Nausea and vomiting Qualified Codes: R11.2 - Nausea with vomiting, unspecified Additional Impressions: Atrial fibrillation Qualified Codes: I48.91 - Unspecified atrial fibrillation Mild dehydration Disposition: 01 HOME, SELF-CARE Condition: Stable Departure-Patient Inst. Referrals: MADYSON HERMAN MD (PCP/Family) Primary Care Physician Patient Instructions: Nausea and Vomiting, Adult ED, Atrial Fibrillation Add. Discharge Instructions: Please start with clear liquid diet then advance as tolerated. Follow-up with Dr. Herman next week for recheck of your symptoms. Return to the ER over the weekend with any concerns. Scripts Ondansetron (Ondansetron Odt) 4 Mg Tab.rapdis 4 MG PO Q6H PRN for NAUSEA/VOMITING, #20 TAB 0 Refills Prov: SOUMYA BROWER DO 10/21/22 SOUMYA BROWER DO Oct 21, 2022 09:33
[2022-10-21] MEDS ORDERED: NS IV 1000 ML 1,000 ML IV STA (09:41)
[2022-10-21] MEDS ORDERED: ONDANSETRON 4 MG/2 ML (SDV) Z0FRAN IVP ONE (09:45)
[2022-10-21 09:57] LABS: BASOPHILS # (AUTO) 0.1 10^3/uL (0.0-0.1); BASOPHILS % (AUTO) 1 % (0-10); EOSINOPHILS # (AUTO) 0.2 10^3/uL (0.0-0.3); EOSINOPHILS % (AUTO) 2 % (0-10); HEMATOCRIT 34 % (35-52); LYMPHOCYTES # (AUTO) 2.5 10^3/uL (1.0-4.0); LYMPHOCYTES % (AUTO) 28 % (12-44); MEAN CORPUSCULAR HEMOGLOBIN 30 pg (25-34); MEAN CORPUSCULAR HGB CONC 33 g/dL (32-36); MEAN CORPUSCULAR VOLUME 93 fL (80-99); MEAN PLATELET VOLUME 10.7 fL (9.0-12.2); MONOCYTES # (AUTO) 0.8 10^3/uL (0.0-1.0); MONOCYTES % (AUTO) 9 % (0-12); NEUTROPHILS # (AUTO) 5.4 10^3/uL (1.8-7.8); NEUTROPHILS % (AUTO) 60 % (42-75); PLATELET COUNT 351 10^3/uL (130-400); WHITE BLOOD COUNT 9.1 10^3/uL (4.3-11.0)
[2022-10-21 10:01] LABS: ALBUMIN 3.8 GM/DL (3.2-4.5)
[2022-10-21 10:02] LABS: CALCIUM 9.1 MG/DL (8.5-10.1)
[2022-10-21 10:04] LABS: TOTAL PROTEIN 6.6 GM/DL (6.4-8.2)
[2022-10-21 10:06] LABS: BILIRUBIN,TOTAL 0.3 MG/DL (0.1-1.0)
[2022-10-21 10:07] LABS: CREATININE SERUM 1.7 MG/DL (0.60-1.30)
[2022-10-21 10:10] LABS: MAGNESIUM 1.9 MG/DL (1.6-2.4)
[2022-10-21 10:47] LABS: BILIRUBIN,URINE NEGATIVE (NEGATIVE); CLARITY,URINE CLEAR; COLOR,URINE YELLOW; GLUCOSE, URINE (UA) NEGATIVE (NEGATIVE); KETONES,URINE NEGATIVE (NEGATIVE); LEUKOCYTE ESTERASE ,URINE NEGATIVE (NEGATIVE); NITRITE,URINE NEGATIVE (NEGATIVE); PROTEIN,URINE 1+ (NEGATIVE)
[2022-10-21 10:54] LABS: BACTERIA,URINE NEGATIVE /HPF; RBC,URINE RARE /HPF; SQUAMOUS EPITHELIAL CELL,UR RARE /HPF
[2022-10-21] MEDS ORDERED: NS IV 500 ML 500 ML IV ONE (11:15)
[2022-10-21] MEDS ORDERED: meTOproloL SUCCINATE 50 MG (TOPROL XL) TAB PO SCH (11:15)
[2022-10-21] MEDS ORDERED: meTOprolol 5 MG/5 ML (LOPRESSOR) VIAL IV ONE (12:00)
[2022-10-21] MEDS ORDERED: ONDA4TAB11 PO (12:49)
[2022-10-21 13:13] VITALS: BP 141/98
[2022-10-25] MEDS ORDERED: CEFD300C3 PO (10:16)
[2022-10-25] MEDS ORDERED: DILT240C91 PO (10:16)
== END 2022-10-21 13:12 | disposition home or self-care (01) ==
LOC: EDUNIT# 09:07 → ER 09:09
DX: I48.91 Unspecified atrial fibrillation (principal); R11.2 Nausea with vomiting, unspecified; E86.0 Dehydration; Z20.822 Contact with and (suspected) exposure to COVID-19
CPT/HCPCS: 36415; 80053; 81000; 82947; 83690; 83735; 85025; 87636; 93005; 93041

== ENCOUNTER 2022-10-23 10:36 | Inpatient (IN) | payer MEDICARE, OTHER ==
[~2022-10-23] VITALS: Ht 157.5 cm; Wt 106.0 kg
[2022-10-23] MEDS ORDERED: NS IV 1000 ML 1,000 ML IV STA (10:58)
--- NOTE | 2022-10-23 11:09 | ED GI ---
General Chief Complaint: Abdominal/GI Problems Stated Complaint: ABDOMINAL PAIN, NAUSEA, DIARRHEA Nursing Triage Note: PT TO ED W/ C/O ABD PAIN ET NAUSEA. REPORTS WAS SEEN X2-3 DAYS AGO FOR SAME C/O. REPORTS NO DIARRHEA AT THIS TIME. Source of Information: Patient, Family Exam Limitations: No Limitations History of Present Illness Date Seen by Provider: Oct 23, 2022 Time Seen by Provider: 11:09 Initial Comments Patient is a 82-year-old female with a history of A-fib, CHF who presents ED with family for nausea, vomiting and abdominal pain. She states she has been having nausea and vomiting diarrhea over the past week. This appears to be intermittent. She reports today dry heaving. According to family at bedside she was seen here 2 days ago for similar symptoms. She was discharged home and has not improved. Her primary care physician ordered her Zofran without much improvement. Decreased appetite. Not wanting to eat or drink at home. She is urinating but not as much. Has not been taking her medication. She also reports feeling bloated and distended with generalized abdominal discomfort. History of diverticulitis with bowel resection in the past. No pain with urination. Denies chest pain, shortness of breath or cough. Currently A-fib on arrival. Allergies and Home Medications Allergies Coded Allergies: Sulfa (Sulfonamide Antibiotics) (Verified Allergy, Mild, ITCHING/SWOLLEN HANDS, 04/06/20) Patient Home Medication List Home Medication List Reviewed: Yes Amitriptyline HCl (Amitriptyline HCl) 10 Mg Tablet, 10 MG PO HS, (Reported) Entered as Reported by: BIBI STEELE on 06/27/19 1625 Last Action: Reviewed Aspirin (Aspirin EC) 81 Mg Tablet.dr, 81 MG PO BID, (Reported) Entered as Reported by: OLIVA VALIENTE on 09/11/19 0821 Last Action: Reviewed Bumetanide (Bumetanide) 1 Mg Tablet, 1 MG PO Q72H PRN for FLUID RETENTION, (Reported) Entered as Reported by: OLIVA VALIENTE on 03/04/21 1507 Last Action: Reviewed Cefdinir (Cefdinir) 300 Mg Capsule, 300 MG PO BID Prescribed by: MARILUZ MAYORGA on 10/25/22 1016 Diltiazem HCl (Diltiazem 24Hr ER) 240 Mg Cap.er.24h, 240 MG PO DAILY Prescribed by: MARILUZ MAYORGA on 10/25/22 1016 Gabapentin (Neurontin) 300 Mg Capsule, 300 MG PO 1200,1500,2000, (Reported) Entered as Reported by: OLIVA VALIENTE on 03/04/21 150 Last Action: Reviewed Levothyroxine Sodium (Levothyroxine Sodium) 50 Mcg Tablet, 50 MCG PO DAILY, (Reported) Entered as Reported by: OLIVA VALIENTE on 03/04/21 150 Last Action: Reviewed Lisinopril (Lisinopril) 20 Mg Tablet, 40 MG PO DAILY, (Reported) Entered as Reported by: OLIVA VALIENTE on 03/04/21 150 Last Action: Reviewed Metoprolol Succinate (Metoprolol Succinate) 50 Mg Tab.er.24h, 50 MG PO DAILY, (Reported) Entered as Reported by: ELPIDIO SANFORD on 10/24/22 1835 Last Action: Reviewed Ondansetron (Ondansetron Odt) 4 Mg Tab.rapdis, 4 MG PO Q6H PRN for NAUSEA/VOMITING Prescribed by: SOUMYA BROWER on 10/21/22 1249 Last Action: Reviewed Oxycodone HCl (Oxycodone HCl) 5 Mg Tablet, 5 MG PO Q4H PRN for PAIN-SEVERE (8- 10) Prescribed by: MADYSON HERMAN on 03/08/21 1323 Last Action: Reviewed Rivaroxaban (Xarelto Tablet) 15 Mg Tablet, 15 MG PO DAILY@0800 Prescribed by: MADYSON HERMAN on 03/08/21 1320 Last Action: Reviewed Simvastatin (Simvastatin) 40 Mg Tablet, 40 MG PO HS, (Reported) Entered as Reported by: GIULIA GRAYSON on 05/27/19 1210 Last Action: Reviewed Discontinued Medications Cefdinir (Cefdinir) 300 Mg Capsule, 300 MG PO BID Discontinued Reason: No Longer Taking Prescribed by: MADYSON HERMAN on 03/08/21 1320 Last Action: Discontinued Fentanyl (Fentanyl Patch 50 MCG) 1 Each Patch.td72, 50 MCG TD Q72H Discontinued Reason: No Longer Taking Prescribed by: MADYSON HERMAN on 03/08/21 1320 Last Action: Discontinued Hydrocodone/Acetaminophen (Hydrocodone-Acetamin 5-325 mg) 1 Each Tablet, 1-2 TAB PO Q8H PRN for PAIN-MODERATE (5-7), (Reported) Discontinued Reason: No Longer Taking Entered as Reported by: OLIVA VALIENTE on 03/04/21 1507 Last Action: Discontinued Latanoprost (Xalatan) 2.5 Ml Drops, 1 DROPS OU HS, (Reported) Discontinued Reason: No Longer Taking Entered as Reported by: OLIVA VALIENTE on 03/04/21 1507 Last Action: Discontinued Metoprolol Succinate (Metoprolol Succinate) 25 Mg Tab.er.24h, 25 MG PO 1500, (Reported) Discontinued Reason: No Longer Taking Entered as Reported by: OLIVA AVLIENTE on 09/11/19 0821 Last Action: Discontinued Ondansetron (Ondansetron Odt) 4 Mg Tab.rapdis, 4 MG PO Q6H PRN for NAUSEA/VOMITING Discontinued Reason: No Longer Taking Prescribed by: CATRACHITA BYRD on 03/14/21 624 Last Action: Discontinued Review of Systems Review of Systems Constitutional: chills, malaise, weakness EENTM: No Double Vision, No Eye Pain Respiratory: Denies Cough, Denies Shortness of Air, Denies SOA at Rest Cardiovascular: Denies Chest Pain, Denies Edema Gastrointestinal: Denies Abdomen Distended; Abdominal Pain, Diarrhea, Nausea, Poor Appetite, Vomiting Genitourinary: Denies Burning, Denies Discharge, Denies Drainage, Denies Frequency Musculoskeletal: No back pain, No joint pain Skin: No change in color, No change in hair/nails All Other Systems Reviewed Negative Unless Noted: Yes Past Xaotfaw-Aogbvt-Ntgjra Hx Patient Social History Tobacco Use?: No Use of E-Cig and/or Vaping dev: No Substance use?: No Alcohol Use?: No Pt feels they are or have been: No Immunizations Up To Date Tetanus Booster (TDap): Unknown First/Initial COVID19 Vaccinat: AUG Second COVID19 Vaccination Rajeev: Aug COVID19 Vaccination Date: AUG Seasonal Allergies Seasonal Allergies: No Past Medical History Surgery/Hospitalization HX: KNEE REPLACEMENT HIP REPLACEMENT RAVI APPY HYST ABD SURGERY T&A Surgeries: Yes (COLOSTOMY) Appendectomy, Bowel Surgery, Hysterectomy, Orthopedic Respiratory: No Currently Using CPAP: No Currently Using BIPAP: No Cardiac: Yes Hypertension Neurological: No Neuropathy Sexually Transmitted Disease: No HIV/AIDS: No Genitourinary: No Bladder Infection, UTI-Chronic Gastrointestinal: Yes (PERFORATED BOWEL/BOWEL RESECTION/COLOSTOMY) Gastroesophageal Reflux, Diverticulosis Musculoskeletal: Yes Chronic Back Pain Endocrine: Yes Hypothyroidsim HEENT: Yes (READING GLASSES) Loss of Vision: Denies Hearing Impairment: Denies Cancer: Yes Uterine Did You Recieve Any Treatments: Yes What Type of Treatment Did You: Surgical Intervention Psychosocial: No Integumentary: Yes Recent Skin Changes Blood Disorders: No Adverse Reaction/Blood Tranf: No (HAS HAD BLOOD WITH NO REACTION) Family Medical History Cancer, Diabetes, Hypertension Physical Exam Vital Signs Vital Signs - First Documented 10/23/22 10:53 Temp 36.1 Pulse 124 Resp 20 B/P (MAP) 154/116 (129) Pulse Ox 96 O2 Delivery Room Air Capillary Refill : Less Than 3 Seconds Height/Weight/BMI Height: 5'2.00" Weight: 200lbs. 0.0oz. [id number]; 40.00 BMI Method: General Appearance: WD/WN, no apparent distress HEENT: PERRL/EOMI, normal ENT inspection, TMs normal, pharynx normal Neck: non-tender, full range of motion Respiratory: chest non-tender, lungs clear, normal breath sounds, no respiratory distress, no accessory muscle use Cardiovascular: no edema, no gallop, no JVD, irregularly irregular Gastrointestinal: normal bowel sounds, soft, tenderness (Generalized tenderne ss) Extremities: normal range of motion, non-tender, normal inspection, no pedal edema Back: normal inspection, no CVA tenderness Neurologic/Psychiatric: case therapist II-XII nml as tested, no motor/sensory deficits, alert, normal mood/affect, oriented x 3 Skin: normal color, warm/dry Procedures/Interventions Date of ETT Placement: May 30, 2019 Progress/Results/Core Measures Results/Orders Lab Results Laboratory Tests Test 10/23/22 11:20 10/23/22 12:40 Range/Units White Blood Count 10.4 4.3-11.0 10^3/uL Red Blood Count 3.74 L 3.80-5.11 10^6/uL Hemoglobin 11.3 L 11.5-16.0 g/dL Hematocrit 35 35-52 % Mean Corpuscular Volume 92 80-99 fL Mean Corpuscular Hemoglobin 30 25-34 pg Mean Corpuscular Hemoglobin Concent 33 32-36 g/dL Red Cell Distribution Width 12.5 10.0-14.5 % Platelet Count 380 130-400 10^3/uL Mean Platelet Volume 10.3 9.0-12.2 fL Immature Granulocyte % (Auto) 1 % Neutrophils (%) (Auto) 64 42-75 % Lymphocytes (%) (Auto) 26 12-44 % Monocytes (%) (Auto) 8 0-12 % Eosinophils (%) (Auto) 1 0-10 % Basophils (%) (Auto) 1 0-10 % Neutrophils # (Auto) 6.6 1.8-7.8 10^3/uL Lymphocytes # (Auto) 2.7 1.0-4.0 10^3/uL Monocytes # (Auto) 0.8 0.0-1.0 10^3/uL Eosinophils # (Auto) 0.1 0.0-0.3 10^3/uL Basophils # (Auto) 0.1 0.0-0.1 10^3/uL Immature Granulocyte # (Auto) 0.2 H 0.0-0.1 10^3/uL Sodium Level 140 135-145 MMOL/L Potassium Level 4.5 3.6-5.0 MMOL/L Chloride Level 110 H 98-107 MMOL/L Carbon Dioxide Level 18 L 21-32 MMOL/L Anion Gap 12 5-14 MMOL/L Blood Urea Nitrogen 36 H 7-18 MG/DL Creatinine 1.77 H 0.60-1.30 MG/DL Estimat Glomerular Filtration Rate 28 BUN/Creatinine Ratio 20 Glucose Level 122 H 70-105 MG/DL Calcium Level 9.3 8.5-10.1 MG/DL Corrected Calcium 9.5 8.5-10.1 MG/DL Magnesium Level 1.7 1.6-2.4 MG/DL Total Bilirubin 0.3 0.1-1.0 MG/DL Aspartate Amino Transf (AST/SGOT) 24 5-34 U/L Alanine Aminotransferase (ALT/SGPT) 20 0-55 U/L Alkaline Phosphatase 117 40-136 U/L C-Reactive Protein High Sensitivity 0.70 H 0.00-0.50 MG/DL Total Protein 6.8 6.4-8.2 GM/DL Albumin 3.8 3.2-4.5 GM/DL Lipase 19 8-78 U/L Urine Color YELLOW Urine Clarity CLOUDY Urine pH 6.0 5-9 Urine Specific [place] 1.025 H 1.016-1.022 Urine Protein 2+ H NEGATIVE Urine Glucose (UA) NEGATIVE NEGATIVE Urine Ketones NEGATIVE NEGATIVE Urine Nitrite POSITIVE H NEGATIVE Urine Bilirubin NEGATIVE NEGATIVE Urine Urobilinogen 0.2 < = 1.0 MG/DL Urine Leukocyte Esterase 1+ H NEGATIVE Urine RBC (Auto) TRACE-I H NEGATIVE Urine RBC 5-10 H /HPF Urine WBC 25-50 H /HPF Urine Squamous Epithelial Cells 5-10 /HPF Urine Crystals NONE /LPF Urine Bacteria LARGE H /HPF Urine Casts NONE /LPF Urine Mucus MODERATE H /LPF Urine Culture Indicated YES Micro Results Microbiology 10/23/22 Urine Culture - Final, Complete Klebsiella pneumoniae My Orders Orders - JOSE HUFFMAN Cbc With Automated Diff (10/23/22 10:58) Comprehensive Metabolic Panel (10/23/22 10:58) Lipase (10/23/22 10:58) Ua Culture If Indicated (10/23/22 10:58) Ekg Tracing (10/23/22 10:58) Ns Iv 1000 Ml (Sodium Chloride 0.9%) (10/23/22 10:58) Hs C Reactive Protein (10/23/22 11:05) Ondansetron Injection (Zofran Injectio (10/23/22 11:15) Chest 1 View, Ap/Pa Only (10/23/22 11:05) Magnesium (10/23/22 11:07) Diltiazem Injection (Cardizem Injection) (10/23/22 11:15) Diltiazem Injection (Cardizem Injection) (10/23/22 11:30) Ct Abdomen/Pelvis Wo (10/23/22 11:05) Urine Culture (10/23/22 12:40) Ceftriaxone 1 Gm Pre-Mix (Rocephin 1 Gm (10/23/22 13:53) Code/Resuscitation (10/23/22 13:53) Diltiazem Drip Pre-Mix (Cardizem Drip Pr (10/23/22 13:53) Ed Admission (Communication) (10/23/22 13:54) Ondansetron Injection (Zofran Injectio (10/23/22 14:13) Medications Given in ED Vital Signs/I&O 210/23/22 10/23/22 10/23/22 10:53 11:32 11:32 14:18 Temp 36.1 Pulse 124 124 124 116 Resp 20 B/P (MAP) 154/116 (129) 154/116 154/116 149/119 Pulse Ox 96 O2 Delivery Room Air 10/23/22 16:40 Temp 36.4 Pulse 105 Resp 20 B/P (MAP) 175/87 Pulse Ox 99 O2 Delivery Room Air Blood Pressure Mean: 129 Critical Care Note Critical Care Start Time: 11:30 Stop Time: 12:10 Total Time (minutes) 40 Departure Communication (Admissions) Time/Spoke to Admitting Phy: 13:09 Discussed patient with hospitalist Dr. Lanza. Consulted with Dr. Dozier fire extinguisher repairer regarding A-fib with RVR. Recommended starting on a Cardizem drip, Lovenox 1 mg/kg Communication (PCP) Patient on arrival A-fib with RVR. Heart rate between 130 and 170. Patient has a history of A-fib currently on metoprolol and Xarelto. Has not been able to take her medications secondary to the vomiting. Patient was given a dose of Cardizem 10 mg with improvement of heart rate to near 100. Was started on a liter of fluid concerning for dehydration with the nausea, vomiting and diarrhea. No improvement with Zofran. Patient was seen here on the had general lab work performed which was unremarkable, unremarkable urinalysis, and treated for her A-fib with RVR. Patient has not seen any improvement. Generalized abdominal pain. Denies of any bloody mucousy stool. History of colonic perforation requiring colostomy with reversal in 2019. Due to the ongoing nausea, vomiting, diarrhea a liter of fluid was started. Lab work CBC, CMP, lipase and CT abdomen pelvis due to the abdominal pain and diarrhea. White blood count 10.4, creatinine 1.77, GFR 25. Lab work otherwise unremarkable. Slight change in kidney function from her last visit. History of kidney disease. CT abdomen pelvis shows a new L1 compression fracture with 30% height loss with 2 mm retropulsion without associated spinal canal stenosis. No distal numbness and tingling. She denies of any fall. She has no tenderness to palpate at this time. Generalized abdominal tenderness. CT abdomen pelvis negative for ischemic bowel. Chronic findings noted. Urinalysis positive for nitrite, white blood cell 25-50 concerning for urinary tract infection. Was given dose of Rocephin. Due to her nausea she was given 8 mg of Zofran. Not able to control heart rate patient was discussed with Dr. Drew fire extinguisher repairer who recommend starting on a Cardizem drip. She is currently on a blood thinner. Further cardiac evaluation as needed. Patient was discussed with Dr. Lanza hospitalist who accepts patient to the ICU. Patient required critical care time of 40 min secondary to the A-fib with RVR requiring Cardizem drip. She has no chest pain, shortness of breath or cough. Chest x-ray was negative for pneumonia. She had a negative COVID influenza her last visit on October 21. Impression Primary Impression: Atrial fibrillation with RVR Additional Impressions: UTI (urinary tract infection) Vomiting and diarrhea Compression fracture of L1 lumbar vertebra Acute kidney injury Disposition: ADMITTED INPATIENT Condition: Stable Admissions Decision to Admit Reason: Admit from ER (General) Decision to Admit/Date: Oct 23, 2022 Time/Decision to Admit Time: 13:09 Departure-Patient Inst. Referrals: MADYSON HERMAN MD (PCP/Family) Primary Care Physician Scripts Cefdinir (Cefdinir) 300 Mg Capsule 300 MG PO BID for 5 Days, #10 CAP Prov: MARILUZ MAYORGA MD 10/25/22 Diltiazem HCl (Diltiazem 24Hr ER) 240 Mg Cap.er.24h 240 MG PO DAILY for 30 Days, #30 CAP Prov: MARILUZ MAYORGA MD 10/25/22 JOSE HUFFMAN Oct 23, 2022 11:09
[2022-10-23] MEDS ORDERED: ONDANSETRON 4 MG/2 ML (SDV) Z0FRAN IVP ONE (11:15)
[2022-10-23 11:34] LABS: BASOPHILS # (AUTO) 0.1 10^3/uL (0.0-0.1); BASOPHILS % (AUTO) 1 % (0-10); EOSINOPHILS # (AUTO) 0.1 10^3/uL (0.0-0.3); EOSINOPHILS % (AUTO) 1 % (0-10); HEMATOCRIT 35 % (35-52); HEMOGLOBIN 11.3 g/dL (11.5-16.0); LYMPHOCYTES # (AUTO) 2.7 10^3/uL (1.0-4.0); LYMPHOCYTES % (AUTO) 26 % (12-44); MEAN CORPUSCULAR HEMOGLOBIN 30 pg (25-34); MEAN CORPUSCULAR HGB CONC 33 g/dL (32-36); MEAN CORPUSCULAR VOLUME 92 fL (80-99); MEAN PLATELET VOLUME 10.3 fL (9.0-12.2); MONOCYTES # (AUTO) 0.8 10^3/uL (0.0-1.0); MONOCYTES % (AUTO) 8 % (0-12); NEUTROPHILS # (AUTO) 6.6 10^3/uL (1.8-7.8); NEUTROPHILS % (AUTO) 64 % (42-75); PLATELET COUNT 380 10^3/uL (130-400); WHITE BLOOD COUNT 10.4 10^3/uL (4.3-11.0)
[2022-10-23 11:44] LABS: ALBUMIN 3.8 GM/DL (3.2-4.5); POTASSIUM 4.5 MMOL/L (3.6-5.0)
[2022-10-23 11:45] LABS: CALCIUM 9.3 MG/DL (8.5-10.1)
[2022-10-23 11:47] LABS: TOTAL PROTEIN 6.8 GM/DL (6.4-8.2)
[2022-10-23 11:48] LABS: BILIRUBIN,TOTAL 0.3 MG/DL (0.1-1.0)
[2022-10-23 11:50] LABS: CREATININE SERUM 1.77 MG/DL (0.60-1.30)
[2022-10-23 11:53] LABS: MAGNESIUM 1.7 MG/DL (1.6-2.4)
--- NOTE | 2022-10-23 12:15 | Diagnostic Imaging Report ---
INDICATION: Pain, nausea. FINDINGS: Lungs are clear. No failure, effusion, or pneumothorax. IMPRESSION: No acute-appearing abnormality. Dictated by: Dictated on workstation # [id number]
--- NOTE | 2022-10-23 12:31 | Diagnostic Imaging Report ---
PROCEDURE: CT abdomen and pelvis without contrast. TECHNIQUE: Multiple contiguous axial images were obtained through the abdomen and pelvis without the use of intravenous contrast. Auto Exposure Controls were utilized during the CT exam to meet ALARA standards for radiation dose reduction. DATE: October 23, 2022. COMPARISON: CT abdomen pelvis May 06, 2019. INDICATION: 82-year-old female, nausea and diarrhea. FINDINGS: There are limitations for evaluation of the abdominal organs, neoplastic processes, abscess, and limited evaluation of the vasculature relating to the lack of intravenous contrast. There is very mild atelectasis in the lung bases. The heart is not enlarged. There is no identified pericardial effusion. The liver is unremarkable in size and contour. The gallbladder is surgically absent. There is no biliary ductal dilation. Noncontrast assessment of the pancreas is unremarkable. The spleen is not enlarged. There is a 9 mm low-attenuation lesion in the spleen on axial image 36 which is too small to characterize. The adrenal glands are unremarkable. There is nonspecific perinephric stranding bilaterally. Noncontrast evaluation of the renal parenchyma is unremarkable. There is no identified renal or ureteral stone. There is no hydronephrosis. Urinary bladder is unremarkable. There are sutures at the level of the distal sigmoid colon. There are sutures in the region of the cecum. The appendix is not identified. There is a fat-containing right anterior abdominal wall hernia. There is an additional midline anterior abdominal wall hernia more superiorly located on axial image 62 and adjacent sequential images. There is rectus muscle diastases. There is no free intraperitoneal air. There is no identified drainable fluid collection. There is no free fluid in the abdomen or pelvis. There are atherosclerotic calcifications. There is no identified abnormally enlarged lymph node in the abdomen or pelvis which meets CT size criteria for adenopathy. There are remote prior fractures of the inferior and superior pubic rami bilaterally. There is a right hip prosthesis. There are multilevel degenerative changes of the spine. There is grade 1 anterolisthesis of L4 on L5. There is a compression deformity of L1 with approximately 30% height loss and retropulsion of 2 mm. This is new since June 05, 2019. IMPRESSION: CT ABDOMEN AND PELVIS. 1. New compression deformity of L1 with 30% height loss and retropulsion of 2 mm without associated spinal stenosis since May 2019. Correlation for focal pain at this site may be of benefit. 2. Anterior abdominal wall hernias without complication. 3. No identified acute abnormality in the abdomen or pelvis. Dictated by: Dictated on workstation # [id number]
[2022-10-23 12:55] LABS: BILIRUBIN,URINE NEGATIVE (NEGATIVE); CLARITY,URINE CLOUDY; COLOR,URINE YELLOW; GLUCOSE, URINE (UA) NEGATIVE (NEGATIVE); KETONES,URINE NEGATIVE (NEGATIVE); LEUKOCYTE ESTERASE ,URINE 1+ (NEGATIVE); NITRITE,URINE POSITIVE (NEGATIVE); PROTEIN,URINE 2+ (NEGATIVE)
[2022-10-23 13:29] LABS: BACTERIA,URINE LARGE /HPF; WBC,URINE 25-50 /HPF
[2022-10-23] MEDS ORDERED: dilTIAZem DRIP PRE-MIX 125 ML IV STA (13:53)
[2022-10-23] MEDS ORDERED: cefTRIAXone 1 GM PRE-MIX 50 ML IV STA (13:53)
[2022-10-23] MEDS ORDERED: ONDANSETRON 4 MG/2 ML (SDV) Z0FRAN ONE (14:13)
[2022-10-23] MEDS ORDERED: polyethylene glycoL POWDER 17 GM (MIRALAX) PACK PO PRN (16:30)
[2022-10-23] MEDS ORDERED: ONDANSETRON 4 MG/2 ML (SDV) Z0FRAN IV PRN (16:30)
[2022-10-23] MEDS ORDERED: CALCIUM CARBONATE 500 MG (TUMS) TAB.CHEW PO PRN (16:30)
[2022-10-23] MEDS: dilTIAZem DRIP PRE-MIX 125 ML IV SCH ×2 (17:00→23:50)
--- NOTE | 2022-10-23 17:35 | Tele-ICU Consult ---
Progress Note 82 y/o female presents to ED with abdominal pain and nausea and found to be in AF/RVR Cardizem drip started Abdominal CT: shows no evidence of ishemic bowel or free air no contrast used for scan WBC: 10.4 video shows patient sleeping and comfortable IMP: AF/RVR and abd pain PLAN: admit to ICU Cardizem drip Focused Exam Height, Weight, BMI Height: 5'2.00" Weight: 200lbs. 0.0oz. [id number]; 40.00 BMI Method: Labs Laboratory Tests 10/23/22 11:20 Results Results/Procedures Labs Laboratory Tests 10/23/22 11:20 Patient resulted labs reviewed. Results Labs Labs Laboratory Tests 10/23/22 11:20: White Blood Count 10.4, Red Blood Count 3.74L, Hemoglobin 11.3L, Hematocrit 35, Mean Corpuscular Volume 92, Mean Corpuscular Hemoglobin 30, Mean Corpuscular Hemoglobin Concent 33, Red Cell Distribution Width 12.5, Platelet Count 380, Mean Platelet Volume 10.3, Immature Granulocyte % (Auto) 1, Neutrophils (%) (Auto) 64, Lymphocytes (%) (Auto) 26, Monocytes (%) (Auto) 8, Eosinophils (%) (Auto) 1, Basophils (%) (Auto) 1, Neutrophils # (Auto) 6.6, Lymphocytes # (Auto) 2.7, Monocytes # (Auto) 0.8, Eosinophils # (Auto) 0.1, Basophils # (Auto) 0.1, Immature Granulocyte # (Auto) 0.2H, Sodium Level 140, Potassium Level 4.5, Chloride Level 110H, Carbon Dioxide Level 18L, Anion Gap 12, Blood Urea Nitrogen 36H, Creatinine 1.77H, Estimat Glomerular Filtration Rate 28, BUN/Creatinine Ratio 20, Glucose Level 122H, Calcium Level 9.3, Corrected Calcium 9.5, Magnesium Level 1.7, Total Bilirubin 0.3, Aspartate Amino Transf (AST/SGOT) 24, Alanine Aminotransferase (ALT/SGPT) 20, Alkaline Phosphatase 117, C-Reactive Protein High Sensitivity 0.70H, Total Protein 6.8, Albumin 3.8, Lipase 19 10/23/22 12:40: Urine Color YELLOW, Urine Clarity CLOUDY, Urine pH 6.0, Urine Specific [place] 1.025H, Urine Protein 2+H, Urine Glucose (UA) NEGATIVE, Urine Ketones NEGATIVE, Urine Nitrite POSITIVEH, Urine Bilirubin NEGATIVE, Urine Urobilinogen 0.2, Urine Leukocyte Esterase 1+H, Urine RBC (Auto) TRACE-IH, Urine RBC 5-10H, Urine WBC 25-50H, Urine Squamous Epithelial Cells 5-10, Urine Crystals NONE, Urine Bacteria LARGEH, Urine Casts NONE, Urine Mucus MODERATEH, Urine Culture Indicated YES ALEX MORENO MD Oct 23, 2022 17:35
[2022-10-23 18:12] VITALS: BP 154/116
[2022-10-23] MEDS ORDERED: RT-ALBUTEROL SULF 2.5 MG/3 ML PRE-MIX VIAL INH PRN (18:30)
[2022-10-23] MEDS: NS IV 1000 ML 1,000 ML IV SCH (19:00)
[2022-10-23] MEDS ORDERED: ENOXAPARIN 100 MG/1 ML (LOVENOX) SYR SC SCH (21:00)
[2022-10-23] MEDS: inSUlin ASPART (NovoLOG) 1 UNIT/0.01 ML (CHARGE PER UNIT) SC SCH (21:17)
[2022-10-23] MEDS: MELATONIN 3 MG TABLET PO PRN (22:05)
[2022-10-23 23:50] VITALS: BP 170/87
[2022-10-24] MEDS: NS IV 1000 ML 1,000 ML IV SCH ×3 (00:30→17:00)
[2022-10-24 04:28] LABS: HEMATOCRIT 32 % (35-52); HEMOGLOBIN 10.3 g/dL (11.5-16.0); MEAN CORPUSCULAR HEMOGLOBIN 30 pg (25-34); MEAN CORPUSCULAR HGB CONC 32 g/dL (32-36); MEAN CORPUSCULAR VOLUME 94 fL (80-99); MEAN PLATELET VOLUME 10.7 fL (9.0-12.2); PLATELET COUNT 332 10^3/uL (130-400); WHITE BLOOD COUNT 11.3 10^3/uL (4.3-11.0)
[2022-10-24 04:51] LABS: CREATININE SERUM 1.61 MG/DL (0.60-1.30)
[2022-10-24] MEDS: inSUlin ASPART (NovoLOG) 1 UNIT/0.01 ML (CHARGE PER UNIT) SC SCH ×2 (05:02→11:23)
--- NOTE | 2022-10-24 09:26 | Consultation-Cardiology ---
HPI-Cardiology Cardiology Consultation: Date of Consultation 10/24/22 Time Seen by a Provider: 09:00 Date of Admission 10-23-22 Attending Physician Cody Gómez MD Admitting Physician Admitting Physician: Aleta Lanza MD Attending Physician: Katia Carcamo MD Consulting Physician Eduin Reyes MD HPI: Chief Complaint: A-fib with RVR Ms. Watts is an 82 yr old female who has been admitted to ICU 2 from the ED with a-fib with RVR. She states her primary adobe ball mixer is Dr. Zhou at [facility] in [place], [place]. She reports she last saw him approx 6 months ago. She states she has had n/v/d for the last week and has not taken any of her medications for the last week for that reason. She denies any c/o CP, palpitations, syncope, near syncope. She reports she has chronic bilat LE swelling which is unchanged in the recent past. She states her n/v/d have improved. Review of Systems-Cardiology Review of Systems Constitutional: As described under HPI Eyes: No vision change Ears/Nose/Throat: No epistaxis, No recent hearing loss Respiratory: As described under HPI Cardiovascular: As described under HPI Gastrointestinal: As described under HPI Genitourinary: No dysuria, No hematuria Musculoskeletal: no symptoms reported Skin: No rash on exposed areas, No ulcerations on exposed areas Psychiatric/Neurological: anxiety; No seizure, No focal weakness, No syncope Hematologic: No bleeding abnormalities All Other Systems Reviewed Negative Unless Noted: Yes UAI-Xzebdo-Hitzyp Hx Patient Social History 2nd Hand Smoke Exposure: No Have you traveled recently?: No Alcohol Use?: No Pt feels they are or have been: No Immunizations Up To Date Tetanus Booster (TDap): Unknown Date of Pneumonia Vaccine: Aug 28, 2013 Date of Influenza Vaccine: Jun 05, 2019 Past Medical History PMH As described under Assessment. Family Medical History Family Medical History: No reported family h/o CAD Allergies and Home Medications Allergies Coded Allergies: Sulfa (Sulfonamide Antibiotics) (Verified Allergy, Mild, ITCHING/SWOLLEN HANDS, 04/06/20) Patient Home Medication List Amitriptyline HCl (Amitriptyline HCl) 10 Mg Tablet, 10 MG PO HS, (Reported) Entered as Reported by: BIBI STEELE on 06/27/19 8484 Aspirin (Aspirin EC) 81 Mg Tablet.dr, 81 MG PO BID, (Reported) Entered as Reported by: OLIVA VALIENTE on 09/11/19 0821 Bumetanide (Bumetanide) 1 Mg Tablet, 1 MG PO Q72H PRN for FLUID RETENTION, (Reported) Entered as Reported by: OLIVA VALIENTE on 03/04/21 1507 Cefdinir (Cefdinir) 300 Mg Capsule, 300 MG PO BID Prescribed by: CODY GÓMEZ on 03/08/21 1320 Fentanyl (Fentanyl Patch 50 MCG) 1 Each Patch.td72, 50 MCG TD Q72H Prescribed by: CODY GÓMEZ on 03/08/21 1320 Gabapentin (Neurontin) 300 Mg Capsule, 300 MG PO 1200,1500,2000, (Reported) Entered as Reported by: OLIVA VALIENTE on 03/04/21 1507 Hydrocodone/Acetaminophen (Hydrocodone-Acetamin 5-325 mg) 1 Each Tablet, 1-2 TAB PO Q8H PRN for PAIN-MODERATE (5-7), (Reported) Entered as Reported by: OLIVA VALIENTE on 03/04/21 1507 Latanoprost (Xalatan) 2.5 Ml Drops, 1 DROPS OU HS, (Reported) Entered as Reported by: OLIVA VALIENTE on 03/04/21 1507 Levothyroxine Sodium (Levothyroxine Sodium) 50 Mcg Tablet, 50 MCG PO DAILY, (Reported) Entered as Reported by: OLIVA VALIENTE on 03/04/21 1507 Lisinopril (Lisinopril) 20 Mg Tablet, 40 MG PO DAILY, (Reported) Entered as Reported by: OLIVA VALIENTE on 03/04/21 150 Metoprolol Succinate (Metoprolol Succinate) 25 Mg Tab.er.24h, 25 MG PO 1500, (Reported) Entered as Reported by: OLIVA VALIENTE on 09/11/19 0821 Ondansetron (Ondansetron Odt) 4 Mg Tab.rapdis, 4 MG PO Q6H PRN for NAUSEA/VOMITING Prescribed by: CATRACHITA BYRD on 03/14/21 2252 Ondansetron (Ondansetron Odt) 4 Mg Tab.rapdis, 4 MG PO Q6H PRN for NAUSEA/VOMITING Prescribed by: SOUMYA BROWER on 10/21/22 1249 Oxycodone HCl (Oxycodone HCl) 5 Mg Tablet, 5 MG PO Q4H PRN for PAIN-SEVERE (8- 10) Prescribed by: CODY GÓMEZ on 03/08/21 1323 Rivaroxaban (Xarelto Tablet) 15 Mg Tablet, 15 MG PO DAILY@0800 Prescribed by: CODY GÓMEZ on 03/08/21 1320 Simvastatin (Simvastatin) 40 Mg Tablet, 40 MG PO HS, (Reported) Entered as Reported by: GIULIA GRAYSON on 05/27/19 1210 Physical Exam-Cardiology Physical Exam Vital Signs/I&O 10/24/22 10/24/22 10/24/22 10/24/22 02:00 03:11 04:00 04:00 Temp 36.9 Pulse 105 94 B/P (MAP) 126/60 (94) Pulse Ox 95 94 99 O2 Delivery Room Air Room Air Room Air 10/24/22 10/24/22 10/24/22 10/24/22 04:00 05:00 06:15 07:00 Pulse 87 78 96 80 B/P (MAP) 152/65 (94) 148/95 (124) 163/79 (107) 164/82 (109) Pulse Ox 96 94 97 95 O2 Delivery Room Air Room Air Room Air Room Air 10/24/22 10/24/22 10/24/22 10/24/22 07:25 08:00 08:00 08:00 Temp 36.5 Pulse 96 111 B/P (MAP) 157/89 (111) Pulse Ox 97 95 O2 Delivery Room Air Room Air 10/24/22 10/24/22 10/24/22 10/24/22 09:00 10:00 11:00 12:00 Pulse 76 79 76 64 B/P (MAP) 149/75 (99) 143/65 (91) 139/75 (96) 129/80 (96) Pulse Ox 99 98 98 99 O2 Delivery Room Air Room Air Room Air Room Air 10/24/22 10/24/22 10/24/22 12:00 12:17 13:00 Temp 36.5 Pulse 70 80 B/P (MAP) 127/107 (114) Pulse Ox 98 O2 Delivery Room Air 10/24/22 00:00 Intake Total 1375 ml Output Total 100 ml Balance 1275 ml Capillary Refill : Less Than 3 Seconds Constitutional: AAO x 3, well-developed, well-nourished HEENT: PERRL, hearing is well preserved, oral hygience is good Neck: No carotid bruit; carotid pulses are 2 + bilaterally Respiratory: No accessory muscle use, No respiratory distress; chest expansion is symmetric, chest is bilaterally symmetric, lungs clear to auscultation Cardiovascular: irregularly irregular; No JVD; S1 and S2 Gastrointestinal: soft, round; No guarding; audible bowel sounds Extremities: no lower extremity edema bilateral Neurologic/Psychiatric: grossly intact (moves all extremities) Skin: other (RLE with redness and flaking, dry skin) Data Review Labs Laboratory Tests 10/24/22 03:44: White Blood Count 11.3H, Red Blood Count 3.41L, Hemoglobin 10.3L, Hematocrit 32L , Mean Corpuscular Volume 94, Mean Corpuscular Hemoglobin 30, Mean Corpuscular H emoglobin Concent 32, Red Cell Distribution Width 12.6, Platelet Count 332, Mean Platelet Volume 10.7, Sodium Level 141, Potassium Level 4.0, Chloride Level 113H , Carbon Dioxide Level 16L, Anion Gap 12, Blood Urea Nitrogen 32H, Creatinine 1.61H, Estimat Glomerular Filtration Rate 31, BUN/Creatinine Ratio 20, Glucose Level 108H, Calcium Level 9.0 10/24/22 10:22: Glucometer 99 Microbiology 10/23/22 Urine Culture - Preliminary, Resulted Probable Klebsiella/Enterobact Radiology NAME: ODALIS WATTS [facility] REC#: [id number] PT STATUS: REG ER : 1940 PHYSICIAN: JOSE HUFFMAN ADMIT DATE: 10/23/22/ER Signed Date of Exam:10/23/22 CT ABDOMEN/PELVIS WO PROCEDURE: CT abdomen and pelvis without contrast. TECHNIQUE: Multiple contiguous axial images were obtained through the abdomen and pelvis without the use of intravenous contrast. Auto Exposure Controls were utilized during the CT exam to meet ALARA standards for radiation dose reduction. DATE: October 23, 2022. COMPARISON: CT abdomen pelvis May 06, 2019. INDICATION: 82-year-old female, nausea and diarrhea. FINDINGS: There are limitations for evaluation of the abdominal organs, neoplastic processes, abscess, and limited evaluation of the vasculature relating to the lack of intravenous contrast. There is very mild atelectasis in the lung bases. The heart is not enlarged. There is no identified pericardial effusion. The liver is unremarkable in size and contour. The gallbladder is surgically absent. There is no biliary ductal dilation. Noncontrast assessment of the pancreas is unremarkable. The spleen is not enlarged. There is a 9 mm low-attenuation lesion in the spleen on axial image 36 which is too small to characterize. The adrenal glands are unremarkable. There is nonspecific perinephric stranding bilaterally. Noncontrast evaluation of the renal parenchyma is unremarkable. There is no identified renal or ureteral stone. There is no hydronephrosis. Urinary bladder is unremarkable. There are sutures at the level of the distal sigmoid colon. There are sutures in the region of the cecum. The appendix is not identified. There is a fat-containing right anterior abdominal wall hernia. There is an additional midline anterior abdominal wall hernia more superiorly located on axial image 62 and adjacent sequential images. There is rectus muscle diastases. There is no free intraperitoneal air. There is no identified drainable fluid collection. There is no free fluid in the abdomen or pelvis. There are atherosclerotic calcifications. There is no identified abnormally enlarged lymph node in the abdomen or pelvis which meets CT size criteria for adenopathy. There are remote prior fractures of the inferior and superior pubic rami bilaterally. There is a right hip prosthesis. There are multilevel degenerative changes of the spine. There is grade 1 anterolisthesis of L4 on L5. There is a compression deformity of L1 with approximately 30% height loss and retropulsion of 2 mm. This is new since June 05, 2019. IMPRESSION: CT ABDOMEN AND PELVIS. 1. New compression deformity of L1 with 30% height loss and retropulsion of 2 mm without associated spinal stenosis since May 2019. Correlation for focal pain at this site may be of benefit. 2. Anterior abdominal wall hernias without complication. 3. No identified acute abnormality in the abdomen or pelvis. Dictated by: Dictated on workstation # [id number] Dict: 10/23/22 1204 Trans: 10/23/22 1249 [id number] Interpreted by: AUDIE HATHAWAY MD Electronically signed by: AUDIE HATHAWAY MD 10/23/22 1249 NAME: STEFANIEODALIS [facility] REC#: [id number] PT STATUS: REG ER : 1940 PHYSICIAN: JOSE HUFFMAN ADMIT DATE: 10/23/22/ER Signed Date of Exam:10/23/22 CHEST 1 VIEW, AP/PA ONLY INDICATION: Pain, nausea. FINDINGS: Lungs are clear. No failure, effusion, or pneumothorax. IMPRESSION: No acute-appearing abnormality. Dictated by: Dictated on workstation # [id number] Dict: 10/23/22 1205 Trans: 10/23/22 1215 [id number] Interpreted by: ANDRES CHAUDHARY Electronically signed by: ANDRES CHAUDHARY 10/23/22 1215 ECG Impression ECG Initial ECG Impression: Atrial Fibrillation A/P-Cardiology Assessment/Admission Diagnosis PAF - OAC with Xarelto as out pt - currently rate controlled on Cardizem gtt Diastolic CHF - Echocardiogram of 04-11-[address] Salgado showed LVEF 55-65%. Grade 2 diastolic dysfunction. PASP 15-20 mmHg - takes Bumex as an out pt CAD - Cardiac cath of 09-11-[address] Hills showed: 50 percent stenosis in the mid LAD, FFR 0.83 after Adenosine drip. Otherwise mild to moderate coronary artery disease nonobstructive disease. Normal left ventricular end-diastolic pressure - take ASA 81mg daily as an out pt CKD 3 - continue to monitor HLD - takes simvastatin as an out pt HTN - takes Toprol XL and Lisinopril as an out pt GERD Peripheral neuropathy - takes gabapentin as an out pt Hypothyroidism - take synthroid as out pt N/V/D - x1 week of undetermined etiology - reports improvement - management per medical services H/O cholecystectomy and appendectomy Discussion and Recomendations PAF - resume OAC with Xarelto (15mg daily) d/t CKD - rate controlled - start Cardizem CD HTN - uncontrolled - restart home dose of BB (Toprol XL) CKD 3 - monitor lab closely Chronic diastolic CHF - treat with home dose of diuretics CAD - continue ASA and statin (home dose) Management of n/v/d - per medical services Advised compliance with medications Monitor lab Replace electrolytes as indicated JEAN CARLOS WEBSTER Oct 24, 2022 09:26
--- NOTE | 2022-10-24 09:37 | Physical Therapy Evaluation ---
PT Evaluation-General Medical Diagnosis Admission Date Oct 23, 2022 at 16:43 Medical Diagnosis: A-fib with RVR Onset Date: Oct 23, 2022 Therapy Diagnosis Therapy Diagnosis: debility/weakness Height/Weight Height (Feet): 5 Height (Inches): 2.00 Weight (Pounds): 200 Weight (Ounces): 0.0 Precautions Precautions/Isolations: Fall Prevention, Standard Precautions Referral Physician: Pool Reason for Referral: Evaluation/Treatment Medical History Pertinent Medical History: Diverticulitis, Heart Failure, HTN, Renal Insufficiency Current History ER secondary to abdominal pain and nausea Reviewed History: Yes Social History Home: Single Level Current Living Status: Children Entry Into Home: Level Entry Prior Prior Level of Function SCALE: Activities may be completed with or without assistive devices. 2-Cyisnrmmuv-ybqnbos completes the activity by him/herself with no assistance from a helper. 5-Set-up or Clean-up Assistance-helper sets up or cleans up; patient completes activity. [place] assists only prior to or following the activity. 4-Supervision or Touching Assistance-helper provides verbal cues and/or touching/steadying and/or contact guard assistance as patient completes activity. Assistance may be provided throughout the activity or intermittently. 3-Partial/Moderate Assistance-helper does LESS THAN HALF the effort. [place] lifts, holds or supports trunk or limbs, but provides less than half the effort. 2-Substantial/Maximal Assistance-helper does MORE THAN HALF the effort. [place] lifts or holds trunk or limbs and provides more than half the effort. 7-Peffuaszc-hsefke does ALL the effort. Patient does none of the effort to complete the activity. Or, the assistance of 2 or more helpers is required for the patient to complete the activity. If activity was not attempted, code reason: 7-Patient Refused. 9-Not Applicable-not attempted and the patient did not perform the activity before the current illness, exacerbation or injury. 10-Not Attempted due to Environmental Limitations-(lack of equipment, weather restraints, etc.). 88-Not Attempted due to Medical Conditions or Safety Concerns. Bed Mobility: 6 Transfers (B,C,W/C): 6 Gait: 6 Indoor Mobility (Ambulation): Independent Prior Devices Use: Walker PT Evaluation-Current Subjective Patient agrees to PT. Objective Patient Orientation: Normal For Age Attachments: IV ROM/Strength ROM Lower Extremities bilateral LE WFL Strength Lower Extremities 4/5 grossly bilateral LE all planes Integumentary/Posture Bowel Incontinence: No Bladder Incontinence: No Posture WFL Neuromuscular (Tone, Coordination, Reflexes) grossly intact Sensory Vision: Functional Hearing: Impaired Transfers Lying to Sitting/Side of Bed(Q: 4 Sit to Stand (QC): 4 Chair/Fvq-at-Glkmc Xfer(QC): 4 Gait Mode of Locomotion: Walk Anticipated Mode of Locomotion: Walk Walk 10 feet (QC): 4 Walk 50 ft with 2 Turns(QC): 4 Distance: 50' Gait Assistive Device: FWW Comments/Gait Description safe and functional with no deviation Balance Sitting Static: Normal Sitting Dynamic: Normal Standing Static: Normal Standing Dynamic: Normal Assessment/Needs Patient will be seen short term by skilled PT to address functional strength and mobility to improve current LOF to safely return to home with family at maximum LOF. Rehab Potential: Fair PT Cheese Specialist Goals Care Home Goals PT Care Home Goals Time Frame: Nov 05, 2022 Roll Left & Right (QC): 6 Sit to Lying (QC): 6 Lying-Sitting on Side/Bed(QC): 6 Sit to Stand (QC): 6 Chair/Nxf-ts-Qkofa Xfer(QC): 6 Toilet Transfer (QC): 6 Walk 10 feet (QC): 6 Walk 50ft with 2 Turns (QC): 6 Walk 150 ft (QC): 6 PT Plan Problem List Problem List: Activity Tolerance, Functional Strength Treatment/Plan Treatment Plan: Continue Plan of Care Treatment Plan: Bed Mobility, Education, Functional Activity [place], Functional Strength, Gait, Safety, Therapeutic Exercise, Transfers Treatment Duration: Nov 05, 2022 Frequency: 6 times per week Estimated Hrs Per Day: .25 hour per day Patient and/or Family Agrees t: Yes Time Time In: 745 Time Out: 800 DATE: Oct 24, 2022 Total Billed Treatment Time: 15 Total Billed Treatment 1 visit EVMod 15 min RYLAND APONTE PT Oct 24, 2022 09:37
[2022-10-24] MEDS ORDERED: meTOproloL SUCCINATE 50 MG (TOPROL XL) TAB PO NR (10:00)
[2022-10-24] MEDS ORDERED: ASPIRIN 81 MG CHEW (CHILDREN'S ASA) PO NR (10:00)
[2022-10-24] MEDS ORDERED: RIVAROXABAN 15 MG TABLET (XARELTO) PO NR (11:30)
--- NOTE | 2022-10-24 12:23 | Tele-ICU Progress Note ---
Subjective Date Seen by a Provider: Oct 24, 2022 Time Seen by a Provider: 12:21 Subjective/Events-last exam (Tele-ICU Physician , PROGRESS NOTE) Available chart/ vitals / labs / Images reviewed H&P is from ER notes Patient's information available about PMH, allergy reviewed in EMR. ROS as per chart and RN report Video assessment done using teleICU camera, rest of exam as per RN Discussed with RN. She is a 82-year-old female with past medical history of hypertension, hypothyroidism, and chronic pain syndrome as well as a chronic atrial fibrillation apparently has been having nausea vomiting and diarrhea for about a week and she was not taking her pills. Now she presented with the nausea and vomiting and abdominal pain. She is found to have a urinary tract infection as well as atrial fibrillation with rapid ventricular rate. She is admitted to the intensive care unit and she is started on IV antibiotics and Cardizem drip. Cardiology consultation has been requested and seen by the load builder. She is started back on oral medications including metoprolol and Xarelto in addition to that to oral Cardizem IV Cardizem is being turned off. At rest she is in no acute distress currently denies any significant abdominal pain. Diarrhea also improving. Impression 1. Atrial fibrillation with rapid ventricular rate 2. Nausea vomiting and diarrhea probably due to urinary tract infection 3. L1 compression fracture new since 2019 and she has seen apparently a neurologist and a pain specialist. 4. Chronic pain syndrome 5. Anterior abdominal wall hernia without complication 6. Urinary tract infection. Recommendations 1. Atrial fibrillation management per load builder 2. Continue Rocephin 3. DVT prophylaxis 4. She is advised to follow-up with her neurologist as well as pain specialist as an outpatient. Coordination of care with bedside consultants and primary care physician Critical care time spent 16 minutes Sepsis Event Evaluation Height, Weight, BMI Height: 5'2.00" Weight: 200lbs. 0.0oz. 90.572400iv; 42.73 BMI Method: Exam Exam Patient acknowledged, consented, and participated in this virtual visit which was conducted using real time audio/video Vital Signs Date Time Temp Pulse Resp B/P (MAP) Pulse Ox O2 Delivery O2 Flow Rate FiO2 10/24/22 12:00 64 129/80 (96) 99 Room Air 10/24/22 11:00 76 139/75 (96) 98 Room Air 10/24/22 10:00 79 143/65 (91) 98 Room Air 10/24/22 09:00 76 149/75 (99) 99 Room Air 10/24/22 08:00 111 157/89 (111) 95 Room Air 10/24/22 08:00 36.5 10/24/22 07:25 96 10/24/22 07:00 80 164/82 (109) 95 Room Air 10/24/22 06:15 96 163/79 (107) 97 Room Air 10/24/22 05:00 78 148/95 (124) 94 Room Air 10/24/22 04:00 87 152/65 (94) 96 Room Air 10/24/22 04:00 99 Room Air 10/24/22 04:00 36.9 10/24/22 03:11 94 126/60 (94) 94 Room Air 10/24/22 02:00 105 95 Room Air 10/24/22 01:00 84 10/24/22 01:00 84 112/58 (72) 95 Room Air 10/24/22 00:15 87 140/64 (78) 97 Room Air 10/24/22 00:00 37.2 10/24/22 00:00 94 Room Air 10/24/22 00:00 93 160/81 (102) 97 Room Air 10/23/22 23:50 95 170/87 10/23/22 23:00 90 145/72 (101) 97 Room Air 10/23/22 22:15 86 149/85 (106) 97 Room Air 10/23/22 22:05 89 177/95 (137) 98 Room Air 10/23/22 21:45 96 159/79 (102) 97 Room Air 10/23/22 21:30 81 155/78 (103) 98 Room Air 10/23/22 21:15 93 150/81 (109) 96 Room Air 10/23/22 21:00 85 138/83 (96) 97 Room Air 10/23/22 20:45 87 140/81 (120) 97 Room Air 10/23/22 20:30 88 132/86 (119) 98 Room Air 10/23/22 20:15 105 131/99 (114) 98 Room Air 10/23/22 20:00 94 167/78 (100) 97 Room Air 10/23/22 20:00 98 Room Air 10/23/22 20:00 37.4 10/23/22 19:45 107 146/84 (107) 97 Room Air 10/23/22 19:30 99 166/95 (117) 98 Room Air 10/23/22 19:15 93 157/77 (107) 97 Room Air 10/23/22 19:00 96 10/23/22 19:00 104 175/84 (98) 98 Room Air 10/23/22 18:22 97 Room Air 10/23/22 18:12 36.1 124 96 21 10/23/22 17:15 120 10/23/22 17:00 102 10/23/22 16:40 36.4 105 20 175/87 99 Room Air 10/23/22 14:18 116 149/119 I & O 10/24/22 07:00 Intake Total 1525 ml Output Total 300 ml Balance 1225 ml Height & Weight Height: 5'2.00" Weight: 200lbs. 0.0oz. 90.435715xs; 42.73 BMI Method: General Appearance: No Apparent Distress, Chronically ill Capillary Refill: Less Than 3 Seconds Gastrointestinal: normal bowel sounds, soft, tenderness (Generalized tenderness) Other comments PE PER RN Results Lab Laboratory Tests 10/23/22 11:20 10/24/22 03:44 Assessment/Plan Assessment/Plan as above Critical Care: Critically Ill Patient Time spent with patient (mins): 16 CATHY LAN MD Oct 24, 2022 12:23
--- NOTE | 2022-10-24 12:44 | Consultation-Cardiology ---
HPI-Cardiology Cardiology Consultation: Date of Consultation 10/24/22 Time Seen by a Provider: 09:30 Date of Admission Attending Physician Cody Herman MD Admitting Physician Admitting Physician: Aleta Lanza MD Attending Physician: Katia Carcamo MD Consulting Physician NAVIN SALAS MD, MA, FACP, FACC, FSCAI, CCDS Physician requesting consult: Dr Lanza HPI: Chief Complaint: A-fib with RVR Ms. Wolff is an 82 yr old female who has been admitted to ICU 2 from the ED with a-fib with RVR. 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 Zhou at [facility] in [place], [place]. She reports she last saw him approx 6 months ago. She states she has had n/v/d for the last week and has not taken any of her medications for the last week for that reason. She denies any c/o CP, palpitations, syncope, near syncope. She reports she has chronic bilat LE swelling which is unchanged in the recent past. She states her n/v/d have improved. Review of Systems-Cardiology Review of Systems Constitutional: As described under HPI Eyes: No vision change Ears/Nose/Throat: No epistaxis, No recent hearing loss Respiratory: As described under HPI Cardiovascular: As described under HPI Gastrointestinal: As described under HPI Genitourinary: No dysuria, No hematuria Musculoskeletal: no symptoms reported Skin: No rash on exposed areas, No ulcerations on exposed areas Psychiatric/Neurological: anxiety; No seizure, No focal weakness, No syncope Hematologic: No bleeding abnormalities All Other Systems Reviewed Negative Unless Noted: Yes FPT-Jlnumo-Pnvklj Hx Patient Social History 2nd Hand Smoke Exposure: No Have you traveled recently?: No Alcohol Use?: No Pt feels they are or have been: No Immunizations Up To Date Tetanus Booster (TDap): Unknown Date of Pneumonia Vaccine: Aug 28, 2013 Date of Influenza Vaccine: Jun 05, 2019 Past Medical History PMH As described under Assessment. Family Medical History Family Medical History: No reported family h/o CAD Allergies and Home Medications Allergies Coded Allergies: Sulfa (Sulfonamide Antibiotics) (Verified Allergy, Mild, ITCHING/SWOLLEN HANDS, 04/06/20) Patient Home Medication List Home Medication List Reviewed: Yes Amitriptyline HCl (Amitriptyline HCl) 10 Mg Tablet, 10 MG PO HS, (Reported) Entered as Reported by: BIBI STEELE on 06/27/19 1625 Aspirin (Aspirin EC) 81 Mg Tablet.dr, 81 MG PO BID, (Reported) Entered as Reported by: OLIVA VALIENTE on 09/11/19 0821 Bumetanide (Bumetanide) 1 Mg Tablet, 1 MG PO Q72H PRN for FLUID RETENTION, (Reported) Entered as Reported by: OLIVA VALIENTE on 03/04/21 1507 Cefdinir (Cefdinir) 300 Mg Capsule, 300 MG PO BID Prescribed by: CODY HERMAN on 03/08/21 1320 Fentanyl (Fentanyl Patch 50 MCG) 1 Each Patch.td72, 50 MCG TD Q72H Prescribed by: CODY HERMAN on 03/08/21 1320 Gabapentin (Neurontin) 300 Mg Capsule, 300 MG PO 1200,1500,2000, (Reported) Entered as Reported by: OLIVA VALIENTE on 03/04/21 1507 Hydrocodone/Acetaminophen (Hydrocodone-Acetamin 5-325 mg) 1 Each Tablet, 1-2 TAB PO Q8H PRN for PAIN-MODERATE (5-7), (Reported) Entered as Reported by: OLIVA VALIENTE on 03/04/21 1507 Latanoprost (Xalatan) 2.5 Ml Drops, 1 DROPS OU HS, (Reported) Entered as Reported by: OLIVA VALIENTE on 03/04/21 150 Levothyroxine Sodium (Levothyroxine Sodium) 50 Mcg Tablet, 50 MCG PO DAILY, (Reported) Entered as Reported by: OLIVA VALIENTE on 03/04/21 150 Lisinopril (Lisinopril) 20 Mg Tablet, 40 MG PO DAILY, (Reported) Entered as Reported by: OLIVA VALIENTE on 03/04/21 1507 Metoprolol Succinate (Metoprolol Succinate) 25 Mg Tab.er.24h, 25 MG PO 1500, (Reported) Entered as Reported by: OLIVA VALIENTE on 09/11/19 0821 Ondansetron (Ondansetron Odt) 4 Mg Tab.rapdis, 4 MG PO Q6H PRN for NAUSEA/VOMITING Prescribed by: CATRACHITA BYRD on 03/14/21 834 Ondansetron (Ondansetron Odt) 4 Mg Tab.rapdis, 4 MG PO Q6H PRN for NAUSEA/VOMITING Prescribed by: SOUMYA BROWER on 10/21/22 1249 Oxycodone HCl (Oxycodone HCl) 5 Mg Tablet, 5 MG PO Q4H PRN for PAIN-SEVERE (8- 10) Prescribed by: CODY HERMAN on 03/08/21 1323 Rivaroxaban (Xarelto Tablet) 15 Mg Tablet, 15 MG PO DAILY@0800 Prescribed by: CODY HERMAN on 03/08/21 1320 Simvastatin (Simvastatin) 40 Mg Tablet, 40 MG PO HS, (Reported) Entered as Reported by: GIULIA GRAYSON on 05/27/19 1210 Physical Exam-Cardiology Physical Exam Vital Signs/I&O 10/24/22 10/24/22 10/24/22 10/24/22 01:00 01:00 02:00 03:11 Pulse 84 84 105 94 B/P (MAP) 112/58 (72) 126/60 (94) Pulse Ox 95 95 94 O2 Delivery Room Air Room Air Room Air 10/24/22 10/24/22 10/24/22 10/24/22 04:00 04:00 04:00 05:00 Temp 36.9 Pulse 87 78 B/P (MAP) 152/65 (94) 148/95 (124) Pulse Ox 99 96 94 O2 Delivery Room Air Room Air Room Air 10/24/22 10/24/22 10/24/22 10/24/22 06:15 07:00 07:25 08:00 Pulse 96 80 96 B/P (MAP) 163/79 (107) 164/82 (109) Pulse Ox 97 95 97 O2 Delivery Room Air Room Air Room Air 10/24/22 10/24/22 10/24/22 10/24/22 08:00 08:00 09:00 10:00 Temp 36.5 Pulse 111 76 79 B/P (MAP) 157/89 (111) 149/75 (99) 143/65 (91) Pulse Ox 95 99 98 O2 Delivery Room Air Room Air Room Air 10/24/22 10/24/22 10/24/22 10/24/22 11:00 12:00 12:00 12:17 Temp 36.5 Pulse 76 64 70 B/P (MAP) 139/75 (96) 129/80 (96) Pulse Ox 98 99 O2 Delivery Room Air Room Air 10/24/22 00:00 Intake Total 1375 ml Output Total 100 ml Balance 1275 ml Capillary Refill : Less Than 3 Seconds Constitutional: AAO x 3, well-developed, well-nourished HEENT: PERRL, hearing is well preserved, oral hygience is good Neck: No carotid bruit; carotid pulses are 2 + bilaterally Respiratory: No accessory muscle use, No respiratory distress; chest expansion is symmetric, chest is bilaterally symmetric, lungs clear to auscultation Cardiovascular: irregularly irregular; No JVD; S1 and S2 Gastrointestinal: soft, round; No guarding; audible bowel sounds Extremities: no lower extremity edema bilateral Neurologic/Psychiatric: grossly intact (moves all extremities) Skin: other (RLE with redness and flaking, dry skin) Data Review Labs Laboratory Tests 10/24/22 03:44: White Blood Count 11.3H, Red Blood Count 3.41L, Hemoglobin 10.3L, Hematocrit 32L , Mean Corpuscular Volume 94, Mean Corpuscular Hemoglobin 30, Mean Corpuscular Hemoglobin Concent 32, Red Cell Distribution Width 12.6, Platelet Count 332, Mean Platelet Volume 10.7, Sodium Level 141, Potassium Level 4.0, Chloride Level 113H, Carbon Dioxide Level 16L, Anion Gap 12, Blood Urea Nitrogen 32H, Creatinine 1.61H, Estimat Glomerular Filtration Rate 31, BUN/Creatinine Ratio 20, Glucose Level 108H, Calcium Level 9.0 10/24/22 10:22: Glucometer 99 Microbiology 10/23/22 Urine Culture - Preliminary, Resulted Probable Klebsiella/Enterobact A/P-Cardiology Assessment/Admission Diagnosis PAF - OAC with Xarelto as out pt - currently rate controlled on Cardizem gtt Diastolic CHF - Echocardiogram of 04-11-[address] Salgado showed LVEF 55-65%. Grade 2 diastolic dysfunction. PASP 15-20 mmHg - takes Bumex as an out pt CAD - Cardiac cath of 09-11-[address] Hills showed: 50 percent stenosis in the mid LAD, FFR 0.83 after Adenosine drip. Otherwise mild to moderate coronary artery disease nonobstructive disease. Normal left ventricular end-diastolic pressure - take ASA 81mg daily as an out pt CKD 3 - continue to monitor HLD - takes simvastatin as an out pt HTN - takes Toprol XL and Lisinopril as an out pt GERD Peripheral neuropathy - takes gabapentin as an out pt Hypothyroidism - take synthroid as out pt N/V/D - x1 week of undetermined etiology - reports improvement - management per medical services H/O cholecystectomy and appendectomy Discussion and Recomendations PAF - resume OAC with Xarelto (15mg daily) d/t CKD - rate controlled - start Cardizem CD HTN - uncontrolled - restart home dose of BB (Toprol XL) CKD 3 - monitor lab closely Chronic diastolic CHF - treat with home dose of diuretics CAD - continue ASA and statin (home dose) Management of n/v/d - per medical services Advised compliance with medications Monitor lab Replace electrolytes as indicated NAVIN SALAS MD FACP FAC CCDS Oct 24, 2022 12:44
[2022-10-24] MEDS ORDERED: cefTRIAXone 1 GM PRE-MIX 50 ML IV SCH (13:00)
--- NOTE | 2022-10-24 14:39 | Occupational Therapy Eval ---
OT Evaluation-General/PLF Medical Diagnosis Admission Date Oct 23, 2022 at 16:43 Medical Diagnosis: A-fib with RVR Onset Date: Oct 23, 2022 Therapy Diagnosis Therapy Diagnosis: general weakness Height/Weight Height (Feet): 5 Height (Inches): 2.00 Weight (Pounds): 200 Weight (Ounces): 0.0 Precautions Precautions/Isolations: Fall Prevention, Standard Precautions Weight Bear Status Weight Bearing Restriction: Weight Bearing/Tolerated Referral Physician: Pool Referral Reason: Evaluation/Treatment Medical History Pertinent Medical History: Atrial Fib, Diverticulitis, Heart Failure, HTN, Renal Insufficiency Current History a-fib with RVR Reviewed History: Yes Social History Home: Single Level Current Living Status: Children Entry Into Home: Level Entry ADL-Prior Level of Function SCALE: Activities may be completed with or without assistive devices. 6-Bmfbhawuan-oalrgqz completes the activity by him/herself with no assistance from a helper. 5-Set-up or Clean-up Assistance-helper sets up or cleans up; patient completes activity. [place] assists only prior to or following the activity. 4-Supervision or Touching Assistance-helper provides verbal cues and/or touching/steadying and/or contact guard assistance as patient completes activity. Assistance may be provided throughout the activity or intermittently. 3-Partial/Moderate Assistance-helper does LESS THAN HALF the effort. [place] lifts, holds or supports trunk or limbs, but provides less than half the effort. 2-Substantial/Maximal Assistance-helper does MORE THAN HALF the effort. [place] lifts or holds trunk or limbs and provides more than half the effort. 7-Iyatxkboq-tlbppk does ALL the effort. Patient does none of the effort to complete the activity. Or, the assistance of 2 or more helpers is required for the patient to complete the activity. If activity was not attempted, code reason: 7-Patient Refused. 9-Not Applicable-not attempted and the patient did not perform the activity before the current illness, exacerbation or injury. 10-Not Attempted due to Environmental Limitations-(lack of equipment, weather restraints, etc.). 88-Not Attempted due to Medical Conditions or Safety Concerns. Self Care: Independent Functional Cognition: Independent OT Current Status Subjective Up in chair, finished soup, agreeable to OT Mental Status/Objective Patient Orientation: Person, Place, Time, Situation Attachments: Telemetry Current Glasses/Contacts: Yes Upper Extremity ROM BUE WFLS Upper Extremity Strength -4/5 BUES ADL-Treatment Eating (QC): 6 (may have regular diet, prefers soup) Oral Hygiene (QC): 6 Shower/Bathe Self (QC): 88 (d/t telemetry) Upper Body Dressing (QC): 4 (d/t lines/wires) Lower Body Dressing (QC): 4 On/Off Footwear (QC): 6 (slippers) Toileting Hygiene (QC): 5 Education OT Patient Education: Correct positioning, Energy conservation, Modified ADL techniques, Progress toward Goal/Update tx plan, Purpose of tx/functional activities, Reviewed precautions, Rehab process, Safety issues, Transfer techniques, Use of adapted equipment Teaching Recipient: Patient Teaching Methods: Demonstration, Discussion Response to Teaching: Return Demonstration, Reinforcement Needed OT Silverware Washer Goals Silverware Washer Goals Eating (QC): 6 Oral Hygiene (QC): 6 Toileting Hygiene (QC): 6 Shower/Bathe Self (QC): 6 Upper Body Dressing (QC): 6 Lower Body Dressing (QC): 6 On/Off Footwear (QC): 6 1=Demonstrate adherence to instructed precautions during ADL tasks. 2=Patient will verbalize/demonstrate understanding of assistive devices/modifications for ADL. 3=Patient will improve strength/tolerance for activity to enable patient to perform ADL's. OT Education/Plan Problem List/Assessment Assessment: Decreased Activ Tolerance, Decreased UE Strength, Impaired Coord ination, Impaired Funct Balance, Impaired Self-Care Skills Discharge Recommendations Plan/Recommendations: Continue POC Treatment Plan/Plan of Care Treatment,Training & Education: Yes Patient would benefit from OT for education, treatment and training to promote independence in ADL's, mobility, safety and/or upper extremity function for ADL's. Plan of Care: ADL Retraining, Functional Mobility, Group Exercise/Act as Ind, UE Funct Exercise/Act Treatment Duration: Oct 29, 2022 Frequency: 3 times per week (3-5 tmes/week) Estimated Hrs Per Day: .25 hour per day Agreement: Yes Rehab Potential: Fair Time Start Time: 13:10 Stop Time: 13:25 DATE: Oct 24, 2022 Total Time Billed (hr/min): 15 Billed Treatment Time 1 visit EVL 1 15 min CHANCE DIAZ OT Oct 24, 2022 14:39
--- NOTE | 2022-10-24 14:44 | History & Physical-Hospitalist ---
History of Present Illness HPI/Chief Complaint Loretta Wolff is an 82 year old female with PMH HTN, AFib, hypothyroidism, CKD 3b, who presented with nausea. She had been unable to take her medicines for the past week due to nausea. She denies chest pain. She denies palpitaitons. She denies shortness of breath. She has had diarrhea. She denies abdominal pain. She has not had any bleeding. Source: patient Exam Limitations: no limitations Date Seen 10/24/22 Time Seen by a Provider: 09:30 Attending Physician Cody Gómez MD PCP Admitting Physician: Aleta Lanza MD Attending Physician: Mariluz Mayorga MD Referring Physician Date of Admission Oct 23, 2022 at 16:43 Home Medications & Allergies Home Medications Reviewed patient Home Medication Reconciliation performed by pharmacy medication reconciliations transportation technician and/or nursing. Patients Allergies have been reviewed. Allergies Allergies Coded Allergies Sulfa (Sulfonamide Antibiotics) (Verified Allergy, Mild, ITCHING/SWOLLEN HANDS, 04/06/20) Past Ovaztfu-Zoeabj-Geuodm Hx Patient Social History Tobacco Use?: No Use of E-Cig and/or Vaping dev: No Substance use?: No Alcohol Use?: No Pt feels they are or have been: No Immunizations Up To Date Date of Influenza Vaccine: Jun 05, 2019 First/Initial COVID19 Vaccinat: AUG Second COVID19 Vaccination Rajeev: AUG Tetanus Booster (TDap): Unknown Date of Pneumonia Vaccine: Aug 28, 2013 Seasonal Allergies Seasonal Allergies: No Current Status status: No status: No Advance Directives: Yes Advance Directive Location: Copy from prev record Communicates: Verbally Primary Language: Nauruan Preferred Spoken Language: Nauruan Is interpretation needed?: No Past Medical History Surgeries: Appendectomy, Bowel Surgery, Hysterectomy, Orthopedic Currently Using CPAP: No Currently Using BIPAP: No Hypertension Neuropathy Sexually Transmitted Disease: No HIV/AIDS: No Bladder Infection, UTI-Chronic Gastroesophageal Reflux, Diverticulosis Chronic Back Pain Hypothyroidsim Loss of Vision: Denies Hearing Impairment: Denies Uterine Did You Recieve Any Treatments: Yes What Type of Treatment Did You: Surgical Intervention Recent Skin Changes Blood Disorders: No Adverse Reaction/Blood Tranf: No (HAS HAD BLOOD WITH NO REACTION) Family Medical History Cancer, Diabetes, Hypertension Review of Systems Constitutional: no symptoms reported EENTM: no symptoms reported Respiratory: no symptoms reported Cardiovascular: no symptoms reported Gastrointestinal: diarrhea, nausea, vomiting Physical Exam Physical Exam Vital Signs Vital Signs - First Documented 10/23/22 10/23/22 10:53 18:12 Temp 36.1 Pulse 124 Resp 20 B/P (MAP) 154/116 (129) Pulse Ox 96 O2 Delivery Room Air FiO2 21 Capillary Refill : Less Than 3 Seconds Height, Weight, BMI Height: 5'2.00" Weight: 200lbs. 0.0oz. [id number]; 42.73 BMI Method: General Appearance: No Apparent Distress, Obese HEENT: PERRL/EOMI, Pharynx Normal Neck: Normal Inspection, Supple Respiratory: Lungs Clear, No Respiratory Distress Cardiovascular: Regular Rate, Rhythm, No Murmur Gastrointestinal: Normal Bowel Sounds, Soft Extremity: Normal Inspection, Pedal Edema Neurologic/Psychiatric: Alert, Normal Mood/Affect Skin: Normal Color, Warm/Dry Results Results/Procedures Labs Laboratory Tests 10/23/22 11:20 10/24/22 03:44 Patient resulted labs reviewed. Imaging: Reviewed Imaging Report Assessment/Plan Admission Diagnosis AFib with RVR Admission Status: Inpatient Order (span 2 midnights) Reason for Inpatient Admission: IV cardiac medication Assessment and Plan AFib with RVR Cardizem gtt Cardiology consulted Rate now controlled Transitioning back to oral Cardizem Resume Xarelto Transfer to step down Nausea Improved Possibly due to UTI, AFib with RVR UTI Rocephin CKD 3b Monitor Avoid nephrotoxins Diagnosis/Problems Diagnosis/Problems (1) Atrial fibrillation with RVR Status: Acute (2) Nausea and vomiting Status: Acute (3) UTI (urinary tract infection) Status: Acute (4) Stage 3b chronic kidney disease Status: Chronic MARILUZ MAYORGA MD Oct 24, 2022 14:44
[2022-10-24] MEDS ORDERED: RIVAROXABAN 15 MG TABLET (XARELTO) PO SCH (17:00)
[2022-10-24] MEDS ORDERED: METO50TA7 PO (18:35)
[2022-10-24] MEDS: MELATONIN 3 MG TABLET PO PRN (21:30)
[2022-10-25] MEDS: NS IV 1000 ML 1,000 ML IV SCH ×2 (00:22→08:25)
[2022-10-25 04:24] LABS: HEMATOCRIT 29 % (35-52); HEMOGLOBIN 9.4 g/dL (11.5-16.0); MEAN CORPUSCULAR HEMOGLOBIN 30 pg (25-34); MEAN CORPUSCULAR HGB CONC 32 g/dL (32-36); MEAN CORPUSCULAR VOLUME 95 fL (80-99); MEAN PLATELET VOLUME 10.4 fL (9.0-12.2); PLATELET COUNT 307 10^3/uL (130-400); WHITE BLOOD COUNT 10.2 10^3/uL (4.3-11.0)
[2022-10-25 04:43] LABS: CALCIUM 8.3 MG/DL (8.5-10.1); CREATININE SERUM 1.38 MG/DL (0.60-1.30); POTASSIUM 3.9 MMOL/L (3.6-5.0)
[2022-10-25] MEDS ORDERED: ASPIRIN 81 MG CHEW (CHILDREN'S ASA) PO SCH (09:00)
[2022-10-25] MEDS ORDERED: meTOproloL SUCCINATE 50 MG (TOPROL XL) TAB PO SCH (09:00)
[2022-10-25] MEDS ORDERED: CEFD300C3 PO (10:16)
[2022-10-25] MEDS ORDERED: DILT240C91 PO (10:16)
--- NOTE | 2022-10-25 11:00 | Progress Note - Cardiology ---
Cardiology SOAP Progress Note Subjective: Sitting up in recliner at the bedside Wants to go home No c/o CP, SOB, palpitations, syncope or near syncope No c/o n/v/d Objective: I&O/Vital Signs 10/25/22 10/25/22 10/25/22 10/25/22 00:13 00:25 01:04 04:53 Temp 36.6 Pulse 75 73 65 Resp 27 14 B/P (MAP) 117/52 (73) 138/83 (101) Pulse Ox 96 O2 Delivery Room Air Room Air Room Air 10/25/22 10/25/22 10/25/22 07:22 08:00 09:00 Pulse 81 78 Resp 19 B/P (MAP) 163/78 (106) O2 Delivery Room Air Room Air 10/25/22 00:00 Intake Total 590 ml Balance 590 ml Weight (Pounds): 200 Weight (Ounces): 0.0 Weight (Calculated Kilograms): [id number] Constitutional: AAO x 3, well-developed, well-nourished Respiratory: No accessory muscle use, No respiratory distress; chest expansion is symmetric, chest is bilaterally symmetric, lungs clear to auscultation Cardiovascular: irregularly irregular; No JVD; S1 and S2 Gastrointestional: soft, round; No guarding; audible bowel sounds Extremities: no lower extremity edema bilateral Neurologic/Psychiatric: grossly intact (moves all extremities) Skin: other (RLE with redness and flaking, dry skin) Results/Procedures: Labs Laboratory Tests 10/25/22 04:16: White Blood Count 10.2, Red Blood Count 3.09L, Hemoglobin 9.4L, Hematocrit 29L, Mean Corpuscular Volume 95, Mean Corpuscular Hemoglobin 30, Mean Corpuscular Hemoglobin Concent 32, Red Cell Distribution Width 12.8, Platelet Count 307, Mean Platelet Volume 10.4, Sodium Level 141, Potassium Level 3.9, Chloride Level 116H, Carbon Dioxide Level 16L, Anion Gap 9, Blood Urea Nitrogen 25H, Creatinine 1.38H, Estimat Glomerular Filtration Rate 38, BUN/Creatinine Ratio 18, Glucose Level 108H, Calcium Level 8.3L Microbiology 10/23/22 MRSA Screen - Final, Complete MRSA not isolated 10/23/22 Urine Culture - Final, Complete Klebsiella pneumoniae Laboratory Tests 10/23/22 11:20 10/24/22 03:44 10/25/22 04:16 A/P: Assessment: PAF - OAC with Xarelto as out pt - currently rate controlled on Cardizem gtt Diastolic CHF - Echocardiogram of 04-11-[address] Salgado showed LVEF 55-65%. Grade 2 diastolic dysfunction. PASP 15-20 mmHg - takes Bumex as an out pt CAD - Cardiac cath of 09-11-[address] Hills showed: 50 percent stenosis in the mid LAD, FFR 0.83 after Adenosine drip. Otherwise mild to moderate coronary artery disease nonobstructive disease. Normal left ventricular end-diastolic pressure - take ASA 81mg daily as an out pt CKD 3 - continue to monitor HLD - takes simvastatin as an out pt HTN - takes Toprol XL and Lisinopril as an out pt GERD Peripheral neuropathy - takes gabapentin as an out pt Hypothyroidism - take synthroid as out pt N/V/D - x1 week of undetermined etiology - reports improvement - management per medical services H/O cholecystectomy and appendectomy Plan: PAF - continue OAC with Xarelto (15mg daily) d/t CKD - rate controlled - continue Cardizem CD HTN - Continue BB (Toprol XL) Chronic diastolic CHF - clinically compensated - continue current dose of diuretics CAD - continue ASA and statin (home dose) OK to discharge home today She wishes to follow up with her primary unix architect Dr. [place] HEATHER L ARNP Oct 25, 2022 11:00
--- NOTE | 2022-10-25 11:52 | Occupational Ther Daily Note ---
OT Current Status-Daily Note Subjective Ready to go home Mental Status/Objective Patient Orientation: Situation ADL-Treatment Therapy Code Descriptions/Definitions Functional [place] Measure: 0=Not Assessed/NA 4=Minimal Assistance 1=Total Assistance 5=Supervision or Setup 2=Maximal Assistance 6=Modified [place] 3=Moderate Assistance 7=Complete IndependenceSCALE: Activities may be completed with or without assistive devices. 6-Jtavoefvxz-ulmyqjs completes the activity by him/herself with no assistance from a helper. 5-Set-up or Clean-up Assistance-helper sets up or cleans up; patient completes activity. [place] assists only prior to or following the activity. 4-Supervision or Touching Assistance-helper provides verbal cues and/or touching/steadying and/or contact guard assistance as patient completes activity. Assistance may be provided throughout the activity or intermittently. 3-Partial/Moderate Assistance-helper does LESS THAN HALF the effort. [place] lifts, holds or supports trunk or limbs, but provides less than half the effort. 2-Substantial/Maximal Assistance-helper does MORE THAN HALF the effort. [place] lifts or holds trunk or limbs and provides more than half the effort. 7-Zikgfoyty-vhxbqt does ALL the effort. Patient does none of the effort to complete the activity. Or, the assistance of 2 or more helpers is required for the patient to complete the activity. If activity was not attempted, code reason: 7-Patient Refused. 9-Not Applicable-not attempted and the patient did not perform the activity before the current illness, exacerbation or injury. 10-Not Attempted due to Environmental Limitations-(lack of equipment, weather restraints, etc.). 88-Not Attempted due to Medical Conditions or Safety Concerns. Eating (QC): 6 Oral Hygiene (QC): 6 Shower/Bathe Self (QC): 7 Upper Body Dressing (QC): 6 Lower Body Dressing (QC): 6 On/Off Footwear: 6 Toileting Hygiene (QC): 6 Toilet Transfer (QC): 6 Education OT Patient Education: Energy conservation, Purpose of tx/functional activities, Reviewed precautions, Rehab process, Safety issues, Transfer techniques Teaching Recipient: Patient Teaching Methods: Demonstration, Discussion Response to Teaching: Return Demonstration OT Penitentiary Goals Penitentiary Goals Eating (QC): 6 Oral Hygiene (QC): 6 Toileting Hygiene (QC): 6 Shower/Bathe Self (QC): 6 Upper Body Dressing (QC): 6 Lower Body Dressing (QC): 6 On/Off Footwear (QC): 6 1=Demonstrate adherence to instructed precautions during ADL tasks. 2=Patient will verbalize/demonstrate understanding of assistive devices/modifications for ADL. 3=Patient will improve strength/tolerance for activity to enable patient to perform ADL's. OT Education/Plan Discharge Recommendations Plan/Recommendations: Discharge/Goals Met Treatment Plan/Plan of Care Treatment,Training & Education: Yes Patient would benefit from OT for education, treatment and training to promote independence in ADL's, mobility, safety and/or upper extremity function for ADL's. Plan of Care: ADL Retraining, Functional Mobility, Group Exercise/Act as Ind, UE Funct Exercise/Act Treatment Duration: Oct 29, 2022 Frequency: 3 times per week (3-5 tmes/week) Estimated Hrs Per Day: .25 hour per day Agreement: Yes Rehab Potential: Fair Time Start Time: 11:40 Stop Time: 11:52 DATE: Oct 25, 2022 Total Time Billed (hr/min): 12 Billed Treatment Time 1visit ADL 1 12 min CHANCE DIAZ OT Oct 25, 2022 11:52
--- NOTE | 2022-10-25 11:56 | Discharge Summary ---
Discharge Summary Hospital Course Was the Problem List Reviewed?: Yes Problems/Dx: (1) Atrial fibrillation with RVR Status: Acute (2) Nausea and vomiting Status: Acute (3) UTI (urinary tract infection) Status: Acute (4) Stage 3b chronic kidney disease Status: Chronic Hospital Course Date of Admission: Oct 23, 2022 at 16:43 Admission Diagnosis : AFib with RVR Family Physician/Provider: Cody Herman MD Date of Discharge: 10/25/22 Discharge Diagnosis: AFib with RVR, UTI, MARIA ANTONIA on CKD 3b Hospital Course: Loretta Wolff is an 82 year old female who was admitted with AFib with RVR. She had not taken her meds for at least a week due to nausea. Cardiology was consulted and assisted with her care. She was started on Cardizem gtt. Her n ausea resolved. She was restarted on her Xarelto. She was transitioned to oral Cardizem. Her Metoprolol was restarted. She also had a Klebsiella UTI. She was started on IV Rocehpin and was given a course of Omnicef to complete at home. She was discharged home in stable condition. She should follow up with Dr. Herman and Dr. Reyes as scheduled. Labs and Pending Lab Test: Laboratory Tests 10/25/22 04:16: White Blood Count 10.2, Red Blood Count 3.09L, Hemoglobin 9.4L, Hematocrit 29L, Mean Corpuscular Volume 95, Mean Corpuscular Hemoglobin 30, Mean Corpuscular Hemoglobin Concent 32, Red Cell Distribution Width 12.8, Platelet Count 307, Mean Platelet Volume 10.4, Sodium Level 141, Potassium Level 3.9, Chloride Level 116H, Carbon Dioxide Level 16L, Anion Gap 9, Blood Urea Nitrogen 25H, Creatinine 1.38H, Estimat Glomerular Filtration Rate 38, BUN/Creatinine Ratio 18, Glucose Level 108H, Calcium Level 8.3L Microbiology 10/23/22 MRSA Screen - Final, Complete MRSA not isolated 10/23/22 Urine Culture - Final, Complete Klebsiella pneumoniae Home Meds Active Cefdinir 300 Mg Capsule 300 Mg PO BID 5 Days Diltiazem 24Hr ER (Diltiazem HCl) 240 Mg Cap.er.24h 240 Mg PO DAILY 30 Days Ondansetron Odt (Ondansetron) 4 Mg Tab.rapdis 4 Mg PO Q6H PRN Oxycodone HCl 5 Mg Tablet 5 Mg PO Q4H PRN Xarelto Tablet (Rivaroxaban) 15 Mg Tablet 15 Mg PO DAILY@0800 Reported Metoprolol Succinate 50 Mg Tab.er.24h 50 Mg PO DAILY Bumetanide 1 Mg Tablet 1 Mg PO Q72H PRN Levothyroxine Sodium 50 Mcg Tablet 50 Mcg PO DAILY Neurontin (Gabapentin) 300 Mg Capsule 300 Mg PO 1200,1500,2000 Lisinopril 20 Mg Tablet 40 Mg PO DAILY TAKES 2 (20MG) TABS Aspirin EC (Aspirin) 81 Mg Tablet.dr 81 Mg PO BID Amitriptyline HCl 10 Mg Tablet 10 Mg PO HS Simvastatin 40 Mg Tablet 40 Mg PO HS Assessment/Pt Instructions See instructions Discharge Planning: <30 minutes discharge planning Discharge Instructions Discharge Diet: Low Sodium Diet Activity as Tolerated: Yes Consultations Cardiology Discharge Physical Examination Vital Signs Vital Signs Date Time Temp Pulse Resp B/P (MAP) Pulse Ox O2 Delivery O2 Flow Rate FiO2 10/25/22 09:00 Room Air 10/25/22 08:00 78 19 163/78 (106) 10/25/22 00:25 36.6 96 10/23/22 18:12 21 General Appearance: No Apparent Distress, Obese Respiratory: Lungs Clear, No Respiratory Distress Cardiovascular: No Murmur, Irregularly Irregular (regular rate) Gastrointestinal: Normal Bowel Sounds, Soft Extremity: Normal Inspection, No Pedal Edema Skin: Normal Color, Warm/Dry Neurologic/Psychiatric: Alert, Normal Mood/Affect Allergies: Coded Allergies: Sulfa (Sulfonamide Antibiotics) (Verified Allergy, Mild, ITCHING/SWOLLEN HANDS, 04/06/20) Copy Copies To 1: CODY HERMAN MD Discharge Summary Date of Admission Oct 23, 2022 at 16:43 Date of Discharge Discharge Date: Oct 25, 2022 Discharge Time: 09:50 Admission Diagnosis AFib with RVR Consults/Procedures Consulations Cardiology Discharge Diagnosis AFib with RVR Nausea UTI MARIA ANTONIA on CKD 3b (1) Atrial fibrillation with RVR Status: Acute (2) Nausea and vomiting Status: Acute (3) UTI (urinary tract infection) Status: Acute (4) Stage 3b chronic kidney disease Status: Chronic (5) Acute kidney injury superimposed on CKD Status: Acute MARILUZ MAYORGA MD Oct 25, 2022 11:56
--- NOTE | 2022-10-25 13:45 | Progress Note - Cardiology ---
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 sorter machine Objective: I&O/Vital Signs 10/25/22 10/25/22 10/25/22 10/25/22 04:53 07:22 08:00 09:00 Pulse 65 81 78 Resp 14 19 B/P (MAP) 138/83 (101) 163/78 (106) O2 Delivery Room Air Room Air Room Air 10/25/22 10/25/22 11:51 11:57 Temp 36.4 36.4 Pulse 84 Resp 18 B/P (MAP) 150/66 (94) O2 Delivery Room Air 10/25/22 00:00 Intake Total 590 ml Balance 590 ml Weight (Pounds): 200 Weight (Ounces): 0.0 Weight (Calculated Kilograms): [id number] Constitutional: AAO x 3, well-developed, well-nourished Respiratory: No accessory muscle use, No respiratory distress; chest expansion is symmetric, chest is bilaterally symmetric, lungs clear to auscultation Cardiovascular: irregularly irregular; No JVD; S1 and S2 Gastrointestional: soft, round; No guarding; audible bowel sounds Extremities: no lower extremity edema bilateral Neurologic/Psychiatric: grossly intact (moves all extremities) Skin: other (RLE with redness and flaking, dry skin) Results/Procedures: Labs Laboratory Tests 10/25/22 04:16: White Blood Count 10.2, Red Blood Count 3.09L, Hemoglobin 9.4L, Hematocrit 29L, Mean Corpuscular Volume 95, Mean Corpuscular Hemoglobin 30, Mean Corpuscular Hemoglobin Concent 32, Red Cell Distribution Width 12.8, Platelet Count 307, Mean Platelet Volume 10.4, Sodium Level 141, Potassium Level 3.9, Chloride Level 116H, Carbon Dioxide Level 16L, Anion Gap 9, Blood Urea Nitrogen 25H, Creatinine 1.38H, Estimat Glomerular Filtration Rate 38, BUN/Creatinine Ratio 18, Glucose Level 108H, Calcium Level 8.3L Microbiology 10/23/22 MRSA Screen - Final, Complete MRSA not isolated 10/23/22 Urine Culture - Final, Complete Klebsiella pneumoniae A/P: Assessment: PAF - OAC with Xarelto as out pt - currently rate controlled on Cardizem gtt Diastolic CHF - Echocardiogram of 04-11-[address] Salgado showed LVEF 55-65%. Grade 2 diastolic dysfunction. PASP 15-20 mmHg - takes Bumex as an out pt CAD - Cardiac cath of 09-11-[address] Hills showed: 50 percent stenosis in the mid LAD, FFR 0.83 after Adenosine drip. Otherwise mild to moderate coronary artery disease nonobstructive disease. Normal left ventricular end-diastolic pressure - take ASA 81mg daily as an out pt CKD 3 - continue to monitor HLD - takes simvastatin as an out pt HTN - takes Toprol XL and Lisinopril as an out pt GERD Peripheral neuropathy - takes gabapentin as an out pt Hypothyroidism - take synthroid as out pt N/V/D - x1 week of undetermined etiology - reports improvement - management per medical services H/O cholecystectomy and appendectomy Plan: PAF - continue OAC with Xarelto (15mg daily) d/t CKD - continue Cardizem CD HTN - Continue BB (Toprol XL) Chronic diastolic CHF - clinically compensated - continue current dose of diuretics CAD - continue ASA and statin (home dose) OK to discharge home today She wishes to follow up with her primary lumber sorter machine Dr. Zhou in [place] MD FACP FAC CCDS Oct 25, 2022 13:45
== END 2022-10-25 11:59 | disposition home or self-care (01) | DRG 690 ==
LOC: EDUNIT# 10:36 → ER 10:37 → ICU 16:43 → CSD 10-24 14:30
PROVIDERS: ADMIT Family Medicine; ATTEND Internal Medicine
DX: N39.0 Urinary tract infection, site not specified (principal); I13.0 Hypertensive heart and chronic kidney disease with heart failure and stage 1 through stage 4 chronic kidney disease, or unspecified chronic kidney disease; I50.32 Chronic diastolic (congestive) heart failure; N17.9 Acute kidney failure, unspecified; I48.0 Paroxysmal atrial fibrillation; N18.32 Chronic kidney disease, stage 3b; G62.9 Polyneuropathy, unspecified; E86.0 Dehydration; I25.10 Atherosclerotic heart disease of native coronary artery without angina pectoris; E03.9 Hypothyroidism, unspecified; K21.9 Gastro-esophageal reflux disease without esophagitis; G89.4 Chronic pain syndrome; K43.9 Ventral hernia without obstruction or gangrene; M54.9 Dorsalgia, unspecified; B96.1 Klebsiella pneumoniae [K. pneumoniae] as the cause of diseases classified elsewhere; Z88.2 Allergy status to sulfonamides; Z79.82 Long term (current) use of aspirin; Z79.01 Long term (current) use of anticoagulants; Z79.899 Other long term (current) drug therapy; Z82.49 Family history of ischemic heart disease and other diseases of the circulatory system; Z85.42 Personal history of malignant neoplasm of other parts of uterus
CPT/HCPCS: 36415; 71045; 74176; 80048; 80053; 81000; 82947; 83690; 83735; 85025; 85027; 86141; 87077; 87081; 87088; 87186; 93005

== ENCOUNTER 2022-12-02 09:42 | Emergency (ER) | payer MEDICARE, OTHER ==
[~2022-12-02] VITALS: Ht 160 cm; Wt 102.0 kg
[~2022-12-02 09:42] MED LIST changes: +DILT240C91 PO; +METO50TA7 PO
--- NOTE | 2022-12-02 10:06 | ED General ---
General Chief Complaint: Abdominal/GI Problems Stated Complaint: GI PROBLEMS Nursing Triage Note: Patient ambulatory to ER with daughter w c/o nausea. Denies N/V. Patient states started Monday. No appetite. Patients daughter states she started having acid reflux on monday. Hx of afib, and diverticulitis. Source of Information: Patient, Family (daughter) Exam Limitations: No Limitations History of Present Illness Date Seen by Provider: Dec 02, 2022 Time Seen by Provider: 09:56 Initial Comments 82-year-old female presents to the emergency department today with nausea. Symptoms started a week ago. She states she has had no appetite and has not really eaten anything for the entire week. She saw her primary doctor who gave her Zofran and Carafate without much relief. She was here about a month and a half ago and had similar symptoms. She was found to be in atrial fibrillation which was a new thing for her. She was admitted to the hospital and ultimately her symptoms improved. About a week ago her symptoms of nausea recurred. That is mainly her only concern at this time though she does endorse some intermittent heartburn symptoms which she did not have previous. She saw her insecticide expert in [place] this week and she was not in atrial fibrillation and they did not think that her symptoms at present or from atrial fibrillation or coming from her heart in general. She states the Carafate and Zofran are not helping her at all. She denies any dizziness, lightheadedness, fevers or chills. No changes in bowels. All other systems reviewed and negative except documented per HPI. Voice recognition software was used to help create this chart Allergies and Home Medications Allergies Coded Allergies: Sulfa (Sulfonamide Antibiotics) (Verified Allergy, Mild, ITCHING/SWOLLEN HANDS, 04/06/20) Patient Home Medication List Home Medication List Reviewed: Yes Amitriptyline HCl (Amitriptyline HCl) 10 Mg Tablet, 10 MG PO HS, (Reported) Entered as Reported by: BIBI STEELE on 06/27/19 1625 Aspirin (Aspirin EC) 81 Mg Tablet.dr, 81 MG PO BID, (Reported) Entered as Reported by: OLIVA VALIENTE on 09/11/19 0821 Bumetanide (Bumetanide) 1 Mg Tablet, 1 MG PO Q72H PRN for FLUID RETENTION, (Reported) Entered as Reported by: OLIVA VALIENTE on 03/04/21 1507 Cefdinir (Cefdinir) 300 Mg Capsule, 300 MG PO BID Prescribed by: MARILUZ MAYORGA on 10/25/22 1016 Diltiazem HCl (Diltiazem 24Hr ER) 240 Mg Cap.er.24h, 240 MG PO DAILY Prescribed by: MARILUZ MAYORGA on 10/25/22 1016 Gabapentin (Neurontin) 300 Mg Capsule, 300 MG PO 1200,1500,2000, (Reported) Entered as Reported by: OLIVA VALIENTE on 03/04/21 1507 Levothyroxine Sodium (Levothyroxine Sodium) 50 Mcg Tablet, 50 MCG PO DAILY, (Reported) Entered as Reported by: OLIVA VALIENTE on 03/04/21 1507 Lisinopril (Lisinopril) 20 Mg Tablet, 40 MG PO DAILY, (Reported) Entered as Reported by: OLIVA VALIENTE on 03/04/21 1507 Metoprolol Succinate (Metoprolol Succinate) 50 Mg Tab.er.24h, 50 MG PO DAILY, (Reported) Entered as Reported by: ELPIDIO SANFORD on 10/24/22 1835 Ondansetron (Ondansetron Odt) 4 Mg Tab.rapdis, 4 MG PO Q6H PRN for NAUSEA/VOMITING Prescribed by: SOUMYA BROWER on 10/21/22 1249 Oxycodone HCl (Oxycodone HCl) 5 Mg Tablet, 5 MG PO Q4H PRN for PAIN-SEVERE (8- 10) Prescribed by: MADYSON HERMAN on 03/08/21 1323 Promethazine HCl (Promethazine HCl) 50 Mg Supp.rect, 50 MG RC BID Prescribed by: SHARONA HOGAN MD on 12/02/22 1112 Rivaroxaban (Xarelto Tablet) 15 Mg Tablet, 15 MG PO DAILY@0800 Prescribed by: MADYSON HERMAN on 03/08/21 1320 Simvastatin (Simvastatin) 40 Mg Tablet, 40 MG PO HS, (Reported) Entered as Reported by: GIULIA GRAYSON on 05/27/19 1210 Review of Systems Review of Systems Constitutional: see HPI Past [id number] Hx Patient Social History Tobacco Use?: No Substance use?: No Alcohol Use?: No Immunizations Up To Date Tetanus Booster (TDap): Unknown First/Initial COVID19 Vaccinat: unknown Second COVID19 Vaccination Rajeev: AUG Third COVID19 Vaccination Date: AUG COVID19 Vaccine Hair Colorist: Sachi Seasonal Allergies Seasonal Allergies: No Past Medical History Surgery/Hospitalization HX: KNEE REPLACEMENT HIP REPLACEMENT RAVI APPSaud HY ABD SURGERY T&A Surgeries: Yes (COLOSTOMY) Appendectomy, Bowel Surgery, Hysterectomy, Orthopedic Respiratory: No Currently Using CPAP: No Currently Using BIPAP: No Cardiac: Yes Hypertension Neurological: No Neuropathy Sexually Transmitted Disease: No HIV/AIDS: No Genitourinary: No Bladder Infection, UTI-Chronic Gastrointestinal: Yes (PERFORATED BOWEL/BOWEL RESECTION/COLOSTOMY) Gastroesophageal Reflux, Diverticulosis Musculoskeletal: Yes Chronic Back Pain Endocrine: Yes Hypothyroidsim HEENT: Yes (READING GLASSES) Loss of Vision: Denies Hearing Impairment: Denies Cancer: Yes Uterine Did You Recieve Any Treatments: Yes What Type of Treatment Did You: Surgical Intervention Psychosocial: No Integumentary: Yes Recent Skin Changes Blood Disorders: No Adverse Reaction/Blood Tranf: No (HAS HAD BLOOD WITH NO REACTION) Family Medical History Reviewed Nursing Family Hx Cancer, Diabetes, Hypertension Physical Exam Vital Signs Vital Signs - First Documented 12/02/22 09:51 Temp 36.4 Pulse 85 Resp 18 B/P (MAP) 213/96 (135) Pulse Ox 97 O2 Delivery Room Air Capillary Refill : Less Than 3 Seconds Height, Weight, BMI Height: 5'2.00" Weight: 200lbs. 0.0oz. 90.220778gq; 39.00 BMI Method: General Appearance: No Apparent Distress, WD/WN HEENT: Normal ENT Inspection, Pharynx Normal Neck: Full Range of Motion, Normal Inspection, Non Tender, Supple Respiratory: Chest Non Tender, Lungs Clear, Normal Breath Sounds, No Accessory Muscle Use, No Respiratory Distress Cardiovascular: Regular Rate, Rhythm, No Murmur, Normal Peripheral Pulses Gastrointestinal: Normal Bowel Sounds, No Organomegaly, No Pulsatile Mass, Non Tender, Soft Back: Normal Inspection, No Vertebral Tenderness Extremity: Normal Capillary Refill, Normal Inspection, Normal Range of Motion, Non Tender, No Calf Tenderness Neurologic/Psychiatric: Alert, Oriented x3, No Motor/Sensory Deficits Skin: Normal Color, Warm/Dry Procedures/Interventions Date of ETT Placement: May 30, 2019 Progress/Results/Core Measures Suspected Sepsis SIRS Temperature: Pulse: 85 Respiratory Rate: 18 Laboratory Tests 12/02/22 10:26: White Blood Count 9.4 Blood Pressure 213 /96 Mean: 135 Laboratory Tests 12/02/22 10:26: Creatinine 1.95H, Platelet Count 279, Total Bilirubin 0.3 Results/Orders Lab Results Laboratory Tests Test 12/02/22 10:26 Range/Units White Blood Count 9.4 4.3-11.0 10^3/uL Red Blood Count 3.46 L 3.80-5.11 10^6/uL Hemoglobin 10.4 L 11.5-16.0 g/dL Hematocrit 32 L 35-52 % Mean Corpuscular Volume 92 80-99 fL Mean Corpuscular Hemoglobin 30 25-34 pg Mean Corpuscular Hemoglobin Concent 33 32-36 g/dL Red Cell Distribution Width 13.7 10.0-14.5 % Platelet Count 279 130-400 10^3/uL Mean Platelet Volume 11.1 9.0-12.2 fL Immature Granulocyte % (Auto) 1 % Neutrophils (%) (Auto) 65 42-75 % Lymphocytes (%) (Auto) 24 12-44 % Monocytes (%) (Auto) 8 0-12 % Eosinophils (%) (Auto) 1 0-10 % Basophils (%) (Auto) 1 0-10 % Neutrophils # (Auto) 6.1 1.8-7.8 10^3/uL Lymphocytes # (Auto) 2.2 1.0-4.0 10^3/uL Monocytes # (Auto) 0.8 0.0-1.0 10^3/uL Eosinophils # (Auto) 0.1 0.0-0.3 10^3/uL Basophils # (Auto) 0.1 0.0-0.1 10^3/uL Immature Granulocyte # (Auto) 0.1 0.0-0.1 10^3/uL Sodium Level 140 135-145 MMOL/L Potassium Level 4.3 3.6-5.0 MMOL/L Chloride Level 108 H 98-107 MMOL/L Carbon Dioxide Level 21 21-32 MMOL/L Anion Gap 11 5-14 MMOL/L Blood Urea Nitrogen 43 H 7-18 MG/DL Creatinine 1.95 H 0.60-1.30 MG/DL Estimat Glomerular Filtration Rate 25 BUN/Creatinine Ratio 22 Glucose Level 137 H 70-105 MG/DL Calcium Level 9.1 8.5-10.1 MG/DL Corrected Calcium 9.1 8.5-10.1 MG/DL Total Bilirubin 0.3 0.1-1.0 MG/DL Aspartate Amino Transf (AST/SGOT) 13 5-34 U/L Alanine Aminotransferase (ALT/SGPT) 12 0-55 U/L Alkaline Phosphatase 131 40-136 U/L Troponin I < 0.028 <0.028 NG/ML Total Protein 6.5 6.4-8.2 GM/DL Albumin 4.0 3.2-4.5 GM/DL Lipase 16 8-78 U/L My Orders Orders - EDISONSHARONA DO Comprehensive Metabolic Panel (12/02/22 10:02) Lipase (12/02/22 10:02) Chest Pa/Lat (2 View) (12/02/22 10:02) Cbc With Automated Diff (12/02/22 10:02) Iv/Invasive Line Insertion .IV INSERT (12/02/22 10:02) Diphenhydramine Injection (Benadryl Inje (12/02/22 10:15) Troponin I [place] (12/02/22 10:02) Ekg Tracing (12/02/22 10:02) Albuterol Pre-Mix Nebs (Rt) (Proventil (12/02/22 10:45) Medications Given in ED Current Medications Medications Dose Ordered Sig/Bk Route Start Time Stop Time Status Last Admin Dose Admin Diphenhydramine HCl 25 mg ONCE ONCE IVP 12/02/22 10:15 12/02/22 10:16 DC 12/02/22 10:26 25 MG Vital Signs/I&O 12/02/22 09:51 Temp 36.4 Pulse 85 Resp 18 B/P (MAP) 213/96 (135) Pulse Ox 97 O2 Delivery Room Air Capillary Refill : Less Than 3 Seconds Blood Pressure Mean: 135 ECG Comment Sinus rhythm with a rate of 76 bpm. Normal intervals. Normal axis. No ST or T wave abnormalities. No ectopy. No STEMI. Departure Communication (Admissions) Patient is hemodynamically stable. Initial differential diagnosis includes ACS, esophageal pathology including spasm, GERD, viral GI illness. There is no evidence for ACS within normal EKG, negative troponin here. She is feeling much better after GI cocktail, Benadryl and IV. She is tolerating p.o. prior to discharge. Creatinine is slightly elevated but given his within the range of her baseline of 1.7-2.0. She does have chronic kidney disease. She is discharged home with some Phenergan suppositories and recommendation to add Benadryl [id number] every 6 hours as needed for nausea. I have independently reviewed EKG and chest x-ray. Impression Primary Impression: Nausea alone Disposition: HOME, SELF-CARE Condition: Stable Departure-Patient Inst. Referrals: MADYSON HERMAN MD (PCP/Family) Primary Care Physician Patient Instructions: Nausea and Vomiting, Adult (DC) Add. Discharge Instructions: No emergent medical condition is identified for your symptoms today. This may again be coming from your esophagus. I recommend you take Nexium or Protonix [id number] and see if this helps. Take this daily for the next couple of weeks. If is not working you may stop it. I have given you Phenergan suppositories which you may use as needed if your other nausea medicines are not helping. I would add Benadryl, 25 to 50 mg every 6 hours for nausea as needed as well. Increase your fluids at home as tolerated. Follow-up with your primary doctor should your symptoms persist. Return to the emergency department for any severe concerns. All discharge instructions reviewed with patient and/or family. Voiced understanding. Scripts Promethazine HCl (Promethazine HCl) 50 Mg Supp.rect 50 MG RC BID for Nausea for 5 Days, #10 SUPP.RECT Prov: SHARONA HOGAN DO 12/02/22 SHARONA HOGAN DO Dec 02, 2022 10:06
[2022-12-02] MEDS ORDERED: diphenhydrAMINE 50 MG/ML INJ (BENADRYL) IVP ONE (10:15)
[2022-12-02 10:35] LABS: BASOPHILS # (AUTO) 0.1 10^3/uL (0.0-0.1); BASOPHILS % (AUTO) 1 % (0-10); EOSINOPHILS # (AUTO) 0.1 10^3/uL (0.0-0.3); EOSINOPHILS % (AUTO) 1 % (0-10); HEMATOCRIT 32 % (35-52); HEMOGLOBIN 10.4 g/dL (11.5-16.0); LYMPHOCYTES # (AUTO) 2.2 10^3/uL (1.0-4.0); LYMPHOCYTES % (AUTO) 24 % (12-44); MEAN CORPUSCULAR HEMOGLOBIN 30 pg (25-34); MEAN CORPUSCULAR HGB CONC 33 g/dL (32-36); MEAN CORPUSCULAR VOLUME 92 fL (80-99); MEAN PLATELET VOLUME 11.1 fL (9.0-12.2); MONOCYTES # (AUTO) 0.8 10^3/uL (0.0-1.0); MONOCYTES % (AUTO) 8 % (0-12); NEUTROPHILS # (AUTO) 6.1 10^3/uL (1.8-7.8); NEUTROPHILS % (AUTO) 65 % (42-75); PLATELET COUNT 279 10^3/uL (130-400); WHITE BLOOD COUNT 9.4 10^3/uL (4.3-11.0)
[2022-12-02] MEDS ORDERED: RT-ALBUTEROL SULF 2.5 MG/3 ML PRE-MIX VIAL INH ONE (10:45)
[2022-12-02 10:48] LABS: CHLORIDE 108 MMOL/L (98-107); POTASSIUM 4.3 MMOL/L (3.6-5.0); SODIUM 140 MMOL/L (135-145)
[2022-12-02 10:49] LABS: CALCIUM 9.1 MG/DL (8.5-10.1)
[2022-12-02 10:50] LABS: GLUCOSE 137 MG/DL (70-105); TOTAL PROTEIN 6.5 GM/DL (6.4-8.2)
[2022-12-02 10:51] LABS: CARBON DIOXIDE 21 MMOL/L (21-32)
[2022-12-02 10:52] LABS: BILIRUBIN,TOTAL 0.3 MG/DL (0.1-1.0)
[2022-12-02 10:54] LABS: ALKALINE PHOSPHATASE 131 U/L (40-136); CREATININE SERUM 1.95 MG/DL (0.60-1.30); GFR ESTIMATED 25
[2022-12-02 10:55] LABS: BUN/CREATININE RATIO 22
[2022-12-02 10:57] LABS: ALANINE AMINOTRANSFERASE 12 U/L (0-55); LIPASE 16 U/L (8-78)
[2022-12-02] MEDS ORDERED: PROM50SU11 RC (11:12)
--- NOTE | 2022-12-02 11:16 | Diagnostic Imaging Report ---
PATIENT HISTORY: Burning in chest, vomiting. TECHNIQUE: Two views of the chest. COMPARISON: 10/23/2022. FINDINGS: The lung volumes are normal. No focal consolidation is seen. No large pleural effusion or pneumothorax is seen. The cardiomediastinal silhouette is normal in size and contour. No acute osseous abnormality is seen. There are degenerative changes in the spine. There is an old compression deformity of L1. IMPRESSION: No acute pulmonary abnormality seen. Dictated by: Dictated on workstation # [id number]
[2022-12-02 11:20] VITALS: BP 202/97
== END 2022-12-02 11:20 | disposition home or self-care (01) ==
LOC: EDUNIT# 09:42 → ER 09:44
DX: I12.9 Hypertensive chronic kidney disease with stage 1 through stage 4 chronic kidney disease, or unspecified chronic kidney disease (principal); N18.9 Chronic kidney disease, unspecified; R11.0 Nausea
CPT/HCPCS: 36415; 71046; 80053; 83690; 84484; 85025; 93005

== ENCOUNTER 2022-12-09 08:32 | Emergency (ER) | payer MEDICARE, OTHER ==
[~2022-12-09] VITALS: Ht 157 cm; Wt 104.0 kg
[~2022-12-09 08:32] MED LIST changes: +PROM50SU11 RC
[2022-12-09] MEDS ORDERED: NS IV 1000 ML 1,000 ML IV STA (09:16)
--- NOTE | 2022-12-09 09:16 | ED General ---
General Chief Complaint: General Problems/Pain Stated Complaint: CANNOT URINATE OR DEFECATE Nursing Triage Note: PT TO RM 7 PER W/C PT CO NO VOIDING SINCE LAST PM OR HAVING BM MONDAY. DENIES ABD PAIN AT THIS X. PT CO OF NAUSEA. PT STATES NOT EATING VERY WELL Source of Information: Patient, Family (daughter) Exam Limitations: No Limitations History of Present Illness Date Seen by Provider: Dec 09, 2022 Time Seen by Provider: 08:50 Initial Comments Loretta is an 82-year-old female who presents to the emergency department with a chief complaint of abdominal discomfort, nausea, no bowel movement since Monday and has not voided since last evening. Patient states for the last couple of weeks she has had chronic nausea. She has not had any vomiting. She is trialled multiple [id number] "nausea medications" per her daughter. She denies fevers or chills. She denies dysuria, urgency or frequency. She feels like she may have an abnormal vaginal discharge. She complains of soreness to her left groin. She has had decreased appetite over the last week. She saw Dr. Malcolm 2 days ago on Monday and is scheduled for a "scope" next Monday. She is not sure if it is an EGD or colonoscopy. She has had prior abdominal surgery per Dr. Malcolm. Denies black or bloody stools. Did have diarrhea on Monday 5 days ago. Denies chest pain, shortness of breath. Is concerned mostly because she has not urinated since yesterday. history of hypertension. No diabetes. Primary care physician is Dr. Herman. Timing/Duration: Other (2 weeks) Severity: Mild Associated Systoms: Malaise, Other (nausea; decreased appetite) Allergies and Home Medications Allergies Coded Allergies: Sulfa (Sulfonamide Antibiotics) (Verified Allergy, Mild, ITCHING/SWOLLEN HANDS, 04/06/20) Patient Home Medication List Home Medication List Reviewed: Yes Amitriptyline HCl (Amitriptyline HCl) 10 Mg Tablet, 10 MG PO HS, (Reported) Entered as Reported by: BIBI STEELE on 06/27/19 1625 Aspirin (Aspirin EC) 81 Mg Tablet., 81 MG PO BID, (Reported) Entered as Reported by: OLIVA VALIENTE on 09/11/19 0821 Bumetanide (Bumetanide) 1 Mg Tablet, 1 MG PO Q72H PRN for FLUID RETENTION, (Reported) Entered as Reported by: OLIVA VALIENTE on 03/04/21 1507 Cefdinir (Cefdinir) 300 Mg Capsule, 300 MG PO BID Prescribed by: MARILUZ MAYORGA on 10/25/22 1016 Diltiazem HCl (Diltiazem 24Hr ER) 240 Mg Cap.er.24h, 240 MG PO DAILY Prescribed by: MARILUZ MAYORGA on 10/25/22 1016 Gabapentin (Neurontin) 300 Mg Capsule, 300 MG PO 1200,1500,2000, (Reported) Entered as Reported by: OLIVA VALIENTE on 03/04/21 1507 Levothyroxine Sodium (Levothyroxine Sodium) 50 Mcg Tablet, 50 MCG PO DAILY, (Reported) Entered as Reported by: OLIVA VALIENTE on 03/04/21 1507 Lisinopril (Lisinopril) 20 Mg Tablet, 40 MG PO DAILY, (Reported) Entered as Reported by: OLIVA VALIENTE on 03/04/21 1507 Metoclopramide HCl (Reglan) 5 Mg Tablet, 5 MG PO Q6H Prescribed by: DUNIA SALDIVAR on 12/09/22 1153 Metoprolol Succinate (Metoprolol Succinate) 50 Mg Tab.er.24h, 50 MG PO DAILY, (Reported) Entered as Reported by: ELPIDIO SANFORD on 10/24/22 1835 Ondansetron (Ondansetron Odt) 4 Mg Tab.rapdis, 4 MG PO Q6H PRN for NAUSEA/VOMITING Prescribed by: SOUMYA BROWER on 10/21/22 1249 Oxycodone HCl (Oxycodone HCl) 5 Mg Tablet, 5 MG PO Q4H PRN for PAIN-SEVERE (8- 10) Prescribed by: MADYSON HERMAN on 03/08/21 1323 Pantoprazole Sodium (Protonix) 40 Mg Granpkt.dr, 40 MG PO DAILY Prescribed by: DUNIA SALDIVAR on 12/09/22 1153 Promethazine HCl (Promethazine HCl) 50 Mg Supp.rect, 50 MG RC BID Prescribed by: SHARONA HOGAN MD on 12/02/22 1112 Rivaroxaban (Xarelto Tablet) 15 Mg Tablet, 15 MG PO DAILY@0800 Prescribed by: MADYSON HERMAN on 03/08/21 1320 Simvastatin (Simvastatin) 40 Mg Tablet, 40 MG PO HS, (Reported) Entered as Reported by: GIULIA GRAYSON on 05/27/19 1210 Review of Systems Review of Systems Constitutional: see HPI, malaise EENTM: no symptoms reported Respiratory: no symptoms reported Cardiovascular: no symptoms reported Gastrointestinal: constipation, nausea Genitourinary: decreased output Musculoskeletal: no symptoms reported Skin: no symptoms reported Past Jwyxjlk-Pkivrs-Rlmzem Hx Patient Social History Tobacco Use?: No Substance use?: No Alcohol Use?: No Pt feels they are or have been: No Immunizations Up To Date Tetanus Booster (TDap): Unknown Influenza Vaccine Up-to-Date: Yes; Up-to-Date First/Initial COVID19 Vaccinat: YES Second COVID19 Vaccination Rajeev: YES Third COVID19 Vaccination Date: YES Seasonal Allergies Seasonal Allergies: No Past Medical History Surgery/Hospitalization HX: KNEE REPLACEMENT HIP REPLACEMENT RAVI APPY HYST ABD SURGERY HTN, KIDNEY FAILURE, HEART PROBLEMS A-FIB. Surgeries: Yes (COLOSTOMY) Appendectomy, Bowel Surgery, Hysterectomy, Orthopedic Respiratory: No Currently Using CPAP: No Currently Using BIPAP: No Cardiac: Yes Hypertension Neurological: No Neuropathy Sexually Transmitted Disease: No HIV/AIDS: No Genitourinary: No Bladder Infection, UTI-Chronic Gastrointestinal: Yes (PERFORATED BOWEL/BOWEL RESECTION/COLOSTOMY) Gastroesophageal Reflux, Diverticulosis Musculoskeletal: Yes Chronic Back Pain Endocrine: Yes Hypothyroidsim HEENT: Yes (READING GLASSES) Loss of Vision: Denies Hearing Impairment: Denies Cancer: Yes Uterine Did You Recieve Any Treatments: Yes What Type of Treatment Did You: Surgical Intervention Psychosocial: No Integumentary: Yes Recent Skin Changes Blood Disorders: No Adverse Reaction/Blood Tranf: No (HAS HAD BLOOD WITH NO REACTION) Family Medical History Cancer, Diabetes, Hypertension Physical Exam Vital Signs Vital Signs - First Documented 12/09/22 12/09/22 08:44 12:08 Temp 36.1 Pulse 69 Resp 16 B/P (MAP) 158/88 (111) Pulse Ox 97 O2 Delivery Room Air Capillary Refill : Less Than 3 Seconds Height, Weight, BMI Height: 5'2.00" Weight: 200lbs. 0.0oz. 90.026707gm; 42.00 BMI Method: General Appearance: No Apparent Distress, WD/WN Eyes: Bilateral Eye Normal Inspection HEENT: PERRL/EOMI Respiratory: Lungs Clear, Normal Breath Sounds, No Accessory Muscle Use, No Respiratory Distress Cardiovascular: Regular Rate, Rhythm, Normal Peripheral Pulses Gastrointestinal: Non Tender, Soft, Abnormal Bowel Sounds (hypoactive) Rectal: Normal Rectal Tone, Heme Negative Stool, Other (small amount of hard stool in vault) Extremity: Normal Inspection, Normal Range of Motion Neurologic/Psychiatric: Alert, Oriented x3, No Motor/Sensory Deficits, Normal Mood/Affect, director of 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 II-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 Norm as Tested Skin: Normal Color, Warm/Dry, Erythema (mild amount of faint erythema right groin; no open wound) Procedures/Interventions Date of ETT Placement: May 30, 2019 Progress/Results/Core Measures Suspected Sepsis SIRS Temperature: Pulse: 69 Respiratory Rate: 16 Laboratory Tests 12/09/22 08:50: White Blood Count 9.6 Blood Pressure 158 /88 Mean: 111 Laboratory Tests 12/09/22 08:50: Creatinine 2.12H, Platelet Count 262, Total Bilirubin 0.3 Results/Orders Lab Results Laboratory Tests Test 12/09/22 08:50 12/09/22 10:08 Range/Units White Blood Count 9.6 4.3-11.0 10^3/uL Red Blood Count 3.59 L 3.80-5.11 10^6/uL Hemoglobin 10.8 L 11.5-16.0 g/dL Hematocrit 33 L 35-52 % Mean Corpuscular Volume 92 80-99 fL Mean Corpuscular Hemoglobin 30 25-34 pg Mean Corpuscular Hemoglobin Concent 33 32-36 g/dL Red Cell Distribution Width 13.8 10.0-14.5 % Platelet Count 262 130-400 10^3/uL Mean Platelet Volume 11.8 9.0-12.2 fL Immature Granulocyte % (Auto) 1 % Neutrophils (%) (Auto) 61 42-75 % Lymphocytes (%) (Auto) 27 12-44 % Monocytes (%) (Auto) 8 0-12 % Eosinophils (%) (Auto) 2 0-10 % Basophils (%) (Auto) 1 0-10 % Neutrophils # (Auto) 5.9 1.8-7.8 10^3/uL Lymphocytes # (Auto) 2.6 1.0-4.0 10^3/uL Monocytes # (Auto) 0.8 0.0-1.0 10^3/uL Eosinophils # (Auto) 0.2 0.0-0.3 10^3/uL Basophils # (Auto) 0.1 0.0-0.1 10^3/uL Immature Granulocyte # (Auto) 0.1 0.0-0.1 10^3/uL Sodium Level 140 135-145 MMOL/L Potassium Level 4.2 3.6-5.0 MMOL/L Chloride Level 109 H 98-107 MMOL/L Carbon Dioxide Level 18 L 21-32 MMOL/L Anion Gap 13 5-14 MMOL/L Blood Urea Nitrogen 49 H 7-18 MG/DL Creatinine 2.12 H 0.60-1.30 MG/DL Estimat Glomerular Filtration Rate 23 BUN/Creatinine Ratio 23 Glucose Level 163 H 70-105 MG/DL Calcium Level 9.3 8.5-10.1 MG/DL Corrected Calcium 9.3 8.5-10.1 MG/DL Total Bilirubin 0.3 0.1-1.0 MG/DL Aspartate Amino Transf (AST/SGOT) 13 5-34 U/L Alanine Aminotransferase (ALT/SGPT) 11 0-55 U/L Alkaline Phosphatase 140 H 40-136 U/L Total Protein 6.6 6.4-8.2 GM/DL Albumin 4.0 3.2-4.5 GM/DL Urine Color YELLOW Urine Clarity CLEAR Urine pH 6.0 5-9 Urine Specific [place] 1.010 L 1.016-1.022 Urine Protein TRACE H NEGATIVE Urine Glucose (UA) NEGATIVE NEGATIVE Urine Ketones NEGATIVE NEGATIVE Urine Nitrite NEGATIVE NEGATIVE Urine Bilirubin NEGATIVE NEGATIVE Urine Urobilinogen 0.2 < = 1.0 MG/DL Urine Leukocyte Esterase 1+ H NEGATIVE Urine RBC (Auto) NEGATIVE NEGATIVE Urine RBC NONE /HPF Urine WBC 5-10 H /HPF Urine Squamous Epithelial Cells NONE /HPF Urine Crystals NONE /LPF Urine Bacteria FEW H /HPF Urine Casts NONE /LPF Urine Mucus NEGATIVE /LPF Urine Culture Indicated YES My Orders Orders - DUNIA SALDIVAR MD Ed Iv/Invasive Line Start (12/09/22 09:16) Cbc With Automated Diff (12/09/22 09:16) Comprehensive Metabolic Panel (12/09/22 09:16) Ua Culture If Indicated (12/09/22 09:16) Ns Iv 1000 Ml (Sodium Chloride 0.9%) (12/09/22 09:16) Pantoprazole Injection (Protonix Injecti (12/09/22 10:45) Urine Culture (12/09/22 10:08) Ns Iv 500 Ml (Sodium Chloride 0.9%) (12/09/22 11:14) Ceftriaxone Iv/Im (Rocephin Iv/Im) (12/09/22 11:30) Metoclopramide Injection (Reglan Injecti (12/09/22 11:30) Diphenhydramine Injection (Benadryl Inje (12/09/22 11:30) Medications Given in ED Vital Signs/I&O 12/09/22 12/09/22 08:44 12:08 Temp 36.1 Pulse 69 58 Resp 16 16 B/P (MAP) 158/88 (111) 185/84 Pulse Ox 97 98 O2 Delivery Room Air Capillary Refill : Less Than 3 Seconds Blood Pressure Mean: 111 Progress Note : Time: 11:30 Progress Note Patient seen and examined by me. Evaluation today includes physical exam, CBC, Chem-12, urinalysis. Pertinent physical exam findings well-developed well- nourished obese female in no acute distress. dry oral mucosa. Heart is regular, lungs are clear. Abdomen is soft no significant rebound tenderness involuntary guarding. Normal to hypoactive bowel sounds. Mild erythema in the left groin without any open wounds. No significant lower extremity edema. No focal neurologic deficits. Vital signs are stable. Differential diagnosis based on history and physical exam, gastritis, GERD, irritable bowel syndrome. Labs independently reviewed by me. CBC shows hemoglobin of 10.8 HCT 33. Chem 12 ismostly roger, - sodium 140, K 4.2, Chloride 109, CO2 18, BUN 49, Creat 2.12, gly 163. UA shows trace protein, 1+ LE, 5-10 WBC and few bacteria (patient is asymptommatic of UTI). Patient is treated with 1500ml of NS (clinically looks very dry). given 5mg reglan and 12.5mg of benadryl for nausea. Also 40mg protonix. Consideration for CT abdomen and pelvis, however h/P do not support the need. Patient has follow up scheduled with Dr Malcolm next week. I spoke with her at length about her kidney function and feel this is driving alot of her issues. She states she has never been referred to a legal billing analyst. She has had quite a decline in renal function in the last month to 6 weeks. I also think a significant component of her nausea is GERD related - she has tried carafate with no relief, starting some protonix at 40mg. I gave her referral information for the nephrology groups in [place]. She does not have any clinically or objective findings to support the need for advanced imaging or admission at this time. Return precautions provided in both written and verbal form. SHe is very comfortable with the plan of care. All questions are sought and answered and she is improved at discharge. Departure Impression Primary Impression: Nausea alone Additional Impression: Chronic kidney disease (CKD) Qualified Codes: N18.9 - Chronic kidney disease, unspecified Disposition: 01 HOME, SELF-CARE Condition: Improved Departure-Patient Inst. Decision time for Depature: 11:41 Referrals: MADYSON HERMAN MD (PCP) Primary Care Physician Patient Instructions: Chronic Kidney Disease (DC), Kidney Disease Diet (For People Not on Dialysis) Add. 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 Take one a day for the next 4-8 weeks. Also Reglan (metocloperamide) 30 minutes before meals every 6 hours and at bedtime as needed for nausea. You will need to follow up with a Kidney doctor. Nephrology in [place] includes : [facility] [phone] (through [facility] - they also see [place] patients). And the [place] group is the [facility] [phone] Drink plenty of fluids to stay well hydrated. Return to the Emergency Department for any new, concerning or emergent complaints. Scripts Pantoprazole Sodium (Protonix) 40 Mg Granpkt.dr 40 MG PO DAILY for 30 Days, #30 TAB 1 Refill Prov: DUNIA SALDIVAR MD 12/09/22 Metoclopramide HCl (Reglan) 5 Mg Tablet 5 MG PO Q6H, #60 TAB every 6 hours 30 min before meals Prov: DUNIA SALDIVAR MD 12/09/22 Copy Copies To 1: MADYSON HERMAN MD Copies To 2: NAJMA MALCOLM DO DUNIA SALDIVAR MD Dec 09, 2022 09:16
[2022-12-09 09:27] LABS: BASOPHILS # (AUTO) 0.1 10^3/uL (0.0-0.1); BASOPHILS % (AUTO) 1 % (0-10); EOSINOPHILS # (AUTO) 0.2 10^3/uL (0.0-0.3); EOSINOPHILS % (AUTO) 2 % (0-10); HEMATOCRIT 33 % (35-52); HEMOGLOBIN 10.8 g/dL (11.5-16.0); LYMPHOCYTES # (AUTO) 2.6 10^3/uL (1.0-4.0); LYMPHOCYTES % (AUTO) 27 % (12-44); MEAN CORPUSCULAR HEMOGLOBIN 30 pg (25-34); MEAN CORPUSCULAR HGB CONC 33 g/dL (32-36); MEAN CORPUSCULAR VOLUME 92 fL (80-99); MEAN PLATELET VOLUME 11.8 fL (9.0-12.2); MONOCYTES # (AUTO) 0.8 10^3/uL (0.0-1.0); MONOCYTES % (AUTO) 8 % (0-12); NEUTROPHILS # (AUTO) 5.9 10^3/uL (1.8-7.8); NEUTROPHILS % (AUTO) 61 % (42-75); PLATELET COUNT 262 10^3/uL (130-400); WHITE BLOOD COUNT 9.6 10^3/uL (4.3-11.0)
[2022-12-09 09:32] LABS: POTASSIUM 4.2 MMOL/L (3.6-5.0)
[2022-12-09 09:33] LABS: CALCIUM 9.3 MG/DL (8.5-10.1)
[2022-12-09 09:34] LABS: TOTAL PROTEIN 6.6 GM/DL (6.4-8.2)
[2022-12-09 09:36] LABS: BILIRUBIN,TOTAL 0.3 MG/DL (0.1-1.0)
[2022-12-09 09:38] LABS: CREATININE SERUM 2.12 MG/DL (0.60-1.30)
[2022-12-09 10:18] LABS: BILIRUBIN,URINE NEGATIVE (NEGATIVE); CLARITY,URINE CLEAR; COLOR,URINE YELLOW; GLUCOSE, URINE (UA) NEGATIVE (NEGATIVE); KETONES,URINE NEGATIVE (NEGATIVE); LEUKOCYTE ESTERASE ,URINE 1+ (NEGATIVE); NITRITE,URINE NEGATIVE (NEGATIVE); PROTEIN,URINE TRACE (NEGATIVE)
[2022-12-09 10:32] LABS: BACTERIA,URINE FEW /HPF
[2022-12-09] MEDS ORDERED: PANTOPRAZOLE 40 MG (PROTONIX) VIAL IV ONE (10:45)
[2022-12-09] MEDS ORDERED: NS IV 500 ML 500 ML IV STA (11:14)
[2022-12-09] MEDS ORDERED: METOCLOPRAMIDE INJ 10 MG/2 ML (REGLAN) IVP ONE (11:30)
[2022-12-09] MEDS ORDERED: cefTRIAXone IV/IM 1,000 MG in NS (IVPB) 50 ML IV ONE (11:30)
[2022-12-09] MEDS ORDERED: diphenhydrAMINE 50 MG/ML INJ (BENADRYL) IVP ONE (11:30)
[2022-12-09] MEDS ORDERED: METO5TAB75 PO (11:53)
[2022-12-09] MEDS ORDERED: PANT40SU PO (11:53)
[2022-12-09 12:08] VITALS: BP 185/84
== END 2022-12-09 12:08 | disposition home or self-care (01) ==
LOC: EDUNIT# 08:32 → ER 08:34
DX: R11.0 Nausea (principal); I12.9 Hypertensive chronic kidney disease with stage 1 through stage 4 chronic kidney disease, or unspecified chronic kidney disease; N18.9 Chronic kidney disease, unspecified; E66.9 Obesity, unspecified; Z68.41 Body mass index [BMI] 40.0-44.9, adult
CPT/HCPCS: 36415; 80053; 81000; 82274; 85025; 87077; 87088; 87186

== ENCOUNTER → 2023-01-02 | Outpatient (CLI) | payer MEDICARE, OTHER ==
[~2023-01-02] MED LIST changes: +METO5TAB75 PO; +PANT40SU PO
--- NOTE | 2023-01-02 14:49 | Diagnostic Imaging Report ---
INDICATION: Chronic kidney disease. History of hypertension. COMPARISON: 06/03/2019 TECHNIQUE: Routine grayscale and color flow images of the kidneys was performed. Duplex evaluation of the kidneys and renal arteries was also performed. FINDINGS: Right kidney measures 9.4 cm in length and left measures 8.5 cm. Cortical thickness and cortical medullary differentiation are maintained, bilaterally. There is no evidence of hydronephrosis, calculus, nor mass. There is no ascites. Renal Doppler evaluation was also performed. Peak systolic velocity within the abdominal aorta measures 142 cm/s. Peak systolic velocity within the right renal artery ranges from 49 to 86 cm/s. Peak systolic velocity within the left renal artery ranges from 57 to 100 cm/s. Arcuate artery resistive index on the right ranges from 0.75 to 0.77. On the left, this ranges from 0.76 to 0.84. IMPRESSION: 1. Unremarkable grayscale and color flow appearance to both kidneys. 2. No evidence of renal artery stenosis is seen on either side. 3. Bilateral arcuate artery resistive indices are slightly elevated. This is nonspecific and can be seen in arteriosclerosis resulting from long-standing hypertension or diabetes. Please correlate with clinical history. Dictated by: Dictated on workstation # [id number]
== END ==
LOC: RAD 07:15
PROVIDERS: ATTEND Internal Medicine Nephrology
DX: I12.9 Hypertensive chronic kidney disease with stage 1 through stage 4 chronic kidney disease, or unspecified chronic kidney disease (principal); N18.4 Chronic kidney disease, stage 4 (severe); E83.9 Disorder of mineral metabolism, unspecified
CPT/HCPCS: 76770; 93975

== ENCOUNTER 2023-05-26 08:18 | Outpatient (RCR) | payer MEDICARE, OTHER ==
[2023-05-12 08:35] VITALS: BP 134/62
[2023-05-12] MEDS: IRON SUCROSE 200 MG/10 ML VIAL IV SCH (10:32)
[2023-05-19 08:15] VITALS: BP 133/64
[2023-05-19] MEDS: IRON SUCROSE 200 MG/10 ML VIAL IV SCH (08:38)
[~2023-05-26] VITALS: Ht 150 cm; Wt 104.0 kg
[~2023-05-26 08:18] MED LIST changes: +IRON SUCROSE 200 MG/10 ML VIAL IV ONE
[2023-05-26] MEDS: IRON SUCROSE 200 MG/10 ML VIAL IV SCH (08:29)
[2023-05-26 08:30] VITALS: BP 117/68
== END 2023-05-27 | disposition home or self-care (01) ==
LOC: SDC 08:18
PROVIDERS: ATTEND Family Medicine
DX: D50.8 Other iron deficiency anemias (principal); R53.83 Other fatigue
CPT/HCPCS: 96365

== ENCOUNTER 2023-06-05 09:37 | Outpatient (RCR) | payer MEDICARE, OTHER ==
[~2023-06-05] VITALS: Wt 104.0 kg
[~2023-06-05 09:37] MED LIST changes: -IRON SUCROSE 200 MG/10 ML VIAL IV ONE
[2023-06-05] MEDS ORDERED: IRON SUCROSE 200 MG/10 ML VIAL IV ONE (09:53)
[2023-06-05] MEDS ORDERED: IRON SUCROSE 200 MG/10 ML VIAL IV SCH (10:00)
[2023-06-05 10:15] VITALS: BP 161/65
== END 2023-06-27 | disposition home or self-care (01) ==
LOC: SDC 09:37
PROVIDERS: ATTEND Family Medicine
DX: D50.8 Other iron deficiency anemias (principal); R53.83 Other fatigue
CPT/HCPCS: 96365